=== PATIENT | female | born 1955 | race Caucasian/White ===

== ENCOUNTER 2022-10-16 07:33 | Outpatient (OUT) | payer MEDICARE, MEDICAID, SELFPAY ==
[2022-10-16 08:19] LABS: Estimated Average Glucose 163 mg/dL; Glycohemoglobin A1C 7.3 % (4.5-6.2)
== END 2022-10-16 07:34 | disposition home or self-care (01) ==
LOC: LAB 07:37
PROVIDERS: PCP Nurse Practitioner; Visit Provider Nurse Practitioner
DX: E11.9 Type 2 diabetes mellitus without complications (principal)
CPT/HCPCS: 36415; 83036

== ENCOUNTER 2022-12-02 08:05 | Outpatient (OUT) | payer MEDICARE, MEDICAID, SELFPAY ==
--- NOTE | 2022-12-02 08:17 | MR_ITS ---
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 Images were performed without and with intravenous Dotarem contrast. FINDINGS: IACS: No evidence of acoustic schwannoma or other posterior fossa mass. INNER EARS: No abnormal signal intensity. MIDDLE EARS: No fluid or abnormal soft tissue. MASTOIDS: No fluid or abnormal soft tissue. SKULL BASE: Fluid-filled pituitary fossa; pituitary atrophy versus arachnoid cyst. CEREBRUM: Numerous T2 hyperintensities throughout the periventricular and subcortical deep white matter. No edema, hemorrhage, mass, acute infarction, or inappropriate atrophy. CEREBELLUM: No edema, hemorrhage, mass, acute infarction, or inappropriate atrophy. BRAINSTEM: No edema, hemorrhage, mass, acute infarction, or inappropriate atrophy. CSF SPACES: Ventricles, cisterns, and sulci are appropriate for age. No hydrocephalus, subarachnoid hemorrhage, or mass. SINUSES: Limited views demonstrate no significant mucosal thickening or fluid. ORBITS: Limited views are unremarkable. OTHER: No abnormal meningeal or parenchymal enhancement. MR/MR head/brain wo/w con IMPRESSION: 1. No abnormal or suspicious findings to account for patient's right side hearing loss. 2. Numerous T2 hyperintensities throughout the deep white matter; chronic small vessel ischemic changes versus demyelinating process/multiple sclerosis. 3. Mild atrophy; age consistent. Electronically authenticated by: GEORGINA HATCH Date: 12/03/2022 07:30
[2022-12-02 08:22] LABS: Estimated GFR (African America >60 (>=60); Estimated GFR (Non-African Ame >60 (>=60)
== END 2022-12-02 08:06 | disposition home or self-care (01) ==
LOC: LAB 08:06
PROVIDERS: PCP Nurse Practitioner; Visit Provider Otolaryngology
DX: H90.3 Sensorineural hearing loss, bilateral (principal); H93.11 Tinnitus, right ear
CPT/HCPCS: 36415; 70553; 82565; A9575

== ENCOUNTER 2023-01-07 08:43 | Outpatient (OUT) | payer MEDICARE, MEDICAID, SELFPAY ==
--- NOTE | 2023-01-07 08:48 | XR_ITS ---
The [address] [address] Patient Name: KEE MANUEL MRN: [id number] date: 1955 Sex: F Assigned Patient Location: [facility] Current Patient Location: [facility] Accession/Order Number: [id number] Exam Date: 01/07/2023 09:05 Report Date: 01/07/2023 09:39 At the request of: ADRI BARRAGAN Procedure: XR hip RT min 2V EXAM: Right hip HISTORY: . Right Thigh Pain With Numbness . COMPARISON: None. TECHNIQUE: 3 views FINDINGS: Bony pelvis is intact. No fracture or bony destructive process is noted. No fracture or dislocation of the left hip is noted. Joint spaces well-maintained. Minimal spurring is noted involving the femoral head. XR/XR hip RT min 2V IMPRESSION: 1. No acute abnormality of the pelvis. 2. Early osteoarthritic changes of the right hip. Electronically authenticated by: LIZY COLON Date: 01/07/2023 09:39
--- NOTE | 2023-01-07 08:48 | XR_ITS ---
[place] [id number] Patient Name: KEE MANUEL MRN: [id number] date: 1955 Sex: F Assigned Patient Location: [facility] Current Patient Location: [facility] Accession/Order Number: [id number] Exam Date: 01/07/2023 09:05 Report Date: 01/07/2023 13:06 At the request of: ADRI BARRAGAN Procedure: XR lumbar spine min 4V EXAM: XR lumbar spine min 4V HISTORY: Right Thigh Pain With Numbness COMPARISON: None. TECHNIQUE: 5 views FINDINGS: Satisfactory alignment. Maintained vertebral body heights and disc spaces. Multilevel endplate degenerative changes and facet arthropathy of L3-S1. No acute fracture or significant subluxation. Scattered calcified atherosclerotic disease of aorta. XR/XR lumbar spine min 4V IMPRESSION: Degenerative changes as above. Electronically authenticated by: GRACY VILLASENOR Date: 01/07/2023 13:06
== END 2023-01-07 08:44 | disposition home or self-care (01) ==
LOC: RAD 08:43
PROVIDERS: PCP Nurse Practitioner; Visit Provider Nurse Practitioner
DX: M79.651 Pain in right thigh (principal); R20.0 Anesthesia of skin
CPT/HCPCS: 72110; 73502

== ENCOUNTER 2023-04-23 10:05 | Outpatient (OUT) | payer MEDICARE, MEDICAID, SELFPAY ==
[2023-04-23 11:03] LABS: Estimated Average Glucose 134 mg/dL; Glycohemoglobin A1C 6.3 % (4.5-6.2)
== END 2023-04-23 10:06 | disposition home or self-care (01) ==
LOC: LAB 10:06
PROVIDERS: PCP Nurse Practitioner; Visit Provider Nurse Practitioner
DX: E11.9 Type 2 diabetes mellitus without complications (principal)
CPT/HCPCS: 36415; 83036

== ENCOUNTER 2023-07-10 08:54 | Outpatient (OUT) | payer MEDICARE, MEDICAID, SELFPAY ==
--- NOTE | 2023-07-10 08:56 | MM_ITS ---
Patient Name: KEE MANUEL MR#: [id number] : 1955 Exam Date: 07/10/2023 Ordering Doctor: ARLEEN Nieto CNP RADIOLOGY REPORT PROCEDURE: MM TOMOSYNTHESIS SCREENING BI COMPARISON: MG MAMM SCREEN 3D VEDA CAD, 07/04/2022. MG MAMM SCREEN 3D [facility]A CAD, 07/02/2021. MG MAMM SCREEN [facility]A W CAD, 06/30/2020. MAMMO VEDA SCREEN, 01/13/2012. INDICATIONS: Screening Calculator Name NCI Breast Cancer Risk Assessment Tool 5 Year Breast Cancer Risk 2.10% Lifetime Breast Cancer Risk 6.40% Personal Breast Cancer No Personal Ovarian Cancer No Treatments None Family Cancers Daughter with endometrial cancer at age 36; Grandfather-maternal with pancreatic cancer at age ~65. LOCATION: [facility] BREAST COMPOSITION: Scattered areas fibroglandular density. FINDINGS: DIAGNOSTIC CATEGORY 2--BENIGN FINDING: RIGHT BREAST: No significant suspicious finding. Scattered benign-appearing calcifications are present. No significant change has occurred. LEFT BREAST: No significant suspicious finding. Scattered benign-appearing calcifications are present. No significant change has occurred. RECOMMENDATIONS: ROUTINE MAMMOGRAM AND CLINICAL EVALUATION IN 12 MONTHS. PLEASE NOTE: A NORMAL MAMMOGRAM DOES NOT EXCLUDE THE POSSIBILITY OF BREAST CANCER. A CLINICALLY SUSPICIOUS PALPABLE LUMP SHOULD BE BIOPSIED. Dictated by: Darrick Sanchez M.D. on 07/11/2023 at 08:33 Approved by: Darrick Sanchez M.D. on 07/11/2023 at 08:44
--- OUTSIDE RECORDS SUMMARY | 2023-07-10 09:03 | XMS_ITS | CCD ---
Author Organization [facility] Care Team Providers Care Field Assessor Name Role Phone PHYSICIAN, DEFAULT Unavailable Unavailable PHYSICIAN, DEFAULT Unavailable Unavailable PHYSICIAN, DEFAULT Unavailable Unavailable PHYSICIAN, DEFAULT Unavailable Unavailable AICHHOLZ, STELLA J Primary Care Physician AICHHOLZ, FOOD MOBILE DRIVER STELLA Attending Unavailable AICHHOLZ, FOOD MOBILE DRIVER STELLA Primary Care Unavailable AICHHOLZ, FOOD MOBILE DRIVER STELLA Admitting Unavailable AICHHOLZ, FOOD MOBILE DRIVER STELLA Consulting Unavailable AICHHOLZ, FOOD MOBILE DRIVER STELLA Admitting Unavailable AICHHOLZ, FOOD MOBILE DRIVER STELLA Attending Unavailable AICHHOLZ, FOOD MOBILE DRIVER STELLA Primary Care Unavailable AICHHOLZ, FOOD MOBILE DRIVER STELLA Consulting Unavailable DR GEORGINA HATCH Consulting Unavailable AICHHOLZ, FOOD MOBILE DRIVER STELLA Attending Unavailable AICHHOLZ, FOOD MOBILE DRIVER STELLA Primary Care Unavailable AICHHOLZ, FOOD MOBILE DRIVER STELLA Admitting Unavailable AICHHOLZ, FOOD MOBILE DRIVER STELLA Consulting Unavailable AICHHOLZ, FOOD MOBILE DRIVER STELLA Attending Unavailable AICHHOLZ, FOOD MOBILE DRIVER STELLA Primary Care Unavailable AICHHOLZ, FOOD MOBILE DRIVER STELLA Referring Unavailable AICHHOLZ, FOOD MOBILE DRIVER STELLA Admitting Unavailable AICHHOLZ, FOOD MOBILE DRIVER STELLA Consulting Unavailable DR LIZY MEADE V Consulting Unavailable AICHHOLZ, FOOD MOBILE DRIVER STELLA Primary Care Unavailable AICHHOLZ, FOOD MOBILE DRIVER STELLA Attending Unavailable AICHHOLZ, FOOD MOBILE DRIVER STELLA Admitting Unavailable AICHHOLZ, FOOD MOBILE DRIVER STELLA Consulting Unavailable AICHHOLZ, FOOD MOBILE DRIVER STELLA Consulting Unavailable AICHHOLZ, FOOD MOBILE DRIVER STELLA Primary Care Unavailable AICHHOLZ, FOOD MOBILE DRIVER STELLA Attending Unavailable AICHHOLZ, FOOD MOBILE DRIVER STELLA Admitting Unavailable AICHHOLZ, FOOD MOBILE DRIVER STELLA Consulting Unavailable AICHHOLZ, FOOD MOBILE DRIVER STELLA Primary Care Unavailable AICHHOLZ, FOOD MOBILE DRIVER STELLA Attending Unavailable AICHHOLZ, FOOD MOBILE DRIVER STELLA Admitting Unavailable AICHHOLZ, FOOD MOBILE DRIVER STELLA Consulting Unavailable AICHHOLZ, FOOD MOBILE DRIVER STELLA Admitting Unavailable AICHHOLZ, FOOD MOBILE DRIVER STELLA Primary Care Unavailable AICHHOLZ, FOOD MOBILE DRIVER STELLA Attending Unavailable AICHHOLZ, FOOD MOBILE DRIVER STELLA Consulting Unavailable AICHHOLZ, FOOD MOBILE DRIVER STELLA Primary Care Unavailable AICHHOLKassandra, FOOD MOBILE DRIVER STELLA Attending Unavailable AICHHOLZ, FOOD MOBILE DRIVER STELLA Admitting Unavailable Melchor, Faye Devlin Attending Unavailable Melchor, Faye A Attending Unavailable SALAM, Dias Referring Unavailable SALAM, Dias Attending Unavailable SALAM, Dias Attending Unavailable SALAM, Dias Admitting Unavailable VanessaStella stephenson Primary Care Provider [phone] MD Jean Quick Attending Provider Jean Quick Attending Unavailable Jean Quick Admitting Unavailable Stella Nieto Primary Care Unavailable JEAN QUICK Referring Unavailable ANALeydaSTELLA STEPHENSON Primary Care Unavailable LAUREL, STELLA Attending Unavailable LAUREL, STELLA Attending Unavailable Allergies Allergy Classification Reported Allergen(s) Allergy Type Date of Onset Reaction(s) Facility (4 sources) Penicillins; Translations: [penicillins] Drug allergy 09-18-2013 unknown [facility] Medications Current Medications Medication Drug Class(es) Dates Sig (Normalized) Sig (Original) alendronic acid 35 mg oral tablet (1 source) Bisphosphonate Start: 03-24-2017 alendronate 35 mg oral tablet 35 mg = 1 tab(s), Oral, Refills(s) 0, Other (see comment) Start Date: 03/24/17 Status: Ordered {1 (Ascorbic Acid 7540 MG / POLYETHYLENE GLYCOL 3350 44475 MG / Potassium Chloride 1200 MG / Sodium Ascorbate 48116 MG / Sodium Chloride 3200 MG Powder for Oral Solution) / 1 (POLYETHYLENE GLYCOL 3350 445471 MG / Potassium Chloride 1000 MG / Sodium Chlori (1 source) Osmotic Laxative, Vitamin C Start: 08-19-2022 Plenvu oral powder for reconstitution See Instructions, 1 EA, Refill(s) 0, samples given to patient (Rx), See physicians instructions prior to procedure. Start Date: 08/19/22 Status: Ordered aspirin 81 mg oral tablet (1 source) Platelet Aggregation Inhibitor, Nonsteroidal Anti-inflammatory Drug Start: 03-24-2017 take 81 mg by mouth once daily aspirin 81 mg, Oral, Daily, Refills(s) 0, Prophylaxis Start Date: 03/24/17 Status: Ordered atorvastatin 80 mg oral tablet (1 source) HMG-CoA Reductase Inhibitor Start: 03-24-2017 take 80 mg by mouth once daily atorvastatin 80 mg, Oral, Daily, Refills(s) 0, High cholesterol Start Date: 03/24/17 Status: Ordered DULoxetine 30 mg oral tablet (1 source) Serotonin and Norepinephrine Reuptake Inhibitor Start: 03-24-2017 take 30 mg by mouth once daily duloxetine 30 mg, Oral, Daily, Refills(s) 0, Depression Start Date: 03/24/17 Status: Ordered Thyroxine (1 source) l-Thyroxine Start: 03-24-2017 levothyroxine 137 microgram, Oral, Daily, Refills(s) 0, Thyroid Start Date: 03/24/17 Status: Ordered 3 ml liraglutide 6 mg/ml pen injector (1 source) GLP-1 Receptor Agonist Start: 03-24-2017 inject 18 mg by subcutaneous injection once daily Victoza 6 mg/mL subcutaneous injection 18 mg, SubCutaneous, Daily, Refills(s) 0, Blood glucose Start Date: 03/24/17 Status: Ordered lisinopril 20 mg oral tablet (1 source) Angiotensin Converting Enzyme Inhibitor Start: 03-24-2017 take 20 mg by mouth once daily lisinopril 20 mg, Oral, Daily, Refills(s) 0, High blood pressure Start Date: 03/24/17 Status: Ordered loratadine 10 mg oral tablet (1 source) Start: 03-24-2017 take 10 mg by mouth once daily loratadine 10 mg, Oral, Daily, Refills(s) 0, Allergy symptoms Start Date: 03/24/17 Status: Ordered metFORMIN hydrochloride 500 mg oral tablet (1 source) Biguanide Start: 03-24-2017 take 500 mg by mouth twice daily metformin 500 mg, Oral, BID, Refills(s) 0, Blood glucose Start Date: 03/24/17 Status: Ordered 24 hr metoprolol succinate 100 mg extended release oral tablet (1 source) beta-Adrenergic German Start: 03-24-2017 metoprolol 100 mg ER Tab 100 mg = 1 tab(s), Oral, Refills(s) 0, High blood pressure Start Date: 03/24/17 Status: Ordered omeprazole 20 mg oral tablet (1 source) Proton Pump Inhibitor Start: 03-24-2017 take 20 mg by mouth once daily omeprazole 20 mg, Oral, Daily, Refills(s) 0, Control of stomach acid Start Date: 03/24/17 Status: Ordered Vitamin D (1 source) Start: 03-24-2017 Vitamin D 5,000IU, Oral, Daily, Refills(s) 0, Prophylaxis Start Date: 03/24/17 Status: Ordered Problems Problem Classification Problem Date Documented Da te Episodic/Chronic Diabetes mellitus without complication (4 sources) Type 2 diabetes mellitus without complications; Translations: [TYPE 2 DM WITHOUT COMPLICATIONS] Onset: 07-15-2022 Chronic Disorders of lipid metabolism (5 sources) Hyperlipidemia, unspecified; Translations: [HYPERLIPIDEMIA UNSPECIFIED] Onset: 09-28-2021 Chronic Nutritional deficiencies (1 source) Vitamin D deficiency, unspecified; Translations: [Vitamin D deficiency, unspecified] Onset: 06-05-2023 Chronic Other and unspecified benign neoplasm (1 source) History of polyp of colon 08-02-2022 Episodic Other bone disease and musculoskeletal deformities (1 source) Other specified disorders of bone density and structure, unspecified site; Translations: [OTH D/O BONE DEN STRUCT UNS SITE] Onset: 07-18-2022 Episodic Other endocrine disorders (2 sources) Hyperparathyroidis m, unspecified; Translations: [Hyperparathyroidi sm, unspecified] Onset: 03-26-2023 Chronic Other nutritional; endocrine; and metabolic disorders (1 source) Hypercalcemia; Translations: [Hypercalcemia] Onset: 06-05-2023 Chronic Other nutritional; endocrine; and metabolic disorders (1 source) Hypomagnesemia; Translations: [Hypomagnesemia] Onset: 06-05-2023 Chronic Other screening for suspected conditions (not mental disorders or infectious disease) (4 sources) Encounter for screening mammogram for malignant neoplasm of breast; Translations: [ENC SCR MAMMO MALIG NEOPLASM BREAST] Onset: 07-04-2022 Episodic Residual codes; unclassified (1 source) Family history of malignant neoplasm of other organs or systems; Translations: [FAM HX MALIG NEOPLASM OT ORGN/SYS] Onset: 07-12-2022 Episodic Thyroid disorders (5 sources) Hypothyroidism, unspecified; Translations: [HYPOTHYROIDISM UNSPECIFIED] Onset: 10-02-2021 Chronic Urinary tract infections (4 sources) Urinary tract infection, site not specified; Translations: [UTI SITE NOT SPECIFIED] Onset: 08-12-2022 Episodic Results Test Name Value Interpretation Reference Range Facility CALCIUMon 06-05-2023 Calcium [Mass/Vol] 10.3 mg/dL Normal 8.5-10.5 [facility] Comment on above: Performed By: #### 1 7861-6, 36049-9, 2731-8, 78025-0 #### [facility] ([id number]) [address], [address] [place] [address] MAGNESIUMon 06-05-2023 Magnesium [Mass/Vol] 1.7 mg/dL Low 1.8-2.6 [facility] Comment on above: Performed By: #### 1 7861-6, 87036-2, 2730-8, 29115-1 #### [facility] ([id number]) [address], [address] [place] [address] Parathyrin.intact [Mass/Vol] on 06-05-2023 PTH INTACT 71 pg/mL Normal 12-[address] [facility] Comment on above: Performed By: #### 1 7861-6, 97163-7, 2730-8, 52373-6 #### [facility] ([id number]) [address], [address] [place] [address] RENAL PANELon 06-05-2023 Albumin [Mass/Vol] 4.3 g/dL Normal 3.2-5.3 [facility] Comment on above: Performed By: #### R ENAL #### [facility] ([id number]) [address], [address] [place] [address] Anion gap [Moles/Vol] 8 mmol/L Normal 5-15 [facility] Comment on above: Performed By: #### R ENAL #### [facility] ([id number]) [address], [address] [place] [address] Calcium [Mass/Vol] 10.6 mg/dL High 8.5-10.5 [facility] Comment on above: Performed By: #### R ENAL #### [facility] ([id number]) [address], [address] [place] [address] Chloride [Moles/Vol] 98 mmol/L Normal 98-109 [facility] Comment on above: Performed By: #### R ENAL #### [facility] ([id number]) [address] [place] [address] CO2 [Moles/Vol] 31 mmol/L Normal 22-[address] [facility] Comment on above: Performed By: #### R ENAL #### [facility] ([id number]) [address], [address] [place] [address] Creatinine [Mass/Vol] 0.82 mg/dL Normal 0.40-1.00 [facility] Comment on above: Result Comment: METH OD TRACEABLE TO IDMS STANDARD Performed By: #### R ENAL #### [facility] ([id number]) [address], [address] [place] [address] GFR/1.73 sq M.predicted among non-blacks MDRD (S/P/Bld) [Vol rate/Area] 77 mL/min/{1.73_m2} Normal >[address] [facility] Comment on above: Result Comment: Reported eGFR is based on the CKD-EPI 2020 equation that does not use a race coefficient. Performed By: #### R ENAL #### [facility] ([id number]) [address], [address] [place] [address] Glucose [Mass/Vol] 156 mg/dL High 65-99 [facility] Comment on above: Performed By: #### R ENAL #### [facility] ([id number]) [address], [address] [place] [address] Phosphate [Mass/Vol] 3.2 mg/dL Normal 2.4-4.9 [facility] Comment on above: Performed By: #### R ENAL #### [facility] ([id number]) [address], [address] [place] [address] Potassium [Moles/Vol] 4.2 mmol/L Normal 3.5-5.0 [facility] Comment on above: Performed By: #### R ENAL #### [facility] ([id number]) [address], [address] [place] [address] Sodium [Moles/Vol] 137 mmol/L Normal 134-146 [facility] Comment on above: Performed By: #### R ENAL #### [facility] ([id number]) [address], [address] [place] [address] Urea nitrogen [Mass/Vol] 11 mg/dL Normal 5-[address] [facility] Comment on above: Performed By: #### R ENAL #### [facility] ([id number]) [address], [address] [place] [address] Vitamin D+Metabolites [Mass/ Vol]on 06-05-2023 VITAMIN D 25 HYD TOT 36.7 ng/mL Normal 30-100 [facility] Comment on above: Result Comment: Vitamin D status 25 [place] Vitamin D Deficiency <20 ng/mL Insufficiency 20-29 ng/mL Sufficiency 30-100 ng/mL Toxicity >100 ng/mL NOTE: A pediatric reference range has not been established by the paper novelty maker of this kit. The [place] [employer] recommends a Vitamin D level of = or >20ng/mL in infants and children. Performed By: #### 1 7861-6, 27596-0, 2731-8, 65398-7 #### [facility] ([id number]) [address], [address] [place] [address] Albumin [Mass/volume] in Ser um or Plasma by Bromocresol green (BCG) dye binding methoOrdered By: Jean Quick on 03-26-2023 Albumin BCG dye [Mass/Vol] 4.3 g/dL 3.5-5.7 [facility] Calcium [Mass/volume] in Ser um or PlasmaOrdered By: Jean Quick on 03-26-2023 Calcium [Mass/Vol] 10.5 mg/dL 8.6-10.3 [facility] Carbon dioxide, total [Moles /volume] in Serum or PlasmaOrdered By: Jean Quick on 03-26-2023 CO2 [Moles/Vol] 29.4 mmol/L 21.0-31.0 [facility] Chloride [Moles/volume] in S rosalind or PlasmaOrdered By: Jean Quick on 03-26-2023 Chloride [Moles/Vol] 104 mmol/L 98-107 [facility] Creatinine [Mass/volume] in Serum or PlasmaOrdered By: Jean Quick on 03-26-2023 Creatinine [Mass/Vol] 0.79 mg/dL 0.60-1.20 [facility] Glucose [Mass/volume] in Ser um or PlasmaOrdered By: Jean Quick on 03-26-2023 Glucose [Mass/Vol] 136 mg/dL 70-100 [facility] Comment on above: ADA recommended refe rence rangeRandom Glucose Reference Range is dependent on time and content of last meal. Glucose of more than 200 mg/dL in a nonstressed, ambulatory subject supports the diagnosis of Diabetes Mellitus. Magnesiumon 03-26-2023 Magnesium [Mass/Vol] 1.6 mg/dL Low 1.9-2.7 [facility] Comment on above: Performed By: #### M G, PTH, [id number], RENAL #### [facility] [address] Magnesium [Mass/volume] in S rosalind or PlasmaOrdered By: Jean Quick on 03-26-2023 Magnesium [Mass/Vol] 1.6 mg/dL 1.9-2.7 [facility] No Panel InformationOrdered By: Jean Quick on 03-26-2023 Estimated GFR (CKD-EPI) > 60.0 mL/Min [facility] Creatinine Clearance (Chem N/A [facility] Parathyrin.intact [Mass/volu me] in Serum or PlasmaOrdered By: Jean Quick on 03-26-2023 Parathyrin.intact [Mass/Vol] 105.1 pg/mL [facility] Parathyroid Hormone Intacton 03-26-2023 Parathyroid Hormone Intact 105.1 pg/mL High [facility] Comment on above: Result Comment: PERF ORMED BY: [facility] [address] [place] [address] PATHOLOGIST PRINTING EQUIPMENT MECHANIC EZEQUIEL FIGUEREDO M.D. Performed By: #### M G, PTH, [id number], RENAL #### [facility] [address] [place] [id number] [place] Phosphate [Mass/volume] in S rosalind or PlasmaOrdered By: Jean Quick on 03-26-2023 Phosphate [Mass/Vol] 3.1 mg/dL 2.5-4.5 [facility] Potassium [Moles/volume] in Serum or PlasmaOrdered By: Jean Quick on 03-26-2023 Potassium [Moles/Vol] 4.8 mmol/L 3.5-5.1 [facility] Renal Function Panelon 03-26 Albumin [Mass/Vol] 4.3 g/dL Normal 3.5-5.7 [facility] Comment on above: Performed By: #### M G, PTH, [id number], RENAL #### [facility] [address] [place] [address] [place] Anion gap [Moles/Vol] 11.4 mmol/L Normal 6.0-15.0 [facility] Comment on above: Performed By: #### M G, PTH, [id number], RENAL #### [facility] [address] [place] [address] [place] Calcium [Mass/Vol] 10.5 mg/dL High 8.6-10.3 [facility] Comment on above: Performed By: #### M G, PTH, [id number], RENAL #### [facility] [address] [place] [address] [place] Chloride [Moles/Vol] 104 mmol/L Normal 98-107 [facility] Comment on above: Performed By: #### M G, PTH, [id number], RENAL #### [facility] [address] CO2 [Moles/Vol] 29.4 mmol/L Normal 21.0-31.0 [facility] Comment on above: Performed By: #### M G, PTH, [id number], RENAL #### [address] Creatinine [Mass/Vol] 0.79 mg/dL Normal 0.60-1.20 [facility] Comment on above: Performed By: #### M G, PTH, [id number], RENAL #### [place] [address] [place] GFR/1.73 sq M.predicted MDRD (S/P/Bld) [Vol rate/Area] mL/min/{1.73_m2} Normal [facility] Comment on above: Performed By: #### M G, PTH, [id number], RENAL #### [address] Glucose [Mass/Vol] 136 mg/dL High 70-100 [facility] Comment on above: Result Comment: [place] Glucose Reference Range is dependent on time and content of last meal. Glucose of more than 200 mg/dL in a nonstressed, ambulatory subject supports the diagnosis of Diabetes Mellitus. ADA recommended reference range Performed By: #### M G, PTH, [id number], RENAL #### [address] Phosphate [Mass/Vol] 3.1 mg/dL Normal 2.5-4.5 [facility] Comment on above: Performed By: #### M G, PTH, [id number], RENAL #### [address] [place] [address] [facility] Potassium [Moles/Vol] 4.8 mmol/L Normal 3.5-5.1 [facility] Comment on above: Performed By: #### M G, PTH, [id number], RENAL #### [facility] [address] [place] [id number] [facility] Sodium [Moles/Vol] 140 mmol/L Normal 136-145 [facility] Comment on above: Performed By: #### M G, PTH, [id number], RENAL #### [facility] [address] Urea nitrogen [Mass/Vol] 8 mg/dL Normal - [facility] Comment on above: Performed By: #### M G, PTH, [id number], RENAL #### [facility] [address] Serum or plasma anion gap de terminationOrdered By: Jean Quick on 03-26-2023 Anion gap [Moles/Vol] 11.4 mmol/L 6.0-15.0 [facility] Sodium [Moles/volume] in Ser um or PlasmaOrdered By: Jean Quick on 03-26-2023 Sodium [Moles/Vol] 140 mmol/L 136-145 [facility] Urea nitrogen [Mass/volume] in Serum or PlasmaOrdered By: Jean Quick on 03-26-2023 Urea nitrogen [Mass/Vol] 8 mg/dL - [facility] Vitamin D 25 Hydroxy Totalon 03-26-2023 Vitamin D 25 Hydroxy Total 38.1 ng/mL Normal 30-100 [facility] Comment on above: Result Comment: JUAN PABLO MIN D STATUS 25([place])VITAMIN D RANGE (ng/mL) Deficient <20 Insufficient 20 to <30 Sufficient 30 to 100 Reference: Verito MF,Magali NC, Yumiko SCHWARZ, et al. Evaluation,treatment, and prevention of vitamin D deficiency; an Endocrine Society clinical practice guideline. JCEM. 2010; 96(7):1911-30. PERFORMED BY: [facility] [address] [place] [id number] PATHOLOGIST PRINTING EQUIPMENT MECHANIC EZEQUIEL FIGUEREDO M.D. Performed By: #### M G, PTH, [id number], RENAL #### [facility] [address] Vitamin D+Metabolites [Mass/ volume] in Serum or PlasmaOrdered By: Jean Quick on 03-26-2023 Vitamin D+Metabolites [Mass/Vol] 38.1 ng/mL 30-100 [facility] Comment on above: VITAMIN D STATUS 25( [place])VITAMIN D RANGE (ng/mL) Deficient <20 Insufficient 20 to <30Sufficient 30 to 100Reference: Verito MF,Magali NC, Yumiko SCHWARZ, et al. Evaluation,treatment, and prevention of vitamin D deficiency; an Endocrine Society clinical practice guideline. JCEM. 2010; 96(7):1911-30. Reminderson 09-03-2022 Reminders --- From: [facility] To: [facility] - Reminders/Recalls; Sent: 09/03/2022 18:05:18 EDT Show up: 07/28/2029 18:05:00 EDT Subject: Ambulatory Reminder Due Date/Time: 08/27/2029 18:05:00 EDT Reminder/Recall Repeat colonoscopy in 7 years(2029) due to tubular adenoma Normal [facility] XR DEXA BONE DENSITYon 09-02 XR DEXA BONE DENSITY EXAMINATION: XR DEXA BONE DENSITY, 09/02/2022 12:39 PM EDT HISTORY: Bone density finding COMPARISON: DEXA bone densitometry 03/15/2019 TECHNIQUE: Dual-energy X-ray absorptiometry (DEXA) bone density study performed for the axial skeleton. FINDINGS: SPINE ANALYSIS: Average bone mineral density is 1.125 g/cm2. T-score (standard deviation relative to young adult mean): -0.5 . +3.2% change is prior study. HIP ANALYSIS: Lowest bone mineral density is within the right femoral neck, 0.707 g/cm2. T-score (standard deviation relative to young adult mean): -2.4 . -4.6% change since prior study. IMPRESSION: World Geoff Organization Classification: Osteopenia - Moderate Fracture Risk Electronically authenticated by: GEORGINA HATCH Date: 2022-09-02 13:17 Normal [facility] Outside Colonoscopyon 2022 Outside Colonoscopy [id number]:127 Normal [facility] Physician Orderon 08-27-2022 Physician Order [id number]:127 Normal [facility] CULTURE URINEon 08-12-2022 CULTURE URINE Culture Observations: NO GROWTH. Normal [facility] Comment on above: Performed By: #### T SH, FT3 #### [facility] [address] [place] [address] Dr. Herve Machado UA RANDOM W/MICROSCOPICon BACTERIA NONE SEEN Normal NONE SEEN [facility] Comment on above: Performed By: #### T SH, FT3 #### [facility] [address] [place] [address] Dr. Herve Machado Bilirubin Ql (U) Negative Normal NEGATIVE [facility] Comment on above: Performed By: #### T SH, FT3 #### [facility] [address] [place] [address] Dr. Herve Machado CAST NONE SEEN Normal NONE SEEN [facility] Comment on above: Performed By: #### T SH, FT3 #### [facility] [address] [place] [address] Dr. Herve Machado Clarity (U) CLEAR Normal CLEAR [facility] Comment on above: Performed By: #### T SH, FT3 #### [facility] [address] [place] [address] Dr. Herve Machado Color (U) LT. YELLOW Normal YELLOW [facility] Comment on above: Performed By: #### T SH, FT3 #### [facility] [address] [place] [address] Dr. Herve Machado Crystals LM Nom (Urine sed) NONE SEEN Normal NONE SEEN [facility] Comment on above: Performed By: #### T SH, FT3 #### [facility] [address] [address] [address] Herve Machado Epithelial cells LM Ql (Urine sed) RARE Normal NONE SEEN /RARE [facility] Comment on above: Performed By: #### T , FT3 #### [facility] [address] [place] [address] Dr. Herve Machado Glucose Ql (U) 500 mg/dl Abnormal NEGATIVE [facility] Comment on above: Performed By: #### T , FT3 #### [facility] [address] [place] [address] Dr. Herve Machado Hemoglobin Ql (U) Negative Normal NEGATIVE [facility] Comment on above: Performed By: #### T , FT3 #### [facility] [address] [place] [address] Dr. Herve Machado Ketones Ql (U) Negative Normal NEGATIVE [facility] Comment on above: Performed By: #### T , FT3 #### [facility] [address] [place] [address] Dr. Herve Machado LEUKOCYTES Negative Normal NEGATIVE [facility] Comment on above: Performed By: #### T , FT3 #### [facility] [address] [place] [address] Dr. Herve Machado MUCOUS NONE SEEN Normal NONE SEEN The [facility] Comment on above: Performed By: #### , FT3 #### [facility] [address] [place] [address] Dr. Herve Machado Nitrite Ql (U) Negative Normal NEGATIVE [facility] Comment on above: Performed By: #### T , FT3 #### [facility] [address] [place] [address] Dr. Herve Machado pH (U) 5.0 [pH] Normal 5-9 [facility] Comment on above: Performed By: #### T , FT3 #### [facility] [address] [place] [address] Dr. Herve Machado RBC 0-2 Normal 0-2 [facility] Comment on above: Performed By: #### T SH, FT3 #### [facility] [address] [address] [address] Herve Machado SPEC GRAVITY 1.020 Normal 1.005-<=1.025 [facility] Comment on above: Performed By: #### T SH, FT3 #### [facility] [address] [address] [address] Herve Machado UA PROTEIN Negative Normal NEGATIVE/ TRACE [facility] Comment on above: Performed By: #### T SH, FT3 #### [facility] [address] [address] [address] Herve Machado Urobilinogen Qn (U) 0.2 {Connie'U}/dL Normal 0.2 - 1. 0 [facility] Comment on above: Performed By: #### T SH, FT3 #### [facility] [address] [address] [address] Herve Machado WBC NONE SEEN Normal NONE SEEN The [facility] Comment on above: Performed By: #### T , FT3 #### [facility] [address] [address] [address] Herve Machado Consent for Procedure/Surger yon 08-05-2022 Consent for Procedure/Surgery [id number] Normal [facility] Ambulatory Visit Summaryon 0 08-02-2022 Ambulatory Visit Summary EMILY MANUEL :1955 Visit Date:08/02/2022 Ambulatory Visit Instructions Your Diagnosis History of colon polyps Your Care Team Attending Physician - Faye Roche CNP Primary Care Physician - STELLA NIETO CNP This Is Your Medications List polyethylene glycol 3350 with electrolytes (Plenvu oral powder for reconstitution) Contact prescribing physician if questions or concerns alendronate (alendronate 35 mg oral tablet) aspirin atorvastatin duloxetine ergocalciferol (Vitamin D) levothyroxine liraglutide (Victoza 6 mg/mL subcutaneous injection) lisinopril loratadine metformin metoprolol (metoprolol 100 mg ER Tab) omeprazole Discharge Vitals Temperature (Temporal Artery) 37.0 ?C Heart Rate (Peripheral) 76 Respiratory Rate 16 Blood Pressure 137/83 Height 139.7 cm Height 55 in Weight 70.4 kg Weight 154.88 lb BMI 36.07 What to do next You Need to Schedule the Following Appointments Follow Up with Faye Roche CNP When: Within 1 to 2 weeks Comments: Following colonoscopy. Where: Medications What How Much When Instructions New polyethylene glycol 3350 with electrolytes (Plenvu oral powder for reconstitution) See instructions Prior to colonoscopy. Pickup at [facility] 1429 Unchanged alendronate (alendronate 35 mg oral tablet) 1 Tablets By Mouth Contact prescribing physician if questions or concerns Unchanged aspirin 81 Milligram By Mouth Every day Contact prescribing physician if questions or concerns Unchanged atorvastatin 80 Milligram By Mouth Every day Contact prescribing physician if questions or concerns Unchanged duloxetine 30 Milligram By Mouth Every day Contact prescribing physician if questions or concerns Unchanged ergocalciferol (Vitamin D) 5,000IU By Mouth Every day Contact prescribing physician if questions or concerns Unchanged levothyroxine 137 Microgram By Mouth Every day Contact prescribing physician if questions or concerns Unchanged liraglutide (Victoza 6 mg/ mL subcutaneous injection) 18 Milligram Subcutaneous Every day Contact prescribing physician if questions or concerns Unchanged lisinopril 20 Milligram By Mouth Every day Contact prescribing physician if questions or concerns Unchanged loratadine 10 Milligram By Mouth Every day Contact prescribing physician if questions or concerns Unchanged metformin 500 Milligram By Mouth 2 times a day Contact prescribing physician if questions or concerns Unchanged metoprolol (metoprolol 100 mg ER Tab) 1 Tablets By Mouth Contact prescribing physician if questions or concerns Unchanged omeprazole 20 Milligram By Mouth Every day Contact prescribing physician if questions or concerns Pharmacy Information [id number]: [address] [place], [place] [id number] [phone] Allergies penicillins (unknown) Problems Ongoing - Any problem that you are currently receiving treatment for. History of colon polyps Education Materials Colonoscopy, Adult A colonoscopy is an exam to look at the entire large intestine. During the exam, a lubricated, flexible tube that has a camera on the end of it is inserted into the anus and then passed into the rectum, colon, and other parts of the large intestine. You may have a colonoscopy as a part of normal colorectal screening or if you have certain symptoms, such as: ? Lack of red blood cells (anemia). ? Diarrhea that does not go away. ? Abdominal pain. ? Blood in your stool (feces). A colonoscopy can help screen for and diagnose medical problems, including: ? Tumors. ? Polyps. ? Inflammation. ? Areas of bleeding. Tell a health care provider about: ? Any allergies you have. ? All medicines you are taking, including vitamins, herbs, eye drops, creams, and sbiz-aik-spnohjt medicines. ? Any problems you or family members have had with anesthetic medicines. ? Any blood disorders you have. ? Any surgeries you have had. ? Any medical conditions you have. ? Any problems you have had passing stool. What are the risks? Generally, this is a safe procedure. However, problems may occur, including: ? Bleeding. ? A tear in the intestine. ? A reaction to medicines given during the exam. ? Infection (rare). What happens before the procedure? Eating and drinking restrictions Follow instructions from your health care provider about eating and drinking, which may include: ? A few days before the procedure ? follow a low-fiber diet. Avoid nuts, seeds, dried fruit, raw fruits, and vegetables. ? 1?3 days before the procedure ? follow a clear liquid diet. Drink only clear liquids, such as clear broth or bouillon, black coffee or tea, clear juice, clear soft drinks or sports drinks, gelatin dessert, and popsicles. Avoid any liquids that contain red or purple dye. ? On the day of the procedure ? do not eat or drink anything starting (more content not included)... Normal [facility] Gastroenterology Office/Clin ic Noteon 08-02-2022 Gastroenterology Office/Clinic Note Chief Complaint 5 year recall [facility] Staff This is a 67 year old female who presents today for a 5 year recall. History of Present Illness Patient is a 67-year-old female who presents for colonoscopy-Patien t referred from her PCP?Stella Nieto CNP. Patient had previous colonoscopy 03/[address] Orozco that revealed diverticulosis, hemorrhoids. Review of operative note from colonoscopy in 2016 revealed patient with hx. colon polyps- no record of previous colonoscopy with colon polyps available to review during today's encounter. Patient was recommended to have repeat colonoscopy in 5 years from 2017 colonoscopy- 03/2022. Patient with PMH of HLD, hypothyroidism, HTN, DM, type 2- managed by patient's PCP. Family history of colon cancer: Denies. Family history of colon polyps: Denies. Personal history of colon cancer: Denies. Personal history of colon polyps: Yes, see above. Takes aspirin daily. During today's visit, patient reports in 2013 she had previous colonoscopy in [place], [place] that showed polyps- no record to review during today's encounter. Patient reports intentional weight loss and has been watching her portions of food and has lost 70 pounds in the last 5 years. Denies change in bowel habits, black/bloody stools, nausea/vomiting, fevers/chills, and denies unintentional weight loss. Denies having any GI complaints. Review of Systems PHQ Score Initial Depression Screen Score: 0 ROS - Provider Constitutional: no fever, no chills. Skin: no Jaundice. ENMT: Denies dysphagia and heartburn. Respiratory: no shortness of breath. Cardiovascular: no chest pain. Gastrointestinal: no nausea, no vomiting, no diarrhea, no GI bleeding. Physical Exam Vitals & Measurements T: 37.0 ?C(Temporal Artery) HR: 76(Peripheral) RR: 16 BP: 137/83 HT: 55 in HT: 139.7 cm WT: 70.4 kg WT: 154.88 lb BMI: 36.07 General: Well developed, well nourished, in no acute distress Head: Normocephalic/atra umatic Lungs: Normal respiratory effort and clear to auscultation Cardio: Regular rate and rhythm, normal S1 and S2, no murmur, no rub Abdomen: Soft, non-distended, non-tender. Normoactive bowel sounds present in all 4 abdominal quadrants, bilaterally. Mental Status: Alert and oriented x3. Normal mood and affect Assessment/Plan 1. History of colon polyps (Z86.010: Personal history of colonic polyps) Review of operative note from colonoscopy in 2017 revealed patient with hx. colon polyps- no record of previous colonoscopy with colon polyps available to review during today's encounter. Previous colonoscopy 03/2017 revealed diverticulosis and hemorrhoids. Patient was previously recommended to have repeat colonoscopy 03/2022. Ordered Colonoscopy. Takes aspirin daily. Ordered: Colonoscopy (Hospital Procedure) Orders: polyethylene glycol 3350 with electrolytes, See Instructions, 1 EA, Refill(s) 0, Prior to colonoscopy., [facility], 139.7, cm, 08/02/22 10:20:00 EDT, Height/Length Dosing, 70.4, kg, 08/02/22 10:20:00 EDT, Weight Dosing Follow-up With When Contact Information Faye Roche CNP Within 1 to 2 weeks Additional Instructions: Following colonoscopy. Patient Education Colonoscopy, Adult Problem List/Past Medical History Ongoing History of colon polyps Historical No qualifying data Medications alendronate 35 mg oral tablet, 35 mg= 1 tab(s), Oral aspirin, 81 mg, Oral, Daily atorvastatin, 80 mg, Oral, Daily duloxetine, 30 mg, Oral, Daily levothyroxine, 137 mcg, Oral, Daily lisinopril, 20 mg, Oral, Daily loratadine, 10 mg, Oral, Daily metformin, 500 mg, Oral, BID metoprolol 100 mg ER Tab, 100 mg= 1 tab(s), Oral omeprazole, 20 mg, Oral, Daily Plenvu oral powder for reconstitution, See Instructions Victoza 6 mg/mL subcutaneous injection, 18 mg, SubCutaneous, Daily, Not taking Vitamin D, 5,000IU, Oral, Daily Allergies penicillins (unknown) Social History Tobacco Never (less than 100 in lifetime) Tobacco Use:. Never Smokeless Tobacco Use:., 08/02/2022 Immunizations Vaccine Date Status SARS-CoV-2 (COVID-19) [id number] 04/23/2022 Recorded SARSCoV2 mRNA(tociroer-tri s-sucros) vac 07/30/2021 Recorded pneumococcal 13-valent vaccine 02/02/2021 Recorded influenza virus vaccine, inactivated 02/02/2021 Recorded SARS-CoV-2 (COVID-19) mRNA BNT-162b2 vax 01/15/2021 Recorded SARS-CoV-2 (COVID-19) mRNA BNT-162b2 vax 07/11/2020 Recorded SARS-CoV-2 (COVID-19) mRNA BNT-162b2 vax 06/19/2020 Recorded influenza virus vaccine, inactivated 01/22/2020 Recorded influenza virus vaccine, inactivated 04/26/2019 Recorded influenza virus vaccine, inactivated 02/06/2018 Recorded influenza virus vaccine, inactivated 01/30/2017 Recorded zoster vaccine live 01/30/2016 Recorded influenza virus vaccine, inactivated 01/15/2016 Recorded influenza, whole 04/22/2012 Recorded influenza, whole 02/06/2009 Recorded Normal [facility] Comment on above: Result Comment: Maycol shrestha Signed By: Faye Roche CNP.reyes\Date and Time Signed: 08/02/22 10:38 EDT Patient Educationon 08-03-19 Patient Education Radiology Colonoscopy, Adult A colonoscopy is an exam to look at the entire large intestine. During the exam, a lubricated, flexible tube that has a camera on the end of it is inserted into the anus and then passed into the rectum, colon, and other parts of the large intestine. You may have a colonoscopy as a part of normal colorectal screening or if you have certain symptoms, such as: ? Lack of red blood cells (anemia). ? Diarrhea that does not go away. ? Abdominal pain. ? Blood in your stool (feces). A colonoscopy can help screen for and diagnose medical problems, including: ? Tumors. ? Polyps. ? Inflammation. ? Areas of bleeding. Tell a health care provider about: ? Any allergies you have. ? All medicines you are taking, including vitamins, herbs, eye drops, creams, and dmuc-wkr-hphnmxs medicines. ? Any problems you or family members have had with anesthetic medicines. ? Any blood disorders you have. ? Any surgeries you have had. ? Any medical conditions you have. ? Any problems you have had passing stool. What are the risks? Generally, this is a safe procedure. However, problems may occur, including: ? Bleeding. ? A tear in the intestine. ? A reaction to medicines given during the exam. ? Infection (rare). What happens before the procedure? Eating and drinking restrictions Follow instructions from your health care provider about eating and drinking, which may include: ? A few days before the procedure ? follow a low-fiber diet. Avoid nuts, seeds, dried fruit, raw fruits, and vegetables. ? 1?3 days before the procedure ? follow a clear liquid diet. Drink only clear liquids, such as clear broth or bouillon, black coffee or tea, clear juice, clear soft drinks or sports drinks, gelatin dessert, and popsicles. Avoid any liquids that contain red or purple dye. ? On the day of the procedure ? do not eat or drink anything starting 2 hours before the procedure, or within the time period that your health care provider recommends. Up to 2 hours before the procedure, you may continue to drink clear liquids, such as water or clear fruit juice. Bowel prep If you were prescribed an oral bowel prep to clean out your colon: ? Take it as told by your health care provider. Starting the day before your procedure, you will need to drink a large amount of medicated liquid. The liquid will cause you to have multiple loose stools until your stool is almost clear or light green. ? If your skin or anus gets irritated from diarrhea, you may use these to relieve the irritation: ? Medicated wipes, such as adult wet wipes with aloe and vitamin E. ? A skin-soothing product like petroleum jelly. ? If you vomit while drinking the bowel prep, take a break for up to 60 minutes and then begin the bowel prep again. If vomiting continues and you cannot take the bowel prep without vomiting, call your health care provider. ? To clean out your colon, you may also be given: ? Laxative medicines. ? Instructions about how to use an enema. General instructions ? Ask your health care provider about: ? Changing or stopping your regular medicines or supplements. This is especially important if you are taking iron supplements, diabetes medicines, or blood thinners. ? Taking medicines such as aspirin and ibuprofen. These medicines can thin your blood. Do not take these medicines before the procedure if your health care provider tells you not to. ? Plan to have someone take you home from the hospital or clinic. What happens during the procedure? ? An IV may be inserted into one of your veins. ? You will be given medicine to help you relax (sedative). ? To reduce your risk of infection: ? Your health care team will wash or sanitize their hands. ? Your anal area will be washed with soap. ? You will be asked to lie on your side with your knees bent. ? Your health care provider will lubricate a long, thin, flexible tube. The tube will have a camera and a light on the end. ? The tube will be inserted into your anus. ? The tube will be gently eased through your rectum and colon. ? Air will be delivered into your colon to keep it open. You may feel some pressure or cramping. ? The camera will be used to take images during the procedure. ? A small tissue sample may be removed to be examined under a microscope (biopsy). ? If small polyps are found, your health care provider may remove them and have them checked for cancer cells. ? When the exam is done, the tube will be removed. The procedure may vary among health care providers and hospitals. What happens after the procedure? ? Your blood pressure, heart rate, breathing rate, and blood oxygen level will be monitored until the medicines you were given have worn off. ? Do not drive for 24 hours after the exam. ? You may have a small amount of blood in your stool. ? You may pass gas and have mild abdominal cramping or bloating due to the air t (more content not included)... Normal [facility] Provider Letteron 07-16-2022 Provider Letter July 16, 2022 EMILY MANUEL [address] [place] [id number] EMILY MANUEL 1955 Dear Emily, We have been trying to reach you with no success. It is important that you return our call regarding your referral sent by your primary care physician to see our office upon receiving this letter. Also, at the time of your call, please provide us with your current information. Thank you for your prompt attention to this matter. Sincerely, [facility]. Normal [facility] CBC AUTO DIFFon 07-15-2022 BASO # 0.0 103/ul Normal 0.0-0.1 [facility] Comment on above: Performed By: #### C BC #### [facility] [address] [place] [address] Dr. Herve Machado Basophils/100 WBC (Bld) 0.4 % Normal 0.2-2.0 [facility] Comment on above: Performed By: #### C BC #### [facility] [address] [address] [address] Herve Machado EO # 0.2 103/ul Normal 0.0-0.7 [facility] Comment on above: Performed By: #### C BC #### [facility] [address] [place] [address] Dr. Herve Machado Eosinophils/100 WBC (Bld) 2.7 % Normal 0.9-7.0 [facility] Comment on above: Performed By: #### C BC #### [facility] [address] [place] [address] Dr. Herve Machado Erythrocyte distribution width (RBC) [Ratio] 12.3 % Normal 11.0-15.0 [facility] Comment on above: Performed By: #### C BC #### [facility] [address] [place] [address] Dr. Herve Machado Hematocrit (Bld) [Volume fraction] 43.8 % Normal 36.0-48.0 [facility] Comment on above: Performed By: #### C BC #### [facility] [address] [place] [address] Dr. Herve Machado Hemoglobin (Bld) [Mass/Vol] 14.1 g/dL Normal 12.0-16.0 [facility] Comment on above: Performed By: #### C BC #### [facility] [address] [place] [address] Dr. Herve Machado IG # 0.01 10e3/ul Normal 0.00-0.03 [facility] Comment on above: Performed By: #### C BC #### [facility] [address] [place] [address] Dr. Herve Machado IG % 0.1 % Normal 0.0-0.5 [facility] Comment on above: Performed By: #### C BC #### [facility] [address] [place] [address] Dr. Herve Machado LYMPH # 1.7 103/ul Normal 1.2-3.8 [facility] Comment on above: Performed By: #### C BC #### [facility] [address] [place] [address] Dr. Herve Machado Lymphocytes/100 WBC (Bld) 23.6 % Normal 20.5-60.0 [facility] Comment on above: Performed By: #### C BC #### [facility] [address] [place] [address] Dr. Herve Machado MANUAL DIFF REQ NO Normal [facility] Comment on above: Performed By: #### C BC #### [facility] [address] [place] [address] Dr. Herve Machado MCH (RBC) [Entitic mass] 31.1 pg Normal 26.7-34.0 [facility] Comment on above: Performed By: #### C BC #### [facility] [address] [place] [address] Dr. Herve Machado MCHC (RBC) [Mass/Vol] 32.2 g/dL Normal 29.9-35.2 [facility] Comment on above: Performed By: #### C BC #### [facility] [address] [place] [address] Dr. Herve Machado MCV (RBC) [Entitic vol] 96.5 fL Normal 81.0-99.0 [facility] Comment on above: Performed By: #### C BC #### [facility] [address] [place] [address] Dr. Herve Machado MONO # 0.4 103/ul Normal 0.3-0.8 [facility] Comment on above: Performed By: #### C BC #### [facility] [address] [place] [address] Dr. Herve Machado Monocytes/100 WBC (Bld) 5.8 % Normal 1.7-12.0 [facility] Comment on above: Performed By: #### C BC #### [facility] [address] [place] [address] Dr. Herve Machado NEUT # 4.9 103/ul Normal 1.4-6.5 [facility] Comment on above: Performed By: #### C BC #### [facility] [address] [place] [address] Dr. Herve Machado Neutrophils/100 WBC (Bld) 67.4 % Normal 43.0-75.0 [facility] Comment on above: Performed By: #### C BC #### [facility] [address] [place] [address] Dr. Herve Machado Platelet mean volume (Bld) [Entitic vol] 9.9 fL Normal 9.5-13.5 [facility] Comment on above: Performed By: #### C BC #### [facility] [address] [address] [address] Herve Machado PLT 229 103/ul Normal 150-450 [facility] Comment on above: Performed By: #### C BC #### [facility] [address] [address] [address] Herve Machado RBC 4.54 106/ul Normal 4.20-5.40 [facility] Comment on above: Performed By: #### C BC #### [facility] [address] [address] [address] Herve Machado WBC 7.3 103/ul Normal 4.0-11.0 [facility] Comment on above: Performed By: #### C BC #### [facility] [address] [place] [address] Dr. Herve Machado GLYCOHEMOGLOBIN A1Con 2022 ADA RECOMMENDATION SEE BELOW Normal [facility] Comment on above: Result Comment: ADA RECOMMENDED LIMIT 4.0 - 6.0 ADA THERAPEUTIC TARGET < 7.0 ACTION SUGGESTED > 7.0 Performed By: #### T SH, FT3 #### [facility] [address] [place] [address] Dr. Herve Machado Glucose [Mass/Vol] 160 mg/dL Normal [facility] Comment on above: Performed By: #### T SH, FT3 #### [facility] [address] [place] [address] Dr. Herve Machado HbA1c (Bld) [Mass fraction] 7.2 % Critically high 4.5-6.2 [facility] Comment on above: Performed By: #### T SH, FT3 #### [facility] [address] [place] [address] Dr. Herve Machado LIPID PROFILEon 07-15-2022 CHOL-HDL RATIO NORM SEE BELOW Normal [facility] Comment on above: Result Comment: 3.3 - 4.4 LOW RISK 4.4 - 7.1 AVERAGE RISK 7.1 - 11.0 MODERATE RISK >11.0 HIGH RISK Performed By: #### T SH, FT3 #### [facility] [address] [address] [address] Herve Machado Cholesterol [Mass/Vol] 136 mg/dL Normal <=200 [facility] Comment on above: Performed By: #### T SH, FT3 #### [facility] [address] [address] [address] Herve Machado Cholesterol in HDL [Mass/Vol] 51 mg/dL Normal 40-60 [facility] Comment on above: Performed By: #### T SH, FT3 #### [facility] [address] [address] [address] Herve Machado Cholesterol in LDL [Mass/Vol] 68.6 mg/dL Normal [facility] Comment on above: Performed By: #### T SH, FT3 #### [facility] [address] [address] [address] Herve Machado Cholesterol.total/Cholest rivas in HDL [Mass ratio] 2.7 {ratio} Normal [facility] Comment on above: Performed By: #### T SH, FT3 #### [facility] [address] [address] [address] Herve Machado HDL NORMAL > or = 60 mg/dl - LOW CARDIOVASCULAR RISK <40 mg/dl - HIGH CARDIOVASCULAR RISK Normal [facility] Comment on above: Performed By: #### T SH, FT3 #### [facility] [address] [address] [address] Herve Machado LDL CALC NORMAL SEE BELOW Normal [facility] Comment on above: Result Comment: <100 mg/dl OPTIMAL 100 - 129 mg/dl NEAR OR ABOVE OPTIMAL 130 - 159 mg/dl BORDERLINE HIGH 160 - 189 mg/dl HIGH >190 mg/dl VERY HIGH Performed By: #### T SH, FT3 #### [facility] [address] [address] [address] Herve Machado Triglyceride [Mass/Vol] 82 mg/dL Normal <=150 [facility] Comment on above: Performed By: #### T SH, FT3 #### [facility] [address] [address] [address] Herve Machado VLDL CALC 16.4 mg/dL Normal [facility] Comment on above: Performed By: #### T SH, FT3 #### [facility] [address] [place] [address] Dr. Herve Machado MICROALBUMIN, RAND URon 06-20 mALB <1.3 Normal <=30.0 [facility] Comment on above: Performed By: #### T ASIA, FT3 #### [facility] [address] [place] [address] Dr. Herve Machado PROF 14(COMP METB)on 023 Albumin [Mass/Vol] 3.6 g/dL Normal 3.4-5.0 [facility] Comment on above: Performed By: #### T ASIA, FT3 #### [facility] [address] [place] [address] Dr. Herve Machado Albumin/Globulin [Mass ratio] 1.1 {ratio} Normal [facility] Comment on above: Performed By: #### T ASIA, FT3 #### [facility] [address] [place] [address] Dr. Herve Machado ALP [Catalytic activity/Vol] 64 U/L Normal 46-116 [facility] Comment on above: Performed By: #### T ASIA, FT3 #### [facility] [address] [place] [address] Dr. Herve Machado ALT [Catalytic activity/Vol] 21 U/L Normal 14-59 [facility] Comment on above: Performed By: #### T ASIA, FT3 #### [facility] [address] [place] [address] Dr. Herve Machado Anion gap [Moles/Vol] 11.2 mmol/L Normal [facility] Comment on above: Performed By: #### T SH, FT3 #### [facility] [address] [place] [address] Dr. Herve Machado AST [Catalytic activity/Vol] 18 U/L Normal 15-37 [facility] Comment on above: Performed By: #### T ASIA, FT3 #### [facility] [address] [place] [address] Dr. Herve Machado Bilirubin [Mass/Vol] 0.6 mg/dL Normal 0.2-1.0 [facility] Comment on above: Performed By: #### T SH, FT3 #### [facility] [address] [place] [address] Dr. Herve Machado Calcium [Mass/Vol] 10.2 mg/dL Critically high 8.5-10.1 [facility] Comment on above: Performed By: #### T SH, FT3 #### [facility] [address] [place] [address] Dr. Herve Machado Chloride [Moles/Vol] 107 mmol/L Normal 98-107 [facility] Comment on above: Performed By: #### T SH, FT3 #### [facility] [address] [place] [address] Dr. Herve Machado CO2 [Moles/Vol] 28.3 mmol/L Normal 21.0-32.0 [facility] Comment on above: Performed By: #### T SH, FT3 #### [facility] [address] [place] [address] Dr. Herve Machado Creatinine [Mass/Vol] 0.66 mg/dL Normal 0.55-1.02 [facility] Comment on above: Performed By: #### T SH, FT3 #### [facility] [address] [place] [address] Dr. Herve Machado EGFR-AF PRYDEINIG >60 Normal >=60 [facility] Comment on above: Performed By: #### T SH, FT3 #### [facility] [address] [place] [address] Dr. Herve Machado EGFR-NON AF PRYDEINIG >60 Normal >=60 [facility] Comment on above: Performed By: #### T SH, FT3 #### [facility] [address] [place] [address] Dr. Herve Machado Globulin (S) [Mass/Vol] 3.3 g/dL Normal [facility] Comment on above: Performed By: #### T SH, FT3 #### [facility] [address] [place] [address] Dr. Herve Machado Glucose [Mass/Vol] 154 mg/dL Critically high 74-106 [facility] Comment on above: Performed By: #### T ASIA, FT3 #### [facility] [address] [place] [address] Dr. Herve Machado Potassium [Moles/Vol] 4.5 mmol/L Normal 3.5-5.1 [facility] Comment on above: Performed By: #### T ASIA, FT3 #### [facility] [address] [place] [address] Dr. Herve Machado Protein [Mass/Vol] 6.9 g/dL Normal 6.4-8.2 [facility] Comment on above: Performed By: #### T ASIA, FT3 #### [facility] [address] [place] [address] Dr. Herve Machado Sodium [Moles/Vol] 142 mmol/L Normal 136-145 [facility] Comment on above: Performed By: #### T ASIA, FT3 #### [facility] [address] [place] [address] Dr. Herve Machado Urea nitrogen [Mass/Vol] 11.0 mg/dL Normal 7.0-18.0 [facility] Comment on above: Performed By: #### T ASIA, FT3 #### [facility] [address] [place] [address] Dr. Herve Machado Urea nitrogen/Creatinine [Mass ratio] 16.7 mg/mg Normal [facility] Comment on above: Performed By: #### T ASIA, FT3 #### [facility] [address] [place] [address] Dr. Herve Machado UA RANDOM W/MICROSCOPICon BACTERIA MODERATE Abnormal NONE SEEN [facility] Comment on above: Performed By: #### U AMIC #### [facility] [address] [place] [address] Dr. Herve Machado Bilirubin Ql (U) Negative Normal NEGATIVE [facility] Comment on above: Performed By: #### U AMIC #### [facility] [address] [address] [address] Herve Machado CAST NONE SEEN Normal NONE SEEN [facility] Comment on above: Performed By: #### U AMIC #### [facility] [address] [address] [address] Herve Machado Clarity (U) CLEAR Normal CLEAR [facility] Comment on above: Performed By: #### U AMIC #### [facility] [address] [address] [address] Herve Machado Color (U) LT. YELLOW Normal YELLOW [facility] Comment on above: Performed By: #### U AMIC #### [facility] [address] [address] [address] Herve Machado Crystals LM Nom (Urine sed) NONE SEEN Normal NONE SEEN [facility] Comment on above: Performed By: #### U AMIC #### [facility] [address] [place] [address] Dr. Herve Machado Epithelial cells LM Ql (Urine sed) FEW Abnormal NONE SEEN /RARE [facility] Comment on above: Performed By: #### U AMIC #### [facility] [address] [place] [address] Dr. Herve Machado Glucose Ql (U) Negative Normal NEGATIVE [facility] Comment on above: Performed By: #### U AMIC #### [facility] [address] [place] [address] Dr. Herve Machado Hemoglobin Ql (U) Negative Normal NEGATIVE [facility] Comment on above: Performed By: #### U AMIC #### [facility] [address] [place] [address] Dr. Herve Machado Ketones Ql (U) Negative Normal NEGATIVE [facility] Comment on above: Performed By: #### U AMIC #### [facility] [address] [place] [address] Dr. Herve Machado LEUKOCYTES Negative Normal NEGATIVE [facility] Comment on above: Performed By: #### U AMIC #### [facility] [address] [place] [address] Dr. Herve Machado MUCOUS NONE SEEN Normal NONE SEEN [facility] Comment on above: Performed By: #### U AMIC #### [facility] [address] [address] [address] Herve Machado Nitrite Ql (U) Positive Abnormal NEGATIVE [facility] Comment on above: Performed By: #### U AMIC #### [facility] [address] [place] [address] Dr. Herve Machado pH (U) 6.0 [pH] Normal 5-9 [facility] Comment on above: Performed By: #### U AMIC #### [facility] [address] [address] [address] Herve Machado RBC 0-2 Normal 0-2 [facility] Comment on above: Performed By: #### U AMIC #### [facility] [address] [place] [address] Dr. Herve Machado SPEC GRAVITY 1.010 Normal 1.005-<=1.025 [facility] Comment on above: Performed By: #### U AMIC #### [facility] [address] [place] [address] Dr. Herve Machado UA PROTEIN Negative Normal NEGATIVE/ TRACE [facility] Comment on above: Performed By: #### U AMIC #### [facility] [address] [place] [address] Dr. Herve Machado Urobilinogen Qn (U) 0.2 {Connie'U}/dL Normal 0.2 - 1. 0 [facility] Comment on above: Performed By: #### U AMIC #### [facility] [address] [place] [address] Dr. Herve Machado WBC 2-5 Abnormal NONE SEEN [facility] Comment on above: Performed By: #### U AMIC #### [facility] [address] [place] [address] Dr. Herve Machado Physician Referralon 023 Physician Referral [phone] [id number] Normal [facility] MG MAMM SCREEN 3D VEDA CADon 07-04-2022 MG MAMM SCREEN 3D VEDA CAD Patient: EMILY MANUEL Exam Date: 07/04/2022 : 1955 Gender:F Ordering : ARLEEN STELLA NIETO [employer] Admission #: [id number] Family : Order #: [id number] CLICK HERE TO VIEW EXAM RADIOLOGY REPORT PROCEDURE: MAMMOGRAM SCREENING 3D BILATERAL CAD COMPARISON: MG MAMM SCREEN VEDA W CAD, 06/30/2020. MG MAMM SCREEN 3D VEDA CAD, 07/02/2021. INDICATIONS: Screening mammography Calculator Name NCI Breast Cancer Risk Assessment Tool 5 Year Breast Cancer Risk 2.10% Lifetime Breast Cancer Risk 6.70% Personal Breast Cancer No Personal Ovarian Cancer No Treatments None Family Cancers Daughter with endometrial cancer at age 36; Grandfather-matern al with pancreatic cancer at age 65. LOCATION: [facility] BREAST COMPOSITION: Scattered areas fibroglandular density. FINDINGS: DIAGNOSTIC CATEGORY 2--BENIGN FINDING. NO CHANGE FROM COMPARISON. Scattered benign-appearing calcifications are present. RIGHT BREAST: No significant suspicious finding. LEFT BREAST: No significant suspicious finding. RECOMMENDATIONS: ROUTINE MAMMOGRAM AND CLINICAL EVALUATION IN 12 MONTHS. PLEASE NOTE: A NORMAL MAMMOGRAM DOES NOT EXCLUDE THE POSSIBILITY OF BREAST CANCER. A CLINICALLY SUSPICIOUS PALPABLE LUMP SHOULD BE BIOPSIED. Dictated by: Lizy Meade MD on 07/04/2022 at 09:54 Approved by: Lizy Meade MD on 07/04/2022 at 10:24 Normal [facility] GLYCOHEMOGLOBIN A1Con 2021 ADA RECOMMENDATION SEE BELOW Normal [facility] Comment on above: Result Comment: ADA RECOMMENDED LIMIT 4.0 - 6.0 ADA THERAPEUTIC TARGET < 7.0 ACTION SUGGESTED > 7.0 Performed By: #### A 1C #### [facility] [address] [address] [address] Herve Machado Glucose [Mass/Vol] 189 mg/dL Normal [facility] Comment on above: Performed By: #### A 1C #### [facility] [address] [address] [address] Herve Machado HbA1c (Bld) [Mass fraction] 8.2 % Critically high 4.5-6.2 [facility] Comment on above: Performed By: #### A 1C #### [facility] [address] [address] [address] Herve Machado FREE T3on 02-28-2022 FREE T3 2.44 pg/mlL Normal 2.18-3.98 [facility] Comment on above: Performed By: #### T SH, FT3 #### [facility] [address] [place] [address] Dr. Herve Machado FREE T4on 02-28-2022 Free T4 [Mass/Vol] 1.48 ng/dL Critically high 0.76-1.46 [facility] Comment on above: Performed By: #### T SH, FT3 #### [facility] [address] [place] [address] Dr. Herve Machado TSHon 02-28-2022 TSH 1.115 uIU/mL Normal 0.358-3.740 [facility] Comment on above: Performed By: #### T SH, FT3 #### [facility] [address] [place] [address] Dr. Herve Machado FREE T3on 11-27-2021 FREE T3 2.54 pg/mlL Normal 2.18-3.98 [facility] Comment on above: Performed By: #### T SH, FT3 #### [facility] [address] [place] [address] Dr. Herve Machado FREE T4on 11-27-2021 Free T4 [Mass/Vol] 1.85 ng/dL Critically high 0.76-1.46 [facility] Comment on above: Performed By: #### T SH, FT3 #### [facility] [address] [place] [address] Dr. Herve Machado TSHon 11-27-2021 TSH 0.228 uIU/mL Critically low 0.358-3.740 [facility] Comment on above: Performed By: #### T SH, FT3 #### [facility] [address] [place] [address] Dr. Herve Machado FREE T3on 10-25-2021 FREE T3 2.50 pg/mlL Normal 2.18-3.98 [facility] Comment on above: Performed By: #### T SH, FT3 #### [facility] [address] [address] [address] Herve Machado FREE T4on 10-25-2021 Free T4 [Mass/Vol] 1.61 ng/dL Critically high 0.76-1.46 [facility] Comment on above: Performed By: #### T SH, FT3 #### [facility] [address] [address] [address] Herve Machado TSHon 10-25-2021 TSH 1.949 uIU/mL Normal 0.358-3.740 [facility] Comment on above: Performed By: #### T SH, FT3 #### [facility] [address] [address] [address] Herve Machado FREE T4on 09-28-2021 Free T4 [Mass/Vol] 1.50 ng/dL Critically high 0.76-1.46 [facility] Comment on above: Performed By: #### T SH, FT3 #### [facility] [address] [place] [address] Dr. Herve Machado LIPID PROFILEon 09-28-2021 CHOL-HDL RATIO NORM SEE BELOW Normal [facility] Comment on above: Result Comment: 3.3 - 4.4 LOW RISK 4.4 - 7.1 AVERAGE RISK 7.1 - 11.0 MODERATE RISK >11.0 HIGH RISK Performed By: #### L IPID, TSH #### [facility] [address] [place] [address] Dr. Herve Machado Cholesterol [Mass/Vol] 223 mg/dL Critically high <=200 [facility] Comment on above: Performed By: #### L IPID, TSH #### [facility] [address] [place] [address] Dr. Herve Machado Cholesterol in HDL [Mass/Vol] 53 mg/dL Normal 40-60 [facility] Comment on above: Performed By: #### L IPID, TSH #### [facility] [address] [place] [address] Dr. Herve Machado Cholesterol in LDL [Mass/Vol] 152.2 mg/dL Normal [facility] Comment on above: Performed By: #### L IPID, TSH #### [facility] [address] [address] [address] Herve Machado Cholesterol.total/Cholest rivas in HDL [Mass ratio] 4.2 {ratio} Normal [facility] Comment on above: Performed By: #### L IPID, TSH #### [facility] [address] [address] [address] Herve Machado HDL NORMAL > or = 60 mg/dl - LOW CARDIOVASCULAR RISK <40 mg/dl - HIGH CARDIOVASCULAR RISK Normal [facility] Comment on above: Performed By: #### L IPID, TSH #### [facility] [address] [address] [address] Herve Machado LDL CALC NORMAL SEE BELOW Normal [facility] Comment on above: Result Comment: <100 mg/dl OPTIMAL 100 - 129 mg/dl NEAR OR ABOVE OPTIMAL 130 - 159 mg/dl BORDERLINE HIGH 160 - 189 mg/dl HIGH >190 mg/dl VERY HIGH Performed By: #### L IPID, TSH #### [facility] [address] [address] [address] Herve Machado Triglyceride [Mass/Vol] 89 mg/dL Normal <=[address] [facility] Comment on above: Performed By: #### L IPID, TSH #### [facility] [address] [address] [address] Herve Machado VLDL CALC 17.8 mg/dL Normal [facility] Comment on above: Performed By: #### L IPID, TSH #### [facility] [address] [address] [address] Herve Machado TSHon 09-28-2021 TSH 1.423 uIU/mL Normal 0.358-3.740 [facility] Comment on above: Performed By: #### T SH, FT3 #### [facility] [address] [place] [address] Dr. Herve Machado TSH RANGE SEE BELOW Normal [facility] Comment on above: Result Comment: <0.3 4 UIU/ml HYPERTHYROID 0.34-5.60 UIU/ml EUTHYROID >5.60 UIU/ml HYPOTHYROID Performed By: #### T SH, FT3 #### [facility] [address] [address] [address] Herve Machado Encounters Encounter Date Encounter Type Care Provider Facility Start: 07-07-2023 End: 07-07-2023 ambulatory STELLA AICHHOLZ Not Available Start: 06-05-2023 End: [facility] Start: 04-23-2023 End: 04-23-2023 ambulatory STELLA AICHHOLZ Not Available Start: 04-02-2023 End: 04-02-2023 ambulatory STELLA AICHHOLZ Not Available Start: 04-01-2023 End: 04-01-2023 ambulatory STELLA AICHHOLZ Not Available Start: 03-26-2023 End: 03-26-2023 ambulatory deanna [facility] Facility:[facility] Start: 03-26-2023 End: 03-26-2023 ambulatory Stella J Vanessaholz Work Phone: [facility] Work Phone: Start: 03-26-2023 End: 03-26-2023 Patient encounter procedure Stella Mendezholz Work Phone: [facility] Work Phone: Start: 09-06-2022 ambulatory Faye Roche Facili ty:[facility] Start: 09-02-2022 End: 09-03-2022 ambulatory [employer] STELLA AICHHOLZ Facility:[facility] Start: 08-27-2022 End: 08-27-2022 Lab Drop off Dias CLIFFORD [facility] Start: 08-27-2022 End: 08-28-2022 ambulatory Dias SALAM Facility:[facility] Start: 08-12-2022 End: 08-13-2022 ambulatory [employer] STELLA AICHHOLZ Facility:[facility] Start: 08-02-2022 End: 08-03-2022 ambulatory Faye A Melchor Facility:[facility] Start: 07-15-2022 End: 07-16-2022 ambulatory ARLEEN RUSH AICLeydaHOLZ Facility:[facility] Start: 07-11-2022 ambulatory Fayeleyda BelleMelchor Facility :[facility] Start: 07-04-2022 End: 07-05-[address] LIZY MEADE Facility:[facility] Start: 04-04-2022 End: 04-05-2022 ambulatory [employer]IVER STELLA AICLeydaHOLZ Facility:[facility] Start: 02-28-2022 End: 03-01-2022 ambulatory [employer]IVER STELLA AICLeydaHOLZ Facility:[facility] Start: 11-27-2021 End: 11-28-2021 ambulatory [employer]IVER STELLA AICLeydaHOLZ Facility:[facility] Start: 10-25-2021 End: 10-26-2021 ambulatory [employer]BI[employer]IVER STELLA AICLeydaHOLZ Facility:[facility] Start: 09-28-2021 End: 09-29-2021 ambulatory [employer]BI[employer] DRIVER STELLA AICLeydaHOLZ Facility:[facility] Start: 10-23-2017 End: 10-24-2017 Ambulatory DEFAULT PHYSICIAN Facility:[facility] Start: 10-13-2017 End: 10-14-2017 Ambulatory DEFAULT PHYSICIAN Facility:[facility] Immunizations Immunization Date Immunization Notes Care Provider Fa cility 04-23-2022 SARS-CoV-2 (COVID-19 ) mRNAMUL.[id number] [facility] 07-30-2021 SARS-CoV-2 mRNA (dvpqtqlordh-fcem-ovfyr se) vaccine [facility] 02-02-2021 influenza virus vaccine, unspecified formulation [facility] 02-02-2021 pneumococcal conjuga te vaccine, 13 valent [facility] 01-15-2021 SARS-CoV-2 (COVID-19 ) mRNA BNT-162b2 vax [facility] 07-11-2020 SARS-CoV-2 (COVID-19 ) mRNA BNT-162b2 vax Dias SALAM [facility] 06-19-2020 SARS-CoV-2 (COVID-19 ) mRNA BNT-162b2 vax Dias SALAM [facility] 01-22-2020 influenza virus vaccine, unspecified formulation Dias SALAM [facility] 04-26-2019 influenza virus vaccine, unspecified formulation Dias SALAM [facility] 02-06-2018 influenza virus vaccine, unspecified formulation Dias SALAM [facility] 01-30-2017 influenza virus vaccine, unspecified formulation Dias SALAM [facility] 01-30-2016 zoster vaccine, live Dias S ALAM [facility] 01-15-2016 influenza virus vaccine, unspecified formulation Dias SALAM [facility] 04-22-2012 influenza, whole Dias SALAM [facility] 02-06-2009 influenza, whole Dias SALAM [facility] Payers Date Payer Category Payer Self-pay [id number] 1960 Medicaid [id number] 1960 Medicare [id number] 1955 Unknown [id number] 2.16.84 0.1.317479.3.579.2.593 1955 Unknown [id number] 2.16.84 0.1.290308.3.579.2.593 1955 Unknown [id number] 2.16.84 0.1.987585.3.579.2.593 1955 Unknown [id number] 2.16.84 0.1.326765.3.579.2.593 1955 Unknown [id number] 2.16.84 0.1.688778.3.579.2.593 1955 Unknown [id number] 2.16.84 0.1.579529.3.579.2.593 1955 Unknown [id number] 2.16.84 0.1.940994.3.579.2.593 1955 Unknown [id number] 2.16.84 0.1.366087.3.579.2.593 1955 Unknown [id number] 2.16.84 0.1.241175.3.579.2.593 1955 Unknown [id number] 2.16.8 40.1.934215.3.579.2.727 1955 Unknown [id number] 2.16.8 40.1.758233.3.579.2.727 1955 Unknown [id number] 2.16.8 40.1.412328.3.579.2.727 1955 Unknown [id number] 2.16.8 40.1.127980.3.579.2.727 1955 Unknown [id number] 2.16.8 40.1.366678.3.579.2.727 1955 Unknown [id number] 2.16.8 40.1.568569.3.579.2.1286 1955 Unknown [id number] 2.16.84 0.1.982266.3.579.2.1259 1955 Unknown [id number] 2.16.840 .1.948794.3.579.2.1259 1955 Unknown [id number] 2.16.840 .1.732608.3.579.2.1259 1955 Unknown [id number] 2.16.840 .1.754756.3.579.2.1259 Unknown Unknown [id number] 2.16.8 40.1.394955.3.579.2.531 Social History Date Type Detail Facility Start: 08-02-2022 Tobacco smoking status Never s moked tobacco (finding) [facility] Tobacco smoking status Never Flex [facility] Sex Assigned At Female [facility] Start: 1955 Sex Assigned At Female [facility] Evaluation + Plan note Note Date & Type Note Facility Evaluation + Plan note No data available for this section [facility] Evaluation note Note Date & Type Note Facility Evaluation note No assessment information availa [facility] Work Phone: Hospital Discharge instructions Note Date & Type Note Facility Hospital Discharge instructions No data available for this section [facility] Progress note Note Date & Type Note Facility Progress note No data available for this section [facility] Summary Purpose Family History No Family History Records FoundNo Family History Records FoundNo Family History Records FoundNo Family History Records FoundNo Family History Records FoundNo Family History Records Found Advance Directives No Advanced Directives Records Found Advance Directive Response Recorded Date/ Time Advance Directives No August 04 019 12:23pm Chief Complaint and Reason for Visit Chief Complaint E83.52 E21.3 Additional Source Comments INFORMATION SOURCE (unrecogn ized section and content) DATE CREATED AUTHOR 10/24/2017 [facility] DATE CREATED AUTHOR AUTHOR'S ORGANIZ ATION 09/02/2022 [facility] DATE CREATED AUTHOR AUTHOR'S ORGANIZ ATION 09/04/2022 [facility] DATE CREATED AUTHOR AUTHOR'S ORGANIZ ATION 05/30/2023 [facility] DATE CREATED AUTHOR AUTHOR'S ORGANIZ ATION 06/07/2023 [facility] DATE CREATED AUTHOR AUTHOR'S ORGANIZ ATION 07/07/2023 [facility] EPIC Patient Care team informatio n (unrecognized section and content) Team Status: Active Member Role Status Dates Stella Nieto Primary Care Provider Active Team Status: Inactive Member Role Status Dates Stella Bola Nieto Primary Care Provider Active Jean Quick MD Attending Provider Active Goals (unrecognized section and content) Goals may be documented in a n alternate section FOR RECORDS PERTAINING TO PATIENTS WHO ARE OR HAVE BEEN ENROLLED IN A CHEMICAL DEPENDENCY/SUBSTANCEABUSE PROGRAM, SOME INFORMATION MAY BE OMITTED. This clinical summary was aggregated from multiple sources. Caution should be exercised in using it in the provision of clinical care. This summary normalizes information from multiple sources, and as a consequence, information in this document may materially change the coding, format and clinical context of patient data. In addition, data may be omitted in some cases. CLINICAL DECISIONS SHOULD BE BASED ON THE PRIMARY CLINICAL RECORDS. [facility] [employer] provides no warranty or guarantee of the accuracy or [phone] information in [phone] [id number]
== END 2023-07-10 08:55 | disposition home or self-care (01) ==
LOC: MAMMO 08:54
PROVIDERS: PCP Nurse Practitioner; Visit Provider Nurse Practitioner
DX: Z12.31 Encounter for screening mammogram for malignant neoplasm of breast (principal); Z80.8 Family history of malignant neoplasm of other organs or systems
CPT/HCPCS: 77063; 77067

== ENCOUNTER 2023-07-13 18:35 | Emergency (ER) | payer MEDICARE, MEDICAID, SELFPAY ==
[2023-07-13 18:39] VITALS: BP 179/85; PULSE 120; RESP 18; TEMP 36.7; O2SAT 100; BMI 33.7
--- OUTSIDE RECORDS SUMMARY | 2023-07-13 18:43 | XMS_ITS | CCD ---
Author Organization [facility] Care Team Providers Care Forestry Adviser Name Role Phone PHYSICIAN, DEFAULT Unavailable Unavailable PHYSICIAN, DEFAULT Unavailable Unavailable PHYSICIAN, DEFAULT Unavailable Unavailable PHYSICIAN, DEFAULT Unavailable Unavailable AICHHOLZ, STELLA J Primary Care Physician AICHHOLZ, [employer] SUPERVISOR STELLA Attending Unavailable AICHHOLZ, [employer] SUPERVISOR STELLA Primary Care Unavailable AICHHOLZ, [employer] SUPERVISOR STELLA Admitting Unavailable AICHHOLZ, [employer] SUPERVISOR STELLA Consulting Unavailable AICHHOLZ, [employer] SUPERVISOR STELLA Admitting Unavailable AICHHOLZ, [employer] SUPERVISOR STELLA Attending Unavailable AICHHOLZ, [employer] SUPERVISOR STELLA Primary Care Unavailable AICHHOLZ, [employer] SUPERVISOR STELLA Consulting Unavailable DR GEORGINA HATCH Consulting Unavailable AICHHOLZ, [employer] SUPERVISOR STELLA Attending Unavailable AICHHOLZ, [employer] SUPERVISOR STELLA Primary Care Unavailable AICHHOLZ, [employer] W[employer]HOUSE SUPERVISOR STELLA Admitting Unavailable AICHHOLZ, [employer] W[employer]HOUSE SUPERVISOR STELLA Consulting Unavailable AICHHOLZ, [employer] W[employer]HOUSE SUPERVISOR STELLA Attending Unavailable AICHHOLZ, [employer] SUPERVISOR STELLA Primary Care Unavailable AICHHOLZ, [employer] SUPERVISOR STELLA Referring Unavailable AICHHOLZ, [employer]HOUSE SUPERVISOR STELLA Admitting Unavailable AICHHOLZ, [employer] SUPERVISOR STELLA Consulting Unavailable DR LIZY MEADE V Consulting Unavailable AICHHOLZ, [employer] SUPERVISOR STELLA Primary Care Unavailable AICHHOLZ, [employer] W[employer] SUPERVISOR STELLA Attending Unavailable AICHHOLZ, [employer] W[employer]HOUSE SUPERVISOR STELLA Admitting Unavailable AICHHOLZ, [employer] W[employer]HOUSE SUPERVISOR STELLA Consulting Unavailable AICHHOLZ, [employer] SUPERVISOR STELLA Consulting Unavailable AICHHOLZ, [employer]SE SUPERVISOR STELLA Primary Care Unavailable AICHHOLZ, [employer] SUPERVISOR STELLA Attending Unavailable AICHHOLZ, [employer] W[employer]HOUSE SUPERVISOR STELAL Admitting Unavailable AICHHOLZ, [employer] W[employer]HOUSE SUPERVISOR STELLA Consulting Unavailable AICHHOLZ, [employer]HOU[employer] SUPERVISOR STELLA Primary Care Unavailable AICHHOLZ, [employer] W[employer]HOUSE SUPERVISOR STELLA Attending Unavailable AICHHOLZ, D[employer] W[employer]HOUSE SUPERVISOR STELLA Admitting Unavailable AICHHOLZ, D[employer] W[employer]HOUSE SUPERVISOR STELLA Consulting Unavailable AICHHOLZ, [employer] W[employer]HOUSE SUPERVISOR STELLA Admitting Unavailable AICHHOLZ, [employer] W[employer]HOUSE SUPERVISOR STELLA Primary Care Unavailable AICHHOLZ, [employer] W[employer]HOUSE SUPERVISOR STELLA Attending Unavailable AICHHOLZ, [employer]HOUSE SUPERVISOR STELLA Consulting Unavailable AICHHOLZ, [employer] W[employer]HOUSE SUPERVISOR STELLA Primary Care Unavailable AICHHOLKassandra, [employer] W[employer]HOU[employer] SUPERVISOR STELLA Attending Unavailable AICHHOLZ, [employer] W[employer]HOUSE SUPERVISOR STELLA Admitting Unavailable Melchor, Faye Devlin Attending Unavailable Melchor, Faye A Attending Unavailable SALAM, Dias Referring Unavailable SALAM, Dias Attending Unavailable SALAM, Dias Attending Unavailable SALAM, Dias Admitting Unavailable VanessaStella stephenson Primary Care Provider MD Jena Quick Attending Provider Jean Quick Attending Unavailable Jean Quick Admitting Unavailable Stella Nieto Primary Care Unavailable JEAN QUICK Referring Unavailable ANALeydaSTELLA STEPHENSON Primary Care Unavailable LAUREL, STELLA Attending Unavailable LAUREL, STELLA Attending Unavailable Allergies Allergy Classification Reported Allergen(s) Allergy Type Date of Onset Reaction(s) Facility (4 sources) Penicillins; Translations: [penicillins] Drug allergy 09-18-2013 unknown [facility] Medications Current Medications Medication Drug Class(es) Dates Sig (Normalized) Sig (Original) alendronic acid 35 mg oral tablet (1 source) Bisphosphonate Start: 03-24-2017 alendronate 35 mg oral tablet 35 mg = 1 tab(s), Oral, Refills(s) 0, Other (see comment) Start Date: 03/24/17 Status: Ordered {1 (Ascorbic Acid 7540 MG / POLYETHYLENE GLYCOL 3350 86389 MG / Potassium Chloride 1200 MG / Sodium Ascorbate 79921 MG / Sodium Chloride 3200 MG Powder for Oral Solution) / 1 (POLYETHYLENE GLYCOL 3350 330614 MG / Potassium Chloride 1000 MG / [...] 06-05-2023 Calcium [Mass/Vol] 10.3 mg/dL Normal 8.5-10.5 [facility] Comment on above: Performed By: #### 1 7861-6, 83766-5, 2731-8, 97831-8 #### [facility] ([id number]) [address], [address] [place] [address] MAGNESIUMon 06-05-2023 Magnesium [Mass/Vol] 1.7 mg/dL Low 1.8-2.6 [facility] Comment on above: Performed By: #### 1 7861-6, 08327-0, 2730-8, 31421-1 #### [facility] ([id number]) [address], [address] [place] [address] Parathyrin.intact [Mass/Vol] on 06-05-2023 PTH INTACT 71 pg/mL Normal 12-88 [facility] Comment on above: Performed By: #### 1 7861-6, 64930-2, 2730-8, 08031-5 #### [facility] ([id number]) [address], [address] [place] [address] RENAL PANELon 06-05-2023 Albumin [Mass/Vol] 4.3 g/dL Normal 3.2-5.3 [facility] Comment on above: Performed By: #### R ENAL #### [facility] ([id number]) [address], [address] [place] [address] Anion gap [Moles/Vol] 8 mmol/L Normal 5-15 [facility] Comment on above: Performed By: #### R ENAL #### [facility] ([id number]) [address], [address] [place] [address] Calcium [Mass/Vol] 10.6 mg/dL High 8.5-10.5 [facility] Comment on above: Performed By: #### R ENAL #### [facility] ([id number]) [address], [address] [place] [address] Chloride [Moles/Vol] 98 mmol/L Normal 98-109 [facility] Comment on above: Performed By: #### R ENAL #### [facility] ([id number]) [address] [place] [address] CO2 [Moles/Vol] 31 mmol/L Normal 22-32 [facility] Comment on above: Performed By: #### R ENAL #### [facility] ([id number]) [address], [address] [place] [address] Creatinine [Mass/Vol] 0.82 mg/dL Normal 0.40-1.00 [facility] Comment on above: Result Comment: METH OD TRACEABLE TO IDMS STANDARD Performed By: #### R ENAL #### [facility] ([id number]) [address], [address] [place] [address] GFR/1.73 sq M.predicted among non-blacks MDRD (S/P/Bld) [Vol rate/Area] 77 mL/min/{1.73_m2} Normal >59 [facility] Comment on above: Result Comment: Reported eGFR is based on the CKD-EPI 2020 equation that does not use a race coefficient. Performed By: #### R ENAL #### [facility] ([id number]) [address], [address] [place] [address] Glucose [Mass/Vol] 156 mg/dL High 65-99 [facility] Comment on above: Performed By: #### R ENAL #### [facility] ([id number]) [address], [address] [place] [address] Phosphate [Mass/Vol] 3.2 mg/dL Normal 2.4-4.9 [facility] Comment on above: Performed By: #### R ENAL #### [facility] ([id number]) [address], [address] [place] [address] Potassium [Moles/Vol] 4.2 mmol/L Normal 3.5-5.0 [facility] Comment on above: Performed By: #### R ENAL #### [facility] ([id number]) [address], [address] [place] [address] Sodium [Moles/Vol] 137 mmol/L Normal 134-146 [facility] Comment on above: Performed By: #### R ENAL #### [facility] ([id number]) [address], [address] [place] [address] Urea nitrogen [Mass/Vol] 11 mg/dL Normal 5-27 [facility] Comment on above: Performed By: #### R ENAL #### [facility] ([id number]) [address], [address] [place] [address] Vitamin D+Metabolites [Mass/ Vol]on 06-05-2023 VITAMIN D 25 HYD TOT 36.7 ng/mL Normal 30-100 [facility] Comment on above: Result Comment: Vitamin D status 25 [place] Vitamin D Deficiency <20 ng/mL Insufficiency 20-29 ng/mL Sufficiency 30-100 ng/mL Toxicity >100 ng/mL NOTE: A pediatric reference range has not been established by the manager human capital of this kit. The [place] [employer] recommends a Vitamin D level of = or >20ng/mL in infants and children. Performed By: #### 1 7861-6, 94011-7, 2731-8, 29578-9 #### [facility] ([id number]) [address], [address] [place] [address] Albumin [Mass/volume] in Ser um or Plasma by Bromocresol green (BCG) dye binding methoOrdered By: Jean Quick on 03-26-2023 Albumin BCG dye [Mass/Vol] 4.3 g/dL 3.5-5.7 [facility] Calcium [Mass/volume] in Ser um or PlasmaOrdered By: Jean Quick on 03-26-2023 Calcium [Mass/Vol] 10.5 mg/dL 8.6-10.3 [facility] Carbon dioxide, total [Moles /volume] in Serum or PlasmaOrdered By: Jean Quick on 03-26-2023 CO2 [Moles/Vol] 29.4 mmol/L 21.0-31.0 [facility] Chloride [Moles/volume] in S rosalind or PlasmaOrdered By: Jean Quick on 03-26-2023 Chloride [Moles/Vol] 104 mmol/L 98-107 [facility] Creatinine [Mass/volume] in Serum or PlasmaOrdered By: Jean Quick on 03-26-2023 Creatinine [Mass/Vol] 0.79 mg/dL 0.60-1.20 [facility] Glucose [Mass/volume] in Ser um or PlasmaOrdered By: Jean Quick on 03-26-2023 Glucose [Mass/Vol] 136 mg/dL 70-100 [facility] Comment on above: ADA recommended refe rence rangeRandom Glucose Reference Range is dependent on time and content of last meal. Glucose of more than 200 mg/dL in a nonstressed, ambulatory subject supports the diagnosis of Diabetes Mellitus. Magnesiumon 03-26-2023 Magnesium [Mass/Vol] 1.6 mg/dL Low 1.9-2.7 [facility] Comment on above: Performed By: #### M G, PTH, [id number], RENAL #### [facility] [address] Magnesium [Mass/volume] in S rosalind or PlasmaOrdered By: Jean Quick on 03-26-2023 Magnesium [Mass/Vol] 1.6 mg/dL 1.9-2.7 [facility] No Panel InformationOrdered By: Jean Quick on 03-26-2023 Estimated GFR (CKD-EPI) > 60.0 mL/Min [facility] Creatinine Clearance (Chem N/A [facility] Parathyrin.intact [Mass/volu me] in Serum or PlasmaOrdered By: Jean Quick on 03-26-2023 Parathyrin.intact [Mass/Vol] 105.1 pg/mL [facility] Parathyroid Hormone Intacton 03-26-2023 Parathyroid Hormone Intact 105.1 pg/mL High [facility] Comment on above: Result Comment: PERF ORMED BY: [facility] [address] [place] [address] PATHOLOGIST TRAP PULLER EZEQUIEL FIGUEREDO M.D. Performed By: #### M G, PTH, [id number], RENAL #### [facility] [address] [place] [id number] [place] Phosphate [Mass/volume] in S rosalind or PlasmaOrdered By: Jean Quick on 03-26-2023 Phosphate [Mass/Vol] 3.1 mg/dL 2.5-4.5 [facility] Potassium [Moles/volume] in Serum or PlasmaOrdered By: Jean Quick on 03-26-2023 Potassium [Moles/Vol] 4.8 mmol/L 3.5-5.1 [facility] Renal Function Panelon 03-26 Albumin [Mass/Vol] 4.3 g/dL Normal 3.5-5.7 [facility] Comment on above: Performed By: #### M G, PTH, [id number], RENAL #### [facility] [address] [place] [address] [place] Anion gap [Moles/Vol] 11.4 mmol/L Normal 6.0-15.0 [facility] Comment on above: Performed By: #### M G, PTH, [id number], RENAL #### [facility] [address] [place] [address] [place] Calcium [Mass/Vol] 10.5 mg/dL High 8.6-10.3 [facility] Comment on above: Performed By: #### M G, PTH, [id number], RENAL #### [facility] [address] [place] [address] [place] Chloride [Moles/Vol] 104 mmol/L Normal 98-107 [facility] Comment on above: Performed By: #### M G, PTH, [id number], RENAL #### [facility] [address] CO2 [Moles/Vol] 29.4 mmol/L Normal 21.0-31.0 [facility] Comment on above: Performed By: #### M G, PTH, [id number], RENAL #### [address] Creatinine [Mass/Vol] 0.79 mg/dL Normal 0.60-1.20 [facility] Comment on above: Performed By: #### M G, PTH, [id number], RENAL #### [place] [address] [place] GFR/1.73 sq M.predicted MDRD (S/P/Bld) [Vol rate/Area] mL/min/{1.73_m2} Normal [facility] Comment on above: Performed By: #### M G, PTH, [id number], RENAL #### [address] Glucose [Mass/Vol] 136 mg/dL High 70-100 [facility] Comment on above: Result Comment: [place] Glucose Reference Range is dependent on time and content of last meal. Glucose of more than 200 mg/dL in a nonstressed, ambulatory subject supports the diagnosis of Diabetes Mellitus. ADA recommended reference range Performed By: #### M G, PTH, [id number], RENAL #### [address] Phosphate [Mass/Vol] 3.1 mg/dL Normal 2.5-4.5 [facility] Comment on above: Performed By: #### M G, PTH, [id number], RENAL #### [address] [place] [address] [facility] Potassium [Moles/Vol] 4.8 mmol/L Normal 3.5-5.1 [facility] Comment on above: Performed By: #### M G, PTH, [id number], RENAL #### [facility] [address] [place] [id number] [facility] Sodium [Moles/Vol] 140 mmol/L Normal 136-145 [facility] Comment on above: Performed By: #### M G, PTH, [id number], RENAL #### [facility] [address] Urea nitrogen [Mass/Vol] 8 mg/dL Normal - [facility] Comment on above: Performed By: #### M G, PTH, [id number], RENAL #### [facility] [address] Serum or plasma anion gap de terminationOrdered By: Jean Quick on 03-26-2023 Anion gap [Moles/Vol] 11.4 mmol/L 6.0-15.0 [facility] Sodium [Moles/volume] in Ser um or PlasmaOrdered By: Jean Quick on 03-26-2023 Sodium [Moles/Vol] 140 mmol/L 136-145 [facility] Urea nitrogen [Mass/volume] in Serum or PlasmaOrdered By: Jean Quick on 03-26-2023 Urea nitrogen [Mass/Vol] 8 mg/dL - [facility] Vitamin D 25 Hydroxy Totalon 03-26-2023 Vitamin D 25 Hydroxy Total 38.1 ng/mL Normal 30-100 [facility] Comment on above: Result Comment: JUAN PABLO MIN D STATUS 25([place])VITAMIN D RANGE (ng/mL) Deficient <20 Insufficient 20 to <30 Sufficient 30 to 100 Reference: Verito MF,Magali NC, Yumiko SCHWARZ, et al. Evaluation,treatment, and prevention of vitamin D deficiency; an Endocrine Society clinical practice guideline. JCEM. 2010; 96(7):1911-30. PERFORMED BY: [facility] [address] [place] [id number] PATHOLOGIST TRAP PULLER EZEQUIEL FIGUEREDO M.D. Performed By: #### M G, PTH, [id number], RENAL #### [facility] [address] Vitamin D+Metabolites [Mass/ volume] in Serum or PlasmaOrdered By: Jean Quick on 03-26-2023 Vitamin D+Metabolites [Mass/Vol] 38.1 ng/mL 30-100 [facility] Comment on above: VITAMIN D STATUS 25( [place])VITAMIN D RANGE (ng/mL) Deficient <20 Insufficient 20 to <30Sufficient 30 to 100Reference: Verito MF,Magali NC, Yumiko SCHWARZ, et al. Evaluation,treatment, and prevention of vitamin D deficiency; an Endocrine Society clinical practice guideline. JCEM. 2010; 96(7):1911-30. Reminderson 09-03-2022 Reminders --- From: [facility] To: [facility] - Reminders/Recalls; Sent: 09/03/2022 18:05:18 EDT Show up: 07/28/2029 18:05:00 EDT Subject: Ambulatory Reminder Due Date/Time: 08/27/2029 18:05:00 EDT Reminder/Recall Repeat colonoscopy in 7 years(2029) due to tubular adenoma Normal [facility] XR DEXA BONE DENSITYon 09-02 XR [...] by: GEORGINA HATCH Date: 2022-09-02 13:17 Normal [facility] Outside Colonoscopyon 2022 Outside Colonoscopy [id number]:127 Normal [facility] Physician Orderon 08-27-2022 Physician Order [id number]:127 Normal [facility] CULTURE URINEon 08-12-2022 CULTURE URINE Culture Observations: NO GROWTH. Normal [facility] Comment on above: Performed By: #### T SH, FT3 #### [facility] [address] [place] [address] Dr. Herve Machado UA RANDOM W/MICROSCOPICon BACTERIA NONE SEEN Normal NONE SEEN [facility] Comment on above: Performed By: #### T SH, FT3 #### [facility] [address] [place] [address] Dr. Herve Machado Bilirubin Ql (U) Negative Normal NEGATIVE [facility] Comment on above: Performed By: #### T SH, FT3 #### [facility] [address] [place] [address] Dr. Herve Machado CAST NONE SEEN Normal NONE SEEN [facility] Comment on above: Performed By: #### T SH, FT3 #### [facility] [address] [place] [address] Dr. Herve Machado Clarity (U) CLEAR Normal CLEAR [facility] Comment on above: Performed By: #### T SH, FT3 #### [facility] [address] [place] [address] Dr. Herve Machado Color (U) LT. YELLOW Normal YELLOW [facility] Comment on above: Performed By: #### T SH, FT3 #### [facility] [address] [place] [address] Dr. Herve Machado Crystals LM Nom (Urine sed) NONE SEEN Normal NONE SEEN [facility] Comment on above: Performed By: #### T SH, FT3 #### [facility] [address] [place] [address] [address] Herve Machado Epithelial cells LM Ql (Urine sed) RARE Normal NONE SEEN /RARE [facility] Comment on above: Performed By: #### T , FT3 #### [facility] [address] [place] [address] Dr. Herve Machado Glucose Ql (U) 500 mg/dl Abnormal NEGATIVE [facility] Comment on above: Performed By: #### T , FT3 #### [facility] [address] [place] [address] Dr. Herve Machado Hemoglobin Ql (U) Negative Normal NEGATIVE [facility] Comment on above: Performed By: #### T , FT3 #### [facility] [address] [place] [address] Dr. Herve Machado Ketones Ql (U) Negative Normal NEGATIVE [facility] Comment on above: Performed By: #### T , FT3 #### [facility] [address] [place] [address] Dr. Herve Machado LEUKOCYTES Negative Normal NEGATIVE [facility] Comment on above: Performed By: #### T , FT3 #### [facility] [address] [place] [address] Dr. Herve Machado MUCOUS NONE SEEN Normal NONE SEEN [facility] Comment on above: Performed By: #### , FT3 #### [facility] [address] [place] [address] Dr. Herve Machado Nitrite Ql (U) Negative Normal NEGATIVE [facility] Comment on above: Performed By: #### T , FT3 #### [facility] [address] [place] [address] Dr. Herve Machado pH (U) 5.0 [pH] Normal 5-9 [facility] Comment on above: Performed By: #### T , FT3 #### [facility] [address] [place] [address] Dr. Herve Machado RBC 0-2 Normal 0-2 [facility] Comment on above: Performed By: #### T SH, FT3 #### [facility] [address] [place] [address] [address] Herve Machado SPEC GRAVITY 1.020 Normal 1.005-<=1.025 [facility] Comment on above: Performed By: #### T SH, FT3 #### [facility] [address] [place] [address] [address] Hevre Machado UA PROTEIN Negative Normal NEGATIVE/ TRACE [facility] Comment on above: Performed By: #### T SH, FT3 #### [facility] [address] [place] [address] [address] Herve Machado Urobilinogen Qn (U) 0.2 {Connie'U}/dL Normal 0.2 - 1. 0 [facility] Comment on above: Performed By: #### T SH, FT3 #### [facility] [address] [place] [address] [address] Herve Machado WBC NONE SEEN Normal NONE SEEN [facility] Comment on above: Performed By: #### T , FT3 #### [facility] [address] [address] [address] Herve Machado Consent for Procedure/Surger yon 08-05-2022 Consent for Procedure/Surgery [id number]#[id number]:127 Normal [facility] Ambulatory Visit Summaryon 0 08-02-2022 Ambulatory [...] See instructions Prior to colonoscopy. Pickup at [facility] 1429 Unchanged alendronate (alendronate 35 mg oral [...] physician if questions or concerns Pharmacy Information [facility] 1429: [address] [place], [place] [id number] [phone] Allergies penicillins (unknown) Problems Ongoing - Any [...] including vitamins, herbs, eye drops, creams, and azlm-hct-jxkgifq medicines. ? Any problems you or family [...] anything starting (more content not included)... Normal [facility] Gastroenterology Office/Clin ic Noteon 08-02-2022 Gastroenterology [...] in 2013 she had previous colonoscopy in [place], [place] that showed polyps- no record to [...] 1 EA, Refill(s) 0, Prior to colonoscopy., [facility] 1429, 139.7, cm, 08/02/22 10:20:00 EDT, [...] 08/02/2022 Immunizations Vaccine Date Status SARS-CoV-2 (COVID-19) mRNAMUL.[id number] 04/23/2022 Recorded SARSCoV2 mRNA(tociroer-tri s-sucros) vac 07/30/2021 [...] Recorded influenza, whole 02/06/2009 Recorded Normal [facility] Comment on above: Result Comment: Maycol shrestha [...] including vitamins, herbs, eye drops, creams, and gzzd-tlw-fmtyknm medicines. ? Any problems you or family [...] air t (more content not included)... Normal [facility] Provider Letteron 07-16-2022 Provider Letter July 16, 2022 EMILY MANUEL [address] [place] [phone] EMILY MANUEL 1955 Dear Emily, We have [...] your prompt attention to this matter. Sincerely, [facility]. Normal [facility] CBC AUTO DIFFon 07-15-2022 BASO # 0.0 103/ul Normal 0.0-0.1 [facility] Comment on above: Performed By: #### C BC #### [facility] [address] [place] [address] Dr. Herve Machado Basophils/100 WBC (Bld) 0.4 % Normal 0.2-2.0 [facility] Comment on above: Performed By: #### C BC #### [facility] [address] [place] [address] [address] Herve Machado EO # 0.2 103/ul Normal 0.0-0.7 [facility] Comment on above: Performed By: #### C BC #### [facility] [address] [place] [address] Dr. Herve Machado Eosinophils/100 WBC (Bld) 2.7 % Normal 0.9-7.0 [facility] Comment on above: Performed By: #### C BC #### [facility] [address] [place] [address] Dr. Herve Machado Erythrocyte distribution width (RBC) [Ratio] 12.3 % Normal 11.0-15.0 [facility] Comment on above: Performed By: #### C BC #### [facility] [address] [place] [address] Dr. Herve Machado Hematocrit (Bld) [Volume fraction] 43.8 % Normal 36.0-48.0 [facility] Comment on above: Performed By: #### C BC #### [facility] [address] [place] [address] Dr. Herve Machado Hemoglobin (Bld) [Mass/Vol] 14.1 g/dL Normal 12.0-16.0 [facility] Comment on above: Performed By: #### C BC #### [facility] [address] [place] [address] Dr. Herve Machado IG # 0.01 10e3/ul Normal 0.00-0.03 [facility] Comment on above: Performed By: #### C BC #### [facility] [address] [place] [address] Dr. Herve Machado IG % 0.1 % Normal 0.0-0.5 [facility] Comment on above: Performed By: #### C BC #### [facility] [address] [place] [address] Dr. Herve Machado LYMPH # 1.7 103/ul Normal 1.2-3.8 [facility] Comment on above: Performed By: #### C BC #### [facility] [address] [place] [address] Dr. Herve Machado Lymphocytes/100 WBC (Bld) 23.6 % Normal 20.5-60.0 [facility] Comment on above: Performed By: #### C BC #### [facility] [address] [place] [address] Dr. Herve Machado MANUAL DIFF REQ NO Normal [facility] Comment on above: Performed By: #### C BC #### [facility] [address] [place] [address] Dr. Herve Machado MCH (RBC) [Entitic mass] 31.1 pg Normal 26.7-34.0 [facility] Comment on above: Performed By: #### C BC #### [facility] [address] [place] [address] Dr. Herve Machado MCHC (RBC) [Mass/Vol] 32.2 g/dL Normal 29.9-35.2 [facility] Comment on above: Performed By: #### C BC #### [facility] [address] [place] [address] Dr. Herve Machado MCV (RBC) [Entitic vol] 96.5 fL Normal 81.0-99.0 [facility] Comment on above: Performed By: #### C BC #### [facility] [address] [place] [address] Dr. Herve Machado MONO # 0.4 103/ul Normal 0.3-0.8 [facility] Comment on above: Performed By: #### C BC #### [facility] [address] [place] [address] Dr. Herve Machado Monocytes/100 WBC (Bld) 5.8 % Normal 1.7-12.0 [facility] Comment on above: Performed By: #### C BC #### [facility] [address] [place] [address] Dr. Herve Machado NEUT # 4.9 103/ul Normal 1.4-6.5 [facility] Comment on above: Performed By: #### C BC #### [facility] [address] [place] [address] Dr. Herve Machado Neutrophils/100 WBC (Bld) 67.4 % Normal 43.0-75.0 [facility] Comment on above: Performed By: #### C BC #### [facility] [address] [place] [address] Dr. Herve Machado Platelet mean volume (Bld) [Entitic vol] 9.9 fL Normal 9.5-13.5 [facility] Comment on above: Performed By: #### C BC #### [facility] [address] [address] [address] Herve Machado PLT 229 103/ul Normal 150-450 [facility] Comment on above: Performed By: #### C BC #### [facility] [address] [address] [address] Herve Machado RBC 4.54 106/ul Normal 4.20-5.40 [facility] Comment on above: Performed By: #### C BC #### [facility] [address] [address] [address] Herve Machado WBC 7.3 103/ul Normal 4.0-11.0 [facility] Comment on above: Performed By: #### C BC #### [facility] [address] [place] [address] Dr. Herve Machado GLYCOHEMOGLOBIN A1Con 2022 ADA RECOMMENDATION SEE BELOW Normal [facility] Comment on above: Result Comment: ADA RECOMMENDED LIMIT 4.0 - 6.0 ADA THERAPEUTIC TARGET < 7.0 ACTION SUGGESTED > 7.0 Performed By: #### T SH, FT3 #### [facility] [address] [place] [address] Dr. Herve Machado Glucose [Mass/Vol] 160 mg/dL Normal [facility] Comment on above: Performed By: #### T SH, FT3 #### [facility] [address] [place] [address] Dr. Herve Machado HbA1c (Bld) [Mass fraction] 7.2 % Critically high 4.5-6.2 [facility] Comment on above: Performed By: #### T SH, FT3 #### [facility] [address] [place] [address] Dr. Herve Machado LIPID PROFILEon 07-15-2022 CHOL-HDL RATIO NORM SEE BELOW Normal [facility] Comment on above: Result Comment: 3.3 - 4.4 LOW RISK 4.4 - 7.1 AVERAGE RISK 7.1 - 11.0 MODERATE RISK >11.0 HIGH RISK Performed By: #### T SH, FT3 #### [facility] [address] [address] [address] Herve Machado Cholesterol [Mass/Vol] 136 mg/dL Normal <=[address] [facility] Comment on above: Performed By: #### T SH, FT3 #### [facility] [address] [address] [address] Herve Machado Cholesterol in HDL [Mass/Vol] 51 mg/dL Normal 40-60 [facility] Comment on above: Performed By: #### T SH, FT3 #### [facility] [address] [address] [address] Herve Machado Cholesterol in LDL [Mass/Vol] 68.6 mg/dL Normal [facility] Comment on above: Performed By: #### T SH, FT3 #### [facility] [address] [address] [address] Herve Machado Cholesterol.total/Cholest rivas in HDL [Mass ratio] 2.7 {ratio} Normal [facility] Comment on above: Performed By: #### T SH, FT3 #### [facility] [address] [address] [address] Herve Machado HDL NORMAL > or = 60 mg/dl - LOW CARDIOVASCULAR RISK <40 mg/dl - HIGH CARDIOVASCULAR RISK Normal [facility] Comment on above: Performed By: #### T SH, FT3 #### [facility] [address] [address] [address] Herve Machado LDL CALC NORMAL SEE BELOW Normal [facility] Comment on above: Result Comment: <100 mg/dl OPTIMAL 100 - 129 mg/dl NEAR OR ABOVE OPTIMAL 130 - 159 mg/dl BORDERLINE HIGH 160 - 189 mg/dl HIGH >190 mg/dl VERY HIGH Performed By: #### T SH, FT3 #### [facility] [address] [address] [address] Herve Machado Triglyceride [Mass/Vol] 82 mg/dL Normal <=150 [facility] Comment on above: Performed By: #### T SH, FT3 #### [facility] [address] [address] [address] Herve Machado VLDL CALC 16.4 mg/dL Normal [facility] Comment on above: Performed By: #### T SH, FT3 #### [facility] [address] [place] [address] Dr. Herve Machado MICROALBUMIN, RAND URon 06-20 mALB <1.3 Normal <=30.0 [facility] Comment on above: Performed By: #### T ASIA, FT3 #### [facility] [address] [place] [address] Dr. Herve Machado PROF 14(COMP METB)on 023 Albumin [Mass/Vol] 3.6 g/dL Normal 3.4-5.0 [facility] Comment on above: Performed By: #### T ASIA, FT3 #### [facility] [address] [place] [address] Dr. Herve Machado Albumin/Globulin [Mass ratio] 1.1 {ratio} Normal [facility] Comment on above: Performed By: #### T ASIA, FT3 #### [facility] [address] [place] [address] Dr. Herve Machado ALP [Catalytic activity/Vol] 64 U/L Normal 46-116 [facility] Comment on above: Performed By: #### T ASIA, FT3 #### [facility] [address] [place] [address] Dr. Herve Machado ALT [Catalytic activity/Vol] 21 U/L Normal 14-59 [facility] Comment on above: Performed By: #### T ASIA, FT3 #### [facility] [address] [place] [address] Dr. Herve Machado Anion gap [Moles/Vol] 11.2 mmol/L Normal [facility] Comment on above: Performed By: #### T SH, FT3 #### [facility] [address] [place] [address] Dr. Herve Machado AST [Catalytic activity/Vol] 18 U/L Normal 15-37 [facility] Comment on above: Performed By: #### T ASIA, FT3 #### [facility] [address] [place] [address] Dr. Herve Machado Bilirubin [Mass/Vol] 0.6 mg/dL Normal 0.2-1.0 [facility] Comment on above: Performed By: #### T SH, FT3 #### [facility] [address] [place] [address] Dr. Herve Machado Calcium [Mass/Vol] 10.2 mg/dL Critically high 8.5-10.1 [facility] Comment on above: Performed By: #### T SH, FT3 #### [facility] [address] [place] [address] Dr. Herve Machado Chloride [Moles/Vol] 107 mmol/L Normal 98-107 [facility] Comment on above: Performed By: #### T SH, FT3 #### [facility] [address] [place] [address] Dr. Herve Machado CO2 [Moles/Vol] 28.3 mmol/L Normal 21.0-32.0 [facility] Comment on above: Performed By: #### T SH, FT3 #### [facility] [address] [place] [address] Dr. Herve Machado Creatinine [Mass/Vol] 0.66 mg/dL Normal 0.55-1.02 [facility] Comment on above: Performed By: #### T SH, FT3 #### [facility] [address] [place] [address] Dr. Herve Machado EGFR-AF IVORIAN >60 Normal >=60 [facility] Comment on above: Performed By: #### T SH, FT3 #### [facility] [address] [place] [address] Dr. Herve Machado EGFR-NON AF IVORIAN >60 Normal >=60 [facility] Comment on above: Performed By: #### T SH, FT3 #### [facility] [address] [place] [address] Dr. Herve Machado Globulin (S) [Mass/Vol] 3.3 g/dL Normal [facility] Comment on above: Performed By: #### T SH, FT3 #### [facility] [address] [place] [address] Dr. Herve Machado Glucose [Mass/Vol] 154 mg/dL Critically high 74-106 [facility] Comment on above: Performed By: #### T ASIA, FT3 #### [facility] [address] [place] [address] Dr. Hreve Machado Potassium [Moles/Vol] 4.5 mmol/L Normal 3.5-5.1 [facility] Comment on above: Performed By: #### T ASIA, FT3 #### [facility] [address] [place] [address] Dr. Herve Machado Protein [Mass/Vol] 6.9 g/dL Normal 6.4-8.2 [facility] Comment on above: Performed By: #### T ASIA, FT3 #### [facility] [address] [place] [address] Dr. Herve Machado Sodium [Moles/Vol] 142 mmol/L Normal 136-145 [facility] Comment on above: Performed By: #### T ASIA, FT3 #### [facility] [address] [place] [address] Dr. Herve Machado Urea nitrogen [Mass/Vol] 11.0 mg/dL Normal 7.0-18.0 [facility] Comment on above: Performed By: #### T ASIA, FT3 #### [facility] [address] [place] [address] Dr. Herve Machado Urea nitrogen/Creatinine [Mass ratio] 16.7 mg/mg Normal [facility] Comment on above: Performed By: #### T ASIA, FT3 #### [facility] [address] [place] [address] Dr. Herve Machado UA RANDOM W/MICROSCOPICon BACTERIA MODERATE Abnormal NONE SEEN [facility] Comment on above: Performed By: #### U AMIC #### [facility] [address] [place] [address] Dr. Herve Machado Bilirubin Ql (U) Negative Normal NEGATIVE [facility] Comment on above: Performed By: #### U AMIC #### [facility] [address] [address] [address] Herve Machado CAST NONE SEEN Normal NONE SEEN [facility] Comment on above: Performed By: #### U AMIC #### [facility] [address] [address] [address] Herve Machado Clarity (U) CLEAR Normal CLEAR [facility] Comment on above: Performed By: #### U AMIC #### [facility] [address] [address] [address] Herve Machado Color (U) LT. YELLOW Normal YELLOW [facility] Comment on above: Performed By: #### U AMIC #### [facility] [address] [address] [address] Herve Machado Crystals LM Nom (Urine sed) NONE SEEN Normal NONE SEEN [facility] Comment on above: Performed By: #### U AMIC #### [facility] [address] [place] [address] Dr. Herve Machado Epithelial cells LM Ql (Urine sed) FEW Abnormal NONE SEEN /RARE [facility] Comment on above: Performed By: #### U AMIC #### [facility] [address] [place] [address] Dr. Herve Machado Glucose Ql (U) Negative Normal NEGATIVE [facility] Comment on above: Performed By: #### U AMIC #### [facility] [address] [place] [address] Dr. Herve Machado Hemoglobin Ql (U) Negative Normal NEGATIVE [facility] Comment on above: Performed By: #### U AMIC #### [facility] [address] [place] [address] Dr. Herve Machado Ketones Ql (U) Negative Normal NEGATIVE [facility] Comment on above: Performed By: #### U AMIC #### [facility] [address] [place] [address] Dr. Herve Machado LEUKOCYTES Negative Normal NEGATIVE [facility] Comment on above: Performed By: #### U AMIC #### [facility] [address] [place] [address] Dr. Herve Machado MUCOUS NONE SEEN Normal NONE SEEN [facility] Comment on above: Performed By: #### U AMIC #### [facility] [address] [address] [address] Herve Machado Nitrite Ql (U) Positive Abnormal NEGATIVE [facility] Comment on above: Performed By: #### U AMIC #### [facility] [address] [place] [address] Dr. Herve Machado pH (U) 6.0 [pH] Normal 5-9 [facility] Comment on above: Performed By: #### U AMIC #### [facility] [address] [address] [address] Herve Machado RBC 0-2 Normal 0-2 [facility] Comment on above: Performed By: #### U AMIC #### [facility] [address] [place] [address] Dr. Herve Machado SPEC GRAVITY 1.010 Normal 1.005-<=1.025 [facility] Comment on above: Performed By: #### U AMIC #### [facility] [address] [place] [address] Dr. Herve Machado UA PROTEIN Negative Normal NEGATIVE/ TRACE [facility] Comment on above: Performed By: #### U AMIC #### [facility] [address] [place] [address] Dr. Herve Machado Urobilinogen Qn (U) 0.2 {Connie'U}/dL Normal 0.2 - 1. 0 [facility] Comment on above: Performed By: #### U AMIC #### [facility] [address] [place] [address] Dr. Herve Machado WBC 2-5 Abnormal NONE SEEN [facility] Comment on above: Performed By: #### U AMIC #### [facility] [address] [place] [address] Dr. Herve Machado Physician Referralon 023 Physician Referral [id number] Normal [facility] MG MAMM SCREEN 3D VEDA CADon 07-04-2022 MG MAMM SCREEN 3D VEDA CAD Patient: EMILY MANUEL Exam Date: 07/04/2022 : 1955 Gender:F Ordering : ARLEEN STELLA NIETO [employer] Admission #: [id number] Family : Order #: [id number] CLICK HERE TO VIEW EXAM RADIOLOGY REPORT [...] pancreatic cancer at age 64. LOCATION: [facility] BREAST COMPOSITION: Scattered areas fibroglandular density. FINDINGS: [...] MD on 07/04/2022 at 10:24 Normal [facility] GLYCOHEMOGLOBIN A1Con 2021 ADA RECOMMENDATION SEE BELOW Normal [facility] Comment on above: Result Comment: ADA RECOMMENDED LIMIT 4.0 - 6.0 ADA THERAPEUTIC TARGET < 7.0 ACTION SUGGESTED > 7.0 Performed By: #### A 1C #### [facility] [address] [address] [address] Herve Machado Glucose [Mass/Vol] 189 mg/dL Normal [facility] Comment on above: Performed By: #### A 1C #### [facility] [address] [address] [address] Herve Machado HbA1c (Bld) [Mass fraction] 8.2 % Critically high 4.5-6.2 [facility] Comment on above: Performed By: #### A 1C #### [facility] [address] [address] [address] Herve Machado FREE T3on 02-28-2022 FREE T3 2.44 pg/mlL Normal 2.18-3.98 [facility] Comment on above: Performed By: #### T SH, FT3 #### [facility] [address] [place] [address] Dr. Herve Machado FREE T4on 02-28-2022 Free T4 [Mass/Vol] 1.48 ng/dL Critically high 0.76-1.46 [facility] Comment on above: Performed By: #### T SH, FT3 #### [facility] [address] [place] [address] Dr. Herve Machado TSHon 02-28-2022 TSH 1.115 uIU/mL Normal 0.358-3.740 [facility] Comment on above: Performed By: #### T SH, FT3 #### [facility] [address] [place] [address] Dr. Herve Machado FREE T3on 11-27-2021 FREE T3 2.54 pg/mlL Normal 2.18-3.98 [facility] Comment on above: Performed By: #### T SH, FT3 #### [facility] [address] [place] [address] Dr. Herve Machado FREE T4on 11-27-2021 Free T4 [Mass/Vol] 1.85 ng/dL Critically high 0.76-1.46 [facility] Comment on above: Performed By: #### T SH, FT3 #### [facility] [address] [place] [address] Dr. Herve Machado TSHon 11-27-2021 TSH 0.228 uIU/mL Critically low 0.358-3.740 [facility] Comment on above: Performed By: #### T SH, FT3 #### [facility] [address] [place] [address] Dr. Herve Machado FREE T3on 10-25-2021 FREE T3 2.50 pg/mlL Normal 2.18-3.98 [facility] Comment on above: Performed By: #### T SH, FT3 #### [facility] [address] [address] [address] Herve Machado FREE T4on 10-25-2021 Free T4 [Mass/Vol] 1.61 ng/dL Critically high 0.76-1.46 [facility] Comment on above: Performed By: #### T SH, FT3 #### [facility] [address] [address] [address] Herve Machado TSHon 10-25-2021 TSH 1.949 uIU/mL Normal 0.358-3.740 [facility] Comment on above: Performed By: #### T SH, FT3 #### [facility] [address] [address] [address] Herve Machado FREE T4on 09-28-2021 Free T4 [Mass/Vol] 1.50 ng/dL Critically high 0.76-1.46 [facility] Comment on above: Performed By: #### T SH, FT3 #### [facility] [address] [place] [address] Dr. Herve Machado LIPID PROFILEon 09-28-2021 CHOL-HDL RATIO NORM SEE BELOW Normal [facility] Comment on above: Result Comment: 3.3 - 4.4 LOW RISK 4.4 - 7.1 AVERAGE RISK 7.1 - 11.0 MODERATE RISK >11.0 HIGH RISK Performed By: #### L IPID, TSH #### [facility] [address] [place] [address] Dr. Herve Machado Cholesterol [Mass/Vol] 223 mg/dL Critically high <=200 [facility] Comment on above: Performed By: #### L IPID, TSH #### [facility] [address] [place] [address] Dr. Herve Machado Cholesterol in HDL [Mass/Vol] 53 mg/dL Normal 40-60 [facility] Comment on above: Performed By: #### L IPID, TSH #### [facility] [address] [place] [address] Dr. Herve Machado Cholesterol in LDL [Mass/Vol] 152.2 mg/dL Normal [facility] Comment on above: Performed By: #### L IPID, TSH #### [facility] [address] [address] [address] Herve Machado Cholesterol.total/Cholest rivas in HDL [Mass ratio] 4.2 {ratio} Normal [facility] Comment on above: Performed By: #### L IPID, TSH #### [facility] [address] [address] [address] Herve Machado HDL NORMAL > or = 60 mg/dl - LOW CARDIOVASCULAR RISK <40 mg/dl - HIGH CARDIOVASCULAR RISK Normal [facility] Comment on above: Performed By: #### L IPID, TSH #### [facility] [address] [address] [address] Herve Machado LDL CALC NORMAL SEE BELOW Normal [facility] Comment on above: Result Comment: <100 mg/dl OPTIMAL 100 - 129 mg/dl NEAR OR ABOVE OPTIMAL 130 - 159 mg/dl BORDERLINE HIGH 160 - 189 mg/dl HIGH >190 mg/dl VERY HIGH Performed By: #### L IPID, TSH #### [facility] [address] [address] [address] Herve Machado Triglyceride [Mass/Vol] 89 mg/dL Normal <=150 [facility] Comment on above: Performed By: #### L IPID, TSH #### [facility] [address] [address] [address] Herve Machado VLDL CALC 17.8 mg/dL Normal [facility] Comment on above: Performed By: #### L IPID, TSH #### [facility] [address] [address] [address] Herve Mahcado TSHon 09-28-2021 TSH 1.423 uIU/mL Normal 0.358-3.740 [facility] Comment on above: Performed By: #### T SH, FT3 #### [facility] [address] [place] [address] Dr. Herve Machado TSH RANGE SEE BELOW Normal [facility] Comment on above: Result Comment: <0.3 4 UIU/ml HYPERTHYROID 0.34-5.60 UIU/ml EUTHYROID >5.60 UIU/ml HYPOTHYROID Performed By: #### T SH, FT3 #### [facility] [address] [address] [address] Herve Machado Encounters Encounter Date Encounter Type Care Provider Facility Start: 07-07-2023 End: 07-07-2023 ambulatory STELLA AICHHOLZ Not Available Start: 06-05-2023 End: [facility] Start: 04-23-2023 End: 04-23-2023 ambulatory STELLA AICHHOLZ Not Available Start: 04-02-2023 End: 04-02-2023 ambulatory STELLA AICHHOLZ Not Available Start: 04-01-2023 End: 04-01-2023 ambulatory STELLA AICHHOLZ Not Available Start: 03-26-2023 End: 03-26-2023 ambulatory deanna [facility] Facility:[facility] Start: 03-26-2023 End: 03-26-2023 ambulatory Stella J Vanessaholz Work Phone: [facility] Work Phone: Start: 03-26-2023 End: 03-26-2023 Patient encounter procedure Stella Mendezholz Work Phone: [facility] [place] Work Phone: Start: 09-06-2022 ambulatory Faye Roche Facili ty:[facility] Start: 09-02-2022 End: 09-03-2022 ambulatory [employer] STELLA AICHHOLZ Facility:[facility] Start: 08-27-2022 End: 08-27-2022 Lab Drop off Dias [facility] Start: 08-27-2022 End: 08-28-2022 ambulatory Dias SALAM Facility[facility] Start: 08-12-2022 End: 08-13-2022 ambulatory [employer] STELLA AICHHOLZ Facility:[facility] Start: 08-02-2022 End: 08-03-2022 ambulatory Faye A Melchor Facility:[facility] Start: 07-15-2022 End: 07-16-2022 ambulatory ARLEEN RUSH AICLeydaHOLZ Facility:[facility] Start: 07-11-2022 ambulatory Fayeleyda BelleMelchor Facility :[facility] Start: 07-04-2022 End: 07-05-[address] LIZY MEADE Facility:[facility] Start: 04-04-2022 End: 04-05-2022 ambulatory [employer] STELLA AICLeydaHOLZ Facility:[facility] Start: 02-28-2022 End: 03-01-2022 ambulatory [employer] STELLA AICLeydaHOLZ Facility:[facility] Start: 11-27-2021 End: 11-28-2021 ambulatory [employer] STELLA AICLeydaHOLZ Facility:[facility] Start: 10-25-2021 End: 10-26-2021 ambulatory [employer] STELLA AICLeydaHOLZ Facility:[facility] Start: 09-28-2021 End: 09-29-2021 ambulatory [employer] STELLA AICLeydaHOLZ Facility:[facility] Start: 10-23-2017 End: 10-24-2017 Ambulatory DEFAULT PHYSICIAN Facility:[facility] Start: 10-13-2017 End: 10-14-2017 Ambulatory DEFAULT PHYSICIAN Facility:[facility] Immunizations Immunization Date Immunization Notes Care Provider Fa cility 04-23-2022 SARS-CoV-2 (COVID-19 ) [id number] [employer] [facility] 07-30-2021 SARS-CoV-2 mRNA (avhidlbcfhv-ttoe-xbrik se) vaccine [employer] [facility] 02-02-2021 influenza virus vaccine, unspecified formulation [employer] [facility] 02-02-2021 pneumococcal conjuga te vaccine, 13 valent [employer] [facility] 01-15-2021 SARS-CoV-2 (COVID-19 ) mRNA BNT-162b2 vax [employer] [facility] 07-11-2020 SARS-CoV-2 (COVID-19 ) mRNA BNT-162b2 vax Dias SALAM [facility] 06-19-2020 SARS-CoV-2 (COVID-19 ) mRNA BNT-162b2 vax Dias SALAM [facility] 01-22-2020 influenza virus vaccine, unspecified formulation Dias SALAM [facility] 04-26-2019 influenza virus vaccine, unspecified formulation Dias SALAM [facility] 02-06-2018 influenza virus vaccine, unspecified formulation Dias SALAM [facility] 01-30-2017 influenza virus vaccine, unspecified formulation Dias SALAM [facility] 01-30-2016 zoster vaccine, live Dias S ALAM [facility] 01-15-2016 influenza virus vaccine, unspecified formulation Dias SALAM [facility] 04-22-2012 influenza, whole Dias SALAM [facility] 02-06-2009 influenza, whole Dias SALAM [facility] Payers Date Payer Category Payer Self-pay [id number] 1960 Medicaid [id number] 1960 Medicare [id number] 1955 Unknown [id number] 1955 Unknown [id number] 2.16.84 0.1.656340.3.579.2.593 1955 Unknown [id number] 2.16.84 0.1.009649.3.579.2.593 1955 Unknown [id number] 2.16.84 0.1.834943.3.579.2.593 1955 Unknown [id number] 2.16.84 0.1.367763.3.579.2.593 1955 Unknown [id number] 2.16.84 0.1.361670.3.579.2.593 1955 Unknown [id number] 2.16.84 0.1.695596.3.579.2.593 1955 Unknown [id number] 2.16.84 0.1.930866.3.579.2.593 1955 Unknown [id number] 2.16.84 0.1.883157.3.579.2.593 1955 Unknown [id number] 2.16.8 40.1.834743.3.579.2.727 1955 Unknown [id number] 2.16.8 40.1.228937.3.579.2.727 1955 Unknown [id number] 2.16.8 40.1.117539.3.579.2.727 1955 Unknown [id number] 2.16.8 40.1.675757.3.579.2.727 1955 Unknown [id number] 2.16.8 40.1.271025.3.579.2.727 1955 Unknown [id number] 2.16.8 40.1.839171.3.579.2.1286 1955 Unknown [id number] 2.16.84 0.1.586902.3.579.2.1259 1955 Unknown [id number] 2.16.840 .1.909298.3.579.2.1259 1955 Unknown [id number] 2.16.840 .1.413743.3.579.2.1259 1955 Unknown [id number] 2.16.840 .1.791871.3.579.2.1259 Unknown Unknown [id number] 2.16.8 40.1.366381.3.579.2.531 Social History Date Type Detail Facility Start: 08-02-2022 Tobacco smoking status Never s moked tobacco (finding) [facility] Tobacco smoking status Never Flex [facility] Sex Assigned At Female [facility] Start: 1955 Sex Assigned At Female [facility] Evaluation + Plan note Note Date & Type Note Facility Evaluation + Plan note No data available for this section [facility] Evaluation note Note Date & Type Note Facility Evaluation note No assessment information availa [facility] Work Phone: Hospital Discharge instructions Note Date & Type Note Facility Hospital Discharge instructions No data available for this section [facility] Progress note Note Date & Type Note Facility Progress note No data available for this section [facility] Summary Purpose Family History No Family [...] section and content) DATE CREATED AUTHOR 10/24/2017 [facility] DATE CREATED AUTHOR AUTHOR'S ORGANIZ ATION 09/02/[address] [facility] DATE CREATED AUTHOR AUTHOR'S ORGANIZ ATION 09/04/[address] [facility] DATE CREATED AUTHOR AUTHOR'S ORGANIZ ATION 05/30/2023 [facility] DATE CREATED AUTHOR AUTHOR'S ORGANIZ ATION 06/07/2023 [facility] DATE CREATED AUTHOR AUTHOR'S ORGANIZ ATION 07/07/2023 [facility] EPIC Patient Care team informatio [...] BE BASED ON THE PRIMARY CLINICAL RECORDS. [facility] provides no warranty or guarantee of the accuracy or completeness of information in this document.
--- NOTE | 2023-07-13 19:08 | XR_ITS ---
[place] [id number] Patient Name: KEE MANUEL MRN: [id number] date: 1955 Sex: F Assigned Patient Location: ER Current Patient Location: ER Accession/Order Number: [id number] Exam Date: 07/13/2023 19:15 Report Date: 07/13/2023 20:05 At the request of: JOSE MUSA Procedure: XR elbow RT min 3V PROCEDURE: XR elbow RT min 3V, 07/13/2023 7:15 PM EDT CLINICAL INDICATIONS: Right elbow pain, right hand numbness, no known injury, onset of symptoms today COMPARISON: None TECHNIQUE: Right elbow, 3 views FINDINGS: The bones are normal in density. Moderate humeral ulnar osteoarthrosis is noted. Heterotopic calcification is seen adjacent to the radial head and ulnar aspect of the humeral ulnar joint level. Mild chondrocalcinosis considered. No acute osseous pathology. Small elbow effusion considered. XR/XR elbow RT min 3V IMPRESSION: 1. No acute osseous pathology 2. Heterotopic calcification and/or chondrocalcinosis 3. Humeral ulnar osteoarthrosis 4. Suspect elbow effusion Electronically authenticated by: MICAH RENAE Date: 07/13/2023 20:05
--- NOTE | 2023-07-13 19:09 | ED.UPPEXIN1 ---
HPI - Extremity Injury (Upper) General Chief Complaint: Extremity Injury, Upper Stated Complaint: R ELBOW PAIN/NUMBNESS Time Seen by Provider: 07/13/23 18:42 Source: patient Mode of arrival: walk-in Limitations: no limitations History of Present Illness HPI narrative: Patient is a 68-year-old female presents to the ER with complaints of right elbow pain. Patient states she awoke with symptoms this morning, took 1 [place] prior to arrival, leftover prescription from January. Patient states she did not have fall injury or recent fever. She reports carrying a bunch of CDs yesterday from the library but denies injury. Patient notes significant pain at the elbow with range of motion and some numbness and tingling that started in her hand. She notes the pain does radiate sometimes from the elbow up to her shoulder. Pain is significantly worsened with range of motion of the elbow joint. No evidence of bruising, patient reports hemoglobin A1c of 6.5, does not take insulin products. ( ozempic Inj) Pt is right handed. MD complaint: injury to: Reports right (denies trauma, denies history of auto-immune disease) and elbow Other Extremity Injury: Right: elbow Hand dominance: right Place: Reports home Severity: severe Relieving factors: Reports none Exacerbating factors: Reports movement of extremity Related Data Home Medications ?Medication ?Instructions ?Recorded ?Confirmed alendronate 35 mg tablet 35 mg PO .WEEKLY 07/13/23 07/13/23 aspirin 81 mg tablet,delayed 81 mg PO DAILY 07/13/23 07/13/23 release (Adult Aspirin Regimen) atorvastatin 80 mg tablet 80 mg PO DAILY 07/13/23 07/13/23 cetirizine 10 mg tablet 10 mg PO DAILY 07/13/23 07/13/23 cholecalciferol (vitamin D3) 50 10,000 unit PO .TWICE WEEKLY 07/13/23 07/13/23 mcg (2,000 unit) tablet (Vitamin D3) duloxetine 30 mg capsule,delayed 30 mg PO DAILY 07/13/23 07/13/23 release hydrocodone 5 mg-acetaminophen 325 1 tab PO Q8H PRN pain 07/13/23 07/13/23 mg tablet levothyroxine 112 mcg tablet 112 mcg PO DAILY 07/13/23 07/13/23 lisinopril 10 mg tablet 10 mg PO DAILY 07/13/23 07/13/23 magnesium oxide 400 mg (241.3 mg 400 mg PO DAILY 07/13/23 07/13/23 magnesium) tablet metformin 750 mg tablet,extended 750 mg PO BID 07/13/23 07/13/23 release 24 hr omeprazole 20 mg capsule,delayed 20 mg PO DAILY PRN dyspepsia 07/13/23 07/13/23 release pioglitazone 15 mg tablet 15 mg PO DAILY 07/13/23 07/13/23 semaglutide 0.25 mg or 0.5 mg (2 0.25 mg subcut .WEEKLY 07/13/23 07/13/23 mg/3 mL) subcutaneous pen injector (Ozempic) triamcinolone acetonide 55 mcg 2 spray intranasal DAILY 07/13/23 07/13/23 nasal spray aerosol Previous Rx's ?Medication ?Instructions ?Recorded prednisone 20 mg tablet 40 mg (2 x 20 mg) PO ONCE 5 days 07/13/23 #10 tabs Allergies Allergy/AdvReac Type Severity Reaction Status Date / Time Penicillins Allergy Intermediate Verified 07/13/23 18:43 Review of Systems ROS Constitutional Denies: fever, chills or change in weight Eyes Denies: change in vision Ears, nose, mouth, and throat Denies: throat pain or neck pain Cardiovascular Denies: chest pain or palpitations Respiratory Denies: shortness of breath or cough Gastrointestinal Denies: abdominal pain, nausea or vomiting Musculoskeletal Reports: extremity pain and joint pain (right elbow); Denies: back pain, neck pain or extremity swelling Integumentary/Breast Denies: rash Neurological Reports: numbness in extremities (right hand, glove like. ); Denies: headache Psychiatric Denies: anxiety Exam Narrative Exam Narrative: Nurse's notes and vital signs reviewed. Patient is not hypoxic. ( BP will be rechecked.. pt took norco prior to arrival, reports taking chronically rx medication, saw pcp on Friday with Normal BP General: The patient appears well and in no apparent distress. Guarding right elbow. Patient is resting on cart. Skin: Warm, dry, no pallor noted. no evidence of zoster like rash. Head: Normocephalic, atraumatic Eye: Normal conjunctiva Respiratory: Patient is in no distress Musculoskeletal: The Right elbow shows no obvious deformity. There was no appreciable swelling noted in shoulder, elbow or wrist joint.. compartments soft in Right upper extermity. . The patient had limited ROM due to pain. 10 degree extension and flexion 110 degrees + pain on end rom. ( severe) not forced pending xray + pain on supination past neutral. tolerates pronation full symmteric to left arm. The patient had tenderness noted To the radial head, olecranon, medial and lateral epicondyle.Positive Tinel in the cubital tunnel noted. No joint warmth or erythema. The patient had no tenderness in the anatomical snuff box. denies pain to wrist joint. Hook test demonstrates distal biceps intact. Painless prom of shoulder kept under 90 degress abduction/ flexion. Pulses are intact at brachial and radial 2+. There was no focal deficit. The patient has normal capillary refill to all distal digits. The patient has no evidence of cyanosis or mottling. The patient is able to flex and extend all digits without difficulty. Neurological: A&O x4, normal sensory, subjective n/t to fingers and thumb right hand diffuse. gross sensation intact . normal motor Psychiatric: Cooperative Constitutional Vital Signs, click to edit/add: Last Vital Signs Temp 98.1 F 07/13/23 18:39 Pulse 90 07/13/23 19:48 Resp 18 07/13/23 18:39 BP 140/90 07/13/23 19:48 Pulse Ox 99 07/13/23 19:48 O2 Del Method Room Air 07/13/23 18:39 Course Vital Signs Vital signs: Vital Signs Temperature 98.1 F 07/13/23 18:39 Pulse Rate 120 H 07/13/23 18:39 Respiratory Rate 18 07/13/23 18:39 Blood Pressure 179/85 H 07/13/23 18:39 Pulse Oximetry 100 07/13/23 18:39 Oxygen Delivery Method Room Air 07/13/23 18:39 Temperature 98.1 F 07/13/23 18:39 Pulse Rate 90 07/13/23 19:48 Respiratory Rate 18 07/13/23 18:39 Blood Pressure 140/90 07/13/23 19:48 Pulse Oximetry 99 07/13/23 19:48 Oxygen Delivery Method Room Air 07/13/23 18:39 MDM - Extremity Injury (Upper) MDM Narrative Medical decision making narrative: Onset pain and limited rom after carrying heavy bag of CD yesterday, did not appreciate any pain yesterday.. pt took norco from Jan. prior to arrival. Xray preformed of elbow joint. denies chest pain or sob.. pt appears related to elbow joint without clinical finding for infection. pt given toradol IM and prednisone. ( risk and benefits discussed with DM)- no prior history of auto-immune disease. Patient does have a thyroid condition, has been told to avoid any calcium products, we discussed x-ray at bedside pending radiology study concerning for chondrocalcinosis. Possibly relating to her atraumatic elbow effusion. Patient placed in a sling, neurovascularly intact, recommend ice packs, risks and benefits of oral steroid discussed and patient already noting improvement from initial medication given. She is agreeable to follow-up with orthopedics for reevaluation and will be given appointment for tomorrow at 10 AM. Patient thankful. - pt may remove sling after 1-2 days if feeling better ( pending ortho direction) no lifting with right arm. The patient is to followup withDr. Medina tomorrow. 10 am. primary care physician in next 2-3 days or to return to the emergency department should any of the signs or symptoms worsen or new symptoms develop. Patient had questions answered. The patient agrees with the following Diagnosis and Treatment plan and the patient will be discharged home. Imaging Data elbow right 3 view: Radiologist's impression: ITS Impressions Elbow X-Ray 07/13/23 19:08 IMPRESSION: 1. No acute osseous pathology 2. Heterotopic calcification and/or chondrocalcinosis 3. Humeral ulnar osteoarthrosis 4. Suspect elbow effusion Electronically authenticated by: MICAH RENAE Date: 07/13/2023 20:05 Discharge Plan Discharge Stand Alone Forms: Portal Instructions Chief Complaint: Extremity Injury, Upper Clinical Impression: Effusion of elbow joint, right Patient Disposition: Home, Self-Care Time of Disposition Decision: 20:28 Condition: Good Prescriptions / Home Meds: New prednisone 20 mg tablet 40 mg PO ONCE 5 Days Qty: 10 0RF No Action duloxetine 30 mg capsule,delayed release(DR/EC) 30 mg PO DAILY alendronate 35 mg tablet 35 mg PO .WEEKLY lisinopril 10 mg tablet 10 mg PO DAILY metformin 750 mg tablet extended release 24 hr 750 mg PO BID atorvastatin 80 mg tablet 80 mg PO DAILY cetirizine 10 mg tablet 10 mg PO DAILY hydrocodone-acetaminophen 5-325 mg tablet 1 tab PO Q8H PRN (Reason: pain) magnesium oxide 400 mg (241.3 mg magnesium) tablet 400 mg PO DAILY pioglitazone 15 mg tablet 15 mg PO DAILY Ozempic 0.25 mg or 0.5 mg (2 mg/3 mL) pen injector 0.25 mg SUBCUT .WEEKLY aspirin [Adult Aspirin Regimen] 81 mg tablet,delayed release (DR/EC) 81 mg PO DAILY triamcinolone acetonide 55 mcg aerosol,spray 2 spray INTRANASAL DAILY levothyroxine 112 mcg tablet 112 mcg PO DAILY cholecalciferol (vitamin D3) [Vitamin D3] 50 mcg (2,000 unit) tablet 10,000 unit PO .TWICE WEEKLY omeprazole 20 mg capsule,delayed release(DR/EC) 20 mg PO DAILY PRN (Reason: dyspepsia) Print Language: [place] Instructions: Swollen Joint (ED) Additional Instructions: Suspect pseudogout, avoid additional calcium supplements, follow-up tomorrow with orthopedics for reevaluation. Referrals: Stella Nieto NP [Primary Care Provider] - 1 week Darrick Medina MD [Physician] - 07/14/23 10:00 am
[2023-07-13] MEDS: PREDNISONE 20 MG TABLET 40 MG PO (19:33)
[2023-07-13] MEDS: KETOROLAC TROMETHAMINE 30 MG/ML VIAL IM (19:33)
[2023-07-13 19:48] VITALS: BP 140/90; PULSE 90; O2SAT 99
== END 2023-07-13 20:35 | disposition home or self-care (01) ==
PROVIDERS: Emergency Provider Emergency Medicine; PCP Nurse Practitioner
DX: M25.421 Effusion, right elbow (principal); E07.9 Disorder of thyroid, unspecified; Z79.82 Long term (current) use of aspirin; Z79.899 Other long term (current) drug therapy; Z79.890 Hormone replacement therapy; Z79.84 Long term (current) use of oral hypoglycemic drugs
CPT/HCPCS: 73080; 96372; 99284

== ENCOUNTER 2023-08-14 08:33 | Outpatient (OUT) | payer MEDICARE, MEDICAID, SELFPAY ==
--- OUTSIDE RECORDS SUMMARY | 2023-08-14 08:52 | XMS_ITS | CCD ---
Author Organization [facility] Care Team Providers Care Technology Lead Name Role Phone PHYSICIAN, DEFAULT Unavailable Unavailable PHYSICIAN, DEFAULT Unavailable Unavailable PHYSICIAN, DEFAULT Unavailable Unavailable PHYSICIAN, DEFAULT Unavailable Unavailable AICHHOLZ, STELLA J Primary Care Physician [phone] AICHHOLZ, LUTE PACKER OR APPLIER STELLA Attending Unavailable AICHHOLZ, LUTE PACKER OR APPLIER STELLA Primary Care Unavailable AICHHOLZ, LUTE PACKER OR APPLIER STELLA Admitting Unavailable AICHHOLZ, LUTE PACKER OR APPLIER STELLA Consulting Unavailable AICHHOLZ, LUTE PACKER OR APPLIER STELLA Admitting Unavailable AICHHOLZ, LUTE PACKER OR APPLIER STELLA Attending Unavailable AICHHOLZ, LUTE PACKER OR APPLIER STELLA Primary Care Unavailable AICHHOLZ, LUTE PACKER OR APPLIER STELLA Consulting Unavailable DR GEORGINA HATCH Consulting Unavailable AICHHOLZ, LUTE PACKER OR APPLIER STELLA Attending Unavailable AICHHOLZ, LUTE PACKER OR APPLIER STELLA Primary Care Unavailable AICHHOLZ, LUTE PACKER OR APPLIER STELLA Admitting Unavailable AICHHOLZ, LUTE PACKER OR APPLIER STELLA Consulting Unavailable AICHHOLZ, LUTE PACKER OR APPLIER STELLA Attending Unavailable AICHHOLZ, LUTE PACKER OR APPLIER STELLA Primary Care Unavailable AICHHOLZ, LUTE PACKER OR APPLIER STELLA Referring Unavailable AICHHOLZ, LUTE PACKER OR APPLIER STELLA Admitting Unavailable AICHHOLZ, LUTE PACKER OR APPLIER STELLA Consulting Unavailable DR LIZY MEADE V Consulting Unavailable AICHHOLZ, LUTE PACKER OR APPLIER STELLA Primary Care Unavailable AICHHOLZ, LUTE PACKER OR APPLIER STELLA Attending Unavailable AICHHOLZ, LUTE PACKER OR APPLIER STELLA Admitting Unavailable AICHHOLZ, LUTE PACKER OR APPLIER STELLA Consulting Unavailable AICHHOLZ, LUTE PACKER OR APPLIER STELLA Consulting Unavailable AICHHOLZ, LUTE PACKER OR APPLIER STELLA Primary Care Unavailable AICHHOLZ, LUTE PACKER OR APPLIER STELLA Attending Unavailable AICHHOLZ, LUTE PACKER OR APPLIER STELLA Admitting Unavailable AICHHOLZ, LUTE PACKER OR APPLIER STELLA Consulting Unavailable AICHHOLZ, LUTE PACKER OR APPLIER SETLLA Primary Care Unavailable AICHHOLZ, LUTE PACKER OR APPLIER STELLA Attending Unavailable AICHHOLZ, LUTE PACKER OR APPLIER STELLA Admitting Unavailable AICHHOLZ, LUTE PACKER OR APPLIER STELLA Consulting Unavailable AICHHOLZ, LUTE PACKER OR APPLIER STELLA Admitting Unavailable AICHHOLZ, LUTE PACKER OR APPLIER STELLA Primary Care Unavailable AICHHOLZ, LUTE PACKER OR APPLIER STELLA Attending Unavailable AICHHOLZ, LUTE PACKER OR APPLIER STELLA Consulting Unavailable AICHHOLZ, LUTE PACKER OR APPLIER STELLA Primary Care Unavailable AICHHOLZ, LUTE PACKER OR APPLIER STELLA Attending Unavailable AICHHOLZ, LUTE PACKER OR APPLIER STELLA Admitting Unavailable Melchor, Faye A Attending Unavailable Melchor, Faye A Attending Unavailable SALAM, Dias Referring Unavailable SALAM, Dias Attending Unavailable SALAM, Dias Attending Unavailable SALAM, Dias Admitting Unavailable Vanessasachin Stella J Primary Care Provider MD Jean Quick Attending Provider [phone] Jean Quick Attending Unavailable Jean Quick Admitting Unavailable Stella Nieto Primary Care Unavailable JEAN QUICK Referring Unavailable ANAKrystaSACHIN, STELLA Plaza Primary Care Unavailable LAUREL, STELLA Attending Unavailable AICHHOLKassandra, STELLA Attending Unavailable ANAHHOLKassandra, STELLA Attending Unavailable Allergies Allergy Classification Reported Allergen(s) Allergy Type Date of Onset Reaction(s) Facility (4 sources) Penicillins; Translations: [penicillins] Drug allergy 09-18-2013 unknown [facility] Medications Current Medications Medication Drug Class(es) Dates Sig (Normalized) Sig (Original) alendronic acid 35 mg oral tablet (1 source) Bisphosphonate Start: 03-24-2017 alendronate 35 mg oral tablet 35 mg = 1 tab(s), Oral, Refills(s) 0, Other (see comment) Start Date: 03/24/17 Status: Ordered {1 (Ascorbic Acid 7540 MG / POLYETHYLENE GLYCOL 3350 98023 MG / Potassium Chloride 1200 MG / Sodium Ascorbate 64152 MG / Sodium Chloride 3200 MG Powder for Oral Solution) / 1 (POLYETHYLENE GLYCOL 3350 996167 MG / Potassium Chloride 1000 MG / [...] or systems; Translations: [FAM HX MALIG NEOPLASM OTH ORGN/SYS] Onset: 07-12-2022 Episodic Thyroid disorders (5 sources) Hypothyroidism, unspecified; Translations: [HYPOTHYROIDISM UNSPECIFIED] Onset: 10-02-2021 Chronic Urinary tract infections (4 sources) Urinary tract infection, site not specified; Translations: [UTI SITE NOT SPECIFIED] Onset: 08-12-2022 Episodic Results Test Name Value Interpretation Reference Range Facility CALCIUMon 06-05-2023 Calcium [Mass/Vol] 10.3 mg/dL Normal 8.5-10.5 [facility] Comment on above: Performed By: #### 1 7861-6, 56991-5, 2730-8, 19288-1 #### [facility] ([id number]) [address], [address] [place] [address] MAGNESIUMon 06-05-2023 Magnesium [Mass/Vol] 1.7 mg/dL Low 1.8-2.6 [facility] Comment on above: Performed By: #### 1 7861-6, 41344-0, 2730-8, 41645-4 #### [facility] ([id number]) [address] [place] [address] Parathyrin.intact [Mass/Vol] on 06-05-2023 PTH INTACT 71 pg/mL Normal 12-88 [facility] Comment on above: Performed By: #### 1 7861-6, 02457-6, 2730-8, 53113-9 #### [facility] ([id number]) [address] [place] [address] RENAL PANELon 06-05-2023 Albumin [Mass/Vol] 4.3 g/dL Normal 3.2-5.3 [facility] Comment on above: Performed By: #### R ENAL #### [facility] ([id number]) [address] [place] [address] Anion gap [Moles/Vol] 8 mmol/L Normal - [facility] Comment on above: Performed By: #### R ENAL #### [facility] ([id number]) [address], [address] [place] [address] Calcium [Mass/Vol] 10.6 mg/dL High 8.5-10.5 [facility] Comment on above: Performed By: #### R ENAL #### [facility] ([id number]) [address] [place] [address] Chloride [Moles/Vol] 98 mmol/L Normal 98-109 [facility] Comment on above: Performed By: #### R ENAL #### [facility] ([id number]) [address] [place] [address] CO2 [Moles/Vol] 31 mmol/L Normal 22-32 [facility] Comment on above: Performed By: #### R ENAL #### [facility] ([id number]) [address] [place] [address] Creatinine [Mass/Vol] 0.82 mg/dL Normal 0.40-1.[address] [facility] Comment on above: Result Comment: METH OD TRACEABLE TO IDMS STANDARD Performed By: #### R ENAL #### [facility] ([id number]) [address] [place] [address] GFR/1.73 sq M.predicted among non-blacks MDRD (S/P/Bld) [Vol rate/Area] 77 mL/min/{1.73_m2} Normal >59 [facility] Comment on above: Result Comment: Reported eGFR is based on the CKD-EPI 2020 equation that does not use a race coefficient. Performed By: #### R ENAL #### [facility] ([id number]) [address] [place] [address] Glucose [Mass/Vol] 156 mg/dL High 65-99 [facility] Comment on above: Performed By: #### R ENAL #### [facility] ([id number]) [address] [place] [address] Phosphate [Mass/Vol] 3.2 mg/dL Normal 2.4-4.9 [facility] Comment on above: Performed By: #### R ENAL #### [facility] ([id number]) [address] [place] [address] Potassium [Moles/Vol] 4.2 mmol/L Normal 3.5-5.[address] [facility] Comment on above: Performed By: #### R ENAL #### [facility] ([id number]) [address] [place] [address] Sodium [Moles/Vol] 137 mmol/L Normal 134-146 [facility] Comment on above: Performed By: #### R ENAL #### [facility] ([id number]) [address] [place] [address] Urea nitrogen [Mass/Vol] 11 mg/dL Normal 5-27 [facility] Comment on above: Performed By: #### R ENAL #### [facility] ([id number]) [address] [place] [address] Vitamin D+Metabolites [Mass/ Vol]on 06-05-2023 VITAMIN D 25 HYD TOT 36.7 ng/mL Normal 30-100 [facility] Comment on above: Result Comment: Vitamin D status 25 [place] Vitamin D Deficiency <20 ng/mL Insufficiency 20-29 ng/mL Sufficiency 30-100 ng/mL Toxicity >100 ng/mL NOTE: A pediatric reference range has not been established by the technical sales director of this kit. The [place] [employer] recommends a Vitamin D level of = or >20ng/mL in infants and children. Performed By: #### 1 7861-6, 42625-9, 2731-8, 36096-0 #### [facility] ([id number]) [address] [place] [address] Albumin [Mass/volume] in Ser um or Plasma by Bromocresol green (BCG) dye binding methoOrdered By: Jean Quick on 03-26-2023 Albumin BCG dye [Mass/Vol] 4.3 g/dL 3.5-5.7 [facility] Calcium [Mass/volume] in Ser um or PlasmaOrdered By: Jean Quick on 03-26-2023 Calcium [Mass/Vol] 10.5 mg/dL 8.6-10.3 [facility] Carbon dioxide, total [Moles /volume] in Serum or PlasmaOrdered By: Jean Quick on 03-26-2023 CO2 [Moles/Vol] 29.4 mmol/L 21.0-31.0 [facility] Chloride [Moles/volume] in S rosalind or PlasmaOrdered By: Jean Quick on 03-26-2023 Chloride [Moles/Vol] 104 mmol/L 98-107 [facility] Creatinine [Mass/volume] in Serum or PlasmaOrdered By: Jean Quick on 03-26-2023 Creatinine [Mass/Vol] 0.79 mg/dL 0.60-1.20 [facility] Glucose [Mass/volume] in Ser um or PlasmaOrdered By: Jean Quick on 03-26-2023 Glucose [Mass/Vol] 136 mg/dL 70-100 [facility] Comment on above: ADA recommended refe rence rangeRandom Glucose Reference Range is dependent on time and content of last meal. Glucose of more than 200 mg/dL in a nonstressed, ambulatory subject supports the diagnosis of Diabetes Mellitus. Magnesiumon 03-26-2023 Magnesium [Mass/Vol] 1.6 mg/dL Low 1.9-2.7 [facility] Comment on above: Performed By: #### M G, PTH, [id number], RENAL #### [facility] [address] [place] [address] [facility] Magnesium [Mass/volume] in S rosalind or PlasmaOrdered By: Jean Quick on 03-26-2023 Magnesium [Mass/Vol] 1.6 mg/dL 1.9-2.7 [facility] No Panel InformationOrdered By: Jean Quick on 03-26-2023 Estimated GFR (CKD-EPI) > 60.0 mL/Min [facility] Creatinine Clearance (Chem N/A [facility] Parathyrin.intact [Mass/volu me] in Serum or PlasmaOrdered By: Jean Quick on 03-26-2023 Parathyrin.intact [Mass/Vol] 105.1 pg/mL [facility] Parathyroid Hormone Intacton 03-26-2023 Parathyroid Hormone Intact 105.1 pg/mL High [facility] Comment on above: Result Comment: PERF ORMED BY: [facility] [address] [id number] PATHOLOGIST [employer] PROJECT MANAGER EZEQUIEL FIGUEREDO M.D. Performed By: #### M G, PTH, [id number], RENAL #### [facility] [address] [place] [address] [facility] Phosphate [Mass/volume] in S rosalind or PlasmaOrdered By: Jean Quick on 03-26-2023 Phosphate [Mass/Vol] 3.1 mg/dL 2.5-4.5 [facility] Potassium [Moles/volume] in Serum or PlasmaOrdered By: Jean Quick on 03-26-2023 Potassium [Moles/Vol] 4.8 mmol/L 3.5-5.1 [facility] Renal Function Panelon 03-26 Albumin [Mass/Vol] 4.3 g/dL Normal 3.5-5.7 [facility] Comment on above: Performed By: #### M G, PTH, [id number], RENAL #### [facility] [address] [place] [address] [place] Anion gap [Moles/Vol] 11.4 mmol/L Normal 6.0-15.0 [facility] Comment on above: Performed By: #### M G, PTH, [id number], RENAL #### [facility] [address] [place] [address] [facility] Calcium [Mass/Vol] 10.5 mg/dL High 8.6-10.3 [facility] Comment on above: Performed By: #### M G, PTH, [id number], RENAL #### [facility] [address] [place] [address] [place] Chloride [Moles/Vol] 104 mmol/L Normal 98-107 [facility] Comment on above: Performed By: #### M G, PTH, [id number], RENAL #### [place] [address] [place] CO2 [Moles/Vol] 29.4 mmol/L Normal 21.0-31.0 [facility] Comment on above: Performed By: #### M G, PTH, [id number], RENAL #### [address] Creatinine [Mass/Vol] 0.79 mg/dL Normal 0.60-1.20 [facility] Comment on above: Performed By: #### M G, PTH, [id number], RENAL #### [place] [address] [place] GFR/1.73 sq M.predicted MDRD (S/P/Bld) [Vol rate/Area] mL/min/{1.73_m2} Normal [facility] Comment on above: Performed By: #### M G, PTH, [id number], RENAL #### [address] Glucose [Mass/Vol] 136 mg/dL High 70-100 [facility] Comment on above: Result Comment: [facility] Glucose Reference Range is dependent on time and content of last meal. Glucose of more than 200 mg/dL in a nonstressed, ambulatory subject supports the diagnosis of Diabetes Mellitus. ADA recommended reference range Performed By: #### M G, PTH, [id number], RENAL #### [facility] [address] [place] [address] [place] Phosphate [Mass/Vol] 3.1 mg/dL Normal 2.5-4.5 [facility] Comment on above: Performed By: #### M G, PTH, [id number], RENAL #### [facility] [address] [place] [id number] [facility] Potassium [Moles/Vol] 4.8 mmol/L Normal 3.5-5.1 [facility] Comment on above: Performed By: #### M G, PTH, [id number], RENAL #### [facility] [address] [place] [id number] [facility] Sodium [Moles/Vol] 140 mmol/L Normal 136-145 [facility] Comment on above: Performed By: #### M G, PTH, [id number], RENAL #### [facility] [address] Urea nitrogen [Mass/Vol] 8 mg/dL Normal 7- [facility] Comment on above: Performed By: #### M G, PTH, [id number], RENAL #### [facility] [address] [place] [address] Serum or plasma anion gap de terminationOrdered By: Jean Quick on 03-26-2023 Anion gap [Moles/Vol] 11.4 mmol/L 6.0-15.0 [facility] Sodium [Moles/volume] in Ser um or PlasmaOrdered By: Jean Quick on 03-26-2023 Sodium [Moles/Vol] 140 mmol/L 136-145 [facility] Urea nitrogen [Mass/volume] in Serum or PlasmaOrdered By: Jean Quick on 03-26-2023 Urea nitrogen [Mass/Vol] 8 mg/dL 7- [facility] Vitamin D 25 Hydroxy Totalon 03-26-2023 Vitamin D 25 Hydroxy Total 38.1 ng/mL Normal 30-100 [facility] Comment on above: Result Comment: JUAN PABLO MIN D STATUS 25([place])VITAMIN D RANGE (ng/mL) Deficient <20 Insufficient 20 to <30 Sufficient 30 to 100 Reference: Verito MF,Magali GRIJALVA, Yumiko SCHWARZ, et al. Evaluation,treatment, and prevention of vitamin D deficiency; an Endocrine Society clinical practice guideline. JCEM. 2010; 96(7):1911-30. PERFORMED BY: [facility] [address] [id number] PATHOLOGIST [employer] PRO[employer] MANAGER EZEQUIEL FIGUEREDO M.D. Performed By: #### M G, PTH, [id number], RENAL #### [address] Vitamin D+Metabolites [Mass/ volume] in Serum or PlasmaOrdered By: Jean Quick on 03-26-2023 Vitamin D+Metabolites [Mass/Vol] 38.1 ng/mL 30-100 [facility] Comment on above: VITAMIN D STATUS 25( [place])VITAMIN D RANGE (ng/mL) Deficient <20 Insufficient 20 to <30Sufficient 30 to 100Reference: Verito MF,Magali GRIJALVA, Yumiko SCHWARZ, et al. Evaluation,treatment, and prevention of vitamin D deficiency; an Endocrine Society clinical practice guideline. JCEM. 2010; 96(7):1911-30. Reminderson 09-03-2022 Reminders --- From: [facility] To: [facility] - Reminders/Recalls; Sent: 09/03/2022 18:05:18 EDT Show up: 07/28/2029 18:05:00 EDT Subject: Ambulatory Reminder Due Date/Time: 08/27/2029 18:05:00 EDT Reminder/Recall Repeat colonoscopy in 7 years(2029) due to tubular adenoma Normal [facility] XR DEXA BONE DENSITYon 09-02 XR [...] by: GEORGINA HATCH Date: 2022-09-02 13:17 Normal [facility] Outside Colonoscopyon 2022 Outside Colonoscopy [id number]#[id number]:127 Normal [facility] Physician Orderon 08-27-2022 Physician Order [id number]#[id number]:127 Normal [facility] CULTURE URINEon 08-12-2022 CULTURE URINE Culture Observations: NO GROWTH. Normal [facility] Comment on above: Performed By: #### T SH, FT3 #### [facility] [address] [place] [address] Dr. Herve Machado UA RANDOM W/MICROSCOPICon BACTERIA NONE SEEN Normal NONE SEEN [facility] Comment on above: Performed By: #### T SH, FT3 #### [facility] [address] [place] [address] Dr. Herve Machado Bilirubin Ql (U) Negative Normal NEGATIVE [facility] Comment on above: Performed By: #### T SH, FT3 #### [facility] [address] [place] [address] Dr. Herve Machado CAST NONE SEEN Normal NONE SEEN [facility] Comment on above: Performed By: #### T SH, FT3 #### [facility] [address] [place] [address] Dr. Herve Machado Clarity (U) CLEAR Normal CLEAR [facility] Comment on above: Performed By: #### T SH, FT3 #### [facility] [address] [place] [address] Dr. Herve Machado Color (U) LT. YELLOW Normal YELLOW [facility] Comment on above: Performed By: #### T SH, FT3 #### [facility] [address] [place] [address] Dr. Herve Machado Crystals LM Nom (Urine sed) NONE SEEN Normal NONE SEEN [facility] Comment on above: Performed By: #### T SH, FT3 #### [facility] [address] [place] [address] Dr. Herve Machado Epithelial cells LM Ql (Urine sed) RARE Normal NONE SEEN /RARE [facility] Comment on above: Performed By: #### T SH, FT3 #### [facility] [address] [place] [address] Dr. Herve Machado Glucose Ql (U) 500 mg/dl Abnormal NEGATIVE [facility] Comment on above: Performed By: #### T SH, FT3 #### [facility] [address] [place] [address] Dr. Herve Machado Hemoglobin Ql (U) Negative Normal NEGATIVE [facility] Comment on above: Performed By: #### T SH, FT3 #### [facility] [address] [place] [address] Dr. Herve Machado Ketones Ql (U) Negative Normal NEGATIVE [facility] Comment on above: Performed By: #### T , FT3 #### [facility] [address] [place] [address] Dr. Herev Machado LEUKOCYTES Negative Normal NEGATIVE [facility] Comment on above: Performed By: #### T SH, FT3 #### [facility] [address] [place] [address] Dr. Herve Machado MUCOUS NONE SEEN Normal NONE SEEN [facility] Comment on above: Performed By: #### T SH, FT3 #### [facility] [address] [place] [address] Dr. Herve Machado Nitrite Ql (U) Negative Normal NEGATIVE [facility] Comment on above: Performed By: #### T SH, FT3 #### [facility] [address] [place] [address] Dr. Herve Machado pH (U) 5.0 [pH] Normal 5-9 [facility] Comment on above: Performed By: #### T SH, FT3 #### [facility] [address] [place] [address] Dr. Herve Machado RBC 0-2 Normal 0-2 [facility] Comment on above: Performed By: #### T SH, FT3 #### [facility] [address] [address] [address] Herve Machado SPEC GRAVITY 1.020 Normal 1.005-<=1.025 [facility] Comment on above: Performed By: #### T SH, FT3 #### [facility] [address] [address] [address] Herve Machado UA PROTEIN Negative Normal NEGATIVE/ TRACE [facility] Comment on above: Performed By: #### T SH, FT3 #### [facility] [address] [address] [address] Herve Machado Urobilinogen Qn (U) 0.2 {Connie'U}/dL Normal 0.2 - 1. 0 [facility] Comment on above: Performed By: #### T SH, FT3 #### [facility] [address] [address] [address] Herve Machado WBC NONE SEEN Normal NONE SEEN [facility] Comment on above: Performed By: #### T SH, FT3 #### [facility] [address] [address] [address] Herve Machado Consent for Procedure/Surger yon 08-05-2022 Consent for Procedure/Surgery [id number]#[id number]:127 Normal [facility] Ambulatory Visit Summaryon 0 08-02-2022 Ambulatory [...] See instructions Prior to colonoscopy. Pickup at [facility] 1426 Unchanged alendronate (alendronate 35 mg oral tablet) [...] physician if questions or concerns Pharmacy Information [facility] 1429: [address] [place], [place] [id number] [phone] Allergies penicillins (unknown) Problems Ongoing - Any [...] including vitamins, herbs, eye drops, creams, and mrsh-ins-arldhva medicines. ? Any problems you or family [...] anything starting (more content not included)... Normal [facility] Gastroenterology Office/Clin ic Noteon 08-02-2022 Gastroenterology Office/Clinic Note Chief Complaint 5 year recall HPI Staff This is a 67 year old [...] in 2013 she had previous colonoscopy in [place], [place] that showed polyps- no record to [...] 1 EA, Refill(s) 0, Prior to colonoscopy., [facility]29, 139.7, cm, 08/02/22 10:20:00 [...] 08/02/2022 Immunizations Vaccine Date Status SARS-CoV-2 (COVID-19) mRNAMUL.[id number] 04/23/2022 Recorded SARSCoV2 mRNA(tociroer-tri s-sucros) vac 07/30/2021 [...] Recorded influenza, whole 02/06/2009 Recorded Normal [facility] Comment on above: Result Comment: Maycol diamondally Signed By: Faye Roche CNP.reyes\Date and Time [...] including vitamins, herbs, eye drops, creams, and izcf-igb-sbpjtbd medicines. ? Any problems you or family [...] air t (more content not included)... Normal [facility] Provider Letteron 07-16-2022 Provider Letter July 16, 2022 EMILY MNAUEL [address] [place] [phone] EMILY MANUEL 1955 Dear Emily, We have [...] your prompt attention to this matter. Sincerely, [facility]. Normal [facility] CBC AUTO DIFFon 07-15-2022 BASO # 0.0 103/ul Normal 0.0-0.1 [facility] Comment on above: Performed By: #### C BC #### [facility] [address] [place] [address] Dr. Herve Machado Basophils/100 WBC (Bld) 0.4 % Normal 0.2-2.0 [facility] Comment on above: Performed By: #### C BC #### [facility] [address] [place] [address] Dr. Herve Machado EO # 0.2 103/ul Normal 0.0-0.7 [facility] Comment on above: Performed By: #### C BC #### [facility] [address] [place] [address] Dr. Herve Machado Eosinophils/100 WBC (Bld) 2.7 % Normal 0.9-7.0 [facility] Comment on above: Performed By: #### C BC #### [facility] [address] [place] [address] Dr. Herve Machado Erythrocyte distribution width (RBC) [Ratio] 12.3 % Normal 11.0-15.0 [facility] Comment on above: Performed By: #### C BC #### [facility] [address] [place] [address] Dr. Herve Machado Hematocrit (Bld) [Volume fraction] 43.8 % Normal 36.0-48.0 [facility] Comment on above: Performed By: #### C BC #### [facility] [address] [place] [address] Dr. Herve Machado Hemoglobin (Bld) [Mass/Vol] 14.1 g/dL Normal 12.0-16.0 [facility] Comment on above: Performed By: #### C BC #### [facility] [address] [place] [address] Dr. Herve Machado IG # 0.01 10e3/ul Normal 0.00-0.03 [facility] Comment on above: Performed By: #### C BC #### [facility] [address] [place] [address] Dr. Herve Machado IG % 0.1 % Normal 0.0-0.5 [facility] Comment on above: Performed By: #### C BC #### [facility] [address] [place] [address] Dr. Herve Machado LYMPH # 1.7 103/ul Normal 1.2-3.8 [facility] Comment on above: Performed By: #### C BC #### [facility] [address] [place] [address] Dr. Herve Machado Lymphocytes/100 WBC (Bld) 23.6 % Normal 20.5-60.0 [facility] Comment on above: Performed By: #### C BC #### [facility] [address] [place] [address] Dr. Herve Machado MANUAL DIFF REQ NO Normal [facility] Comment on above: Performed By: #### C BC #### [facility] [address] [address] [address] Herve Machado MCH (RBC) [Entitic mass] 31.1 pg Normal 26.7-34.0 [facility] Comment on above: Performed By: #### C BC #### [facility] [address] [place] [address] Dr. Herve Machado MCHC (RBC) [Mass/Vol] 32.2 g/dL Normal 29.9-35.2 [facility] Comment on above: Performed By: #### C BC #### [facility] [address] [place] [address] Dr. Herve Machado MCV (RBC) [Entitic vol] 96.5 fL Normal 81.0-99.0 [facility] Comment on above: Performed By: #### C BC #### [facility] [address] [place] [address] Dr. Herve Machado MONO # 0.4 103/ul Normal 0.3-0.8 [facility] Comment on above: Performed By: #### C BC #### [facility] [address] [place] [address] Dr. Herve Machado Monocytes/100 WBC (Bld) 5.8 % Normal 1.7-12.0 [facility] Comment on above: Performed By: #### C BC #### [facility] [address] [place] [address] Dr. Herve Machado NEUT # 4.9 103/ul Normal 1.4-6.5 [facility] Comment on above: Performed By: #### C BC #### [facility] [address] [place] [address] Dr. Herve Machado Neutrophils/100 WBC (Bld) 67.4 % Normal 43.0-75.0 [facility] Comment on above: Performed By: #### C BC #### [facility] [address] [place] [address] Dr. Herve Machado Platelet mean volume (Bld) [Entitic vol] 9.9 fL Normal 9.5-13.5 [facility] Comment on above: Performed By: #### C BC #### [facility] [address] [place] [address] Dr. Herve Machado PLT 229 103/ul Normal 150-450 [facility] Comment on above: Performed By: #### C BC #### [facility] [address] [place] [address] Dr. Herve Machado RBC 4.54 106/ul Normal 4.20-5.40 [facility] Comment on above: Performed By: #### C BC #### [facility] [address] [place] [address] Dr. Herve Machado WBC 7.3 103/ul Normal 4.0-11.0 [facility] Comment on above: Performed By: #### C BC #### [facility] [address] [place] [address] Dr. Herve Machado GLYCOHEMOGLOBIN A1Con 2022 ADA RECOMMENDATION SEE BELOW Normal [facility] Comment on above: Result Comment: ADA RECOMMENDED LIMIT 4.0 - 6.0 ADA THERAPEUTIC TARGET < 7.0 ACTION SUGGESTED > 7.0 Performed By: #### T SH, FT3 #### [facility] [address] [place] [address] Dr. Herve Machado Glucose [Mass/Vol] 160 mg/dL Normal [facility] Comment on above: Performed By: #### T SH, FT3 #### [facility] [address] [place] [address] Dr. Herve Machado HbA1c (Bld) [Mass fraction] 7.2 % Critically high 4.5-6.2 [facility] Comment on above: Performed By: #### T SH, FT3 #### [facility] [address] [place] [address] Dr. Herve Machado LIPID PROFILEon 07-15-2022 CHOL-HDL RATIO NORM SEE BELOW Normal [facility] Comment on above: Result Comment: 3.3 - 4.4 LOW RISK 4.4 - 7.1 AVERAGE RISK 7.1 - 11.0 MODERATE RISK >11.0 HIGH RISK Performed By: #### T SH, FT3 #### [facility] [address] [address] [address] Herve Machado Cholesterol [Mass/Vol] 136 mg/dL Normal <=200 [facility] Comment on above: Performed By: #### T SH, FT3 #### [facility] [address] [address] [address] Herve Machado Cholesterol in HDL [Mass/Vol] 51 mg/dL Normal 40-60 [facility] Comment on above: Performed By: #### T SH, FT3 #### [facility] [address] [address] [address] Herve Machado Cholesterol in LDL [Mass/Vol] 68.6 mg/dL Normal [facility] Comment on above: Performed By: #### T SH, FT3 #### [facility] [address] [place] [address] Dr. Herve Machado Cholesterol.total/Cholest rivas in HDL [Mass ratio] 2.7 {ratio} Normal [facility] Comment on above: Performed By: #### T SH, FT3 #### [facility] [address] [address] [address] Herve Machado HDL NORMAL > or = 60 mg/dl - LOW CARDIOVASCULAR RISK <40 mg/dl - HIGH CARDIOVASCULAR RISK Normal [facility] Comment on above: Performed By: #### T SH, FT3 #### [facility] [address] [address] [address] Herve Machado LDL CALC NORMAL SEE BELOW Normal [facility] Comment on above: Result Comment: <100 mg/dl OPTIMAL 100 - 129 mg/dl NEAR OR ABOVE OPTIMAL 130 - 159 mg/dl BORDERLINE HIGH 160 - 189 mg/dl HIGH >190 mg/dl VERY HIGH Performed By: #### T SH, FT3 #### [facility] [address] [address] [address] Herve Machado Triglyceride [Mass/Vol] 82 mg/dL Normal <=150 [facility] Comment on above: Performed By: #### T SH, FT3 #### [facility] [address] [place] [address] Dr. Herve Machado VLDL CALC 16.4 mg/dL Normal [facility] Comment on above: Performed By: #### T ASIA, FT3 #### [facility] [address] [place] [address] Dr. Herve Machado MICROALBUMIN, RAND URon 06-20 mALB <1.3 Normal <=30.0 [facility] Comment on above: Performed By: #### T ASIA, FT3 #### [facility] [address] [place] [address] Dr. Herve Machado PROF 14(COMP METB)on 023 Albumin [Mass/Vol] 3.6 g/dL Normal 3.4-5.0 [facility] Comment on above: Performed By: #### T ASIA, FT3 #### [facility] [address] [place] [address] Dr. Herve Machado Albumin/Globulin [Mass ratio] 1.1 {ratio} Normal [facility] Comment on above: Performed By: #### T ASIA, FT3 #### [facility] [address] [place] [address] Dr. Herve Machado ALP [Catalytic activity/Vol] 64 U/L Normal 46-116 [facility] Comment on above: Performed By: #### T ASIA, FT3 #### [facility] [address] [place] [address] Dr. Herve Machado ALT [Catalytic activity/Vol] 21 U/L Normal 14-59 [facility] Comment on above: Performed By: #### T ASIA, FT3 #### [facility] [address] [place] [address] Dr. Herve Machado Anion gap [Moles/Vol] 11.2 mmol/L Normal [facility] Comment on above: Performed By: #### T SH, FT3 #### [facility] [address] [place] [address] Dr. Herve Machado AST [Catalytic activity/Vol] 18 U/L Normal 15-37 [facility] Comment on above: Performed By: #### T SH, FT3 #### [facility] [address] [place] [address] Dr. Herve Machado Bilirubin [Mass/Vol] 0.6 mg/dL Normal 0.2-1.0 [facility] Comment on above: Performed By: #### T SH, FT3 #### [facility] [address] [place] [address] Dr. Herve Machado Calcium [Mass/Vol] 10.2 mg/dL Critically high 8.5-10.1 [facility] Comment on above: Performed By: #### T , FT3 #### [facility] [address] [place] [address] Dr. Herve Machado Chloride [Moles/Vol] 107 mmol/L Normal 98-107 [facility] Comment on above: Performed By: #### T SH, FT3 #### [facility] [address] [place] [address] Dr. Herve Machado CO2 [Moles/Vol] 28.3 mmol/L Normal 21.0-32.0 [facility] Comment on above: Performed By: #### T , FT3 #### [facility] [address] [place] [address] Dr. Herve Machado Creatinine [Mass/Vol] 0.66 mg/dL Normal 0.55-1.02 [facility] Comment on above: Performed By: #### T , FT3 #### [facility] [address] [place] [address] Dr. Herve Machado EGFR-AF NEW ZEALANDER >60 Normal >=60 [facility] Comment on above: Performed By: #### T , FT3 #### [facility] [address] [place] [address] Dr. Herve Machado EGFR-NON AF NEW ZEALANDER >60 Normal >=60 [facility] Comment on above: Performed By: #### T , FT3 #### [facility] [address] [place] [address] Dr. Herve Machado Globulin (S) [Mass/Vol] 3.3 g/dL Normal [facility] Comment on above: Performed By: #### T , FT3 #### [facility] [address] [address] [address] Herve Machado Glucose [Mass/Vol] 154 mg/dL Critically high 74-106 [facility] Comment on above: Performed By: #### T SH, FT3 #### [facility] [address] [place] [address] Dr. Herve Machado Potassium [Moles/Vol] 4.5 mmol/L Normal 3.5-5.1 [facility] Comment on above: Performed By: #### T SH, FT3 #### [facility] [address] [place] [address] Dr. Herve Machado Protein [Mass/Vol] 6.9 g/dL Normal 6.4-8.2 [facility] Comment on above: Performed By: #### T SH, FT3 #### [facility] [address] [place] [address] Dr. Herve Machado Sodium [Moles/Vol] 142 mmol/L Normal 136-145 [facility] Comment on above: Performed By: #### T , FT3 #### [facility] [address] [place] [address] Dr. Herve Machado Urea nitrogen [Mass/Vol] 11.0 mg/dL Normal 7.0-18.0 [facility] Comment on above: Performed By: #### T , FT3 #### [facility] [address] [place] [address] Dr. Herve Machado Urea nitrogen/Creatinine [Mass ratio] 16.7 mg/mg Normal [facility] Comment on above: Performed By: #### T SH, FT3 #### [facility] [address] [place] [address] Dr. Herve Machado UA RANDOM W/MICROSCOPICon BACTERIA MODERATE Abnormal NONE SEEN [facility] Comment on above: Performed By: #### U AMIC #### [facility] [address] [place] [address] Dr. Herve Machado Bilirubin Ql (U) Negative Normal NEGATIVE [facility] Comment on above: Performed By: #### U AMIC #### [facility] [address] [address] [address] Herve Machado CAST NONE SEEN Normal NONE SEEN [facility] Comment on above: Performed By: #### U AMIC #### [facility] [address] [address] [address] Herve Machado Clarity (U) CLEAR Normal CLEAR [facility] Comment on above: Performed By: #### U AMIC #### [facility] [address] [address] [address] Herve Machado Color (U) LT. YELLOW Normal YELLOW [facility] Comment on above: Performed By: #### U AMIC #### [facility] [address] [address] [address] Herve Machado Crystals LM Nom (Urine sed) NONE SEEN Normal NONE SEEN [facility] Comment on above: Performed By: #### U AMIC #### [facility] [address] [place] [address] Dr. Herve Machado Epithelial cells LM Ql (Urine sed) FEW Abnormal NONE SEEN /RARE [facility] Comment on above: Performed By: #### U AMIC #### [facility] [address] [address] [address] Herve Machado Glucose Ql (U) Negative Normal NEGATIVE [facility] Comment on above: Performed By: #### U AMIC #### [facility] [address] [place] [address] Dr. Herve Machado Hemoglobin Ql (U) Negative Normal NEGATIVE [facility] Comment on above: Performed By: #### U AMIC #### [facility] [address] [place] [address] Dr. Herve Machado Ketones Ql (U) Negative Normal NEGATIVE [facility] Comment on above: Performed By: #### U AMIC #### [facility] [address] [address] [address] Herve Machado LEUKOCYTES Negative Normal NEGATIVE [facility] Comment on above: Performed By: #### U AMIC #### [facility] [address] [address] [address] Herve Machado MUCOUS NONE SEEN Normal NONE SEEN [facility] Comment on above: Performed By: #### U AMIC #### [facility] [address] [address] [address] Herve Machado Nitrite Ql (U) Positive Abnormal NEGATIVE [facility] Comment on above: Performed By: #### U AMIC #### [facility] [address] [place] [address] Dr. Herve Machado pH (U) 6.0 [pH] Normal 5-9 [facility] Comment on above: Performed By: #### U AMIC #### [facility] [address] [place] [address] Dr. Herve Machado RBC 0-2 Normal 0-2 [facility] Comment on above: Performed By: #### U AMIC #### [facility] [address] [place] [address] Dr. Herve Machado SPEC GRAVITY 1.010 Normal 1.005-<=1.025 [facility] Comment on above: Performed By: #### U AMIC #### [facility] [address] [place] [address] Dr. Herve Machado UA PROTEIN Negative Normal NEGATIVE/ TRACE [facility] Comment on above: Performed By: #### U AMIC #### [facility] [address] [place] [address] Dr. Herve Machado Urobilinogen Qn (U) 0.2 {Connie'U}/dL Normal 0.2 - 1. 0 [facility] Comment on above: Performed By: #### U AMIC #### [facility] [address] [place] [address] Dr. Herve Machado WBC 2-5 Abnormal NONE SEEN [facility] Comment on above: Performed By: #### U AMIC #### [facility] [address] [place] [address] Dr. Herve Machado Physician Referralon 023 Physician Referral [phone] [id number] Normal [facility] MG MAMM SCREEN 3D VEDA CADon 07-04-2022 MG MAMM SCREEN 3D VEDA CAD Patient: EMILY MANUEL Exam Date: 07/04/2022 : 1955 Gender:F Ordering : ARLEEN NIETO [employer] Admission #: [id number] Family : Order #: [id number] CLICK HERE TO VIEW EXAM RADIOLOGY REPORT [...] pancreatic cancer at age 64. LOCATION: [facility] BREAST COMPOSITION: Scattered areas fibroglandular density. [...] MD on 07/04/2022 at 10:24 Normal [facility] GLYCOHEMOGLOBIN A1Con 2021 ADA RECOMMENDATION SEE BELOW Normal [facility] Comment on above: Result Comment: ADA RECOMMENDED LIMIT 4.0 - 6.0 ADA THERAPEUTIC TARGET < 7.0 ACTION SUGGESTED > 7.0 Performed By: #### A 1C #### [facility] [address] [address] [address] Herve Machado Glucose [Mass/Vol] 189 mg/dL Normal [facility] Comment on above: Performed By: #### A 1C #### [facility] [address] [address] [address] Herve Machado HbA1c (Bld) [Mass fraction] 8.2 % Critically high 4.5-6.2 [facility] Comment on above: Performed By: #### A 1C #### [facility] [address] [place] [address] Dr. Herve Machado FREE T3on 02-28-2022 FREE T3 2.44 pg/mlL Normal 2.18-3.98 [facility] Comment on above: Performed By: #### T SH, FT3 #### [facility] [address] [place] [address] Dr. Herve Machado FREE T4on 02-28-2022 Free T4 [Mass/Vol] 1.48 ng/dL Critically high 0.76-1.46 [facility] Comment on above: Performed By: #### T SH, FT3 #### [facility] [address] [place] [address] Dr. Herve Machado TSHon 02-28-2022 TSH 1.115 uIU/mL Normal 0.358-3.740 [facility] Comment on above: Performed By: #### T SH, FT3 #### [facility] [address] [place] [address] Dr. Herve Machado FREE T3on 11-27-2021 FREE T3 2.54 pg/mlL Normal 2.18-3.98 [facility] Comment on above: Performed By: #### T SH, FT3 #### [facility] [address] [place] [address] Dr. Herve Machado FREE T4on 11-27-2021 Free T4 [Mass/Vol] 1.85 ng/dL Critically high 0.76-1.46 [facility] Comment on above: Performed By: #### T SH, FT3 #### [facility] [address] [place] [address] Dr. Herve Machado TSHon 11-27-2021 TSH 0.228 uIU/mL Critically low 0.358-3.740 [facility] Comment on above: Performed By: #### T SH, FT3 #### [facility] [address] [place] [address] Dr. Herve Machado FREE T3on 10-25-2021 FREE T3 2.50 pg/mlL Normal 2.18-3.98 [facility] Comment on above: Performed By: #### T SH, FT3 #### [facility] [address] [address] [address] Herve Machado FREE T4on 10-25-2021 Free T4 [Mass/Vol] 1.61 ng/dL Critically high 0.76-1.46 [facility] Comment on above: Performed By: #### T SH, FT3 #### [facility] [address] [place] [address] Dr. Herve Machado TSHon 10-25-2021 TSH 1.949 uIU/mL Normal 0.358-3.740 [facility] Comment on above: Performed By: #### T SH, FT3 #### [facility] [address] [place] [address] Dr. Herve Machado FREE T4on 09-28-2021 Free T4 [Mass/Vol] 1.50 ng/dL Critically high 0.76-1.46 [facility] Comment on above: Performed By: #### T SH, FT3 #### [facility] [address] [place] [address] Dr. Herve Machado LIPID PROFILEon 09-28-2021 CHOL-HDL RATIO NORM SEE BELOW Normal [facility] Comment on above: Result Comment: 3.3 - 4.4 LOW RISK 4.4 - 7.1 AVERAGE RISK 7.1 - 11.0 MODERATE RISK >11.0 HIGH RISK Performed By: #### L IPID, TSH #### [facility] [address] [place] [address] Dr. Herve Machado Cholesterol [Mass/Vol] 223 mg/dL Critically high <=200 [facility] Comment on above: Performed By: #### L IPID, TSH #### [facility] [address] [place] [address] Dr. Herve Machado Cholesterol in HDL [Mass/Vol] 53 mg/dL Normal 40-60 [facility] Comment on above: Performed By: #### L IPID, TSH #### [facility] [address] [place] [address] Dr. Herve Machado Cholesterol in LDL [Mass/Vol] 152.2 mg/dL Normal [facility] Comment on above: Performed By: #### L IPID, TSH #### [facility] [address] [address] [address] Herve Machado Cholesterol.total/Cholest rivas in HDL [Mass ratio] 4.2 {ratio} Normal [facility] Comment on above: Performed By: #### L IPID, TSH #### [facility] [address] [address] [address] Herve Machado HDL NORMAL > or = 60 mg/dl - LOW CARDIOVASCULAR RISK <40 mg/dl - HIGH CARDIOVASCULAR RISK Normal [facility] Comment on above: Performed By: #### L IPID, TSH #### [facility] [address] [place] [address] Dr. Herve Machado LDL CALC NORMAL SEE BELOW Normal [facility] Comment on above: Result Comment: <100 mg/dl OPTIMAL 100 - 129 mg/dl NEAR OR ABOVE OPTIMAL 130 - 159 mg/dl BORDERLINE HIGH 160 - 189 mg/dl HIGH >190 mg/dl VERY HIGH Performed By: #### L IPID, TSH #### [facility] [address] [address] [address] Herve Machado Triglyceride [Mass/Vol] 89 mg/dL Normal <=150 [facility] Comment on above: Performed By: #### L IPID, TSH #### [facility] [address] [address] [address] Herve Machado VLDL CALC 17.8 mg/dL Normal [facility] Comment on above: Performed By: #### L IPID, TSH #### [facility] [address] [address] [address] Herve Machado TSHon 09-28-2021 TSH 1.423 uIU/mL Normal 0.358-3.740 [facility] Comment on above: Performed By: #### T SH, FT3 #### [facility] [address] [address] [address] Herve Machado TSH RANGE SEE BELOW Normal [facility] Comment on above: Result Comment: <0.3 4 UIU/ml HYPERTHYROID 0.34-5.60 UIU/ml EUTHYROID >5.60 UIU/ml HYPOTHYROID Performed By: #### T , FT3 #### [facility] [address] [address] [address] Herve Machado Encounters Encounter Date Encounter Type Care Provider Facility Start: 07-22-2023 End: 07-22-2023 ambulatory STELLA AICHHOLZ Not Available Start: 07-07-2023 End: 07-07-2023 ambulatory STELLA AICHHOLZ Not Available Start: 06-05-2023 End: [facility] Start: 04-23-2023 End: 04-23-2023 ambulatory STELLA AICHHOLZ Not Available Start: 04-02-2023 End: 04-02-2023 ambulatory STELLA AICHHOLZ Not Available Start: 04-01-2023 End: 04-01-2023 ambulatory STELLA AICHHOLZ Not Available Start: 03-26-2023 End: 03-26-2023 ambulatory Jean Caldwellgh Facility:[facility] Start: 03-26-2023 End: 03-26-2023 ambulatory Stella J Aichholz Work Phone: [facility] Work Phone: Start: 03-26-2023 End: 03-26-2023 Patient encounter procedure Stella Aichholz Work Phone: [facility] [place] Work Phone: Start: 09-06-2022 ambulatory Faye Cortesi ty:[facility] Start: 09-02-2022 End: 09-03-2022 ambulatory [employer] STELLA AICHHOLZ Facility: Start: 08-27-2022 End: 08-27-[address] [facility] Start: 08-27-2022 End: 08-28-2022 ambulatory Dias SALAM Facility:[facility] [place] Start: 08-12-2022 End: 08-13-2022 ambulatory [employer] STELLA AICKrystaHOLZ Facility:[facility] Start: 08-02-2022 End: 08-03-2022 ambulatory Faye Roche Facility:[facility] Start: 07-15-2022 End: 07-16-2022 ambulatory ARELEN ANDERSONA AICKrystaHOLZ Facility:[facility] Start: 07-11-2022 ambulatory Faye Roche Facility :[facility] Start: 07-04-2022 End: 07-05-[address] LIZY MEADE Facility:[facility] Start: 04-04-2022 End: 04-05-2022 ambulatory ARLEEN ANDERSONA AICNUYRSZ Facility:[facility] Start: 02-28-2022 End: 03-01-2022 ambulatory [employer] STELLA AICKrystaHOLZ Facility:[facility] Start: 11-27-2021 End: 11-28-2021 ambulatory [employer] STELLA AICKrystaHOLZ Facility:[facility] Start: 10-25-2021 End: 10-26-2021 ambulatory [employer] STELLA AICKrystaHOLZ Facility:[facility] Start: 09-28-2021 End: 09-29-2021 ambulatory [employer] STELLA VANESSAHOLZ Facility:[facility] Start: 10-23-2017 End: 10-24-2017 Ambulatory DEFAULT PHYSICIAN Facility:[facility] Start: 10-13-2017 End: 10-14-2017 Ambulatory DEFAULT PHYSICIAN Facility:[facility] Immunizations Immunization Date Immunization Notes Care Provider Fa lynn 04-23-2022 SARS-CoV-2 (COVID-19 ) [id number] [employer] [facility] 07-30-2021 SARS-CoV-2 mRNA (epplhxhphud-nqeq-ulogw se) vaccine Dias [facility] 02-02-2021 influenza virus vaccine, unspecified formulation [employer] [facility] 02-02-2021 pneumococcal conjuga te vaccine, 13 valent [employer] [facility] 01-15-2021 SARS-CoV-2 (COVID-19 ) mRNA BNT-162b2 vax Dias SALAM [facility] 07-11-2020 SARS-CoV-2 (COVID-19 ) mRNA BNT-162b2 vax Dias SALAM [facility] 06-19-2020 SARS-CoV-2 (COVID-19 ) mRNA BNT-162b2 vax Dias SALAM [facility] 01-22-2020 influenza virus vaccine, unspecified formulation Dias SALAM [facility] 04-26-2019 influenza virus vaccine, unspecified formulation Dias SALAM [facility] 02-06-2018 influenza virus vaccine, unspecified formulation Dias SALAM [facility] 01-30-2017 influenza virus vaccine, unspecified formulation Dias SALAM [facility] 01-30-2016 zoster vaccine, live Dias S ALAM [facility] 01-15-2016 influenza virus vaccine, unspecified formulation Dias SALAM [facility] 04-22-2012 influenza, whole Dias SALAM [facility] 02-06-2009 influenza, whole Dias SALAM [facility] Payers Date Payer Category Payer Self-pay [id number] 1960 Medicaid [id number] 1960 Medicare [id number] 1955 Unknown [id number] 2.16.84 0.1.682506.3.579.2.593 1954 Unknown [id number] 2.16.84 0.1.823138.3.579.2.593 1954 Unknown [id number] 2.16.84 0.1.835300.3.579.2.593 1954 Unknown [id number] 2.16.84 0.1.497560.3.579.2.593 1954 Unknown [id number] 2.16.84 0.1.215374.3.579.2.593 1954 Unknown [id number] 2.16.84 0.1.777724.3.579.2.593 1954 Unknown [id number] 2.16.84 0.1.395028.3.579.2.593 1954 Unknown [id number] 2.16.84 0.1.252082.3.579.2.593 1954 Unknown [id number] 2.16.84 0.1.035567.3.579.2.593 1954 Unknown [id number] 2.16.8 40.1.567010.3.579.2.727 1954 Unknown [id number] 2.16.8 40.1.817131.3.579.2.727 1954 Unknown [id number] 2.16.8 40.1.177289.3.579.2.727 1954 Unknown [id number] 2.16.8 40.1.681588.3.579.2.727 1954 Unknown [id number] 2.16.8 40.1.429803.3.579.2.727 1954 Unknown [id number] 2.16.8 40.1.510145.3.579.2.1286 1954 Unknown [id number] 2.16.84 0.1.154902.3.579.2.1259 1954 Unknown [id number] 2.16.84 0.1.718040.3.579.2.1259 1954 Unknown [id number] 2.16.840 .1.692084.3.579.2.1259 1954 Unknown [id number] 2.16.840 .1.759272.3.579.2.1259 1954 Unknown [id number] 2.16.840 .1.667131.3.579.2.1259 Unknown Unknown [id number] 2.16.8 40.1.875875.3.579.2.531 Social History Date Type Detail Facility Start: 08-02-2022 Tobacco smoking status Never s moked tobacco (finding) [facility] Sex Assigned At Female [facility] Start: 1955 Sex Assigned At Female [facility] Evaluation + Plan note Note Date & Type Note Facility Evaluation + Plan note No data available for this section [facility] Evaluation note Note Date & Type Note Facility Evaluation note No assessment information availa [facility] Work Phone: Hospital Discharge instructions Note Date & Type Note Facility Hospital Discharge instructions No data available for this section [facility] Progress note Note Date & Type Note Facility Progress note No data available for this section [facility] Summary Purpose Family History No Family History [...] section and content) DATE CREATED AUTHOR 10/24/[address] [facility] DATE CREATED AUTHOR AUTHOR'S ORGANIZ ATION 09/02/2022 [facility] DATE CREATED AUTHOR AUTHOR'S ORGANIZ ATION 09/04/2022 [facility] DATE CREATED AUTHOR AUTHOR'S ORGANIZ ATION 05/30/2023 [facility] DATE CREATED AUTHOR AUTHOR'S ORGANIZ ATION 06/07/2023 [facility] DATE CREATED AUTHOR AUTHOR'S ORGANIZ ATION 07/23/2023 [facility] EPIC Patient Care team informatio n (unrecognized section and content) Team Status: Active Member Role Status Dates Stella Nieto Primary Care Provider Active Team Status: Inactive Member Role Status Dates Stella Nieto Primary Care Provider Active Jean Quick [...] BE BASED ON THE PRIMARY CLINICAL RECORDS. [employer] provides no warranty or guarantee of the accuracy or completeness of information in this document.
[2023-08-14 09:23] LABS: Creatinine Urine Random 97.23 mg/dL (20.00-300.00); Microalbum Creatinine Ratio Ur 13.3 mg/g (0.0-29.9); Microalbumin Urine Random <1.3 mg/dL (<=30.0)
[2023-08-14 09:27] LABS: Estimated Average Glucose 137 mg/dL; Glycohemoglobin A1C 6.4 % (4.5-6.2)
[2023-08-14 09:31] LABS: Chol HDL Ratio 3.4; Cholesterol 168 mg/dL (<=200); HDL Cholesterol 50 mg/dL (40-60); LDL Cholesterol Calculated 103.4 mg/dL; Triglycerides 73 mg/dL (<=150); VLDL CHOLESTEROL 14.6 mg/dL
[2023-08-14 09:48] LABS: Basophils Percent Auto 0.5 % (0.2-2.0); Eosinophils Absolute Auto 0.3 10^3/uL (0.0-0.7); Eosinophils Percent Auto 5.1 % (0.9-7.0); Hematocrit 41.7 % (36.0-48.0); Hemoglobin 13.1 g/dL (12.0-16.0); Immature Granulocytes Abs Auto 0.02 10^3/uL (0.00-0.03); Immature Granulocytes Pct Auto 0.3 % (0.0-0.5); Lymphocytes Absolute Auto 1.4 10^3/uL (1.2-3.8); Lymphocytes Percent Auto 22.7 % (20.5-60.0); Mean Corpuscular HGB Conc 31.4 g/dL (29.9-35.2); Mean Corpuscular Hemoglobin 30.3 pg (26.7-34.0); Mean Corpuscular Volume 96.5 fL (81.0-99.0); Mean Platelet Volume 9.8 fL (9.5-13.5); Monocytes Absolute Auto 0.4 10^3/uL (0.3-0.8); Monocytes Percent Auto 6.6 % (1.7-12.0); Neutrophils Percent Auto 64.8 % (43.0-75.0); Platelet Count 283 10^3/uL (150-450); Red Blood Count 4.32 10^6/uL (4.20-5.40); Red Cell Distribution Width 13.7 % (11.0-15.0); White Blood Count 6.2 10^3/uL (4.0-11.0)
[2023-08-14 09:50] LABS: Bilirubin Urine NEGATIVE (NEGATIVE); Blood Urine NEGATIVE (NEGATIVE); Clarity Urine CLEAR (CLEAR); Color Urine YELLOW (YELLOW); Glucose Urine UA NEGATIVE (NEGATIVE); Ketones Urine NEGATIVE (NEGATIVE); Leukocyte Esterase Urine NEGATIVE (NEGATIVE); Nitrite Urine NEGATIVE (NEGATIVE); Protein Urine NEGATIVE (NEG/TRACE); Specific Gravity Urine 1.025 (1.005-1.025); Urobilinogen Urine 0.2 EU/dL (0.2-1.0)
[2023-08-14 10:31] LABS: Free T4 1.49 ng/dL (0.76-1.46)
[2023-08-14 10:56] LABS: Urine Microscopic Indicated NO
== END 2023-08-14 08:34 | disposition home or self-care (01) ==
LOC: LAB 08:36
PROVIDERS: PCP Nurse Practitioner; Visit Provider Nurse Practitioner
DX: E78.2 Mixed hyperlipidemia (principal); I10 Essential (primary) hypertension; E55.9 Vitamin D deficiency, unspecified; E11.9 Type 2 diabetes mellitus without complications; E03.9 Hypothyroidism, unspecified
CPT/HCPCS: 36415; 80061; 81003; 82043; 82570; 83036; 84439; 84443; 85025

== ENCOUNTER 2023-10-08 11:27 | Outpatient (OUT) | payer MEDICARE, SELFPAY ==
--- OUTSIDE RECORDS SUMMARY | 2023-10-08 11:45 | XMS_ITS ---
Patient Summarization (C-CDA 2.1 CCD) Created on: October 08, 2023 Emily Adorno : 1955 Sex: Female Author Organization Sample organization Care Team Providers Care Adaptive Physical Educator Name Role Phone PHYSICIAN, DEFAULT Unavailable Unavailable PHYSICIAN, DEFAULT Unavailable Unavailable PHYSICIAN, DEFAULT Unavailable Unavailable PHYSICIAN, DEFAULT Unavailable Unavailable AICHHOLZ, STELLA J Primary Care Physician [phone] AICHHOLZ, [employer] TEACHER STELLA Attending Unavailable AICHHOLZ, HOME [employer] 7 AND 8 TEACHER STELLA Primary Care Unavailable AICHHOLZ, HOME TEACHING GRADES 7 AND 8 TEACHER STELLA Admitting Unavailable AICHHOLZ, HOME TEACHING [employer]ES 7 AND 8 TEACHER STELLA Consulting Unavailable AICHHOLZ, HOME TEACHING GRADES 7 AND 8 TEACHER STELLA Admitting Unavailable AICHHOLZ, HOME TEACHING GRADES 7 AND 8 TEACHER STELLA Attending Unavailable AICHHOLZ, HOME TEACHING GRADES 7 AND 8 TEACHER STELLA Primary Care Unavailable AICHHOLZ, HOME TEACHING GRADES 7 AND 8 TEACHER STELLA Consulting Unavailable DR GEORGINA HATCH Consulting Unavailable AICHHOLZ, HOME TEACHING [employer]ADES 7 AND 8 TEACHER STELLA Attending Unavailable AICHHOLZ, HOME TEACHING GRADES 7 AND 8 TEACHER STELLA Primary Care Unavailable AICHHOLZ, HOME TEACHING GRADES 7 AND 8 TEACHER STELLA Admitting Unavailable AICHHOLZ, HOME TEACHING GRADES 7 AND 8 TEACHER STELLA Consulting Unavailable AICHHOLZ, HOME TEACHING GRADES 7 AND 8 TEACHER STELLA Attending Unavailable AICHHOLZ, HOME TEACHING GRADES 7 AND 8 TEACHER STELLA Primary Care Unavailable AICHHOLZ, HOME TEACHING GRADES 7 AND 8 TEACHER STELLA Referring Unavailable AICHHOLZ, HOME TEACHING [employer]ES 7 AND 8 TEACHER STELLA Admitting Unavailable AICHHOLZ, HOME TEACHING GRADES 7 AND 8 TEACHER STELLA Consulting Unavailable DR LIZY MEADE V Consulting Unavailable AICHHOLZ, HOME TEACHING GRADES 7 AND 8 TEACHER STELLA Primary Care Unavailable AICHHOLZ, HOME TEACHING GRADES 7 AND 8 TEACHER STELLA Attending Unavailable AICHHOLZ, HOME TEACHING GRADES 7 AND 8 TEACHER STELLA Admitting Unavailable AICHHOLZ, HOME TEACHING GRADES 7 AND 8 TEACHER STELLA Consulting Unavailable AICHHOLZ, HOME TEACHING GRADES 7 AND 8 TEACHER STELLA Consulting Unavailable AICHHOLZ, HOME TEACHING GRADES 7 AND 8 TEACHER STELLA Primary Care Unavailable AICHHOLZ, HOME TEACHING GRADES 7 AND 8 TEACHER STELLA Attending Unavailable AICHHOLZ, HOME TEACHING GRADES 7 AND 8 TEACHER STELLA Admitting Unavailable AICHHOLZ, HOME TEACHING GRADES 7 AND 8 TEACHER STELLA Consulting Unavailable AICHHOLZ, HOME TEACHING GRADES 7 AND 8 TEACHER STELLA Primary Care Unavailable AICHHOLZ, HOME TEACHING GRADES 7 AND 8 TEACHER STELLA Attending Unavailable AICHHOLZ, HOME TEACHING GRADES 7 AND 8 TEACHER STELLA Admitting Unavailable AICHHOLZ, HOME TEACHING GRADES 7 AND 8 TEACHER STELLA Consulting Unavailable AICHHOLZ, HOME TEACHING GRADES 7 AND 8 TEACHER STELLA Admitting Unavailable AICHHOLZ, HOME TEACHING GRADES 7 AND 8 TEACHER STELLA Primary Care Unavailable AICHHOLZ, HOME TEACHING GRADES 7 AND 8 TEACHER STELLA Attending Unavailable AICHHOLZ, HOME TEACHING GRADES 7 AND 8 TEACHER STELLA Consulting Unavailable AICHHOLZ, HOME TEACHING GRADES 7 AND 8 TEACHER STELLA Primary Care Unavailable AICHHOLZ, HOME TEACHING GRADES 7 AND 8 TEACHER STELLA Attending Unavailable AICHHOLZ, HOME TEACHING GRADES 7 AND 8 TEACHER STELLA Admitting Unavailable Melchor, Faye A Attending Unavailable Melchor, Faye A Attending Unavailable SALAM, Dias Referring Unavailable SALAM, Dias Attending Unavailable SALAM, Dias Attending Unavailable SALAM, Dias Admitting Unavailable Stella Nieto J Primary Care Provider MD Jean Quick Attending Provider JEAN QUICK F Referring Unavailable MONICA NIETOA Bola Primary Care Unavailable GERSON, STELLA Attending Unavailable AICHHOLKassandra, STELLA Attending Unavailable AICHHOLKassandra, STELLA Attending Unavailable Gerson Stella J Primary Care Provider [phone] MD Jean Quick Attending Provider Jean Quick Attending Unavailable Gerson Stella J Primary Care Unavailable Debora, Ahmad Admitting Unavailable Debora, Ahmad Attending Unavailable Gerson Stella J Primary Care Unavailable Debora, Ahmad Admitting Unavailable Allergies Allergy Classification Reported Allergen(s) Allergy Type Date of Onset Reaction(s) Facility (4 sources) Penicillins; Translations: [penicillins] Drug allergy 09-18-2013 unknown [facility] Encounters Encounter Date Encounter Type Care Provider Facility Start: 09-25-2023 End: 09-25-2023 Patient encounter procedure Stella Gerson Work Phone: [facility] [place] Work Phone: Start: 09-25-2023 End: 09-25-20[address] Dedeleydasachin Work Phone: [facility] Work Phone: Start: 07-22-2023 End: 07-22-2023 ambulatory STELLA DEDEHHOLZ Not Available Start: 07-07-2023 End: 03-18-2024 ambulatory STELLA AICHHOLZ Not Available Start: 06-05-2023 End: 06-06-2023 ambulatory MARQUISE Adamson [facility] Start: 04-23-2023 End: 04-23-2023 ambulatory STELLA MENDEZHOLZ Not Available Start: 04-02-2023 End: 04-02-2023 ambulatory STELLA DEDEHHOLZ Not Available Start: 04-01-2023 End: 04-01-2023 ambulatory STELLAClaus MENDEZHOLZ Not Available Start: 03-26-2023 End: 03-26-2023 Patient encounter procedure Stella Mendezholz Work Phone: [facility] [place] Work Phone: Start: 03-26-2023 End: 03-26-2023 ambulatory Stella Nieto Work Phone: [facility] Work Phone: Start: 09-06-2022 ambulatory Faye Roche Facili ty:[facility] Start: 09-02-2022 End: 09-03-2022 ambulatory [employer] TEACHER STLELA OGHOLZ Facility:[facility] Start: 08-27-2022 End: 08-27-2022 Lab Drop off Diasye HORTON [facility] Start: 08-27-2022 End: 08-28-2022 ambulatory Dias SALAM Facility[facility] Start: 08-12-2022 End: 08-13-2022 ambulatory [employer] 8 TEACHER STELLA OGHOLZ Facility:[facility] Start: 08-02-2022 End: 08-03-2022 ambulatory Faye Roche Facility:[facility] Start: 07-15-2022 End: 07-16-2022 ambulatory [employer] 8 TEACHER STELLA AICHHOLZ Facility:[facility] Start: 07-11-2022 ambulatory Faye Roche Facility :[facility] Start: 07-04-2022 End: 07-05-[address] LIZY MEADE Facility:[facility] Start: 04-04-2022 End: 04-05-2022 ambulatory [employer] 8 TEACHER STELLA AICHHOLZ Facility:[facility] Start: 02-28-2022 End: 03-01-2022 ambulatory ARLEEN NIETO Facility:[facility] Start: 11-27-2021 End: 11-28-2021 ambulatory ARLEEN NIETO Facility:[facility] Start: 10-25-2021 End: 10-26-2021 ambulatory ARLEEN NIETO Facility:[facility] Start: 09-28-2021 End: 09-29-2021 ambulatory ARLEEN NIETO Facility:[facility] Start: 10-23-2017 End: 10-24-2017 Ambulatory DEFAULT PHYSICIAN Facility:[email or web address] Start: 10-13-2017 End: 10-14-2017 Ambulatory DEFAULT PHYSICIAN Facility:[facility] [[email or web address] Immunizations Immunization Date Immunization Notes Care Provider Fa cilirex 04-23-2022 SARS-CoV-2 (COVID-19 ) [id number] Dias SALAM [facility] 07-30-2021 SARS-CoV-2 mRNA (tkwvwcdyzes-sflo-qrary se) vaccine Dias SALAM [facility] 02-02-2021 influenza virus vaccine, unspecified formulation Dias SALAM [facility] 02-02-2021 pneumococcal conjuga te vaccine, 13 valent Dias SALAM [facility] 01-15-2021 SARS-CoV-2 (COVID-19 ) mRNA BNT-162b2 vax Dias SALAM [facility] 07-11-2020 SARS-CoV-2 (COVID-19 ) mRNA BNT-162b2 vax Dias SALAM [facility] 06-19-2020 SARS-CoV-2 (COVID-19 ) mRNA BNT-162b2 vax Dias SALAM [facility] 01-22-2020 influenza virus vaccine, unspecified formulation Dias SALAM [facility] 04-26-2019 influenza virus vaccine, unspecified formulation Dias SALAM [facility] 02-06-2018 influenza virus vaccine, unspecified formulation Dias SALAM [facility] 01-30-2017 influenza virus vaccine, unspecified formulation Dias SALAM [facility] 01-30-2016 zoster vaccine, live Larissa FRASER [facility] 01-15-2016 influenza virus vaccine, unspecified formulation Dias SALAM [facility] 04-22-2012 influenza, whole Dias SALAM [facility] 02-06-2009 influenza, whole Dias SALAM [facility] Medications Current Medications Medication Drug Class(es) Dates Sig (Normalized) Sig (Original) alendronic acid 35 mg oral tablet (1 source) Bisphosphonate Start: 03-24-2017 alendronate 35 mg oral tablet 35 mg = 1 tab(s), Oral, Refills(s) 0, Other (see comment) Start Date: 03/24/17 Status: Ordered {1 (Ascorbic Acid 7540 MG / POLYETHYLENE GLYCOL 3350 91356 MG / Potassium Chloride 1200 MG / Sodium Ascorbate 72799 MG / Sodium Chloride 3200 MG Powder for Oral Solution) / 1 (POLYETHYLENE GLYCOL 3350 593129 MG / Potassium Chloride 1000 MG / [...] 0, Prophylaxis Start Date: 03/24/17 Status: Ordered Payers Date Payer Category Payer Self-pay [id number] 1960 Medicaid [id number] 1960 Medicare [id number] 1955 Unknown [id number] 2.16.84 0.1.139619.3.579.2.593 1955 Unknown [id number] 2.16.84 0.1.847540.3.579.2.593 1955 Unknown [id number] 2.16.84 0.1.876185.3.579.2.593 1955 Unknown [id number] 2.16.84 0.1.735774.3.579.2.593 1955 Unknown [id number] 2.16.84 0.1.533168.3.579.2.593 1954 Unknown [id number] 2.16.84 0.1.899947.3.579.2.593 1955 Unknown [id number] 2.16.84 0.1.128223.3.579.2.593 1954 Unknown [id number] 2.16.84 0.1.836323.3.579.2.593 1954 Unknown [id number] 2.16.84 0.1.378445.3.579.2.593 1954 Unknown [id number] 2.16.8 40.1.540968.3.579.2.727 1955 Unknown [id number] 2.16.8 40.1.834923.3.579.2.727 1954 Unknown [id number] 2.16.8 40.1.023872.3.579.2.727 1954 Unknown [id number] 2.16.8 40.1.691469.3.579.2.727 1954 Unknown [id number] 2.16.8 40.1.304077.3.579.2.727 1954 Unknown [id number] 2.16.8 40.1.875379.3.579.2.1286 1954 Unknown [id number] 2.16.84 0.1.701307.3.579.2.1259 1955 Unknown [id number] 2.16.84 0.1.509033.3.579.2.1259 1954 Unknown [id number] 2.16.840 .1.823564.3.579.2.1259 1954 Unknown [id number] 2.16.840 .1.074894.3.579.2.1259 1955 Unknown [id number] 2.16.840 .1.899892.3.579.2.1259 Unknown Unknown [id number] 2.16.8 40.1.013988.3.579.2.531 Unknown [id number] 2.16.8 40.1.105595.3.579.2.531 Problems Problem Classification Problem Date Documented Da [...] Test Name Value Interpretation Reference Range Facility Albumin [Mass/volume] in Ser um or Plasma by Bromocresol green (BCG) dye binding methoOrdered By: Jean Quick on 09-25-2023 Albumin BCG dye [Mass/Vol] 4.2 g/dL 3.5-5.7 [facility] Calcium [Mass/volume] in Ser um or PlasmaOrdered By: Jean Quick on 09-25-2023 Calcium [Mass/Vol] 10.3 mg/dL Normal 8.6-10.[address] [facility] Comment on above: Performed By: #### V [id number], MG, PTH, RENAL #### [address] Carbon dioxide, total [Moles /volume] in Serum or PlasmaOrdered By: Jean Quick on 09-25-2023 CO2 [Moles/Vol] 29.4 mmol/L Normal 21.0-31.0 [facility] Comment on above: Performed By: #### V [id number], MG, PTH, RENAL #### [facility] [address] [place] [address] [place] Chloride [Moles/volume] in S rosalind or PlasmaOrdered By: Jean Quick on 09-25-2023 Chloride [Moles/Vol] 103 mmol/L Normal 98-107 [facility] Comment on above: Performed By: #### V [id number], MG, PTH, RENAL #### [facility] [address] Creatinine [Mass/volume] in Serum or PlasmaOrdered By: Jean Quick on 09-25-2023 Creatinine [Mass/Vol] 0.75 mg/dL Normal 0.60-1.20 [facility] Comment on above: Performed By: #### V [id number], MG, PTH, RENAL #### [facility] [address] [place] [address] [place] Glucose [Mass/volume] in Ser um or PlasmaOrdered By: Jean Quick on 09-25-2023 Glucose [Mass/Vol] 108 mg/dL High 70-[address] [facility] Comment on above: ADA recommended refe rence rangeRandom Glucose Reference Range is dependent on time and content of last meal. Glucose of more than 200 mg/dL in a nonstressed, ambulatory subject supports the diagnosis of Diabetes Mellitus. Result Comment: [place] om Glucose Reference Range is dependent on time and content of last meal. Glucose of more than 200 mg/dL in a nonstressed, ambulatory subject supports the diagnosis of Diabetes Mellitus. ADA recommended reference range Performed By: #### V [id number], MG, PTH, RENAL #### [facility] [address] [place] [address] [place] Magnesium [Mass/volume] in S rosalind or PlasmaOrdered By: Jean Quick on 09-25-2023 Magnesium [Mass/Vol] 1.8 mg/dL Low 1.9-2.7 [facility] Comment on above: Performed By: #### V [id number], MG, PTH, RENAL #### [address] No Panel InformationOrdered By: Jean Quick on 09-25-2023 Estimated GFR (CKD-EPI) > 60.0 mL/Min [facility] Creatinine Clearance (Chem N/A [facility] Parathyrin.intact [Mass/volu me] in Serum or PlasmaOrdered By: Jean Quick on 09-25-2023 Parathyrin.intact [Mass/Vol] 74.4 pg/mL [facility] Parathyroid Hormone Intacton 09-25-2023 Parathyroid Hormone Intact 74.4 pg/mL Normal [facility] Comment on above: Result Comment: PERF ORMED BY: [place] [address] PATHOLOGIST MANAGER BAKERY EZEQUIEL FIGUEREDO M.D. Performed By: #### V [id number], MG, PTH, RENAL #### [address] Phosphate [Mass/volume] in S rosalind or PlasmaOrdered By: Jean Quick on 09-25-2023 Phosphate [Mass/Vol] 3.3 mg/dL Normal 2.5-4.5 [facility] Comment on above: Performed By: #### V [id number], MG, PTH, RENAL #### [address] Potassium [Moles/volume] in Serum or PlasmaOrdered By: Jean Quick on 09-25-2023 Potassium [Moles/Vol] 4.3 mmol/L Normal 3.5-5.1 [facility] Comment on above: Performed By: #### V [id number], MG, PTH, RENAL #### [address] Renal Function Panelon 09-24 Albumin [Mass/Vol] 4.2 g/dL Normal 3.5-5.7 [facility] Comment on above: Performed By: #### V [id number], MG, PTH, RENAL #### [facility] [address] GFR/1.73 sq M.predicted MDRD (S/P/Bld) [Vol rate/Area] mL/min/{1.73_m2} Normal [facility] Comment on above: Performed By: #### V [id number], MG, PTH, RENAL #### [address] Serum or plasma anion gap de terminationOrdered By: Jean Quick on 09-25-2023 Anion gap [Moles/Vol] 11.9 mmol/L Normal 6.0-15.0 [facility] Comment on above: Performed By: #### V [id number], MG, PTH, RENAL #### [address] Sodium [Moles/volume] in Ser um or PlasmaOrdered By: Jean Quick on 09-25-2023 Sodium [Moles/Vol] 140 mmol/L Normal 136-[address] [facility] Comment on above: Performed By: #### V [id number], MG, PTH, RENAL #### [address] Urea nitrogen [Mass/volume] in Serum or PlasmaOrdered By: Jean Quick on 09-25-2023 Urea nitrogen [Mass/Vol] 11 mg/dL Normal 7-25 [facility] Comment on above: Performed By: #### V [id number], MG, PTH, RENAL #### [address] Vitamin D 25 Hydroxy Totalon 09-25-2023 Vitamin D 25 Hydroxy Total 36.4 ng/mL Normal 30-100 [facility] Comment on above: Result Comment: JUAN PABLO MIN D STATUS 25(OH)VITAMIN D RANGE (ng/mL) Deficient <20 Insufficient 20 to <30 Sufficient 30 to 100 Reference: Verito MF,Magali NC, Yumiko SCHWARZ, et al. Evaluation,treatment, and prevention of vitamin D deficiency; an Endocrine Society clinical practice guideline. JCEM. 2010; 96(7):1911-30. PERFORMED BY: [facility] [address] [place] [address] PATHOLOGIST MANAGER BAKERY EZEQUIEL FIGUEREDO M.D. Performed By: #### V [id number], MG, PTH, RENAL #### [facility] [address] [place] [id number] [facility] Vitamin D+Metabolites [Mass/ volume] in Serum or PlasmaOrdered By: Jean Quick on 09-25-2023 Vitamin D+Metabolites [Mass/Vol] 36.4 ng/mL 30-100 [facility] Comment on above: VITAMIN D STATUS 25( [place])VITAMIN D RANGE (ng/mL) Deficient <20 Insufficient 20 to <30Sufficient 30 to 100Reference: Verito MF,Magali GRIJALVA, Yumiko SCHWARZ, et al. Evaluation,treatment, and prevention of vitamin D deficiency; an Endocrine Society clinical practice guideline. JCEM. 2010; 96(7):191-. CALCIUMon 06-05-2023 Calcium [Mass/Vol] 10.3 mg/dL Normal 8.5-10.5 [facility] Comment on above: Performed By: #### 1 7861-6, 95209-8, 2731-8, 12153-9 #### [facility] ([id number]) [address], [address] [place] [address] MAGNESIUMon 06-05-2023 Magnesium [Mass/Vol] 1.7 mg/dL Low 1.8-2.6 [facility] Comment on above: Performed By: #### 1 7861-6, 25979-6, 2731-8, 12184-4 #### [facility] ([id number]) [address], [address] [place] [address] Parathyrin.intact [Mass/Vol] on 06-05-2023 PTH INTACT 71 pg/mL Normal 12-88 [facility] Comment on above: Performed By: #### 1 7861-6, 33308-4, 2731-8, 65381-4 #### [facility] ([id number]) [address], [address] [place] [address] RENAL PANELon 06-05-2023 Albumin [Mass/Vol] 4.3 g/dL Normal 3.2-5.3 [facility] Comment on above: Performed By: #### R ENAL #### [facility] ([id number]) [address], [address] [place] [address] Anion gap [Moles/Vol] 8 mmol/L Normal 5-15 [facility] Comment on above: Performed By: #### R ENAL #### [facility] ([id number]) [address], [address] [place] [address] Calcium [Mass/Vol] 10.6 mg/dL High 8.5-10.5 [facility] Comment on above: Performed By: #### R ENAL #### [facility] ([id number]) [address], [address] [place] [address] Chloride [Moles/Vol] 98 mmol/L Normal 98-109 [facility] Comment on above: Performed By: #### R ENAL #### [facility] ([id number]) [address], [address] [place] [address] CO2 [Moles/Vol] 31 mmol/L Normal 22-32 [facility] Comment on above: Performed By: #### R ENAL #### [facility] ([id number]) [address], [address] [place] [address] Creatinine [Mass/Vol] 0.82 mg/dL Normal 0.40-1.00 [facility] Comment on above: Result Comment: METH OD TRACEABLE TO IDMS STANDARD Performed By: #### R ENAL #### [facility] ([id number]) [address], [address] [place] [address] GFR/1.73 sq M.predicted among non-blacks MDRD (S/P/Bld) [Vol rate/Area] 77 mL/min/{1.73_m2} Normal >59 [facility] Comment on above: Result Comment: Reported eGFR is based on the CKD-EPI 2020 equation that does not use a race coefficient. Performed By: #### R ENAL #### [facility] ([id number]) [address], [address] [place] [address] Glucose [Mass/Vol] 156 mg/dL High 65-99 [facility] Comment on above: Performed By: #### R ENAL #### [facility] ([id number]) [address], [address] [place] [address] Phosphate [Mass/Vol] 3.2 mg/dL Normal 2.4-4.9 [facility] Comment on above: Performed By: #### R ENAL #### [facility] ([id number]) [address], [address] [place] [address] Potassium [Moles/Vol] 4.2 mmol/L Normal 3.5-5.0 [facility] Comment on above: Performed By: #### R ENAL #### [facility] ([id number]) [address], [address] [place] [address] Sodium [Moles/Vol] 137 mmol/L Normal 134-146 [facility] Comment on above: Performed By: #### R ENAL #### [facility] ([id number]) [address], [address] [place] [address] Urea nitrogen [Mass/Vol] 11 mg/dL Normal 5-27 [facility] Comment on above: Performed By: #### R ENAL #### [facility] ([id number]) [address], [address] [place] [address] Vitamin D+Metabolites [Mass/ Vol]on 06-05-2023 VITAMIN D 25 HYD TOT 36.7 ng/mL Normal 30-100 [facility] Comment on above: Result Comment: Vitamin D status 25 [place] Vitamin D Deficiency <20 ng/mL Insufficiency 20-29 ng/mL Sufficiency 30-100 ng/mL Toxicity >100 ng/mL NOTE: A pediatric reference range has not been established by the nutrient management specialist of this kit. The [place] [employer] recommends a Vitamin D level of = or >20ng/mL in infants and children. Performed By: #### 1 7861-6, 17468-7, 2731-8, 40345-1 #### [facility] ([id number]) [address] [place] [address], [address] [place] [address] Albumin [Mass/volume] in Ser um or Plasma by Bromocresol green (BCG) dye binding methoOrdered By: Jean Quick on 03-26-2023 Albumin BCG dye [Mass/Vol] 4.3 g/dL 3.5-5.7 [facility] Calcium [Mass/volume] in Ser um or PlasmaOrdered By: Jean Quick on 03-26-2023 Calcium [Mass/Vol] 10.5 mg/dL High 8.6-10.[address] [facility] Comment on above: Performed By: #### R ENAL, MG, PTH, [id number] #### [facility] [address] [place] [address] [place] Carbon dioxide, total [Moles /volume] in Serum or PlasmaOrdered By: Jean Quick on 03-26-2023 CO2 [Moles/Vol] 29.4 mmol/L Normal 21.0-31.0 [facility] Comment on above: Performed By: #### R ENAL, MG, PTH, [id number] #### [facility] [address] [place] [id number] [place] Chloride [Moles/volume] in S rosalind or PlasmaOrdered By: Jean Quick on 03-26-2023 Chloride [Moles/Vol] 104 mmol/L Normal 98-107 [facility] Comment on above: Performed By: #### R ENAL, MG, PTH, [id number] #### [facility] [address] Creatinine [Mass/volume] in Serum or PlasmaOrdered By: Jean Quick on 03-26-2023 Creatinine [Mass/Vol] 0.79 mg/dL Normal 0.60-1.20 [facility] Comment on above: Performed By: #### R ENAL, MG, PTH, [id number] #### [facility] [address] [place] [id number] [facility] Glucose [Mass/volume] in Ser um or PlasmaOrdered By: Jean Quick on 03-26-2023 Glucose [Mass/Vol] 136 mg/dL High 70-[address] [facility] Comment on above: ADA recommended refe rence rangeRandom Glucose Reference Range is dependent on time and content of last meal. Glucose of more than 200 mg/dL in a nonstressed, ambulatory subject supports the diagnosis of Diabetes Mellitus. Result Comment: [place] om Glucose Reference Range is dependent on time and content of last meal. Glucose of more than 200 mg/dL in a nonstressed, ambulatory subject supports the diagnosis of Diabetes Mellitus. ADA recommended reference range Performed By: #### R ENAL, MG, PTH, [id number] #### [facility] [address] [place] [id number] [facility] Magnesium [Mass/volume] in S rosalind or PlasmaOrdered By: Jean Quick on 03-26-2023 Magnesium [Mass/Vol] 1.6 mg/dL Low 1.9-2.7 [facility] Comment on above: Performed By: #### R ENAL, MG, PTH, [id number] #### [facility] [address] No Panel InformationOrdered By: Jean Quick on 03-26-2023 Estimated GFR (CKD-EPI) > 60.0 mL/Min [facility] Creatinine Clearance (Chem N/A [facility] Parathyrin.intact [Mass/volu me] in Serum or PlasmaOrdered By: Jean Quick on 03-26-2023 Parathyrin.intact [Mass/Vol] 105.1 pg/mL [facility] Parathyroid Hormone Intacton 03-26-2023 Parathyroid Hormone Intact 105.1 pg/mL High [facility] Comment on above: Result Comment: PERF ORMED BY: [place] [address] PATHOLOGIST MANAGER BAKERY EZEQUIEL FIGUEREDO M.D. Performed By: #### R ENAL, MG, PTH, [id number] #### [address] Phosphate [Mass/volume] in S rosalind or PlasmaOrdered By: Jean Quick on 03-26-2023 Phosphate [Mass/Vol] 3.1 mg/dL Normal 2.5-4.5 [facility] Comment on above: Performed By: #### R ENAL, MG, PTH, [id number] #### [address] Potassium [Moles/volume] in Serum or PlasmaOrdered By: Jean Quick on 03-26-2023 Potassium [Moles/Vol] 4.8 mmol/L Normal 3.5-5.1 [facility] Comment on above: Performed By: #### R ENAL, MG, PTH, [id number] #### [address] Renal Function Panelon 03-26 Albumin [Mass/Vol] 4.3 g/dL Normal 3.5-5.7 [facility] Comment on above: Performed By: #### R ENAL, MG, PTH, [id number] #### [place] [address] [place] GFR/1.73 sq M.predicted MDRD (S/P/Bld) [Vol rate/Area] mL/min/{1.73_m2} Normal [facility] Comment on above: Performed By: #### R ENAL, MG, PTH, [id number] #### [address] Serum or plasma anion gap de terminationOrdered By: Jean Quick on 03-26-2023 Anion gap [Moles/Vol] 11.4 mmol/L Normal 6.0-15.0 [facility] Comment on above: Performed By: #### R ENAL, MG, PTH, [id number] #### [address] Sodium [Moles/volume] in Ser um or PlasmaOrdered By: Jean Quick on 03-26-2023 Sodium [Moles/Vol] 140 mmol/L Normal 136-[address] [facility] Comment on above: Performed By: #### R ENAL, MG, PTH, [id number] #### [address] Urea nitrogen [Mass/volume] in Serum or PlasmaOrdered By: Jean Quick on 03-26-2023 Urea nitrogen [Mass/Vol] 8 mg/dL Normal 7-25 [facility] Comment on above: Performed By: #### R ENAL, MG, PTH, [id number] #### [address] Vitamin D 25 Hydroxy Totalon 03-26-2023 Vitamin D 25 Hydroxy Total 38.1 ng/mL Normal 30-100 [facility] Comment on above: Result Comment: JUAN PABLO MIN D STATUS 25(OH)VITAMIN D RANGE (ng/mL) Deficient <20 Insufficient 20 to <30 Sufficient 30 to 100 Reference: Verito MF,Magali NC, Yumiko SCHWARZ, et al. Evaluation,treatment, and prevention of vitamin D deficiency; an Endocrine Society clinical practice guideline. JCEM. 2010; 96(7):1911-30. PERFORMED BY: [place] [address] PATHOLOGIST MANAGER BAKERY EZEQUIEL FIGUEREDO M.D. Performed By: #### R ENAL, MG, PTH, [id number] #### [address] Vitamin D+Metabolites [Mass/ volume] in Serum or PlasmaOrdered By: Jean Quick on 03-26-2023 Vitamin D+Metabolites [Mass/Vol] 38.1 ng/mL 30-100 [facility] Comment on above: VITAMIN D STATUS 25( [place])VITAMIN D RANGE (ng/mL) Deficient <20 Insufficient 20 to <30Sufficient 30 to 100Reference: Verito MF,Magali GRIJALVA, Yumiko SCHWARZ, et al. Evaluation,treatment, and prevention of vitamin D deficiency; an Endocrine Society clinical practice guideline. JCEM. 2010; 96(7):1911-30. Reminderson 09-03-2022 Reminders --- From: [employer] [facility] To: JOVANA - Reminders/Recalls; Sent: 09/03/2022 18:05:18 EDT Show up: 07/28/2029 18:05:00 EDT Subject: Ambulatory Reminder Due Date/Time: 08/27/2029 18:05:00 EDT Reminder/Recall Repeat colonoscopy in 7 years(2029) due to tubular adenoma Normal [facility] XR DEXA BONE DENSITYon 09-02 XR DEXA [...] by: GEORGINA HATCH Date: 2022-09-02 13:17 Normal [facility] Outside Colonoscopyon 2022 Outside Colonoscopy [id number]:127 Normal [facility] Physician Orderon 08-27-2022 Physician Order [id number]:127 Normal [facility] CULTURE URINEon 08-12-2022 CULTURE URINE Culture Observations: NO GROWTH. Normal [facility] Comment on above: Performed By: #### T SH, FT3 #### [facility] [address] [place] [address] Dr. Herve Machado UA RANDOM W/MICROSCOPICon BACTERIA NONE SEEN Normal NONE SEEN [facility] Comment on above: Performed By: #### T SH, FT3 #### [facility] [address] [place] [address] Dr. Herve Machado Bilirubin Ql (U) Negative Normal NEGATIVE [facility] Comment on above: Performed By: #### T SH, FT3 #### [facility] [address] [place] [address] Dr. Herve Machado CAST NONE SEEN Normal NONE SEEN [facility] Comment on above: Performed By: #### T SH, FT3 #### [facility] [address] [place] [address] Dr. Herve Machado Clarity (U) CLEAR Normal CLEAR [facility] Comment on above: Performed By: #### T SH, FT3 #### [facility] [address] [place] [address] Dr. Herve Machado Color (U) LT. YELLOW Normal YELLOW [facility] Comment on above: Performed By: #### T SH, FT3 #### [facility] [address] [place] [address] Dr. Herve Machado Crystals LM Nom (Urine sed) NONE SEEN Normal NONE SEEN [facility] Comment on above: Performed By: #### T SH, FT3 #### [facility] [address] [place] [address] Dr. Herve Machado Epithelial cells LM Ql (Urine sed) RARE Normal NONE SEEN /RARE [facility] Comment on above: Performed By: #### T SH, FT3 #### [facility] [address] [address] [address] Herve Machado Glucose Ql (U) 500 mg/dl Abnormal NEGATIVE [facility] Comment on above: Performed By: #### T SH, FT3 #### [facility] [address] [place] [address] Dr. Herve Machado Hemoglobin Ql (U) Negative Normal NEGATIVE [facility] Comment on above: Performed By: #### T , FT3 #### [facility] [address] [place] [address] Dr. Herve Machado Ketones Ql (U) Negative Normal NEGATIVE [facility] Comment on above: Performed By: #### T , FT3 #### [facility] [address] [place] [address] Dr. Herve Machado LEUKOCYTES Negative Normal NEGATIVE [facility] Comment on above: Performed By: #### T , FT3 #### [facility] [address] [place] [address] Dr. Herve Machado MUCOUS NONE SEEN Normal NONE SEEN [facility] Comment on above: Performed By: #### T , FT3 #### [facility] [address] [place] [address] Dr. Herve Machado Nitrite Ql (U) Negative Normal NEGATIVE [facility] Comment on above: Performed By: #### T , FT3 #### [facility] [address] [place] [address] Dr. Herve Machado pH (U) 5.0 [pH] Normal 5-9 [facility] Comment on above: Performed By: #### T , FT3 #### [facility] [address] [place] [address] Dr. Herve Machado RBC 0-2 Normal 0-2 [facility] Comment on above: Performed By: #### T , FT3 #### [facility] [address] [place] [address] Dr. Herve Machado SPEC GRAVITY 1.020 Normal 1.005-<=1.025 [facility] Comment on above: Performed By: #### T , FT3 #### [facility] [address] [address] [address] Herve Machado UA PROTEIN Negative Normal NEGATIVE/ TRACE [facility] Comment on above: Performed By: #### T SH, FT3 #### [facility] [address] [address] [address] Herve Machado Urobilinogen Qn (U) 0.2 {Connie'U}/dL Normal 0.2 - 1. 0 [facility] Comment on above: Performed By: #### T SH, FT3 #### [facility] [address] [address] [address] Herve Machado WBC NONE SEEN Normal NONE SEEN [facility] Comment on above: Performed By: #### T SH, FT3 #### [facility] [address] [address] [address] Herve Machado Consent for Procedure/Surger yon 08-05-2022 Consent for Procedure/Surgery [id number]:127 Normal [facility] Ambulatory Visit Summaryon 0 08-02-2022 Ambulatory Visit Summary EMIYL ADORNO :1955 Visit Date:08/02/2022 Ambulatory Visit Instructions Your [...] See instructions Prior to colonoscopy. Pickup at [facility] 1426 Unchanged alendronate (alendronate 35 mg oral [...] physician if questions or concerns Pharmacy Information [facility]: [address] [place], [place] [id number] [phone] Allergies penicillins (unknown) Problems Ongoing - Any [...] including vitamins, herbs, eye drops, creams, and hynn-hmu-qssbdvb medicines. ? Any problems you or family [...] anything starting (more content not included)... Normal [facility] Gastroenterology Office/Clin ic Noteon 08-02-2022 Gastroenterology Office/Clinic [...] in 2013 she had previous colonoscopy in [place], [place] that showed polyps- no record to [...] 1 EA, Refill(s) 0, Prior to colonoscopy., [facility], 139.7, cm, 08/02/22 10:20:00 EDT, [...] 08/02/2022 Immunizations Vaccine Date Status SARS-CoV-2 (COVID-19) mRNAMUL.[id number] 04/23/2022 Recorded SARSCoV2 mRNA(tozinamer-tri s-sucros) vac 07/30/2021 Recorded pneumococcal 13-valent vaccine [...] Recorded influenza, whole 02/06/2009 Recorded Normal [facility] Comment on above: Result Comment: Elec tronically Signed By: Faye Roche CNP\.br\Date and Time Signed: 08/02/22 10:38 EDT Patient [...] including vitamins, herbs, eye drops, creams, and ahxl-bly-vpagvvz medicines. ? Any problems you or family [...] air t (more content not included)... Normal [facility] Provider Letteron 07-16-2022 Provider Letter July 16, 2022 EMILY ADORNO [address] [place] [address] EMILY ADORNO 1955 Dear Emily, We have been trying to reach you with no success. It is important that you return our call regarding your referral sent by your primary care physician to see our office upon receiving this letter. Also, at the time of your call, please provide us with your current information. Thank you for your prompt attention to this matter. Sincerely, [facility]. Normal [facility] CBC AUTO DIFFon 07-15-2022 BASO # 0.0 103/ul Normal 0.0-0.1 [facility] Comment on above: Performed By: #### C BC #### [facility] [address] [place] [address] Dr. Herve Machado Basophils/100 WBC (Bld) 0.4 % Normal 0.2-2.0 [facility] Comment on above: Performed By: #### C BC #### [facility] [address] [place] [address] Dr. Herve Machado EO # 0.2 103/ul Normal 0.0-0.7 [facility] Comment on above: Performed By: #### C BC #### [facility] [address] [place] [address] Dr. Herve Machado Eosinophils/100 WBC (Bld) 2.7 % Normal 0.9-7.0 [facility] Comment on above: Performed By: #### C BC #### [facility] [address] [place] [address] Dr. Herve Machado Erythrocyte distribution width (RBC) [Ratio] 12.3 % Normal 11.0-15.0 [facility] Comment on above: Performed By: #### C BC #### [facility] [address] [place] [address] Dr. Herve Machado Hematocrit (Bld) [Volume fraction] 43.8 % Normal 36.0-48.0 [facility] Comment on above: Performed By: #### C BC #### [facility] [address] [place] [address] Dr. Herve Machado Hemoglobin (Bld) [Mass/Vol] 14.1 g/dL Normal 12.0-16.0 [facility] Comment on above: Performed By: #### C BC #### [facility] [address] [place] [address] Dr. Herve Machado IG # 0.01 10e3/ul Normal 0.00-0.03 [facility] Comment on above: Performed By: #### C BC #### [facility] [address] [place] [address] Dr. Herve Machado IG % 0.1 % Normal 0.0-0.5 [facility] Comment on above: Performed By: #### C BC #### [facility] [address] [place] [address] Dr. Herve Machado LYMPH # 1.7 103/ul Normal 1.2-3.8 [facility] Comment on above: Performed By: #### C BC #### [facility] [address] [place] [address] Dr. Herve Machado Lymphocytes/100 WBC (Bld) 23.6 % Normal 20.5-60.0 [facility] Comment on above: Performed By: #### C BC #### [facility] [address] [place] [address] Dr. Herve Machado MANUAL DIFF REQ NO Normal [facility] Comment on above: Performed By: #### C BC #### [facility] [address] [place] [address] Dr. Herve Machado MCH (RBC) [Entitic mass] 31.1 pg Normal 26.7-34.0 [facility] Comment on above: Performed By: #### C BC #### [facility] [address] [address] [address] Herve Machado MCHC (RBC) [Mass/Vol] 32.2 g/dL Normal 29.9-35.2 [facility] Comment on above: Performed By: #### C BC #### [facility] [address] [address] [address] Herve Machado MCV (RBC) [Entitic vol] 96.5 fL Normal 81.0-99.0 [facility] Comment on above: Performed By: #### C BC #### [facility] [address] [place] [address] Dr. Herve Machado MONO # 0.4 103/ul Normal 0.3-0.8 [facility] Comment on above: Performed By: #### C BC #### [facility] [address] [place] [address] Dr. Herve Machado Monocytes/100 WBC (Bld) 5.8 % Normal 1.7-12.0 [facility] Comment on above: Performed By: #### C BC #### [facility] [address] [place] [address] Dr. Herve Machado NEUT # 4.9 103/ul Normal 1.4-6.5 [facility] Comment on above: Performed By: #### C BC #### [facility] [address] [place] [address] Dr. Herve Machado Neutrophils/100 WBC (Bld) 67.4 % Normal 43.0-75.0 [facility] Comment on above: Performed By: #### C BC #### [facility] [address] [place] [address] Dr. Herve Machado Platelet mean volume (Bld) [Entitic vol] 9.9 fL Normal 9.5-13.5 [facility] Comment on above: Performed By: #### C BC #### [facility] [address] [place] [address] Dr. Herve Machado PLT 229 103/ul Normal 150-450 [facility] Comment on above: Performed By: #### C BC #### [facility] [address] [place] [address] Dr. Herve Machado RBC 4.54 106/ul Normal 4.20-5.40 [facility] Comment on above: Performed By: #### C BC #### [facility] [address] [place] [address] Dr. Herve Machado WBC 7.3 103/ul Normal 4.0-11.0 [facility] Comment on above: Performed By: #### C BC #### [facility] [address] [place] [address] Dr. Herve Machado GLYCOHEMOGLOBIN A1Con 2022 ADA RECOMMENDATION SEE BELOW Normal [facility] Comment on above: Result Comment: ADA RECOMMENDED LIMIT 4.0 - 6.0 ADA THERAPEUTIC TARGET < 7.0 ACTION SUGGESTED > 7.0 Performed By: #### T SH, FT3 #### [facility] [address] [place] [address] Dr. Herve Machado Glucose [Mass/Vol] 160 mg/dL Normal [facility] Comment on above: Performed By: #### T SH, FT3 #### [facility] [address] [place] [address] Dr. Herve Machado HbA1c (Bld) [Mass fraction] 7.2 % Critically high 4.5-6.2 [facility] Comment on above: Performed By: #### T SH, FT3 #### [facility] [address] [place] [address] Dr. Herve Machado LIPID PROFILEon 07-15-2022 CHOL-HDL RATIO NORM SEE BELOW Normal [facility] Comment on above: Result Comment: 3.3 - 4.4 LOW RISK 4.4 - 7.1 AVERAGE RISK 7.1 - 11.0 MODERATE RISK >11.0 HIGH RISK Performed By: #### T SH, FT3 #### [facility] [address] [place] [address] Dr. Herve Machado Cholesterol [Mass/Vol] 136 mg/dL Normal <=200 [facility] Comment on above: Performed By: #### T SH, FT3 #### [facility] [address] [address] [address] Herve Machado Cholesterol in HDL [Mass/Vol] 51 mg/dL Normal 40-60 [facility] Comment on above: Performed By: #### T SH, FT3 #### [facility] [address] [address] [address] Herve Machado Cholesterol in LDL [Mass/Vol] 68.6 mg/dL Normal [facility] Comment on above: Performed By: #### T SH, FT3 #### [facility] [address] [address] [address] Herve Machado Cholesterol.total/Cholest rivas in HDL [Mass ratio] 2.7 {ratio} Normal [facility] Comment on above: Performed By: #### T SH, FT3 #### [facility] [address] [place] [address] Dr. Herve Machado HDL NORMAL > or = 60 mg/dl - LOW CARDIOVASCULAR RISK <40 mg/dl - HIGH CARDIOVASCULAR RISK Normal [facility] Comment on above: Performed By: #### T SH, FT3 #### [facility] [address] [place] [address] Dr. Herve Machado LDL CALC NORMAL SEE BELOW Normal [facility] Comment on above: Result Comment: <100 mg/dl OPTIMAL 100 - 129 mg/dl NEAR OR ABOVE OPTIMAL 130 - 159 mg/dl BORDERLINE HIGH 160 - 189 mg/dl HIGH >190 mg/dl VERY HIGH Performed By: #### T SH, FT3 #### [facility] [address] [address] [address] Herve Machado Triglyceride [Mass/Vol] 82 mg/dL Normal <=150 [facility] Comment on above: Performed By: #### T SH, FT3 #### [facility] [address] [place] [address] Dr. Herve Machado VLDL CALC 16.4 mg/dL Normal [facility] Comment on above: Performed By: #### T SH, FT3 #### [facility] [address] [address] [address] Herve Machado MICROALBUMIN, RAND URon 03-2 7-2023 mALB <1.3 Normal <=30.0 [facility] Comment on above: Performed By: #### T ASIA, FT3 #### [facility] [address] [place] [address] Dr. Herve Machado PROF 14(COMP METB)on 023 Albumin [Mass/Vol] 3.6 g/dL Normal 3.4-5.0 [facility] Comment on above: Performed By: #### T ASIA, FT3 #### [facility] [address] [place] [address] Dr. Herve Machado Albumin/Globulin [Mass ratio] 1.1 {ratio} Normal [facility] Comment on above: Performed By: #### T ASIA, FT3 #### [facility] [address] [place] [address] Dr. Herve Machado ALP [Catalytic activity/Vol] 64 U/L Normal 46-116 [facility] Comment on above: Performed By: #### T ASIA, FT3 #### [facility] [address] [place] [address] Dr. Herve Machado ALT [Catalytic activity/Vol] 21 U/L Normal 14-59 [facility] Comment on above: Performed By: #### T ASIA, FT3 #### [facility] [address] [place] [address] Dr. Herve Machado Anion gap [Moles/Vol] 11.2 mmol/L Normal [facility] Comment on above: Performed By: #### T ASIA, FT3 #### [facility] [address] [place] [address] Dr. Herve Machado AST [Catalytic activity/Vol] 18 U/L Normal 15-37 [facility] Comment on above: Performed By: #### T SH, FT3 #### [facility] [address] [place] [address] Dr. Herve Machado Bilirubin [Mass/Vol] 0.6 mg/dL Normal 0.2-1.0 [facility] Comment on above: Performed By: #### T SH, FT3 #### [facility] [address] [address] [address] Herve Machado Calcium [Mass/Vol] 10.2 mg/dL Critically high 8.5-10.1 [facility] Comment on above: Performed By: #### T SH, FT3 #### [facility] [address] [place] [address] Dr. Herve Machado Chloride [Moles/Vol] 107 mmol/L Normal 98-107 [facility] Comment on above: Performed By: #### T , FT3 #### [facility] [address] [place] [address] Dr. Herve Machado CO2 [Moles/Vol] 28.3 mmol/L Normal 21.0-32.0 [facility] Comment on above: Performed By: #### T SH, FT3 #### [facility] [address] [place] [address] Dr. Herve Machado Creatinine [Mass/Vol] 0.66 mg/dL Normal 0.55-1.02 [facility] Comment on above: Performed By: #### T , FT3 #### [facility] [address] [place] [address] Dr. Herve Machado EGFR-AF SURINAMESE >60 Normal >=60 [facility] Comment on above: Performed By: #### T , FT3 #### [facility] [address] [place] [address] Dr. Herve Machado EGFR-NON AF SURINAMESE >60 Normal >=60 [facility] Comment on above: Performed By: #### T , FT3 #### [facility] [address] [place] [address] Dr. Herve Machado Globulin (S) [Mass/Vol] 3.3 g/dL Normal [facility] Comment on above: Performed By: #### T , FT3 #### [facility] [address] [place] [address] Dr. Herve Machado Glucose [Mass/Vol] 154 mg/dL Critically high 74-106 [facility] Comment on above: Performed By: #### T , FT3 #### [facility] [address] [place] [address] Dr. Herve Machado Potassium [Moles/Vol] 4.5 mmol/L Normal 3.5-5.1 [facility] Comment on above: Performed By: #### T SH, FT3 #### [facility] [address] [place] [address] Dr. Herve Machado Protein [Mass/Vol] 6.9 g/dL Normal 6.4-8.2 [facility] Comment on above: Performed By: #### T SH, FT3 #### [facility] [address] [place] [address] Dr. Herve Machado Sodium [Moles/Vol] 142 mmol/L Normal 136-145 [facility] Comment on above: Performed By: #### T SH, FT3 #### [facility] [address] [place] [address] Dr. Herve Machado Urea nitrogen [Mass/Vol] 11.0 mg/dL Normal 7.0-18.0 [facility] Comment on above: Performed By: #### T , FT3 #### [facility] [address] [place] [address] Dr. Herve Machado Urea nitrogen/Creatinine [Mass ratio] 16.7 mg/mg Normal [facility] Comment on above: Performed By: #### T SH, FT3 #### [facility] [address] [place] [address] Dr. Herve Machado UA RANDOM W/MICROSCOPICon BACTERIA MODERATE Abnormal NONE SEEN [facility] Comment on above: Performed By: #### U AMIC #### [facility] [address] [place] [address] Dr. Herve Machado Bilirubin Ql (U) Negative Normal NEGATIVE [facility] Comment on above: Performed By: #### U AMIC #### [facility] [address] [place] [address] Dr. Herve Machado CAST NONE SEEN Normal NONE SEEN [facility] Comment on above: Performed By: #### U AMIC #### [facility] [address] [place] [address] Dr. Herve Machado Clarity (U) CLEAR Normal CLEAR [facility] Comment on above: Performed By: #### U AMIC #### [facility] [address] [place] [address] Dr. Herve Machado Color (U) LT. YELLOW Normal YELLOW [facility] Comment on above: Performed By: #### U AMIC #### [facility] [address] [address] [address] Herve Machado Crystals LM Nom (Urine sed) NONE SEEN Normal NONE SEEN [facility] Comment on above: Performed By: #### U AMIC #### [facility] [address] [address] [address] Herve Machado Epithelial cells LM Ql (Urine sed) FEW Abnormal NONE SEEN /RARE [facility] Comment on above: Performed By: #### U AMIC #### [facility] [address] [place] [address] Dr. Herve Machado Glucose Ql (U) Negative Normal NEGATIVE [facility] Comment on above: Performed By: #### U AMIC #### [facility] [address] [place] [address] Dr. Herve Machado Hemoglobin Ql (U) Negative Normal NEGATIVE [facility] Comment on above: Performed By: #### U AMIC #### [facility] [address] [place] [address] Dr. Herve Machado Ketones Ql (U) Negative Normal NEGATIVE [facility] Comment on above: Performed By: #### U AMIC #### [facility] [address] [place] [address] Dr. Herve Machado LEUKOCYTES Negative Normal NEGATIVE [facility] Comment on above: Performed By: #### U AMIC #### [facility] [address] [place] [address] Dr. Herve Machado MUCOUS NONE SEEN Normal NONE SEEN [facility] Comment on above: Performed By: #### U AMIC #### [facility] [address] [place] [address] Dr. Herve Machado Nitrite Ql (U) Positive Abnormal NEGATIVE [facility] Comment on above: Performed By: #### U AMIC #### [facility] [address] [address] [address] Herve Machado pH (U) 6.0 [pH] Normal 5-9 [facility] Comment on above: Performed By: #### U AMIC #### [facility] [address] [address] [address] Herve Machado RBC 0-2 Normal 0-2 [facility] Comment on above: Performed By: #### U AMIC #### [facility] [address] [address] [address] Herve Machado SPEC GRAVITY 1.010 Normal 1.005-<=1.025 [facility] Comment on above: Performed By: #### U AMIC #### [facility] [address] [address] [address] Herve Machado UA PROTEIN Negative Normal NEGATIVE/ TRACE [facility] Comment on above: Performed By: #### U AMIC #### [facility] [address] [address] [address] Herve Machado Urobilinogen Qn (U) 0.2 {Connie'U}/dL Normal 0.2 - 1. 0 [facility] Comment on above: Performed By: #### U AMIC #### [facility] [address] [address] [address] Herve Machado WBC 2-5 Abnormal NONE SEEN [facility] Comment on above: Performed By: #### U AMIC #### [facility] [address] [address] [address] Herve Machado Physician Referralon 023 Physician Referral [phone] [id number] Normal [facility] MG MAMM SCREEN 3D VEDA CADon 07-04-2022 MG MAMM SCREEN 3D VEDA CAD Patient: EMILY ADORNO Exam Date: 07/04/2022 : 1955 Gender:F Ordering : [employer] Admission #: [id number] Family : Order #: [id number] CLICK HERE TO VIEW EXAM RADIOLOGY REPORT [...] pancreatic cancer at age 64. LOCATION: [facility] BREAST COMPOSITION: Scattered areas fibroglandular density. FINDINGS: [...] MD on 07/04/2022 at 10:24 Normal [facility] GLYCOHEMOGLOBIN A1Con 2021 ADA RECOMMENDATION SEE BELOW Normal The [facility] Comment on above: Result Comment: ADA RECOMMENDED LIMIT 4.0 - 6.0 ADA THERAPEUTIC TARGET < 7.0 ACTION SUGGESTED > 7.0 Performed By: #### A 1C #### [facility] [address] [place] [address] Dr. Herve Machado Glucose [Mass/Vol] 189 mg/dL Normal [facility] Comment on above: Performed By: #### A 1C #### [facility] [address] [place] [address] Dr. Herve Machado HbA1c (Bld) [Mass fraction] 8.2 % Critically high 4.5-6.2 [facility] Comment on above: Performed By: #### A 1C #### [facility] [address] [place] [address] Dr. Herve Machado FREE T3on 02-28-2022 FREE T3 2.44 pg/mlL Normal 2.18-3.98 [facility] Comment on above: Performed By: #### T SH, FT3 #### [facility] [address] [place] [address] Dr. Herve Machado FREE T4on 02-28-2022 Free T4 [Mass/Vol] 1.48 ng/dL Critically high 0.76-1.46 [facility] Comment on above: Performed By: #### T SH, FT3 #### [facility] [address] [place] [address] Dr. Herve Machado TSHon 02-28-2022 TSH 1.115 uIU/mL Normal 0.358-3.740 [facility] Comment on above: Performed By: #### T SH, FT3 #### [facility] [address] [place] [address] Dr. Herve Machado FREE T3on 11-27-2021 FREE T3 2.54 pg/mlL Normal 2.18-3.98 [facility] Comment on above: Performed By: #### T SH, FT3 #### [facility] [address] [place] [address] Dr. Herve Machado FREE T4on 11-27-2021 Free T4 [Mass/Vol] 1.85 ng/dL Critically high 0.76-1.46 [facility] Comment on above: Performed By: #### T SH, FT3 #### [facility] [address] [place] [address] Dr. Herve Machado TSHon 11-27-2021 TSH 0.228 uIU/mL Critically low 0.358-3.740 [facility] Comment on above: Performed By: #### T SH, FT3 #### [facility] [address] [place] [address] Dr. Herve Machado FREE T3on 10-25-2021 FREE T3 2.50 pg/mlL Normal 2.18-3.98 [facility] Comment on above: Performed By: #### T SH, FT3 #### [facility] [address] [place] [address] Dr. Herve Machado FREE T4on 10-25-2021 Free T4 [Mass/Vol] 1.61 ng/dL Critically high 0.76-1.46 [facility] Comment on above: Performed By: #### T SH, FT3 #### [facility] [address] [address] [address] Herve Machado TSHon 10-25-2021 TSH 1.949 uIU/mL Normal 0.358-3.740 [facility] Comment on above: Performed By: #### T SH, FT3 #### [facility] [address] [place] [address] Dr. Herve Machado FREE T4on 09-28-2021 Free T4 [Mass/Vol] 1.50 ng/dL Critically high 0.76-1.46 [facility] Comment on above: Performed By: #### T SH, FT3 #### [facility] [address] [place] [address] Dr. Herve Machado LIPID PROFILEon 09-28-2021 CHOL-HDL RATIO NORM SEE BELOW Normal [facility] Comment on above: Result Comment: 3.3 - 4.4 LOW RISK 4.4 - 7.1 AVERAGE RISK 7.1 - 11.0 MODERATE RISK >11.0 HIGH RISK Performed By: #### L IPID, TSH #### [facility] [address] [place] [address] Dr. Herve Machado Cholesterol [Mass/Vol] 223 mg/dL Critically high <=200 [facility] Comment on above: Performed By: #### L IPID, TSH #### [facility] [address] [place] [address] Dr. Herve Machado Cholesterol in HDL [Mass/Vol] 53 mg/dL Normal 40-60 [facility] Comment on above: Performed By: #### L IPID, TSH #### [facility] [address] [place] [address] Dr. Herve Machado Cholesterol in LDL [Mass/Vol] 152.2 mg/dL Normal [facility] Comment on above: Performed By: #### L IPID, TSH #### [facility] [address] [place] [address] Dr. Herve Machado Cholesterol.total/Cholest rivas in HDL [Mass ratio] 4.2 {ratio} Normal [facility] Comment on above: Performed By: #### L IPID, TSH #### [facility] [address] [address] [address] Herve Machado HDL NORMAL > or = 60 mg/dl - LOW CARDIOVASCULAR RISK <40 mg/dl - HIGH CARDIOVASCULAR RISK Normal [facility] Comment on above: Performed By: #### L IPID, TSH #### [facility] [address] [address] [address] Herve Machado LDL CALC NORMAL SEE BELOW Normal [facility] Comment on above: Result Comment: <100 mg/dl OPTIMAL 100 - 129 mg/dl NEAR OR ABOVE OPTIMAL 130 - 159 mg/dl BORDERLINE HIGH 160 - 189 mg/dl HIGH >190 mg/dl VERY HIGH Performed By: #### L IPID, TSH #### [facility] [address] [place] [address] Dr. Herve Machado Triglyceride [Mass/Vol] 89 mg/dL Normal <=150 [facility] Comment on above: Performed By: #### L IPID, TSH #### [facility] [address] [address] [address] Herve Machado VLDL CALC 17.8 mg/dL Normal [facility] Comment on above: Performed By: #### L IPID, TSH #### [facility] [address] [place] [address] Dr. Herve Machado TSHon 09-28-2021 TSH 1.423 uIU/mL Normal 0.358-3.740 [facility] Comment on above: Performed By: #### T SH, FT3 #### [facility] [address] [place] [address] Dr. Herve Machado TSH RANGE SEE BELOW Normal [facility] Comment on above: Result Comment: <0.3 4 UIU/ml HYPERTHYROID 0.34-5.60 UIU/ml EUTHYROID >5.60 UIU/ml HYPOTHYROID Performed By: #### T SH, FT3 #### [facility] [address] [place] [address] Dr. Herve Machado Social History Date Type Detail Facility Start: 07-10-2016 End: 08-02-2022 Tobacco smoking status Never smoked tobacco (finding) [facility] Start: 1955 Sex Assigned At Female [facility] Tobacco smoking status Never [facility] Sex Assigned At Female [facility] Evaluation + Plan note Note Date & Type Note Facility Evaluation + Plan note No data available for this section [facility] Evaluation note Note Date & Type Note Facility Evaluation note No assessment information availa [facility] Work Phone: Hospital Discharge instructions Note Date & Type Note Facility Hospital Discharge instructions No data available for this section [facility] Progress note Note Date & Type Note Facility Progress note No data available for this section [facility] Summary Purpose Family History No Family History Records Found Relationship Condition Age at Onset Recorded Date/T deborah father Diabetes mellitus Unknown Hypertension Unknown Unknown family member Unknown Not Specified Unknown History of stroke Unknown Diabetes mellitus Unknown Advance Directives No Advanced Directives Records Found Advance Directive Response Recorded Date/ Time Advance Directives No August 04, 019 12:23pm Advance Directive Response Recorded Date/ Time Advance Directives No August 04, 019 1:23pm Chief Complaint and Reason for Visit Chief Complaint E83.52 E21.3 Additional Source Comments INFORMATION SOURCE (unrecogn ized section and content) DATE CREATED AUTHOR 10/24/[address] [facility] DATE CREATED AUTHOR AUTHOR'S ORGANIZ ATION 09/02/2022 [facility] DATE CREATED AUTHOR AUTHOR'S ORGANIZ ATION 09/04/2022 [facility] DATE CREATED AUTHOR AUTHOR'S ORGANIZ ATION 06/07/2023 [facility] DATE CREATED AUTHOR AUTHOR'S ORGANIZ ATION 07/23/2023 [facility] DATE CREATED AUTHOR AUTHOR'S ORGANIZ ATION 10/02/2023 [facility] Patient Care team informatio n (unrecognized section and content) Team Status: Active Member Role Status Dates Stella Nieto Primary Care Provider Active Team Status: Inactive Member Role Status Dates Stella Nieto Primary Care Provider Active Jean Quick MD Attending Provider Active Team Status: Inactive Member Role Status Dates Stella Niteo Primary Care Provider Active Sta rt: September 25, 2023 End: September 25, 2023 Jean Quick MD Attending Provider Active Leandro rt: September 25, 2023 End: September 25, 2023 Goals (unrecognized section and content) Goals may [...] BE BASED ON THE PRIMARY CLINICAL RECORDS. [facility] [employer] provides no warranty or guarantee of the accuracy or completeness of information in this document.
[2023-10-08 13:16] LABS: Thyroid Stimulating Hormone 0.634 uIU/mL (0.358-3.740)
[2023-10-08 15:10] LABS: Free T4 1.75 ng/dL (0.76-1.46)
== END 2023-10-08 11:28 | disposition home or self-care (01) ==
PROVIDERS: PCP Nurse Practitioner; Visit Provider Nurse Practitioner
DX: E03.9 Hypothyroidism, unspecified (principal)
CPT/HCPCS: 36415; 84439; 84443

== ENCOUNTER 2023-12-01 09:08 | Outpatient (OUT) | payer MEDICARE, SELFPAY ==
--- OUTSIDE RECORDS SUMMARY | 2023-12-01 09:29 | XMS_ITS | CCD ---
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 Role Phone PHYSICIAN, DEFAULT Unavailable Unavailable PHYSICIAN, DEFAULT Unavailable Unavailable PHYSICIAN, DEFAULT Unavailable Unavailable PHYSICIAN, DEFAULT Unavailable Unavailable AICSTELLA SHERIDAN Primary Care Physician LAUREL TELEPHONER STELLA Attending Unavailable AICHHOLZ, TELEPHONER STELLA Primary Care Unavailable AICHHOLZ, TELEPHONER STELLA Admitting Unavailable AICHHOLZ, TELEPHONER STELLA Consulting Unavailable AICHHOLZ, TELEPHONER STELLA Admitting Unavailable AICHHOLZ, TELEPHONER STELLA Attending Unavailable AICHHOLZ, TELEPHONER STELLA Primary Care Unavailable AICHHOLZ, TELEPHONER STELLA Consulting Unavailable DR GEORGINA HATCH Consulting Unavailable AICHHOLZ, TELEPHONER STELLA Attending Unavailable AICHHOLZ, TELEPHONER STELLA Primary Care Unavailable AICHHOLZ, TELEPHONER STELLA Admitting Unavailable AICHHOLZ, TELEPHONER STELLA Consulting Unavailable AICHHOLZ, TELEPHONER STELLA Attending Unavailable AICHHOLZ, TELEPHONER STELLA Primary Care Unavailable AICHHOLZ, TELEPHONER STELLA Referring Unavailable AICHHOLZ, TELEPHONER STELLA Admitting Unavailable AICHHOLZ, TELEPHONER STELLA Consulting Unavailable DR LIZY MEADE V Consulting Unavailable AICHHOLZ, TELEPHONER STELLA Primary Care Unavailable AICHHOLZ, TELEPHONER STELLA Attending Unavailable AICHHOLZ, TELEPHONER STELLA Admitting Unavailable AICHHOLZ, TELEPHONER STELLA Consulting Unavailable AICHHOLZ, TELEPHONER STELLA Consulting Unavailable AICHHOLZ, TELEPHONER STELLA Primary Care Unavailable AICHHOLZ, TELEPHONER STELLA Attending Unavailable AICHHOLZ, TELEPHONER STELLA Admitting Unavailable AICHHOLZ, TELEPHONER STELLA Consulting Unavailable AICHHOLZ, TELEPHONER STELLA Primary Care Unavailable AICHHOLZ, TELEPHONER STELLA Attending Unavailable AICHHOLZ, TELEPHONER STELLA Admitting Unavailable AICHHOLZ, TELEPHONER STELLA Consulting Unavailable AICHHOLZ, TELEPHONER STELLA Admitting Unavailable AICHHOLZ, TELEPHONER STELLA Primary Care Unavailable AICHHOLZ, TELEPHONER STELLA Attending Unavailable AICHHOLZ, TELEPHONER STELLA Consulting Unavailable AICHHOLZ, TELEPHONER STELLA Primary Care Unavailable AICHHOLZ, TELEPHONER STELLA Attending Unavailable AICHHOLZ, TELEPHONER STELLA Admitting Unavailable Melchor, Faye A Attending Unavailable Melchor, Faye A Attending Unavailable SALAM, Dias Referring Unavailable SALAM, Dias Attending Unavailable SALAM, Dias Attending Unavailable SALAM, Dias Admitting Unavailable [place] Stella J Primary Care Provider MD Jean Quick Attending Provider JEAN QUICK Referring Unavailable VANESSAMONICA WHITMANA J Primary Care Unavailable Monica Nietoa J Primary Care Provider MD Jean Quick Attending Provider AICFATIMAH STELLA Attending Unavailable ANAHHOLKassandra, STELLA Attending Unavailable AICHHOLZ, STELLA Attending Unavailable AICHHOLKassandra, STELLA Attending Unavailable Jean Quick Attending Unavailable Jean Quick Admitting Unavailable Van[place]as[place]Stella J Primary Care Unavailable Monica Nietoa J Primary Care Unavailable Jean Quick Attending Unavailable Jean Quick Admitting Unavailable Allergies Allergy Classification Reported Allergen(s) Allergy Type Date of Onset Reaction(s) Facility (4 sources) Penicillins; Translations: [penicillins] Drug allergy 09-18-2013 unknown [facility] Medications Current Medications Medication Drug Class(es) Dates Sig (Normalized) Sig (Original) alendronic acid 35 mg oral tablet (1 source) Bisphosphonate Start: 03-24-2017 alendronate 35 mg oral tablet 35 mg = 1 tab(s), Oral, Refills(s) 0, Other (see comment) Start Date: 03/24/17 Status: Ordered {1 (Ascorbic Acid 7540 MG / POLYETHYLENE GLYCOL 3350 22488 MG / Potassium Chloride 1200 MG / Sodium Ascorbate 25977 MG / Sodium Chloride 3200 MG Powder for Oral Solution) / 1 (POLYETHYLENE GLYCOL 3350 685137 MG / Potassium Chloride 1000 MG / [...] Chronic Other nutritional; endocrine; and metabolic disorders (2 sources) Hypercalcemia; Translations: [Hypercalcemia] Onset: 06-05-2023 Chronic Other [...] Albumin BCG dye [Mass/Vol] 4.2 g/dL 3.5-5.7 [facility] Calcium [Mass/volume] in Ser um or PlasmaOrdered By: Jean Quick on 09-25-2023 Calcium [Mass/Vol] 10.3 mg/dL Normal 8.6-10.3 [facility] Comment on above: Performed By: #### V [id number], MG, PTH, RENAL #### [facility] [address] [place] [address] [place] Carbon dioxide, total [Moles /volume] in Serum or PlasmaOrdered By: Jean Quick on 09-25-2023 CO2 [Moles/Vol] 29.4 mmol/L Normal 21.0-31.0 [facility] Comment on above: Performed By: #### V [id number], MG, PTH, RENAL #### [facility] [address] [place] [address] [place] Chloride [Moles/volume] in S rosalind or PlasmaOrdered By: Jean Quick on 09-25-2023 Chloride [Moles/Vol] 103 mmol/L Normal 98-107 [facility] Comment on above: Performed By: #### V [id number], MG, PTH, RENAL #### [facility] [address] [place] [address] [place] Creatinine [Mass/volume] in Serum or PlasmaOrdered By: Jean Quick on 09-25-2023 Creatinine [Mass/Vol] 0.75 mg/dL Normal 0.60-1.20 [facility] Comment on above: Performed By: #### V [id number], MG, PTH, RENAL #### [facility] [address] Glucose [Mass/volume] in Ser um or PlasmaOrdered By: Jean Quick on 09-25-2023 Glucose [Mass/Vol] 108 mg/dL High 70-100 [facility] Comment on above: ADA recommended refe rence rangeRandom Glucose Reference Range is dependent on time and content of last meal. Glucose of more than 200 mg/dL in a nonstressed, ambulatory subject supports the diagnosis of Diabetes Mellitus. Result Comment: [place] om Glucose Reference Range is dependent on time and content of last meal. Glucose of more than 200 mg/dL in a nonstressed, ambulatory subject supports the diagnosis of Diabetes Mellitus. ADA recommended reference range Performed By: #### V [id number], MG, PTH, RENAL #### [facility] [address] Magnesium [Mass/volume] in S rosalind or PlasmaOrdered By: Jean Quick on 09-25-2023 Magnesium [Mass/Vol] 1.8 mg/dL Low 1.9-2.7 [facility] Comment on above: Performed By: #### V [id number], MG, PTH, RENAL #### [facility] [address] [place] [address] No Panel InformationOrdered By: Jean Quick on 09-25-2023 Estimated GFR (CKD-EPI) > 60.0 mL/Min [facility] Creatinine Clearance (Chem N/A [facility] Parathyrin.intact [Mass/volu me] in Serum or PlasmaOrdered By: Jean Quick on 09-25-2023 Parathyrin.intact [Mass/Vol] 74.4 pg/mL [facility] Parathyroid Hormone Intacton 09-25-2023 Parathyroid Hormone Intact 74.4 pg/mL Normal [facility] Comment on above: Result Comment: PERF ORMED BY: [place] [address] PATHOLOGIST NARCOTICS INVESTIGATOR EZEQUIEL FIGUEREDO M.D. Performed By: #### V [id number], MG, PTH, RENAL #### [address] Phosphate [Mass/volume] in S rosalind or PlasmaOrdered By: Jean Quick on 09-25-2023 Phosphate [Mass/Vol] 3.3 mg/dL Normal 2.5-4.5 [facility] Comment on above: Performed By: #### V [id number], MG, PTH, RENAL #### [address] Potassium [Moles/volume] in Serum or PlasmaOrdered By: Jean Quick on 09-25-2023 Potassium [Moles/Vol] 4.3 mmol/L Normal 3.5-5.1 [facility] Comment on above: Performed By: #### V [id number], MG, PTH, RENAL #### [address] Renal Function Panelon 09-24 Albumin [Mass/Vol] 4.2 g/dL Normal 3.5-5.7 [facility] Comment on above: Performed By: #### V [id number], MG, PTH, RENAL #### [address] GFR/1.73 sq M.predicted MDRD (S/P/Bld) [Vol rate/Area] mL/min/{1.73_m2} Normal [facility] Comment on above: Performed By: #### V [id number], MG, PTH, RENAL #### [address] Serum or plasma anion gap de terminationOrdered By: Jean Quick on 09-25-2023 Anion gap [Moles/Vol] 11.9 mmol/L Normal 6.0-15.0 [facility] Comment on above: Performed By: #### V [id number], MG, PTH, RENAL #### [facility] [address] [place] [id number] [place] Sodium [Moles/volume] in Ser um or PlasmaOrdered By: Jean Quick on 09-25-2023 Sodium [Moles/Vol] 140 mmol/L Normal 136-145 [facility] Comment on above: Performed By: #### V [id number], MG, PTH, RENAL #### [facility] [address] Urea nitrogen [Mass/volume] in Serum or PlasmaOrdered By: Jean Quick on 09-25-2023 Urea nitrogen [Mass/Vol] 11 mg/dL Normal 7-25 [facility] Comment on above: Performed By: #### V [id number], MG, PTH, RENAL #### [facility] [address] [place] [id number] [facility] Vitamin D 25 Hydroxy Totalon 09-25-2023 Vitamin D 25 Hydroxy Total 36.4 ng/mL Normal 30-100 [facility] Comment on above: Result Comment: JUAN PABLO MIN D STATUS 25(OH)VITAMIN D RANGE (ng/mL) Deficient <20 Insufficient 20 to <30 Sufficient 30 to 100 Reference: Verito MF,Magali NC, Yumiko SCHWARZ, et al. Evaluation,treatment, and prevention of vitamin D deficiency; an Endocrine Society clinical practice guideline. JCEM. 2010; 96(7):1911-30. PERFORMED BY: [place] [address] PATHOLOGIST NARCOTICS INVESTIGATOR EZEQUIEL FIGUEREDO M.D. Performed By: #### V [id number], MG, PTH, RENAL #### [facility] [address] [place] [id number] [facility] Vitamin D+Metabolites [Mass/ volume] in Serum or PlasmaOrdered By: Jean Quick on 09-25-2023 Vitamin D+Metabolites [Mass/Vol] 36.4 ng/mL 30-100 [facility] Comment on above: VITAMIN D STATUS 25( [place])VITAMIN D RANGE (ng/mL) Deficient <20 Insufficient 20 to <30Sufficient 30 to 100Reference: Verito MF,Magali NC, Yumiko SCHWARZ, et al. Evaluation,treatment, and prevention of vitamin D deficiency; an Endocrine Society clinical practice guideline. JCEM. 2010; 96(7):1911-30. CALCIUMon 06-05-2023 Calcium [Mass/Vol] 10.3 mg/dL Normal 8.5-10.5 [facility] Comment on above: Performed By: #### 1 7861-6, 14079-6, 2730-8, 97485-3 #### [facility] ([id number]) [address], [address] [place] [address] MAGNESIUMon 06-05-2023 Magnesium [Mass/Vol] 1.7 mg/dL Low 1.8-2.6 [facility] Comment on above: Performed By: #### 1 7861-6, 30674-9, 2730-8, 16760-7 #### [facility] ([id number]) [address], [address] [place] [address] Parathyrin.intact [Mass/Vol] on 06-05-2023 PTH INTACT 71 pg/mL Normal 12-88 [place] Comment on above: Performed By: #### 1 7861-6, 83440-0, 2730-8, 76451-3 #### [facility] ([id number]) [address], [address] [place] [address] RENAL PANELon 06-05-2023 Albumin [Mass/Vol] 4.3 g/dL Normal 3.2-5.3 [facility] Comment on above: Performed By: #### R ENAL #### [facility] ([id number]) [address], [address] [place] [address] Anion gap [Moles/Vol] 8 mmol/L Normal 5-15 [facility] Comment on above: Performed By: #### R ENAL #### [facility] ([id number]) [address], [address] [place] [address] Calcium [Mass/Vol] 10.6 mg/dL High 8.5-10.5 [facility] Comment on above: Performed By: #### R ENAL #### [facility] ([id number]) [address], [address] [place] [address] Chloride [Moles/Vol] 98 mmol/L Normal 98-109 [facility] Comment on above: Performed By: #### R ENAL #### [facility] ([id number]) [address], [address] [place] [address] CO2 [Moles/Vol] 31 mmol/L Normal 22-32 [place] Comment on above: Performed By: #### R ENAL #### [facility] ([id number]) [address], [address] [place] [address] Creatinine [Mass/Vol] 0.82 mg/dL Normal 0.40-1.00 [facility] Comment on above: Result Comment: METH OD TRACEABLE TO IDMS STANDARD Performed By: #### R ENAL #### [facility] ([id number]) [address], [address] [place] [address] GFR/1.73 sq M.predicted among non-blacks MDRD (S/P/Bld) [Vol rate/Area] 77 mL/min/{1.73_m2} Normal >59 [place] Comment on above: Result Comment: Reported eGFR is based on the CKD-EPI 1 equation that does not use a race coefficient. Performed By: #### R ENAL #### [facility] ([id number]) [address], [address] [place] [address] Glucose [Mass/Vol] 156 mg/dL High 65-99 [facility] Comment on above: Performed By: #### R ENAL #### [facility] ([id number]) [address], [address] [place] [address] Phosphate [Mass/Vol] 3.2 mg/dL Normal 2.4-4.9 [facility] Comment on above: Performed By: #### R ENAL #### [facility] ([id number]) [address], [address] [place] [address] Potassium [Moles/Vol] 4.2 mmol/L Normal 3.5-5.0 [facility] Comment on above: Performed By: #### R ENAL #### [facility] ([id number]) [address], [address] [place] [address] Sodium [Moles/Vol] 137 mmol/L Normal 134-146 [facility] Comment on above: Performed By: #### R ENAL #### [facility] ([id number]) [address], [address] [place] [address] Urea nitrogen [Mass/Vol] 11 mg/dL Normal 5-27 [place] Comment on above: Performed By: #### R ENAL #### [facility] ([id number]) [address], [address] [place] [address] Vitamin D+Metabolites [Mass/ Vol]on 06-05-2023 VITAMIN D 25 HYD TOT 36.7 ng/mL Normal 30-100 [facility] Comment on above: Result Comment: Vitamin D status 25 [place] Vitamin D Deficiency <20 ng/mL Insufficiency 20-29 ng/mL Sufficiency 30-100 ng/mL Toxicity >100 ng/mL NOTE: A pediatric reference range has not been established by the office machine punch operator of this kit. The [place] [employer] recommends a Vitamin D level of = or >20ng/mL in infants and children. Performed By: #### 1 7861-6, 16373-8, 2731-8, 20066-0 #### [facility] ([id number]) [address] [facility], [address] [place] [address] Albumin [Mass/volume] in Ser um or Plasma by Bromocresol green (BCG) dye binding methoOrdered By: Jean Quick on 03-26-2023 Albumin BCG dye [Mass/Vol] 4.3 g/dL 3.5-5.7 [facility] Calcium [Mass/volume] in Ser um or PlasmaOrdered By: Jean Quick on 03-26-2023 Calcium [Mass/Vol] 10.5 mg/dL High 8.6-10.3 [facility] Comment on above: Performed By: #### R ENAL, MG, PTH, [id number] #### [facility] [address] [place] [address] [place] Carbon dioxide, total [Moles /volume] in Serum or PlasmaOrdered By: Jean Quick on 03-26-2023 CO2 [Moles/Vol] 29.4 mmol/L Normal 21.0-31.0 [facility] Comment on above: Performed By: #### R ENAL, MG, PTH, [id number] #### [facility] [address] [place] [address] [place] Chloride [Moles/volume] in S rosalind or PlasmaOrdered By: Jean Quick on 03-26-2023 Chloride [Moles/Vol] 104 mmol/L Normal 98-107 [facility] Comment on above: Performed By: #### R ENAL, MG, PTH, [id number] #### [facility] [address] [place] [id number] [place] Creatinine [Mass/volume] in Serum or PlasmaOrdered By: Jean Qiuck on 03-26-2023 Creatinine [Mass/Vol] 0.79 mg/dL Normal 0.60-1.20 [facility] Comment on above: Performed By: #### R ENAL, MG, PTH, [id number] #### [facility] [address] [place] [id number] [place] Glucose [Mass/volume] in Ser um or PlasmaOrdered By: Jean Quick on 03-26-2023 Glucose [Mass/Vol] 136 mg/dL High 70-100 [facility] Comment on above: ADA recommended refe rence rangeRandom Glucose Reference Range is dependent on time and content of last meal. Glucose of more than 200 mg/dL in a nonstressed, ambulatory subject supports the diagnosis of Diabetes Mellitus. Result Comment: [place] om Glucose Reference Range is dependent on time and content of last meal. Glucose of more than 200 mg/dL in a nonstressed, ambulatory subject supports the diagnosis of Diabetes Mellitus. ADA recommended reference range Performed By: #### R ENAL, MG, PTH, [id number] #### [facility] [address] [place] [address] Magnesium [Mass/volume] in S rosalind or PlasmaOrdered By: Jean Quick on 03-26-2023 Magnesium [Mass/Vol] 1.6 mg/dL Low 1.9-2.7 [facility] Comment on above: Performed By: #### R ENAL, MG, PTH, [id number] #### [facility] [address] [place] [address] No Panel InformationOrdered By: Jean Quick on 03-26-2023 Estimated GFR (CKD-EPI) > 60.0 mL/Min [facility] Creatinine Clearance (Chem N/A [facility] Parathyrin.intact [Mass/volu me] in Serum or PlasmaOrdered By: Jean Quick on 03-26-2023 Parathyrin.intact [Mass/Vol] 105.1 pg/mL [facility] Parathyroid Hormone Intacton 03-26-2023 Parathyroid Hormone Intact 105.1 pg/mL High [facility] Comment on above: Result Comment: PERF ORMED BY: [place] [address] PATHOLOGIST NARCOTICS INVESTIGATOR EZEQUIEL FIGUEREDO M.D. Performed By: #### R ENAL, MG, PTH, [id number] #### [facility] [address] [place] [address] Phosphate [Mass/volume] in S rosalind or PlasmaOrdered By: Jean Quick on 03-26-2023 Phosphate [Mass/Vol] 3.1 mg/dL Normal 2.5-4.5 [facility] Comment on above: Performed By: #### R ENAL, MG, PTH, [id number] #### [facility] [address] Potassium [Moles/volume] in Serum or PlasmaOrdered By: Jean Quick on 03-26-2023 Potassium [Moles/Vol] 4.8 mmol/L Normal 3.5-5.1 [facility] Comment on above: Performed By: #### R ENAL, MG, PTH, [id number] #### [address] Renal Function Panelon 03-26 Albumin [Mass/Vol] 4.3 g/dL Normal 3.5-5.7 [facility] Comment on above: Performed By: #### R ENAL, MG, PTH, [id number] #### [place] [address] [place] GFR/1.73 sq M.predicted MDRD (S/P/Bld) [Vol rate/Area] mL/min/{1.73_m2} Normal [facility] Comment on above: Performed By: #### R ENAL, MG, PTH, [id number] #### [address] Serum or plasma anion gap de terminationOrdered By: Jean Quick on 03-26-2023 Anion gap [Moles/Vol] 11.4 mmol/L Normal 6.0-15.0 [facility] Comment on above: Performed By: #### R ENAL, MG, PTH, [id number] #### [address] Sodium [Moles/volume] in Ser um or PlasmaOrdered By: Jean Quick on 03-26-2023 Sodium [Moles/Vol] 140 mmol/L Normal 136-145 [facility] Comment on above: Performed By: #### R ENAL, MG, PTH, [id number] #### [address] Urea nitrogen [Mass/volume] in Serum or PlasmaOrdered By: Jean Quick on 03-26-2023 Urea nitrogen [Mass/Vol] 8 mg/dL Normal 7-25 [facility] Comment on above: Performed By: #### R ENAL, MG, PTH, [id number] #### [address] Vitamin D 25 Hydroxy Totalon 03-26-2023 Vitamin D 25 Hydroxy Total 38.1 ng/mL Normal 30-100 [facility] Comment on above: Result Comment: JUAN PABLO MIN D STATUS 25(OH)VITAMIN D RANGE (ng/mL) Deficient <20 Insufficient 20 to <30 Sufficient 30 to 100 Reference: Magali Oliveros, Yumiko SCHWARZ, et al. Evaluation,treatment, and prevention of vitamin D deficiency; an Endocrine Society clinical practice guideline. JCEM. 2010; 96(7):1911-30. PERFORMED BY: [place] [address] PATHOLOGIST NARCOTICS INVESTIGATOR EZEQUIEL FIGUEREDO M.D. Performed By: #### R ENAL, MG, PTH, [id number] #### [address] Vitamin D+Metabolites [Mass/ volume] in Serum or PlasmaOrdered By: Jean Quick on 03-26-2023 Vitamin D+Metabolites [Mass/Vol] 38.1 ng/mL 30-100 [facility] Comment on above: VITAMIN D STATUS 25( [place])VITAMIN D RANGE (ng/mL) Deficient <20 Insufficient 20 to <30Sufficient 30 to 100Reference: Magali Oliveros, Yumiko SCHWARZ, et al. Evaluation,treatment, and prevention of vitamin D deficiency; an Endocrine Society clinical practice guideline. JCEM. 2010; 96(7):1911-30. Reminderson 09-03-2022 Reminders --- From: [facility] To: [facility] - Reminders/Recalls; Sent: 09/03/2022 18:05:18 EDT Show up: 07/28/2029 18:05:00 EDT Subject: Ambulatory Reminder Due Date/Time: 08/27/2029 18:05:00 EDT Reminder/Recall Repeat colonoscopy in 7 years(2029) due to tubular adenoma Normal [facility] XR DEXA BONE DENSITYon 09-02 XR [...] by: GEORGINA HATCH Date: 2022-09-02 13:17 Normal [facility] Outside Colonoscopyon 2022 Outside Colonoscopy [id number]:127 Normal [facility] Physician Orderon 08-27-2022 Physician Order [id number]:127 Normal [facility] CULTURE URINEon 08-12-2022 CULTURE URINE Culture Observations: NO GROWTH. Normal [facility] Comment on above: Performed By: #### T ASIA, FT3 #### [facility] [address] [place] [address] Dr. Herve Machado UA RANDOM W/MICROSCOPICon BACTERIA NONE SEEN Normal NONE SEEN [facility] Comment on above: Performed By: #### T ASIA, FT3 #### [facility] [address] [place] [address] Dr. Herve Machado Bilirubin Ql (U) Negative Normal NEGATIVE [facility] Comment on above: Performed By: #### T SH, FT3 #### [facility] [address] [place] [address] Dr. Herve Machado CAST NONE SEEN Normal NONE SEEN [facility] Comment on above: Performed By: #### T SH, FT3 #### [facility] [address] [place] [address] Dr. Herve Machado Clarity (U) CLEAR Normal CLEAR [facility] Comment on above: Performed By: #### T , FT3 #### [facility] [address] [place] [address] Dr. Herve Machado Color (U) LT. YELLOW Normal YELLOW [facility] Comment on above: Performed By: #### T , FT3 #### [facility] [address] [place] [address] Dr. Herve Machado Crystals LM Nom (Urine sed) NONE SEEN Normal NONE SEEN [facility] Comment on above: Performed By: #### T , FT3 #### [facility] [address] [place] [address] Dr. Herve Machado Epithelial cells LM Ql (Urine sed) RARE Normal NONE SEEN /RARE [facility] Comment on above: Performed By: #### T , FT3 #### [facility] [address] [place] [address] Dr. Herve Machado Glucose Ql (U) 500 mg/dl Abnormal NEGATIVE [facility] Comment on above: Performed By: #### T , FT3 #### [facility] [address] [place] [address] Dr. Herve Machado Hemoglobin Ql (U) Negative Normal NEGATIVE [facility] Comment on above: Performed By: #### T SH, FT3 #### [facility] [address] [place] [address] Dr. Herve Machado Ketones Ql (U) Negative Normal NEGATIVE [facility] Comment on above: Performed By: #### T SH, FT3 #### [facility] [address] [place] [address] Dr. Herve Machado LEUKOCYTES Negative Normal NEGATIVE [facility] Comment on above: Performed By: #### T SH, FT3 #### [facility] [address] [place] [address] Dr. Herve Machado MUCOUS NONE SEEN Normal NONE SEEN [facility] Comment on above: Performed By: #### T SH, FT3 #### [facility] [address] [place] [address] Dr. Herve Machado Nitrite Ql (U) Negative Normal NEGATIVE [facility] Comment on above: Performed By: #### T , FT3 #### [facility] [address] [place] [address] Dr. Herve Machado pH (U) 5.0 [pH] Normal 5-9 [facility] Comment on above: Performed By: #### T , FT3 #### [facility] [address] [place] [address] Dr. Herve Machado RBC 0-2 Normal 0-2 [facility] Comment on above: Performed By: #### T , FT3 #### [facility] [address] [place] [address] Dr. Herve Machado SPEC GRAVITY 1.020 Normal 1.005-<=1.025 [facility] Comment on above: Performed By: #### T , FT3 #### [facility] [address] [place] [address] Dr. Herve Machado UA PROTEIN Negative Normal NEGATIVE/ TRACE [facility] Comment on above: Performed By: #### T , FT3 #### [facility] [address] [place] [address] Dr. Herve Machado Urobilinogen Qn (U) 0.2 {Connie'U}/dL Normal 0.2 - 1. 0 [facility] Comment on above: Performed By: #### T SH, FT3 #### [facility] [address] [place] [address] Dr. Herve Machado WBC NONE SEEN Normal NONE SEEN [facility] Comment on above: Performed By: #### T , FT3 #### [facility] [address] [address] [address] Herve Machado Consent for Procedure/Surger yon 08-05-2022 Consent for Procedure/Surgery [id number]:[id number] Normal [facility] Ambulatory Visit Summaryon 0 08-02-2022 Ambulatory [...] See instructions Prior to colonoscopy. Pickup at [facility]3 Unchanged alendronate (alendronate 35 mg oral tablet) [...] physician if questions or concerns Pharmacy Information [facility] 1429: [address] [place], [place] [id number] [phone] Allergies penicillins (unknown) Problems Ongoing - Any [...] including vitamins, herbs, eye drops, creams, and rocf-kax-sotpbrd medicines. ? Any problems you or family [...] anything starting (more content not included)... Normal [facility] Gastroenterology Office/Clin ic Noteon 08-02-2022 Gastroenterology Office/Clinic Note Chief Complaint 5 year recall HPI Staff This is a 67 year old female who presents today for a 5 year recall. History of Present Illness Patient is a 67-year-old female who presents for colonoscopy-Patien t referred from her PCP?Stella Nieto, ARLEEN. Patient had previous colonoscopy 03/[address] [...] in 2013 she had previous colonoscopy in [place], [place] that showed polyps- no record to [...] 1 EA, Refill(s) 0, Prior to colonoscopy., [facility], 139.7, cm, 08/02/22 [...] 08/02/2022 Immunizations Vaccine Date Status SARS-CoV-2 (COVID-19) [id number] 04/23/2022 Recorded SARSCoV2 mRNA(tozinamer-tri s-sucros) vac 07/30/2021 [...] Recorded influenza, whole 02/06/2009 Recorded Normal [facility] Comment on above: Result Comment: Elec tronically Signed By: Melchor BACON, Faye Devlin\.br\Date and Time Signed: 08/02/22 10:38 EDT Patient Educationon 08-03-19 23 Patient Education Radiology Colonoscopy, Adult A colonoscopy [...] including vitamins, herbs, eye drops, creams, and qncc-ere-bgujcwb medicines. ? Any problems you or family [...] air t (more content not included)... Normal [facility] Provider Letteron 07-16-2022 Provider Letter July 16, 2022 EMILY MANUEL [address] [place] [id number] EMILY MANUEL 1955 Dear Emily, We have [...] your prompt attention to this matter. Sincerely, [facility]. Normal [facility] CBC AUTO DIFFon 07-15-2022 BASO # 0.0 103/ul Normal 0.0-0.1 [facility] Comment on above: Performed By: #### C BC #### [facility] [address] [address] [address] Herve Machado Basophils/100 WBC (Bld) 0.4 % Normal 0.2-2.0 [facility] Comment on above: Performed By: #### C BC #### [facility] [address] [place] [address] Dr. Herve Machado EO # 0.2 103/ul Normal 0.0-0.7 [facility] Comment on above: Performed By: #### C BC #### [facility] [address] [place] [address] Dr. Herve Machado Eosinophils/100 WBC (Bld) 2.7 % Normal 0.9-7.0 [facility] Comment on above: Performed By: #### C BC #### [facility] [address] [place] [address] Dr. Herve Machado Erythrocyte distribution width (RBC) [Ratio] 12.3 % Normal 11.0-15.0 [facility] Comment on above: Performed By: #### C BC #### [facility] [address] [place] [address] Dr. Herve Machado Hematocrit (Bld) [Volume fraction] 43.8 % Normal 36.0-48.0 [facility] Comment on above: Performed By: #### C BC #### [facility] [address] [place] [address] Dr. Herve Machado Hemoglobin (Bld) [Mass/Vol] 14.1 g/dL Normal 12.0-16.0 [facility] Comment on above: Performed By: #### C BC #### [facility] [address] [place] [address] Dr. Herve Machado IG # 0.01 10e3/ul Normal 0.00-0.03 [facility] Comment on above: Performed By: #### C BC #### [facility] [address] [place] [address] Dr. Herve Machado IG % 0.1 % Normal 0.0-0.5 [facility] Comment on above: Performed By: #### C BC #### [facility] [address] [place] [address] Dr. Herve Machado LYMPH # 1.7 103/ul Normal 1.2-3.8 [facility] Comment on above: Performed By: #### C BC #### [facility] [address] [place] [address] Dr. Herve Machado Lymphocytes/100 WBC (Bld) 23.6 % Normal 20.5-60.0 [facility] Comment on above: Performed By: #### C BC #### [facility] [address] [place] [address] Dr. Herve Machado MANUAL DIFF REQ NO Normal [facility] Comment on above: Performed By: #### C BC #### [facility] [address] [place] [address] Dr. Herve Machado MCH (RBC) [Entitic mass] 31.1 pg Normal 26.7-34.0 [facility] Comment on above: Performed By: #### C BC #### [facility] [address] [place] [address] Dr. Herve Machado MCHC (RBC) [Mass/Vol] 32.2 g/dL Normal 29.9-35.2 [facility] Comment on above: Performed By: #### C BC #### [facility] [address] [place] [address] Dr. Herve Machado MCV (RBC) [Entitic vol] 96.5 fL Normal 81.0-99.0 [facility] Comment on above: Performed By: #### C BC #### [facility] [address] [place] [address] Dr. Herve Machado MONO # 0.4 103/ul Normal 0.3-0.8 [facility] Comment on above: Performed By: #### C BC #### [facility] [address] [place] [address] Dr. Herve Machado Monocytes/100 WBC (Bld) 5.8 % Normal 1.7-12.0 [facility] Comment on above: Performed By: #### C BC #### [facility] [address] [place] [address] Dr. Herve Machado NEUT # 4.9 103/ul Normal 1.4-6.5 [facility] Comment on above: Performed By: #### C BC #### [facility] [address] [place] [address] Dr. Herve Machado Neutrophils/100 WBC (Bld) 67.4 % Normal 43.0-75.0 [facility] Comment on above: Performed By: #### C BC #### [facility] [address] [place] [address] Dr. Herve Machado Platelet mean volume (Bld) [Entitic vol] 9.9 fL Normal 9.5-13.5 [facility] Comment on above: Performed By: #### C BC #### [facility] [address] [place] [address] Dr. Herve Machado PLT 229 103/ul Normal 150-450 [facility] Comment on above: Performed By: #### C BC #### [facility] [address] [place] [address] Dr. Herve Machado RBC 4.54 106/ul Normal 4.20-5.40 [facility] Comment on above: Performed By: #### C BC #### [facility] [address] [place] [address] Dr. Herve Machado WBC 7.3 103/ul Normal 4.0-11.0 [facility] Comment on above: Performed By: #### C BC #### [facility] [address] [place] [address] Dr. Herve Machado GLYCOHEMOGLOBIN A1Con 2022 ADA RECOMMENDATION SEE BELOW Normal [facility] Comment on above: Result Comment: ADA RECOMMENDED LIMIT 4.0 - 6.0 ADA THERAPEUTIC TARGET < 7.0 ACTION SUGGESTED > 7.0 Performed By: #### T SH, FT3 #### [facility] [address] [place] [address] Dr. Herve Machado Glucose [Mass/Vol] 160 mg/dL Normal [facility] Comment on above: Performed By: #### T SH, FT3 #### [facility] [address] [place] [address] Dr. Herve Machado HbA1c (Bld) [Mass fraction] 7.2 % Critically high 4.5-6.2 [facility] Comment on above: Performed By: #### T SH, FT3 #### [facility] [address] [place] [address] Dr. Herve Machado LIPID PROFILEon 07-15-2022 CHOL-HDL RATIO NORM SEE BELOW Normal [facility] Comment on above: Result Comment: 3.3 - 4.4 LOW RISK 4.4 - 7.1 AVERAGE RISK 7.1 - 11.0 MODERATE RISK >11.0 HIGH RISK Performed By: #### T SH, FT3 #### [facility] [address] [place] [address] Dr. Herve Machado Cholesterol [Mass/Vol] 136 mg/dL Normal <=200 [facility] Comment on above: Performed By: #### T SH, FT3 #### [facility] [address] [place] [address] Dr. Herve Machado Cholesterol in HDL [Mass/Vol] 51 mg/dL Normal 40-60 [facility] Comment on above: Performed By: #### T SH, FT3 #### [facility] [address] [place] [address] Dr. Herve Machado Cholesterol in LDL [Mass/Vol] 68.6 mg/dL Normal [facility] Comment on above: Performed By: #### T SH, FT3 #### [facility] [address] [place] [address] Dr. Herve Machado Cholesterol.total/Cholest rivas in HDL [Mass ratio] 2.7 {ratio} Normal [facility] Comment on above: Performed By: #### T SH, FT3 #### [facility] [address] [address] [address] Herve Machado HDL NORMAL > or = 60 mg/dl - LOW CARDIOVASCULAR RISK <40 mg/dl - HIGH CARDIOVASCULAR RISK Normal [facility] Comment on above: Performed By: #### T SH, FT3 #### [facility] [address] [place] [address] Dr. Herve Machado LDL CALC NORMAL SEE BELOW Normal [facility] Comment on above: Result Comment: <100 mg/dl OPTIMAL 100 - 129 mg/dl NEAR OR ABOVE OPTIMAL 130 - 159 mg/dl BORDERLINE HIGH 160 - 189 mg/dl HIGH >190 mg/dl VERY HIGH Performed By: #### T SH, FT3 #### [facility] [address] [place] [address] Dr. Herve Machado Triglyceride [Mass/Vol] 82 mg/dL Normal <=150 [facility] Comment on above: Performed By: #### T SH, FT3 #### [facility] [address] [place] [address] Dr. Herve Machado VLDL CALC 16.4 mg/dL Normal [facility] Comment on above: Performed By: #### T SH, FT3 #### [facility] [address] [place] [address] Dr. Herve Machado MICROALBUMIN, RAND URon 06-20 mALB <1.3 Normal <=30.0 [facility] Comment on above: Performed By: #### T SH, FT3 #### [facility] [address] [place] [address] Dr. Herve Machado PROF 14(COMP METB)on 023 Albumin [Mass/Vol] 3.6 g/dL Normal 3.4-5.0 [facility] Comment on above: Performed By: #### T SH, FT3 #### [facility] [address] [place] [address] Dr. Herve Machado Albumin/Globulin [Mass ratio] 1.1 {ratio} Normal [facility] Comment on above: Performed By: #### T SH, FT3 #### [facility] [address] [address] [address] Herve Machado ALP [Catalytic activity/Vol] 64 U/L Normal 46-116 [facility] Comment on above: Performed By: #### T SH, FT3 #### [facility] [address] [address] [address] Herve Machado ALT [Catalytic activity/Vol] 21 U/L Normal 14-59 [facility] Comment on above: Performed By: #### T SH, FT3 #### [facility] [address] [address] [address] Herve Machado Anion gap [Moles/Vol] 11.2 mmol/L Normal [facility] Comment on above: Performed By: #### T SH, FT3 #### [facility] [address] [place] [address] Dr. Herve Machado AST [Catalytic activity/Vol] 18 U/L Normal 15-37 [facility] Comment on above: Performed By: #### T SH, FT3 #### [facility] [address] [place] [address] Dr. Herve Machado Bilirubin [Mass/Vol] 0.6 mg/dL Normal 0.2-1.0 [facility] Comment on above: Performed By: #### T SH, FT3 #### [facility] [address] [place] [address] Dr. Herve Machado Calcium [Mass/Vol] 10.2 mg/dL Critically high 8.5-10.1 [facility] Comment on above: Performed By: #### T SH, FT3 #### [facility] [address] [address] [address] Herve Machado Chloride [Moles/Vol] 107 mmol/L Normal 98-107 [facility] Comment on above: Performed By: #### T SH, FT3 #### [facility] [address] [address] [address] Herve Machado CO2 [Moles/Vol] 28.3 mmol/L Normal 21.0-32.0 [facility] Comment on above: Performed By: #### T SH, FT3 #### [facility] [address] [address] [address] Herve Machado Creatinine [Mass/Vol] 0.66 mg/dL Normal 0.55-1.02 [facility] Comment on above: Performed By: #### T SH, FT3 #### [facility] [address] [address] [address] Herve Machado EGFR-AF NORWEGIAN >60 Normal >=60 [facility] Comment on above: Performed By: #### T SH, FT3 #### [facility] [address] [address] [address] Herve Machado EGFR-NON AF NORWEGIAN >60 Normal >=60 [facility] Comment on above: Performed By: #### T SH, FT3 #### [facility] [address] [address] [address] Herve Machado Globulin (S) [Mass/Vol] 3.3 g/dL Normal [facility] Comment on above: Performed By: #### T SH, FT3 #### [facility] [address] [address] [address] Herve Machado Glucose [Mass/Vol] 154 mg/dL Critically high 74-106 [facility] Comment on above: Performed By: #### T SH, FT3 #### [facility] [address] [address] [address] Herve Machado Potassium [Moles/Vol] 4.5 mmol/L Normal 3.5-5.1 [facility] Comment on above: Performed By: #### T SH, FT3 #### [facility] [address] [address] [address] Herve Machado Protein [Mass/Vol] 6.9 g/dL Normal 6.4-8.2 [facility] Comment on above: Performed By: #### T SH, FT3 #### [facility] [address] [address] [address] Herve Machado Sodium [Moles/Vol] 142 mmol/L Normal 136-145 [facility] Comment on above: Performed By: #### T SH, FT3 #### [facility] [address] [place] [address] Dr. Herve Machado Urea nitrogen [Mass/Vol] 11.0 mg/dL Normal 7.0-18.0 [facility] Comment on above: Performed By: #### T SH, FT3 #### [facility] [address] [place] [address] Dr. Herve Machado Urea nitrogen/Creatinine [Mass ratio] 16.7 mg/mg Normal [facility] Comment on above: Performed By: #### T SH, FT3 #### [facility] [address] [place] [address] Dr. Herve Machado UA RANDOM W/MICROSCOPICon BACTERIA MODERATE Abnormal NONE SEEN [facility] Comment on above: Performed By: #### U AMIC #### [facility] [address] [place] [address] Dr. Herve Machado Bilirubin Ql (U) Negative Normal NEGATIVE [facility] Comment on above: Performed By: #### U AMIC #### [facility] [address] [place] [address] Dr. Herve Machado CAST NONE SEEN Normal NONE SEEN [facility] Comment on above: Performed By: #### U AMIC #### [facility] [address] [place] [address] Dr. Herve Machado Clarity (U) CLEAR Normal CLEAR [facility] Comment on above: Performed By: #### U AMIC #### [facility] [address] [place] [address] Dr. Herve Machado Color (U) LT. YELLOW Normal YELLOW [facility] Comment on above: Performed By: #### U AMIC #### [facility] [address] [place] [address] Dr. Herve Machado Crystals LM Nom (Urine sed) NONE SEEN Normal NONE SEEN [facility] Comment on above: Performed By: #### U AMIC #### [facility] [address] [place] [address] Dr. Herve Machado Epithelial cells LM Ql (Urine sed) FEW Abnormal NONE SEEN /RARE [facility] Comment on above: Performed By: #### U AMIC #### [facility] [address] [address] [address] Herve Machado Glucose Ql (U) Negative Normal NEGATIVE [facility] Comment on above: Performed By: #### U AMIC #### [facility] [address] [address] [address] Herve Machado Hemoglobin Ql (U) Negative Normal NEGATIVE [facility] Comment on above: Performed By: #### U AMIC #### [facility] [address] [address] [address] Herve Machado Ketones Ql (U) Negative Normal NEGATIVE [facility] Comment on above: Performed By: #### U AMIC #### [facility] [address] [place] [address] Dr. Herve Machado LEUKOCYTES Negative Normal NEGATIVE [facility] Comment on above: Performed By: #### U AMIC #### [facility] [address] [address] [address] Herve Machado MUCOUS NONE SEEN Normal NONE SEEN [facility] Comment on above: Performed By: #### U AMIC #### [facility] [address] [address] [address] Herve Machado Nitrite Ql (U) Positive Abnormal NEGATIVE [facility] Comment on above: Performed By: #### U AMIC #### [facility] [address] [address] [address] Herve Machado pH (U) 6.0 [pH] Normal 5-9 [facility] Comment on above: Performed By: #### U AMIC #### [facility] [address] [address] [address] Herve Machado RBC 0-2 Normal 0-2 [facility] Comment on above: Performed By: #### U AMIC #### [facility] [address] [place] [address] Dr. Herve Machado SPEC GRAVITY 1.010 Normal 1.005-<=1.025 [facility] Comment on above: Performed By: #### U AMIC #### [facility] [address] [address] [address] Herve Machado UA PROTEIN Negative Normal NEGATIVE/ TRACE [facility] Comment on above: Performed By: #### U AMIC #### [facility] [address] [place], [place] [address] Dr. Herve Machado Urobilinogen Qn (U) 0.2 {Connie'U}/dL Normal 0.2 - 1. 0 [facility] Comment on above: Performed By: #### U AMIC #### [facility] [address] [address] [address] Herve Machado WBC 2-5 Abnormal NONE SEEN [facility] Comment on above: Performed By: #### U AMIC #### [facility] [address] [address] [address] Herve Machado Physician Referralon 023 Physician Referral [id number]:[id number] Normal [facility] MG MAMM SCREEN 3D VEDA CADon 07-04-2022 MG MAMM SCREEN 3D VEDA CAD Patient: EMILY MANUEL Exam Date: 07/04/2022 : 1955 Gender:F Ordering : ARLEEN NIETO TELEPHONER Admission #: [id number] Family : Order #: [id number] CLICK HERE TO VIEW EXAM RADIOLOGY REPORT [...] pancreatic cancer at age 64. LOCATION: [facility] BREAST COMPOSITION: Scattered areas fibroglandular density. FINDINGS: [...] Meade MD on 07/04/2022 at 10:24 Normal [facility] GLYCOHEMOGLOBIN A1Con 2021 ADA RECOMMENDATION SEE BELOW Normal [facility] Comment on above: Result Comment: ADA RECOMMENDED LIMIT 4.0 - 6.0 ADA THERAPEUTIC TARGET < 7.0 ACTION SUGGESTED > 7.0 Performed By: #### A 1C #### [facility] [address] [place] [address] Dr. Herve Machado Glucose [Mass/Vol] 189 mg/dL Normal [facility] Comment on above: Performed By: #### A 1C #### [facility] [address] [place] [address] Dr. Herve Machado HbA1c (Bld) [Mass fraction] 8.2 % Critically high 4.5-6.2 [facility] Comment on above: Performed By: #### A 1C #### [facility] [address] [place] [address] Dr. Herve Machado FREE T3on 02-28-2022 FREE T3 2.44 pg/mlL Normal 2.18-3.98 [facility] Comment on above: Performed By: #### T SH, FT3 #### [facility] [address] [place] [address] Dr. Herve Machado FREE T4on 02-28-2022 Free T4 [Mass/Vol] 1.48 ng/dL Critically high 0.76-1.46 [facility] Comment on above: Performed By: #### T SH, FT3 #### [facility] [address] [place] [address] Dr. Herve Machado TSHon 02-28-2022 TSH 1.115 uIU/mL Normal 0.358-3.740 [facility] Comment on above: Performed By: #### T SH, FT3 #### [facility] [address] [place] [address] Dr. Herve Machado FREE T3on 11-27-2021 FREE T3 2.54 pg/mlL Normal 2.18-3.98 [facility] Comment on above: Performed By: #### T SH, FT3 #### [facility] [address] [place] [address] Dr. Herve Machado FREE T4on 11-27-2021 Free T4 [Mass/Vol] 1.85 ng/dL Critically high 0.76-1.46 [facility] Comment on above: Performed By: #### T SH, FT3 #### [facility] [address] [place] [address] Dr. Herve Machado TSHon 11-27-2021 TSH 0.228 uIU/mL Critically low 0.358-3.740 [facility] Comment on above: Performed By: #### T SH, FT3 #### [facility] [address] [place] [address] Dr. Herve Machado FREE T3on 10-25-2021 FREE T3 2.50 pg/mlL Normal 2.18-3.98 [facility] Comment on above: Performed By: #### T SH, FT3 #### [facility] [address] [place] [address] Dr. Herve Machado FREE T4on 10-25-2021 Free T4 [Mass/Vol] 1.61 ng/dL Critically high 0.76-1.46 [facility] Comment on above: Performed By: #### T SH, FT3 #### [facility] [address] [place] [address] Dr. Herve Machado TSHon 10-25-2021 TSH 1.949 uIU/mL Normal 0.358-3.740 [facility] Comment on above: Performed By: #### T SH, FT3 #### [facility] [address] [place] [address] Dr. Herve Machado FREE T4on 09-28-2021 Free T4 [Mass/Vol] 1.50 ng/dL Critically high 0.76-1.46 [facility] Comment on above: Performed By: #### T SH, FT3 #### [facility] [address] [address] [address] Herve Machado LIPID PROFILEon 09-28-2021 CHOL-HDL RATIO NORM SEE BELOW Normal [facility] Comment on above: Result Comment: 3.3 - 4.4 LOW RISK 4.4 - 7.1 AVERAGE RISK 7.1 - 11.0 MODERATE RISK >11.0 HIGH RISK Performed By: #### L IPID, TSH #### [facility] [address] [address] [address] Herve Machado Cholesterol [Mass/Vol] 223 mg/dL Critically high <=200 [facility] Comment on above: Performed By: #### L IPID, TSH #### [facility] [address] [address] [address] Herve Machado Cholesterol in HDL [Mass/Vol] 53 mg/dL Normal 40-60 [facility] Comment on above: Performed By: #### L IPID, TSH #### [facility] [address] [address] [address] Herve Machado Cholesterol in LDL [Mass/Vol] 152.2 mg/dL Normal [facility] Comment on above: Performed By: #### L IPID, TSH #### [facility] [address] [address] [address] Herve Machado Cholesterol.total/Cholest rivas in HDL [Mass ratio] 4.2 {ratio} Normal [facility] Comment on above: Performed By: #### L IPID, TSH #### [facility] [address] [address] [address] Herve Machado HDL NORMAL > or = 60 mg/dl - LOW CARDIOVASCULAR RISK <40 mg/dl - HIGH CARDIOVASCULAR RISK Normal [facility] Comment on above: Performed By: #### L IPID, TSH #### [facility] [address] [address] [address] Herve Machado LDL CALC NORMAL SEE BELOW Normal [facility] Comment on above: Result Comment: <100 mg/dl OPTIMAL 100 - 129 mg/dl NEAR OR ABOVE OPTIMAL 130 - 159 mg/dl BORDERLINE HIGH 160 - 189 mg/dl HIGH >190 mg/dl VERY HIGH Performed By: #### L IPID, TSH #### [facility] [address] [address] [address] Herve Machado Triglyceride [Mass/Vol] 89 mg/dL Normal <=150 [facility] Comment on above: Performed By: #### L IPID, TSH #### [facility] [address] [address] [address] Herve Machado VLDL CALC 17.8 mg/dL Normal [facility] Comment on above: Performed By: #### L IPID, TSH #### [facility] [address] [address] [address] Herve Machado TSHon 09-28-2021 TSH 1.423 uIU/mL Normal 0.358-3.740 [facility] Comment on above: Performed By: #### T SH, FT3 #### [facility] [address] [address] [address] Herve Machado TSH RANGE SEE BELOW Normal [facility] Comment on above: Result Comment: <0.3 4 UIU/ml HYPERTHYROID 0.34-5.60 UIU/ml EUTHYROID >5.60 UIU/ml HYPOTHYROID Performed By: #### T SH, FT3 #### [facility] [address] [address] [address] Herve Machado Encounters Encounter Date Encounter Type Care Provider Facility Start: 10-07-2023 End: 10-07-2023 ambulatory STELLA NIETO Not Available Start: 09-25-2023 End: 09-25-2023 Patient encounter procedure Stella Nieto Work Phone: [facility] [place] Work Phone: Start: 09-25-2023 End: 09-25-2023 ambulatory Stella Nieto Work Phone: [facility] Work Phone: Start: 07-22-2023 End: 07-22-2023 ambulatory STELLA NIETO Not Available Start: 07-07-2023 End: 07-07-2023 ambulatory STELLA AICHHOLZ Not Available Start: 06-05-2023 End: 06-06-2023 ambulatory JEAN QUICK [place] Start: 04-23-2023 End: 04-23-2023 ambulatory STELLA AICHHOLZ Not Available Start: 04-02-2023 End: 04-02-2023 ambulatory STELAL AICHHOLZ Not Available Start: 04-01-2023 End: 04-01-2023 ambulatory STELLA AICHHOLZ Not Available Start: 03-26-2023 End: 03-26-2023 Patient encounter procedure Stella Aichholz Work Phone: [facility] [place] Work Phone: Start: 03-26-2023 End: 03-26-2023 ambulatory Stella J Vanessaholz Work Phone: [facility] Work Phone: Start: 09-06-2022 ambulatory Faye Roche Facili ty:[facility] Start: 09-02-2022 End: 09-03-2022 ambulatory TELEPHONER STELLA AICHHOLZ Facility:[facility] Start: 08-27-2022 End: 08-27-2022 Lab Drop off Larissa OROZCO [facility] Start: 08-27-2022 End: 08-28-2022 ambulatory Dias CLIFFORD [facility] Start: 08-12-2022 End: 08-13-2022 ambulatory TELEPHONER STELLA AICHHOLZ Facility:[facility] Start: 08-02-2022 End: 08-03-2022 ambulatory Faye Roche Facility:[facility] Start: 07-15-2022 End: 07-16-2022 ambulatory TELEPHONER STELLA AICHHOLZ Facility:[facility] Start: 07-11-2022 ambulatory Faye Roche Facility :[facility] Start: 07-04-2022 End: 07-05-[address] LIZY MEADE Facility:[facility] Start: 04-04-2022 End: 04-05-2022 ambulatory ARLEEN NIETO Facility:[facility] Start: 02-28-2022 End: 03-01-2022 ambulatory ARLEEN NIETO Facility:[facility] Start: 11-27-2021 End: 11-28-2021 ambulatory ARLEEN NIETO Facility:[facility] Start: 10-25-2021 End: 10-26-2021 ambulatory ARLEEN NIETO Facility:[facility] Start: 09-28-2021 End: 09-29-2021 ambulatory ARLEEN NIETO Facility:[facility] Start: 10-23-2017 End: 10-24-2017 Ambulatory DEFAULT PHYSICIAN Facility:[facility] Start: 10-13-2017 End: 10-14-2017 Ambulatory DEFAULT PHYSICIAN Facility:[facility] Immunizations Immunization Date Immunization Notes Care Provider Fa cili 04-23-2022 SARS-CoV-2 (COVID-19 ) [id number] Dias OB10AM [facility] 07-30-2021 SARS-CoV-2 mRNA (rniwftnzeyy-clof-iltnb se) vaccine Dias SALAM [facility] 02-02-2021 influenza virus vaccine, unspecified formulation Dias SALAM [facility] 02-02-2021 pneumococcal conjuga te vaccine, 13 valent Dias SALAM [facility] 01-15-2021 SARS-CoV-2 (COVID-19 ) mRNA BNT-162b2 vax Dias SALAM [facility] 07-11-2020 SARS-CoV-2 (COVID-19 ) mRNA BNT-162b2 vax Dias SALAM [facility] 06-19-2020 SARS-CoV-2 (COVID-19 ) mRNA BNT-162b2 vax Dias SALAM [facility] 01-22-2020 influenza virus vaccine, unspecified formulation Dias SALAM [facility] 04-26-2019 influenza virus vaccine, unspecified formulation Dias SALAM [facility] 02-06-2018 influenza virus vaccine, unspecified formulation Dias SALAM [facility] 01-30-2017 influenza virus vaccine, unspecified formulation Dias SALAM [facility] 01-30-2016 zoster vaccine, live Dias S ALAM [facility] 01-15-2016 influenza virus vaccine, unspecified formulation Dias SALAM [facility] 04-22-2012 influenza, whole Dias SALAM [facility] 02-06-2009 influenza, whole Dias SALAM [facility] Payers Date Payer Category Payer Self-pay [id number] 1960 Medicaid [id number] 1960 Medicare [id number] 1955 Unknown [id number] 2.16.84 0.1.460449.3.579.2.593 1954 Unknown [id number] 2.16.84 0.1.000127.3.579.2.593 1954 Unknown [id number] 2.16.84 0.1.964336.3.579.2.593 1954 Unknown [id number] 2.16.84 0.1.272651.3.579.2.593 1954 Unknown [id number] 2.16.84 0.1.966915.3.579.2.593 1954 Unknown [id number] 2.16.84 0.1.290950.3.579.2.593 1954 Unknown [id number] 2.16.84 0.1.530272.3.579.2.593 1954 Unknown [id number] 2.16.84 0.1.910892.3.579.2.593 1954 Unknown [id number] 2.16.84 0.1.548004.3.579.2.593 1954 Unknown [id number] 2.16.8 40.1.017059.3.579.2.727 1954 Unknown [id number] 2.16.8 40.1.604572.3.579.2.727 1954 Unknown [id number] 2.16.8 40.1.552098.3.579.2.727 1954 Unknown [id number] 2.16.8 40.1.359416.3.579.2.727 1954 Unknown [id number] 2.16.8 40.1.556393.3.579.2.727 1954 Unknown [id number] 2.16.8 40.1.720216.3.579.2.1286 1954 Unknown [id number] 2.16.84 0.1.120065.3.579.2.1259 1954 Unknown [id number] 2.16.84 0.1.536948.3.579.2.1259 1954 Unknown [id number] 2.16.84 0.1.826258.3.579.2.1259 1954 Unknown [id number] 2.16.840 .1.584392.3.579.2.1259 1954 Unknown [id number] 2.16.840 .1.771105.3.579.2.1259 1954 Unknown [id number] 2.16.840 .1.893809.3.579.2.1259 Unknown Unknown [id number] 2.16.8 40.1.941724.3.579.2.531 Unknown [id number] 2.16.8 40.1.428397.3.579.2.531 Social History Date Type Detail Facility Start: 07-10-2016 End: 08-02-2022 Tobacco smoking status Never smoked tobacco (finding) [facility] Tobacco smoking status Never [facility] Sex Assigned At Female [facility] Start: 1955 Sex Assigned At Female Juan Diego [facility] Evaluation + Plan note Note Date & Type Note Facility Evaluation + Plan note No data available for this section [facility] Evaluation note Note Date & Type Note Facility Evaluation note No assessment information availa [facility] Work Phone: Hospital Discharge instructions Note Date & Type Note Facility Hospital Discharge instructions No data available for this section [facility] Progress note Note Date & Type Note Facility Progress note No data available for this section [facility] Summary Purpose Family History No Family History Records Found Relationship Condition Age at Onset Recorded Date/T deborah father Diabetes mellitus Unknown Hypertension Unknown Unknown family member Unknown Not Specified Unknown History of stroke Unknown Diabetes mellitus Unknown Advance Directives No Advanced Directives Records Found Advance Directive Response Recorded Date/ Time Advance Directives No August 04 12:23pm Advance Directive Response Recorded Date/ Time Advance Directives No August 04 1:23pm Chief Complaint and Reason for Visit Chief Complaint E83.52 E21.3 Additional Source Comments INFORMATION SOURCE (unrecogn ized section and content) DATE CREATED AUTHOR 10/24/2017 [facility] DATE CREATED AUTHOR AUTHOR'S ORGANIZ ATION 09/02/2022 [facility] DATE CREATED AUTHOR AUTHOR'S ORGANIZ ATION 09/04/2022 [facility] DATE CREATED AUTHOR AUTHOR'S ORGANIZ ATION [facility]/07/[facility] DATE CREATED AUTHOR AUTHOR'S ORGANIZ ATION 10/08/2023 [facility] DATE CREATED AUTHOR AUTHOR'S ORGANIZ ATION 10/08/2023 [facility] Patient Care team informatio n (unrecognized section and content) Team Status: Active Member Role Status Dates Stella Nieto Primary Care Provider Active Team Status: Inactive Member Role Status Dates Stella Nieto Primary Care Provider Active Jean Quick MD Attending Provider Active Team Status: Inactive Member Role Status Dates Stella Nieto Primary Care Provider Active Sta rt: September 25, 2023 End: September 25, 2023 Jean Quick MD Attending Provider Active Sta rt: September 25, 2023 [...] BE BASED ON THE PRIMARY CLINICAL RECORDS. [facility] [employer] [facility]. provides no warranty or guarantee of the accuracy or completeness of information in this document.
[2023-12-01 11:28] LABS: Free T4 1.57 ng/dL (0.76-1.46)
[2023-12-01 11:29] LABS: Free T3 1.68 pg/mL (2.18-3.98); Thyroid Stimulating Hormone 2.584 uIU/mL (0.358-3.740)
== END 2023-12-01 09:09 | disposition home or self-care (01) ==
LOC: LAB 09:09
PROVIDERS: PCP Nurse Practitioner; Visit Provider Nurse Practitioner
DX: E03.9 Hypothyroidism, unspecified (principal)
CPT/HCPCS: 36415; 84439; 84443; 84481

== ENCOUNTER 2024-02-03 11:44 | Outpatient (OUT) | payer MEDICARE, SELFPAY ==
--- OUTSIDE RECORDS SUMMARY | 2024-02-03 11:50 | XMS_ITS | CCD ---
Author Organization [facility] Care Team Providers Care Marketing Ambassador Name Role Phone PHYSICIAN, DEFAULT Unavailable Unavailable PHYSICIAN, DEFAULT Unavailable Unavailable PHYSICIAN, DEFAULT Unavailable Unavailable PHYSICIAN, DEFAULT Unavailable Unavailable AICHHOLZ, STELLA J Primary Care Physician [phone] AICHHOLZ, MICROBIAL SPECIALIST STELLA Attending Unavailable AICHHOLZ, MICROBIAL SPECIALIST STELLA Primary Care Unavailable AICHHOLZ, MICROBIAL SPECIALIST STELLA Admitting Unavailable AICHHOLZ, MICROBIAL SPECIALIST STELLA Consulting Unavailable AICHHOLZ, MICROBIAL SPECIALIST STELLA Admitting Unavailable AICHHOLZ, MICROBIAL SPECIALIST STELLA Attending Unavailable AICHHOLZ, MICROBIAL SPECIALIST STELLA Primary Care Unavailable AICHHOLZ, MICROBIAL SPECIALIST STELLA Consulting Unavailable DR GEORGINA HATCH Consulting Unavailable AICHHOLZ, MICROBIAL SPECIALIST STELLA Attending Unavailable AICHHOLZ, MICROBIAL SPECIALIST STELLA Primary Care Unavailable AICHHOLZ, MICROBIAL SPECIALIST STELLA Admitting Unavailable AICHHOLZ, MICROBIAL SPECIALIST STELLA Consulting Unavailable AICHHOLZ, MICROBIAL SPECIALIST STELLA Attending Unavailable AICHHOLZ, MICROBIAL SPECIALIST STELLA Primary Care Unavailable AICHHOLZ, MICROBIAL SPECIALIST STELLA Referring Unavailable AICHHOLZ, MICROBIAL SPECIALIST STELLA Admitting Unavailable AICHHOLZ, MICROBIAL SPECIALIST STELLA Consulting Unavailable DR LIZY MEADE V Consulting Unavailable AICHHOLZ, MICROBIAL SPECIALIST STELLA Primary Care Unavailable AICHHOLZ, MICROBIAL SPECIALIST STELLA Attending Unavailable AICHHOLZ, MICROBIAL SPECIALIST STELLA Admitting Unavailable AICHHOLZ, MICROBIAL SPECIALIST STELLA Consulting Unavailable AICHHOLZ, MICROBIAL SPECIALIST STELLA Consulting Unavailable AICHHOLZ, MICROBIAL SPECIALIST STELLA Primary Care Unavailable AICHHOLZ, MICROBIAL SPECIALIST STELLA Attending Unavailable AICHHOLZ, MICROBIAL SPECIALIST STELLA Admitting Unavailable AICHHOLZ, MICROBIAL SPECIALIST STELLA Consulting Unavailable AICHHOLZ, MICROBIAL SPECIALIST STELLA Primary Care Unavailable AICHHOLZ, MICROBIAL SPECIALIST STELLA Attending Unavailable AICHHOLZ, MICROBIAL SPECIALIST STELLA Admitting Unavailable AICHHOLZ, MICROBIAL SPECIALIST STELLA Consulting Unavailable AICHHOLZ, MICROBIAL SPECIALIST STELLA Admitting Unavailable AICHHOLZ, MICROBIAL SPECIALIST STELLA Primary Care Unavailable AICHHOLZ, MICROBIAL SPECIALIST STELLA Attending Unavailable AICHHOLZ, MICROBIAL SPECIALIST STELLA Consulting Unavailable AICHHOLZ, MICROBIAL SPECIALIST STELLA Primary Care Unavailable AICHHOLZ, MICROBIAL SPECIALIST STELLA Attending Unavailable AICHHOLZ, MICROBIAL SPECIALIST STELLA Admitting Unavailable Melchor, Faye A Attending Unavailable Melchor, Faye A Attending Unavailable SALAM, Dias Referring Unavailable SALAM, Dias Attending Unavailable SALAM, Dias Attending Unavailable SALAM, Dias Admitting Unavailable AicMonica patela J Primary Care Provider MD Jean Quick Attending Provider JEAN QUICK Referring Unavailable MONICA NIETOA J Primary Care Unavailable Stella Nieto J Primary Care Provider MD Jean Quick Attending Provider Jean Quick Attending Unavailable Debora, Ahmad Admitting Unavailable Aicamanda Stella J Primary Care Unavailable Gerson, Stella J Primary Care Unavailable DeboraGeoff richardsond Attending Unavailable Debora, Ahmad Admitting Unavailable AICHHOLZ, STELLA Attending Unavailable AICHHOLZ, STELLA Attending Unavailable AICHHOLZ, STELLA Attending Unavailable AICHHOLZ, STELLA Attending Unavailable AICHHOLZ, STELLA Attending Unavailable Ángel Iverson MD Primary Care Provider [place] LEHR ATTENDANT, Stella Unavailable Allergies Allergy Classification Reported Allergen(s) Allergy Type Date of Onset Reaction(s) Facility (5 sources) Penicillins; Translations: [penicillins] Drug allergy 09-18-2013 [facility] Medications Current Medications Medication Drug Class(es) Dates Sig (Normalized) Sig (Original) alendronic acid 35 mg oral tablet (2 sources) Bisphosphonate Start: 10-07-2023 alendronate (Fosamax) 35 MG tablet Indications: Other specified disorders of bone density and structure, unspecified site Take 1 tablet (35 mg) by mouth every 7 (seven) days 12 tablet 1 10/07/2023 Active Start: 03-24-2017 alendronate 35 mg oral tablet 35 mg = 1 tab(s), Oral, Refills(s) 0, Other (see comment) Start Date: 03/24/17 Status: Ordered {1 (Ascorbic Acid 7540 MG / POLYETHYLENE GLYCOL 3350 09586 MG / Potassium Chloride 1200 MG / Sodium Ascorbate 01970 MG / Sodium Chloride 3200 MG Powder for Oral Solution) / 1 (POLYETHYLENE GLYCOL 3350 586723 MG / Potassium Chloride 1000 MG / [...] Status: Ordered atorvastatin 80 mg oral tablet (2 sources) HMG-CoA Reductase Inhibitor Start: 11-10-2023 End: 02-08-2024 take 1 tablet by mouth in the evening atorvastatin (Lipitor) 80 MG tablet Indications: Mixed hyperlipidemia (CMS/HCC) Take 1 tablet (80 mg) by mouth in the evening 90 tablet 1 11/10/2023 02/08/2024 Active Start: 03-24-2017 take 80 mg by mouth once daily atorvastatin 80 mg, Oral, Daily, Refills(s) 0, High cholesterol Start Date: 03/24/17 Status: Ordered cetirizine hydrochloride 10 mg oral tablet (1 source) Histamine-1 Receptor Antagonist Start: 10-07-2023 take 1 tablet by mouth once daily cetirizine (ZyrTEC) 10 MG tablet Indications: Environmental allergies Take 1 tablet (10 mg) by mouth Daily 30 tablet 5 10/07/2023 Active DULoxetine 30 mg delayed release oral capsule (2 sources) Serotonin and Norepinephrine Reuptake Inhibitor Start: 11-10-2023 End: 02-08-2024 take 1 capsule by mouth once daily DULoxetine (Cymbalta) [address] capsule Indications: Other specified anxiety disorders , Mild episode of recurrent major depressive disorder (HCC) (CMS/HCC) Take 1 capsule (30 mg) by mouth Daily 90 capsule 1 11/10/2023 02/08/2024 Active Start: 03-24-2017 take 30 mg by mouth once daily duloxetine 30 mg, Oral, Daily, Refills(s) 0, Depression Start Date: 03/24/17 Status: Ordered levothyroxine sodium 0.088 mg oral tablet (2 sources) l-Thyroxine Start: 12-29-2023 End: 03-28-2024 take 1 tablet by mouth before mealtime levothyroxine (Synthroid, Levoxyl) 88 MCG tablet Indications: Hypothyroidism, unspecified type (CMS/HCC) Take 1 tablet (88 mcg) by mouth in the morning. Take before meals. 90 tablet 12/29/2023 03/28/2024 Active Start: 03-24-2017 levothyroxine 137 microgram, Oral, Daily, Refills(s) 0, Thyroid Start Date: 03/24/17 Status: Ordered 3 ml liraglutide 6 mg/ml pen injector (1 source) GLP-1 Receptor Agonist Start: 03-24-2017 inject 18 mg by subcutaneous injection once daily Victoza 6 mg/mL subcutaneous injection 18 mg, SubCutaneous, Daily, Refills(s) 0, Blood glucose Start Date: 03/24/17 Status: Ordered lisinopril 10 mg oral tablet (2 sources) Angiotensin Converting Enzyme Inhibitor Start: 11-10-2023 End: 02-08-2024 take 1 tablet by mouth in the morning lisinopril 10 MG tablet Indications: Essential (primary) hypertension (CMS/HCC) Take 1 tablet (10 mg) by mouth in the morning. 90 tablet 1 11/10/2023 02/08/2024 Active Start: 03-24-2017 take 20 mg by mouth once daily lisinopril 20 mg, Oral, Daily, Refills(s) 0, High blood pressure Start Date: 03/24/17 Status: Ordered loratadine 10 mg oral tablet (1 source) Start: 03-24-2017 take 10 mg by mouth once daily loratadine 10 mg, Oral, Daily, Refills(s) 0, Allergy symptoms Start Date: 03/24/17 Status: Ordered LORazepam 0.5 mg oral tablet (2 sources) Benzodiazepine Start: 10-07-2023 End: 01-28-2024 LORazepam (Ativan) 0.5 MG tablet Indications: Anxiety in acute stress reaction (CMS/HCC) , Dental disease 1 dose the night before the scheduled dental procedure, then may repeat a dose in the morning about 2 hours prior to procedure. Must have a shuttle truck driver for this 2 tablet 01/28/2024 Active 24 hr metFORMIN hydrochloride 750 mg extended release oral tablet (2 sources) Biguanide Start: 11-10-2023 End: 02-08-2024 take 1 tablet by mouth every twenty-four hours in the morning metFORMIN XR (Glucophage-XR) 750 MG 24 hr tablet Indications: Type 2 diabetes mellitus without complications (CMS/HCC) Take 1 tablet (750 mg) by mouth in the morning and 1 tablet (750 mg) in the evening. Take before meals. 180 tablet 1 11/10/2023 02/08/2024 Active Start: 03-24-2017 take 500 mg by mouth twice daily metformin 500 mg, Oral, BID, Refills(s) 0, Blood glucose Start Date: 03/24/17 Status: Ordered 24 hr metoprolol succinate 100 mg extended release oral tablet (1 source) beta-Adrenergic German Start: 03-24-2017 metoprolol 100 mg ER Tab 100 mg = 1 tab(s), Oral, Refills(s) 0, High blood pressure Start Date: 03/24/17 Status: Ordered omeprazole 20 mg delayed release oral capsule (2 sources) Proton Pump Inhibitor Start: 10-07-2023 take 1 capsule by mouth before mealtime omeprazole (PriLOSEC) [address] capsule Indications: Gastroesophageal reflux disease without esophagitis Take 1 capsule (20 mg) by mouth in the morning. Take before meals. 90 capsule 1 10/07/2023 Active Start: 03-24-2017 take 20 mg by mouth once daily omeprazole 20 mg, Oral, Daily, Refills(s) 0, Control of stomach acid Start Date: 03/24/17 Status: Ordered pioglitazone 15 mg oral tablet (1 source) Peroxisome Proliferator Receptor alpha Agonist, Peroxisome Proliferator Receptor gamma Agonist, Thiazolidinedione Start: 10-07-2023 take 1 tablet by mouth once daily pioglitazone (Actos) 15 MG tablet Indications: Type 2 diabetes mellitus without complications (CMS/HCC) Take 1 tablet (15 mg) by mouth Daily 90 tablet 1 10/07/2023 Active Semaglutide,0.25 or 0.5MG/DOS, (Ozempic, 0.25 or 0.5 MG/DOSE,) 2 MG/3ML solution pen-injector (1 source) Start: 10-07-2023 Semaglutide,0.25 or 0.5MG/DOS, (Ozempic, 0.25 or 0.5 MG/DOSE,) 2 MG/3ML solution pen-injector Indications: Type 2 diabetes mellitus without complications (CMS/HCC) Inject 0.5 mg as directed 1 (one) time per week 9 mL 1 10/07/2023 Active Vitamin D (1 source) Start: 03-24-2017 Vitamin D 5,000IU, Oral, Daily, Refills(s) 0, Prophylaxis Start Date: 03/24/17 Status: Ordered Problems Active Problems Problem Classification Problem Date Documented Date Episodic/Chronic Anxiety disorders (3 sources) Anxiety; Translations: [Generalized anxiety disorder] Onset: 11-19-2022 01-28-2024 Chronic Diabetes mellitus without complication (5 sources) Type 2 diabetes mellitus without complications; Translations: [Type 2 diabetes mellitus] Onset: 01-01-2018 Chronic Disorders of lipid metabolism (7 sources) Hyperlipidemia, unspecified; Translations: [Dyslipidemia] Onset: 01-01-2018 Chronic Disorders of teeth and jaw (2 sources) Tooth disorder; Translations: [Disorder of teeth and supporting structures, unspecified] Onset: 04-02-2023 01-28-2024 Episodic Diverticulosis and diverticulitis (1 source) Diverticular disease; Translations: [Diverticulosis of intestine, part unspecified, without perforation or abscess without bleeding] Onset: 11-19-2022 11-19-2022 Chronic Esophageal disorders (1 source) Gastroesophageal reflux disease; Translations: [Gastro-esophageal reflux disease without esophagitis] Onset: 04-02-2023 04-02-2023 Chronic Essential hypertension (1 source) Hypertensive disorder; Translations: [Essential (primary) hypertension] Onset: 01-01-2018 04-02-2023 Chronic Mood disorders (1 source) Recurrent major depressive episodes, mild ; Translations: [Major depressive disorder, recurrent, mild] Onset: 05-04-2023 05-04-2023 Chronic Nutritional deficiencies (2 sources) Vitamin D deficiency, unspecified; Translations: [Vitamin D deficiency] Onset: 04-02-2023 04-02-2023 Chronic Osteoarthritis (1 source) Osteoarthritis of joint of right elbow; Translations: [Primary osteoarthritis, right elbow] Onset: 10-07-2023 10-07-2023 Chronic Osteoporosis (1 source) Osteoporosis; Translations: [Age-related osteoporosis without current pathological fracture] Onset: 04-02-2023 07-07-2023 Chronic Other bone disease and musculoskeletal deformities (1 source) Other specified disorders of bone density and structure, unspecified site; Translations: [OTH D/O BONE DEN STRUCT UNS SITE] Onset: 07-18-2022 Episodic Other ear and sense organ disorders (1 source) Hearing loss; Translations: [Unspecified hearing loss, unspecified ear] Onset: 11-19-2022 04-02-2023 Chronic Other ear and sense organ disorders (1 source) Sensorineural hearing loss, bilateral; Translations: [Sensorineural hearing loss, bilateral] Onset: 11-25-2022 11-25-2022 Chronic Other endocrine disorders (2 sources) Hyperparathyroidism, unspecified; Translations: [Hyperparathyroidism, unspecified] Onset: 03-26-2023 Chronic Other endocrine disorders (2 sources) Hyperparathyroidism; Translations: [Hyperparathyroidism, unspecified] Onset: 11-19-2022 11-19-2022 Chronic Other nutritional; endocrine; and metabolic disorders (2 sources) Hypercalcemia; Translations: [Hypercalcemia] Onset: 06-05-2023 Chronic Other nutritional; endocrine; and metabolic disorders (1 source) Hypomagnesemia; Translations: [Hypomagnesemia] Onset: 06-05-2023 Chronic Other nutritional; endocrine; and metabolic disorders (1 source) Body mass index 30+ - obesity; Translations: [Obesity, unspecified] Onset: 04-02-2023 04-02-2023 Chronic Other nutritional; endocrine; and metabolic disorders (1 source) Hypomagnesemia; Translations: [Hypomagnesemia] Onset: 10-07-2023 10-07-2023 Chronic Residual codes; unclassified (1 source) Family history of malignant neoplasm of other organs or systems; Translations: [FAM HX MALIG NEOPLASM OT ORGN/SYS] Onset: 07-12-2022 Episodic Spondylosis; intervertebral disc disorders; other back problems (1 source) Arthropathy of lumbar facet joint; Translations: [Spondylosis without myelopathy or radiculopathy, lumbar region] Onset: 04-02-2023 04-02-2023 Chronic Thyroid disorders (7 sources) Hypothyroidism, unspecified; Translations: [Hypothyroidism] Onset: 10-02-2021 Chronic Urinary tract infections (4 sources) Urinary tract infection, site not specified; Translations: [UTI SITE NOT SPECIFIED] Onset: 08-12-2022 Episodic Past or Other Problems Problem Classification Problem Date Documented Da te Episodic/Chronic Allergic reactions (1 source) Environmental allergy; Translations: [Other allergy status, other than to drugs and biological substances] Onset: 04-02-2023 04-02-2023 Episodic Deficiency and other anemia (1 source) Anemia; Translations: [Anemia, unspecified] Onset: 04-02-2023 04-02-2023 Episodic Hemorrhoids (1 source) Hemorrhoids; Translations: [Unspecified hemorrhoids] Onset: 11-19-2022 Resolved: 11-19-2022 11-19-2022 Episodic Mood disorders (1 source) Mood disorders Onset: 01-07-2024 01-07-2024 Mycoses (1 source) Candidiasis; Translations: [Candidiasis, unspecified] Onset: 04-02-2023 04-02-2023 Episodic Nausea and vomiting (1 source) Nausea and vomiting; Translations: [Nausea with vomiting, unspecified] Onset: 04-02-2023 Resolved: 07-07-2023 07-07-2023 Episodic Other and unspecified benign neoplasm (2 sources) History of polyp of colon; Translations: [History of colon polyps] Onset: 11-19-2022 Resolved: 11-19-2022 08-02-2022 Episodic Other and unspecified benign neoplasm (1 source) Polyp of colon; Translations: [Polyp of colon] Onset: 11-19-2022 11-19-2022 Episodic Other bone disease and musculoskeletal deformities (1 source) Osteopenia; Translations: [Other specified disorders of bone density and structure, unspecified site] Onset: 04-02-2023 Resolved: 07-07-2023 07-07-2023 Episodic Other connective tissue disease (1 source) Lateral epicondylitis of right humerus; Translations: [Lateral epicondylitis, right elbow] Onset: 07-22-2023 07-22-2023 Episodic Other connective tissue disease (1 source) Pain of right thigh; Translations: [Pain in right thigh] Onset: 04-02-2023 Resolved: 07-07-2023 07-07-2023 Episodic Other ear and sense organ disorders (1 source) Tinnitus of right ear; Translations: [Tinnitus, right ear] Onset: 11-25-2022 11-25-2022 Episodic Other ear and sense organ disorders (1 source) Ear problem; Translations: [Unspecified disorder of ear, unspecified ear] Onset: 04-02-2023 04-02-2023 Episodic Other gastrointestinal disorders (1 source) Heartburn; Translations: [Heartburn] Onset: 04-10-2018 Resolved: 11-19-2022 11-19-2022 Episodic Other hematologic conditions (1 source) History of anemia; Translations: [Personal history of diseases of the blood and blood-forming organs and certain disorders involving the immune mechanism] Onset: 04-02-2023 04-02-2023 Episodic Other hereditary and degenerative nervous system conditions (1 source) Restless legs; Translations: [Restless legs syndrome] Onset: 11-19-2022 Resolved: 07-07-2023 07-07-2023 Chronic Other inflammatory condition of skin (1 source) Seborrheic dermatitis; Translations: [Seborrheic dermatitis, unspecified] Onset: 04-02-2023 04-02-2023 Episodic Other nervous system disorders (1 source) Magnetic resonance imaging of brain abnormal; Translations: [White matter disease, unspecified] Onset: 12-25-2022 04-02-2023 Episodic Other nutritional; endocrine; and metabolic disorders (1 source) Hypercalcemia; Translations: [Hypercalcemia] Onset: 11-19-2022 Resolved: 11-19-2022 11-19-2022 Chronic Other screening for suspected conditions (not mental disorders or infectious disease) (5 sources) Encounter for screening mammogram for malignant neoplasm of breast; Translations: [Patient encounter status] Onset: 07-04-2022 Episodic Residual codes; unclassified (1 source) Family history of polyp of colon; Translations: [Family history of colonic polyps] Onset: 11-19-2022 Resolved: 11-19-2022 11-19-2022 Episodic Sprains and strains (1 source) Strain of left trapezius muscle; Translations: [Strain of other muscles, fascia and tendons at shoulder and upper arm level, left arm, subsequent encounter] Onset: 12-13-2023 Resolved: 07-07-2023 07-07-2023 Episodic Unclassified (1 source) Onset: 01-07-2024 01-07-2024 Viral infection (1 source) Herpes zoster; Translations: [Zoster without complications] Onset: 04-02-2023 04-02-2023 Episodic Results Test Name Value Interpretation Reference Range Facility Albumin [Mass/volume] in Ser um or Plasma by Bromocresol green (BCG) dye binding methoOrdered By: Jean Quick on 09-25-2023 Albumin BCG dye [Mass/Vol] 4.2 g/dL 3.5-5.7 [facility] Calcium [Mass/volume] in Ser um or PlasmaOrdered By: Jean Quick on 09-25-2023 Calcium [Mass/Vol] 10.3 mg/dL Normal 8.6-10.3 [facility] Comment on above: Performed By: #### V [id number], MG, PTH, RENAL #### [facility] [address] [place] [address] [place] Carbon dioxide, total [Moles /volume] in Serum or PlasmaOrdered By: Jean Quick on 09-25-2023 CO2 [Moles/Vol] 29.4 mmol/L Normal 21.0-31.0 [facility] Comment on above: Performed By: #### V [id number], MG, PTH, RENAL #### [facility] [address] [place] [address] [place] Chloride [Moles/volume] in S rosalind or PlasmaOrdered By: Jean Quick on 09-25-2023 Chloride [Moles/Vol] 103 mmol/L Normal 98-107 [facility] Comment on above: Performed By: #### V [id number], MG, PTH, RENAL #### [facility] [address] [place] [id number] [place] Creatinine [Mass/volume] in Serum or PlasmaOrdered By: Jean Quick on 09-25-2023 Creatinine [Mass/Vol] 0.75 mg/dL Normal 0.60-1.20 [facility] Comment on above: Performed By: #### V [id number], MG, PTH, RENAL #### [facility] [address] Glucose [Mass/volume] in Ser um or PlasmaOrdered By: Jean Quick on 09-25-2023 Glucose [Mass/Vol] 108 mg/dL High 70-100 [facility] Comment on above: ADA recommended refe rence rangeRandom Glucose Reference Range is dependent on time and content of last meal. Glucose of more than 200 mg/dL in a nonstressed, ambulatory subject supports the diagnosis of Diabetes Mellitus. Result Comment: [place] om Glucose Reference Range is dependent on time and content of last meal. Glucose of more than 200 mg/dL in a nonstressed, ambulatory subject supports the diagnosis of Diabetes Mellitus. ADA recommended reference range Performed By: #### V [id number], MG, PTH, RENAL #### [facility] [address] [place] [address] Magnesium [Mass/volume] in S rosalind or PlasmaOrdered By: Jean Quick on 09-25-2023 Magnesium [Mass/Vol] 1.8 mg/dL Low 1.9-2.7 [facility] Comment on above: Performed By: #### V [id number], MG, PTH, RENAL #### [facility] [address] [place] [address] No Panel InformationOrdered By: Jean Quick on 09-25-2023 Estimated GFR (CKD-EPI) > 60.0 mL/Min [facility] Creatinine Clearance (Chem N/A [facility] Parathyrin.intact [Mass/volu me] in Serum or PlasmaOrdered By: Jean Quick on 09-25-2023 Parathyrin.intact [Mass/Vol] 74.4 pg/mL [facility] Parathyroid Hormone Intacton 09-25-2023 Parathyroid Hormone Intact 74.4 pg/mL Normal The Replaced By [facility] Comment on above: Result Comment: PERF ORMED BY: [place] [address] PATHOLOGIST CLERK CHECKER EZEQUIEL FIGUEREDO M.D. Performed By: #### V [id number], MG, PTH, RENAL #### [address] Phosphate [Mass/volume] in S rosalind or PlasmaOrdered By: Jean Quick on 09-25-2023 Phosphate [Mass/Vol] 3.3 mg/dL Normal 2.5-4.5 [facility] Comment on above: Performed By: #### V [id number], MG, PTH, RENAL #### [address] Potassium [Moles/volume] in Serum or PlasmaOrdered By: Jean Quick on 09-25-2023 Potassium [Moles/Vol] 4.3 mmol/L Normal 3.5-5.1 [facility] Comment on above: Performed By: #### V [id number], MG, PTH, RENAL #### [address] Renal Function Panelon 09-24 Albumin [Mass/Vol] 4.2 g/dL Normal 3.5-5.7 [facility] Comment on above: Performed By: #### V [id number], MG, PTH, RENAL #### [address] GFR/1.73 sq M.predicted MDRD (S/P/Bld) [Vol rate/Area] mL/min/{1.73_m2} Normal [facility] Comment on above: Performed By: #### V [id number], MG, PTH, RENAL #### [address] Serum or plasma anion gap de terminationOrdered By: Jean Quick on 09-25-2023 Anion gap [Moles/Vol] 11.9 mmol/L Normal 6.0-15.0 [facility] Comment on above: Performed By: #### V [id number], MG, PTH, RENAL #### [address] Sodium [Moles/volume] in Ser um or PlasmaOrdered By: Jean Quick on 09-25-2023 Sodium [Moles/Vol] 140 mmol/L Normal 136-145 [facility] Comment on above: Performed By: #### V [id number], MG, PTH, RENAL #### [facility] [address] Urea nitrogen [Mass/volume] in Serum or PlasmaOrdered By: Jean Quick on 09-25-2023 Urea nitrogen [Mass/Vol] 11 mg/dL Normal 7-25 [facility] Comment on above: Performed By: #### V [id number], MG, PTH, RENAL #### [facility] [address] Vitamin D 25 Hydroxy Totalon 09-25-2023 Vitamin D 25 Hydroxy Total 36.4 ng/mL Normal 30-100 [facility] Comment on above: Result Comment: JUAN PABLO MIN D STATUS 25(OH)VITAMIN D RANGE (ng/mL) Deficient <20 Insufficient 20 to <30 Sufficient 30 to 100 Reference: Magali Oliveros, Yumiko SCHWARZ, et al. Evaluation,treatment, and prevention of vitamin D deficiency; an Endocrine Society clinical practice guideline. JCEM. 2010; 96(7):1911-. PERFORMED BY: [place] [address] PATHOLOGIST CLERK CHECKER EZEQUIEL FIGUEREDO M.D. Performed By: #### V [id number], MG, PTH, RENAL #### [facility] [address] [place] [address] Vitamin D+Metabolites [Mass/ volume] in Serum or PlasmaOrdered By: Jean Quick on 09-25-2023 Vitamin D+Metabolites [Mass/Vol] 36.4 ng/mL 30-100 [facility] Comment on above: VITAMIN D STATUS 25( [place])VITAMIN D RANGE (ng/mL) Deficient <20 Insufficient 20 to <30Sufficient 30 to 100Reference: Magali Oliveros, Yumiko SCHWARZ, et al. Evaluation,treatment, and prevention of vitamin D deficiency; an Endocrine Society clinical practice guideline. JCEM. 2010; 96(7):1911-30. CALCIUMon 06-05-2023 Calcium [Mass/Vol] 10.3 mg/dL Normal 8.5-10.5 [facility] Comment on above: Performed By: #### 1 7861-6, 13525-6, 2731-8, 51261-3 #### [facility] ([id number]) [address], [address] [place] [address] MAGNESIUMon 06-05-2023 Magnesium [Mass/Vol] 1.7 mg/dL Low 1.8-2.6 [facility] Comment on above: Performed By: #### 1 7861-6, 96681-6, 273-8, 90067-8 #### [facility] ([id number]) [address], [address] [place] [address] Parathyrin.intact [Mass/Vol] on 06-05-2023 PTH INTACT 71 pg/mL Normal 12-88 [facility] Comment on above: Performed By: #### 1 7861-6, 94677-9, 273-8, 39534-7 #### [facility] ([id number]) [address], [address] [place] [address] RENAL PANELon 06-05-2023 Albumin [Mass/Vol] 4.3 g/dL Normal 3.2-5.3 [facility] Comment on above: Performed By: #### R ENAL #### [facility] ([id number]) [address], [address] [place] [address] Anion gap [Moles/Vol] 8 mmol/L Normal 5-15 [facility] Comment on above: Performed By: #### R ENAL #### [facility] ([id number]) [address], [address] [place] [address] Calcium [Mass/Vol] 10.6 mg/dL High 8.5-10.5 [facility] Comment on above: Performed By: #### R ENAL #### [facility] ([id number]) [address], [address] [place] [address] Chloride [Moles/Vol] 98 mmol/L Normal 98-109 [facility] Comment on above: Performed By: #### R ENAL #### [facility] ([id number]) [address], [address] [place] [address] CO2 [Moles/Vol] 31 mmol/L Normal 22-32 [facility] Comment on above: Performed By: #### R ENAL #### [facility] ([id number]) [address] [place] [address] Creatinine [Mass/Vol] 0.82 mg/dL Normal 0.40-1.00 [facility] Comment on above: Result Comment: METH OD TRACEABLE TO IDMS STANDARD Performed By: #### R ENAL #### [facility] ([id number]) [address], [address] [place] [address] GFR/1.73 sq M.predicted among non-blacks MDRD (S/P/Bld) [Vol rate/Area] 77 mL/min/{1.73_m2} Normal >59 [facility] Comment on above: Result Comment: Reported eGFR is based on the CKD-EPI 2020 equation that does not use a race coefficient. Performed By: #### R ENAL #### [facility] ([id number]) [address], [address] [place] [address] Glucose [Mass/Vol] 156 mg/dL High 65-99 [facility] Comment on above: Performed By: #### R ENAL #### [facility] ([id number]) [address] [place] [address] Phosphate [Mass/Vol] 3.2 mg/dL Normal 2.4-4.9 [facility] Comment on above: Performed By: #### R ENAL #### [facility] ([id number]) [address], [address] [place] [address] Potassium [Moles/Vol] 4.2 mmol/L Normal 3.5-5.0 [facility] Comment on above: Performed By: #### R ENAL #### [facility] ([id number]) [address] [place] [address] Sodium [Moles/Vol] 137 mmol/L Normal 134-146 [facility] Comment on above: Performed By: #### R ENAL #### [facility] ([id number]) [address], [address] [place] [address] Urea nitrogen [Mass/Vol] 11 mg/dL Normal 5-27 [facility] Comment on above: Performed By: #### R ENAL #### [facility] ([id number]) [address] [place] [address] Vitamin D+Metabolites [Mass/ Vol]on 06-05-2023 VITAMIN D 25 HYD TOT 36.7 ng/mL Normal 30-100 [facility] Comment on above: Result Comment: Vitamin D status 25 [place] Vitamin D Deficiency <20 ng/mL Insufficiency 20-29 ng/mL Sufficiency 30-100 ng/mL Toxicity >100 ng/mL NOTE: A pediatric reference range has not been established by the valve fitter of this kit. The [place] [employer] recommends a Vitamin D level of = or >20ng/mL in infants and children. Performed By: #### 1 7861-6, 19188-7, 2731-8, 51011-2 #### [facility] ([id number]) [address] [place] [address] Albumin [Mass/volume] in Ser um or Plasma by Bromocresol green (BCG) dye binding methoOrdered By: Jean Quick on 03-26-2023 Albumin BCG dye [Mass/Vol] 4.3 g/dL 3.5-5.7 [facility] Calcium [Mass/volume] in Ser um or PlasmaOrdered By: Jean Quick on 03-26-2023 Calcium [Mass/Vol] 10.5 mg/dL High 8.6-10.3 [facility] Comment on above: Performed By: #### R ENAL, MG, PTH, [id number] #### [facility] [address] Carbon dioxide, total [Moles /volume] in Serum or PlasmaOrdered By: Jean Quick on 03-26-2023 CO2 [Moles/Vol] 29.4 mmol/L Normal 21.0-31.0 [facility] Comment on above: Performed By: #### R ENAL, MG, PTH, [id number] #### [facility] [address] [place] [address] [place] Chloride [Moles/volume] in S rosalind or PlasmaOrdered By: Jena Quick on 03-26-2023 Chloride [Moles/Vol] 104 mmol/L Normal 98-107 [facility] Comment on above: Performed By: #### R ENAL, MG, PTH, [id number] #### [facility] [address] [place] [address] [place] Creatinine [Mass/volume] in Serum or PlasmaOrdered By: Jean Quick on 03-26-2023 Creatinine [Mass/Vol] 0.79 mg/dL Normal 0.60-1.20 [facility] Comment on above: Performed By: #### R ENAL, MG, PTH, [id number] #### [facility] [address] [place] [address] [place] Glucose [Mass/volume] in Ser um or PlasmaOrdered By: Jean Quick on 03-26-2023 Glucose [Mass/Vol] 136 mg/dL High 70-100 [facility] Comment on above: ADA recommended refe rence rangeRandom Glucose Reference Range is dependent on time and content of last meal. Glucose of more than 200 mg/dL in a nonstressed, ambulatory subject supports the diagnosis of Diabetes Mellitus. Result Comment: [facility] Glucose Reference Range is dependent on time and content of last meal. Glucose of more than 200 mg/dL in a nonstressed, ambulatory subject supports the diagnosis of Diabetes Mellitus. ADA recommended reference range Performed By: #### R ENAL, MG, PTH, [id number] #### [address] Magnesium [Mass/volume] in S rosalind or PlasmaOrdered By: Jean Quick on 03-26-2023 Magnesium [Mass/Vol] 1.6 mg/dL Low 1.9-2.7 [facility] Comment on above: Performed By: #### R ENAL, MG, PTH, [id number] #### [address] No Panel InformationOrdered By: Jean Quick on 03-26-2023 Estimated GFR (CKD-EPI) > 60.0 mL/Min [facility] Creatinine Clearance (Chem N/A [facility] Parathyrin.intact [Mass/volu me] in Serum or PlasmaOrdered By: Jean Quick on 03-26-2023 Parathyrin.intact [Mass/Vol] 105.1 pg/mL [facility] Parathyroid Hormone Intacton 03-26-2023 Parathyroid Hormone Intact 105.1 pg/mL High The Replaced By [facility] Comment on above: Result Comment: PERF ORMED BY: [place] [address] PATHOLOGIST CLERK CHECKER EZEQUIEL FIGUEREDO M.D. Performed By: #### R ENAL, MG, PTH, [id number] #### [address] Phosphate [Mass/volume] in S rosalind or PlasmaOrdered By: Jean Quick on 03-26-2023 Phosphate [Mass/Vol] 3.1 mg/dL Normal 2.5-4.5 [facility] Comment on above: Performed By: #### R ENAL, MG, PTH, [id number] #### [address] Potassium [Moles/volume] in Serum or PlasmaOrdered By: Jean Quick on 03-26-2023 Potassium [Moles/Vol] 4.8 mmol/L Normal 3.5-5.1 [facility] Comment on above: Performed By: #### R ENAL, MG, PTH, [id number] #### [address] Renal Function Panelon 03-26 Albumin [Mass/Vol] 4.3 g/dL Normal 3.5-5.7 [facility] Comment on above: Performed By: #### R ENAL, MG, PTH, [id number] #### [address] GFR/1.73 sq M.predicted MDRD (S/P/Bld) [Vol rate/Area] mL/min/{1.73_m2} Normal [facility] Comment on above: Performed By: #### R ENAL, MG, PTH, [id number] #### [address] Serum or plasma anion gap de terminationOrdered By: Jean Quick on 03-26-2023 Anion gap [Moles/Vol] 11.4 mmol/L Normal 6.0-15.0 [facility] Comment on above: Performed By: #### R ENAL, MG, PTH, [id number] #### [address] Sodium [Moles/volume] in Ser um or PlasmaOrdered By: Jean Quick on 03-26-2023 Sodium [Moles/Vol] 140 mmol/L Normal 136-145 [facility] Comment on above: Performed By: #### R ENAL, MG, PTH, [id number] #### [address] Urea nitrogen [Mass/volume] in Serum or PlasmaOrdered By: Jean Quick on 03-26-2023 Urea nitrogen [Mass/Vol] 8 mg/dL Normal 7-25 [facility] Comment on above: Performed By: #### R ENAL, MG, PTH, [id number] #### [facility] [address] [id number] [facility] Vitamin D 25 Hydroxy Totalon 03-26-2023 Vitamin D 25 Hydroxy Total 38.1 ng/mL Normal 30-100 [facility] Comment on above: Result Comment: JUAN PABLO MIN D STATUS 25([place])VITAMIN D RANGE (ng/mL) Deficient <20 Insufficient 20 to <30 Sufficient 30 to 100 Reference: Magali Oliveros, Yumiko SCHWARZ, et al. Evaluation,treatment, and prevention of vitamin D deficiency; an Endocrine Society clinical practice guideline. JCEM. 2010; 96(7):1911-30. PERFORMED BY: [place] [address] PATHOLOGIST CLERK CHECKER EZEQUIEL FIGUEREDO M.D. Performed By: #### R ENAL, MG, PTH, [id number] #### [facility] [address] [place], [place] [id number] [facility] Vitamin D+Metabolites [Mass/ volume] in Serum or PlasmaOrdered By: Jean Quick on 03-26-2023 Vitamin D+Metabolites [Mass/Vol] 38.1 ng/mL 30-100 [facility] Comment on above: VITAMIN D STATUS 25( [place])VITAMIN D RANGE (ng/mL) Deficient <20 Insufficient 20 to <30Sufficient 30 to 100Reference: Magali Oliveros, Yumiko SCHWARZ, et al. Evaluation,treatment, and prevention of vitamin D deficiency; an Endocrine Society clinical practice guideline. JCEM. 2010; 96(7):1911-30. Reminderson 09-03-2022 Reminders --- From: [facility] [facility] To: [facility]O - Reminders/Recalls; Sent: 09/03/2022 18:05:18 EDT Show up: 07/28/2029 18:05:00 EDT Subject: Ambulatory Reminder Due Date/Time: 08/27/2029 18:05:00 EDT Reminder/Recall Repeat colonoscopy in 7 years(2029) due to tubular adenoma Normal [facility] XR DEXA BONE DENSITYon 09-02 XR [...] [facility] Outside Colonoscopyon 2022 Outside Colonoscopy [id number]#[id number]:127 Normal [facility] Physician Orderon 08-27-2022 Physician Order [id number]#[id number]:127 Normal [facility] CULTURE URINEon 08-12-2022 CULTURE URINE Culture Observations: NO GROWTH. Normal [facility] Comment on above: Performed By: #### T SH, FT3 #### [facility] [address] [address] [address] Herve Machado UA RANDOM W/MICROSCOPICon BACTERIA NONE SEEN Normal NONE SEEN [facility] Comment on above: Performed By: #### T SH, FT3 #### [facility] [address] [address] [address] Herve Machado Bilirubin Ql (U) Negative Normal NEGATIVE [facility] Comment on above: Performed By: #### T SH, FT3 #### [facility] [address] [place] [address] Dr. Herve Machado CAST NONE SEEN Normal NONE SEEN [facility] Comment on above: Performed By: #### T , FT3 #### [facility] [address] [place] [address] Dr. Herve Machado Clarity (U) CLEAR Normal CLEAR [facility] Comment on above: Performed By: #### T SH, FT3 #### [facility] [address] [place] [address] Dr. Herve Machado Color (U) LT. YELLOW Normal YELLOW [facility] Comment on above: Performed By: #### T , FT3 #### [facility] [address] [place] [address] Dr. Herve Machado Crystals LM Nom (Urine sed) NONE SEEN Normal NONE SEEN [facility] Comment on above: Performed By: #### T , FT3 #### [facility] [address] [place] [address] Dr. Herve Machado Epithelial cells LM Ql (Urine sed) RARE Normal NONE SEEN /RARE [facility] Comment on above: Performed By: #### T , FT3 #### [facility] [address] [place] [address] Dr. Herve Machado Glucose Ql (U) 500 mg/dl Abnormal NEGATIVE [facility] Comment on above: Performed By: #### T , FT3 #### [facility] [address] [place] [address] Dr. Herve Machado Hemoglobin Ql (U) Negative Normal NEGATIVE [facility] Comment on above: Performed By: #### T , FT3 #### [facility] [address] [place] [address] Dr. Herve Machado Ketones Ql (U) Negative Normal NEGATIVE [facility] Comment on above: Performed By: #### T SH, FT3 #### [facility] [address] [place] [address] Dr. Herve Machado LEUKOCYTES Negative Normal NEGATIVE [facility] Comment on above: Performed By: #### T SH, FT3 #### [facility] [address] [place] [address] Dr. Herve Machado MUCOUS NONE SEEN Normal NONE SEEN [facility] Comment on above: Performed By: #### T SH, FT3 #### [facility] [address] [place] [address] Dr. Herve Machado Nitrite Ql (U) Negative Normal NEGATIVE [facility] Comment on above: Performed By: #### T SH, FT3 #### [facility] [address] [place] [address] Dr. Herve Machado pH (U) 5.0 [pH] Normal 5-9 [facility] Comment on above: Performed By: #### T SH, FT3 #### [facility] [address] [place] [address] Dr. Herve Machado RBC 0-2 Normal 0-2 [facility] Comment on above: Performed By: #### T SH, FT3 #### [facility] [address] [place] [address] Dr. Herve Machado SPEC GRAVITY 1.020 Normal 1.005-<=1.025 [facility] Comment on above: Performed By: #### T SH, FT3 #### [facility] [address] [place] [address] Dr. Herve Machado UA PROTEIN Negative Normal NEGATIVE/ TRACE [facility] Comment on above: Performed By: #### T SH, FT3 #### [facility] [address] [place] [address] Dr. Herve Machado Urobilinogen Qn (U) 0.2 {Connie'U}/dL Normal 0.2 - 1. 0 [facility] Comment on above: Performed By: #### T SH, FT3 #### [facility] [address] [place] [address] Dr. Herve Machado WBC NONE SEEN Normal NONE SEEN [facility] Comment on above: Performed By: #### T SH, FT3 #### [facility] [address] [place] [address] Dr. Herve Machado Consent for Procedure/Surger yon 08-05-2022 Consent for Procedure/Surgery [id number]:127 Normal [facility] Ambulatory Visit Summaryon 0 08-02-2022 Ambulatory Visit Summary EMILY ADORNO :1955 Visit Date:08/02/2022 Ambulatory Visit Instructions [...] See instructions Prior to colonoscopy. Pickup at [facility] Unchanged alendronate (alendronate 35 mg oral tablet) [...] physician if questions or concerns Pharmacy Information [facility]: [address] [place], [place] [id number] [phone] Allergies penicillins (unknown) Problems Ongoing - Any [...] including vitamins, herbs, eye drops, creams, and ocrc-kji-zwndwcs medicines. ? Any problems you or family [...] anything starting (more content not included)... Normal [facility] Gastroenterology Office/Clin ic Noteon 08-02-2022 [...] in 2013 she had previous colonoscopy in [place], [place] that showed polyps- no record to [...] 1 EA, Refill(s) 0, Prior to colonoscopy., [facility], 139.7, cm, 08/02/22 [...] 08/02/2022 Immunizations Vaccine Date Status SARS-CoV-2 (COVID-19) mRNAMUL.[id number] 04/23/2022 Recorded SARSCoV2 mRNA(tozinamer-tri s-sucros) vac 07/30/2021 [...] Recorded influenza, whole 02/06/2009 Recorded Normal [facility] Comment on above: Result Comment: [...] including vitamins, herbs, eye drops, creams, and zhbr-vsv-dmuqmez medicines. ? Any problems you or family [...] air t (more content not included)... Normal [facility] Provider Letteron 07-16-2022 Provider Letter July 16, 2022 EM[address] ADORNO [address] [place] [id number] EMILY ADORNO 1955 Dear Emily, We have [...] your prompt attention to this matter. Sincerely, [facility]. Normal [facility] CBC AUTO DIFFon 07-15-2022 BASO # 0.0 103/ul Normal 0.0-0.1 [facility] Comment on above: Performed By: #### C BC #### [facility] [address] [place] [address] Dr. Herve Machado Basophils/100 WBC (Bld) 0.4 % Normal 0.2-2.0 [facility] Comment on above: Performed By: #### C BC #### [facility] [address] [place] [address] Dr. Herve Machado EO # 0.2 103/ul Normal 0.0-0.7 [facility] Comment on above: Performed By: #### C BC #### [facility] [address] [place] [address] Dr. Hreve Machado Eosinophils/100 WBC (Bld) 2.7 % Normal 0.9-7.0 [facility] Comment on above: Performed By: #### C BC #### [facility] [address] [place] [address] Dr. Herve Machado Erythrocyte distribution width (RBC) [Ratio] 12.3 % Normal 11.0-15.0 [facility] Comment on above: Performed By: #### C BC #### [facility] [address] [place] [address] Dr. Herve Machado Hematocrit (Bld) [Volume fraction] 43.8 % Normal 36.0-48.0 [facility] Comment on above: Performed By: #### C BC #### [facility] [address] [place] [address] Dr. Herve Machado Hemoglobin (Bld) [Mass/Vol] 14.1 g/dL Normal 12.0-16.0 [facility] Comment on above: Performed By: #### C BC #### [facility] [address] [place] [address] Dr. Herve Machado IG # 0.01 10e3/ul Normal 0.00-0.03 [facility] Comment on above: Performed By: #### C BC #### [facility] [address] [place] [address] Dr. Herve Machado IG % 0.1 % Normal 0.0-0.5 [facility] Comment on above: Performed By: #### C BC #### [facility] [address] [place] [address] Dr. Herve Machado LYMPH # 1.7 103/ul Normal 1.2-3.8 [facility] Comment on above: Performed By: #### C BC #### [facility] [address] [place] [address] Dr. Herve Machado Lymphocytes/100 WBC (Bld) 23.6 % Normal 20.5-60.0 [facility] Comment on above: Performed By: #### C BC #### [facility] [address] [place] [address] Dr. Herve Machado MANUAL DIFF REQ NO Normal [facility] Comment on above: Performed By: #### C BC #### [facility] [address] [place] [address] Dr. Herve Machado MCH (RBC) [Entitic mass] 31.1 pg Normal 26.7-34.0 [facility] Comment on above: Performed By: #### C BC #### [facility] [address] [place] [address] Dr. Herve Machado MCHC (RBC) [Mass/Vol] 32.2 g/dL Normal 29.9-35.2 [facility] Comment on above: Performed By: #### C BC #### [facility] [address] [place] [address] Dr. Herve Machado MCV (RBC) [Entitic vol] 96.5 fL Normal 81.0-99.0 [facility] Comment on above: Performed By: #### C BC #### [facility] [address] [place] [address] Dr. Herve Machado MONO # 0.4 103/ul Normal 0.3-0.8 [facility] Comment on above: Performed By: #### C BC #### [facility] [address] [place] [address] Dr. Herve Machado Monocytes/100 WBC (Bld) 5.8 % Normal 1.7-12.0 [facility] Comment on above: Performed By: #### C BC #### [facility] [address] [place] [address] Dr. Herve Machado NEUT # 4.9 103/ul Normal 1.4-6.5 [facility] Comment on above: Performed By: #### C BC #### [facility] [address] [place] [address] Dr. Herve Machado Neutrophils/100 WBC (Bld) 67.4 % Normal 43.0-75.0 [facility] Comment on above: Performed By: #### C BC #### [facility] [address] [place] [address] Dr. Herve Machado Platelet mean volume (Bld) [Entitic vol] 9.9 fL Normal 9.5-13.5 [facility] Comment on above: Performed By: #### C BC #### [facility] [address] [place] [address] Dr. Herve Machado PLT 229 103/ul Normal 150-450 [facility] Comment on above: Performed By: #### C BC #### [facility] [address] [place] [address] Dr. Herve Machado RBC 4.54 106/ul Normal 4.20-5.40 [facility] Comment on above: Performed By: #### C BC #### [facility] [address] [place] [address] Dr. Herve Machado WBC 7.3 103/ul Normal 4.0-11.0 [facility] Comment on above: Performed By: #### C BC #### [facility] [address] [place] [address] Dr. Herve Machado GLYCOHEMOGLOBIN A1Con 2022 ADA RECOMMENDATION SEE BELOW Normal [facility] Comment on above: Result Comment: ADA RECOMMENDED LIMIT 4.0 - 6.0 ADA THERAPEUTIC TARGET < 7.0 ACTION SUGGESTED > 7.0 Performed By: #### T , FT3 #### [facility] [address] [address] [address] Herve Machado Glucose [Mass/Vol] 160 mg/dL Normal [facility] Comment on above: Performed By: #### T SH, FT3 #### [facility] [address] [address] [address] Herve Machado HbA1c (Bld) [Mass fraction] 7.2 % Critically high 4.5-6.2 [facility] Comment on above: Performed By: #### T SH, FT3 #### [facility] [address] [place] [address] Dr. Herve Machado LIPID PROFILEon 07-15-2022 CHOL-HDL RATIO NORM SEE BELOW Normal [facility] Comment on above: Result Comment: 3.3 - 4.4 LOW RISK 4.4 - 7.1 AVERAGE RISK 7.1 - 11.0 MODERATE RISK >11.0 HIGH RISK Performed By: #### T SH, FT3 #### [facility] [address] [place] [address] Dr. Herve Machado Cholesterol [Mass/Vol] 136 mg/dL Normal <=200 [facility] Comment on above: Performed By: #### T SH, FT3 #### [facility] [address] [place] [address] Dr. Herve Machado Cholesterol in HDL [Mass/Vol] 51 mg/dL Normal 40-60 [facility] Comment on above: Performed By: #### T SH, FT3 #### [facility] [address] [place] [address] Dr. Herve Machado Cholesterol in LDL [Mass/Vol] 68.6 mg/dL Normal [facility] Comment on above: Performed By: #### T SH, FT3 #### [facility] [facility] [address] [place] [address] Dr. Herve Machado Cholesterol.total/Cholest rivas in HDL [Mass ratio] 2.7 {ratio} Normal [facility] Comment on above: Performed By: #### T SH, FT3 #### [facility] [address] [place] [address] Dr. Herve Machado HDL NORMAL > or = 60 mg/dl - LOW CARDIOVASCULAR RISK <40 mg/dl - HIGH CARDIOVASCULAR RISK Normal [facility] Comment on above: Performed By: #### T SH, FT3 #### [facility] [id number] Herve Machado LDL CALC NORMAL SEE BELOW Normal [facility] Comment on above: Result Comment: <100 mg/dl OPTIMAL 100 - 129 mg/dl NEAR OR ABOVE OPTIMAL 130 - 159 mg/dl BORDERLINE HIGH 160 - 189 mg/dl HIGH >190 mg/dl VERY HIGH Performed By: #### T SH, FT3 #### [facility] [address] [address] [address] eHrve Machado Triglyceride [Mass/Vol] 82 mg/dL Normal <=150 [facility] Comment on above: Performed By: #### T SH, FT3 #### [facility] [address] [place] [address] Dr. Herve Machado VLDL CALC 16.4 mg/dL Normal [facility] Comment on above: Performed By: #### T SH, FT3 #### [facility] [address] [place] [address] Dr. Herve Machado MICROALBUMIN, RAND URon 06-20 mALB <1.3 Normal <=30.0 [facility] Comment on above: Performed By: #### T SH, FT3 #### [facility] [address] [place] [address] Dr. Herve Machado PROF 14(COMP METB)on 023 Albumin [Mass/Vol] 3.6 g/dL Normal 3.4-5.0 [facility] Comment on above: Performed By: #### T SH, FT3 #### [facility] [id number] Herve Machado Albumin/Globulin [Mass ratio] 1.1 {ratio} Normal [facility] Comment on above: Performed By: #### T SH, FT3 #### [facility] [address] [address] [address] Herve Machado ALP [Catalytic activity/Vol] 64 U/L Normal 46-116 [facility] Comment on above: Performed By: #### T SH, FT3 #### [facility] [address] [address] [address] Herve Machado ALT [Catalytic activity/Vol] 21 U/L Normal 14-59 [facility] Comment on above: Performed By: #### T SH, FT3 #### [facility] [address] [address] [address] Herve Machado Anion gap [Moles/Vol] 11.2 mmol/L Normal [facility] Comment on above: Performed By: #### T SH, FT3 #### [facility] [address] [address] [address] Herve Machado AST [Catalytic activity/Vol] 18 U/L Normal 15-37 [facility] Comment on above: Performed By: #### T SH, FT3 #### [facility] [address] [place] [address] Dr. Herve Machado Bilirubin [Mass/Vol] 0.6 mg/dL Normal 0.2-1.0 [facility] Comment on above: Performed By: #### T SH, FT3 #### [facility] [address] [address] [address] Herve Machado Calcium [Mass/Vol] 10.2 mg/dL Critically high 8.5-10.1 [facility] Comment on above: Performed By: #### T SH, FT3 #### [facility] [address] [address] [address] Herve Machado Chloride [Moles/Vol] 107 mmol/L Normal 98-107 [facility] Comment on above: Performed By: #### T SH, FT3 #### [facility] [address] [address] [address] Herve Machado CO2 [Moles/Vol] 28.3 mmol/L Normal 21.0-32.0 [facility] Comment on above: Performed By: #### T SH, FT3 #### [facility] [address] [address] [address] Herve Machado Creatinine [Mass/Vol] 0.66 mg/dL Normal 0.55-1.02 [facility] Comment on above: Performed By: #### T SH, FT3 #### [facility] [address] [address] [address] Herve Machado EGFR-AF BOTSWANAN >60 Normal >=60 [facility] Comment on above: Performed By: #### T SH, FT3 #### [facility] [address] [address] [address] Herve Machado EGFR-NON AF BOTSWANAN >60 Normal >=60 [facility] Comment on above: Performed By: #### T SH, FT3 #### [facility] [address] [address] [address] Herve Machado Globulin (S) [Mass/Vol] 3.3 g/dL Normal [facility] Comment on above: Performed By: #### T SH, FT3 #### [facility] [address] [place] [address] Dr. Herve Machado Glucose [Mass/Vol] 154 mg/dL Critically high 74-106 [facility] Comment on above: Performed By: #### T SH, FT3 #### [facility] [address] [place] [address] Dr. Herve Machado Potassium [Moles/Vol] 4.5 mmol/L Normal 3.5-5.1 [facility] Comment on above: Performed By: #### T SH, FT3 #### [facility] [address] [place] [address] Dr. Herve Machado Protein [Mass/Vol] 6.9 g/dL Normal 6.4-8.2 [facility] Comment on above: Performed By: #### T SH, FT3 #### [facility] [address] [address] [address] Herve Machado Sodium [Moles/Vol] 142 mmol/L Normal 136-145 [facility] Comment on above: Performed By: #### T SH, FT3 #### [facility] [address] [address] [address] Herve Machado Urea nitrogen [Mass/Vol] 11.0 mg/dL Normal 7.0-18.0 [facility] Comment on above: Performed By: #### T , FT3 #### [facility] [address] [place] [address] Dr. Herve Machado Urea nitrogen/Creatinine [Mass ratio] 16.7 mg/mg Normal [facility] Comment on above: Performed By: #### T SH, FT3 #### [facility] [address] [place] [address] Dr. Herve Machado UA RANDOM W/MICROSCOPICon BACTERIA MODERATE Abnormal NONE SEEN [facility] Comment on above: Performed By: #### U AMIC #### [facility] [address] [place] [address] Dr. Herve Machado Bilirubin Ql (U) Negative Normal NEGATIVE [facility] Comment on above: Performed By: #### U AMIC #### [facility] [address] [place] [address] Dr. Herve Machado CAST NONE SEEN Normal NONE SEEN [facility] Comment on above: Performed By: #### U AMIC #### [facility] [address] [place] [address] Dr. Herve Machado Clarity (U) CLEAR Normal CLEAR [facility] Comment on above: Performed By: #### U AMIC #### [facility] [address] [place] [address] Dr. Herve Machado Color (U) LT. YELLOW Normal YELLOW [facility] Comment on above: Performed By: #### U AMIC #### [facility] [address] [place] [address] Dr. Herve Machado Crystals LM Nom (Urine sed) NONE SEEN Normal NONE SEEN [facility] Comment on above: Performed By: #### U AMIC #### [facility] [address] [place] [address] Dr. Herve Machado Epithelial cells LM Ql (Urine sed) FEW Abnormal NONE SEEN /RARE [facility] Comment on above: Performed By: #### U AMIC #### [facility] [address] [place] [address] Dr. Herve Machado Glucose Ql (U) Negative Normal NEGATIVE [facility] Comment on above: Performed By: #### U AMIC #### [facility] [address] [address] [address] Herve Machado Hemoglobin Ql (U) Negative Normal NEGATIVE [facility] Comment on above: Performed By: #### U AMIC #### [facility] [address] [address] [address] Herve Machado Ketones Ql (U) Negative Normal NEGATIVE [facility] Comment on above: Performed By: #### U AMIC #### [facility] [address] [address] [address] Herve Machado LEUKOCYTES Negative Normal NEGATIVE [facility] Comment on above: Performed By: #### U AMIC #### [facility] [address] [address] [address] Herve Machado MUCOUS NONE SEEN Normal NONE SEEN [facility] Comment on above: Performed By: #### U AMIC #### [facility] [address] [address] [address] Herve Machado Nitrite Ql (U) Positive Abnormal NEGATIVE [facility] Comment on above: Performed By: #### U AMIC #### [facility] [address] [address] [address] Herve Machado pH (U) 6.0 [pH] Normal 5-9 [facility] Comment on above: Performed By: #### U AMIC #### [facility] [address] [address] [address] Herve Machado RBC 0-2 Normal 0-2 [facility] Comment on above: Performed By: #### U AMIC #### [facility] [address] [address] [address] Herve Machado SPEC GRAVITY 1.010 Normal 1.005-<=1.025 [facility] Comment on above: Performed By: #### U AMIC #### [facility] [address] [place] [address] Dr. Herve Machado UA PROTEIN Negative Normal NEGATIVE/ TRACE [facility] Comment on above: Performed By: #### U AMIC #### [facility] [address], [place] [address] Dr. Herve Machado Urobilinogen Qn (U) 0.2 {Connie'U}/dL Normal 0.2 - 1. 0 [facility] Comment on above: Performed By: #### U AMIC #### [facility] [address], [place] [address] Dr. Herve Machado WBC 2-5 Abnormal NONE SEEN [facility] Comment on above: Performed By: #### U AMIC #### [facility] [address], [place] [address] Dr. Herve Machado Physician Referralon 023 Physician Referral [phone] [id number] Normal [facility] MG MAMM SCREEN 3D VEDA CADon 07-04-2022 MG MAMM SCREEN 3D VEDA CAD Patient: EMILY ADORNO Exam Date: 07/04/2022 : 1955 Gender:F Ordering : [facility] Admission #: [id number] Family : Order #: [id number] CLICK HERE TO VIEW EXAM RADIOLOGY REPORT [...] pancreatic cancer at age 64. LOCATION: [facility] BREAST COMPOSITION: Scattered areas fibroglandular density. [...] Meade MD on 07/04/2022 at 10:24 Normal [facility] GLYCOHEMOGLOBIN A1Con 2021 ADA RECOMMENDATION SEE BELOW Normal [facility] Comment on above: Result Comment: ADA RECOMMENDED LIMIT 4.0 - 6.0 ADA THERAPEUTIC TARGET < 7.0 ACTION SUGGESTED > 7.0 Performed By: #### A 1C #### [facility] [address] [place] [address] Dr. Herve Machado Glucose [Mass/Vol] 189 mg/dL Normal [facility] Comment on above: Performed By: #### A 1C #### [facility] [address] [place] [address] Dr. Herve Machado HbA1c (Bld) [Mass fraction] 8.2 % Critically high 4.5-6.2 [facility] Comment on above: Performed By: #### A 1C #### [facility] [address] [place] [address] Dr. Herve Machado FREE T3on 02-28-2022 FREE T3 2.44 pg/mlL Normal 2.18-3.98 [facility] Comment on above: Performed By: #### T SH, FT3 #### [facility] [address] [place] [address] Dr. Herve Machado FREE T4on 02-28-2022 Free T4 [Mass/Vol] 1.48 ng/dL Critically high 0.76-1.46 [facility] Comment on above: Performed By: #### T SH, FT3 #### [facility] [address] [place] [address] Dr. Herve Machado TSHon 02-28-2022 TSH 1.115 uIU/mL Normal 0.358-3.740 [facility] Comment on above: Performed By: #### T SH, FT3 #### [facility] [address] [place] [address] Dr. Herve Machado FREE T3on 11-27-2021 FREE T3 2.54 pg/mlL Normal 2.18-3.98 [facility] Comment on above: Performed By: #### T SH, FT3 #### [facility] [address] [place] [address] Dr. Herve Machado FREE T4on 11-27-2021 Free T4 [Mass/Vol] 1.85 ng/dL Critically high 0.76-1.46 [facility] Comment on above: Performed By: #### T SH, FT3 #### [facility] [address] [place] [address] Dr. Herve Machado TSHon 11-27-2021 TSH 0.228 uIU/mL Critically low 0.358-3.740 [facility] Comment on above: Performed By: #### T SH, FT3 #### [facility] [address] [place] [address] Dr. Herve Machado FREE T3on 10-25-2021 FREE T3 2.50 pg/mlL Normal 2.18-3.98 [facility] Comment on above: Performed By: #### T SH, FT3 #### [facility] [address] [place] [address] Dr. Herve Machado FREE T4on 10-25-2021 Free T4 [Mass/Vol] 1.61 ng/dL Critically high 0.76-1.46 [facility] Comment on above: Performed By: #### T SH, FT3 #### [facility] [address] [place] [address] Dr. Herve Machado TSHon 10-25-2021 TSH 1.949 uIU/mL Normal 0.358-3.740 [facility] Comment on above: Performed By: #### T SH, FT3 #### [facility] [address] [place] [address] Dr. Herve Machado FREE T4on 09-28-2021 Free T4 [Mass/Vol] 1.50 ng/dL Critically high 0.76-1.46 [facility] Comment on above: Performed By: #### T SH, FT3 #### [facility] [address] [place] [address] Dr. Herve Machado LIPID PROFILEon 09-28-2021 CHOL-HDL RATIO NORM SEE BELOW Normal [facility] Comment on above: Result Comment: 3.3 - 4.4 LOW RISK 4.4 - 7.1 AVERAGE RISK 7.1 - 11.0 MODERATE RISK >11.0 HIGH RISK Performed By: #### L IPID, TSH #### [facility] [address] [address] [address] Herve Machado Cholesterol [Mass/Vol] 223 mg/dL Critically high <=200 [facility] Comment on above: Performed By: #### L IPID, TSH #### [facility] [address] [address] [address] Herve Machado Cholesterol in HDL [Mass/Vol] 53 mg/dL Normal 40-60 [facility] Comment on above: Performed By: #### L IPID, TSH #### [facility] [address] [place] [address] Dr. Herve Machado Cholesterol in LDL [Mass/Vol] 152.2 mg/dL Normal [facility] Comment on above: Performed By: #### L IPID, TSH #### [facility] [address] [address] [address] Herve Machado Cholesterol.total/Cholest rivas in HDL [Mass ratio] 4.2 {ratio} Normal [facility] Comment on above: Performed By: #### L IPID, TSH #### [facility] [address] [place] [address] Dr. Herve Machado HDL NORMAL > or = 60 mg/dl - LOW CARDIOVASCULAR RISK <40 mg/dl - HIGH CARDIOVASCULAR RISK Normal [facility] Comment on above: Performed By: #### L IPID, TSH #### [facility] [address] [place] [address] Dr. Herve Machado LDL CALC NORMAL SEE BELOW Normal [facility] Comment on above: Result Comment: <100 mg/dl OPTIMAL 100 - 129 mg/dl NEAR OR ABOVE OPTIMAL 130 - 159 mg/dl BORDERLINE HIGH 160 - 189 mg/dl HIGH >190 mg/dl VERY HIGH Performed By: #### L IPID, TSH #### [facility] [address] [address] [address] Herve Machado Triglyceride [Mass/Vol] 89 mg/dL Normal <=150 [facility] Comment on above: Performed By: #### L IPID, TSH #### [facility] [address] [address] [address] Herve Machado VLDL CALC 17.8 mg/dL Normal [facility] Comment on above: Performed By: #### L IPID, TSH #### [facility] [address], [place] [address] Dr. Herve Machado TSHon 09-28-2021 TSH 1.423 uIU/mL Normal 0.358-3.740 [facility] Comment on above: Performed By: #### T SH, FT3 #### [facility] [address] [address] [address] Herve Machado TSH RANGE SEE BELOW Normal [facility] Comment on above: Result Comment: <0.3 4 UIU/ml HYPERTHYROID 0.34-5.60 UIU/ml EUTHYROID >5.60 UIU/ml HYPOTHYROID Performed By: #### T SH, FT3 #### [facility] [address] [address] [address] Herve Machado Encounters Encounter Date Encounter Type Care Provider Facility Start: 01-28-2024 End: 01-28-2024 Refill Stella Nieto LEHR ATTENDANT [facility] Comment on above: Anxiety in acute str ess reaction (CMS/HCC) (Primary Dx); Dental disease Start: 01-07-2024 Patient encounter procedure Stella Nieto LEHR ATTENDANT Work Phone: [facility] Start: 01-07-2024 End: 01-07-2024 ambulatory STELLA GERSON Not Available Start: 10-07-2023 End: 10-07-2023 ambulatory STELLA ANAHHOLZ Not Available Start: 09-25-2023 End: 09-25-2023 Patient encounter procedure Stella Nieto Work Phone: [facility] [place] Work Phone: Start: 09-25-2023 End: 09-25-2023 ambulatory Stella J Aichholz Work Phone: [facility] Work Phone: Start: 07-22-2023 End: 07-22-2023 ambulatory STELLA AICHHOLZ Not Available Start: 07-07-2023 End: 07-07-2023 ambulatory STELLA AICHHOLZ Not Available Start: 06-05-2023 End: 06-06-2023 ambulatory JEAN QUICK [facility] Start: 04-23-2023 End: 04-23-2023 ambulatory STELLA AICHHOLZ Not Available Start: 04-02-2023 End: 04-02-2023 ambulatory STELLA AICHHOLZ Not Available Start: 04-01-2023 End: 04-01-2023 ambulatory STELLA AICHHOLZ Not Available Start: 03-26-2023 End: 03-26-2023 Patient encounter procedure Stella Aichholz Work Phone: [facility] [place] Work Phone: Start: 03-26-2023 End: 03-26-2023 ambulatory Stella J Aichholz Work Phone: [facility] Work Phone: Start: 09-06-2022 ambulatory Faye Roche Facili ty:[facility] Start: 09-02-2022 End: 09-03-2022 ambulatory MICROBIAL SPECIALIST STELLA AICHHOLZ Facility: Start: 08-27-2022 End: 08-27-2022 Lab Drop off Dias SALAM [facility] Start: 08-27-2022 End: 08-28-2022 ambulatory Dias SALAM Facility:[facility] Start: 08-12-2022 End: 08-13-2022 ambulatory MICROBIAL SPECIALIST STELLA AICHHOLZ Facility: Start: 08-02-2022 End: 08-03-2022 ambulatory Faye A Melchor Facility:[facility] Start: 07-15-2022 End: 07-16-2022 ambulatory MICROBIAL SPECIALIST STELLA AICHHOLZ Facility: Start: 07-11-2022 ambulatory Faye Roche Facility :[facility] Start: 07-04-2022 End: 07-05-[address] LIZY MEADE Facility:[facility] Start: 04-04-2022 End: 04-05-2022 ambulatory ARLEEN RUSH GERSON Facility:[facility] Start: 02-28-2022 End: 03-01-2022 ambulatory MICROBIAL SPECIALIST STELLAClaus NIETO Facility:[facility] Start: 11-27-2021 End: 11-28-2021 ambulatory MICROBIAL SPECIALIST STELLA GERSON Facility:[facility] Start: 10-25-2021 End: 10-26-2021 ambulatory MICROBIAL SPECIALIST STELLA ELANAKassandra Facility:[facility] Start: 09-28-2021 End: 09-29-2021 ambulatory MICROBIAL SPECIALIST STELLA GERSON Facility:[facility] Start: 10-23-2017 End: 10-24-2017 Ambulatory DEFAULT PHYSICIAN Facility:[facility] Start: 10-13-2017 End: 10-14-2017 Ambulatory DEFAULT PHYSICIAN Facility:[facility] Procedures Date Procedure Procedure Detail Performing Clinician Start: 07-11-2023 Mammography Stella Mark calderón LEHR ATTENDANT Work Phone: Start: 08-27-2022 Colonoscopy Stella calderón LEHR ATTENDANT Work Phone: Plan of Treatment Date Care Activity Detail Author Start: 08-27-2032 Screening for malignant neoplasm of colon [facility] Start: 06-24-2025 Glaucoma screening Diabetes: R etinopathy Screening [facility] Start: 01-06-2025 Medicare Annual Wellness (AWV) Medicare Annual Wellness (AWV) [facility] Start: 08-13-2024 Urine screening for protein Diabetes: Urine Protein Screening [facility] Start: 07-10-2024 Screening for malignant neoplasm of breast Mammogram [facility] Start: 07-07-2024 End: 07-07-2024 Patient encounter procedure 07/07/2024 9:00 AM EDT Office Visit [facility] [address] [place] [address] Stella Nieto NP [address] [place] [address] [facility] Start: 03-29-2024 End: 03-29-2024 Patient encounter procedure 03/29/2024 9:10 AM EST Office Visit [facility] [address] [place] [address] Jean Quick MD [address] [place] [address] [facility] Start: 02-19-2024 Influenza vaccination Influenza Vacc ine (#1) [facility] Comment on above: Postponed from 12/20 (Patient Does Not Have Time) Start: 11-13-2023 Hemoglobin A1c measurement Diabetes: Hemoglobin A1C [facility] Start: 1955 Screening for malignant neoplasm of colon [facility] Immunizations Immunization Date Immunization Notes Care Provider Fa cili 01-14-2023 Influenza, Seasonal, Quadrivalent, Adjuvanted Stella Nieto LEHR ATTENDANT Work Phone: [facility] 01-14-2023 SARS-COV-2 (COVID-19 ) vaccine, mRNA, spike protein, LNP, PF, digna-sucrose, 30 mcg/0.3 mL Stella Nieto LEHR ATTENDANT Work Phone: [facility] 01-14-2023 influenza virus vaccine, unspecified formulation Stella Nieto LEHR ATTENDANT Work Phone: [facility] 04-23-[address] 12 Years [address] Older Stella Nieto LEHR ATTENDANT Work Phone: [facility] 04-23-2022 SARS-CoV-2 (COVID-19 ) [id number] Diasye OROZCO [facility] 07-30-2021 Pfizer Myles Cap SARS-CoV-2 Vaccination Stella Nieto LEHR ATTENDANT Work Phone: [facility] 07-30-2021 SARS-CoV-2 mRNA (pjwbiutadvz-cknd-mdlwu se) vaccine Dias SALAM [facility] 07-30-2021 SARS-CoV-2, Unspecified Stella Aichholz LEHR ATTENDANT Work Phone: [facility] 02-02-2021 influenza virus vaccine, unspecified formulation Dias SALAM [facility] 02-02-2021 Influenza, High-dose Seasonal, Quadrivalent, Preservative Free Stella Aichholz LEHR ATTENDANT Work Phone: [facility] 02-02-2021 pneumococcal conjuga te vaccine, 13 valent Dias SALAM [facility] 01-15-2021 SARS-CoV-2 (COVID-19 ) mRNA BNT-162b2 vax Dias SALAM [facility] 07-11-2020 SARS-CoV-2 (COVID-19 ) mRNA BNT-162b2 vax Dias SALAM [facility] 06-19-2020 SARS-CoV-2 (COVID-19 ) mRNA BNT-162b2 vax Dias SALAM [facility] 01-22-2020 influenza virus vaccine, unspecified formulation Dias SALAM [facility] 01-22-2020 Influenza, High-dose Seasonal, Quadrivalent, Preservative Free Stella Aichholz LEHR ATTENDANT Work Phone: [facility] 04-26-2019 influenza virus vaccine, unspecified formulation Dias SALAM [facility] 04-26-2019 Seasonal, quadrivale nt, recombinant, injectable influenza vaccine, preservative free Stella Aichholz LEHR ATTENDANT Work Phone: [facility] 02-06-2018 influenza virus vaccine, unspecified formulation Dias SALAM [facility] 02-06-2018 influenza, injectabl e, quadrivalent, preservative free Stella Aichholz LEHR ATTENDANT Work Phone: [facility] 01-30-2017 influenza virus vaccine, unspecified formulation Dias SALAM [facility] 01-30-2017 influenza, seasonal, injectable, preservative free Stella Aichholz LEHR ATTENDANT Work Phone: [facility] 01-30-2016 zoster vaccine, live Dias S ALAM [facility] 01-15-2016 influenza virus vaccine, unspecified formulation Dias SALAM [facility] 01-15-2016 influenza, seasonal, injectable, preservative free Stella Aichholz LEHR ATTENDANT Work Phone: [facility] 04-22-2012 influenza virus vaccine, whole virus Stella Aichholz LEHR ATTENDANT Work Phone: [facility] 04-22-2012 influenza, injectabl e, quadrivalent, contains preservative Stella Aichholz LEHR ATTENDANT Work Phone: [facility] 04-22-2012 influenza, whole Dias SALAM [facility] 02-06-2009 influenza virus vaccine, whole virus Stella Aichholz LEHR ATTENDANT Work Phone: [facility] 02-06-2009 influenza, injectabl e, quadrivalent, contains preservative Stella Aichholz LEHR ATTENDANT Work Phone: [facility] 02-06-2009 influenza, whole Dias SALAM [facility] Payers Date Payer Category Payer Self-pay [id number] 2019 Medicare MEDICARE MEDICAR E PART B [id number] 2019-[place] [address] [place] [address] Medicare [id number] 1959 Medicaid [id number] 1959 Medicare [id number] 1954 Unknown [id number] 2.16.840.1.091527.3.579.2.593 1954 Unknown [id number] 2.16.840.1.649707.3.579.2.593 1954 Unknown [id number] 2.16.840.1.248530.3.579.2.593 1954 Unknown [id number] 2.16.840.1.515678.3.579.2.593 1954 Unknown [id number] 2.16.840.1.296599.3.579.2.593 1954 Unknown [id number] 2.16.840.1.558406.3.579.2.593 1954 Unknown [id number] 2.16.840.1.438582.3.579.2.593 1954 Unknown [id number] 2.16.840.1.724318.3.579.2.593 1954 Unknown [id number] 2.16.840.1.179262.3.579.2.593 1954 Unknown [id number] 2.16.840.1.796457.3.579.2.727 1954 Unknown [id number] 2.16.840.1.651249.3.579.2.727 1954 Unknown [id number] 2.16.840.1.986654.3.579.2.727 1954 Unknown [id number] 2.16.840.1.199619.3.579.2.727 1954 Unknown [id number] 2.16.840.1.769842.3.579.2.727 1954 Unknown [id number] 2.16.840.1.152339.3.579.2.1286 1954 Unknown [id number] 2.16.840.1.481758.3.579.2.1259 1954 Unknown [id number] 2.16.840.1.995225.3.579.2.1259 1954 Unknown [id number] 2.16.840.1.187844.3.579.2.1259 1954 Unknown [id number] 2.16.840.1.372987.3.579.2.1259 1954 Unknown [id number] 2.16.840.1.489308.3.579.2.1259 1954 Unknown [id number] 2.16.840.1.853049.3.579.2.1259 1954 Unknown [id number] 2.16.840.1.457152.3.579.2.1259 Unknown Unknown [id number] 2.16.840.1.871474.3.579.2.531 Unknown [id number] 2.16.840.1.420274.3.579.2.531 Social History Date Type Detail Facility Start: 08-02-2022 End: 11-25-2022 Tobacco smoking status Never smoked tobacco (finding) [facility] Tobacco smoking status Never [facility] Start: 03-26-2023 End: 01-07-2024 Sex Assigned At Female [facility] Start: 1955 Sex Assigned At Female [facility] Start: 11-25-2022 Tobacco use and exposure Smokeless tobacco non-user [facility] Start: 01-07-2024 Alcoholic beverage intake Ex-drinker (finding) [facility] Start: 03-26-2023 End: 01-07-2024 History of Social function [facility] Within the last year , have you been afraid of your partner or ex-partner? No [facility] Are you now , , , , never or living with a partner? [facility] How often to you hav e a drink containing alcohol? Monthly or less [facility] How many standard drinks containing alcohol do you have on a typical day? 1 or 2 [facility] How often do you hav e 6 or more drinks on 1 occasion? Never [facility] Do you feel stress - tense, restless, nervous, or anxious, or unable to sleep at night because your mind is troubled all the time - these days [OSQ] Rather much [facility] (I/We) worried wheth er (my/our) food would run out before (I/we) got money to buy more. Never true [facility] Start: 11-25-2022 Tobacco Comment Boyfriend smokes [facility] Start: 11-23-2022 Alcohol Comment caffeine intake: 1-2 cups per day [facility] Start: 11-12-2022 Gender identity Identifies as female gender (finding) [facility] Start: 11-12-2022 Sexual orientation Heterosexual (finding) [facility] Medical Equipment Procedure Code Equipment Code Equipment Origin al Text Equipment Identifier Dates Once daily [id number] Start: 06-26-2023 Evaluation + Plan note Note Date & Type Note Facility Evaluation + Plan note No data available for this section [facility] Evaluation note Note Date & Type Note Facility Evaluation note No assessment information [facility] Work Phone: Evaluation note Note Date & Type Note Facility Evaluation note Diagnosis Anxiety in acute stress reaction (CMS/HCC)- Primary Dental disease Unspecified disorder of the teeth and supporting structures documented in this encounter [facility] Hospital Discharge instructions Note Date & Type Note Facility Hospital Discharge instructions No data available for this section [facility] Progress note Note Date & Type Note Facility Progress note No data available for this section [facility] Summary Purpose Family History Relationship Condition Age at Onset Recorded Date/T deborah father Diabetes mellitus Unknown Hypertension Unknown Unknown family member Unknown Not Specified Unknown History of stroke Unknown Diabetes mellitus Unknown Advance Directives Advance Directive Response Recorded Date/ Time Advance Directives No August 04, 2 019 12:23pm Advance Directive Response Recorded Date/ Time Advance Directives No August 04 019 1:23pm Chief Complaint and Reason for Visit Chief Complaint E83.52 E21.3 Additional Source Comments INFORMATION SOURCE (unrecogn ized section and content) DATE CREATED AUTHOR 10/24/2017 [facility] DATE CREATED AUTHOR AUTHOR'S ORGANIZ ATION 09/02/2022 [facility] DATE CREATED AUTHOR AUTHOR'S ORGANIZ ATION 09/04/2022 [facility] DATE CREATED AUTHOR AUTHOR'S ORGANIZ ATION 06/07/2023 [facility] DATE CREATED AUTHOR AUTHOR'S ORGANIZ ATION 10/08/2023 [facility] DATE CREATED AUTHOR AUTHOR'S ORGANIZ ATION 01/09/2024 [facility] EPIC Patient Care team informatio n [...] September 25, 2023 End: September 25, 2023 Marketing Ambassador Relationship Specialty Start Date End Date Ángel Iverson MD [address] [place] [id number] PCP - General Family Medicine 07/07/23 Stella Nieto NP [address] [place] [address] Nurse Practitioner Family Medicine 07/07/23 Goals (unrecognized section and content) Goals may [...] THE PRIMARY CLINICAL RECORDS. [facility] [employer] [facility]. provides no warranty or guarantee of the accuracy or completeness of information in this document.
[2024-02-03 14:39] LABS: Estimated Average Glucose 123 mg/dL; Glycohemoglobin A1C 5.9 % (4.5-6.2)
== END 2024-02-03 11:45 | disposition home or self-care (01) ==
LOC: LAB 11:46
PROVIDERS: PCP Nurse Practitioner; Visit Provider Nurse Practitioner
DX: E11.9 Type 2 diabetes mellitus without complications (principal)
CPT/HCPCS: 36415; 83036

== ENCOUNTER 2024-07-07 12:51 | Outpatient (OUT) | payer MEDICARE, SELFPAY ==
--- NOTE | 2024-07-07 12:58 | XR_ITS ---
[facility] [place] [id number] Patient Name: KEE MANUEL MRN: [id number] date: 1955 Sex: F Assigned Patient Location: LAB Current Patient Location: LAB Accession/Order Number: [id number] Exam Date: 07/07/2024 13:23 Report Date: 07/07/2024 13:24 At the request of: ADRI BARRAGAN NP Procedure: XR sacrum coccyx min 2V SACRUM AND COCCYX - - 3 views CLINICAL HISTORY: Pain In The Coccyx COMPARISON: None FINDINGS: SI joints demonstrate degenerative changes. Sacral foramina appear intact. Degenerative changes are noted involving the visualized lower lumbar spine. Bones are grossly demineralized. No displaced coccygeal fracture. XR/XR sacrum coccyx min 2V IMPRESSION: DEGENERATIVE CHANGES WITHOUT ACUTE BONY PROCESS. Impression dictated by: Humza Booker Jr., D.O.07/07/2024 1:24 PM Dictation Location: [place] [address] Electronically authenticated by: [id number] Y Date: 07/07/2024 13:24
--- OUTSIDE RECORDS SUMMARY | 2024-07-07 13:01 | XMS_ITS | CCD ---
Author Organization [facility] Care Team Providers Care Sales Project Engineer Name Role Phone PHYSICIAN, DEFAULT Unavailable Unavailable PHYSICIAN, DEFAULT Unavailable Unavailable PHYSICIAN, DEFAULT Unavailable Unavailable PHYSICIAN, DEFAULT Unavailable Unavailable AICHHOLZ, STELLA J Primary Care Physician AICHHOLZ, SANITARIAN STELLA Attending Unavailable AICHHOLZ, SANITARIAN STELLA Primary Care Unavailable AICHHOLZ, SANITARIAN STELLA Admitting Unavailable AICHHOLZ, SANITARIAN STELLA Consulting Unavailable AICHHOLZ, SANITARIAN STELLA Admitting Unavailable AICHHOLZ, SANITARIAN STELLA Attending Unavailable AICHHOLZ, SANITARIAN STELLA Primary Care Unavailable AICHHOLZ, SANITARIAN STELLA Consulting Unavailable DR GEORGINA HATCH Consulting Unavailable AICHHOLZ, SANITARIAN STELLA Attending Unavailable AICHHOLZ, SANITARIAN STELLA Primary Care Unavailable AICHHOLZ, SANITARIAN STELLA Admitting Unavailable AICHHOLZ, SANITARIAN STELLA Consulting Unavailable AICHHOLZ, SANITARIAN STELLA Attending Unavailable AICHHOLZ, SANITARIAN STELLA Primary Care Unavailable AICHHOLZ, SANITARIAN STELLA Referring Unavailable AICHHOLZ, SANITARIAN STELLA Admitting Unavailable AICHHOLZ, SANITARIAN STELLA Consulting Unavailable DR LIZY MEADE V Consulting Unavailable AICHHOLZ, SANITARIAN STELLA Primary Care Unavailable AICHHOLZ, SANITARIAN STELLA Attending Unavailable AICHHOLZ, SANITARIAN STELLA Admitting Unavailable AICHHOLZ, SANITARIAN STELLA Consulting Unavailable AICHHOLZ, SANITARIAN STELLA Consulting Unavailable AICHHOLZ, SANITARIAN STELLA Primary Care Unavailable AICHHOLZ, SANITARIAN STELLA Attending Unavailable AICHHOLZ, SANITARIAN STELLA Admitting Unavailable AICHHOLZ, SANITARIAN STELLA Consulting Unavailable AICHHOLZ, SANITARIAN STELLA Primary Care Unavailable AICHHOLZ, SANITARIAN STELLA Attending Unavailable AICHHOLZ, SANITARIAN STELLA Admitting Unavailable AICHHOLZ, SANITARIAN STELLA Consulting Unavailable AICHHOLZ, SANITARIAN STELLA Admitting Unavailable AICHHOLZ, SANITARIAN STELLA Primary Care Unavailable AICHHOLZ, SANITARIAN STELLA Attending Unavailable AICHHOLZ, SANITARIAN STELLA Consulting Unavailable AICHHOLZ, SANITARIAN STELLA Primary Care Unavailable AICHHOLZ, SANITARIAN STELLA Attending Unavailable AICHHOLZ, SANITARIAN STELLA Admitting Unavailable Faye Roche A Attending Unavailable Melchor, Faye A Attending Unavailable SALAM, Dias Referring Unavailable SALAM, Dias Attending Unavailable SALAM, Dias Attending Unavailable SALAM, Dias Admitting Unavailable Aichholz, Stella J Primary Care Provider [phone] MD Jean Quick Attending Provider JEAN QUICK Referring Unavailable AICHSACHIN STELLA J Primary Care Unavailable Lauren Nietoa J Primary Care Provider MD Jean Quick Attending Provider Ángel Iverson MD Primary Care Provider [phone] Aicamanda RECEIVABLE MANAGER, Stella Unavailable Jean Quick Attending Unavailable Abdelrahman, Ahmad Admitting Unavailable Aichkrishanz, Stella J Primary Care Unavailable Aichholz, Stella J Primary Care Unavailable Abdelrahman, Geoffd Attending Unavailable Abdelrahman, Ahmad Admitting Unavailable AICHHOLZ, STELLA Attending Unavailable AICHHOLZ, STELLA Attending Unavailable AICHHOLZ, STELLA Attending Unavailable AICHHOLZ, STELLA Attending Unavailable AICHHOLZ, STELLA Attending Unavailable ABDELRAHMAN, KITAMAD F Attending Unavailable ABDELRAHMAN, AHMAD F Referring Unavailable Allergies Allergy Classification Reported Allergen(s) Allergy Type Date of Onset Reaction(s) Facility (19 sources) Penicillins; Translations: [penicillins] Drug allergy 09-18-2013 [facility] Medications Current Medications Medication Drug Class(es) Dates Sig (Normalized) Sig (Original) alendronic acid 35 mg oral tablet (14 sources) Bisphosphonate Start: 10-07-2023 End: 12-30-2023 alendronate (Fosamax) 35 MG tablet Indications: Other [...] Acid 7540 MG / POLYETHYLENE GLYCOL 3350 57008 MG / Potassium Chloride 1200 MG / Sodium Ascorbate 51041 MG / Sodium Chloride 3200 MG Powder for Oral Solution) / 1 (POLYETHYLENE GLYCOL 3350 159888 MG / Potassium Chloride 1000 MG / Sodium Chlori (1 source) Osmotic Laxative, Vitamin C Start: 08-19-2022 Plenvu oral powder for reconstitution See Instructions, 1 EA, Refill(s) 0, samples given to patient (Rx), See physicians instructions prior to procedure. Start Date: 08/19/22 Status: Ordered aspirin 81 mg delayed release oral tablet (4 sources) Platelet Aggregation Inhibitor, Nonsteroidal Anti-inflammatory Drug Start: 10-07-2023 End: 01-07-2024 take 1 tablet by mouth once daily aspirin 81 MG EC tablet Indications: Type 2 diabetes mellitus without complications (CMS/HCC) Take 1 tablet (81 mg) by mouth Daily 90 tablet 1 10/07/2023 01/07/2024 Active Start: 03-24-2017 take 81 mg by mouth once daily aspirin 81 mg, Oral, Daily, Refills(s) 0, Prophylaxis Start Date: 03/24/17 Status: Ordered atorvastatin 80 mg oral tablet (17 sources) HMG-CoA Reductase Inhibitor Start: 11-10-2023 End: 05-31-2024 take 1 tablet by mouth in the evening atorvastatin (Lipitor) 80 MG tablet Indications: Mixed hyperlipidemia (CMS/HCC) Take 1 tablet (80 mg) by mouth in the evening 90 tablet 1 03/02/2024 Active Start: 03-24-2017 take 80 mg by mouth once daily atorvastatin 80 mg, Oral, Daily, Refills(s) 0, High cholesterol Start Date: 03/24/17 Status: Ordered cetirizine hydrochloride 10 mg oral tablet (13 sources) Histamine-1 Receptor Antagonist Start: 04-18-2024 End: 07-17-2024 take 1 tablet by mouth once daily cetirizine (ZyrTEC) 10 MG tablet Indications: Environmental allergies Take 1 tablet (10 mg) by mouth Daily 90 tablet 1 04/18/2024 07/17/2024 Active Start: 10-07-2023 take 1 tablet by ozzie once daily cetirizine (ZyrTEC) 10 MG tablet Indications: Environmental allergies Take 1 tablet (10 mg) by mouth Daily 30 tablet 5 10/07/2023 Active DULoxetine 30 mg delayed release oral capsule (15 sources) Serotonin and Norepinephrine Reuptake Inhibitor Start: 11-10-2023 End: 08-17-2024 take 1 capsule by mouth once daily DULoxetine (Cymbalta) [address] capsule Indications: Other specified anxiety disorders , Mild episode of recurrent major depressive disorder (HCC) (CMS/HCC) Take 1 capsule (30 mg) by mouth Daily 90 capsule 1 05/19/2024 08/17/2024 Active Start: 03-24-2017 take 30 mg by mouth once daily duloxetine 30 mg, Oral, Daily, Refills(s) 0, Depression Start Date: 03/24/17 Status: Ordered fluticasone propionate 0.05 mg/actuat metered dose nasal spray (1 source) Corticosteroid Start: 06-24-2024 End: 07-24-2024 take 2 spray(s) nasal route once daily fluticasone (Flonase) 50 MCG/ACT nasal spray Indications: Environmental allergies Administer 2 sprays into each nostril Daily Shake gently. Before first use, prime pump. After use, clean tip and replace cap. 16 g 2 06/24/2024 07/24/2024 Active ibuprofen 800 mg oral tablet (7 sources) Nonsteroidal Anti-inflammatory Drug Start: 02-03-2024 take 1 tablet by mouth in the morning, then take 1 tablet by mouth in the evening, then take 1 tablet by mouth at bedtime ibuprofen 800 MG tablet Take 800 mg by mouth in the morning and 800 mg in the evening and 800 mg before bedtime. 02/03/2024 Active levothyroxine sodium 0.088 mg oral tablet (18 sources) l-Thyroxine Start: 10-08-2023 End: 06-17-2024 take 1 tablet by mouth before mealtime levothyroxine (Synthroid, Levoxyl) 88 MCG tablet Indications: Hypothyroidism, unspecified type (CMS/HCC) Take 1 tablet (88 mcg) by mouth in the morning. Take before meals. 90 tablet 1 03/19/2024 Active Start: 03-24-2017 levothyroxine 137 microgram, Oral, Daily, Refills(s) 0, Thyroid Start Date: 03/24/17 Status: Ordered 3 ml liraglutide 6 mg/ml pen injector (1 source) GLP-1 Receptor Agonist Start: 03-24-2017 inject 18 mg by subcutaneous injection once daily Victoza 6 mg/mL subcutaneous injection 18 mg, SubCutaneous, Daily, Refills(s) 0, Blood glucose Start Date: 03/24/17 Status: Ordered lisinopril 10 mg oral tablet (10 sources) Angiotensin Converting Enzyme Inhibitor Start: 06-21-2024 take 1 tablet by mouth once daily lisinopril 10 MG tablet Take 10 mg by mouth Daily 06/21/2024 Active Start: 11-10-2023 End: 02-08-2024 take 1 tablet by mouth in the morning lisinopril 10 MG tablet Indications: Essential (primary) hypertension (CMS/HCC) Take 1 tablet (10 mg) by mouth in the morning. 90 tablet 1 11/10/2023 Active Start: 03-24-2017 take 20 mg by mouth once daily lisinopril 20 mg, Oral, Daily, Refills(s) 0, High blood pressure Start Date: 03/24/17 Status: Ordered loratadine 10 mg oral tablet (1 source) Start: 03-24-2017 take 10 mg by mouth once daily loratadine 10 mg, Oral, Daily, Refills(s) 0, Allergy symptoms Start Date: 03/24/17 Status: Ordered LORazepam 0.5 mg oral tablet (16 sources) Benzodiazepine Start: 10-07-2023 End: 01-28-2024 LORazepam (Ativan) 0.5 MG tablet Indications: Anxiety in acute stress reaction (CMS/HCC) , Dental disease 1 dose the night before the scheduled dental procedure, then may repeat a dose in the morning about 2 hours prior to procedure. Must have a trackless trolley driver for this 2 tablet 01/28/2024 Active magnesium oxide 400 mg oral tablet (3 sources) Start: 10-07-2023 End: 01-07-2024 take 1 tablet by mouth once daily magnesium oxide (Mag-Ox) 400 mg tablet Indications: Hypomagnesemia Take 1 tablet (400 mg) by mouth Daily 90 tablet 1 10/07/2023 01/07/2024 Active 24 hr metFORMIN hydrochloride 750 mg extended release oral tablet (15 sources) Biguanide Start: 11-10-2023 End: 08-17-2024 take 1 tablet by mouth every twenty-four hours in the morning metFORMIN XR (Glucophage-XR) 750 MG 24 hr tablet Indications: Type 2 diabetes mellitus without complications (CMS/HCC) Take 1 tablet (750 mg) by mouth in the morning and 1 tablet (750 mg) in the evening. Take before meals. 180 tablet 1 05/19/2024 08/17/2024 Active Start: 03-24-2017 take 500 mg by [...] omeprazole 20 mg delayed release oral capsule (14 sources) Proton Pump Inhibitor Start: 10-07-2023 End: 01-05-2024 take 1 capsule by mouth before mealtime [...] Status: Ordered pioglitazone 15 mg oral tablet (14 sources) Peroxisome Proliferator Receptor alpha Agonist, Peroxisome Proliferator Receptor gamma Agonist, Thiazolidinedione Start: 04-18-2024 End: 07-17-2024 take 1 tablet by mouth once daily pioglitazone (Actos) 15 MG tablet Indications: Type 2 diabetes mellitus without complications (CMS/HCC) Take 1 tablet (15 mg) by mouth Daily 90 tablet 1 04/18/2024 07/17/2024 Active Start: 10-07-2023 End: 01-05-2024 take 1 tablet by mouth once daily pioglitazone (Actos) 15 MG tablet Indications: Type 2 diabetes mellitus without complications (CMS/HCC) Take 1 tablet (15 mg) by mouth Daily 90 tablet 1 10/07/2023 Active Semaglutide,0.25 or 0.5MG/DO S, (Ozempic, 0.25 or 0.5 MG/DOSE,) 2 MG/3ML solution pen-injector (15 sources) Start: 04-11-2024 End: 07-04-2024 Semaglutide,0.25 or 0.5MG/DO S, (Ozempic, 0.25 or 0.5 MG/DOSE,) 2 MG/3ML solution pen-injector Indications: Type 2 diabetes mellitus without complications (CMS/HCC) Inject 0.5 mg as directed 1 (one) time per week 9 mL 1 04/11/2024 07/04/2024 Active Start: 10-07-2023 Semaglutide,0. 25 or 0.5MG/DOS, (Ozempic, 0.25 or 0.5 MG/DOSE,) 2 MG/3ML solution pen-injector Indications: Type 2 diabetes mellitus without complications (CMS/HCC) Inject 0.5 mg as directed 1 (one) time per week 9 mL 1 10/07/2023 Active Start: 10-07-2023 End: 01-05-2024 Semaglutide,0.25 or 0.5MG/DO S, (Ozempic, 0.25 or 0.5 MG/DOSE,) 2 MG/3ML solution pen-injector Indications: Type 2 diabetes mellitus without complications (CMS/HCC) Inject 0.5 mg as directed 1 (one) time per week 9 mL 1 10/07/2023 01/05/2024 Active Vitamin D (1 source) Start: 03-24-2017 Vitamin D 5,00 0IU, Oral, Daily, Refills(s) 0, Prophylaxis Start Date: 03/24/17 Status: Ordered Problems Active Problems Problem Classification Problem Date Documented Date Episodic/Chronic Allergic reactions (17 sources) Environmental allergy; Translations: [Other allergy status, other than to drugs and biological substances] Onset: 04-02-2023 04-02-2023 Episodic Anxiety disorders (20 sources) Anxiety; Translations: [Generalized anxiety disorder] Onset: 11-19-2022 01-28-2024 Chronic Diabetes mellitus without complication (20 sources) Type 2 diabetes mellitus without complications; Translations: [Type 2 diabetes mellitus] Onset: 01-01-2018 Chronic Disorders of lipid metabolism (20 sources) Hyperlipidemia, unspecified; Translations: [Dyslipidemia] Onset: 01-01-2018 Chronic Diverticulosis and diverticulitis (15 sources) Diverticular disease; Translations: [Diverticulosis of intestine, part unspecified, without perforation or abscess without bleeding] Onset: 11-19-2022 11-19-2022 Chronic Esophageal disorders (15 sources) Gastroesophageal reflux disease; Translations: [Gastro-esophageal reflux disease without esophagitis] Onset: 04-02-2023 04-02-2023 Chronic Essential hypertension (17 sources) Hypertensive disorder; Translations: [Essential (primary) hypertension] Onset: 01-01-2018 04-02-2023 Chronic Mood disorders (18 sources) Recurrent major depressive episodes, mild ; Translations: [Major depressive disorder, recurrent, mild] Onset: 05-04-2023 05-04-2023 Chronic Nutritional deficiencies (18 sources) Vitamin D deficiency, unspecified; Translations: [Vitamin D deficiency] Onset: 04-02-2023 04-02-2023 Chronic Osteoarthritis (15 sources) Osteoarthritis of joint of right elbow; Translations: [Primary osteoarthritis, right elbow] Onset: 10-07-2023 10-07-2023 Chronic Osteoporosis (15 sources) Osteoporosis; Translations: [Age-related osteoporosis without current pathological fracture] Onset: 04-02-2023 07-07-2023 Chronic Other bone disease and musculoskeletal deformities (1 source) Other specified disorders of bone density and structure, unspecified site; Translations: [OTH D/O BONE DEN STRUCT UNS SITE] Onset: 07-18-2022 Episodic Other ear and sense organ disorders (15 sources) Hearing loss; Translations: [Unspecified hearing loss, unspecified ear] Onset: 11-19-2022 04-02-2023 Chronic Other ear and sense organ disorders (15 sources) Sensorineural hearing loss, bilateral; Translations: [Sensorineural hearing loss, bilateral] Onset: 11-25-2022 11-25-2022 Chronic Other endocrine disorders (1 source) Hyperparathyroidism, unspecified; Translations: [Hyperparathyroidism, unspecified] Onset: 06-05-2023 Chronic Other endocrine disorders (20 sources) Hyperparathyroidism; Translations: [Hyperparathyroidism, unspecified] Onset: 11-19-2022 11-19-2022 Chronic Other nutritional; endocrine; and metabolic disorders (2 sources) Hypercalcemia; Translations: [Hypercalcemia] Onset: 06-05-2023 Chronic Other nutritional; endocrine; and metabolic disorders (1 source) Hypomagnesemia; Translations: [Hypomagnesemia] Onset: 06-05-2023 Chronic Other nutritional; endocrine; and metabolic disorders (17 sources) Body mass index 30+ - obesity; Translations: [Obesity, unspecified] Onset: 04-02-2023 04-02-2023 Chronic Other nutritional; endocrine; and metabolic disorders (17 sources) Hypomagnesemia; Translations: [Hypomagnesemia] Onset: 10-07-2023 10-07-2023 Chronic Residual codes; unclassified (1 source) Family history of malignant neoplasm of other organs or systems; Translations: [FAM HX MALIG NEOPLASM OTH ORGN/SYS] Onset: 07-12-2022 Episodic Spondylosis; intervertebral disc disorders; other back problems (15 sources) Arthropathy of lumbar facet joint; Translations: [Spondylosis without myelopathy or radiculopathy, lumbar region] Onset: 04-02-2023 04-02-2023 Chronic Thyroid disorders (20 sources) Hypothyroidism, unspecified; Translations: [Hypothyroidism] Onset: 10-02-2021 Chronic Urinary tract infections (4 sources) Urinary tract infection, site not specified; Translations: [UTI SITE NOT SPECIFIED] Onset: 08-12-2022 Episodic Past or Other Problems Problem Classification Problem Date Documented Da te Episodic/Chronic Deficiency and other anemia (15 sources) Anemia; Translations: [Anemia, unspecified] Onset: 04-02-2023 04-02-2023 Episodic Disorders of teeth and jaw (16 sources) Tooth disorder; Translations: [Disorder of teeth and supporting structures, unspecified] Onset: 04-02-2023 01-28-2024 Episodic Hemorrhoids (15 sources) Hemorrhoids; Translations: [Unspecified hemorrhoids] Onset: 11-19-2022 Resolved: 11-19-2022 11-19-2022 Episodic Mood disorders (13 sources) Mood disorders Onset: 01-07-2024 01-07-2024 Mycoses (15 sources) Candidiasis; Translations: [Candidiasis, unspecified] Onset: 04-02-2023 04-02-2023 Episodic Nausea and vomiting (15 sources) Nausea and vomiting; Translations: [Nausea with vomiting, unspecified] Onset: 04-02-2023 Resolved: 07-07-2023 07-07-2023 Episodic Other and unspecified benign neoplasm (16 sources) History of polyp of colon; Translations: [History of colon polyps] Onset: 11-19-2022 Resolved: 11-19-2022 08-02-2022 Episodic Other and unspecified benign neoplasm (15 sources) Polyp of colon; Translations: [Polyp of colon] Onset: 11-19-2022 11-19-2022 Episodic Other bone disease and musculoskeletal deformities (17 sources) Osteopenia; Translations: [Other specified disorders of bone density and structure, unspecified site] Onset: 04-02-2023 Resolved: 07-07-2023 07-07-2023 Episodic Other connective tissue disease (15 sources) Lateral epicondylitis of right humerus; Translations: [Lateral epicondylitis, right elbow] Onset: 07-22-2023 07-22-2023 Episodic Other connective tissue disease (15 sources) Pain of right thigh; Translations: [Pain in right thigh] Onset: 04-02-2023 Resolved: 07-07-2023 07-07-2023 Episodic Other ear and sense organ disorders (15 sources) Tinnitus of right ear; Translations: [Tinnitus, right ear] Onset: 11-25-2022 11-25-2022 Episodic Other ear and sense organ disorders (15 sources) Ear problem; Translations: [Unspecified disorder of ear, unspecified ear] Onset: 04-02-2023 04-02-2023 Episodic Other gastrointestinal disorders (15 sources) Heartburn; Translations: [Heartburn] Onset: 04-10-2018 Resolved: 11-19-2022 11-19-2022 Episodic Other hematologic conditions (15 sources) History of anemia; Translations: [Personal history of diseases of the blood and blood-forming organs and certain disorders involving the immune mechanism] Onset: 04-02-2023 04-02-2023 Episodic Other hereditary and degenerative nervous system conditions (15 sources) Restless legs; Translations: [Restless legs syndrome] Onset: 11-19-2022 Resolved: 07-07-2023 07-07-2023 Chronic Other inflammatory condition of skin (15 sources) Seborrheic dermatitis; Translations: [Seborrheic dermatitis, unspecified] Onset: 04-02-2023 04-02-2023 Episodic Other nervous system disorders (15 sources) Magnetic resonance imaging of brain abnormal; Translations: [White matter disease, unspecified] Onset: 12-25-2022 04-02-2023 Episodic Other nutritional; endocrine; and metabolic disorders (17 sources) Hypercalcemia; Translations: [Hypercalcemia] Onset: 11-19-2022 Resolved: 11-19-2022 11-19-2022 Chronic Other screening for suspected conditions (not mental disorders or infectious disease) (19 sources) Encounter for screening mammogram for malignant neoplasm of breast; Translations: [Patient encounter status] Onset: 07-04-2022 Episodic Residual codes; unclassified (15 sources) Family history of polyp of colon; Translations: [Family history of colonic polyps] Onset: 11-19-2022 Resolved: 11-19-2022 11-19-2022 Episodic Sprains and strains (15 sources) Strain of left trapezius muscle; Translations: [Strain of other muscles, fascia and tendons at shoulder and upper arm level, left arm, subsequent encounter] Onset: 04-02-2023 Resolved: 07-07-2023 07-07-2023 Episodic Unclassified (13 sources) Onset: 01-07-2024 01-07-2024 Viral infection (15 sources) Herpes zoster; Translations: [Zoster without complications] Onset: 04-02-2023 04-02-2023 Episodic Results Test Name Value Interpretation Reference Range Facility Magnesiumon 03-22-2024 Magnesium [Mass/Vol] 1.8 mg/dL Low 1.9-2.7 [facility] Comment on above: Performed By: #### P TH, RENAL, [id number], MG #### [address] [address] [facility] Parathyroid Hormone Intacton 03-22-2024 Parathyroid Hormone Intact 67.5 pg/mL Normal [facility] Comment on above: Result Comment: PERF ORMED BY: [place] [address] PATHOLOGIST NETWORK APPLICATIONS SPECIALIST KIRSTIN GUZMAN M.D. Performed By: #### P TH, RENAL, [id number], MG #### [address] Renal Function Panelon 03-22 Albumin [Mass/Vol] 4.0 g/dL Normal 3.5-5.7 [facility] Comment on above: Performed By: #### P TH, RENAL, [id number], MG #### [address] Anion gap [Moles/Vol] 12.1 mmol/L Normal 6.0-15.0 [facility] Comment on above: Performed By: #### P TH, RENAL, [id number], MG #### [address] Calcium [Mass/Vol] 10.3 mg/dL Normal 8.6-10.3 [facility] Comment on above: Performed By: #### P TH, RENAL, [id number], MG #### [address] Chloride [Moles/Vol] 101 mmol/L Normal 98-107 [facility] Comment on above: Performed By: #### P TH, RENAL, [id number], MG #### [address] CO2 [Moles/Vol] 30.6 mmol/L Normal 21.0-31.0 [facility] Comment on above: Performed By: #### P TH, RENAL, [id number], MG #### [place] [address] [place] Creatinine [Mass/Vol] 0.76 mg/dL Normal 0.60-1.20 [facility] Comment on above: Performed By: #### P TH, RENAL, [id number], MG #### [place] [address] [place] GFR/1.73 sq M.predicted MDRD (S/P/Bld) [Vol rate/Area] mL/min/{1.73_m2} Normal [facility] Comment on above: Performed By: #### P TH, RENAL, [id number], MG #### [facility] [address] Glucose [Mass/Vol] 108 mg/dL High 70-100 [facility] Comment on above: Result Comment: [place] Glucose Reference Range is dependent on time and content of last meal. Glucose of more than 200 mg/dL in a nonstressed, ambulatory subject supports the diagnosis of Diabetes Mellitus. ADA recommended reference range Performed By: #### P TH, RENAL, [id number], MG #### [facility] [address] Phosphate [Mass/Vol] 3.7 mg/dL Normal 2.5-4.5 [facility] Comment on above: Performed By: #### P TH, RENAL, [id number], MG #### [facility] [address] Potassium [Moles/Vol] 4.7 mmol/L Normal 3.5-5.1 [facility] Comment on above: Performed By: #### P TH, RENAL, [id number], MG #### [facility] [address] Sodium [Moles/Vol] 139 mmol/L Normal 136-145 [facility] Comment on above: Performed By: #### P TH, RENAL, [id number], MG #### [address] Urea nitrogen [Mass/Vol] 13 mg/dL Normal 7-25 [facility] Comment on above: Performed By: #### P TH, RENAL, [id number], MG #### [facility] [address] [place] [id number] [place] Vitamin D 25 Hydroxy Totalon 03-22-2024 Vitamin D 25 Hydroxy Total 34.5 ng/mL Normal 30-100 [facility] Comment on above: Result Comment: JUAN PABLO MIN D STATUS 25(OH)VITAMIN D RANGE (ng/mL) Deficient <20 Insufficient 20 to <30 Sufficient 30 to 100 Reference: Verito MF,Magali NC, Yumiko SCHWARZ, et al. Evaluation,treatment, and prevention of vitamin D deficiency; an Endocrine Society clinical practice guideline. JCEM. 2011 Oct; 96(7):1911-30. PERFORMED BY: [place] [address] PATHOLOGIST NETWORK APPLICATIONS SPECIALIST KIRSTIN GUZMAN M.D. Performed By: #### P TH, RENAL, [id number], MG #### [facility] [address] MLR HEMOGLOBIN A1Con 15-2 024 Glucose [Mass/Vol] 123 mg/dL [facility] HbA1c (Bld) [Mass fraction] 5.9 % 4.5 - 6.2 % [facility] Comment on above: ADA RECOMMENDED LIMI T 4.0 - 6.0 ADA THERAPEUTIC TARGET < 7.0 ACTION SUGGESTED > 7.[address] [facility] Albumin [Mass/volume] in Ser um or Plasma by Bromocresol green (BCG) dye binding methoOrdered By: Jean Quick on 09-25-2023 Albumin BCG dye [Mass/Vol] 4.2 g/dL 3.5-5.7 [facility] Calcium [Mass/volume] in Ser um or PlasmaOrdered By: Jean Quick on 09-25-2023 Calcium [Mass/Vol] 10.3 mg/dL Normal 8.6-10.3 [facility] Comment on above: Performed By: #### V [id number], MG, PTH, RENAL #### [address] Carbon dioxide, total [Moles /volume] in Serum or PlasmaOrdered By: Jean Quick on 09-25-2023 CO2 [Moles/Vol] 29.4 mmol/L Normal 21.0-31.0 [facility] Comment on above: Performed By: #### V [id number], MG, PTH, RENAL #### [address] Chloride [Moles/volume] in S rosalind or PlasmaOrdered By: Jean Quick on 09-25-2023 Chloride [Moles/Vol] 103 mmol/L Normal 98-107 [facility] Comment on above: Performed By: #### V [id number], MG, PTH, RENAL #### [facility] [address] Creatinine [Mass/volume] in Serum or PlasmaOrdered By: Jean Quick on 09-25-2023 Creatinine [Mass/Vol] 0.75 mg/dL Normal 0.60-1.[address] [facility] Comment on above: Performed By: #### V [id number], MG, PTH, RENAL #### [facility] [address] Glucose [Mass/volume] in Ser um or PlasmaOrdered By: Jean Quick on 09-25-2023 Glucose [Mass/Vol] 108 mg/dL High 70-100 [facility] Comment on above: ADA recommended refe rence rangeRandom Glucose Reference Range is dependent on time and content of last meal. Glucose of more than 200 mg/dL in a nonstressed, ambulatory subject supports the diagnosis of Diabetes Mellitus. Result Comment: [place] om Glucose Reference Range is dependent on time and content of last meal. Glucose of more than 200 mg/dL in a nonstressed, ambulatory subject supports the diagnosis of Diabetes Mellitus. ADA recommended reference range Performed By: #### V [id number], MG, PTH, RENAL #### [facility] [address] Magnesium [Mass/volume] in S rosalind or PlasmaOrdered By: Jean Quick on 09-25-2023 Magnesium [Mass/Vol] 1.8 mg/dL Low 1.9-2.7 [facility] Comment on above: Performed By: #### V [id number], MG, PTH, RENAL #### [facility] [address] No Panel InformationOrdered By: Jean Quick on 09-25-2023 Estimated GFR (CKD-EPI) > 60.0 mL/Min [facility] Creatinine Clearance (Chem N/A [facility] Parathyrin.intact [Mass/volu me] in Serum or PlasmaOrdered By: Jean Quick on 09-25-2023 Parathyrin.intact [Mass/Vol] 74.4 pg/mL [facility] Parathyroid Hormone Intacton 09-25-2023 Parathyroid Hormone Intact 74.4 pg/mL Normal [facility] Comment on above: Result Comment: PERF ORMED BY: [place] [address] PATHOLOGIST NETWORK APPLICATIONS SPECIALIST EZEQUIEL FIGUEREDO M.D. Performed By: #### V [id number], MG, PTH, RENAL #### [address] Phosphate [Mass/volume] in S rosalind or PlasmaOrdered By: Jean Quick on 09-25-2023 Phosphate [Mass/Vol] 3.3 mg/dL Normal 2.5-4.5 [facility] Comment on above: Performed By: #### V [id number], MG, PTH, RENAL #### [address] Potassium [Moles/volume] in Serum or PlasmaOrdered By: Jean Quick on 09-25-2023 Potassium [Moles/Vol] 4.3 mmol/L Normal 3.5-5.[address] [facility] Comment on above: Performed By: #### V [id number], MG, PTH, RENAL #### [address] Renal Function Panelon 09-24 Albumin [Mass/Vol] 4.2 g/dL Normal 3.5-5.7 [facility] Comment on above: Performed By: #### V [id number], MG, PTH, RENAL #### [place] [address] [place] GFR/1.73 sq M.predicted MDRD (S/P/Bld) [Vol rate/Area] mL/min/{1.73_m2} Normal [facility] Comment on above: Performed By: #### V [id number], MG, PTH, RENAL #### [address] Serum or plasma anion gap de terminationOrdered By: Jean Quick on 09-25-2023 Anion gap [Moles/Vol] 11.9 mmol/L Normal 6.0-15.0 [facility] Comment on above: Performed By: #### V [id number], MG, PTH, RENAL #### [facility] [address] [place] [id number] [facility] Sodium [Moles/volume] in Ser um or PlasmaOrdered By: Jean Quick on 09-25-2023 Sodium [Moles/Vol] 140 mmol/L Normal 136-145 [facility] Comment on above: Performed By: #### V [id number], MG, PTH, RENAL #### [facility] [address] [place] [address] [place] Urea nitrogen [Mass/volume] in Serum or PlasmaOrdered By: Jean Quick on 09-25-2023 Urea nitrogen [Mass/Vol] 11 mg/dL Normal 7-25 [facility] Comment on above: Performed By: #### V [id number], MG, PTH, RENAL #### [place] [id number] [facility] Vitamin D 25 Hydroxy Totalon 09-25-2023 Vitamin D 25 Hydroxy Total 36.4 ng/mL Normal 30-100 [facility] Comment on above: Result Comment: JUAN PABLO MIN D STATUS 25([place])VITAMIN D RANGE (ng/mL) Deficient <20 Insufficient 20 to <30 Sufficient 30 to 100 Reference: Verito MF,Magali NC, Yumiko SCHWARZ, et al. Evaluation,treatment, and prevention of vitamin D deficiency; an Endocrine Society clinical practice guideline. JCEM. 2010; 96(7):1911-30. PERFORMED BY: [place] [address] PATHOLOGIST NETWORK APPLICATIONS SPECIALIST EZEQUIEL FIGUEREDO M.D. Performed By: #### V [id number], MG, PTH, RENAL #### [place] [id number] [place] Vitamin D+Metabolites [Mass/ volume] in Serum or PlasmaOrdered By: Jean Quick on 06-06-2024 Vitamin D+Metabolites [Mass/Vol] 36.4 ng/mL 30-100 [facility] Comment on above: VITAMIN D STATUS 25( [place])VITAMIN D RANGE (ng/mL) Deficient <20 Insufficient 20 to <30Sufficient 30 to 100Reference: Verito MCGHEE,Magali GRIJALVA, Yumiko SCHWARZ, et al. Evaluation,treatment, and prevention of vitamin D deficiency; an Endocrine Society clinical practice guideline. JCEM. 2010; 96(7):1911-30. CALCIUMon 06-05-2023 Calcium [Mass/Vol] 10.3 mg/dL Normal 8.5-10.[address] [facility] Comment on above: Performed By: #### 1 7861-6, 49447-9, 1-8, 45823-7 #### [facility] ([id number]) [address], [address] [place] [address] MAGNESIUMon 06-05-2023 Magnesium [Mass/Vol] 1.7 mg/dL Low 1.8-2.[address] [facility] Comment on above: Performed By: #### 1 7861-6, 55828-8, 2731-8, 05608-5 #### [facility] ([id number]) [address], [address] [place] [address] Parathyrin.intact [Mass/Vol] on 06-05-2023 PTH INTACT 71 pg/mL Normal 12-88 [facility] Comment on above: Performed By: #### 1 7861-6, 79400-7, 2730-8, 24970-8 #### [facility] ([id number]) [address], [address] [place] [address] RENAL PANELon 06-05-2023 Albumin [Mass/Vol] 4.3 g/dL Normal 3.2-5.[address] [facility] Comment on above: Performed By: #### R ENAL #### [facility] ([id number]) [address], [address] [place] [address] Anion gap [Moles/Vol] 8 mmol/L Normal 5-15 [facility] Comment on above: Performed By: #### R ENAL #### [facility] ([id number]) [address], [address] [place] [address] Calcium [Mass/Vol] 10.6 mg/dL High 8.5-10.[address] [facility] Comment on above: Performed By: #### R ENAL #### [facility] ([id number]) [address], [address] [place] [address] Chloride [Moles/Vol] 98 mmol/L Normal 98-[address] [facility] Comment on above: Performed By: #### R ENAL #### [facility] ([id number]) [address] [place] [address] CO2 [Moles/Vol] 31 mmol/L Normal 22-32 [facility] Comment on above: Performed By: #### R ENAL #### [facility] ([id number]) [address] [place] [address] Creatinine [Mass/Vol] 0.82 mg/dL Normal 0.40-1.00 [facility] Comment on above: Result Comment: METH OD TRACEABLE TO IDMS STANDARD Performed By: #### R ENAL #### [facility] ([id number]) [address], [address] [place] [address] GFR/1.73 sq M.predicted among non-blacks MDRD (S/P/Bld) [Vol rate/Area] 77 mL/min/{1.73_m2} Normal >59 [facility] Comment on above: Result Comment: Reported eGFR is based on the CKD-EPI 2020 equation that does not use a race coefficient. Performed By: #### R ENAL #### [facility] ([id number]) [address] [place] [address] Glucose [Mass/Vol] 156 mg/dL High 65-[address] [facility] Comment on above: Performed By: #### R ENAL #### [facility] ([id number]) [address] [place] [address] Phosphate [Mass/Vol] 3.2 mg/dL Normal 2.4-4.[address] [facility] Comment on above: Performed By: #### R ENAL #### [facility] ([id number]) [address] [place] [address] Potassium [Moles/Vol] 4.2 mmol/L Normal 3.5-5.0 [facility] Comment on above: Performed By: #### R ENAL #### [facility] ([id number]) [address] [place] [address] Sodium [Moles/Vol] 137 mmol/L Normal 134-[address] [facility] Comment on above: Performed By: #### R ENAL #### [facility] ([id number]) [address] [place] [address] Urea nitrogen [Mass/Vol] 11 mg/dL Normal 5-27 [facility] Comment on above: Performed By: #### R ENAL #### [facility] ([id number]) [address] [place] [address] Vitamin D+Metabolites [Mass/ Vol]on 06-05-2023 VITAMIN D 25 HYD TOT 36.7 ng/mL Normal 30-[address] [facility] Comment on above: Result Comment: Vitamin D status 25 [place] Vitamin D Deficiency <20 ng/mL Insufficiency 20-29 ng/mL Sufficiency 30-100 ng/mL Toxicity >100 ng/mL NOTE: A pediatric reference range has not been established by the seasonal recruiter of this kit. The [place] [employer] recommends a Vitamin D level of = or >20ng/mL in infants and children. Performed By: #### 1 7861-6, 69996-2, 2731-8, 24088-5 #### [facility] ([id number]) [address] [place] [address] Albumin [Mass/volume] in Ser um or Plasma by Bromocresol green (BCG) dye binding methoOrdered By: Jean Quick on 03-26-2023 Albumin BCG dye [Mass/Vol] 4.3 g/dL 3.5-5.7 [facility] Calcium [Mass/volume] in Ser um or PlasmaOrdered By: Jean Quick on 03-26-2023 Calcium [Mass/Vol] 10.5 mg/dL 8.6-10.3 [facility] Carbon dioxide, total [Moles /volume] in Serum or PlasmaOrdered By: Jean Quick on 03-26-2023 CO2 [Moles/Vol] 29.4 mmol/L 21.0-31.0 [facility] Chloride [Moles/volume] in S rosalind or PlasmaOrdered By: Jean Quick on 03-26-2023 Chloride [Moles/Vol] 104 mmol/L 98-107 [facility] Creatinine [Mass/volume] in Serum or PlasmaOrdered By: Jean Quick on 03-26-2023 Creatinine [Mass/Vol] 0.79 mg/dL 0.60-1.[address] [facility] Glucose [Mass/volume] in Ser um or PlasmaOrdered By: Jean Quick on 03-26-2023 Glucose [Mass/Vol] 136 mg/dL 70-100 [facility] Comment on above: ADA recommended refe rence rangeRandom Glucose Reference Range is dependent on time and content of last meal. Glucose of more than 200 mg/dL in a nonstressed, ambulatory subject supports the diagnosis of Diabetes Mellitus. Magnesium [Mass/volume] in S rosalind or PlasmaOrdered By: Jean Quick on 03-26-2023 Magnesium [Mass/Vol] 1.6 mg/dL 1.9-2.7 [facility] No Panel InformationOrdered By: Jean Quick on 03-26-2023 Estimated GFR (CKD-EPI) > 60.0 mL/Min [facility] Creatinine Clearance (Chem N/A [facility] Parathyrin.intact [Mass/volu me] in Serum or PlasmaOrdered By: Jean Quick on 03-26-2023 Parathyrin.intact [Mass/Vol] 105.1 pg/mL 12 [facility] Phosphate [Mass/volume] in S rosalind or PlasmaOrdered By: Jean Quick on 03-26-2023 Phosphate [Mass/Vol] 3.1 mg/dL 2.5-4.5 [facility] Potassium [Moles/volume] in Serum or PlasmaOrdered By: Jean Quick on 03-26-2023 Potassium [Moles/Vol] 4.8 mmol/L 3.5-5.[address] [facility] Serum or plasma anion gap de terminationOrdered By: Jean Quick on 03-26-2023 Anion gap [Moles/Vol] 11.4 mmol/L 6.0-15.0 [facility] Sodium [Moles/volume] in Ser um or PlasmaOrdered By: Jean Quick on 03-26-2023 Sodium [Moles/Vol] 140 mmol/L 136-145 [facility] Urea nitrogen [Mass/volume] in Serum or PlasmaOrdered By: Jean Quick on 03-26-2023 Urea nitrogen [Mass/Vol] 8 mg/dL 7-25 [facility] Vitamin D+Metabolites [Mass/ volume] in Serum or PlasmaOrdered By: Jean Quick on 03-26-2023 Vitamin D+Metabolites [Mass/Vol] 38.1 ng/mL 30-100 [facility] Comment on above: VITAMIN D STATUS 25( [place])VITAMIN D RANGE (ng/mL) Deficient <20 Insufficient 20 to <30Sufficient 30 to 100Reference: Verito MCGHEE,Magali NC, Yumiko SCHWARZ, et al. Evaluation,treatment, and prevention of vitamin D deficiency; an Endocrine Society clinical practice guideline. JCEM. 2010; 96(7):1911-30. Reminderson 09-03-2022 Reminders --- From: [employer] [facility] To: JOVANA - Reminders/Recalls; Sent: 09/03/2022 18:05:18 EDT Show up: 07/28/2029 18:05:00 EDT Subject: Ambulatory Reminder Due Date/Time: 08/27/2029 18:05:00 EDT Reminder/Recall Repeat colonoscopy in 7 years(2029) due to tubular adenoma Normal [facility] XR DEXA BONE DENSITYon 09-02 XR [...] by: GEORGINA [place] Date: 2022-09-02 13:17 Normal [facility] Outside Colonoscopyon 2022 Outside Colonoscopy [id number]:127 Normal [facility] Physician Orderon 08-27-2022 Physician Order [id number]:127 Normal [facility] CULTURE URINEon 08-12-2022 CULTURE URINE Culture Observations: NO GROWTH. Normal [facility] Comment on above: Performed By: #### T , FT3 #### [facility] [address] [place] [address] Dr. Herve Machado UA RANDOM W/MICROSCOPICon BACTERIA NONE SEEN Normal NONE SEEN [facility] Comment on above: Performed By: #### T SH, FT3 #### [facility] [address] [place] [address] Dr. Herve Machado Bilirubin Ql (U) Negative Normal NEGATIVE [facility] Comment on above: Performed By: #### T SH, FT3 #### [facility] [address] [place] [address] Dr. Herve Machado CAST NONE SEEN Normal NONE SEEN [facility] Comment on above: Performed By: #### T SH, FT3 #### [facility] [address] [place] [address] Dr. Herve Machado Clarity (U) CLEAR Normal CLEAR [facility] Comment on above: Performed By: #### T SH, FT3 #### [facility] [address] [place] [address] Dr. Herve Machado Color (U) LT. YELLOW Normal YELLOW [facility] Comment on above: Performed By: #### T SH, FT3 #### [facility] [address] [place] [address] Dr. Herve Machado Crystals LM Nom (Urine sed) NONE SEEN Normal NONE SEEN [facility] Comment on above: Performed By: #### T SH, FT3 #### [facility] [address] [place] [address] Dr. Herve Machado Epithelial cells LM Ql (Urine sed) RARE Normal NONE SEEN /RARE [facility] Comment on above: Performed By: #### T , FT3 #### [facility] [address] [place] [address] Dr. Herve Machado Glucose Ql (U) 500 mg/dl Abnormal NEGATIVE [facility] Comment on above: Performed By: #### T SH, FT3 #### [facility] [address] [place] [address] Dr. Herve Machado Hemoglobin Ql (U) Negative Normal NEGATIVE [facility] Comment on above: Performed By: #### T SH, FT3 #### [facility] [address] [place] [address] Dr. Herve Machado Ketones Ql (U) Negative Normal NEGATIVE [facility] Comment on above: Performed By: #### T SH, FT3 #### [facility] [address] [place] [address] Dr. Herve Machado LEUKOCYTES Negative Normal NEGATIVE [facility] Comment on above: Performed By: #### T SH, FT3 #### [facility] [address] [place] [address] Dr. Herve Machado MUCOUS NONE SEEN Normal NONE SEEN [facility] Comment on above: Performed By: #### T SH, FT3 #### [facility] [address] [place] [address] Dr. Herve Machado Nitrite Ql (U) Negative Normal NEGATIVE [facility] Comment on above: Performed By: #### T , FT3 #### [facility] [address] [place] [address] Dr. Herve Machado pH (U) 5.0 [pH] Normal 5-9 [facility] Comment on above: Performed By: #### T , FT3 #### [facility] [address] [place] [address] Dr. Herve Machado RBC 0-2 Normal 0-2 [facility] Comment on above: Performed By: #### T , FT3 #### [facility] [address] [place] [address] Dr. Herve Machado SPEC GRAVITY 1.020 Normal 1.005-<=1.025 [facility] Comment on above: Performed By: #### T , FT3 #### [facility] [address] [place] [address] Dr. Herve Machado UA PROTEIN Negative Normal NEGATIVE/ TRACE [facility] Comment on above: Performed By: #### T , FT3 #### [facility] [address] [place] [address] Dr. Herve Machado Urobilinogen Qn (U) 0.2 {Connie'U}/dL Normal 0.2 - 1. 0 [facility] Comment on above: Performed By: #### T SH, FT3 #### [facility] [address] [address] [address] Herve Machado WBC NONE SEEN Normal NONE SEEN [facility] Comment on above: Performed By: #### T , FT3 #### [facility] [address] [address] [address] Herve Machado Consent for Procedure/Surger yon 08-05-2022 Consent for Procedure/Surgery [id number]:127 Normal [facility] Ambulatory Visit Summaryon 0 08-02-2022 Ambulatory [...] See instructions Prior to colonoscopy. Pickup at [facility] Unchanged alendronate (alendronate 35 mg oral tablet) [...] physician if questions or concerns Pharmacy Information [facility]: [address] [place], [place] [id number] [phone] Allergies penicillins (unknown) Problems Ongoing - Any [...] including vitamins, herbs, eye drops, creams, and mieg-vzu-hyhvuyt medicines. ? Any problems you or family [...] anything starting (more content not included)... Normal [facility] Gastroenterology Office/Clin ic Noteon 08-02-2022 Gastroenterology [...] in 2013 she had previous colonoscopy in [place], [place] that showed polyps- no record to [...] 1 EA, Refill(s) 0, Prior to colonoscopy., [facility], 139.7, cm, 08/02/22 [...] 08/02/2022 Immunizations Vaccine Date Status SARS-CoV-2 (COVID-19) mRNAMUL.[id number] 04/23/2022 Recorded SARSCoV2 mRNA(tozinamer-tri s-sucros) vac 07/30/2021 [...] including vitamins, herbs, eye drops, creams, and pqbg-jml-ctktadh medicines. ? Any problems you or family [...] air t (more content not included)... Normal [facility] Provider Letteron 07-16-2022 Provider Letter July 16, 2022 EMILY ADORNO [address] [place] [address]EMILY GALICIA 1955 Dear Emily, We have been trying to reach you with no success. It is important that you return our call regarding your referral sent by your primary care physician to see our office upon receiving this letter. Also, at the time of your call, please provide us with your current information. Thank you for your prompt attention to this matter. Sincerely, [facility]. Normal [facility] CBC AUTO DIFFon 07-15-2022 BASO # 0.0 103/ul Normal 0.0-0.1 [facility] Comment on above: Performed By: #### C BC #### [facility] [address] [address] [address] Herve Machado Basophils/100 WBC (Bld) 0.4 % Normal 0.2-2.0 [facility] Comment on above: Performed By: #### C BC #### [facility] [address] [address] [address] Herve Machado EO # 0.2 103/ul Normal 0.0-0.7 [facility] Comment on above: Performed By: #### C BC #### [facility] [address] [address] [address] Herve Machado Eosinophils/100 WBC (Bld) 2.7 % Normal 0.9-7.0 [facility] Comment on above: Performed By: #### C BC #### [facility] [address] [address] [address] Herve Machado Erythrocyte distribution width (RBC) [Ratio] 12.3 % Normal 11.0-15.0 [facility] Comment on above: Performed By: #### C BC #### [facility] [address] [address] [address] Herve Machado Hematocrit (Bld) [Volume fraction] 43.8 % Normal 36.0-48.0 [facility] Comment on above: Performed By: #### C BC #### [facility] [address] [place] [address] Dr. Herve Machado Hemoglobin (Bld) [Mass/Vol] 14.1 g/dL Normal 12.0-16.0 [facility] Comment on above: Performed By: #### C BC #### [facility] [address] [place] [address] Dr. Herve Machado IG # 0.01 10e3/ul Normal 0.00-0.03 [facility] Comment on above: Performed By: #### C BC #### [facility] [address] [place] [address] Dr. Herve Machado IG % 0.1 % Normal 0.0-0.5 [facility] Comment on above: Performed By: #### C BC #### [facility] [address] [place] [address] Dr. Herve Machado LYMPH # 1.7 103/ul Normal 1.2-3.8 [facility] Comment on above: Performed By: #### C BC #### [facility] [address] [place] [address] Dr. Herve Machado Lymphocytes/100 WBC (Bld) 23.6 % Normal 20.5-60.0 [facility] Comment on above: Performed By: #### C BC #### [facility] [address] [place] [address] Dr. Herve Machado MANUAL DIFF REQ NO Normal [facility] Comment on above: Performed By: #### C BC #### [facility] [address] [place] [address] Dr. Herve Machado MCH (RBC) [Entitic mass] 31.1 pg Normal 26.7-34.0 [facility] Comment on above: Performed By: #### C BC #### [facility] [address] [place] [place] [address] Dr. Herve Machado MCHC (RBC) [Mass/Vol] 32.2 g/dL Normal 29.9-35.2 [facility] Comment on above: Performed By: #### C BC #### [facility] [address] [place] [address] Dr. Herve Machado MCV (RBC) [Entitic vol] 96.5 fL Normal 81.0-99.0 [facility] Comment on above: Performed By: #### C BC #### [facility] [address] [place] [address] Dr. Herve Machado MONO # 0.4 103/ul Normal 0.3-0.8 [facility] Comment on above: Performed By: #### C BC #### [facility] [address] [place] [address] Dr. Herve Machado Monocytes/100 WBC (Bld) 5.8 % Normal 1.7-12.0 [facility] Comment on above: Performed By: #### C BC #### [facility] [address] [place] [address] Dr. Herve Machado NEUT # 4.9 103/ul Normal 1.4-6.5 [facility] Comment on above: Performed By: #### C BC #### [facility] [address] [place] [address] Dr. Herve Machado Neutrophils/100 WBC (Bld) 67.4 % Normal 43.0-75.0 [facility] [place] Comment on above: Performed By: #### C BC #### [facility] [address] [place] [address] Dr. Herve Machado Platelet mean volume (Bld) [Entitic vol] 9.9 fL Normal 9.5-13.5 [facility] Comment on above: Performed By: #### C BC #### [facility] [address] [place] [address] Dr. Herve Machado PLT 229 103/ul Normal 150-450 [facility] Comment on above: Performed By: #### C BC #### [facility] [address] [place] [address] Dr. Herve Machado RBC 4.54 106/ul Normal 4.20-5.40 [facility] [place] Comment on above: Performed By: #### C BC #### [facility] [address] [place] [address] Dr. Herve Machado WBC 7.3 103/ul Normal 4.0-11.0 [facility] Comment on above: Performed By: #### C BC #### [facility] [address] [place] [address] Dr. Herve Machado GLYCOHEMOGLOBIN A1Con 2022 ADA RECOMMENDATION SEE BELOW Normal [facility] Comment on above: Result Comment: ADA RECOMMENDED LIMIT 4.0 - 6.0 ADA THERAPEUTIC TARGET < 7.0 ACTION SUGGESTED > 7.0 Performed By: #### T SH, FT3 #### [facility] [address] [place] [address] Dr. Herve Machado Glucose [Mass/Vol] 160 mg/dL Normal [facility] Comment on above: Performed By: #### T SH, FT3 #### [facility] [address] [place] [address] Dr. Herve Machado HbA1c (Bld) [Mass fraction] 7.2 % Critically high 4.5-6.2 [facility] [place] Comment on above: Performed By: #### T SH, FT3 #### [facility] [address] [place] [address] Dr. Herve Machado LIPID PROFILEon 07-15-2022 CHOL-HDL RATIO NORM SEE BELOW Normal [facility] Comment on above: Result Comment: 3.3 - 4.4 LOW RISK 4.4 - 7.1 AVERAGE RISK 7.1 - 11.0 MODERATE RISK >11.0 HIGH RISK Performed By: #### T SH, FT3 #### [facility] [address] [place] [address] Dr. Herve Machado Cholesterol [Mass/Vol] 136 mg/dL Normal <=200 [facility] Comment on above: Performed By: #### T SH, FT3 #### [facility] [address] [place] [address] Dr. Herve Machado Cholesterol in HDL [Mass/Vol] 51 mg/dL Normal 40-60 [facility] Comment on above: Performed By: #### T SH, FT3 #### [facility] [address] [place] [address] Dr. Herve Machado Cholesterol in LDL [Mass/Vol] 68.6 mg/dL Normal [facility] Comment on above: Performed By: #### T SH, FT3 #### [facility] [address] [place] [address] Dr. Herve Machado Cholesterol.total/Choles terol in HDL [Mass ratio] 2.7 {ratio} Normal [facility] Comment on above: Performed By: #### T SH, FT3 #### [facility] [address] [place] [address] Dr. Herve Machado HDL NORMAL > or = 60 mg/dl - LOW CARDIOVASCULAR RISK <40 mg/dl - HIGH CARDIOVASCULAR RISK Normal [facility] Comment on above: Performed By: #### T SH, FT3 #### [facility] [address] [place] [address] Dr. Herve Machado LDL CALC NORMAL SEE BELOW Normal [facility] Comment on above: Result Comment: <100 mg/dl OPTIMAL 100 - 129 mg/dl NEAR OR ABOVE OPTIMAL 130 - 159 mg/dl BORDERLINE HIGH 160 - 189 mg/dl HIGH >190 mg/dl VERY HIGH Performed By: #### T SH, FT3 #### [facility] [address] [place] [address] Dr. Herve Machado Triglyceride [Mass/Vol] 82 mg/dL Normal <=150 [facility] Comment on above: Performed By: #### T SH, FT3 #### [facility] [address] [place] [address] Dr. Herve Machado VLDL CALC 16.4 mg/dL Normal [facility] Comment on above: Performed By: #### T SH, FT3 #### [facility] [address] [place] [address] Dr. Herve Machado MICROALBUMIN, RAND URon 06-20 mALB <1.3 Normal <=30.0 [facility] Comment on above: Performed By: #### T SH, FT3 #### [facility] [address] [place] [address] Dr. Herve Machado PROF 14(COMP METB)on 023 Albumin [Mass/Vol] 3.6 g/dL Normal 3.4-5.0 [facility] Comment on above: Performed By: #### T SH, FT3 #### [facility] [address] [place] [address] Dr. Herve Machado Albumin/Globulin [Mass ratio] 1.1 {ratio} Normal [facility] Comment on above: Performed By: #### T ASIA, FT3 #### [facility] [address] [place] [address] Dr. Herve Machado ALP [Catalytic activity/Vol] 64 U/L Normal 46-116 [facility] Comment on above: Performed By: #### T ASIA, FT3 #### [facility] [address] [place] [address] Dr. Herve Machado ALT [Catalytic activity/Vol] 21 U/L Normal 14-59 [facility] Comment on above: Performed By: #### T ASIA, FT3 #### [facility] [address] [place] [address] Dr. Herve Machado Anion gap [Moles/Vol] 11.2 mmol/L Normal [facility] Comment on above: Performed By: #### T ASIA, FT3 #### [facility] [address] [place] [address] Dr. Herve Machado AST [Catalytic activity/Vol] 18 U/L Normal 15-37 [facility] Comment on above: Performed By: #### T ASIA, FT3 #### [facility] [address] [place] [address] Dr. Herve Machado Bilirubin [Mass/Vol] 0.6 mg/dL Normal 0.2-1.0 [facility] Comment on above: Performed By: #### T ASIA, FT3 #### [facility] [address] [place] [address] Dr. Herve Machado Calcium [Mass/Vol] 10.2 mg/dL Critically high 8.5-10.1 [facility] Comment on above: Performed By: #### T ASIA, FT3 #### [facility] [address] [place] [address] Dr. Herve Machado Chloride [Moles/Vol] 107 mmol/L Normal 98-107 [facility] Comment on above: Performed By: #### T ASIA, FT3 #### [facility] [address] [place] [address] Dr. Herve Machado CO2 [Moles/Vol] 28.3 mmol/L Normal 21.0-32.0 [facility] Comment on above: Performed By: #### T SH, FT3 #### [facility] [address] [place] [address] Dr. Herve Machado Creatinine [Mass/Vol] 0.66 mg/dL Normal 0.55-1.02 [facility] Comment on above: Performed By: #### T ASIA, FT3 #### [facility] [address] [place] [address] Dr. Herve Machado EGFR-AF RWANDAN >60 Normal >=60 [facility] Comment on above: Performed By: #### T ASIA, FT3 #### [facility] [address] [place] [address] Dr. Herve Machado EGFR-NON AF RWANDAN >60 Normal >=60 [facility] Comment on above: Performed By: #### T ASIA, FT3 #### [facility] [address] [place] [address] Dr. Herve Machado Globulin (S) [Mass/Vol] 3.3 g/dL Normal [facility] Comment on above: Performed By: #### T ASIA, FT3 #### [facility] [address] [place] [address] Dr. Herve Machado Glucose [Mass/Vol] 154 mg/dL Critically high 74-106 [facility] Comment on above: Performed By: #### T ASIA, FT3 #### [facility] [address] [address] [address] Herve Machado Potassium [Moles/Vol] 4.5 mmol/L Normal 3.5-5.1 [facility] Comment on above: Performed By: #### T ASIA, FT3 #### [facility] [address] [address] [address] Herve Machado Protein [Mass/Vol] 6.9 g/dL Normal 6.4-8.2 [facility] Comment on above: Performed By: #### T ASIA, FT3 #### [facility] [address] [place] [address] Dr. Herve Machado Sodium [Moles/Vol] 142 mmol/L Normal 136-145 [facility] Comment on above: Performed By: #### T ASIA, FT3 #### [facility] [address] [place] [address] Dr. Herve Machado Urea nitrogen [Mass/Vol] 11.0 mg/dL Normal 7.0-18.0 [facility] [place] Comment on above: Performed By: #### T ASIA, FT3 #### [facility] [address] [place] [address] Dr. Herve Machado Urea nitrogen/Creatinine [Mass ratio] 16.7 mg/mg Normal [facility] Comment on above: Performed By: #### T ASIA, FT3 #### [facility] [address] [place] [address] Dr. Herve Machado UA RANDOM W/MICROSCOPICon BACTERIA MODERATE Abnormal NONE SEEN [facility] Comment on above: Performed By: #### U AMIC #### [facility] [address] [place] [address] Dr. Herve Machado Bilirubin Ql (U) Negative Normal NEGATIVE [facility] Comment on above: Performed By: #### U AMIC #### [facility] [address] [place] [address] Dr. Herve Machado CAST NONE SEEN Normal NONE SEEN [facility] Comment on above: Performed By: #### U AMIC #### [facility] [address] [place] [address] Dr. Herve Machado Clarity (U) CLEAR Normal CLEAR [facility] Comment on above: Performed By: #### U AMIC #### [facility] [address] [place] [address] Dr. Herve Machado Color (U) LT. YELLOW Normal YELLOW [facility] Comment on above: Performed By: #### U AMIC #### [facility] [address] [place] [address] Dr. Herve Machado Crystals LM Nom (Urine sed) NONE SEEN Normal NONE SEEN [facility] Comment on above: Performed By: #### U AMIC #### [facility] [address] [address] [address] Herve Machado Epithelial cells LM Ql (Urine sed) FEW Abnormal NONE SEEN /RARE [facility] Comment on above: Performed By: #### U AMIC #### [facility] [address] [address] [address] Herve Machado Glucose Ql (U) Negative Normal NEGATIVE [facility] Comment on above: Performed By: #### U AMIC #### [facility] [address] [address] [address] Herve Machado Hemoglobin Ql (U) Negative Normal NEGATIVE [facility] Comment on above: Performed By: #### U AMIC #### [facility] [address] [address] [address] Herve Machado Ketones Ql (U) Negative Normal NEGATIVE [facility] Comment on above: Performed By: #### U AMIC #### [facility] [address] [place] [address] Dr. Herve Machado LEUKOCYTES Negative Normal NEGATIVE [facility] Comment on above: Performed By: #### U AMIC #### [facility] [address] [address] [address] Herve Machado MUCOUS NONE SEEN Normal NONE SEEN [facility] Comment on above: Performed By: #### U AMIC #### [facility] [address] [place] [address] Dr. Herve Machado Nitrite Ql (U) Positive Abnormal NEGATIVE [facility] Comment on above: Performed By: #### U AMIC #### [facility] [address] [place] [address] Dr. Herve Machado pH (U) 6.0 [pH] Normal 5-9 [facility] Comment on above: Performed By: #### U AMIC #### [facility] [address] [place] [address] Dr. Herve Machado RBC 0-2 Normal 0-2 [facility] Comment on above: Performed By: #### U AMIC #### [facility] [address] [place] [address] Dr. Herve Machado SPEC GRAVITY 1.010 Normal 1.005-<=1.025 [facility] Comment on above: Performed By: #### U AMIC #### [facility] [address] [address] [address] Herve Machado UA PROTEIN Negative Normal NEGATIVE/ TRACE [facility] Comment on above: Performed By: #### U AMIC #### [facility] [id number] Herve Machado Urobilinogen Qn (U) 0.2 {Connie'U}/dL Normal 0.2 - 1. 0 [facility] Comment on above: Performed By: #### U AMIC #### [facility] [address] [address] [address] Herve Machado WBC 2-5 Abnormal NONE SEEN [facility] Comment on above: Performed By: #### U AMIC #### [facility] [address] [address] [address] Herve Machado Physician Referralon 023 Physician Referral [phone] [id number] Normal [facility] MG MAMM SCREEN 3D VEDA CADon 07-04-2022 MG MAMM SCREEN 3D VEDA CAD Patient: EMILY ADORNO Exam Date: 07/04/2022 : 1955 Gender:F Ordering : ARLEEN NIETO SANITARIAN Admission #: [id number] Family : Order #: [id number] CLICK HERE TO VIEW EXAM RADIOLOGY REPORT [...] pancreatic cancer at age 64. LOCATION: [facility] BREAST COMPOSITION: Scattered areas fibroglandular density. [...] Meade MD on 07/04/2022 at 10:24 Normal [facility] GLYCOHEMOGLOBIN A1Con 2021 ADA RECOMMENDATION SEE BELOW Normal [facility] Comment on above: Result Comment: ADA RECOMMENDED LIMIT 4.0 - 6.0 ADA THERAPEUTIC TARGET < 7.0 ACTION SUGGESTED > 7.0 Performed By: #### A 1C #### [facility] [address] [place] [address] Dr. Herve Machado Glucose [Mass/Vol] 189 mg/dL Normal [facility] Comment on above: Performed By: #### A 1C #### [facility] [address] [place] [address] Dr. Herve Machado HbA1c (Bld) [Mass fraction] 8.2 % Critically high 4.5-6.2 [facility] Comment on above: Performed By: #### A 1C #### [facility] [address] [place] [address] Dr. Herve Machado FREE T3on 02-28-2022 FREE T3 2.44 pg/mlL Normal 2.18-3.98 [facility] Comment on above: Performed By: #### T SH, FT3 #### [facility] [address] [place] [address] Dr. Herve Machado FREE T4on 02-28-2022 Free T4 [Mass/Vol] 1.48 ng/dL Critically high 0.76-1.46 [facility] Comment on above: Performed By: #### T SH, FT3 #### [facility] [address] [place] [address] Dr. Herve Machado TSHon 02-28-2022 TSH 1.115 uIU/mL Normal 0.358-3.740 [facility] Comment on above: Performed By: #### T SH, FT3 #### [facility] [address] [place] [address] Dr. Herve Machado FREE T3on 11-27-2021 FREE T3 2.54 pg/mlL Normal 2.18-3.98 [facility] Comment on above: Performed By: #### T SH, FT3 #### [facility] [address] [place] [address] Dr. Herve Machado FREE T4on 11-27-2021 Free T4 [Mass/Vol] 1.85 ng/dL Critically high 0.76-1.46 [facility] Comment on above: Performed By: #### T SH, FT3 #### [facility] [address] [place] [address] Dr. Herve Mahcado TSHon 11-27-2021 TSH 0.228 uIU/mL Critically low 0.358-3.740 [facility] Comment on above: Performed By: #### T SH, FT3 #### [facility] [address] [place] [address] Dr. Herve Machado FREE T3on 10-25-2021 FREE T3 2.50 pg/mlL Normal 2.18-3.98 [facility] Comment on above: Performed By: #### T SH, FT3 #### [facility] [address] [place] [address] Dr. Herve Machado FREE T4on 10-25-2021 Free T4 [Mass/Vol] 1.61 ng/dL Critically high 0.76-1.46 [facility] Comment on above: Performed By: #### T SH, FT3 #### [facility] [address] [place] [address] Dr. Herve Machado TSHon 10-25-2021 TSH 1.949 uIU/mL Normal 0.358-3.740 [facility] Comment on above: Performed By: #### T SH, FT3 #### [facility] [address] [place] [address] Dr. Herve Machado FREE T4on 09-28-2021 Free T4 [Mass/Vol] 1.50 ng/dL Critically high 0.76-1.46 [facility] Comment on above: Performed By: #### T SH, FT3 #### [facility] [address] [address] [address] Herve Machado LIPID PROFILEon 09-28-2021 CHOL-HDL RATIO NORM SEE BELOW Normal [facility] Comment on above: Result Comment: 3.3 - 4.4 LOW RISK 4.4 - 7.1 AVERAGE RISK 7.1 - 11.0 MODERATE RISK >11.0 HIGH RISK Performed By: #### L IPID, TSH #### [facility] [address] [address] [address] Herve Machado Cholesterol [Mass/Vol] 223 mg/dL Critically high <=200 [facility] Comment on above: Performed By: #### L IPID, TSH #### [facility] [address] [address] [address] Herve Machado Cholesterol in HDL [Mass/Vol] 53 mg/dL Normal 40-60 [facility] Comment on above: Performed By: #### L IPID, TSH #### [facility] [address] [address] [address] Herve Machado Cholesterol in LDL [Mass/Vol] 152.2 mg/dL Normal [facility] Comment on above: Performed By: #### L IPID, TSH #### [facility] [address] [address] [address] Herve Machado Cholesterol.total/Choles terol in HDL [Mass ratio] 4.2 {ratio} Normal [facility] Comment on above: Performed By: #### L IPID, TSH #### [facility] [address] [address] [address] Herve Machado HDL NORMAL > or = 60 mg/dl - LOW CARDIOVASCULAR RISK <40 mg/dl - HIGH CARDIOVASCULAR RISK Normal [facility] Comment on above: Performed By: #### L IPID, TSH #### [facility] [address] [address] [address] Herve Machado LDL CALC NORMAL SEE BELOW Normal [facility] Comment on above: Result Comment: <100 mg/dl OPTIMAL 100 - 129 mg/dl NEAR OR ABOVE OPTIMAL 130 - 159 mg/dl BORDERLINE HIGH 160 - 189 mg/dl HIGH >190 mg/dl VERY HIGH Performed By: #### L IPID, TSH #### [facility] [address] [place] [address] Dr. Herve Machado Triglyceride [Mass/Vol] 89 mg/dL Normal <=150 [facility] Comment on above: Performed By: #### L IPID, TSH #### [facility] [address] [place] [address] Dr. Herve Machado VLDL CALC 17.8 mg/dL Normal [facility] Comment on above: Performed By: #### L IPID, TSH #### [facility] [address] [place] [address] Dr. Herve Machado TSHon 09-28-2021 TSH 1.423 uIU/mL Normal 0.358-3.740 [facility] Comment on above: Performed By: #### T SH, FT3 #### [facility] [address] [place] [address] Dr. Herve Machado TSH RANGE SEE BELOW Normal [facility] Comment on above: Result Comment: <0.3 4 UIU/ml HYPERTHYROID 0.34-5.60 UIU/ml EUTHYROID >5.60 UIU/ml HYPOTHYROID Performed By: #### T SH, FT3 #### [facility] [address] [place] [address] Dr. Herve Machado Vital Signs Date Time Vital Sign Value Performing Clinician Faci lity 03-29-2024 09:10-0500 Body height 139.7 cm Jean Quick MD Work Phone: [facility] 03-29-2024 09:10-0500 Body mass index (BMI) [Ratio] 31.38 kg/m2 Jean Quick MD Work Phone: [facility] 03-29-2024 09:10-0500 Body weight 61.24 kg Jean Quick MD Work Phone: [facility] 03-29-2024 09:10-0500 Diastolic blood pressure 64 mm[Hg] Jean Quick MD Work Phone: [facility] 03-29-2024 09:10-0500 Heart rate 100 /min Jean Quick MD Work Phone: [facility] 03-29-2024 09:10-0500 Respiratory rate 20 /min Jean Quick MD Work Phone: [facility] 03-29-2024 09:10-0500 Systolic blood pressure 124 mm[Hg] Jean Quick MD Work Phone: [facility] 01-07-2024 09:06-0400 Body mass index (BMI) [Ratio] 31.75 kg/m2 Stella Aicantonioz RECEIVABLE MANAGER Work Phone: [facility] 01-07-2024 09:06-0400 Body temperature 98.29 [degF] Stella Aichkrishanz RECEIVABLE MANAGER Work Phone: [facility] 01-07-2024 09:06-0400 Body weight 61.96 kg Stella Aichholz RECEIVABLE MANAGER Work Phone: [facility] 01-07-2024 09:06-0400 Diastolic blood pressure 76 mm[Hg] Stella Aichholz RECEIVABLE MANAGER Work Phone: [facility] 01-07-2024 09:06-0400 Heart rate 107 /min Stella Aichholz RECEIVABLE MANAGER Work Phone: [facility] 01-07-2024 09:06-0400 Respiratory rate 19 /min Stella Aichholz RECEIVABLE MANAGER Work Phone: [facility] 01-07-2024 09:06-0400 SaO2% (BldA) [Mass fraction] 97 % Stella Aichholz RECEIVABLE MANAGER Work Phone: [facility] 01-07-2024 09:06-0400 Systolic blood pressure 116 mm[Hg] Stella Aichholz RECEIVABLE MANAGER Work Phone: [facility] Healthcare Encounters Encounter Date Encounter Type Care Provider Facility Start: 06-24-2024 End: 06-24-2024 Orders Only Stella Gerson RECEIVABLE MANAGER Work Phone: [facility] Comment on above: Environmental allerg ies (Primary Dx) Start: 05-19-2024 End: 05-19-2024 Refill Stella Aichholz RECEIVABLE MANAGER Work Phone: [facility] Comment on above: Type 2 diabetes leah itus without complications (CMS/HCC); Other specified anxiety disorders; Mild episode of recurrent major depressive disorder (HCC) (CMS/HCC) Start: 04-16-2024 End: 04-18-2024 Refill Stella Gerson RECEIVABLE MANAGER Work Phone: [facility] Comment on above: Type 2 diabetes leah itus without complications (CMS/HCC); Environmental allergies Start: 04-10-2024 End: 04-11-2024 Refill Stella Gerson RECEIVABLE MANAGER Work Phone: [facility] Comment on above: Type 2 diabetes leah itus without complications ([facility]/HCC) Start: 03-29-2024 End: 03-29-2024 Bamboo flowsheet Jean Quick MD Work Phone: [facility] Start: 03-29-2024 End: 03-29-2024 Bamboo flowsheet Jean Quick MD Work Phone: [facility] Start: 03-29-2024 End: 03-29-2024 Office outpatient visit 25 minutes Jean Quick MD Work Phone: [facility] Comment on above: Hypercalcemia (Prima ry Dx); Vitamin D deficiency; Hypomagnesemia; Osteopenia of multiple sites Start: 03-29-2024 End: 03-29-2024 ambulatory JEAN QUICK Not Available Start: 03-22-2024 End: 03-22-2024 ambulatory Stella Nieto Facility:[facility] Start: 03-19-2024 End: 03-19-2024 Refill Stella Jessez RECEIVABLE MANAGER Work Phone: [facility] Comment on above: Hypothyroidism, unsp ecified type (CMS/HCC) Start: 03-02-2024 End: 03-02-2024 Refill Melissa Olguin MA [facility] Comment on above: Type 2 diabetes leah itus without complications (CMS/HCC); Mixed hyperlipidemia (CMS/HCC) Start: 02-03-2024 End: 02-03-2024 Clinisync Result Encounter Stella Aichholz RECEIVABLE MANAGER Work Phone: [facility] External Department Unsolicited Start: 02-03-2024 End: 02-03-2024 Clinisync Result Encounter Stella Aichholz RECEIVABLE MANAGER Work Phone: [facility] External Department Unsolicited Start: 01-28-2024 End: 01-28-2024 Refill Stella Aichholz RECEIVABLE MANAGER Work Phone: [facility] Comment on above: Anxiety in acute str ess reaction ([facility]) (Primary Dx); Dental disease Start: 01-07-2024 End: 01-07-2024 Bamboo flowsheet Stella Aichholz RECEIVABLE MANAGER Work Phone: [facility] Start: 01-07-2024 End: 01-07-2024 Bamboo flowsheet Stella Aichholz RECEIVABLE MANAGER Work Phone: [facility] Start: 01-07-2024 End: 01-07-2024 Patient encounter procedure Stella Aichholz RECEIVABLE MANAGER Work Phone: [facility] Comment on above: Encounter for subseq uent annual wellness visit (AWV) in Medicare patient (Primary Dx); Type 2 diabetes mellitus without complication, without long-term current use of insulin ([facility]/HCC); Hypothyroidism, unspecified type (CMS/HCC); Mild episode of recurrent major depressive disorder (HCC) (CMS/HCC); Primary hypertension (CMS/HCC); Obesity (BMI 30-39.9) Start: 01-07-2024 End: 01-07-2024 ambulatory STELLA AICHHOLZ Not Available Start: 12-27-2023 End: 12-29-2023 Refill Stella Aichholz RECEIVABLE MANAGER Work Phone: [facility] Comment on above: Hypothyroidism, unsp ecified type (CMS/HCC) Start: 10-07-2023 End: 10-07-2023 ambulatory STELLA AICHHOLZ Not Available Start: 09-25-2023 End: 09-25-2023 Patient encounter procedure Stella Aichholz Work Phone: [facility] [place] Work Phone: Start: 09-25-2023 End: 09-25-2023 ambulatory Stella J Aichholz Work Phone: [facility] Work Phone: Start: 07-22-2023 End: 07-22-2023 ambulatory STELLA AICHHOLZ Not Available Start: 07-07-2023 End: 07-07-2023 ambulatory STELLA AICHHOLZ Not Available Start: 06-05-2023 End: 06-06-2023 ambulatory [facility] Start: 04-23-2023 End: 04-23-2023 ambulatory STELLA AICHHOLZ Not Available Start: 04-02-2023 End: 04-02-2023 ambulatory STELLA AICHHOLZ Not Available Start: 04-01-2023 End: 04-01-2023 ambulatory STELLA AICHHOLZ Not Available Start: 03-26-2023 End: 03-26-2023 ambulatory Stella J Aichholz Work Phone: [facility] Work Phone: Start: 03-26-2023 End: 03-26-2023 Patient encounter procedure Stella Aichholz Work Phone: [facility] [place] Work Phone: Start: 09-06-2022 ambulatory Faye Umana ty:Mateo ATKINS Start: 09-02-2022 End: 09-03-2022 ambulatory SANITARIAN STELLA AICHHOLZ Facility: Start: 08-27-2022 End: 08-27-2022 Lab Drop off Larissa OROZCO [facility] Start: 08-27-2022 End: 08-28-2022 ambulatory Larissa HORTONAM Facility:[facility] Start: 08-12-2022 End: 08-13-2022 ambulatory SANITARIAN STELLA AICHHOLZ Facility:[facility] Start: 08-02-2022 End: 08-03-2022 ambulatory F[facility] Start: 07-15-2022 End: 07-16-2022 ambulatory SANITARIAN STELLA AICHHOLZ Facility:[facility] Start: 07-11-2022 ambulatory [facility] Start: 07-04-2022 End: 07-05-[address] LIZY MEADE Facility:[facility] Start: 04-04-2022 End: 04-05-2022 ambulatory SANITARIAN STELLA AICHHOLZ Facility:[facility] Start: 02-28-2022 End: 03-01-2022 ambulatory SANITARIAN STELLA AICHHOLZ Facility:[facility] Start: 11-27-2021 End: 11-28-2021 ambulatory SANITARIAN STELLA AICHHOLZ Facility:[facility] Start: 10-25-2021 End: 10-26-2021 ambulatory SANITARIAN STELLA AICHHOLZ Facility:[facility] Start: 09-28-2021 End: 09-29-2021 ambulatory SANITARIAN STELLA AICHHOLZ Facility:[facility] Start: 10-23-2017 End: 10-24-2017 Ambulatory DEFAULT PHYSICIAN Facility:[facility] Start: 10-13-2017 End: 10-14-2017 Ambulatory DEFAULT PHYSICIAN Facility:[facility] Procedures Date Procedure Procedure Detail Performing Clinician Start: 02-03-2024 MLR HEMOGLOBIN A1C Stella Aicleydaholz RECEIVABLE MANAGER Work Phone: Start: 07-11-2023 Mammography Stella Aichh olz RECEIVABLE MANAGER Work Phone: Start: 08-27-2022 Colonoscopy Stella Aichh olz RECEIVABLE MANAGER Work Phone: Plan of Treatment Date Care Activity Detail Author Start: 08-27-2032 Screening for malignant neoplasm of colon [facility] Start: 06-24-2025 Glaucoma screening Diabetes: R etinopathy Screening [facility] Start: 03-28-2025 End: 03-28-2025 Patient encounter procedure 03/28/2025 9:00 AM EST Office Visit [facility] [address] [place] [phone] Jean Quick MD [address] [place] [address] [facility] Start: 01-06-2025 Medicare Annual Wellness (AWV) Medicare Annual Wellness (AWV) [facility] Start: 08-13-2024 Urine screening for protein Diabetes: Urine Protein Screening [facility] Start: 07-10-2024 Screening for malignant neoplasm of breast Mammogram [facility] Start: 07-07-2024 End: 07-07-2024 Patient encounter procedure 07/07/2024 9:00 AM EDT Office Visit [facility] [address] [address] Stella Nieto NP [address] [place] [address] [facility] Start: 05-05-2024 Hemoglobin A1c measurement Diabetes: Hemoglobin A1C [facility] Start: 03-29-2024 End: 03-29-2025 25-hydroxyvitamin D3 [Mass/volume] in Serum or Plasma Vitamin D 25 hydroxy Total Lab Routine Vitamin D deficiency Expected: 03/29/2024 (Approximate), Expires: 03/29/2025 [facility] Work Phone: Comment on above: Expected: 03/29/2024 (Approximate), Expires: 03/29/2025 Start: 03-29-2024 End: 03-29-2025 Parathyrin.intact [Mass/volume] in Serum or Plasma PTH, intact Lab Routine Hypercalcemia Expected: 03/29/2024 (Approximate), Expires: 03/29/2025 [facility] Comment on above: Expected: 03/29/2024 (Approximate), Expires: 03/29/2025 Start: 03-29-2024 End: 03-29-2025 Renal function panel Renal function panel Lab Routine Hypercalcemia Expected: 03/29/2024 (Approximate), Expires: 03/29/2025 [facility] Comment on above: Expected: 03/29/2024 (Approximate), Expires: 03/29/2025 Start: 03-29-2024 End: 03-29-2024 Patient encounter procedure [facility] Comment on above: Arrived Start: 02-19-2024 Influenza vaccination Influenza Vacc ine (#1) [facility] Comment on above: Postponed from 12/20 (Patient Does Not Have Time) Start: 01-07-2024 End: 01-06-2025 Hemoglobin A1c/Hemoglobin.total in Blood Hemoglobin A1c Lab Routine Type 2 diabetes mellitus without complication, without long-term current use of insulin ([facility]) Expected: 01/07/2024 (Approximate), Expires: 01/06/2025 [facility] Work Phone: Comment on above: Expected: 01/07/2024 (Approximate), Expires: 01/06/2025 Start: 01-07-2024 Medicare Annual Wellness (AWV) Medicare Annual Wellness (AWV) [facility] Start: 01-07-2024 End: 01-07-2024 Patient encounter procedure [facility] Comment on above: Arrived Start: 12-21-2023 Influenza vaccination Influenza Vacc ine (#1) [facility] Start: 11-13-2023 Hemoglobin A1c measurement Diabetes: Hemoglobin A1C [facility] Start: 07-23-2023 Hemoglobin A1c measurement Diabetes: Hemoglobin A1C [facility] Start: 1964 Glaucoma screening Diabetes: R etinopathy Screening [facility] Start: 1955 Screening for malignant neoplasm of colon [facility] Immunizations Immunization Date Immunization Notes Care Provider Fa cility 01-14-2023 Influenza, Seasonal, Quadrivalent, Adjuvanted Stella Gerson RECEIVABLE MANAGER Work Phone: [facility] 01-14-2023 SARS-COV-2 (COVID-19 ) vaccine, mRNA, spike protein, LNP, PF, digna-sucrose, 30 mcg/0.3 mL Stella Gerson RECEIVABLE MANAGER Work Phone: [facility] 01-14-2023 influenza virus vaccine, unspecified formulation Stella Gerson RECEIVABLE MANAGER Work Phone: [facility] 04-23-[address] 12 Years [address] Older Stella Gerson RECEIVABLE MANAGER Work Phone: [facility] 04-23-2022 SARS-CoV-2 (COVID-19 ) [id number] Dias SALAM [facility] 07-30-2021 Pfizer Myles Cap SARS-CoV-2 Vaccination Stella Gerson RECEIVABLE MANAGER Work Phone: [facility] 07-30-2021 SARS-CoV-2 mRNA (fwaafcumnlj-taqy-yohxq se) vaccine Dias SALAM [facility] 07-30-2021 SARS-CoV-2, Unspecified Stella Gerson RECEIVABLE MANAGER Work Phone: [facility] 02-02-2021 influenza virus vaccine, unspecified formulation Dias SALAM [facility] 02-02-2021 Influenza, High-dose Seasonal, Quadrivalent, Preservative Free Stella Gerson RECEIVABLE MANAGER Work Phone: [facility] 02-02-2021 pneumococcal conjuga te vaccine, 13 valent Dias SALAM [facility] 01-15-2021 SARS-CoV-2 (COVID-19 ) mRNA BNT-162b2 vax Dias SALAM [facility] 07-11-2020 SARS-CoV-2 (COVID-19 ) mRNA BNT-162b2 vax Dias SALAM [facility] 06-19-2020 SARS-CoV-2 (COVID-19 ) mRNA BNT-162b2 vax Dias SALAM [facility] 01-22-2020 influenza virus vaccine, unspecified formulation Dias SALAM [facility] 01-22-2020 Influenza, High-dose Seasonal, Quadrivalent, Preservative Free Stella Aichholz RECEIVABLE MANAGER Work Phone: [facility] 04-26-2019 influenza virus vaccine, unspecified formulation Dias SALAM [facility] 04-26-2019 Seasonal, quadrivale nt, recombinant, injectable influenza vaccine, preservative free Stella Aichholz RECEIVABLE MANAGER Work Phone: [facility] 02-06-2018 influenza virus vaccine, unspecified formulation Dias SALAM [facility] 02-06-2018 influenza, injectabl e, quadrivalent, preservative free Stella Aichholz RECEIVABLE MANAGER Work Phone: [facility] 01-30-2017 influenza virus vaccine, unspecified formulation Dias SALAM [facility] 01-30-2017 influenza, seasonal, injectable, preservative free Stella Aichholz RECEIVABLE MANAGER Work Phone: [facility] 01-30-2016 zoster vaccine, live Dias S AMADAM [facility] 01-15-2016 influenza virus vaccine, unspecified formulation Dias SALAM [facility] 01-15-2016 influenza, seasonal, injectable, preservative free Stella Aichholz RECEIVABLE MANAGER Work Phone: [facility] 04-22-2012 influenza virus vaccine, whole virus Stella Aichholz RECEIVABLE MANAGER Work Phone: [facility] 04-22-2012 influenza, injectabl e, quadrivalent, contains preservative Stella Aichholz RECEIVABLE MANAGER Work Phone: [facility] 04-22-2012 influenza, whole Dias SALAM [facility] 02-06-2009 influenza virus vaccine, whole virus Stella Mendezsachin RECEIVABLE MANAGER Work Phone: [facility] 02-06-2009 influenza, injectabl e, quadrivalent, contains preservative Stella Mendezkrishanbreezy RECEIVABLE MANAGER Work Phone: [facility] 02-06-2009 influenza, whole Dias SALAM [facility] Payers Date Payer Category Payer Self-pay [id number] 2019 Medicare [id number] 1959 Medicaid [id number] 1960 Medicare [id number] 1955 Unknown [id number] 2.16.84 0.1.520401.3.579.2.593 1954 Unknown [id number] 2.16.84 0.1.094771.3.579.2.593 1954 Unknown [id number] 2.16.84 0.1.184701.3.579.2.593 1954 Unknown [id number] 2.16.84 0.1.906824.3.579.2.593 1954 Unknown [id number] 2.16.84 0.1.073715.3.579.2.593 1954 Unknown [id number] 2.16.84 0.1.797330.3.579.2.593 1954 Unknown [id number] 2.16.84 0.1.823595.3.579.2.593 1954 Unknown [id number] 2.16.84 0.1.420845.3.579.2.593 1954 Unknown [id number] 2.16.84 0.1.349508.3.579.2.593 1954 Unknown [id number] 2.16.8 40.1.261908.3.579.2.727 1954 Unknown [id number] 2.16.8 40.1.799584.3.579.2.727 1954 Unknown [id number] 2.16.8 40.1.955721.3.579.2.727 1954 Unknown [id number] 2.16.8 40.1.850540.3.579.2.727 1954 Unknown [id number] 2.16.8 40.1.847877.3.579.2.727 1954 Unknown [id number] 2.16.8 40.1.902082.3.579.2.1286 1954 Unknown [id number] 2.16.84 0.1.211527.3.579.2.1259 1954 Unknown [id number] 2.16.84 0.1.953785.3.579.2.1259 1954 Unknown [id number] 2.16.84 0.1.835210.3.579.2.1259 1954 Unknown [id number] 2.16.84 0.1.351283.3.579.2.1259 1954 Unknown [id number] 2.16.84 0.1.685105.3.579.2.1259 1954 Unknown [id number] 2.16.840 .1.570561.3.579.2.1259 1954 Unknown [id number] 2.16.840 .1.990919.3.579.2.1259 1954 Unknown [id number] 2.16.840 .1.525613.3.579.2.1259 Unknown Unknown [id number] 2.16.8 40.1.795407.3.579.2.531 Unknown [id number] 2.16.8 40.1.748204.3.579.2.531 Social History Date Type Detail Facility Start: 08-02-2022 End: 11-25-2022 Tobacco smoking status Never smoked tobacco (finding) [facility] Tobacco smoking status Never Flex [facility] Start: 03-26-2023 End: 01-07-2024 Sex Assigned At Female [facility] Start: 1955 Sex Assigned At Female [facility] Start: 11-25-2022 Tobacco use and exposure Smokeless tobacco non-user [facility] Start: 01-07-2024 End: 03-10-2024 Alcoholic beverage intake Ex-drinker (finding) [facility] [...] [facility] Start: 11-25-2022 Tobacco Comment Boyfriend smokes [facility] Start: 11-23-2022 Alcohol Comment caffeine intake: 1-2 cups per day [facility] Start: 11-12-2022 Gender identity Identifies as female gender (finding) [facility] Start: 11-12-2022 Sexual orientation Heterosexual (finding) [facility] Medical Equipment Procedure Code Equipment Code Equipment Origin al Text Equipment Identifier Dates Once daily [id number] Start: 06-26-2023 Clinical Notes 01-07-2024 to 03-29-2024 Jean Quick MD - 03/29/2024 9:10 AM Gordon Nieto, RICHARD - 01/07/2024 9:51 AM Rio Nieto, RICHARD - 01/07/2024 9:38 AM Rio Nieto, RICHARD - 01/07/2024 9:37 AM EDT Note Date & Type Note Facility 03-29-2024 History of Present illness Narrative Emily Adorno is a 68 y.o. female Jean Quick MD presents with chief complaint of Thyroid Problem and Follow-up (LAB) HPI: Interim history: 03/2024 Follow-up visit 03/29/2024 for history of hypercalcemia. on 2000 units. She is on alendronate 35 due to osteoporosis. lab on 03/2024 calcium 10.3 (8.6-10.3), magnesium 1.8 (1.9-2.7), vit d 34, PTH 67(12-88). Interim history: 09/2023 Follow-up visit 09/29/2023 for history of hypercalcemia. she is still doing 2000 units. She is on alendronate 35 due to osteoporosis. new lab on 09/2023 calcium 10.3 (8.6-10.3), magnesium 1.8 (1.9-2.7), vit d 37, PTH 74(12-88). Interim history: 03/2023 Follow-up visit 03/31/2023 for history of hypercalcemia. she is still doing 2000 units. She is on alendronate 35 due to osteoporosis. new lab on 03/2023 calcium 10.5, magnesium 1.6 (1.9-2.7), vit d 38, PTH 105(12-88). Interim history: 03/2022 Follow-up visit 03/25/2022 for history of hypercalcemia. she is still doing 2000 units. She is on alendronate 35 due to osteoporosis. saw Dr. Raymond on 09/2020 no need for surgery . Interim history: 03/2021 Follow-up visit 04/02/2021 for history of hypercalcemia. she is still doing 2000 units. She is on alendronate 35 due to osteoporosis. lab in 03/2021 calcium 10.4(8.2-10.2), vit d 31, PTH 81(12-88), saw Dr. Raymond on 09/2020 no need for surgery Interim history: 03/2020 Followup visit 04/03/20 for history of hypercalcemia. He is still doing 2000 units. She is on alendronate 35 due to osteoporosis. lab in 03/2020 calcium 10.1(8.2-10.1), vit d 33, PTH mildly high 92(12-88) Interim history: 09/2019 Followup visit 10/05/19 for history of hypercalcemia. She saw Dr. Arreaga in August 2019. He signed off because calcium PTH is consistently in the normal range. He is still doing 2000 units. She is on alendronate 35 due to osteoporosis. Interim History: 04/2019. Follow-up visit of 05/04/2019 for followup hypercalcemia. Labs done in April 2019. Calcium 10.9, mildly high (8.2-10.2), phosphorus 4.1, albumin 4.1, vitamin D 55, and PTH 115 (12-88). She is on 2000 units 3 times a week. She saw Dr. Thomson in February 2019, is still watching. No need for surgery. Interim history: 10/2018 Follow-up visit 11/03/2018 for hypercalcemia. Last visit we sent her to Dr. Arreaga for evaluation. He did ultrasound and sestamibi scan. Not able to localize parathyroid adenoma so he decided to hold on surgery. Recent labs in 09/2018 back to normal. Calcium 9.7 (8.2-10.2), vitamin D 37, PTH 26 (15-65) so does not have features of primary hyperparathyroidism with these kinds of labs. Currently she is on vitamin D 2000 three times a week and she is doing good. Interim history 07/2018 Follow-up visit 07/28/2018 for hypercalcemia. GFR above 60, calcium 10.5 (8.4-10.2), vitamin D 39, phosphorus 3.3 (2.5-4.5), PTH 60 (16-60). She is on alendronate 35 once weekly and vitamin D 1000. She lost 76 pounds over the last two years. Interim History 10/18: Followup visit on 01/27/2018 or hypercalcemia. Calcium 10.4 (8.4-10.2), kidney function within normal limits. GFR above 60. Vitamin D 40, PTH 37 (15-65). She is on alendronate 35 mg once weekly and vitamin D 2000; last time we decreased it from 5000. Interim history 08/06: Follow up visit on 07/28/17 for lab for hypercalcemia. PTH 55 [15-65], BUN 11, creatinine 0.69, calcium 10.8 [8.4-10.2]. 24-hour urine calcium 183 mg [100-300], 24-hour urine total volume 1100. HPI: 07/06 Follow up patient sent [facility] [place] C[place] for hypercalcemia. The last time seen by me in old office in and we suspect primary hyperparathyroidism and then her last lab done in calcium 10.8 (8.4-10.2) and vitamin d 45 showed that also decreased from 5,000 to 2,000 units daily. Back in her vitamin d 28 and back in calcium 10.4 and parathyroid hormone 84 (16-65). When I evaluated her in May, 24-hour urine done which was on the low side 74 mg (100-300) and she has history of osteopenia. She is on Alendronate preventative dose 35 mg once weekly. SUBJECTIVE: MEDICATIONS: Current Outpatient Medications Medication Instructions alendronate (FOSAMAX) 35 mg, Oral, Every 7 days atorvastatin (LIPITOR) 80 mg, Oral, Every evening cetirizine (ZYRTEC) 10 mg, Oral, Daily DULoxetine (CYMBALTA) 30 mg, Oral, Daily glucose blood (True Metrix Blood Glucose Test) test strip Once daily ibuprofen 800 mg, 3 times daily levothyroxine (SYNTHROID, LEVOXYL) 88 mcg, Oral, Daily before breakfast LORazepam (Ativan) 0.5 MG tablet 1 dose the night before the scheduled dental procedure, then may repeat a dose in the morning about 2 hours prior to procedure. Must have a trackless trolley driver for this metFORMIN XR (GLUCOPHAGE-XR) 750 mg, Oral, 2 times daily before meals omeprazole (PRILOSEC) 20 mg, Oral, Daily before breakfast Ozempic (0.25 or 0.5 MG/DOSE) 0.5 mg, Injection, Weekly pioglitazone (ACTOS) 15 mg, Oral, Daily ALLERGIES: Allergies Allergen Reactions Penicillins Swelling Past Medical History: Diagnosis Date Abnormal EKG Anemia Candidiasis Decreased hearing of right ear Depression with anxiety Environmental allergies Facet arthropathy, lumbar Family history of colonic polyps 11/19/2022 GERD (gastroesophageal reflux disease) Hemorrhoids 11/19/2022 History of anemia History of colon polyps 11/19/2022 Hypercalcemia Hypercholesterolemia (CMS/HCC) Hyperlipidemia (CMS/HCC) Hyperparathyroidism (CMS/HCC) Hypertension (CMS/HCC) Hypomagnesemia Hypothyroidism (CMS/HCC) Nausea and/or vomiting Osteopenia Osteoporosis (CMS/HCC) Restless legs Right thigh pain Seborrhea Shingles Thyroid nodule (CMS/HCC) Trapezius strain, left, subsequent encounter Type 2 diabetes mellitus (CMS/HCC) Vitamin D deficiency White matter abnormality on MRI of brain Past Surgical History: Procedure Laterality Date ADENOIDECTOMY SECTION, LOW TRANSVERSE x3- 82/84/86 OTHER SURGICAL HISTORY 1980 uterine surgery TONSILLECTOMY REVIEW OF SYMPTOMS: 14 POINT OF SYSTEM REVIEWED AND NEGATIVE OBJECTIVE: Visit Vitals BP 124/64 Pulse 100 Resp 20 Ht 4' 7 Wt 135 lb BMI 31.38 kg/m Smoking Status Never BSA 1.54 m Physical Exam Constitutional: Appearance: Normal appearance. She is normal weight. HENT: Head: Normocephalic and atraumatic. Right Ear: External ear normal. Nose: Nose normal. Mouth/Throat: Pharynx: Oropharynx is clear. Eyes: Extraocular Movements: Extraocular movements intact. Pupils: Pupils are equal, round, and reactive to light. Cardiovascular: Rate and Rhythm: Normal rate and regular rhythm. Pulmonary: Effort: Pulmonary effort is normal. Abdominal: General: Abdomen is flat. Palpations: Abdomen is soft. Musculoskeletal: General: Normal range of motion. Skin: General: Skin is warm. Neurological: General: No focal deficit present. Mental Status: She is alert. Psychiatric: Mood and Affect: Mood normal. Behavior: Behavior normal. ASSESSMENT AND PLAN: Assessment/Plan Diagnoses and all orders for this visit: Hypercalcemia - Renal function panel; Future - PTH, intact; Future Calcium High normal, PTH med normal, no need for surgical evaluation, we will watch, stay away from calcium supplements or multivitamin Vitamin D deficiency - Vitamin D 25 hydroxy Total; Future level 34 continue with 2000 units day Hypomagnesemia Level 1.8, low normal continue with 400 mg once daily Osteopenia of multiple sites On bisphosphonate to follow with her PCP Follow up in about 1 year (around 03/29/2025). documented in this encounter [facility] 01-07-2024 History of Present illness Narrative Associated Problem(s): Hypertension (CMS/HCC) Continue current meds No changes Fu in 3 months Associated Problem(s): Mild episode of recurrent major depressive disorder (HCC) (CMS/HCC) Stable on current meds no changes needed Associated Problem(s): Hypothyroidism (CMS/HCC) Continue with thyroid med and lab monitoring Associated Problem(s): Type 2 diabetes mellitus (CMS/HCC) Check blood sugars daily, notify if <70 or >200. Take medications (pills or insulin) as directed. Monitor for s/s of hypoglycemia (sweaty, dizziness, nausea, vomiting, or shakiness). Watch for increase in thirst, urination, or appetite. Inspect feet frequently monitoring for open wounds , and also recommend yearly eye exam. Pt should attempt to remain as physically active as chronic conditions allow, as well as trying to follow a diet low in carbohydrates, and simple sugars. Has an eye appt next month Fu in 3 months Associated Problem(s): Encounter for subsequent annual wellness visit (AWV) in Medicare patient Reviewed Ht/Wt/BMI Recommend eye exam yearly Recommend dental exams twice a year Balance work/leisure activities Exercises is recommended most days of the week (appropriate as chronic conditions allow) Follow up yearly and prn [facility]-retinopathy BS today was 136 Images from the original note were not included. Emily Adorno is a 68 y.o. female presents with chief complaint of No chief complaint on file. HPI: Here AVW: Diet: balanced Activity: age appropriate Mental Health: good Concerns: none Living Will and HCPOA: has in place Hypertension This is a chronic problem. The current episode started more than 1 year ago. The problem is unchanged. The problem is controlled. Pertinent negatives include no anxiety, chest pain, headaches, palpitations, peripheral edema or shortness of breath. There are no associated agents to hypertension. Risk factors for coronary artery disease include dyslipidemia, diabetes mellitus and obesity. Past treatments include LEXII inhibitors. The current treatment provides significant improvement. There are no compliance problems. Diabetes She presents for her follow-up diabetic visit. She has type 2 diabetes mellitus. Pertinent negatives for hypoglycemia include no dizziness, headaches, nervousness/anxiousness, seizures or tremors. There are no diabetic associated symptoms. Pertinent negatives for diabetes include no chest pain, no polydipsia, no polyphagia and no polyuria. Symptoms are stable. Current diabetic treatment includes oral agent (monotherapy) (GLP-1). She is compliant with treatment all of the time. An LEXII inhibitor/angiotensin II receptor german is being taken. She does not see a wheat cleaner.Eye exam is current. SUBJECTIVE: MEDICATIONS: Current Outpatient Medications Medication Instructions alendronate (FOSAMAX) 35 mg, Oral, Every 7 days aspirin 81 mg, Oral, Daily atorvastatin (LIPITOR) 80 mg, Oral, Every evening cetirizine (ZYRTEC) 10 mg, Oral, Daily DULoxetine (CYMBALTA) 30 mg, Oral, Daily glucose blood (True Metrix Blood Glucose Test) test strip Once daily levothyroxine (SYNTHROID, LEVOXYL) 88 mcg, Oral, Daily before breakfast lisinopril 10 mg, Oral, Every morning LORazepam (Ativan) 0.5 MG tablet 1 dose the night before the scheduled dental procedure, then may repeat a dose in the morning about 2 hours prior to procedure. Must have a trackless trolley driver for this magnesium oxide (MAG-OX) 400 mg, Oral, Daily metFORMIN XR (GLUCOPHAGE-XR) 750 mg, Oral, 2 times daily before meals omeprazole (PRILOSEC) 20 mg, Oral, Daily before breakfast Ozempic (0.25 or 0.5 MG/DOSE) 0.5 mg, Injection, Weekly pioglitazone (ACTOS) 15 mg, Oral, Daily ALLERGIES: Allergies Allergen Reactions Penicillins Swelling REVIEW OF SYMPTOMS: Review of Systems Constitutional: Negative for appetite change, chills and fever. HENT: Negative for congestion, ear pain and sore throat. Eyes: Negative for pain, discharge, redness and visual disturbance. Respiratory: Negative for cough, shortness of breath and wheezing. Cardiovascular: Negative for chest pain, palpitations and leg swelling. Gastrointestinal: Negative for abdominal pain, blood in stool, constipation, diarrhea, nausea and vomiting. Genitourinary: Negative for difficulty urinating, dysuria and frequency. Musculoskeletal: Negative for arthralgias, back pain, joint swelling and myalgias. Skin: Negative for rash and wound. Neurological: Negative for dizziness, tremors, seizures, syncope and headaches. Psychiatric/Behavioral: Negative for behavioral problems, self-injury and suicidal ideas. The patient is not nervous/anxious. Hematological: Does not bruise/bleed easily. Endocrine: Negative for polydipsia, polyphagia and polyuria. Allergic/Immunologic: Negative for environmental allergies and food allergies. PAST MEDICAL HISTORY Past Medical History: Diagnosis Date Abnormal EKG Anemia Candidiasis Decreased hearing of right ear Depression with anxiety Environmental allergies Facet arthropathy, lumbar Family history of colonic polyps 11/19/2022 GERD (gastroesophageal reflux disease) Hemorrhoids 11/19/2022 History of anemia History of colon polyps 11/19/2022 Hypercalcemia Hypercholesterolemia (CMS/HCC) Hyperlipidemia (CMS/HCC) Hypertension (CMS/HCC) Hypothyroidism (CMS/HCC) Nausea and/or vomiting Osteopenia Osteoporosis (CMS/HCC) Restless legs Right thigh pain Seborrhea Shingles Thyroid nodule (CMS/HCC) Trapezius strain, left, subsequent encounter Type 2 diabetes mellitus (CMS/HCC) Vitamin D deficiency White matter abnormality on MRI of brain Past Surgical History: Procedure Laterality Date ADENOIDECTOMY SECTION, LOW TRANSVERSE x3- 82/84/86 OTHER SURGICAL HISTORY 1981 uterine surgery TONSILLECTOMY family history includes Cancer in her maternal grandfather, mother, paternal grandfather, and sibling; Diabetes in her brother, child, father, maternal grandmother, mother, sibling, and sister; Diverticulitis in her father; Heart disease in her paternal grandmother; Heart failure in her mother; Hyperlipidemia in her father; Hypertension in her child, father, and mother; Mental illness in her father; Stroke in her maternal grandmother and mother; Thyroid disease in her mother. OBJECTIVE: Visit Vitals BP 116/76 (BP Location: Left arm, Patient Position: Sitting, BP Cuff Size: Adult long) Pulse 107 Temp 98.3 F (Temporal) Resp 19 Wt 136 lb 9.6 oz SpO2 97% BMI 31.75 kg/m Smoking Status Never BSA 1.55 m Physical Exam Vitals and nursing note reviewed. Constitutional: General: She is not in acute distress. Appearance: Normal appearance. HENT: Head: Normocephalic and atraumatic. Right Ear: External ear normal. Left Ear: External ear normal. Nose: Nose normal. Mouth/Throat: Mouth: Mucous membranes are moist. Eyes: Extraocular Movements: Extraocular movements intact. Conjunctiva/sclera: Conjunctivae normal. Neck: Vascular: No carotid bruit. Cardiovascular: Rate and Rhythm: Normal rate and regular rhythm. Pulses: Normal pulses. Heart sounds: Normal heart sounds. Pulmonary: Effort: Pulmonary effort is normal. Breath sounds: Normal breath sounds. Abdominal: General: Bowel sounds are normal. There is no distension. Palpations: Abdomen is soft. There is no mass. Tenderness: There is no abdominal tenderness. Musculoskeletal: General: Normal range of motion. Cervical back: Normal range of motion and neck supple. Lymphadenopathy: Cervical: No cervical adenopathy. Skin: General: Skin is warm and dry. Capillary Refill: Capillary refill takes 2 to 3 seconds. Findings: No rash. Neurological: General: No focal deficit present. Mental Status: She is alert and oriented to person, place, and time. Psychiatric: Mood and Affect: Mood normal. Behavior: Behavior normal. Thought Content: Thought content normal. Judgment: Judgment normal. ASSESSMENT AND PLAN: No follow-ups on file. Problem List Items Addressed This Visit Type 2 diabetes mellitus (CMS/HCC) Check blood sugars daily, notify if <70 or >200. Take medications (pills or insulin) as directed. Monitor for s/s of hypoglycemia (sweaty, dizziness, nausea, vomiting, or shakiness). Watch for increase in thirst, urination, or appetite. Inspect feet frequently monitoring for open wounds , and also recommend yearly eye exam. Pt should attempt to remain as physically active as chronic conditions allow, as well as trying to follow a diet low in carbohydrates, and simple sugars. Has an eye appt next month Fu in 3 months Relevant Orders Hemoglobin A1c Hypertension (CMS/HCC) Continue current meds No changes Fu in 3 months Hypothyroidism ([facility]) Continue with thyroid med and lab monitoring Obesity (BMI 30-39.9) Mild episode of recurrent major depressive disorder (HCC) ([facility]) Stable on current meds no changes needed Encounter for subsequent annual wellness visit (AWV) in Medicare patient - Primary Reviewed Ht/Wt/BMI Recommend eye exam yearly Recommend dental exams twice a year Balance work/leisure activities Exercises is recommended most days of the week (appropriate as chronic conditions allow) Follow up yearly and prn documented in this encounter [facility] Healthcare Evaluation + Plan note No data available for this section [facility] Evaluation note No assessment inform ation available [facility] Work Phone: Evaluation note Diagnosis Anxiety in acute stress reaction ([facility])- Primary Dental disease Unspecified disorder of the teeth and supporting structures documented in this encounter [facility] HealthcareEvaluation note* Diagnosis Type 2 diabetes mellitus without complication, without long-term current use of insulin ([facility])- Primary Obesity (BMI 30-39.9) Hyperparathyroidism ([facility]/HCC) Hyperparathyroidism, unspecified Primary hypertension ([facility]) Unspecified essential hypertension Gastroesophageal reflux disease without esophagitis Esophageal reflux Depression with anxiety Dysthymic disorder Primary hypertension ([facility]/HCC)- Primary Unspecified essential hypertension Vitamin D deficiency Type 2 diabetes mellitus without complication, without long-term current use of insulin ([facility]) Hypothyroidism, unspecified type ([facility]/HCC) Mixed hyperlipidemia ([facility]) Mixed hyperlipidemia Encounter for screening mammogram for malignant neoplasm of breast Hyperparathyroidism ([facility]) Hyperparathyroidism, unspecified Hyperparathyroidism, unspecified (E21.3) Hyperparathyroidism, unspecified Lateral epicondylitis of right elbow- Primary Obesity (BMI 30-39.9) Dental disease Unspecified disorder of the teeth and supporting structures Anxiety in acute stress reaction ([facility]/HCC) Type 2 diabetes mellitus without complications (CMS/HCC)- Primary Mixed hyperlipidemia (CMS/HCC) Mixed hyperlipidemia Other specified disorders of bone density and structure, unspecified site Environmental allergies Other allergy, other than to medicinal agents Other specified anxiety disorders Mild episode of recurrent major depressive disorder (HCC) (CMS/[facility]) Hypothyroidism, unspecified type (CMS/HCC) Essential (primary) hypertension (CMS/HCC) Unspecified essential hypertension Gastroesophageal reflux disease without esophagitis Esophageal reflux Hypomagnesemia Disorders of magnesium metabolism Primary hypertension ([facility]/HCC) Unspecified essential hypertension Type 2 diabetes mellitus without complication, without long-term current use of insulin ([facility]) Dental disease Unspecified disorder of the teeth and supporting structures Anxiety in acute stress reaction ([facility]) Encounter for subsequent annual wellness visit (AWV) in Medicare patient- Primary Type 2 diabetes mellitus without complication, without long-term current use of insulin ([facility]) Hypothyroidism, unspecified type ([facility]) Mild episode of recurrent major depressive disorder (HCC) ([facility]) Primary hypertension ([facility]) Unspecified essential hypertension Obesity (BMI 30-39.9) Type 2 diabetes mellitus without complications ([facility]) Mixed hyperlipidemia ([facility]) Mixed hyperlipidemia documented in this encounter [facility]* Diagnosis Type 2 diabetes mellitus without complication, without long-term current use of insulin ([facility])- Primary Obesity (BMI 30-39.9) Hyperparathyroidism ([facility]/HCC) Hyperparathyroidism, unspecified Primary hypertension ([facility]) Unspecified essential hypertension Gastroesophageal reflux disease without esophagitis Esophageal reflux Depression with anxiety Dysthymic disorder Primary hypertension ([facility])- Primary Unspecified essential hypertension Vitamin D deficiency Type 2 diabetes mellitus without complication, without long-term current use of insulin ([facility]) Hypothyroidism, unspecified type ([facility]/HCC) Mixed hyperlipidemia ([facility]) Mixed hyperlipidemia Encounter for screening mammogram for malignant neoplasm of breast Hyperparathyroidism ([facility]) Hyperparathyroidism, unspecified Hyperparathyroidism, unspecified (E21.3) Hyperparathyroidism, unspecified Lateral epicondylitis of right elbow- Primary Obesity (BMI 30-39.9) Dental disease Unspecified disorder of the teeth and supporting structures Anxiety in acute stress reaction (CMS/HCC) Type 2 diabetes mellitus without complications (CMS/HCC)- Primary Mixed hyperlipidemia (CMS/HCC) Mixed hyperlipidemia Other specified disorders of bone density and structure, unspecified site Environmental allergies Other allergy, other than to medicinal agents Other specified anxiety disorders Mild episode of recurrent major depressive disorder (HCC) (CMS/HCC) Hypothyroidism, unspecified type (CMS/HCC) Essential (primary) hypertension (CMS/HCC) Unspecified essential hypertension Gastroesophageal reflux disease without esophagitis Esophageal reflux Hypomagnesemia Disorders of magnesium metabolism Primary hypertension (CMS/HCC) Unspecified essential hypertension Type 2 diabetes mellitus without complication, without long-term current use of insulin (CMS/[facility]) Dental disease Unspecified disorder of the teeth and supporting structures Anxiety in acute stress reaction ([facility]) Encounter for subsequent annual wellness visit (AWV) in Medicare patient- Primary Type 2 diabetes mellitus without complication, without long-term current use of insulin ([facility]) Hypothyroidism, unspecified type (CMS/[facility]) Mild episode of recurrent major depressive disorder (HCC) ([facility]) Primary hypertension ([facility]) Unspecified essential hypertension Obesity (BMI 30-39.9) Hypothyroidism, unspecified type ([facility]/HCC) documented in this encounter [facility]Evaluation note* Diagnosis Type 2 diabetes mellitus without complication, without long-term current use of insulin ([facility])- Primary Obesity (BMI 30-39.9) Hyperparathyroidism ([facility]) Hyperparathyroidism, unspecified Primary hypertension ([facility]) Unspecified essential hypertension Gastroesophageal reflux disease without esophagitis Esophageal reflux Depression with anxiety Dysthymic disorder Primary hypertension ([facility])- Primary Unspecified essential hypertension Vitamin D deficiency Type 2 diabetes mellitus without complication, without long-term current use of insulin ([facility]) Hypothyroidism, unspecified type (CMS/HCC) Mixed hyperlipidemia ([facility]) Mixed hyperlipidemia Encounter for screening mammogram for malignant neoplasm of breast Hyperparathyroidism ([facility]) Hyperparathyroidism, unspecified Hyperparathyroidism, unspecified (E21.3) Hyperparathyroidism, unspecified Lateral epicondylitis of right elbow- Primary Obesity (BMI 30-39.9) Dental disease Unspecified disorder of the teeth and supporting structures Anxiety in acute stress reaction (CMS/HCC) Type 2 diabetes mellitus without complications (CMS/HCC)- Primary Mixed hyperlipidemia (CMS/HCC) Mixed hyperlipidemia Other specified disorders of bone density and structure, unspecified site Environmental allergies Other allergy, other than to medicinal agents Other specified anxiety disorders Mild episode of recurrent major depressive disorder (HCC) (CMS/HCC) Hypothyroidism, unspecified type (CMS/HCC) Essential (primary) hypertension (CMS/HCC) Unspecified essential hypertension Gastroesophageal reflux disease without esophagitis Esophageal reflux Hypomagnesemia Disorders of magnesium metabolism Primary hypertension (CMS/HCC) Unspecified essential hypertension Type 2 diabetes mellitus without complication, without long-term current use of insulin (CMS/HCC) Dental disease Unspecified disorder of the teeth and supporting structures Anxiety in acute stress reaction ([facility]) Encounter for subsequent annual wellness visit (AWV) in Medicare patient- Primary Type 2 diabetes mellitus without complication, without long-term current use of insulin ([facility]) Hypothyroidism, unspecified type (CMS/HCC) Mild episode of recurrent major depressive disorder (HCC) (CMS/HCC) Primary hypertension ([facility]) Unspecified essential hypertension Obesity (BMI 30-39.9) Hypercalcemia- Primary Vitamin D deficiency Hypomagnesemia Disorders of magnesium metabolism Osteopenia of multiple sites documented in this encounter [facility]* Diagnosis Encounter for subsequent annual wellness visit (AWV) in Medicare patient- Primary Type 2 diabetes mellitus without complication, without long-term current use of insulin ([facility]) Hypothyroidism, unspecified type (CMS/[facility]) Mild episode of recurrent major depressive disorder (HCC) ([facility]/HCC) Primary hypertension ([facility]) Unspecified essential hypertension Obesity (BMI 30-39.9) documented in this encounter [facility]* Diagnosis Hypothyroidism, unspecified type (CMS/HCC) documented in this encounter [facility]* Diagnosis Type 2 diabetes mellitus without complication, without long-term current use of insulin ([facility])- Primary Obesity (BMI 30-39.9) Hyperparathyroidism (CMS/HCC) Hyperparathyroidism, unspecified Primary hypertension (CMS/HCC) Unspecified essential hypertension Gastroesophageal reflux disease without esophagitis Esophageal reflux Depression with anxiety Dysthymic disorder Primary hypertension (CMS/HCC)- Primary Unspecified essential hypertension Vitamin D deficiency Type 2 diabetes mellitus without complication, without long-term current use of insulin ([facility]/HCC) Hypothyroidism, unspecified type (CMS/HCC) Mixed hyperlipidemia ([facility]) Mixed hyperlipidemia Encounter for screening mammogram for malignant neoplasm of breast Hyperparathyroidism ([facility]/HCC) Hyperparathyroidism, unspecified Hyperparathyroidism, unspecified (E21.3) Hyperparathyroidism, unspecified Lateral epicondylitis of right elbow- Primary Obesity (BMI 30-39.9) Dental disease Unspecified disorder of the teeth and supporting structures Anxiety in acute stress reaction (CMS/HCC) Type 2 diabetes mellitus without complications (CMS/HCC)- Primary Mixed hyperlipidemia (CMS/HCC) Mixed hyperlipidemia Other specified disorders of bone density and structure, unspecified site Environmental allergies Other allergy, other than to medicinal agents Other specified anxiety disorders Mild episode of recurrent major depressive disorder (HCC) ([facility]) Hypothyroidism, unspecified type (CMS/HCC) Essential (primary) hypertension (CMS/HCC) Unspecified essential hypertension Gastroesophageal reflux disease without esophagitis Esophageal reflux Hypomagnesemia Disorders of magnesium metabolism Primary hypertension (CMS/HCC) Unspecified essential hypertension Type 2 diabetes mellitus without complication, without long-term current use of insulin ([facility]) Dental disease Unspecified disorder of the teeth and supporting structures Anxiety in acute stress reaction ([facility]) Encounter for subsequent annual wellness visit (AWV) in Medicare patient- Primary Type 2 diabetes mellitus without complication, without long-term current use of insulin ([facility]) Hypothyroidism, unspecified type ([facility]) Mild episode of recurrent major depressive disorder (HCC) ([facility]) Primary hypertension ([facility]) Unspecified essential hypertension Obesity (BMI 30-39.9) Type 2 diabetes mellitus without complications ([facility]) documented in this encounter [facility]Evaluation note* Diagnosis Type 2 diabetes mellitus without complication, without long-term current use of insulin ([facility])- Primary Obesity (BMI 30-39.9) Hyperparathyroidism (CMS/HCC) Hyperparathyroidism, unspecified Primary hypertension ([facility]) Unspecified essential hypertension Gastroesophageal reflux disease without esophagitis Esophageal reflux Depression with anxiety Dysthymic disorder Primary hypertension ([facility])- Primary Unspecified essential hypertension Vitamin D deficiency Type 2 diabetes mellitus without complication, without long-term current use of insulin ([facility]) Hypothyroidism, unspecified type (CMS/HCC) Mixed hyperlipidemia ([facility]) Mixed hyperlipidemia Encounter for screening mammogram for malignant neoplasm of breast Hyperparathyroidism ([facility]) Hyperparathyroidism, unspecified Hyperparathyroidism, unspecified (E21.3) Hyperparathyroidism, unspecified Lateral epicondylitis of right elbow- Primary Obesity (BMI 30-39.9) Dental disease Unspecified disorder of the teeth and supporting structures Anxiety in acute stress reaction (CMS/HCC) Type 2 diabetes mellitus without complications (CMS/HCC)- Primary Mixed hyperlipidemia ([facility]/HCC) Mixed hyperlipidemia Other specified disorders of bone density and structure, unspecified site Environmental allergies Other allergy, other than to medicinal agents Other specified anxiety disorders Mild episode of recurrent major depressive disorder (HCC) ([facility]) Hypothyroidism, unspecified type (CMS/HCC) Essential (primary) hypertension ([facility]) Unspecified essential hypertension Gastroesophageal reflux disease without esophagitis Esophageal reflux Hypomagnesemia Disorders of magnesium metabolism Primary hypertension ([facility]) Unspecified essential hypertension Type 2 diabetes mellitus without complication, without long-term current use of insulin ([facility]) Dental disease Unspecified disorder of the teeth and supporting structures Anxiety in acute stress reaction ([facility]) Encounter for subsequent annual wellness visit (AWV) in Medicare patient- Primary Type 2 diabetes mellitus without complication, without long-term current use of insulin ([facility]) Hypothyroidism, unspecified type ([facility]) Mild episode of recurrent major depressive disorder (HCC) ([facility]) Primary hypertension ([facility]) Unspecified essential hypertension Obesity (BMI 30-39.9) Type 2 diabetes mellitus without complications ([facility]) Environmental allergies Other allergy, other than to medicinal agents documented in this encounter [facility] HealthcareEvaluation note* Diagnosis Type 2 diabetes mellitus without complication, without long-term current use of insulin ([facility])- Primary Obesity (BMI 30-39.9) Hyperparathyroidism ([facility]) Hyperparathyroidism, unspecified Primary hypertension ([facility]) Unspecified essential hypertension Gastroesophageal reflux disease without esophagitis Esophageal reflux Depression with anxiety Dysthymic disorder Primary hypertension ([facility])- Primary Unspecified essential hypertension Vitamin D deficiency Type 2 diabetes mellitus without complication, without long-term current use of insulin ([facility]) Hypothyroidism, unspecified type ([facility]/HCC) Mixed hyperlipidemia ([facility]) Mixed hyperlipidemia Encounter for screening mammogram for malignant neoplasm of breast Hyperparathyroidism ([facility]) Hyperparathyroidism, unspecified Hyperparathyroidism, unspecified (E21.3) Hyperparathyroidism, unspecified Lateral epicondylitis of right elbow- Primary Obesity (BMI 30-39.9) Dental disease Unspecified disorder of the teeth and supporting structures Anxiety in acute stress reaction ([facility]) Type 2 diabetes mellitus without complications ([facility]/HCC)- Primary Mixed hyperlipidemia ([facility]/HCC) Mixed hyperlipidemia Other specified disorders of bone density and structure, unspecified site Environmental allergies Other allergy, other than to medicinal agents Other specified anxiety disorders Mild episode of recurrent major depressive disorder (HCC) (CMS/HCC) Hypothyroidism, unspecified type (CMS/HCC) Essential (primary) hypertension (CMS/HCC) Unspecified essential hypertension Gastroesophageal reflux disease without esophagitis Esophageal reflux Hypomagnesemia Disorders of magnesium metabolism Primary hypertension (CMS/HCC) Unspecified essential hypertension Type 2 diabetes mellitus without complication, without long-term current use of insulin (CMS/HCC) Dental disease Unspecified disorder of the teeth and supporting structures Anxiety in acute stress reaction ([facility]) Encounter for subsequent annual wellness visit (AWV) in Medicare patient- Primary Type 2 diabetes mellitus without complication, without long-term current use of insulin ([facility]) Hypothyroidism, unspecified type (CMS/HCC) Mild episode of recurrent major depressive disorder (HCC) (CMS/HCC) Primary hypertension (CMS/HCC) Unspecified essential hypertension Obesity (BMI 30-39.9) Type 2 diabetes mellitus without complications (CMS/HCC) Other specified anxiety disorders Mild episode of recurrent major depressive disorder (HCC) (CMS/HCC) documented in this encounter [facility] HealthcareEvaluation note* Diagnosis Type 2 diabetes mellitus without complication, without long-term current use of insulin ([facility])- Primary Obesity (BMI 30-39.9) Hyperparathyroidism (CMS/HCC) Hyperparathyroidism, unspecified Primary hypertension (CMS/HCC) Unspecified essential hypertension Gastroesophageal reflux disease without esophagitis Esophageal reflux Depression with anxiety Dysthymic disorder Primary hypertension (CMS/HCC)- Primary Unspecified essential hypertension Vitamin D deficiency Type 2 diabetes mellitus without complication, without long-term current use of insulin ([facility]) Hypothyroidism, unspecified type (CMS/HCC) Mixed hyperlipidemia ([facility]) Mixed hyperlipidemia Encounter for screening mammogram for malignant neoplasm of breast Hyperparathyroidism ([facility]) Hyperparathyroidism, unspecified Hyperparathyroidism, unspecified (E21.3) Hyperparathyroidism, unspecified Lateral epicondylitis of right elbow- Primary Obesity (BMI 30-39.9) Dental disease Unspecified disorder of the teeth and supporting structures Anxiety in acute stress reaction (CMS/HCC) Type 2 diabetes mellitus without complications (CMS/HCC)- Primary Mixed hyperlipidemia (CMS/HCC) Mixed hyperlipidemia Other specified disorders of bone density and structure, unspecified site Environmental allergies Other allergy, other than to medicinal agents Other specified anxiety disorders Mild episode of recurrent major depressive disorder (HCC) (CMS/HCC) Hypothyroidism, unspecified type (CMS/HCC) Essential (primary) hypertension (CMS/HCC) Unspecified essential hypertension Gastroesophageal reflux disease without esophagitis Esophageal reflux Hypomagnesemia Disorders of magnesium metabolism Primary hypertension (CMS/HCC) Unspecified essential hypertension Type 2 diabetes mellitus without complication, without long-term current use of insulin (CMS/HCC) Dental disease Unspecified disorder of the teeth and supporting structures Anxiety in acute stress reaction (CMS/HCC) Encounter for subsequent annual wellness visit (AWV) in Medicare patient- Primary Type 2 diabetes mellitus without complication, without long-term current use of insulin (CMS/HCC) Hypothyroidism, unspecified type (CMS/HCC) Mild episode of recurrent major depressive disorder (HCC) ([facility]) Primary hypertension (CMS/HCC) Unspecified essential hypertension Obesity (BMI 30-39.9) Environmental allergies- Primary Other allergy, other than to medicinal agents documented [facility] encounter [facility] No data available for this section [facility] data available for this section [facility] Summary Purpose Family History Relationship Condition Age [...] content) DATE CREATED AUTHOR 10/24/[address] [facility] DATE CREATED AUTHOR AUTHOR'S ORGANIZ ATION 09/02/2022 [facility] DATE CREATED AUTHOR AUTHOR'S ORGANIZ ATION 09/04/2022 [facility] DATE CREATED AUTHOR AUTHOR'S ORGANIZ ATION 06/07/2023 [facility] DATE CREATED AUTHOR AUTHOR'S ORGANIZ ATION 03/30/2024 [facility] DATE CREATED AUTHOR AUTHOR'S ORGANIZ ATION 03/31/2024 [facility] EPIC Patient Care team informatio [...] September 25, 2023 End: September 25, 2023 Sales Project Engineer Relationship Specialty Start Date End Date Ángel Iverson MD [address] [place] [phone] PCP - General Family Medicine 07/07/23 Stella Nieto NP [address] [place] [phone] Nurse Practitioner Family Medicine 07/07/23 Sales Project Engineer Relationship Specialty Start Date End Date Ángel Iverson MD [address] [place] [phone] PCP - General Family Medicine 07/07/23 Stella Nieto NP [address] [place] [phone] Nurse Practitioner Family Medicine 07/07/23 Sales Project Engineer Relationship Specialty Start Date End Date Ángel Iverson MD [address] [place] [phone] PCP - General Family Medicine 07/07/23 Stella Nieto NP [address] [place] [phone] Nurse Practitioner Family Medicine 07/07/23 Sales Project Engineer Relationship Specialty Start Date End Date Ángel Iverson MD [address] [place] [phone] PCP - General Family Medicine 07/07/23 Stella Nieto NP [address] [place] [phone] Nurse Practitioner Family Medicine 07/07/23 Sales Project Engineer Relationship Specialty Start Date End Date Ángel Iverson MD [address] [place] [phone] PCP - General Family Medicine 07/07/23 Stella Nieto NP [address] [place] [phone] Nurse Practitioner Family Medicine 07/07/23 Sales Project Engineer Relationship Specialty Start Date End Date Ángel Iverson MD [address] [place] [phone] PCP - General Family Medicine 07/07/23 Stella Nieto NP [address] [place] [phone] Nurse Practitioner Family Medicine 07/07/23 Sales Project Engineer Relationship Specialty Start Date End Date Ángel Iverson MD [address] [place] [phone] PCP - General Family Medicine 07/07/23 Stella Nieto NP [address] [place] [phone] Nurse Practitioner Family Medicine 07/07/23 Sales Project Engineer Relationship Specialty Start Date End Date Ángel Iverson MD [address] [place] [phone] PCP - General Family Medicine 07/07/23 Stella Nieto NP [address] [place] [phone] Nurse Practitioner Family Medicine 07/07/23 Sales Project Engineer Relationship Specialty Start Date End Date Ángel Iverson MD [address] [place] [phone] PCP - General Family Medicine 07/07/23 Stella Nieto NP [address] [place] [phone] Nurse Practitioner Family Medicine 07/07/23 Sales Project Engineer Relationship Specialty Start Date End Date Ángel Iverson MD [address] [place] [phone] PCP - General Family Medicine 07/07/23 Stella Nieto NP [address] [place] [phone] Nurse Practitioner Family Medicine 07/07/23 Sales Project Engineer Relationship Specialty Start Date End Date Ángel Iverson MD [address] [place] [phone] PCP - General Family Medicine 07/07/23 Stella Nieto NP [address] [place] [phone] Nurse Practitioner Family Medicine 07/07/23 Sales Project Engineer Relationship Specialty Start Date End Date Ángel Iverson MD [address] [place] [phone] PCP - General Family Medicine 07/07/23 Stella Nieto NP [address] [place] [phone] Nurse Practitioner Family Medicine 07/07/23 Sales Project Engineer Relationship Specialty Start Date End Date Ángel Iverson MD [address] [place] [phone] PCP - General Family Medicine 07/07/23 Stella Nieto NP [address] [place] [phone] Nurse Practitioner Family Medicine 07/07/23 Goals (unrecognized section and content) Goals may be documented in a n alternate section Reason for Visit (unrecogniz ed section and content) Reason Onset Date Comments Med Refill 03/02/2024 Reason Comments Med Refill Reason Comments Thyroid Problem Follow-up LAB FOR RECORDS PERTAINING TO PATIENTS WHO ARE [...] BE BASED ON THE PRIMARY CLINICAL RECORDS. [employer] [facility] provides no warranty or guarantee of the accuracy or completeness of information in this document.
== END 2024-07-07 12:52 | disposition home or self-care (01) ==
LOC: LAB 12:52
PROVIDERS: PCP Nurse Practitioner; Visit Provider Nurse Practitioner
DX: M53.3 Sacrococcygeal disorders, not elsewhere classified (principal)
CPT/HCPCS: 72220

== ENCOUNTER 2024-07-13 08:36 | Outpatient (OUT) | payer MEDICARE, SELFPAY ==
--- NOTE | 2024-07-13 08:43 | MM_ITS ---
Patient Name: KEE MANUEL MR#: [id number] : 1955 Exam Date: 07/13/2024 Ordering Doctor: ARLEEN Nieto CNP RADIOLOGY REPORT PROCEDURE: MM TOMOSYNTHESIS SCREENING BI COMPARISON: MM TOMOSYNTHESIS SCREENING BI, 07/10/2023. MG MAMM SCREEN 3D VEDA CAD, 07/04/2022. MG MAMM SCREEN 3D VEDA CAD, 07/02/2021. MAMMO VEDA SCREEN, 01/13/2012. INDICATIONS: Screening Calculator Name NCI Breast Cancer Risk Assessment Tool 5 Year Breast Cancer Risk 2.10% Lifetime Breast Cancer Risk 6.10% Personal Breast Cancer No Personal Ovarian Cancer No Treatments None Family Cancers Daughter with endometrial cancer at age 36; Grandfather-maternal with pancreatic cancer at age ~65. LOCATION: [facility] BREAST COMPOSITION: The breasts are almost entirely fatty. FINDINGS: DIAGNOSTIC CATEGORY 1--NEGATIVE. Scattered benign-appearing calcifications are present. No significant change has occurred. RECOMMENDATIONS: ROUTINE MAMMOGRAM AND CLINICAL EVALUATION IN 12 MONTHS. Dictated by: Lacho Teixeira DO on 07/13/2024 at 13:11 Approved by: Lacho Teixeira DO on 07/13/2024 at 13:17
== END 2024-07-13 08:37 | disposition home or self-care (01) ==
LOC: MAMMO 08:36
PROVIDERS: PCP Nurse Practitioner; Visit Provider Nurse Practitioner
DX: Z12.31 Encounter for screening mammogram for malignant neoplasm of breast (principal); Z80.8 Family history of malignant neoplasm of other organs or systems
CPT/HCPCS: 77063; 77067

== ENCOUNTER 2024-07-13 09:12 | Outpatient (OUT) | payer MEDICARE, SELFPAY ==
--- OUTSIDE RECORDS SUMMARY | 2024-07-13 09:26 | XMS_ITS | CCD ---
Author Organization [facility] Care Team Providers Care Computer Network Engineer Name Role Phone PHYSICIAN, DEFAULT Unavailable Unavailable PHYSICIAN, DEFAULT Unavailable Unavailable PHYSICIAN, DEFAULT Unavailable Unavailable PHYSICIAN, DEFAULT Unavailable Unavailable STELLA NIETO Primary Care Physician AICNURYSZ, 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 STELLA Attending Unavailable AICHHOLZ, 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 STELLA Primary Care Unavailable AICHHOLZ, 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 STELLA Admitting Unavailable AICHHOLZ, 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 STELLA Consulting Unavailable AICHHOLZ, 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 STELLA Admitting Unavailable AICHHOLZ, 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 STELLA Attending Unavailable AICHHOLZ, 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 STELLA Primary Care Unavailable AICHHOLZ, 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 STELLA Consulting Unavailable DR GEORGINA HATCH Consulting Unavailable AICHHOLZ, 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 STELLA Attending Unavailable AICHHOLZ, 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 STELLA Primary Care Unavailable AICHHOLZ, 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 STELLA Admitting Unavailable AICHHOLZ, 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 STELLA Consulting Unavailable AICHHOLZ, 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 STELLA Attending Unavailable AICHHOLZ, 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 STELLA Primary Care Unavailable AICHHOLZ, 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 STELLA Referring Unavailable AICHHOLZ, 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 STELLA Admitting Unavailable AICHHOLZ, 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 STELLA Consulting Unavailable DR LIZY MEADE V Consulting Unavailable AICHHOLZ, 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 STELLA Primary Care Unavailable AICHHOLZ, 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 STELLA Attending Unavailable AICHHOLZ, 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 STELLA Admitting Unavailable AICHHOLZ, 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 STELLA Consulting Unavailable AICHHOLZ, 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 STELLA Consulting Unavailable AICHHOLZ, 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 STELLA Primary Care Unavailable AICHHOLZ, 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 STELLA Attending Unavailable AICHHOLZ, 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 STELLA Admitting Unavailable AICHHOLZ, 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 STELAL Consulting Unavailable AICHHOLZ, 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 STELLA Primary Care Unavailable AICHHOLZ, 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 STELLA Attending Unavailable AICHHOLZ, 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 STELLA Admitting Unavailable AICHHOLZ, 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 STELLA Consulting Unavailable AICHHOLZ, 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 STELLA Admitting Unavailable AICHHOLZ, 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 STELLA Primary Care Unavailable AICHHOLZ, 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 STELLA Attending Unavailable AICHHOLZ, 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 STELLA Consulting Unavailable AICHHOLZ, 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 STELLA Primary Care Unavailable AICHHOLZ, 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 STELLA Attending Unavailable AICHHOLZ, 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 STELLA Admitting Unavailable Melchor, Faye A Attending Unavailable Melchor, Faye A Attending Unavailable SALAM, Dias Referring Unavailable SALAM, Dias Attending Unavailable SALAM, Dias Attending Unavailable SALAM, Dias Admitting Unavailable Aichholz, Stella J Primary Care Provider MD Jean Quick Attending Provider JEAN QUICK Referring Unavailable MONICA NIETOA J Primary Care Unavailable Monica Nietoa J Primary Care Provider MD Jean Quick Attending Provider [phone] Ángel Iverson MD Primary Care Provider Aicamanda CUSTOMER STRATEGY MANAGER, Stella Unavailable Jean Quick Attending Unavailable Jean Quick Admitting Unavailable Aicamanda Stella J Primary Care Unavailable Gerson, Stella J Primary Care Unavailable Debora, Ahmad Attending Unavailable Debora, Ahmad Admitting Unavailable AICHHOLZ, STELLA Attending Unavailable AICHHOLZ, STELLA Attending Unavailable AICHHOLZ, STELLA Attending Unavailable AICHHOLZ, STELLA Attending Unavailable JEAN QUICK F Attending Unavailable KITA QUICKMAD F Referring Unavailable Allergies Allergy Classification Reported Allergen(s) Allergy Type Date of Onset Reaction(s) Facility (19 sources) Penicillins; Translations: [penicillins] Drug allergy 09-18-2013 [facility] Medications Current Medications Medication Drug Class(es) [...] Acid 7540 MG / POLYETHYLENE GLYCOL 3350 92948 MG / Potassium Chloride 1200 MG / Sodium Ascorbate 44212 MG / Sodium Chloride 3200 MG Powder for Oral Solution) / 1 (POLYETHYLENE GLYCOL 3350 668502 MG / Potassium Chloride 1000 MG / [...] hours prior to procedure. Must have a wagon driver for this 2 tablet 01/28/2024 Active [...] Magnesium [Mass/Vol] 1.8 mg/dL Low 1.9-2.7 [facility] Comment on above: Performed By: #### P TH, RENAL, [id number], MG #### [address] Parathyroid Hormone Intacton 03-22-2024 Parathyroid Hormone Intact 67.5 pg/mL Normal [facility] Comment on above: Result Comment: PERF ORMED BY: [facility] [address] [place] [address] PATHOLOGIST UNDERWRITING ASSISTANT KIRSTIN GUZMAN M.D. Performed By: #### P TH, RENAL, [id number], MG #### [address] Renal Function Panelon 03-22 Albumin [Mass/Vol] 4.0 g/dL Normal 3.5-5.7 [facility] Comment on above: Performed By: #### P TH, RENAL, [id number], MG #### [address] Anion gap [Moles/Vol] 12.1 mmol/L Normal 6.0-15.[address] [facility] Comment on above: Performed By: #### P TH, RENAL, [id number], MG #### [address] Calcium [Mass/Vol] 10.3 mg/dL Normal 8.6-10.3 [facility] Comment on above: Performed By: #### P TH, RENAL, [id number], MG #### [address] Chloride [Moles/Vol] 101 mmol/L Normal 98-107 [facility] Comment on above: Performed By: #### P TH, RENAL, [id number], MG #### [address] CO2 [Moles/Vol] 30.6 mmol/L Normal 21.0-31.0 [facility] Comment on above: Performed By: #### P TH, RENAL, [id number], MG #### [address] Creatinine [Mass/Vol] 0.76 mg/dL Normal 0.60-1.20 [facility] Comment on above: Performed By: #### P TH, RENAL, [id number], MG #### [place] [address] [place] GFR/1.73 sq M.predicted MDRD (S/P/Bld) [Vol rate/Area] mL/min/{1.73_m2} Normal [facility] Comment on above: Performed By: #### P TH, RENAL, [id number], MG #### [facility] [address] [place] [address] [place] Glucose [Mass/Vol] 108 mg/dL High 70-100 [facility] Comment on above: Result Comment: [place] Glucose Reference Range is dependent on time and content of last meal. Glucose of more than 200 mg/dL in a nonstressed, ambulatory subject supports the diagnosis of Diabetes Mellitus. ADA recommended reference range Performed By: #### P TH, RENAL, [id number], MG #### [facility] [address] [place] [address] [facility] Phosphate [Mass/Vol] 3.7 mg/dL Normal 2.5-4.5 [facility] Comment on above: Performed By: #### P TH, RENAL, [id number], MG #### [facility] [address] [place] [address] [place] Potassium [Moles/Vol] 4.7 mmol/L Normal 3.5-5.1 [facility] Comment on above: Performed By: #### P TH, RENAL, [id number], MG #### [facility] [address] [place] [address] [place] Sodium [Moles/Vol] 139 mmol/L Normal 136-145 [facility] Comment on above: Performed By: #### P TH, RENAL, [id number], MG #### [facility] [address] [place] [address] [place] Urea nitrogen [Mass/Vol] 13 mg/dL Normal 7-25 [facility] Comment on above: Performed By: #### P TH, RENAL, [id number], MG #### [facility] [address] [place] [address] [place] Vitamin D 25 Hydroxy Totalon 03-22-2024 Vitamin D 25 Hydroxy Total 34.5 ng/mL Normal 30-100 [facility] Comment on above: Result Comment: JUAN PABLO MIN D STATUS 25(OH)VITAMIN D RANGE (ng/mL) Deficient <20 Insufficient 20 to <30 Sufficient 30 to 100 Reference: Verito MF,Magali GRIJALVA, Yumiko SCHWARZ, et al. Evaluation,treatment, and prevention of vitamin D deficiency; an Endocrine Society clinical practice guideline. JCEM. 2010; 96(7):1911-30. PERFORMED BY: [place] [address] PATHOLOGIST UNDERWRITING ASSISTANT KIRSTIN GUZMAN M.D. Performed By: #### P TH, RENAL, [id number], MG #### [facility] [address] [place] [address] MLR HEMOGLOBIN A1Con 024 Glucose [Mass/Vol] 123 mg/dL [facility] HbA1c (Bld) [Mass fraction] 5.9 % 4.5 - 6.2 % [facility] Comment on above: ADA RECOMMENDED LIMI T 4.0 - 6.0 ADA THERAPEUTIC TARGET < 7.0 ACTION SUGGESTED > 7.0 [facility] Albumin [Mass/volume] in Ser um or Plasma by Bromocresol green (BCG) dye binding methoOrdered By: Jean Quick on 09-25-2023 Albumin BCG dye [Mass/Vol] 4.2 g/dL 3.5-5.7 [facility] Calcium [Mass/volume] in Ser um or PlasmaOrdered By: Jean uQick on 09-25-2023 Calcium [Mass/Vol] 10.3 mg/dL Normal 8.6-10.3 [facility] Comment on above: Performed By: #### V [id number], MG, PTH, RENAL #### [facility] [address] [place] [address] Carbon dioxide, total [Moles /volume] in Serum or PlasmaOrdered By: Jean Quick on 09-25-2023 CO2 [Moles/Vol] 29.4 mmol/L Normal 21.0-31.0 [facility] Comment on above: Performed By: #### V [id number], MG, PTH, RENAL #### [facility] [address] Chloride [Moles/volume] in S rosalind or PlasmaOrdered By: Jean Quick on 09-25-2023 Chloride [Moles/Vol] 103 mmol/L Normal 98-107 [facility] Comment on above: Performed By: #### V [id number], MG, PTH, RENAL #### [facility] [address] Creatinine [Mass/volume] in Serum or PlasmaOrdered By: Jean Quick on 09-25-2023 Creatinine [Mass/Vol] 0.75 mg/dL Normal 0.60-1.20 [facility] Comment on above: Performed By: #### V [id number], MG, PTH, RENAL #### [facility] [address] Glucose [Mass/volume] in Ser um or PlasmaOrdered By: Jean Quick on 09-25-2023 Glucose [Mass/Vol] 108 mg/dL High 70-100 [facility] Comment on above: ADA recommended refe rence rangeRandom Glucose Reference Range is dependent on time and content of last meal. Glucose of more than 200 mg/dL in a nonstressed, ambulatory subject supports the diagnosis of Diabetes Mellitus. Result Comment: [place] om Glucose Reference Range is dependent on time and content of last meal. Glucose of more than 200 mg/dL in a nonstressed, ambulatory subject supports the diagnosis of Diabetes Mellitus. ADA recommended reference range Performed By: #### V [id number], MG, PTH, RENAL #### [facility] [address] [place] [id number] [facility] Magnesium [Mass/volume] in S rosalind or PlasmaOrdered By: Jean Quick on 09-25-2023 Magnesium [Mass/Vol] 1.8 mg/dL Low 1.9-2.7 [facility] Comment on above: Performed By: #### V [id number], MG, PTH, RENAL #### [facility] [address] No Panel InformationOrdered By: Jean Quick on 09-25-2023 Estimated GFR (CKD-EPI) > 60.0 mL/Min [facility] Creatinine Clearance (Chem N/A [facility] Parathyrin.intact [Mass/volu me] in Serum or PlasmaOrdered By: Jean Quick on 09-25-2023 Parathyrin.intact [Mass/Vol] 74.4 pg/mL [facility] Parathyroid Hormone Intacton 09-25-2023 Parathyroid Hormone Intact 74.4 pg/mL Normal [facility] Comment on above: Result Comment: PERF ORMED BY: [place] [address] PATHOLOGIST UNDERWRITING ASSISTANT EZEQUIEL FIGUEREDO M.D. Performed By: #### V [id number], MG, PTH, RENAL #### [address] Phosphate [Mass/volume] in S rosalind or PlasmaOrdered By: Jean Quick on 09-25-2023 Phosphate [Mass/Vol] 3.3 mg/dL Normal 2.5-4.5 [facility] Comment on above: Performed By: #### V [id number], MG, PTH, RENAL #### [address] Potassium [Moles/volume] in Serum or PlasmaOrdered By: Jean Quick on 09-25-2023 Potassium [Moles/Vol] 4.3 mmol/L Normal 3.5-5.1 [facility] Comment on above: Performed By: #### V [id number], MG, PTH, RENAL #### [facility] [address] [place] [address] Renal Function Panelon 09-24 Albumin [Mass/Vol] 4.2 g/dL Normal 3.5-5.7 [facility] Comment on above: Performed By: #### V [id number], MG, PTH, RENAL #### [place] [address] [place] GFR/1.73 sq M.predicted MDRD (S/P/Bld) [Vol rate/Area] mL/min/{1.73_m2} Normal [facility] Comment on above: Performed By: #### V [id number], MG, PTH, RENAL #### [address] [address] [place] Serum or plasma anion gap de terminationOrdered By: Jean Quick on 09-25-2023 Anion gap [Moles/Vol] 11.9 mmol/L Normal 6.0-15.0 [facility] Comment on above: Performed By: #### V [id number], MG, PTH, RENAL #### [facility] [address] [place] [address] [place] Sodium [Moles/volume] in Ser um or PlasmaOrdered By: Jean Quick on 09-25-2023 Sodium [Moles/Vol] 140 mmol/L Normal 136-145 [facility] Comment on above: Performed By: #### V [id number], MG, PTH, RENAL #### [facility] [address] [place] [address] Urea nitrogen [Mass/volume] in Serum or PlasmaOrdered By: Jean Quick on 09-25-2023 Urea nitrogen [Mass/Vol] 11 mg/dL Normal 7-25 [facility] Comment on above: Performed By: #### V [id number], MG, PTH, RENAL #### [facility] [address] [place] [address] Vitamin D 25 Hydroxy Totalon 09-25-2023 Vitamin D 25 Hydroxy Total 36.4 ng/mL Normal 30-100 [facility] Comment on above: Result Comment: JUAN PABLO MIN D STATUS 25(OH)VITAMIN D RANGE (ng/mL) Deficient <20 Insufficient 20 to <30 Sufficient 30 to 100 Reference: Verito MF,Magali NC, Yumiko SCHWARZ, et al. Evaluation,treatment, and prevention of vitamin D deficiency; an Endocrine Society clinical practice guideline. JCEM. 2010; 96(7):1911-30. PERFORMED BY: [place] [address] PATHOLOGIST UNDERWRITING ASSISTANT EZEQUIEL FIGUEREDO M.D. Performed By: #### V [id number], MG, PTH, RENAL #### [facility] [address] [place] [address] Vitamin D+Metabolites [Mass/ volume] in Serum or PlasmaOrdered By: Jean Quick on 09-25-2023 Vitamin D+Metabolites [Mass/Vol] 36.4 ng/mL 30-100 [facility] Comment on above: VITAMIN D STATUS 25( [place])VITAMIN D RANGE (ng/mL) Deficient <20 Insufficient 20 to <30Sufficient 30 to 100Reference: Verito MF,Magali NC, Yumiko SCHWARZ, et al. Evaluation,treatment, and prevention of vitamin D deficiency; an Endocrine Society clinical practice guideline. JCEM. 2010; 96(7):1911-30. CALCIUMon 06-05-2023 Calcium [Mass/Vol] 10.3 mg/dL Normal 8.5-10.5 [facility] Comment on above: Performed By: #### 1 7861-6, 72876-5, 2731-8, 71359-9 #### [facility] ([id number]) [address], [address] [place] [address] MAGNESIUMon 06-05-2023 Magnesium [Mass/Vol] 1.7 mg/dL Low 1.8-2.6 [facility] Comment on above: Performed By: #### 1 7861-6, 30417-9, 2730-8, 23963-0 #### [facility] ([id number]) [address], [address] [place] [address] Parathyrin.intact [Mass/Vol] on 06-05-2023 PTH INTACT 71 pg/mL Normal 12-88 [facility] Comment on above: Performed By: #### 1 7861-6, 79714-5, 2731-8, 60521-5 #### [facility] ([id number]) [address], [address] [place] [address] RENAL PANELon 06-05-2023 Albumin [Mass/Vol] 4.3 g/dL Normal 3.2-5.3 [facility] Comment on above: Performed By: #### R ENAL #### [facility] ([id number]) [address], [address] [place] [address] Anion gap [Moles/Vol] 8 mmol/L Normal 5-[address] [facility] Comment on above: Performed By: #### R ENAL #### [facility] ([id number]) [address], [address] [place] [address] Calcium [Mass/Vol] 10.6 mg/dL High 8.5-10.5 [facility] Comment on above: Performed By: #### R ENAL #### [facility] ([id number]) [address], [address] [place] [address] Chloride [Moles/Vol] 98 mmol/L Normal 98-109 [facility] Comment on above: Performed By: #### R ENAL #### [facility] ([id number]) [address] [place] [address] CO2 [Moles/Vol] 31 mmol/L Normal 22-32 [facility] Comment on above: Performed By: #### R ENAL #### [facility] ([id number]) [address] [address] [place] [address] Creatinine [Mass/Vol] 0.82 mg/dL Normal 0.40-1.[address] [facility] Comment on above: Result Comment: METH OD TRACEABLE TO IDMS STANDARD Performed By: #### R ENAL #### [facility] ([id number]) [address], [address] [place] [address] GFR/1.73 sq M.predicted among non-blacks MDRD (S/P/Bld) [Vol rate/Area] 77 mL/min/{1.73_m2} Normal >59 [facility] Comment on above: Result Comment: Reported eGFR is based on the CKD-EPI 2020 equation that does not use a race coefficient. Performed By: #### R ENAL #### [facility] ([id number]) [address] [place] [address] Glucose [Mass/Vol] 156 mg/dL High 65-99 [facility] Comment on above: Performed By: #### R ENAL #### [facility] ([id number]) [address] [place] [address] Phosphate [Mass/Vol] 3.2 mg/dL Normal 2.4-4.9 [facility] Comment on above: Performed By: #### R ENAL #### [facility] ([id number]) [address] [place] [address] Potassium [Moles/Vol] 4.2 mmol/L Normal 3.5-5.[address] [facility] Comment on above: Performed By: #### R ENAL #### [facility] ([id number]) [address] [place] [address] Sodium [Moles/Vol] 137 mmol/L Normal 134-146 [facility] Comment on above: Performed By: #### R ENAL #### [facility] ([id number]) [address] [place] [address] Urea nitrogen [Mass/Vol] 11 mg/dL Normal 5-27 [facility] Comment on above: Performed By: #### R ENAL #### [facility] ([id number]) [address] [place] [address] Vitamin D+Metabolites [Mass/ Vol]on 06-05-2023 VITAMIN D 25 HYD TOT 36.7 ng/mL Normal 30-100 [facility] Comment on above: Result Comment: Vitamin D status 25 [place] Vitamin D Deficiency <20 ng/mL Insufficiency 20-29 ng/mL Sufficiency 30-100 ng/mL Toxicity >100 ng/mL NOTE: A pediatric reference range has not been established by the clinical care coordinator of this kit. The [place] [employer] recommends a Vitamin D level of = or >20ng/mL in infants and children. Performed By: #### 1 7861-6, 79171-2, 2731-8, 57582-1 #### [facility] ([id number]) [address] [place] [address] Albumin [Mass/volume] in Ser um or Plasma by Bromocresol green (BCG) dye binding methoOrdered By: Jean Quick on 03-26-2023 Albumin BCG dye [Mass/Vol] 4.3 g/dL 3.5-5.7 [facility] Calcium [Mass/volume] in Ser um or PlasmaOrdered By: Jean Quick on 03-26-2023 Calcium [Mass/Vol] 10.5 mg/dL 8.6-10.3 [facility] Carbon dioxide, total [Moles /volume] in Serum or PlasmaOrdered By: Jean Quick on 03-26-2023 CO2 [Moles/Vol] 29.4 mmol/L 21.0-31.0 [facility] Chloride [Moles/volume] in S rosalind or PlasmaOrdered By: Jean Quick on 03-26-2023 Chloride [Moles/Vol] 104 mmol/L 98-107 [facility] Creatinine [Mass/volume] in Serum or PlasmaOrdered By: Jean Quick on 03-26-2023 Creatinine [Mass/Vol] 0.79 mg/dL 0.60-1.20 [facility] Glucose [Mass/volume] in Ser um or PlasmaOrdered By: Jean Quick on 03-26-2023 Glucose [Mass/Vol] 136 mg/dL 70-100 [facility] Comment on above: ADA recommended refe rence rangeRandom Glucose Reference Range is dependent on time and content of last meal. Glucose of more than 200 mg/dL in a nonstressed, ambulatory subject supports the diagnosis of Diabetes Mellitus. Magnesium [Mass/volume] in S rosalind or PlasmaOrdered By: Jean Quick on 03-26-2023 Magnesium [Mass/Vol] 1.6 mg/dL 1.9-2.7 [facility] No Panel InformationOrdered By: Jean Quick on 03-26-2023 Estimated GFR (CKD-EPI) > 60.0 mL/Min [facility] Creatinine Clearance (Chem N/A [facility] Parathyrin.intact [Mass/volu me] in Serum or PlasmaOrdered By: Jean Quick on 03-26-2023 Parathyrin.intact [Mass/Vol] 105.1 pg/mL [facility] Phosphate [Mass/volume] in S rosalind or PlasmaOrdered By: Jean Quick on 03-26-2023 Phosphate [Mass/Vol] 3.1 mg/dL 2.5-4.5 [facility] Potassium [Moles/volume] in Serum or PlasmaOrdered By: Jean Quick on 03-26-2023 Potassium [Moles/Vol] 4.8 mmol/L 3.5-5.1 [facility] Serum or plasma anion gap de terminationOrdered By: Jean Quick on 03-26-2023 Anion gap [Moles/Vol] 11.4 mmol/L 6.0-15.0 [facility] Sodium [Moles/volume] in Ser um or PlasmaOrdered By: Jean Quick on 03-26-2023 Sodium [Moles/Vol] 140 mmol/L 136-145 [facility] Urea nitrogen [Mass/volume] in Serum or PlasmaOrdered By: Jean Quick on 03-26-2023 Urea nitrogen [Mass/Vol] 8 mg/dL 7-25 [facility] Vitamin D+Metabolites [Mass/ volume] in Serum or PlasmaOrdered By: Jean Quick on 03-26-2023 Vitamin D+Metabolites [Mass/Vol] 38.1 ng/mL 30-100 [facility] Comment on above: VITAMIN D STATUS [...] 6 years(2029) due to tubular adenoma Normal [facility] XR DEXA BONE DENSITYon 09-02 XR [...] by: GEORGINA HATCH Date: 2022-09-02 13:17 Normal [facility] Outside Colonoscopyon 2022 Outside Colonoscopy [id number]:127 Normal [facility] Physician Orderon 08-27-2022 Physician Order [id number]:127 Normal [facility] CULTURE URINEon 08-12-2022 CULTURE URINE Culture Observations: NO GROWTH. Normal [facility] Comment on above: Performed By: #### T , FT3 #### [facility] [address] [place] [address] Dr. Herve Machado UA RANDOM W/MICROSCOPICon BACTERIA NONE SEEN Normal NONE SEEN [facility] Comment on above: Performed By: #### T SH, FT3 #### [facility] [address] [place] [address] Dr. Herve Machado Bilirubin Ql (U) Negative Normal NEGATIVE [facility] Comment on above: Performed By: #### T SH, FT3 #### [facility] [address] [place] [address] Dr. Herve Machado CAST NONE SEEN Normal NONE SEEN [facility] Comment on above: Performed By: #### T SH, FT3 #### [facility] [address] [place] [address] Dr. Herve Machado Clarity (U) CLEAR Normal CLEAR [facility] Comment on above: Performed By: #### T SH, FT3 #### [facility] [address] [place] [address] Dr. Herve Machado Color (U) LT. YELLOW Normal YELLOW [facility] Comment on above: Performed By: #### T , FT3 #### [facility] [address] [place] [address] Dr. Herve Machado Crystals LM Nom (Urine sed) NONE SEEN Normal NONE SEEN [facility] Comment on above: Performed By: #### T SH, FT3 #### [facility] [address] [place] [address] Dr. Herve Machado Epithelial cells LM Ql (Urine sed) RARE Normal NONE SEEN /RARE [facility] Comment on above: Performed By: #### T , FT3 #### [facility] [address] [place] [address] Dr. Herve Machado Glucose Ql (U) 500 mg/dl Abnormal NEGATIVE [facility] Comment on above: Performed By: #### T SH, FT3 #### [facility] [address] [place] [address] Dr. Herve Machado Hemoglobin Ql (U) Negative Normal NEGATIVE [facility] Comment on above: Performed By: #### T SH, FT3 #### [facility] [address] [place] [address] Dr. Herve Machado Ketones Ql (U) Negative Normal NEGATIVE [facility] [place] Comment on above: Performed By: #### T , FT3 #### [facility] [address] [place] [address] Dr. Herve Machado LEUKOCYTES Negative Normal NEGATIVE [facility] Comment on above: Performed By: #### T , FT3 #### [facility] [address] [place] [address] Dr. Herve Machado MUCOUS NONE SEEN Normal NONE SEEN [facility] Comment on above: Performed By: #### T , FT3 #### [facility] [address] [place] [address] Dr. Herve Machado Nitrite Ql (U) Negative Normal NEGATIVE [facility] [place] Comment on above: Performed By: #### T , FT3 #### [facility] [address] [place] [address] Dr. Herve Machado pH (U) 5.0 [pH] Normal 5-9 [facility] Comment on above: Performed By: #### T , FT3 #### [facility] [address] [place] [address] Dr. Herve Machado RBC 0-2 Normal 0-2 [facility] Comment on above: Performed By: #### T , FT3 #### [facility] [address] [place] [address] Dr. Herve Machado SPEC GRAVITY 1.020 Normal 1.005-<=1.025 [facility] Comment on above: Performed By: #### T , FT3 #### [facility] [address] [place] [address] Dr. Herve Machado UA PROTEIN Negative Normal NEGATIVE/ TRACE [facility] Comment on above: Performed By: #### T , FT3 #### [facility] [address] [place] [address] Dr. Herve Machado Urobilinogen Qn (U) 0.2 {Connie'U}/dL Normal 0.2 - 1. 0 [facility] Comment on above: Performed By: #### T SH, FT3 #### [facility] [address] [place], [place] [address] Dr. Herve Machado WBC NONE SEEN Normal NONE SEEN [facility] Comment on above: Performed By: #### T SH, FT3 #### [facility] [address] [place], [place] [address] Dr. Herve Machado Consent for Procedure/Surger yon 08-05-2022 Consent for Procedure/Surgery [id number] Normal [facility] Ambulatory Visit Summaryon 0 08-02-2022 Ambulatory [...] See instructions Prior to colonoscopy. Pickup at [facility]113 Unchanged alendronate (alendronate 35 mg oral tablet) [...] physician if questions or concerns Pharmacy Information [facility] 1429: [address] [place], [place] [id number] [phone] Allergies penicillins (unknown) Problems Ongoing - Any [...] including vitamins, herbs, eye drops, creams, and ewpi-krk-vklfcqh medicines. ? Any problems you or family [...] anything starting (more content not included)... Normal [facility] Gastroenterology Office/Clin ic Noteon 08-02-2022 Gastroenterology [...] in 2013 she had previous colonoscopy in [place], [place] that showed polyps- no record to [...] 1 EA, Refill(s) 0, Prior to colonoscopy., [facility], 139.7, cm, 08/02/22 10:20:00 [...] 08/02/2022 Immunizations Vaccine Date Status SARS-CoV-2 (COVID-19) mRNAMUL.[id number] 04/23/2022 Recorded SARSCoV2 mRNA(tozinamer-tri s-sucros) vac 07/30/2021 [...] [facility] [place] Comment on above: Result Comment: Elec tronically [...] including vitamins, herbs, eye drops, creams, and wcvx-lxs-figppfc medicines. ? Any problems you or family [...] air t (more content not included)... Normal [facility] Provider Letteron 07-16-2022 Provider Letter July 16, [address] [place] [address] EMILY ADORNO 1955 Dear Emily, We have [...] your prompt attention to this matter. Sincerely, [facility] [place]. Normal [facility] CBC AUTO DIFFon 07-15-2022 BASO # 0.0 103/ul Normal 0.0-0.1 [facility] Comment on above: Performed By: #### C BC #### [facility] [address] [place] [address] Dr. Herve Machado Basophils/100 WBC (Bld) 0.4 % Normal 0.2-2.0 [facility] Comment on above: Performed By: #### C BC #### [facility] [address] [place] [address] Dr. Herve Machado EO # 0.2 103/ul Normal 0.0-0.7 [facility] Comment on above: Performed By: #### C BC #### [facility] [address] [place] [address] Dr. Herve Machado Eosinophils/100 WBC (Bld) 2.7 % Normal 0.9-7.0 [facility] Comment on above: Performed By: #### C BC #### [facility] [address] [place] [address] Dr. Herve Machado Erythrocyte distribution width (RBC) [Ratio] 12.3 % Normal 11.0-15.0 [facility] Comment on above: Performed By: #### C BC #### [facility] [address] [place] [address] Dr. Herve Machado Hematocrit (Bld) [Volume fraction] 43.8 % Normal 36.0-48.0 [facility] Comment on above: Performed By: #### C BC #### [facility] [address] [place] [address] Dr. Herve Machado Hemoglobin (Bld) [Mass/Vol] 14.1 g/dL Normal 12.0-16.0 [facility] Comment on above: Performed By: #### C BC #### [facility] [address] [place] [address] Dr. Herve Machado IG # 0.01 10e3/ul Normal 0.00-0.03 [facility] Comment on above: Performed By: #### C BC #### [facility] [address] [place] [address] Dr. Herve Machado IG % 0.1 % Normal 0.0-0.5 [facility] Comment on above: Performed By: #### C BC #### [facility] [address] [place] [address] Dr. Herve Machado LYMPH # 1.7 103/ul Normal 1.2-3.8 [facility] Comment on above: Performed By: #### C BC #### [facility] [address] [place] [address] Dr. Herve Machado Lymphocytes/100 WBC (Bld) 23.6 % Normal 20.5-60.0 [facility] Comment on above: Performed By: #### C BC #### [facility] [address] [place] [address] Dr. Herve Machado MANUAL DIFF REQ NO Normal [facility] Comment on above: Performed By: #### C BC #### [facility] [address] [place] [address] Dr. Herve Machado MCH (RBC) [Entitic mass] 31.1 pg Normal 26.7-34.0 [facility] Comment on above: Performed By: #### C BC #### [facility] [address] [place] [address] Dr. Herve Machado MCHC (RBC) [Mass/Vol] 32.2 g/dL Normal 29.9-35.2 [facility] Comment on above: Performed By: #### C BC #### [facility] [address] [place] [address] Dr. Herve Machado MCV (RBC) [Entitic vol] 96.5 fL Normal 81.0-99.0 [facility] Comment on above: Performed By: #### C BC #### [facility] [address] [place] [address] Dr. Herve Machado MONO # 0.4 103/ul Normal 0.3-0.8 [facility] Comment on above: Performed By: #### C BC #### [facility] [address] [place] [address] Dr. Herve Machado Monocytes/100 WBC (Bld) 5.8 % Normal 1.7-12.0 [facility] Comment on above: Performed By: #### C BC #### [facility] [address] [place] [address] Dr. Herve Machado NEUT # 4.9 103/ul Normal 1.4-6.5 [facility] Comment on above: Performed By: #### C BC #### [facility] [address] [place] [address] Dr. Herve Machado Neutrophils/100 WBC (Bld) 67.4 % Normal 43.0-75.0 [facility] Comment on above: Performed By: #### C BC #### [facility] [address] [place] [address] Dr. Herve Machado Platelet mean volume (Bld) [Entitic vol] 9.9 fL Normal 9.5-13.5 [facility] Comment on above: Performed By: #### C BC #### [facility] [address] [place] [address] Dr. Herve Machado PLT 229 103/ul Normal 150-450 [facility] Comment on above: Performed By: #### C BC #### [facility] [address] [place] [address] Dr. Herve Machado RBC 4.54 106/ul Normal 4.20-5.40 [facility] Comment on above: Performed By: #### C BC #### [facility] [address] [place] [address] Dr. Herve Machado WBC 7.3 103/ul Normal 4.0-11.0 [facility] Comment on above: Performed By: #### C BC #### [facility] [address] [place] [address] Dr. Herve Machado GLYCOHEMOGLOBIN A1Con 2022 ADA RECOMMENDATION SEE BELOW Normal [facility] Comment on above: Result Comment: ADA RECOMMENDED LIMIT 4.0 - 6.0 ADA THERAPEUTIC TARGET < 7.0 ACTION SUGGESTED > 7.0 Performed By: #### T SH, FT3 #### [facility] [address] [place] [address] Dr. Herve Machado Glucose [Mass/Vol] 160 mg/dL Normal [facility] Comment on above: Performed By: #### T SH, FT3 #### [facility] [address] [place] [address] Dr. Herve Machado HbA1c (Bld) [Mass fraction] 7.2 % Critically high 4.5-6.2 [facility] Comment on above: Performed By: #### T SH, FT3 #### [facility] [address] [place] [address] Dr. Herve Machado LIPID PROFILEon 07-15-2022 CHOL-HDL RATIO NORM SEE BELOW Normal [facility] Comment on above: Result Comment: 3.3 - 4.4 LOW RISK 4.4 - 7.1 AVERAGE RISK 7.1 - 11.0 MODERATE RISK >11.0 HIGH RISK Performed By: #### T SH, FT3 #### [facility] [address] [place] [address] Dr. Herve Machado Cholesterol [Mass/Vol] 136 mg/dL Normal <=200 [facility] Comment on above: Performed By: #### T SH, FT3 #### [facility] [address] [place] [address] Dr. Herve Machado Cholesterol in HDL [Mass/Vol] 51 mg/dL Normal 40-60 [facility] Comment on above: Performed By: #### T SH, FT3 #### [facility] [address] [place] [address] Dr. Herve Machado Cholesterol in LDL [Mass/Vol] 68.6 mg/dL Normal [facility] Comment on above: Performed By: #### T SH, FT3 #### [facility] [address] [place] [address] Dr. Herve Machado Cholesterol.total/Choles terol in HDL [Mass ratio] 2.7 {ratio} Normal [facility] Comment on above: Performed By: #### T SH, FT3 #### [facility] [address] [place] [address] Dr. Herve Machado HDL NORMAL > or = 60 mg/dl - LOW CARDIOVASCULAR RISK <40 mg/dl - HIGH CARDIOVASCULAR RISK Normal [facility] Comment on above: Performed By: #### T SH, FT3 #### [facility] [address] [place] [address] Dr. Herve Machado LDL CALC NORMAL SEE BELOW Normal [facility] Comment on above: Result Comment: <100 mg/dl OPTIMAL 100 - 129 mg/dl NEAR OR ABOVE OPTIMAL 130 - 159 mg/dl BORDERLINE HIGH 160 - 189 mg/dl HIGH >190 mg/dl VERY HIGH Performed By: #### T SH, FT3 #### [facility] [address] [place] [address] Dr. Herve Machado Triglyceride [Mass/Vol] 82 mg/dL Normal <=150 [facility] Comment on above: Performed By: #### T SH, FT3 #### [facility] [address] [place] [address] Dr. Herve Machado VLDL CALC 16.4 mg/dL Normal [facility] Comment on above: Performed By: #### T SH, FT3 #### [facility] [address] [place] [address] Dr. Herve Machado MICROALBUMIN, RAND URon 06-20 mALB <1.3 Normal <=30.0 [facility] Comment on above: Performed By: #### T SH, FT3 #### [facility] [address] [place] [address] Dr. Herve Machado PROF 14(COMP METB)on 023 Albumin [Mass/Vol] 3.6 g/dL Normal 3.4-5.0 [facility] Comment on above: Performed By: #### T SH, FT3 #### [facility] [address] [place] [address] [address] Herve Machado Albumin/Globulin [Mass ratio] 1.1 {ratio} Normal [facility] Comment on above: Performed By: #### T ASIA, FT3 #### [facility] [address] [place] [address] [address] Herve Machado ALP [Catalytic activity/Vol] 64 U/L Normal 46-116 [facility] Comment on above: Performed By: #### T ASIA, FT3 #### [facility] [address] [place] [address] [address] Herve Machado ALT [Catalytic activity/Vol] 21 U/L Normal 14-59 [facility] Comment on above: Performed By: #### T ASIA, FT3 #### [facility] [address] [place] [address] Dr. Herve Machado Anion gap [Moles/Vol] 11.2 mmol/L Normal [facility] Comment on above: Performed By: #### T ASIA, FT3 #### [facility] [address] [place] [address] Dr. Herve Machado AST [Catalytic activity/Vol] 18 U/L Normal 15-37 [facility] Comment on above: Performed By: #### T ASIA, FT3 #### [facility] [address] [place] [address] Dr. Herve Machado Bilirubin [Mass/Vol] 0.6 mg/dL Normal 0.2-1.0 [facility] Comment on above: Performed By: #### T ASIA, FT3 #### [facility] [address] [place] [address] [address] Herve Machado Calcium [Mass/Vol] 10.2 mg/dL Critically high 8.5-10.1 [facility] Comment on above: Performed By: #### T ASIA, FT3 #### [facility] [address] [place] [address] [address] Herve Machado Chloride [Moles/Vol] 107 mmol/L Normal 98-107 [facility] Comment on above: Performed By: #### T ASIA, FT3 #### [facility] [address] [place] [address] [address] Herve Machado CO2 [Moles/Vol] 28.3 mmol/L Normal 21.0-32.0 [facility] Comment on above: Performed By: #### T SH, FT3 #### [facility] [address] [place] [address] [address] Herve Machado Creatinine [Mass/Vol] 0.66 mg/dL Normal 0.55-1.02 [facility] Comment on above: Performed By: #### T SH, FT3 #### [facility] [address] [place] [address] [address] Herve Machado EGFR-AF LIBERIAN >60 Normal >=60 [facility] Comment on above: Performed By: #### T SH, FT3 #### [facility] [address] [place] [address] Dr. Herve Machado EGFR-NON AF LIBERIAN >60 Normal >=60 [facility] Comment on above: Performed By: #### T SH, FT3 #### [facility] [address] [place] [address] Dr. Herve Machado Globulin (S) [Mass/Vol] 3.3 g/dL Normal [facility] Comment on above: Performed By: #### T SH, FT3 #### [facility] [address] [place] [address] Dr. Herve Machado Glucose [Mass/Vol] 154 mg/dL Critically high 74-106 [facility] Comment on above: Performed By: #### T SH, FT3 #### [facility] [address] [place] [address] Dr. Herve Machado Potassium [Moles/Vol] 4.5 mmol/L Normal 3.5-5.1 [facility] Comment on above: Performed By: #### T SH, FT3 #### [facility] [address] [place] [address] [address] Herve Machado Protein [Mass/Vol] 6.9 g/dL Normal 6.4-8.2 [facility] Comment on above: Performed By: #### T SH, FT3 #### [facility] [address] [place] [address] [address] Herve Machado Sodium [Moles/Vol] 142 mmol/L Normal 136-145 [facility] Comment on above: Performed By: #### T SH, FT3 #### [facility] [address] [place] [address] Dr. Herve Machado Urea nitrogen [Mass/Vol] 11.0 mg/dL Normal 7.0-18.0 [facility] Comment on above: Performed By: #### T SH, FT3 #### [facility] [address] [place] [address] Dr. Herve Machado Urea nitrogen/Creatinine [Mass ratio] 16.7 mg/mg Normal [facility] Comment on above: Performed By: #### T SH, FT3 #### [facility] [address] [place] [address] Dr. Herve Machado UA RANDOM W/MICROSCOPICon BACTERIA MODERATE Abnormal NONE SEEN [facility] Comment on above: Performed By: #### U AMIC #### [facility] [address] [place] [address] Dr. Herve Machado Bilirubin Ql (U) Negative Normal NEGATIVE [facility] Comment on above: Performed By: #### U AMIC #### [facility] [address] [place] [address] Dr. Herve Machado CAST NONE SEEN Normal NONE [facility] Comment on above: Performed By: #### U AMIC #### [facility] [address] [place] [address] Dr. Herve Machado Clarity (U) CLEAR Normal CLEAR [facility] Comment on above: Performed By: #### U AMIC #### [facility] [address] [place] [address] Dr. Herve Machado Color (U) LT. YELLOW Normal YELLOW [facility] Comment on above: Performed By: #### U AMIC #### [facility] [address] [place] [address] Dr. Herve Machado Crystals LM Nom (Urine sed) NONE SEEN Normal NONE SEEN [facility] Comment on above: Performed By: #### U AMIC #### [facility] [address] [place] [address] [address] Herve Machado Epithelial cells LM Ql (Urine sed) FEW Abnormal NONE SEEN /RARE [facility] Comment on above: Performed By: #### U AMIC #### [facility] [address] [place] [address] [address] Herve Machado Glucose Ql (U) Negative Normal NEGATIVE [facility] Comment on above: Performed By: #### U AMIC #### [facility] [address] [place] [address] [address] Herve Machado Hemoglobin Ql (U) Negative Normal NEGATIVE [facility] Comment on above: Performed By: #### U AMIC #### [facility] [address] [place] [address] Dr. Herve Machado Ketones Ql (U) Negative Normal NEGATIVE [facility] Comment on above: Performed By: #### U AMIC #### [facility] [address] [place] [address] Dr. Herve Machado LEUKOCYTES Negative Normal NEGATIVE [facility] Comment on above: Performed By: #### U AMIC #### [facility] [address] [place] [address] [address] Herve Machado MUCOUS NONE SEEN Normal NONE SEEN [facility] Comment on above: Performed By: #### U AMIC #### [facility] [address] [place] [address] Dr. Herve Machado Nitrite Ql (U) Positive Abnormal NEGATIVE [facility] Comment on above: Performed By: #### U AMIC #### [facility] [address] [place] [address] [address] Herve Machado pH (U) 6.0 [pH] Normal 5-9 [facility] Comment on above: Performed By: #### U AMIC #### [facility] [address] [place] [address] Dr. Herve Machado RBC 0-2 Normal 0-2 [facility] Comment on above: Performed By: #### U AMIC #### [facility] [address] [place] [address] [address] Herve Machado SPEC GRAVITY 1.010 Normal 1.005-<=1.025 [facility] Comment on above: Performed By: #### U AMIC #### [facility] [address] [place] [address] [address] Herve Machado UA PROTEIN Negative Normal NEGATIVE/ TRACE [facility] Comment on above: Performed By: #### U AMIC #### [facility] [address] [place] [address] [address] Herve Machado Urobilinogen Qn (U) 0.2 {Connie'U}/dL Normal 0.2 - 1. 0 [facility] Comment on above: Performed By: #### U AMIC #### [facility] [address] [place] [address] [address] Herve Machado WBC 2-5 Abnormal NONE SEEN [facility] Comment on above: Performed By: #### U AMIC #### [facility] [address] [place] [address] [address] Herve Machado Physician Referralon 023 Physician Referral [id number]:[id number] Normal [facility] MG MAMM SCREEN 3D VEDA CADon 07-04-2022 MG MAMM SCREEN 3D VEDA CAD Patient: EMILY ADORNO Exam Date: 07/04/2022 : 1955 Gender:F Ordering : ARLEEN NIETO 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 Admission #: [id number] Family : Order #: [id number] CLICK HERE TO VIEW EXAM RADIOLOGY REPORT [...] pancreatic cancer at age 64. LOCATION: [facility] BREAST COMPOSITION: Scattered areas fibroglandular density. FINDINGS: [...] Meade MD on 07/04/2022 at 10:24 Normal [facility] GLYCOHEMOGLOBIN A1Con 2021 ADA RECOMMENDATION SEE BELOW Normal [facility] Comment on above: Result Comment: ADA RECOMMENDED LIMIT 4.0 - 6.0 ADA THERAPEUTIC TARGET < 7.0 ACTION SUGGESTED > 7.0 Performed By: #### A 1C #### [facility] [address] [place] [address] Dr. Herve Machado Glucose [Mass/Vol] 189 mg/dL Normal [facility] Comment on above: Performed By: #### A 1C #### [facility] [address] [place] [address] [address] Herve Machado HbA1c (Bld) [Mass fraction] 8.2 % Critically high 4.5-6.2 [facility] Comment on above: Performed By: #### A 1C #### [facility] [address] [place] [address] Dr. Herve Machado FREE T3on 02-28-2022 FREE T3 2.44 pg/mlL Normal 2.18-3.98 [facility] Comment on above: Performed By: #### T SH, FT3 #### [facility] [address] [place] [address] Dr. Herve Machado FREE T4on 02-28-2022 Free T4 [Mass/Vol] 1.48 ng/dL Critically high 0.76-1.46 T [facility] Comment on above: Performed By: #### T SH, FT3 #### [facility] [address] [place] [address] Dr. Herve Machado TSHon 02-28-2022 TSH 1.115 uIU/mL Normal 0.358-3.740 [facility] Comment on above: Performed By: #### T SH, FT3 #### [facility] [address] [place] [address] Dr. Herve Machado FREE T3on 11-27-2021 FREE T3 2.54 pg/mlL Normal 2.18-3.98 [facility] Comment on above: Performed By: #### T SH, FT3 #### [facility] [address] [place] [address] Dr. Herve Machado FREE T4on 11-27-2021 Free T4 [Mass/Vol] 1.85 ng/dL Critically high 0.76-1.46 [facility] Comment on above: Performed By: #### T SH, FT3 #### [facility] [address] [place] [address] Dr. Herve Machado TSHon 11-27-2021 TSH 0.228 uIU/mL Critically low 0.358-3.740 [facility] Comment on above: Performed By: #### T SH, FT3 #### [facility] [address] [place] [address] Dr. Herve Machado FREE T3on 10-25-2021 FREE T3 2.50 pg/mlL Normal 2.18-3.98 [facility] Comment on above: Performed By: #### T SH, FT3 #### [facility] [address] [place] [address] Dr. Herve Machado FREE T4on 10-25-2021 Free T4 [Mass/Vol] 1.61 ng/dL Critically high 0.76-1.46 [facility] Comment on above: Performed By: #### T SH, FT3 #### [facility] [address] [place] [address] Dr. Herve Machado TSHon 10-25-2021 TSH 1.949 uIU/mL Normal 0.358-3.740 [facility] Comment on above: Performed By: #### T SH, FT3 #### [facility] [address] [place] [address] Dr. Herve AWAN T4on 09-28-2021 Free T4 [Mass/Vol] 1.50 ng/dL Critically high 0.76-1.46 [facility] Comment on above: Performed By: #### T SH, FT3 #### [facility] [address] [place] [address] [address] Herve Machado LIPID PROFILEon 09-28-2021 CHOL-HDL RATIO NORM SEE BELOW Normal [facility] Comment on above: Result Comment: 3.3 - 4.4 LOW RISK 4.4 - 7.1 AVERAGE RISK 7.1 - 11.0 MODERATE RISK >11.0 HIGH RISK Performed By: #### L IPID, TSH #### [facility] [address] [place] [address] [address] Herve Machado Cholesterol [Mass/Vol] 223 mg/dL Critically high <=200 [facility] Comment on above: Performed By: #### L IPID, TSH #### [facility] [address] [place] [address] [address] Herve Machado Cholesterol in HDL [Mass/Vol] 53 mg/dL Normal 40-60 [facility] Comment on above: Performed By: #### L IPID, TSH #### [facility] [address] [place] [address] [address] Herve Machado Cholesterol in LDL [Mass/Vol] 152.2 mg/dL Normal [facility] Comment on above: Performed By: #### L IPID, TSH #### [facility] [address] [place] [address] [address] Herve Machado Cholesterol.total/Choles terol in HDL [Mass ratio] 4.2 {ratio} Normal [facility] Comment on above: Performed By: #### L IPID, TSH #### [facility] [address] [place] [address] [address] Herve Machado HDL NORMAL > or = 60 mg/dl - LOW CARDIOVASCULAR RISK <40 mg/dl - HIGH CARDIOVASCULAR RISK Normal [facility] Comment on above: Performed By: #### L IPID, TSH #### [facility] [address] [place] [address] [address] Herve Machado LDL CALC NORMAL SEE BELOW Normal [facility] Comment on above: Result Comment: <100 mg/dl OPTIMAL 100 - 129 mg/dl NEAR OR ABOVE OPTIMAL 130 - 159 mg/dl BORDERLINE HIGH 160 - 189 mg/dl HIGH >190 mg/dl VERY HIGH Performed By: #### L IPID, TSH #### [facility] [address] [place] [address] [address] Herve Machado Triglyceride [Mass/Vol] 89 mg/dL Normal <=150 [facility] Comment on above: Performed By: #### L IPID, TSH #### [facility] [address] [place] [address] [address] Herve Machado VLDL CALC 17.8 mg/dL Normal [facility] Comment on above: Performed By: #### L IPID, TSH #### [facility] [address] [place] [address] Dr. Herve Machado TSHon 09-28-2021 TSH 1.423 uIU/mL Normal 0.358-3.740 [facility] Comment on above: Performed By: #### T SH, FT3 #### [facility] [address] [address] [address] Herve Machado TSH RANGE SEE BELOW Normal [facility] Comment on above: Result Comment: <0.3 4 UIU/ml HYPERTHYROID 0.34-5.60 UIU/ml EUTHYROID >5.60 UIU/ml HYPOTHYROID Performed By: #### T SH, FT3 #### [facility] [address] [place] [address] Dr. Herve Machado Vital Signs Date Time Vital Sign Value Performing Clinician Faci lity 03-29-2024 09:10-0500 Body height 139.7 cm Jean Quick MD Work Phone: [facility] 03-29-2024 09:10-0500 Body mass index (BMI) [Ratio] 31.38 kg/m2 Jean Quick MD Work Phone: [facility] 03-29-2024 09:10-0500 Body weight 61.24 kg Jean Quick MD Work Phone: [facility] 03-29-2024 09:10-0500 Diastolic blood pressure 64 mm[Hg] Jean Quick MD Work Phone: [facility] 03-29-2024 09:10-0500 Heart rate 100 /min Jean Quick MD Work Phone: [facility] 03-29-2024 09:10-0500 Respiratory rate 20 /min Jean Quick MD Work Phone: [facility] 03-29-2024 09:10-0500 Systolic blood pressure 124 mm[Hg] Jean Quick MD Work Phone: [facility] 01-07-2024 09:06-0400 Body mass index (BMI) [Ratio] 31.75 kg/m2 Stella Aichholz CUSTOMER STRATEGY MANAGER Work Phone: [facility] 01-07-2024 09:06-0400 Body temperature 98.29 [degF] Stella Aichholz CUSTOMER STRATEGY MANAGER Work Phone: [facility] 01-07-2024 09:06-0400 Body weight 61.96 kg Stella Aichholz CUSTOMER STRATEGY MANAGER Work Phone: [facility] 01-07-2024 09:06-0400 Diastolic blood pressure 76 mm[Hg] Stella Aichholz CUSTOMER STRATEGY MANAGER Work Phone: [facility] 01-07-2024 09:06-0400 Heart rate 107 /min Stella Aichholz CUSTOMER STRATEGY MANAGER Work Phone: [facility] 01-07-2024 09:06-0400 Respiratory rate 19 /min Stella Aichholz CUSTOMER STRATEGY MANAGER Work Phone: [facility] 01-07-2024 09:06-0400 SaO2% (BldA) [Mass fraction] 97 % Stella Aichholz CUSTOMER STRATEGY MANAGER Work Phone: [facility] 01-07-2024 09:06-0400 Systolic blood pressure 116 mm[Hg] Stella Aichholz CUSTOMER STRATEGY MANAGER Work Phone: [facility] Encounters Encounter Date Encounter Type Care Provider Facility Start: 07-07-2024 End: 07-07-2024 ambulatory STELLA NIETO Not Available Start: 06-24-2024 End: 06-24-2024 Orders Only Stella Gerson CUSTOMER STRATEGY MANAGER Work Phone: [facility] Comment on above: Environmental allerg ies (Primary Dx) Start: 05-19-2024 End: 05-19-2024 Refill Stella Aichholz CUSTOMER STRATEGY MANAGER Work Phone: [facility] Comment on above: Type 2 diabetes leah itus without complications (CMS/HCC); Other specified anxiety disorders; Mild episode of recurrent major depressive disorder (HCC) (CMS/HCC) Start: 04-16-2024 End: 04-18-2024 Refill Stella Aichholz CUSTOMER STRATEGY MANAGER Work Phone: [facility] Comment on above: Type 2 diabetes leah itus without complications (CMS/HCC); Environmental allergies Start: 04-10-2024 End: 04-11-2024 Refill Stella Elanaz CUSTOMER STRATEGY MANAGER Work Phone: [facility] Comment on above: Type 2 diabetes leah itus without complications (CMS/HCC) Start: 03-29-2024 End: 03-29-2024 Bamboo flowsheet Jean Quick MD Work Phone: [facility] Start: 03-29-2024 End: 03-29-2024 Bamboo flowsheet Jean Quick MD Work Phone: [facility] Start: 03-29-2024 End: 03-29-2024 Office outpatient visit 25 minutes Jean Quick MD Work Phone: [facility] Comment on above: Hypercalcemia (Prima ry Dx); Vitamin D deficiency; Hypomagnesemia; Osteopenia of multiple sites Start: 03-29-2024 End: 03-29-2024 ambulatory JEAN QUICK Not Available Start: 03-22-2024 End: 03-22-2024 ambulatory Stella Bola Nieto Facility:[facility] Start: 03-19-2024 End: 03-19-2024 Refill Stella Nieto CUSTOMER STRATEGY MANAGER Work Phone: [facility] Comment on above: Hypothyroidism, unsp ecified type (CMS/HCC) Start: 03-02-2024 End: 03-02-2024 Refill Melissa Olguin MA [facility] Comment on above: Type 2 diabetes leah itus without complications (CMS/HCC); Mixed hyperlipidemia (CMS/HCC) Start: 02-03-2024 End: 02-03-2024 Clinisync Result Encounter Stella Nieto CUSTOMER STRATEGY MANAGER Work Phone: [facility] Unsolicited Start: 02-03-2024 End: 02-03-2024 Clinisync Result Encounter Stella Gerson CUSTOMER STRATEGY MANAGER Work Phone: [facility] Unsolicited Start: 01-28-2024 End: 01-28-2024 Refill Stella Nieto CUSTOMER STRATEGY MANAGER Work Phone: [facility] Comment on above: Anxiety in acute str ess reaction (CMS/HCC) (Primary Dx); Dental disease Start: 01-07-2024 End: 01-07-2024 Bamboo flowsheet Stella Nieto CUSTOMER STRATEGY MANAGER Work Phone: [facility] Start: 01-07-2024 End: 01-07-2024 Bamboo flowsheet Stella Nieto CUSTOMER STRATEGY MANAGER Work Phone: [facility] Start: 01-07-2024 End: 01-07-2024 Patient encounter procedure Stella Nieto CUSTOMER STRATEGY MANAGER Work Phone: [facility] Comment on above: Encounter for subseq uent annual wellness visit (AWV) in Medicare patient (Primary Dx); Type 2 diabetes mellitus without complication, without long-term current use of insulin (CMS/HCC); Hypothyroidism, unspecified type (CMS/HCC); Mild episode of recurrent major depressive disorder (HCC) (CMS/HCC); Primary hypertension (CMS/HCC); Obesity (BMI 30-39.9) Start: 01-07-2024 End: 01-07-2024 ambulatory STELLA HUITRONZ Not Available Start: 12-27-2023 End: 12-29-2023 Refill Stella Nieto CUSTOMER STRATEGY MANAGER Work Phone: [facility] Comment on above: Hypothyroidism, unsp ecified type (CMS/HCC) Start: 10-07-2023 End: 10-07-2023 ambulatory STELLA MENDEZHOLZ Not Available Start: 09-25-2023 End: 09-25-2023 Patient encounter procedure Stella Huitronz Work Phone: [facility] [place] Work Phone: Start: 09-25-2023 End: 09-25-2023 ambulatory Stella Nieto Work Phone: [facility] Work Phone: Start: 07-22-2023 End: 07-22-2023 ambulatory STELLA NIETO Not Available Start: 06-05-2023 End: 06-06-2023 ambulatory [facility] Start: 03-26-2023 End: 03-26-2023 ambulatory Stellaeverette Nieto Work Phone: [facility] Work Phone: Start: 03-26-2023 End: 03-26-2023 Patient encounter procedure Stella Nieto Work Phone: [facility] [place] Work Phone: Start: 09-06-2022 ambulatory Faye Roche Facili ty:[facility] Start: 09-02-2022 End: 09-03-2022 ambulatory 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 STELLA MENDEZHOLZ Facility:[facility] Start: 08-27-2022 End: 08-27-2022 [facility] Start: 08-27-2022 End: 08-28-2022 ambulatory Larissa OROZCO [place] Start: 08-12-2022 End: 08-13-2022 ambulatory 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 STELLA GERSON Facility:[facility] Start: 08-02-2022 End: 08-03-2022 ambulatory Faye Roche Facility:[facility] Start: 07-15-2022 End: 07-16-2022 ambulatory ARLEEN RUSH GERSON Facility:[facility] Start: 07-11-2022 ambulatory Faye Roche Facility :[facility] Start: 07-04-2022 End: 07-05-[address] LIZY MEADE Facility:[facility] Start: 04-04-2022 End: 04-05-2022 ambulatory 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 STELLA NIETO Facility:[facility] Start: 02-28-2022 End: 03-01-2022 ambulatory 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 STELLA GERSON Facility:[facility] Start: 11-27-2021 End: 11-28-2021 ambulatory 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 STELLA GERSON Facility:[facility] Start: 10-25-2021 End: 10-26-2021 ambulatory 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 STELLA GERSON Facility:[facility] Start: 09-28-2021 End: 09-29-2021 ambulatory 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 STELLA ELANAZ Facility:[facility] Start: 10-23-2017 End: 10-24-2017 Ambulatory DEFAULT PHYSICIAN Facility:[facility] Start: 10-13-2017 End: 10-14-2017 Ambulatory DEFAULT PHYSICIAN Facility:[facility] Procedures Date Procedure Procedure Detail Performing Clinician Start: 02-03-2024 MLR HEMOGLOBIN A1C Stella Nieto CUSTOMER STRATEGY MANAGER Work Phone: Start: 07-11-2023 Mammography Stella Mark calderón CUSTOMER STRATEGY MANAGER Work Phone: Start: 08-27-2022 Colonoscopy Stella Vanessah olz CUSTOMER STRATEGY MANAGER Work Phone: Plan of Treatment Date Care Activity Detail Author Start: 08-27-2032 Screening for malignant neoplasm of colon [facility] Start: 06-24-2025 Glaucoma screening Diabetes: R etinopathy Screening [facility] Start: 03-28-2025 End: 03-28-2025 Patient encounter procedure 03/28/2025 9:00 AM EST Office Visit [facility] [id number] [place] [phone] Jean Quick MD [address] [place] [address] [facility] Start: 01-06-2025 Medicare Annual Wellness (AWV) Medicare Annual Wellness (AWV) [facility] Start: 08-13-2024 Urine screening for protein Diabetes: Urine Protein Screening [facility] Start: 07-10-2024 Screening for malignant neoplasm of breast Mammogram [facility] Start: 07-07-2024 End: 07-07-2024 Patient encounter procedure 07/07/2024 9:00 AM EDT Office Visit [facility] [address] [place] [id number] Stella Nieto NP [address] [place] [id number] [facility] Start: 05-05-2024 Hemoglobin A1c measurement Diabetes: Hemoglobin A1C [facility] Start: 03-29-2024 End: 03-29-2025 25-hydroxyvitamin D3 [Mass/volume] in Serum or Plasma Vitamin D 25 hydroxy Total Lab Routine Vitamin D deficiency Expected: 03/29/2024 (Approximate), Expires: 03/29/2025 [facility] Work Phone: Comment on above: Expected: 03/29/2024 (Approximate), Expires: 03/29/2025 Start: 03-29-2024 End: 03-29-2025 Parathyrin.intact [Mass/volume] in Serum or Plasma PTH, intact Lab Routine Hypercalcemia Expected: 03/29/2024 (Approximate), Expires: 03/29/2025 [facility] Comment on above: Expected: 03/29/2024 (Approximate), Expires: 03/29/2025 Start: 03-29-2024 End: 03-29-2025 Renal function panel Renal function panel Lab Routine Hypercalcemia Expected: 03/29/2024 (Approximate), Expires: 03/29/2025 [facility] Comment on above: Expected: 03/29/2024 (Approximate), Expires: 03/29/2025 Start: 03-29-2024 End: 03-29-2024 Patient encounter procedure [facility] Comment on above: Arrived Start: 02-19-2024 Influenza vaccination Influenza Vacc ine (#1) [facility] Comment on above: Postponed from 12/20 (Patient Does Not Have Time) Start: 01-07-2024 End: 01-06-2025 Hemoglobin A1c/Hemoglobin.total in Blood Hemoglobin A1c Lab Routine Type 2 diabetes mellitus without complication, without long-term current use of insulin ([facility]) Expected: 01/07/2024 (Approximate), Expires: 01/06/2025 [facility] Work Phone: Comment on above: Expected: 01/07/2024 (Approximate), Expires: 01/06/2025 Start: 01-07-2024 Medicare Annual Wellness (AWV) Medicare Annual Wellness (AWV) [facility] Start: 01-07-2024 End: 01-07-2024 Patient encounter procedure [facility] Comment on above: Arrived Start: 12-21-2023 Influenza vaccination Influenza Vacc ine (#1) [facility] Start: 11-13-2023 Hemoglobin A1c measurement Diabetes: Hemoglobin A1C [facility] Start: 07-23-2023 Hemoglobin A1c measurement Diabetes: Hemoglobin A1C [facility] Start: 1965 Glaucoma screening Diabetes: R etinopathy Screening [facility] Start: 1955 Screening for malignant neoplasm of colon [facility] Immunizations Immunization Date Immunization Notes Care Provider Fa cility 01-14-2023 Influenza, Seasonal, Quadrivalent, Adjuvanted Stella Aicnurysz CUSTOMER STRATEGY MANAGER Work Phone: [facility] 01-14-2023 SARS-COV-2 (COVID-19 ) vaccine, mRNA, spike protein, LNP, PF, digna-sucrose, 30 mcg/0.3 mL Stella Aichholz CUSTOMER STRATEGY MANAGER Work Phone: [facility] 01-14-2023 influenza virus vaccine, unspecified formulation Stella Aichholz CUSTOMER STRATEGY MANAGER Work Phone: [facility] 04-23-[address] 12 Years And Older Stella Gerson CUSTOMER STRATEGY MANAGER Work Phone: [facility] 04-23-2022 SARS-CoV-2 (COVID-19 ) [id number] Dias SALAM [facility] 07-30-2021 Pfizer Myles Cap SARS-CoV-2 Vaccination Stella Gerson CUSTOMER STRATEGY MANAGER Work Phone: [facility] 07-30-2021 SARS-CoV-2 mRNA (osaodokhfcf-oned-eemlf se) vaccine Dias SALAM [facility] 07-30-2021 SARS-CoV-2, Unspecified Stella Mendezsachin CUSTOMER STRATEGY MANAGER Work Phone: [facility] 02-02-2021 influenza virus vaccine, unspecified formulation Dias SALAM [facility] 02-02-2021 Influenza, High-dose Seasonal, Quadrivalent, Preservative Free Stella Gerson CUSTOMER STRATEGY MANAGER Work Phone: [facility] 02-02-2021 pneumococcal conjuga te vaccine, 13 valent Dias SALAM [facility] 01-15-2021 SARS-CoV-2 (COVID-19 ) mRNA BNT-162b2 vax Dias SALAM [facility] 07-11-2020 SARS-CoV-2 (COVID-19 ) mRNA BNT-162b2 vax Dias SALAM [facility] 06-19-2020 SARS-CoV-2 (COVID-19 ) mRNA BNT-162b2 vax Dias SALAM [facility] 01-22-2020 influenza virus vaccine, unspecified formulation Dias SALAM [facility] 01-22-2020 Influenza, High-dose Seasonal, Quadrivalent, Preservative Free Stella Aichholz CUSTOMER STRATEGY MANAGER Work Phone: [facility] 04-26-2019 influenza virus vaccine, unspecified formulation Dias SALAM [facility] 04-26-2019 Seasonal, quadrivale nt, recombinant, injectable influenza vaccine, preservative free Stella Aichholz CUSTOMER STRATEGY MANAGER Work Phone: [facility] 02-06-2018 influenza virus vaccine, unspecified formulation Dias SALAM [facility] 02-06-2018 influenza, injectabl e, quadrivalent, preservative free Stella Aichholz CUSTOMER STRATEGY MANAGER Work Phone: [facility] 01-30-2017 influenza virus vaccine, unspecified formulation Dias SALAM [facility] 01-30-2017 influenza, seasonal, injectable, preservative free Stella Aichholz CUSTOMER STRATEGY MANAGER Work Phone: [facility] 01-30-2016 zoster vaccine, live Dias S ALAM [facility] 01-15-2016 influenza virus vaccine, unspecified formulation Dias SALAM [facility] 01-15-2016 influenza, seasonal, injectable, preservative free Stella Aichholz CUSTOMER STRATEGY MANAGER Work Phone: [facility] 04-22-2012 influenza virus vaccine, whole virus Stella Aichholz CUSTOMER STRATEGY MANAGER Work Phone: [facility] 04-22-2012 influenza, injectabl e, quadrivalent, contains preservative Stella Aichholz CUSTOMER STRATEGY MANAGER Work Phone: [facility] 04-22-2012 influenza, whole Dias SALAM [facility] 02-06-2009 influenza virus vaccine, whole virus Stella Aichholz CUSTOMER STRATEGY MANAGER Work Phone: [facility] 02-06-2009 influenza, injectabl e, quadrivalent, contains preservative Stella Gerson CUSTOMER STRATEGY MANAGER Work Phone: [facility] 02-06-2009 influenza, whole Dias SALAM [facility] Payers Date Payer Category Payer Medicare [id number] 2023 Self-pay [id number] 2019 Medicare [id number] 1959 Medicaid [id number] 1960 Medicare [id number] 1954 Unknown [id number] 2.16.84 0.1.685741.3.579.2.593 1954 Unknown [id number] 2.16.84 0.1.609631.3.579.2.593 1954 Unknown [id number] 2.16.84 0.1.336690.3.579.2.593 1954 Unknown [id number] 2.16.84 0.1.468011.3.579.2.593 1954 Unknown [id number] 2.16.84 0.1.142723.3.579.2.593 1954 Unknown [id number] 2.16.84 0.1.383856.3.579.2.593 1954 Unknown [id number] 2.16.84 0.1.905409.3.579.2.593 1954 Unknown [id number] 2.16.84 0.1.676973.3.579.2.593 1954 Unknown [id number] 2.16.84 0.1.679351.3.579.2.593 1954 Unknown [id number] 2.16.8 40.1.870555.3.579.2.727 1954 Unknown [id number] 2.16.8 40.1.099802.3.579.2.727 1954 Unknown [id number] 2.16.8 40.1.515706.3.579.2.727 1954 Unknown [id number] 2.16.8 40.1.004970.3.579.2.727 1954 Unknown [id number] 2.16.8 40.1.973564.3.579.2.727 1954 Unknown [id number] 2.16.8 40.1.838324.3.579.2.1286 1954 Unknown [id number] 2.16.84 0.1.848555.3.579.2.1259 1954 Unknown [id number] 2.16.84 0.1.349541.3.579.2.1259 1954 Unknown [id number] 2.16.84 0.1.498406.3.579.2.1259 1954 Unknown [id number] 2.16.84 0.1.598345.3.579.2.1259 1954 Unknown [id number] 2.16.84 0.1.979050.3.579.2.1259 Unknown Unknown [id number] 2.16.8 40.1.533028.3.579.2.531 Unknown [id number] 2.16.8 40.1.624135.3.579.2.531 Social History Date Type Detail Facility Start: 08-02-2022 End: 11-25-2022 Tobacco smoking status Never smoked tobacco (finding) [facility] Tobacco smoking status Never Flex [facility] Start: 03-26-2023 End: 01-07-2024 Sex Assigned At Female [facility] Start: 1955 Sex Assigned At Female [facility] Start: 11-25-2022 Tobacco use and exposure Smokeless [...] [OSQ] Rather much [facility] (I/We) worried wheazeem er (my/our) food would run out before [...] al Text Equipment Identifier Dates Once daily [id number] Start: 06-26-2023 Clinical Notes 01-07-2024 to 03-29-2024 Jean Quick MD - 03/29/2024 9:10 AM Gordon Nieto NP - 01/07/2024 9:51 AM Rio Nieto NP - 01/07/2024 9:38 AM Rio Nieto NP - 01/07/2024 9:37 AM EDT Note Date [...] over the last two years. Interim History 02/05: Followup visit on 01/27/2018 or hypercalcemia. Calcium [...] [100-300], 24-hour urine total volume 1100. HPI: 03/18 Follow up patient sent from [facility] in [place]al Ortiz CNP for hypercalcemia. The last time [...] hours prior to procedure. Must have a wagon driver for this metFORMIN XR (GLUCOPHAGE-XR) 750 [...] OTHER SURGICAL HISTORY 1981 uterine surgery TONSILLECTOMY REVIEW OF SYMPTOMS: 13 [...] year (around 03/29/2025). documented in this encounter [facility] 01-07-2024 History of Present illness Narrative Associated [...] being taken. 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 SUBJECTIVE: MEDICATIONS: Current Outpatient [...] hours prior to procedure. Must have a wagon driver for this magnesium oxide (MAG-OX) 400 [...] OTHER SURGICAL HISTORY 1980 uterine surgery TONSILLECTOMY family history includes Cancer [...] No changes Fu in 3 months Hypothyroidism (CMS/HCC) Continue with thyroid med and [...] yearly and prn documented in this encounter [facility] Evaluation + Plan note No data available for this section [facility] Evaluation note No assessment inform ation available [facility] Work Phone: Evaluation note Diagnosis Anxiety in acute stress reaction (CMS/HCC)- Primary Dental disease Unspecified disorder of the teeth and supporting structures documented in this encounter [facility] note* Diagnosis Type 2 diabetes mellitus without complication, without long-term current use of insulin (CMS/HCC)- Primary Obesity (BMI 30-39.9) Hyperparathyroidism (CMS/HCC) Hyperparathyroidism, unspecified Primary hypertension (CMS/HCC) Unspecified essential hypertension Gastroesophageal reflux disease without esophagitis Esophageal reflux Depression with anxiety Dysthymic disorder Primary hypertension (CMS/HCC)- Primary Unspecified essential hypertension Vitamin D deficiency Type 2 diabetes mellitus without complication, without long-term current use of insulin (CMS/HCC) Hypothyroidism, unspecified type (CMS/HCC) Mixed hyperlipidemia (CMS/HCC) Mixed hyperlipidemia Encounter for screening mammogram for malignant neoplasm of breast Hyperparathyroidism (CMS/HCC) Hyperparathyroidism, unspecified Hyperparathyroidism, unspecified (E21.3) Hyperparathyroidism, unspecified [...] complication, without long-term current use of insulin ([facility]) Dental disease Unspecified disorder of the teeth and supporting structures Anxiety in acute stress reaction ([facility]) Encounter for subsequent annual wellness visit (AWV) in Medicare patient- Primary Type 2 diabetes mellitus without complication, without long-term current use of insulin ([facility]) Hypothyroidism, unspecified type ([facility]) Mild episode of recurrent major depressive disorder (HCC) ([facility]) Primary hypertension ([facility]) Unspecified essential hypertension Obesity (BMI 30-39.9) Type 2 diabetes mellitus without complications ([facility]) Mixed hyperlipidemia ([facility]) Mixed hyperlipidemia documented in this encounter [facility]* Diagnosis Type 2 diabetes mellitus without complication, without long-term current use of insulin ([facility])- Primary Obesity (BMI 30-39.9) Hyperparathyroidism ([facility]) Hyperparathyroidism, unspecified Primary hypertension ([facility]) Unspecified essential hypertension Gastroesophageal reflux disease without esophagitis Esophageal reflux Depression with anxiety Dysthymic disorder Primary hypertension ([facility])- Primary Unspecified essential hypertension Vitamin D deficiency Type 2 diabetes mellitus without complication, without long-term current use of insulin ([facility]) Hypothyroidism, unspecified type ([facility] Mixed hyperlipidemia ([facility]) Mixed hyperlipidemia Encounter for screening mammogram for malignant neoplasm of breast Hyperparathyroidism ([facility]) Hyperparathyroidism, unspecified Hyperparathyroidism, unspecified (E21.3) Hyperparathyroidism, unspecified Lateral epicondylitis of right elbow- Primary Obesity (BMI 30-39.9) Dental disease Unspecified disorder of the teeth and supporting structures Anxiety in acute stress reaction ([facility]) Type 2 diabetes mellitus without complications ([facility])- Primary Mixed hyperlipidemia ([facility]) Mixed hyperlipidemia Other specified disorders of bone density and structure, unspecified site Environmental allergies Other allergy, other than to medicinal agents Other specified anxiety disorders Mild episode of recurrent major depressive disorder (HCC) ([facility]) Hypothyroidism, unspecified type (/HCC) Essential (primary) hypertension ([facility] [facility]) Unspecified essential hypertension Gastroesophageal reflux disease without esophagitis Esophageal reflux Hypomagnesemia Disorders of magnesium metabolism Primary hypertension ([facility]/HCC) Unspecified essential hypertension Type 2 diabetes mellitus without complication, without long-term current use of insulin ([facility]) Dental disease Unspecified disorder of the teeth and supporting structures Anxiety in acute stress reaction ([facility]) Encounter for subsequent annual wellness visit (AWV) in Medicare patient- Primary Type 2 diabetes mellitus without complication, without long-term current use of insulin ([facility]) Hypothyroidism, unspecified type (CMS/HCC) Mild episode of recurrent major depressive disorder (HCC) ([facility]) Primary hypertension ([facility]) Unspecified essential hypertension Obesity (BMI 30-39.9) Hypothyroidism, unspecified type ([facility]/HCC) documented in this encounter [facility] HealthcareEvaluation note* Diagnosis Type 2 diabetes mellitus without complication, without long-term current use of insulin ([facility])- Primary Obesity (BMI 30-39.9) Hyperparathyroidism ([facility]) Hyperparathyroidism, unspecified Primary hypertension ([facility]) Unspecified essential hypertension Gastroesophageal reflux disease without esophagitis Esophageal reflux Depression with anxiety Dysthymic disorder Primary hypertension ([facility])- Primary Unspecified essential hypertension Vitamin D deficiency Type 2 diabetes mellitus without complication, without long-term current use of insulin ([facility]) Hypothyroidism, unspecified type ([facility]) Mixed hyperlipidemia ([facility]) Mixed hyperlipidemia Encounter for screening mammogram for malignant neoplasm of breast Hyperparathyroidism ([facility]) Hyperparathyroidism, unspecified Hyperparathyroidism, unspecified (E21.3) Hyperparathyroidism, unspecified Lateral epicondylitis of right elbow- Primary Obesity (BMI 30-39.9) Dental disease Unspecified disorder of the teeth and supporting structures Anxiety in acute stress reaction ([facility]) Type 2 diabetes mellitus without complications ([facility])- Primary Mixed hyperlipidemia ([facility]) Mixed hyperlipidemia Other specified disorders of bone density and structure, unspecified site Environmental allergies Other allergy, other than to medicinal agents Other specified anxiety disorders Mild episode of recurrent major depressive disorder (HCC) ([facility]) Hypothyroidism, unspecified type ([facility]) Essential (primary) hypertension ([facility]) Unspecified essential hypertension Gastroesophageal reflux disease without esophagitis Esophageal reflux Hypomagnesemia Disorders of magnesium metabolism Primary hypertension ([facility]) Unspecified essential hypertension Type 2 diabetes mellitus without complication, without long-term current use of insulin ([facility]) Dental disease Unspecified disorder of the teeth and supporting structures Anxiety in acute stress reaction ([facility]) Encounter for subsequent annual wellness visit (AWV) in Medicare patient- Primary Type 2 diabetes mellitus without complication, without long-term current use of insulin (CMS/HCC) Hypothyroidism, unspecified type (CMS/HCC) Mild episode of recurrent major depressive disorder (HCC) (CMS/HCC) Primary hypertension (CMS/HCC) Unspecified essential hypertension Obesity (BMI 30-39.9) Hypercalcemia- [...] (CMS/HCC) Unspecified essential hypertension Obesity (BMI 30-39.9) documented in this encounter [facility]* Diagnosis Hypothyroidism, unspecified type (CMS/HCC) documented in this encounter [facility]* Diagnosis Type 2 diabetes mellitus without complication, without long-term current use of insulin (CMS/HCC)- Primary Obesity (BMI 30-39.9) Hyperparathyroidism (CMS/HCC) Hyperparathyroidism, unspecified Primary hypertension (CMS/HCC) Unspecified essential hypertension Gastroesophageal reflux disease without esophagitis Esophageal reflux Depression with anxiety Dysthymic disorder Primary hypertension (CMS/HCC)- Primary Unspecified essential hypertension Vitamin D deficiency Type 2 diabetes mellitus without complication, without long-term current use of insulin (CMS/HCC) Hypothyroidism, unspecified type (CMS/HCC) Mixed hyperlipidemia (CMS/HCC) Mixed hyperlipidemia Encounter for screening mammogram for malignant neoplasm of breast Hyperparathyroidism ([facility]) Hyperparathyroidism, unspecified Hyperparathyroidism, unspecified (E21.3) Hyperparathyroidism, [...] complication, without long-term current use of insulin (CMS/[facility]) Dental disease Unspecified disorder of the teeth and supporting structures Anxiety in acute stress reaction ([facility]) Encounter for subsequent annual wellness visit (AWV) in Medicare patient- Primary Type 2 diabetes mellitus without complication, without long-term current use of insulin ([facility]) Hypothyroidism, unspecified type (CMS/[facility]) Mild episode of recurrent major depressive disorder (HCC) ([facility]) Primary hypertension ([facility]) Unspecified essential hypertension Obesity (BMI 30-39.9) Type 2 diabetes mellitus without complications ([facility]) documented in this encounter [facility] HealthcareEvaluation note* Diagnosis Type 2 diabetes mellitus without complication, without long-term current use of insulin ([facility])- Primary Obesity (BMI 30-39.9) Hyperparathyroidism (CMS/[facility]) Hyperparathyroidism, unspecified Primary hypertension ([facility]) Unspecified essential hypertension Gastroesophageal reflux disease without esophagitis Esophageal reflux Depression with anxiety Dysthymic disorder Primary hypertension ([facility])- Primary Unspecified essential hypertension Vitamin D deficiency Type 2 diabetes mellitus without complication, without long-term current use of insulin ([facility]) Hypothyroidism, unspecified type (/) Mixed hyperlipidemia ([facility]) Mixed hyperlipidemia Encounter for screening mammogram for malignant neoplasm of breast Hyperparathyroidism ([facility]) Hyperparathyroidism, unspecified Hyperparathyroidism, unspecified (E21.3) Hyperparathyroidism, unspecified Lateral epicondylitis of right elbow- Primary Obesity (BMI 30-39.9) Dental disease Unspecified disorder of the teeth and supporting structures Anxiety in acute stress reaction ([facility]) Type 2 diabetes mellitus without complications ([facility])- Primary Mixed hyperlipidemia ([facility]) Mixed hyperlipidemia Other specified disorders of bone density and structure, unspecified site Environmental allergies Other allergy, other than to medicinal agents Other specified anxiety disorders Mild episode of recurrent major depressive disorder (HCC) (CMS/HCC) Hypothyroidism, unspecified type (CMS/HCC) Essential (primary) hypertension ([facility]/HCC) Unspecified essential hypertension Gastroesophageal reflux disease without esophagitis Esophageal reflux Hypomagnesemia Disorders of magnesium metabolism Primary hypertension ([facility]/HCC) Unspecified essential hypertension Type 2 diabetes mellitus without complication, without long-term current use of insulin ([facility]) Dental disease Unspecified disorder of the teeth and supporting structures Anxiety in acute stress reaction ([facility]) Encounter for subsequent annual wellness visit (AWV) in Medicare patient- Primary Type 2 diabetes mellitus without complication, without long-term current use of insulin ([facility]) Hypothyroidism, unspecified type ([facility]) Mild episode of recurrent major depressive disorder (HCC) ([facility]) Primary hypertension ([facility]) Unspecified essential hypertension Obesity (BMI 30-39.9) Type 2 diabetes mellitus without complications ([facility]) Environmental allergies Other allergy, other than to medicinal agents documented in this encounter [facility] HealthcareEvaluation note* Diagnosis Type 2 diabetes mellitus without complication, without long-term current use of insulin ([facility])- Primary Obesity (BMI 30-39.9) Hyperparathyroidism ([facility]) Hyperparathyroidism, unspecified Primary hypertension ([facility] Unspecified essential hypertension Gastroesophageal reflux disease without esophagitis Esophageal reflux Depression with anxiety Dysthymic disorder Primary hypertension ([facility])- Primary Unspecified essential hypertension Vitamin D deficiency Type 2 diabetes mellitus without complication, without long-term current use of insulin ([facility]) Hypothyroidism, unspecified type ([facility]) Mixed hyperlipidemia ([facility]) Mixed hyperlipidemia Encounter for screening mammogram for malignant neoplasm of breast Hyperparathyroidism ([facility]) Hyperparathyroidism, unspecified Hyperparathyroidism, unspecified (E21.3) Hyperparathyroidism, unspecified Lateral epicondylitis of right elbow- Primary Obesity (BMI 30-39.9) Dental disease Unspecified disorder of the teeth and supporting structures Anxiety in acute stress reaction ([facility]) Type 2 diabetes mellitus without complications ([facility])- Primary Mixed hyperlipidemia ([facility]) Mixed hyperlipidemia Other specified disorders of bone density and structure, unspecified site Environmental allergies Other allergy, other than to medicinal agents Other specified anxiety disorders Mild episode of recurrent major depressive disorder (HCC) ([facility]) Hypothyroidism, unspecified type ([facility]) Essential (primary) hypertension ([facility]) Unspecified essential hypertension Gastroesophageal reflux disease without esophagitis Esophageal reflux Hypomagnesemia Disorders of magnesium metabolism Primary hypertension ([facility]) Unspecified essential hypertension Type 2 diabetes mellitus without complication, without long-term current use of insulin ([facility]) Dental disease Unspecified disorder of the teeth and supporting structures Anxiety in acute stress reaction ([facility]) Encounter for subsequent annual wellness visit [...] disorder (HCC) (CMS/HCC) documented in this encounter [facility] HealthcareEvaluation note* Diagnosis Type 2 diabetes mellitus without complication, without long-term current use of insulin (CMS/HCC)- Primary Obesity (BMI 30-39.9) Hyperparathyroidism (CMS/HCC) Hyperparathyroidism, unspecified Primary hypertension (CMS/HCC) Unspecified essential hypertension Gastroesophageal reflux disease without esophagitis Esophageal reflux Depression with anxiety Dysthymic disorder Primary hypertension (CMS/HCC)- Primary Unspecified essential hypertension Vitamin D deficiency Type 2 diabetes mellitus without complication, without long-term current use of insulin (CMS/[facility]) Hypothyroidism, unspecified type (CMS/HCC) Mixed hyperlipidemia ([facility]) Mixed hyperlipidemia Encounter for screening mammogram for malignant neoplasm of breast Hyperparathyroidism ([facility]) Hyperparathyroidism, unspecified Hyperparathyroidism, unspecified (E21.3) Hyperparathyroidism, unspecified Lateral epicondylitis of right elbow- Primary Obesity (BMI 30-39.9) Dental disease Unspecified disorder of the teeth and supporting structures Anxiety in acute stress reaction (CMS/HCC) Type 2 diabetes mellitus without complications (CMS/HCC)- Primary Mixed hyperlipidemia (CMS/[facility]) Mixed hyperlipidemia Other specified disorders of bone density and structure, unspecified site Environmental allergies Other allergy, other than to medicinal agents Other specified anxiety disorders Mild episode of recurrent major depressive disorder (HCC) (CMS/HCC) Hypothyroidism, unspecified type (CMS/HCC) Essential (primary) hypertension ([facility]/HCC) Unspecified essential hypertension Gastroesophageal reflux disease without esophagitis Esophageal reflux Hypomagnesemia Disorders of magnesium metabolism Primary hypertension (CMS/HCC) Unspecified essential hypertension Type 2 diabetes mellitus without complication, without long-term current use of insulin (CMS/HCC) Dental disease Unspecified disorder of the teeth and supporting structures Anxiety in acute stress reaction ([facility]) Encounter for subsequent annual wellness visit (AWV) in Medicare patient- Primary Type 2 diabetes mellitus without complication, without long-term current use of insulin (CMS/[facility]) Hypothyroidism, unspecified type (CMS/HCC) Mild episode of recurrent major depressive disorder (HCC) (CMS/HCC) Primary hypertension (CMS/HCC) Unspecified essential hypertension Obesity (BMI 30-39.9) Environmental allergies- Primary Other allergy, other than to medicinal agents documented [facility] encounter [facility] No data available for this [facility] data available for this section [facility] Summary Purpose Family History No Family History [...] and content) DATE CREATED AUTHOR 10/24/2017 [facility] DATE CREATED AUTHOR AUTHOR'S ORGANIZ ATION 09/02/2022 [facility] DATE CREATED AUTHOR AUTHOR'S ORGANIZ ATION 09/04/2022 [facility] DATE CREATED AUTHOR AUTHOR'S ORGANIZ ATION 06/07/2023 [facility] DATE CREATED AUTHOR AUTHOR'S ORGANIZ ATION 03/30/2024 [facility] DATE CREATED AUTHOR AUTHOR'S ORGANIZ ATION 07/09/2024 [facility] EPIC Patient Care [...] September 25, 2023 End: September 25, 2023 Computer Network Engineer Relationship Specialty Start Date End Date Ángel Iverson MD [address] [place] [address] PCP - General Family Medicine 07/07/23 Stella Nieto NP [address] [place] [phone] Nurse Practitioner Family Medicine 07/07/23 Computer Network Engineer Relationship Specialty Start Date End Date Ángel Iverson MD [address] [place] [phone] PCP - General Family Medicine 07/07/23 Stella Nieto NP [address] [place] [phone] Nurse Practitioner Family Medicine 07/07/23 Computer Network Engineer Relationship Specialty Start Date End Date Ángel Iverson MD [address] [place] [phone] PCP - General Family Medicine 07/07/23 Stella Nieto NP [address] [place] [phone] Nurse Practitioner Family Medicine 07/07/23 Computer Network Engineer Relationship Specialty Start Date End Date Ángel Iverson MD [address] [place] [phone] PCP - General Family Medicine 07/07/23 Stella Nieto NP [address] [place] [address] Nurse Practitioner Family Medicine 07/07/23 Computer Network Engineer Relationship Specialty Start Date End Date Ángel Iverson MD [address] [place] [phone] PCP - General Family Medicine 07/07/23 Stella Nieto NP [address] [place] [phone] Nurse Practitioner Family Medicine 07/07/23 Computer Network Engineer Relationship Specialty Start Date End Date Ángel Iverson MD [address] [place] [phone] PCP - General Family Medicine 07/07/23 Stella Nieto NP [address] [place] [phone] Nurse Practitioner Family Medicine 07/07/23 Computer Network Engineer Relationship Specialty Start Date End Date Ángel Iverson MD [address] [place] [phone] PCP - General Family Medicine 07/07/23 Stella Nieto NP [address] [place] [phone] Nurse Practitioner Family Medicine 07/07/23 Computer Network Engineer Relationship Specialty Start Date End Date Ángel Iverson MD [address] [place] [phone] PCP - General Family Medicine 07/07/23 Stella Nieto NP [address] [place] [phone] Nurse Practitioner Family Medicine 07/07/23 Computer Network Engineer Relationship Specialty Start Date End Date Ángel Iverson MD [address] [place] [phone] PCP - General Family Medicine 07/07/23 Stella Nieto NP [address] [place] [phone] Nurse Practitioner Family Medicine 07/07/23 Computer Network Engineer Relationship Specialty Start Date End Date Ángel Iverson MD [address] [place] [phone] PCP - General Family Medicine 07/07/23 Stella Nieto NP [address] [place] [phone] Nurse Practitioner Family Medicine 07/07/23 Computer Network Engineer Relationship Specialty Start Date End Date Ángel Iverson MD [address] [place] [phone] PCP - General Family Medicine 07/07/23 Stella Nieto NP [address] [place] [phone] Nurse Practitioner Family Medicine 07/07/23 Computer Network Engineer Relationship Specialty Start Date End Date Ángel Iverson MD [address] [place] [phone] PCP - General Family Medicine 07/07/23 Stella Nieto NP [address] [place] [address] Nurse Practitioner Family Medicine 07/07/23 Computer Network Engineer Relationship Specialty Start Date End Date Ángel Iverson MD [address] [place] [address] PCP - General Family Medicine 07/07/23 Stella Nieto NP [address] [place] [address] Nurse Practitioner Family Medicine 07/07/23 Goals (unrecognized [...] BE BASED ON THE PRIMARY CLINICAL RECORDS. [employer] provides no warranty or guarantee of the accuracy or completeness of information in this document.
[2024-07-13 09:46] LABS: Basophils Percent Auto 0.5 % (0.2-2.0); Eosinophils Absolute Auto 0.3 10^3/uL (0.0-0.7); Eosinophils Percent Auto 3.6 % (0.9-7.0); Hemoglobin 13.9 g/dL (12.0-16.0); Immature Granulocytes Abs Auto 0.03 10^3/uL (0.00-0.03); Immature Granulocytes Pct Auto 0.4 % (0.0-0.5); Lymphocytes Absolute Auto 1.7 10^3/uL (1.2-3.8); Lymphocytes Percent Auto 23.3 % (20.5-60.0); Mean Corpuscular HGB Conc 32.3 g/dL (29.9-35.2); Mean Platelet Volume 9.2 fL (9.5-13.5); Monocytes Absolute Auto 0.5 10^3/uL (0.3-0.8); Monocytes Percent Auto 6.2 % (1.7-12.0); Neutrophils Absolute Auto 4.9 10^3/uL (1.4-6.5); Platelet Count 346 10^3/uL (150-450); Red Blood Count 4.48 10^6/uL (4.20-5.40); Red Cell Distribution Width 12.9 % (11.0-15.0); White Blood Count 7.4 10^3/uL (4.0-11.0)
[2024-07-13 09:46] LABS: Bilirubin Urine NEGATIVE (NEGATIVE); Blood Urine NEGATIVE (NEGATIVE); Clarity Urine CLEAR (CLEAR); Color Urine LT. YELLOW (YELLOW); Glucose Urine UA NEGATIVE (NEGATIVE); Ketones Urine NEGATIVE (NEGATIVE); Leukocyte Esterase Urine NEGATIVE (NEGATIVE); Nitrite Urine NEGATIVE (NEGATIVE); Protein Urine NEGATIVE (NEG/TRACE); Urobilinogen Urine 0.2 EU/dL (0.2-1.0); pH Urine 6.5 (5.0-9.0)
[2024-07-13 09:50] LABS: Urine Microscopic Indicated NO
[2024-07-13 10:42] LABS: Creatinine Urine Random 67.03 mg/dL (20.00-300.00); Microalbum Creatinine Ratio Ur 19.3 mg/g (0.0-29.9); Microalbumin Urine Random <1.3 mg/dL (<=30.0)
[2024-07-13 10:52] LABS: Free T4 1.44 ng/dL (0.76-1.46)
[2024-07-13 11:06] LABS: Alanine Aminotransferase 16 U/L (14-59); Albumin Globulin Ratio 1.1; Albumin Level 3.9 g/dL (3.4-5.0); Alkaline Phosphatase 94 U/L (46-116); Anion Gap 9.2; Aspartate Amino Transferase 15 U/L (15-37); BUN Creatinine Ratio 11.4; Bilirubin Total 0.5 mg/dL (0.2-1.0); Calcium 10.3 mg/dL (8.5-10.1); Carbon Dioxide 30.7 mmol/L (21.0-32.0); Chloride 102 mmol/L (98-107); Chol HDL Ratio 3.2; Cholesterol 185 mg/dL (<=200); Estimated GFR (African America >60 (>=60 mL/min/1.73m^2); Estimated GFR (Non-African Ame >60 (>=60 mL/min/1.73m^2); Free T3 2.43 pg/mL (2.18-3.98); Globulin 3.4 g/dL; Glucose 113 mg/dL (74-106); HDL Cholesterol 57 mg/dL (40-60); Potassium 3.9 mmol/L (3.5-5.1); Sodium 138 mmol/L (136-145); Total Protein 7.3 g/dL (6.4-8.2); Triglycerides 90 mg/dL (<=150)
== END 2024-07-13 09:13 | disposition home or self-care (01) ==
LOC: LAB 09:15
PROVIDERS: PCP Nurse Practitioner; Visit Provider Nurse Practitioner
DX: Z12.31 Encounter for screening mammogram for malignant neoplasm of breast (principal); Z80.8 Family history of malignant neoplasm of other organs or systems; E03.9 Hypothyroidism, unspecified; I10 Essential (primary) hypertension; K21.9 Gastro-esophageal reflux disease without esophagitis; E21.3 Hyperparathyroidism, unspecified; E11.9 Type 2 diabetes mellitus without complications; E55.9 Vitamin D deficiency, unspecified; E78.2 Mixed hyperlipidemia
CPT/HCPCS: 36415; 77063; 77067; 80053; 80061; 81003; 82043; 82570; 84439; 84443; 84481; 85025

== ENCOUNTER 2024-09-08 08:38 | Outpatient (OUT) | payer MEDICARE, SELFPAY ==
--- OUTSIDE RECORDS SUMMARY | 2024-09-08 08:41 | XMS_ITS | CCD ---
Author Organization [facility] Care Team Providers Care Tattoo Technician Name Role Phone PHYSICIAN, DEFAULT Unavailable Unavailable PHYSICIAN, DEFAULT Unavailable Unavailable PHYSICIAN, DEFAULT Unavailable Unavailable PHYSICIAN, DEFAULT Unavailable Unavailable AICHHOLZ, STELLA J Primary Care Physician AICHHOLZ, ADMINISTRATIVE RECEPTIONIST STELLA Attending Unavailable AICHHOLZ, ADMINISTRATIVE RECEPTIONIST STELLA Primary Care Unavailable AICHHOLZ, ADMINISTRATIVE RECEPTIONIST STELLA Admitting Unavailable AICHHOLZ, ADMINISTRATIVE RECEPTIONIST STELLA Consulting Unavailable AICHHOLZ, ADMINISTRATIVE RECEPTIONIST STELLA Admitting Unavailable AICHHOLZ, ADMINISTRATIVE RECEPTIONIST STELLA Attending Unavailable AICHHOLZ, ADMINISTRATIVE RECEPTIONIST STELLA Primary Care Unavailable AICHHOLZ, ADMINISTRATIVE RECEPTIONIST STELLA Consulting Unavailable DR GEORGINA HATCH Consulting Unavailable AICHHOLZ, ADMINISTRATIVE RECEPTIONIST STELLA Attending Unavailable AICHHOLZ, ADMINISTRATIVE RECEPTIONIST STELLA Primary Care Unavailable AICHHOLZ, ADMINISTRATIVE RECEPTIONIST STELLA Admitting Unavailable AICHHOLZ, ADMINISTRATIVE RECEPTIONIST STELLA Consulting Unavailable AICHHOLZ, ADMINISTRATIVE RECEPTIONIST STELLA Attending Unavailable AICHHOLZ, ADMINISTRATIVE RECEPTIONIST STELLA Primary Care Unavailable AICHHOLZ, ADMINISTRATIVE RECEPTIONIST STELLA Referring Unavailable AICHHOLZ, ADMINISTRATIVE RECEPTIONIST STELLA Admitting Unavailable AICHHOLZ, ADMINISTRATIVE RECEPTIONIST STELLA Consulting Unavailable DR LIZY MEADE V Consulting Unavailable AICHHOLZ, ADMINISTRATIVE RECEPTIONIST STELLA Primary Care Unavailable AICHHOLZ, ADMINISTRATIVE RECEPTIONIST STELLA Attending Unavailable AICHHOLZ, ADMINISTRATIVE RECEPTIONIST STELLA Admitting Unavailable AICHHOLZ, ADMINISTRATIVE RECEPTIONIST STELLA Consulting Unavailable AICHHOLZ, ADMINISTRATIVE RECEPTIONIST STELLA Consulting Unavailable AICHHOLZ, ADMINISTRATIVE RECEPTIONIST STELLA Primary Care Unavailable AICHHOLZ, ADMINISTRATIVE RECEPTIONIST STELLA Attending Unavailable AICHHOLZ, ADMINISTRATIVE RECEPTIONIST STELLA Admitting Unavailable AICHHOLZ, ADMINISTRATIVE RECEPTIONIST STELLA Consulting Unavailable AICHHOLZ, ADMINISTRATIVE RECEPTIONIST STELLA Primary Care Unavailable AICHHOLZ, ADMINISTRATIVE RECEPTIONIST STELLA Attending Unavailable AICHHOLZ, ADMINISTRATIVE RECEPTIONIST STELLA Admitting Unavailable AICHHOLZ, ADMINISTRATIVE RECEPTIONIST STELLA Consulting Unavailable AICHHOLZ, ADMINISTRATIVE RECEPTIONIST STELLA Admitting Unavailable AICHHOLZ, ADMINISTRATIVE RECEPTIONIST STELLA Primary Care Unavailable AICHHOLZ, ADMINISTRATIVE RECEPTIONIST STELLA Attending Unavailable AICHHOLZ, ADMINISTRATIVE RECEPTIONIST STELLA Consulting Unavailable AICHHOLZ, ADMINISTRATIVE RECEPTIONIST STELLA Primary Care Unavailable AICHHOLZ, ADMINISTRATIVE RECEPTIONIST STELLA Attending Unavailable AICHHOLZ, ADMINISTRATIVE RECEPTIONIST STELLA Admitting Unavailable Faye Roche Attending Unavailable Faye Roche A Attending Unavailable SALAM, Dias Referring Unavailable SALAM, Dias Attending Unavailable SALAM, Dias Attending Unavailable SALAM, Dias Admitting Unavailable Aicamanda Stella J Primary Care Provider [phone] MD Jean Quick Attending Provider [phone] JEAN QUICK Referring Unavailable MONICA NIETOA J Primary Care Unavailable Monica Nietoa J Primary Care Provider [phone] MD Jean Quick Attending Provider [phone] Ángel Iverson MD Primary Care Provider [phone] Aicamanda STEAM AND POWER SUPERINTENDENT, Stella Unavailable Jean Quick Attending Unavailable Abdelrahman, Ahmad Admitting Unavailable Aicamanda Stella J Primary Care Unavailable Aicamanda, Stella J Primary Care Unavailable Abdelrahman, Timad Attending Unavailable Abdelrahman, Ahmad Admitting Unavailable AICHHOLZ, STELLA Attending Unavailable AICHHOLZ, STELLA Attending Unavailable AICHHOLZ, STELLA Attending Unavailable AICHHOLZ, STELLA Attending Unavailable ABDELRAHMAN, AHMAD F Attending Unavailable ABDELRAHMAN, AHMAD F Referring Unavailable AICHHOLZ, STELLA Attending Unavailable Allergies Allergy Classification Reported Allergen(s) Allergy Type Date of Onset Reaction(s) Facility (20 sources) Penicillins; Translations: [penicillins] Drug allergy 09-18-2013 [facility] Medications Current Medications Medication Drug Class(es) Dates Sig (Normalized) Sig (Original) alendronic acid 35 mg oral tablet (20 sources) Bisphosphonate Start: 07-07-2024 End: 10-12-2024 alendronate (Fosamax) 35 MG tablet Indications: Other specified disorders of bone density and structure, unspecified site Take 1 tablet (35 mg) by mouth every 7 (seven) days 12 tablet 1 07/20/2024 10/12/2024 Active Start: 10-07-2023 End: 12-30-2023 alendronate (Fosamax) 35 [...] Acid 7540 MG / POLYETHYLENE GLYCOL 3350 12626 MG / Potassium Chloride 1200 MG / Sodium Ascorbate 76449 MG / Sodium Chloride 3200 MG Powder for Oral Solution) / 1 (POLYETHYLENE GLYCOL 3350 532387 MG / Potassium Chloride 1000 MG / Sodium Chlori (1 source) Osmotic Laxative, Vitamin C Start: 08-19-2022 Plenvu oral powder for reconstitution See Instructions, 1 EA, Refill(s) 0, samples given to patient (Rx), See physicians instructions prior to procedure. Start Date: 08/19/22 Status: Ordered aspirin 81 mg delayed release oral tablet (12 sources) Platelet Aggregation Inhibitor, Nonsteroidal Anti-inflammatory Drug [...] Status: Ordered atorvastatin 80 mg oral tablet (20 sources) HMG-CoA Reductase Inhibitor Start: 07-07-2024 End: 10-05-2024 take 1 tablet by mouth in the evening atorvastatin (Lipitor) 80 MG tablet Indications: Mixed hyperlipidemia (CMS/HCC) Take 1 tablet (80 mg) by mouth in the evening 90 tablet 1 07/07/2024 10/05/2024 Active Start: 11-10-2023 End: 05-31-2024 take 1 tablet [...] Ordered cetirizine hydrochloride 10 mg oral tablet (20 sources) Histamine-1 Receptor Antagonist Start: 04-18-2024 End: 10-05-2024 take 1 tablet by mouth once daily cetirizine (ZyrTEC) 10 MG tablet Indications: Environmental allergies Take 1 tablet (10 mg) by mouth Daily 90 tablet 1 07/07/2024 10/05/2024 Active Start: 10-07-2023 take 1 tablet by ozzie th once daily cetirizine (ZyrTEC) 10 MG tablet Indications: Environmental allergies Take 1 tablet (10 mg) by mouth Daily 30 tablet 5 10/07/2023 Active DULoxetine 30 mg delayed release oral capsule (20 sources) Serotonin and Norepinephrine Reuptake Inhibitor Start: 11-10-2023 End: 10-05-2024 take 1 capsule by mouth once daily DULoxetine (Cymbalta) [address] capsule Indications: Other specified anxiety disorders , Mild episode of recurrent major depressive disorder (HCC) (CMS/HCC) Take 1 capsule (30 mg) by mouth Daily 90 capsule 1 07/07/2024 10/05/2024 Active Start: 03-24-2017 take 30 mg by mouth once daily duloxetine 30 mg, Oral, Daily, Refills(s) 0, Depression Start Date: 03/24/17 Status: Ordered fluticasone propionate 0.05 mg/actuat metered dose nasal spray (11 sources) Corticosteroid Start: 06-24-2024 End: 09-16-2024 take 2 spray(s) nasal route once daily fluticasone (Flonase) 50 MCG/ACT nasal spray Indications: Environmental allergies Administer 2 sprays into each nostril Daily Shake gently. Before first use, prime pump. After use, clean tip and replace cap. 16 g 5 08/17/2024 09/16/2024 Active ibuprofen 800 mg oral tablet (15 sources) Nonsteroidal Anti-inflammatory Drug Start: 02-03-2024 take 1 tablet by mouth in the morning, then take 1 tablet by mouth in the evening, then take 1 tablet by mouth at bedtime ibuprofen 800 MG tablet Take 800 mg by mouth in the morning and 800 mg in the evening and 800 mg before bedtime. 02/03/2024 Active levothyroxine sodium 0.088 mg oral tablet (20 sources) l-Thyroxine Start: 07-07-2024 End: 10-05-2024 take 1 tablet by mouth before mealtime levothyroxine (Synthroid, Levoxyl) 88 MCG tablet Indications: Hypothyroidism, unspecified type (CMS/HCC) Take 1 tablet (88 mcg) by mouth in the morning. Take before meals. 90 tablet 1 07/07/2024 10/05/2024 Active Start: 10-08-2023 End: 06-17-2024 take 1 tablet [...] Blood glucose Start Date: 03/24/17 Status: Ordered loratadine 10 mg oral tablet (1 source) Start: 03-24-2017 take 10 mg by mouth once daily loratadine 10 mg, Oral, Daily, Refills(s) 0, Allergy symptoms Start Date: 03/24/17 Status: Ordered LORazepam 0.5 mg oral tablet (19 sources) Benzodiazepine Start: 08-17-2024 LORazepam (Ativan) 0.5 MG tablet Indications: Anxiety in acute stress reaction (CMS/HCC) , Dental disease May take 1 pill night before dental procedure, and then repeat 2 hours prior to dental procedure, will need a services delivery driver 2 tablet 1 08/17/2024 Active Start: 08-17-2024 LORazepam (Ati van) 0.5 MG tablet Indications: Anxiety in acute stress reaction (CMS/HCC) , Dental disease May take 1 pill night before dental procedure, and then repeat 2 hours prior to dental procedure, will need a services delivery driver 2 tablet 1 08/17/2024 Active Start: 10-07-2023 End: 01-28-2024 LORazepam (Ativan) 0.5 MG ta blet Indications: Anxiety in acute stress reaction (CMS/HCC) , Dental disease 1 dose the night before the scheduled dental procedure, then may repeat a dose in the morning about 2 hours prior to procedure. Must have a services delivery driver for this 2 tablet 01/28/2024 Active magnesium oxide 400 mg oral tablet (3 sources) Start: 10-07-2023 End: 01-07-2024 take 1 tablet by mouth once daily magnesium oxide (Mag-Ox) 400 mg tablet Indications: Hypomagnesemia Take 1 tablet (400 mg) by mouth Daily 90 tablet 1 10/07/2023 01/07/2024 Active 24 hr metFORMIN hydrochloride 750 mg extended release oral tablet (20 sources) Biguanide Start: 11-10-2023 End: 10-05-2024 take 1 tablet by mouth every twenty-four hours in the morning metFORMIN XR (Glucophage-XR) 750 MG 24 hr tablet Indications: Type 2 diabetes mellitus without complications Take 1 tablet (750 mg) by mouth in the morning and 1 tablet (750 mg) in the evening. Take before meals. 180 tablet 1 07/07/2024 10/05/2024 Active Start: 03-24-2017 take 500 mg by mouth twice daily metformin 500 mg, Oral, BID, Refills(s) 0, Blood glucose Start Date: 03/24/17 Status: Ordered 24 hr metoprolol succinate 25 mg extended release oral tablet (9 sources) beta-Adrenergic German Start: 07-22-2024 End: 11-15-2024 take 0.5 tablet by mouth once daily metoprolol succinate XL (Toprol-XL) 25 MG 24 hr tablet Indications: Primary hypertension (CMS/HCC) Take 0.5 tablets (12.5 mg) by mouth Daily Do not crush or chew. 45 tablet 1 08/17/2024 11/15/2024 Active Start: 03-24-2017 metoprolol 100 mg ER Tab 100 mg = 1 tab(s), Oral, Refills(s) 0, High blood pressure Start Date: 03/24/17 Status: Ordered omeprazole 20 mg delayed release oral capsule (20 sources) Proton Pump Inhibitor Start: 07-07-2024 End: 10-05-2024 take 1 capsule by mouth before mealtime omeprazole (PriLOSEC) [address] capsule Indications: Gastroesophageal reflux disease without esophagitis Take 1 capsule (20 mg) by mouth in the morning. Take before meals. 90 capsule 1 07/07/2024 10/05/2024 Active Start: 10-07-2023 End: 01-05-2024 take 1 capsule [...] stomach acid Start Date: 03/24/17 Status: Ordered Semaglutide,0.25 or 0.5MG/DO S, (Ozempic, 0.25 or 0.5 MG/DOSE,) 2 MG/3ML solution pen-injector (20 sources) Start: 07-07-2024 End: 09-29-2024 Semaglutide,0.25 or 0.5MG/DO S, (Ozempic, 0.25 or 0.5 MG/DOSE,) 2 MG/3ML solution pen-injector Indications: Type 2 diabetes mellitus without complications Inject 0.5 mg as directed 1 (one) time per week 9 mL 1 07/07/2024 09/29/2024 Active Start: 04-11-2024 End: 07-04-2024 Semaglutide,0.25 or 0.5MG/DO [...] 0, Prophylaxis Start Date: 03/24/17 Status: Ordered Completed/Discontinued Medications Medication Drug Class(es) Dates Sig (Normalized) Sig (Original) lisinopril 10 mg oral tablet (16 sources) Angiotensin Converting Enzyme Inhibitor Start: 07-07-2024 End: 10-05-2024 take 1 tablet by mouth once daily lisinopril 10 MG tablet Indications: Primary hypertension (CMS/HCC) Take 1 tablet (10 mg) by mouth Daily Take 10 mg by mouth Daily 90 tablet 07/07/2024 07/22/2024 Discontinued (Therapy completed) Start: 06-21-2024 take 1 tablet by ozzie th once daily lisinopril 10 MG tablet Take [...] blood pressure Start Date: 03/24/17 Status: Ordered End: 07-22-2024 take 1 tablet by mouth once daily lisinopril 5 MG tablet Indications: Hypertension Take 5 mg by mouth Daily 07/22/2024 Discontinued (Therapy completed) pioglitazone 15 mg oral tablet (20 sources) Peroxisome Proliferator Receptor alpha Agonist, Peroxisome Proliferator Receptor gamma Agonist, Thiazolidinedione Start: 04-18-2024 End: 11-15-2024 take 1 tablet by mouth once daily pioglitazone (Actos) 15 MG tablet Indications: Type 2 diabetes mellitus without complications Take 1 tablet (15 mg) by mouth Daily 90 tablet 1 07/07/2024 08/17/2024 Discontinued Start: 10-07-2023 End: 01-05-2024 take 1 tablet by mouth once daily pioglitazone (Actos) 15 MG tablet Indications: Type 2 diabetes mellitus without complications (CMS/HCC) Take 1 tablet (15 mg) by mouth Daily 90 tablet 1 10/07/2023 Active Problems Active Problems Problem Classification Problem Date Documented Date Episodic/Chronic Anxiety disorders (20 sources) Anxiety; Translations: [Generalized anxiety disorder] Onset: 11-19-2022 01-28-2024 Chronic Diabetes mellitus with complications (9 sources) Type 2 diabetes mellitus; Translations: [Type 2 diabetes mellitus with other specified complication] Onset: 07-22-2024 07-22-2024 Chronic Diabetes mellitus without complication (20 sources) Type 2 diabetes mellitus without complications; Translations: [Type 2 diabetes mellitus] Onset: 01-01-2018 Chronic Disorders of lipid metabolism (20 sources) Hyperlipidemia, unspecified; Translations: [Dyslipidemia] Onset: 01-01-2018 Chronic Diverticulosis and diverticulitis (20 sources) Diverticular disease; Translations: [Diverticulosis of intestine, part unspecified, without perforation or abscess without bleeding] Onset: 11-19-2022 11-19-2022 Chronic Esophageal disorders (20 sources) Gastroesophageal reflux disease; Translations: [Gastro-esophageal reflux disease without esophagitis] Onset: 04-02-2023 04-02-2023 Chronic Essential hypertension (20 sources) Hypertensive disorder; Translations: [Essential (primary) hypertension] Onset: 01-01-2018 04-02-2023 Chronic Nutritional deficiencies (20 sources) Vitamin D deficiency, unspecified; Translations: [Vitamin D deficiency] Onset: 04-02-2023 04-02-2023 Chronic Osteoarthritis (20 sources) Osteoarthritis of joint of right elbow; Translations: [Primary osteoarthritis, right elbow] Onset: 10-07-2023 10-07-2023 Chronic Osteoporosis (20 sources) Osteoporosis; Translations: [Age-related osteoporosis without current pathological fracture] Onset: 04-02-2023 07-07-2023 Chronic Other bone disease and musculoskeletal deformities (1 source) Other specified disorders of bone density and structure, unspecified site; Translations: [OTH D/O BONE DEN STRUCT UNS SITE] Onset: 07-18-2022 Episodic Other bone disease and musculoskeletal deformities (1 source) Disorder of bone; Translations: [Other specified disorders of bone density and structure, unspecified site] 07-20-2024 Episodic Other ear and sense organ disorders (20 sources) Hearing loss; Translations: [Unspecified hearing loss, unspecified ear] Onset: 11-19-2022 04-02-2023 Chronic Other ear and sense organ disorders (20 sources) Sensorineural hearing loss, bilateral; Translations: [Sensorineural hearing loss, bilateral] Onset: 11-25-2022 11-25-2022 Chronic Other endocrine disorders (1 source) Hyperparathyroidism, unspecified; Translations: [Hyperparathyroidism, unspecified] Onset: 06-05-2023 Chronic Other endocrine disorders (20 sources) Hyperparathyroidism; Translations: [Hyperparathyroidism, unspecified] Onset: 11-19-2022 Resolved: 07-07-2024 11-19-2022 Chronic Other nutritional; endocrine; and metabolic disorders (2 sources) Hypercalcemia; Translations: [Hypercalcemia] Onset: 06-05-2023 Chronic Other nutritional; endocrine; and metabolic disorders (1 source) Hypomagnesemia; Translations: [Hypomagnesemia] Onset: 06-05-2023 Chronic Other nutritional; endocrine; and metabolic disorders (20 sources) Body mass index 30+ - obesity; Translations: [Obesity, unspecified] Onset: 04-02-2023 04-02-2023 Chronic Other nutritional; endocrine; and metabolic disorders (20 sources) Hypomagnesemia; Translations: [Hypomagnesemia] Onset: 10-07-2023 10-07-2023 Chronic Other nutritional; endocrine; and metabolic disorders (10 sources) Unintentional weight loss; Translations: [Abnormal weight loss] Onset: 07-07-2024 07-07-2024 Episodic Residual codes; unclassified (1 source) Family history of malignant neoplasm of other organs or systems; Translations: [FAM HX MALIG NEOPLASM OTH ORGN/SYS] Onset: 07-12-2022 Episodic Spondylosis; intervertebral disc disorders; other back problems (20 sources) Arthropathy of lumbar facet joint; Translations: [Spondylosis without myelopathy or radiculopathy, lumbar region] Onset: 04-02-2023 04-02-2023 Chronic Spondylosis; intervertebral disc disorders; other back problems (10 sources) Pain in the coccyx; Translations: [Sacrococcygeal disorders, not elsewhere classified] Onset: 07-07-2024 07-07-2024 Episodic Thyroid disorders (20 sources) Hypothyroidism, unspecified; Translations: [Hypothyroidism] Onset: 10-02-2021 Chronic Urinary tract infections (4 sources) Urinary tract infection, site not specified; Translations: [UTI SITE NOT SPECIFIED] Onset: 08-12-2022 Episodic Past or Other Problems Problem Classification Problem Date Documented Da te Episodic/Chronic Allergic reactions (20 sources) Environmental allergy; Translations: [Other allergy status, other than to drugs and biological substances] Onset: 04-02-2023 04-02-2023 Episodic Deficiency and other anemia (20 sources) Anemia; Translations: [Anemia, unspecified] Onset: 04-02-2023 04-02-2023 Episodic Disorders of teeth and jaw (20 sources) Tooth disorder; Translations: [Disorder of teeth and supporting structures, unspecified] Onset: 04-02-2023 01-28-2024 Episodic Hemorrhoids (20 sources) Hemorrhoids; Translations: [Unspecified hemorrhoids] Onset: 11-19-2022 Resolved: 11-19-2022 11-19-2022 Episodic Mood disorders (20 sources) Recurrent major depressive episodes, mild ; Translations: [Major depressive disorder, recurrent, mild] Onset: 05-04-2023 Resolved: 07-07-2024 05-04-2023 Chronic Mood disorders (20 sources) Mood disorders Onset: 01-07-2024 01-07-2024 Mycoses (20 sources) Candidiasis; Translations: [Candidiasis, unspecified] Onset: 04-02-2023 04-02-2023 Episodic Nausea and vomiting (20 sources) Nausea and vomiting; Translations: [Nausea with vomiting, unspecified] Onset: 04-02-2023 Resolved: 07-07-2023 07-07-2023 Episodic Other and unspecified benign neoplasm (20 sources) History of polyp of colon; Translations: [History of colon polyps] Onset: 11-19-2022 Resolved: 11-19-2022 08-02-2022 Episodic Other and unspecified benign neoplasm (20 sources) Polyp of colon; Translations: [Polyp of colon] Onset: 11-19-2022 11-19-2022 Episodic Other bone disease and musculoskeletal deformities (20 sources) Osteopenia; Translations: [Other specified disorders of bone density and structure, unspecified site] Onset: 04-02-2023 Resolved: 07-07-2023 07-07-2023 Episodic Other connective tissue disease (20 sources) Lateral epicondylitis of right humerus; Translations: [Lateral epicondylitis, right elbow] Onset: 07-22-2023 07-22-2023 Episodic Other connective tissue disease (20 sources) Pain of right thigh; Translations: [Pain in right thigh] Onset: 04-02-2023 Resolved: 07-07-2023 07-07-2023 Episodic Other ear and sense organ disorders (20 sources) Tinnitus of right ear; Translations: [Tinnitus, right ear] Onset: 11-25-2022 11-25-2022 Episodic Other ear and sense organ disorders (20 sources) Ear problem; Translations: [Unspecified disorder of ear, unspecified ear] Onset: 04-02-2023 Resolved: 07-22-2024 04-02-2023 Episodic Other gastrointestinal disorders (20 sources) Heartburn; Translations: [Heartburn] Onset: 04-10-2018 Resolved: 11-19-2022 11-19-2022 Episodic Other hematologic conditions (20 sources) History of anemia; Translations: [Personal history of diseases of the blood and blood-forming organs and certain disorders involving the immune mechanism] Onset: 04-02-2023 04-02-2023 Episodic Other hereditary and degenerative nervous system conditions (20 sources) Restless legs; Translations: [Restless legs syndrome] Onset: 11-19-2022 Resolved: 07-07-2023 07-07-2023 Chronic Other inflammatory condition of skin (20 sources) Seborrheic dermatitis; Translations: [Seborrheic dermatitis, unspecified] Onset: 04-02-2023 04-02-2023 Episodic Other nervous system disorders (20 sources) Magnetic resonance imaging of brain abnormal; Translations: [White matter disease, unspecified] Onset: 12-25-2022 04-02-2023 Episodic Other nutritional; endocrine; and metabolic disorders (20 sources) Hypercalcemia; Translations: [Hypercalcemia] Onset: 11-19-2022 Resolved: 11-19-2022 11-19-2022 Chronic Other screening for suspected conditions (not mental disorders or infectious disease) (20 sources) Encounter for screening mammogram for malignant neoplasm of breast; Translations: [Patient encounter status] Onset: 07-04-2022 Episodic Residual codes; unclassified (20 sources) Family history of polyp of colon; Translations: [Family history of colonic polyps] Onset: 11-19-2022 Resolved: 11-19-2022 11-19-2022 Episodic Sprains and strains (20 sources) Strain of left trapezius muscle; Translations: [Strain of other muscles, fascia and tendons at shoulder and upper arm level, left arm, subsequent encounter] Onset: 04-02-2023 Resolved: 07-07-2023 07-07-2023 Episodic Unclassified (20 sources) Onset: 01-07-2024 01-07-2024 Viral infection (20 sources) Herpes zoster; Translations: [Zoster without complications] Onset: 04-02-2023 04-02-2023 Episodic Results Test Name Value Interpretation Reference Range Facility Magnesiumon 03-22-2024 Magnesium [Mass/Vol] 1.8 mg/dL Low 1.9-2.7 [facility] Comment on above: Performed By: #### P TH, RENAL, [id number], MG #### [address] Parathyroid Hormone Intacton 03-22-2024 Parathyroid Hormone Intact 67.5 pg/mL Normal 12- [facility] Comment on above: Result Comment: PERF ORMED BY: [place] [address] PATHOLOGIST HAT FORMING MACHINE OPERATOR KIRSTIN GUZMAN M.D. Performed By: #### P TH, RENAL, [id number], MG #### [place] [id number] [facility] Renal Function Panelon 03-22 Albumin [Mass/Vol] 4.0 g/dL Normal 3.5-5.7 [facility] Comment on above: Performed By: #### P TH, RENAL, [id number], MG #### [address] Anion gap [Moles/Vol] 12.1 mmol/L Normal 6.0-15.0 [facility] Comment on above: Performed By: #### P TH, RENAL, [id number], MG #### [address] Calcium [Mass/Vol] 10.3 mg/dL Normal 8.6-10.3 [facility] Comment on above: Performed By: #### P TH, RENAL, [id number], MG #### [address] Chloride [Moles/Vol] 101 mmol/L Normal 98-107 [facility] Comment on above: Performed By: #### P TH, RENAL, [id number], MG #### [address] CO2 [Moles/Vol] 30.6 mmol/L Normal 21.0-31.0 [facility] Comment on above: Performed By: #### P TH, RENAL, [id number], MG #### [address] Creatinine [Mass/Vol] 0.76 mg/dL Normal 0.60-1.20 [facility] Comment on above: Performed By: #### P TH, RENAL, [id number], MG #### [address] GFR/1.73 sq M.predicted MDRD (S/P/Bld) [Vol rate/Area] mL/min/{1.73_m2} Normal [facility] Comment on above: Performed By: #### P TH, RENAL, [id number], MG #### [address] Glucose [Mass/Vol] 108 mg/dL High 70-100 [facility] Comment on above: Result Comment: [place] Glucose Reference Range is dependent on time and content of last meal. Glucose of more than 200 mg/dL in a nonstressed, ambulatory subject supports the diagnosis of Diabetes Mellitus. ADA recommended reference range Performed By: #### P TH, RENAL, [id number], MG #### [address] Phosphate [Mass/Vol] 3.7 mg/dL Normal 2.5-4.5 [facility] Comment on above: Performed By: #### P TH, RENAL, [id number], MG #### [address] Potassium [Moles/Vol] 4.7 mmol/L Normal 3.5-5.1 [facility] Comment on above: Performed By: #### P TH, RENAL, [id number], MG #### [address] Sodium [Moles/Vol] 139 mmol/L Normal 136-145 [facility] Comment on above: Performed By: #### P TH, RENAL, [id number], MG #### [address] Urea nitrogen [Mass/Vol] 13 mg/dL Normal 7-25 [facility] Comment on above: Performed By: #### P TH, RENAL, [id number], MG #### [address] Vitamin D 25 Hydroxy Totalon 03-22-2024 Vitamin D 25 Hydroxy Total 34.5 ng/mL Normal 30-100 [facility] Comment on above: Result Comment: JUAN PABLO MIN D STATUS 25(OH)VITAMIN D RANGE (ng/mL) Deficient <20 Insufficient 20 to <30 Sufficient 30 to 100 Reference: Verito MF,Magali NC, Elvie-Vasile SCHWARZ, et al. Evaluation,treatment, and prevention of vitamin D deficiency; an Endocrine Society clinical practice guideline. JCEM. 2010; 96(7):1911-30. PERFORMED BY: [place] [address] PATHOLOGIST HAT FORMING MACHINE OPERATOR KIRSTIN GUZMAN M.D. Performed By: #### P TH, RENAL, [id number], MG #### [facility] [address] MLR HEMOGLOBIN A1Con 15 024 Glucose [Mass/Vol] 123 mg/dL [facility] HbA1c (Bld) [Mass fraction] 5.9 % 4.5 - 6.2 % [facility] Comment on above: ADA RECOMMENDED LIMI T 4.0 - 6.0 ADA THERAPEUTIC TARGET < 7.0 ACTION SUGGESTED > 7.0 [facility] Albumin [Mass/volume] in Ser um or Plasma by Bromocresol green (BCG) dye binding methoOrdered By: Jean Quick on 09-25-2023 Albumin BCG dye [Mass/Vol] 4.2 g/dL 3.5-5.7 [facility] Calcium [Mass/volume] in Ser um or PlasmaOrdered By: Jean Quick on 09-25-2023 Calcium [Mass/Vol] 10.3 mg/dL Normal 8.6-10.3 [facility] Comment on above: Performed By: #### V [id number], MG, PTH, RENAL #### [facility] [address] [place] [address] [place] Carbon dioxide, total [Moles /volume] in Serum or PlasmaOrdered By: Jean Quick on 09-25-2023 CO2 [Moles/Vol] 29.4 mmol/L Normal 21.0-31.0 [facility] Comment on above: Performed By: #### V [id number], MG, PTH, RENAL #### [facility] [address] [place] [address] [place] Chloride [Moles/volume] in S rosalind or PlasmaOrdered By: Jean Quick on 09-25-2023 Chloride [Moles/Vol] 103 mmol/L Normal 98-107 [facility] Comment on above: Performed By: #### V [id number], MG, PTH, RENAL #### [facility] [address] [place] [address] [place] Creatinine [Mass/volume] in Serum or PlasmaOrdered By: Jean Quick on 09-25-2023 Creatinine [Mass/Vol] 0.75 mg/dL Normal 0.60-1.20 [facility] Comment on above: Performed By: #### V [id number], MG, PTH, RENAL #### [facility] [address] Glucose [Mass/volume] in Ser um or PlasmaOrdered By: Jean Quick on 09-25-2023 Glucose [Mass/Vol] 108 mg/dL High 70-100 [facility] Comment on above: ADA recommended refe rence rangeRandom Glucose Reference Range is dependent on time and content of last meal. Glucose of more than 200 mg/dL in a nonstressed, ambulatory subject supports the diagnosis of Diabetes Mellitus. Result Comment: [place] [facility] Glucose Reference Range is dependent on time and content of last meal. Glucose of more than 200 mg/dL in a nonstressed, ambulatory subject supports the diagnosis of Diabetes Mellitus. ADA recommended reference range Performed By: #### V [id number], MG, PTH, RENAL #### [facility] [address] Magnesium [Mass/volume] in S rosalind or PlasmaOrdered By: Jean Quick on 09-25-2023 Magnesium [Mass/Vol] 1.8 mg/dL Low 1.9-2.7 [facility] Comment on above: Performed By: #### V [id number], MG, PTH, RENAL #### [facility] [address] [place] [address] No Panel InformationOrdered By: Jean Quick on 09-25-2023 Estimated GFR (CKD-EPI) > 60.0 mL/Min [facility] Creatinine Clearance (Chem N/A [facility] Parathyrin.intact [Mass/volu me] in Serum or PlasmaOrdered By: Jean Quick on 09-25-2023 Parathyrin.intact [Mass/Vol] 74.4 pg/mL [facility] Parathyroid Hormone Intacton 09-25-2023 Parathyroid Hormone Intact 74.4 pg/mL Normal [facility] Comment on above: Result Comment: PERF ORMED BY: [place] [address] PATHOLOGIST HAT FORMING MACHINE OPERATOR EZEQUIEL FIGUEREDO M.D. Performed By: #### V [id number], MG, PTH, RENAL #### [address] Phosphate [Mass/volume] in S rosalind or PlasmaOrdered By: Jean Quick on 09-25-2023 Phosphate [Mass/Vol] 3.3 mg/dL Normal 2.5-4.5 [facility] Comment on above: Performed By: #### V [id number], MG, PTH, RENAL #### [address] Potassium [Moles/volume] in Serum or PlasmaOrdered By: Jean Quick on 09-25-2023 Potassium [Moles/Vol] 4.3 mmol/L Normal 3.5-5.1 [facility] Comment on above: Performed By: #### V [id number], MG, PTH, RENAL #### [address] Renal Function Panelon 09-24 Albumin [Mass/Vol] 4.2 g/dL Normal 3.5-5.7 [facility] Comment on above: Performed By: #### V [id number], MG, PTH, RENAL #### [address] GFR/1.73 sq M.predicted MDRD (S/P/Bld) [Vol rate/Area] mL/min/{1.73_m2} Normal [facility] Comment on above: Performed By: #### V [id number], MG, PTH, RENAL #### [address] Serum or plasma anion gap de terminationOrdered By: Jean Quick on 09-25-2023 Anion gap [Moles/Vol] 11.9 mmol/L Normal 6.0-15.0 [facility] Comment on above: Performed By: #### V [id number], MG, PTH, RENAL #### [facility] [address] [place] [id number] [place] Sodium [Moles/volume] in Ser um or PlasmaOrdered By: Jean Quick on 09-25-2023 Sodium [Moles/Vol] 140 mmol/L Normal 136-145 [facility] Comment on above: Performed By: #### V [id number], MG, PTH, RENAL #### [facility] [address] Urea nitrogen [Mass/volume] in Serum or PlasmaOrdered By: Jean Quick on 09-25-2023 Urea nitrogen [Mass/Vol] 11 mg/dL Normal 7-25 [facility] Comment on above: Performed By: #### V [id number], MG, PTH, RENAL #### [facility] [address] [place] [address] Vitamin D 25 Hydroxy Totalon 09-25-2023 Vitamin D 25 Hydroxy Total 36.4 ng/mL Normal 30-100 [facility] Comment on above: Result Comment: JUAN PABLO MIN D STATUS 25(OH)VITAMIN D RANGE (ng/mL) Deficient <20 Insufficient 20 to <30 Sufficient 30 to 100 Reference: Magali Oliveros, Yumiko SCHWARZ, et al. Evaluation,treatment, and prevention of vitamin D deficiency; an Endocrine Society clinical practice guideline. JCEM. 2010; 96(7):1911-30. PERFORMED BY: [place] [address] PATHOLOGIST HAT FORMING MACHINE OPERATOR EZEQUIEL FIGUEREDO M.D. Performed By: #### V [id number], MG, PTH, RENAL #### [facility] [address] [place], [place] [id number] [facility] Vitamin D+Metabolites [Mass/ volume] in Serum or PlasmaOrdered By: Jean Quick on 09-25-2023 Vitamin D+Metabolites [Mass/Vol] 36.4 ng/mL 30-100 [facility] Comment on above: VITAMIN D STATUS 25( [place])VITAMIN D RANGE (ng/mL) Deficient <20 Insufficient 20 to <30Sufficient 30 to 100Reference: Magali Oliveros NC, Yumiko SCHWARZ, et al. Evaluation,treatment, and prevention of vitamin D deficiency; an Endocrine Society clinical practice guideline. JCEM. 2010; 96(7):1911-30. CALCIUMon 06-05-2023 Calcium [Mass/Vol] 10.3 mg/dL Normal 8.5-10.5 [facility] Comment on above: Performed By: #### 1 7861-6, 33596-9, 2730-8, 48808-3 #### [facility] ([id number]) [address], [address] [place] [address] MAGNESIUMon 06-05-2023 Magnesium [Mass/Vol] 1.7 mg/dL Low 1.8-2.6 [facility] Comment on above: Performed By: #### 1 7861-6, 64799-1, 2730-8, 93549-6 #### [facility] ([id number]) [address], [address] [place] [address] Parathyrin.intact [Mass/Vol] on 06-05-2023 PTH INTACT 71 pg/mL Normal 12-88 [facility] Comment on above: Performed By: #### 1 7861-6, 74700-5, 2730-8, 08162-5 #### [facility] ([id number]) [address], [address] [place] [address] RENAL PANELon 06-05-2023 Albumin [Mass/Vol] 4.3 g/dL Normal 3.2-5.3 [facility] Comment on above: Performed By: #### R ENAL #### [facility] ([id number]) [address], [address] [place] [address] Anion gap [Moles/Vol] 8 mmol/L Normal 5-15 [facility] Comment on above: Performed By: #### R ENAL #### [facility] ([id number]) [address], [address] [place] [address] Calcium [Mass/Vol] 10.6 mg/dL High 8.5-10.5 [facility] Comment on above: Performed By: #### R ENAL #### [facility] ([id number]) [address], [address] [place] [address] Chloride [Moles/Vol] 98 mmol/L Normal 98-109 [facility] Comment on above: Performed By: #### R ENAL #### [facility] ([id number]) [address] [address] [place] [address] CO2 [Moles/Vol] 31 mmol/L Normal 22-32 [facility] Comment on above: Performed By: #### R ENAL #### [facility] ([id number]) [address] [address] [place] [address] Creatinine [Mass/Vol] 0.82 mg/dL Normal 0.40-1.00 [facility] Comment on above: Result Comment: METH OD TRACEABLE TO IDMS STANDARD Performed By: #### R ENAL #### [facility] ([id number]) [address] [address] [place] [address] GFR/1.73 sq M.predicted among non-blacks MDRD (S/P/Bld) [Vol rate/Area] 77 mL/min/{1.73_m2} Normal >59 [facility] Comment on above: Result Comment: Reported eGFR is based on the CKD-EPI 2020 equation that does not use a race coefficient. Performed By: #### R ENAL #### [facility] ([id number]) [address] [address] [place] [address] Glucose [Mass/Vol] 156 mg/dL High 65-99 [facility] Comment on above: Performed By: #### R ENAL #### [facility] ([id number]) [address] [address] [place] [address] Phosphate [Mass/Vol] 3.2 mg/dL Normal 2.4-4.9 [facility] Comment on above: Performed By: #### R ENAL #### [facility] ([id number]) [address] [place] [address] Potassium [Moles/Vol] 4.2 mmol/L Normal 3.5-5.0 [facility] Comment on above: Performed By: #### R ENAL #### [facility] ([id number]) [address], [address] [place] [address] Sodium [Moles/Vol] 137 mmol/L Normal 134-146 [facility] Comment on above: Performed By: #### R ENAL #### [facility] ([id number]) [address] [place] [address] Urea nitrogen [Mass/Vol] 11 mg/dL Normal 5-27 [facility] Comment on above: Performed By: #### R ENAL #### [facility] ([id number]) [address] [place] [address] Vitamin D+Metabolites [Mass/ Vol]on 06-05-2023 VITAMIN D 25 HYD TOT 36.7 ng/mL Normal 30-100 [facility] Comment on above: Result Comment: Vitamin D status 25 [place] Vitamin D Deficiency <20 ng/mL Insufficiency 20-29 ng/mL Sufficiency 30-100 ng/mL Toxicity >100 ng/mL NOTE: A pediatric reference range has not been established by the roping machine tender of this kit. The [place] [employer] recommends a Vitamin D level of = or >20ng/mL in infants and children. Performed By: #### 1 7861-6, 24010-6, 2731-8, 12299-8 #### [facility] ([id number]) [address] [place] [address] Albumin [Mass/volume] in Ser um or Plasma by Bromocresol green (BCG) dye binding methoOrdered By: Jean Quick on 03-26-2023 Albumin BCG dye [Mass/Vol] 4.3 g/dL 3.5-5.7 [facility] Calcium [Mass/volume] in Ser um or PlasmaOrdered By: Jean Quick on 03-26-2023 Calcium [Mass/Vol] 10.5 mg/dL 8.6-10.3 [facility] Carbon dioxide, total [Moles /volume] in Serum or PlasmaOrdered By: Jean Quick on 03-26-2023 CO2 [Moles/Vol] 29.4 mmol/L 21.0-31.0 [facility] Chloride [Moles/volume] in S rosalind or PlasmaOrdered By: Jean Quick on 03-26-2023 Chloride [Moles/Vol] 104 mmol/L 98-107 [facility] Creatinine [Mass/volume] in Serum or PlasmaOrdered By: Jean Quick on 03-26-2023 Creatinine [Mass/Vol] 0.79 mg/dL 0.60-1.20 [facility] Glucose [Mass/volume] in Ser um or PlasmaOrdered By: Jean Quick on 03-26-2023 Glucose [Mass/Vol] 136 mg/dL 70-100 [facility] Comment on above: ADA recommended refe rence rangeRandom Glucose Reference Range is dependent on time and content of last meal. Glucose of more than 200 mg/dL in a nonstressed, ambulatory subject supports the diagnosis of Diabetes Mellitus. Magnesium [Mass/volume] in S rosalind or PlasmaOrdered By: Jean Quick on 03-26-2023 Magnesium [Mass/Vol] 1.6 mg/dL 1.9-2.7 [facility] No Panel InformationOrdered By: Jean Quick on 03-26-2023 Estimated GFR (CKD-EPI) > 60.0 mL/Min [facility] Creatinine Clearance (Chem N/A [facility] Parathyrin.intact [Mass/volu me] in Serum or PlasmaOrdered By: Jean Quick on 03-26-2023 Parathyrin.intact [Mass/Vol] 105.1 pg/mL 12-88 [facility] Phosphate [Mass/volume] in S rosalidn or PlasmaOrdered By: Jean Quick on 03-26-2023 Phosphate [Mass/Vol] 3.1 mg/dL 2.5-4.5 [facility] Potassium [Moles/volume] in Serum or PlasmaOrdered By: Jean Quick on 03-26-2023 Potassium [Moles/Vol] 4.8 mmol/L 3.5-5.1 [facility] Serum or plasma anion gap de terminationOrdered By: Jean Quick on 03-26-2023 Anion gap [Moles/Vol] 11.4 mmol/L 6.0-15.0 [facility] Sodium [Moles/volume] in Ser um or PlasmaOrdered By: Jean Quick on 03-26-2023 Sodium [Moles/Vol] 140 mmol/L 136-145 [facility] Urea nitrogen [Mass/volume] in Serum or PlasmaOrdered By: Jean Quick on 03-26-2023 Urea nitrogen [Mass/Vol] 8 mg/dL 7-25 [facility] Vitamin D+Metabolites [Mass/ volume] in Serum or PlasmaOrdered By: Jean Quick on 03-26-2023 Vitamin D+Metabolites [Mass/Vol] 38.1 ng/mL 30-100 [facility] Comment on above: VITAMIN D [...] 7 years(2029) due to tubular adenoma Normal [facility] XR DEXA BONE DENSITYon 09-02 [...] GEORGINA HATCH Date: 2022-09-02 13:17 Normal [facility] Outside Colonoscopyon 2022 Outside Colonoscopy [id number]:127 Normal [facility] Physician Orderon 08-27-2022 Physician Order [id number]:127 Normal [facility] CULTURE URINEon 08-12-2022 CULTURE URINE Culture Observations: NO GROWTH. Normal [facility] Comment on above: Performed By: #### T ASIA, FT3 #### [facility] [address] [place] [address] Dr. Herve Mahcado UA RANDOM W/MICROSCOPICon BACTERIA NONE SEEN Normal NONE SEEN [facility] Comment on above: Performed By: #### T ASIA, FT3 #### [facility] [address] [address] [address] Herve Machado Bilirubin Ql (U) Negative Normal NEGATIVE [facility] Comment on above: Performed By: #### T SH, FT3 #### [facility] [address] [place] [address] Dr. Herve Machado CAST NONE SEEN Normal NONE SEEN [facility] Comment on above: Performed By: #### T SH, FT3 #### [facility] [address] [place] [address] Dr. Herve Machado Clarity (U) CLEAR Normal CLEAR [facility] Comment on above: Performed By: #### T SH, FT3 #### [facility] [address] [place] [address] Dr. Herve Machado Color (U) LT. YELLOW Normal YELLOW [facility] Comment on above: Performed By: #### T SH, FT3 #### [facility] [address] [place] [address] Dr. Herve Machado Crystals LM Nom (Urine sed) NONE SEEN Normal NONE SEEN [facility] Comment on above: Performed By: #### T SH, FT3 #### [facility] [address] [place] [address] Dr. Herve Machado Epithelial cells LM Ql (Urine sed) RARE Normal NONE SEEN /RARE [facility] Comment on above: Performed By: #### T SH, FT3 #### [facility] [address] [place] [address] Dr. Herve Machado Glucose Ql (U) 500 mg/dl Abnormal NEGATIVE [facility] Comment on above: Performed By: #### T SH, FT3 #### [facility] [address] [place] [address] Dr. Herve Machado Hemoglobin Ql (U) Negative Normal NEGATIVE [facility] Comment on above: Performed By: #### T SH, FT3 #### [facility] [address] [place] [address] Dr. Herve Machado Ketones Ql (U) Negative Normal NEGATIVE [facility] Comment on above: Performed By: #### T SH, FT3 #### [facility] [address] [place] [address] Dr. Herve Machado LEUKOCYTES Negative Normal NEGATIVE [facility] Comment on above: Performed By: #### T SH, FT3 #### [facility] [address] [place] [address] Dr. Herve Machado MUCOUS NONE SEEN Normal NONE SEEN [facility] Comment on above: Performed By: #### T SH, FT3 #### [facility] [address] [place] [address] Dr. Herve Machado Nitrite Ql (U) Negative Normal NEGATIVE [facility] Comment on above: Performed By: #### T SH, FT3 #### [facility] [address] [place] [address] Dr. Herve Machado pH (U) 5.0 [pH] Normal 5-9 [facility] Comment on above: Performed By: #### T , FT3 #### [facility] [address] [place] [address] Dr. Herve Machado RBC 0-2 Normal 0-2 [facility] Comment on above: Performed By: #### T , FT3 #### [facility] [address] [place] [address] Dr. Herve Machado SPEC GRAVITY 1.020 Normal 1.005-<=1.025 [facility] Comment on above: Performed By: #### T , FT3 #### [facility] [address] [place] [address] Dr. Herve Machado UA PROTEIN Negative Normal NEGATIVE/ TRACE [facility] Comment on above: Performed By: #### T , FT3 #### [facility] [address] [place] [address] Dr. Herve Machado Urobilinogen Qn (U) 0.2 {Connie'U}/dL Normal 0.2 - 1. 0 [facility] Comment on above: Performed By: #### T , FT3 #### [facility] [address] [place] [address] Dr. Herve Machado WBC NONE SEEN Normal NONE SEEN [facility] Comment on above: Performed By: #### T SH, FT3 #### [facility] [address] [place] [address] Dr. Herve Machado Consent for Procedure/Surger yon 08-05-2022 Consent for Procedure/Surgery [id number]#[id number]:127 Normal [facility] Ambulatory Visit Summaryon 0 08-02-2022 [...] See instructions Prior to colonoscopy. Pickup at [facility] 4497 Unchanged alendronate (alendronate 35 mg oral tablet) [...] physician if questions or concerns Pharmacy Information [facility] 1429: [address] [place], [place] [id number] [phone] Allergies penicillins (unknown) Problems Ongoing - Any [...] including vitamins, herbs, eye drops, creams, and fvhz-rmt-wohcxce medicines. ? Any problems you or family [...] anything starting (more content not included)... Normal [facility] Gastroenterology Office/Clin ic Noteon 08-02-2022 [...] in 2013 she had previous colonoscopy in [place] that showed polyps- no record to [...] 1 EA, Refill(s) 0, Prior to colonoscopy., [facility], 139.7, cm, 08/02/22 [...] 08/02/2022 Immunizations Vaccine Date Status SARS-CoV-2 (COVID-19) [id number] 04/23/2022 Recorded SARSCoV2 mRNA(tozinamer-tri s-sucros) vac 07/30/2021 [...] 02/06/2009 Recorded Normal [facility] Comment on above: Result Comment: Elec tronically [...] including vitamins, herbs, eye drops, creams, and mtef-rlw-qaincnh medicines. ? Any problems you or family [...] air t (more content not included)... Normal [facility] Provider Letteron 07-16-2022 Provider Letter July 16, 2022 EMILY ADORNO [address] [place] [phone] EIMLY ADORNO 1955 Dear Emily, We have been trying to reach you with no success. It is important that you return our call regarding your referral sent by your primary care physician to see our office upon receiving this letter. Also, at the time of your call, please provide us with your current information. Thank you for your prompt attention to this matter. Sincerely, [facility]. Normal [facility] CBC AUTO DIFFon 07-15-2022 BASO # 0.0 103/ul Normal 0.0-0.1 [facility] Comment on above: Performed By: #### C BC #### [facility] [address] [address] [address] Herve Machado Basophils/100 WBC (Bld) 0.4 % Normal 0.2-2.0 [facility] Comment on above: Performed By: #### C BC #### [facility] [address] [address] [address] Herve Machado EO # 0.2 103/ul Normal 0.0-0.7 [facility] Comment on above: Performed By: #### C BC #### [facility] [address] [address] [address] Herve Machado Eosinophils/100 WBC (Bld) 2.7 % Normal 0.9-7.0 [facility] Comment on above: Performed By: #### C BC #### [facility] [address] [address] [address] Herve Machado Erythrocyte distribution width (RBC) [Ratio] 12.3 % Normal 11.0-15.0 [facility] Comment on above: Performed By: #### C BC #### [facility] [address] [address] [address] Herve Machado Hematocrit (Bld) [Volume fraction] 43.8 % Normal 36.0-48.0 [facility] Comment on above: Performed By: #### C BC #### [facility] [address] [address] [address] Herve Machado Hemoglobin (Bld) [Mass/Vol] 14.1 g/dL Normal 12.0-16.0 [facility] Comment on above: Performed By: #### C BC #### [facility] [address] [address] [address] Herve Machado IG # 0.01 10e3/ul Normal 0.00-0.03 [facility] Comment on above: Performed By: #### C BC #### [facility] [address] [place] [address] Dr. Herve Machado IG % 0.1 % Normal 0.0-0.5 [facility] Comment on above: Performed By: #### C BC #### [facility] [address] [place] [address] Dr. Herve Machado LYMPH # 1.7 103/ul Normal 1.2-3.8 [facility] Comment on above: Performed By: #### C BC #### [facility] [address] [place] [address] Dr. Herve Machado Lymphocytes/100 WBC (Bld) 23.6 % Normal 20.5-60.0 [facility] Comment on above: Performed By: #### C BC #### [facility] [address] [place] [address] Dr. Herve Machado MANUAL DIFF REQ NO Normal [facility] Comment on above: Performed By: #### C BC #### [facility] [address] [place] [address] Dr. Herve Machado MCH (RBC) [Entitic mass] 31.1 pg Normal 26.7-34.0 [facility] Comment on above: Performed By: #### C BC #### [facility] [address] [place] [address] Dr. Herve Machado MCHC (RBC) [Mass/Vol] 32.2 g/dL Normal 29.9-35.2 [facility] Comment on above: Performed By: #### C BC #### [facility] [address] [place] [address] Dr. Herve Machado MCV (RBC) [Entitic vol] 96.5 fL Normal 81.0-99.0 [facility] Comment on above: Performed By: #### C BC #### The [facility] [address] [place] [address] Dr. Herve Machado MONO # 0.4 103/ul Normal 0.3-0.8 [facility] Comment on above: Performed By: #### C BC #### [facility] [address] [place] [address] Dr. Herve Machado Monocytes/100 WBC (Bld) 5.8 % Normal 1.7-12.0 [facility] Comment on above: Performed By: #### C BC #### [facility] [address] [address] [address] Herve Machado NEUT # 4.9 103/ul Normal 1.4-6.5 [facility] Comment on above: Performed By: #### C BC #### [facility] [address] [place] [address] Dr. Herve Machado Neutrophils/100 WBC (Bld) 67.4 % Normal 43.0-75.0 [facility] Comment on above: Performed By: #### C BC #### [facility] [address] [place] [address] Dr. Herve Machado Platelet mean volume (Bld) [Entitic vol] 9.9 fL Normal 9.5-13.5 [facility] Comment on above: Performed By: #### C BC #### [facility] [address] [place] [address] Dr. Herve Machado PLT 229 103/ul Normal 150-450 [facility] Comment on above: Performed By: #### C BC #### [facility] [address] [place] [address] Dr. Herve Machado RBC 4.54 106/ul Normal 4.20-5.40 [facility] Comment on above: Performed By: #### C BC #### [facility] [address] [place] [address] Dr. Herve Machado WBC 7.3 103/ul Normal 4.0-11.0 [facility] Comment on above: Performed By: #### C BC #### [facility] [address] [place] [address] Dr. Herve Machado GLYCOHEMOGLOBIN A1Con 2022 ADA RECOMMENDATION SEE BELOW Normal [facility] Comment on above: Result Comment: ADA RECOMMENDED LIMIT 4.0 - 6.0 ADA THERAPEUTIC TARGET < 7.0 ACTION SUGGESTED > 7.0 Performed By: #### T SH, FT3 #### [facility] [address] [address] [address] Herve Machado Glucose [Mass/Vol] 160 mg/dL Normal [facility] Comment on above: Performed By: #### T SH, FT3 #### [facility] [address] [address] [address] Herve Machado HbA1c (Bld) [Mass fraction] 7.2 % Critically high 4.5-6.2 [facility] Comment on above: Performed By: #### T SH, FT3 #### [facility] [address] [address] [address] Herve Machado LIPID PROFILEon 07-15-2022 CHOL-HDL RATIO NORM SEE BELOW Normal [facility] Comment on above: Result Comment: 3.3 - 4.4 LOW RISK 4.4 - 7.1 AVERAGE RISK 7.1 - 11.0 MODERATE RISK >11.0 HIGH RISK Performed By: #### T SH, FT3 #### [facility] [address] [place] [address] Dr. Herve Machado Cholesterol [Mass/Vol] 136 mg/dL Normal <=200 [facility] Comment on above: Performed By: #### T SH, FT3 #### [facility] [address] [place] [address] Dr. Herve Machado Cholesterol in HDL [Mass/Vol] 51 mg/dL Normal 40-60 [facility] Comment on above: Performed By: #### T SH, FT3 #### [facility] [address] [place] [address] Dr. Herve Machado Cholesterol in LDL [Mass/Vol] 68.6 mg/dL Normal [facility] Comment on above: Performed By: #### T SH, FT3 #### [facility] [address] [place] [address] Dr. Herve Machado Cholesterol.total/Choles terol in HDL [Mass ratio] 2.7 {ratio} Normal [facility] Comment on above: Performed By: #### T SH, FT3 #### [facility] [address] [place] [address] Dr. Herve Machado HDL NORMAL > or = 60 mg/dl - LOW CARDIOVASCULAR RISK <40 mg/dl - HIGH CARDIOVASCULAR RISK Normal [facility] Comment on above: Performed By: #### T SH, FT3 #### [facility] [address] [address] [address] Herve Machado LDL CALC NORMAL SEE BELOW Normal [facility] Comment on above: Result Comment: <100 mg/dl OPTIMAL 100 - 129 mg/dl NEAR OR ABOVE OPTIMAL 130 - 159 mg/dl BORDERLINE HIGH 160 - 189 mg/dl HIGH >190 mg/dl VERY HIGH Performed By: #### T SH, FT3 #### [facility] [address] [place] [address] Dr. Herve Machado Triglyceride [Mass/Vol] 82 mg/dL Normal <=150 [facility] Comment on above: Performed By: #### T SH, FT3 #### [facility] [address] [place] [address] Dr. Herve Machado VLDL CALC 16.4 mg/dL Normal [facility] Comment on above: Performed By: #### T SH, FT3 #### [facility] [address] [place] [address] Dr. Herve Machado MICROALBUMIN, RAND URon 06-20 mALB <1.3 Normal <=30.0 [facility] Comment on above: Performed By: #### T SH, FT3 #### [facility] [address] [place], [place] [id number] Dr. Herve Machado PROF 14(COMP METB)on 023 Albumin [Mass/Vol] 3.6 g/dL Normal 3.4-5.0 [facility] Comment on above: Performed By: #### T SH, FT3 #### [facility] [address] [place] [address] Dr. Herve Machado Albumin/Globulin [Mass ratio] 1.1 {ratio} Normal [facility] Comment on above: Performed By: #### T SH, FT3 #### [facility] [address] [place] [address] Dr. Herve Machado ALP [Catalytic activity/Vol] 64 U/L Normal 46-116 [facility] Comment on above: Performed By: #### T ASIA, FT3 #### [facility] [address] [place] [address] Dr. Herve Machado ALT [Catalytic activity/Vol] 21 U/L Normal 14-59 [facility] Comment on above: Performed By: #### T ASIA, FT3 #### [facility] [address] [place] [address] Dr. Herve Machado Anion gap [Moles/Vol] 11.2 mmol/L Normal [facility] Comment on above: Performed By: #### T ASIA, FT3 #### [facility] [address] [place] [address] Dr. Herve Machado AST [Catalytic activity/Vol] 18 U/L Normal 15-37 [facility] Comment on above: Performed By: #### T ASIA, FT3 #### [facility] [address] [place] [address] Dr. Herve Machado Bilirubin [Mass/Vol] 0.6 mg/dL Normal 0.2-1.0 [facility] Comment on above: Performed By: #### T ASIA, FT3 #### [facility] [address] [place] [address] Dr. Herve Machado Calcium [Mass/Vol] 10.2 mg/dL Critically high 8.5-10.1 [facility] Comment on above: Performed By: #### T ASIA, FT3 #### [facility] [address] [place] [address] Dr. Herve Machado Chloride [Moles/Vol] 107 mmol/L Normal 98-107 [facility] Comment on above: Performed By: #### T ASIA, FT3 #### [facility] [address] [place] [address] Dr. Herve Machado CO2 [Moles/Vol] 28.3 mmol/L Normal 21.0-32.0 [facility] Comment on above: Performed By: #### T ASIA, FT3 #### [facility] [address] [address] [address] Herve Machado Creatinine [Mass/Vol] 0.66 mg/dL Normal 0.55-1.02 [facility] Comment on above: Performed By: #### T SH, FT3 #### [facility] [address] [address] [address] Herve Machado EGFR-AF ALBANIAN >60 Normal >=60 [facility] Comment on above: Performed By: #### T SH, FT3 #### [facility] [address] [address] [address] Herve Machado EGFR-NON AF ALBANIAN >60 Normal >=60 [facility] Comment on above: Performed By: #### T SH, FT3 #### [facility] [address] [place] [address] Dr. Herve Machado Globulin (S) [Mass/Vol] 3.3 g/dL Normal [facility] Comment on above: Performed By: #### T SH, FT3 #### [facility] [address] [place] [address] Dr. Herve Machado Glucose [Mass/Vol] 154 mg/dL Critically high 74-106 [facility] Comment on above: Performed By: #### T ASIA, FT3 #### [facility] [address] [place] [address] Dr. Herve Machado Potassium [Moles/Vol] 4.5 mmol/L Normal 3.5-5.1 [facility] Comment on above: Performed By: #### T ASIA, FT3 #### [facility] [address] [place] [address] Dr. Herve Machado Protein [Mass/Vol] 6.9 g/dL Normal 6.4-8.2 [facility] Comment on above: Performed By: #### T SH, FT3 #### [facility] [address] [place] [address] Dr. Herve Machado Sodium [Moles/Vol] 142 mmol/L Normal 136-145 [facility] Comment on above: Performed By: #### T SH, FT3 #### [facility] [address] [place] [address] Dr. Herve Machado Urea nitrogen [Mass/Vol] 11.0 mg/dL Normal 7.0-18.0 [facility] Comment on above: Performed By: #### T , FT3 #### [facility] [address] [place] [address] Dr. Herve Machado Urea nitrogen/Creatinine [Mass ratio] 16.7 mg/mg Normal [facility] Comment on above: Performed By: #### T ASIA, FT3 #### [facility] [address] [place] [address] Dr. Herve Machado UA RANDOM W/MICROSCOPICon BACTERIA MODERATE Abnormal NONE SEEN [facility] Comment on above: Performed By: #### U AMIC #### [facility] [address] [place] [address] Dr. Herve Machado Bilirubin Ql (U) Negative Normal NEGATIVE [facility] Comment on above: Performed By: #### U AMIC #### [facility] [address] [place] [address] Dr. Herve Machado CAST NONE SEEN Normal NONE SEEN [facility] Comment on above: Performed By: #### U AMIC #### [facility] [address] [place] [address] Dr. Herve Machado Clarity (U) CLEAR Normal CLEAR [facility] Comment on above: Performed By: #### U AMIC #### [facility] [address] [place] [address] Dr. Herve Machado Color (U) LT. YELLOW Normal YELLOW [facility] Comment on above: Performed By: #### U AMIC #### [facility] [address] [place] [address] Dr. Herve Machado Crystals LM Nom (Urine sed) NONE SEEN Normal NONE SEEN [facility] Comment on above: Performed By: #### U AMIC #### [facility] [address] [place] [address] Dr. Herve Machado Epithelial cells LM Ql (Urine sed) FEW Abnormal NONE SEEN /RARE [facility] Comment on above: Performed By: #### U AMIC #### [facility] [address] [address] [address] Herve Machado Glucose Ql (U) Negative Normal NEGATIVE [facility] Comment on above: Performed By: #### U AMIC #### [facility] [address] [address] [address] Herve Machado Hemoglobin Ql (U) Negative Normal NEGATIVE [facility] Comment on above: Performed By: #### U AMIC #### [facility] [address] [address] [address] Herve Machado Ketones Ql (U) Negative Normal NEGATIVE [facility] Comment on above: Performed By: #### U AMIC #### [facility] [address] [address] [address] Herve Machado LEUKOCYTES Negative Normal NEGATIVE [facility] Comment on above: Performed By: #### U AMIC #### [facility] [address] [address] [address] Herve Machado MUCOUS NONE SEEN Normal NONE SEEN [facility] Comment on above: Performed By: #### U AMIC #### [facility] [address] [address] [address] Herve Machado Nitrite Ql (U) Positive Abnormal NEGATIVE [facility] Comment on above: Performed By: #### U AMIC #### [facility] [address] [place] [address] Dr. Herve Machado pH (U) 6.0 [pH] Normal 5-9 [facility] Comment on above: Performed By: #### U AMIC #### [facility] [address] [place] [address] Dr. Herve Machado RBC 0-2 Normal 0-2 [facility] Comment on above: Performed By: #### U AMIC #### [facility] [address] [place] [address] Dr. Herve Machado SPEC GRAVITY 1.010 Normal 1.005-<=1.025 [facility] Comment on above: Performed By: #### U AMIC #### [facility] [address] [place] [address] Dr. Herve Machado UA PROTEIN Negative Normal NEGATIVE/ TRACE [facility] Comment on above: Performed By: #### U AMIC #### [facility] [address] [address] [address] Herve Machado Urobilinogen Qn (U) 0.2 {Connie'U}/dL Normal 0.2 - 1. 0 [facility] Comment on above: Performed By: #### U AMIC #### [facility] [address] [address] [address] Herve Machado WBC 2-5 Abnormal NONE SEEN [facility] Comment on above: Performed By: #### U AMIC #### [facility] [address] [address] [address] Herve Machado Physician Referralon 023 Physician Referral [phone] [id number] Normal [facility] MG MAMM SCREEN 3D VEDA CADon 07-04-2022 MG MAMM SCREEN 3D VEDA CAD Patient: EMILY ADORNO Exam Date: 07/04/2022 : 1955 Gender:F Ordering : ARLEEN NIETO ADMINISTRATIVE RECEPTIONIST Admission #: [id number] Family : Order #: [id number] CLICK HERE TO VIEW EXAM RADIOLOGY REPORT [...] pancreatic cancer at age 64. LOCATION: [facility] BREAST COMPOSITION: Scattered areas fibroglandular density. [...] Meade MD on 07/04/2022 at 10:24 Normal [facility] GLYCOHEMOGLOBIN A1Con 2021 ADA RECOMMENDATION SEE BELOW Normal [facility] Comment on above: Result Comment: ADA RECOMMENDED LIMIT 4.0 - 6.0 ADA THERAPEUTIC TARGET < 7.0 ACTION SUGGESTED > 7.0 Performed By: #### A 1C #### [facility] [address] [place] [address] Dr. Herve Machado Glucose [Mass/Vol] 189 mg/dL Normal [facility] Comment on above: Performed By: #### A 1C #### [facility] [address] [place] [address] Dr. Herve Machado HbA1c (Bld) [Mass fraction] 8.2 % Critically high 4.5-6.2 [facility] Comment on above: Performed By: #### A 1C #### [facility] [address] [place] [address] Dr. Herve Machado FREE T3on 02-28-2022 FREE T3 2.44 pg/mlL Normal 2.18-3.98 [facility] Comment on above: Performed By: #### T SH, FT3 #### [facility] [address] [place] [address] Dr. Herve Machado FREE T4on 02-28-2022 Free T4 [Mass/Vol] 1.48 ng/dL Critically high 0.76-1.46 [facility] Comment on above: Performed By: #### T SH, FT3 #### [facility] [address] [place] [address] Dr. Herve Machado TSHon 02-28-2022 TSH 1.115 uIU/mL Normal 0.358-3.740 [facility] Comment on above: Performed By: #### T SH, FT3 #### [facility] [address] [place] [address] Dr. Herve Machado FREE T3on 11-27-2021 FREE T3 2.54 pg/mlL Normal 2.18-3.98 [facility] Comment on above: Performed By: #### T SH, FT3 #### [facility] [address] [place] [address] Dr. Herve Machado FREE T4on 11-27-2021 Free T4 [Mass/Vol] 1.85 ng/dL Critically high 0.76-1.46 [facility] Comment on above: Performed By: #### T SH, FT3 #### [facility] [address] [place] [address] Dr. Herve Machado TSHon 11-27-2021 TSH 0.228 uIU/mL Critically low 0.358-3.740 [facility] Comment on above: Performed By: #### T SH, FT3 #### [facility] [address] [place] [address] Dr. Herve Machado FREE T3on 10-25-2021 FREE T3 2.50 pg/mlL Normal 2.18-3.98 [facility] Comment on above: Performed By: #### T SH, FT3 #### [facility] [address] [place] [address] Dr. Herve Machado FREE T4on 10-25-2021 Free T4 [Mass/Vol] 1.61 ng/dL Critically high 0.76-1.46 [facility] Comment on above: Performed By: #### T SH, FT3 #### [facility] [address] [place] [address] Dr. Herve Machado TSHon 10-25-2021 TSH 1.949 uIU/mL Normal 0.358-3.740 [facility] Comment on above: Performed By: #### T SH, FT3 #### [facility] [address] [place] [address] Dr. Herve Machado FREE T4on 09-28-2021 Free T4 [Mass/Vol] 1.50 ng/dL Critically high 0.76-1.46 [facility] Comment on above: Performed By: #### T SH, FT3 #### [facility] [address] [place] [address] Dr. Herve Machado LIPID PROFILEon 09-28-2021 CHOL-HDL RATIO NORM SEE BELOW Normal [facility] Comment on above: Result Comment: 3.3 - 4.4 LOW RISK 4.4 - 7.1 AVERAGE RISK 7.1 - 11.0 MODERATE RISK >11.0 HIGH RISK Performed By: #### L IPID, TSH #### [facility] [address] [address] [address] Herve Machado Cholesterol [Mass/Vol] 223 mg/dL Critically high <=200 [facility] Comment on above: Performed By: #### L IPID, TSH #### [facility] [address] [address] [address] Herve Machado Cholesterol in HDL [Mass/Vol] 53 mg/dL Normal 40-60 [facility] Comment on above: Performed By: #### L IPID, TSH #### [facility] [address] [address] [address] Herve Machado Cholesterol in LDL [Mass/Vol] 152.2 mg/dL Normal [facility] Comment on above: Performed By: #### L IPID, TSH #### [facility] [address] [address] [address] Herve Machado Cholesterol.total/Choles terol in HDL [Mass ratio] 4.2 {ratio} Normal [facility] Comment on above: Performed By: #### L IPID, TSH #### [facility] [address] [address] [address] Herve Machado HDL NORMAL > or = 60 mg/dl - LOW CARDIOVASCULAR RISK <40 mg/dl - HIGH CARDIOVASCULAR RISK Normal [facility] Comment on above: Performed By: #### L IPID, TSH #### [facility] [address] [address] [address] Herve Machado LDL CALC NORMAL SEE BELOW Normal [facility] Comment on above: Result Comment: <100 mg/dl OPTIMAL 100 - 129 mg/dl NEAR OR ABOVE OPTIMAL 130 - 159 mg/dl BORDERLINE HIGH 160 - 189 mg/dl HIGH >190 mg/dl VERY HIGH Performed By: #### L IPID, TSH #### [facility] [address] [address] [address] Herve Machado Triglyceride [Mass/Vol] 89 mg/dL Normal <=150 [facility] Comment on above: Performed By: #### L IPID, TSH #### [facility] [address] [place] [address] Dr. Herve Machado VLDL CALC 17.8 mg/dL Normal [facility] Comment on above: Performed By: #### L IPID, TSH #### [facility] [address] [address] [address] Herve Machado TSHon 09-28-2021 TSH 1.423 uIU/mL Normal 0.358-3.740 [facility] Comment on above: Performed By: #### T SH, FT3 #### [facility] [address] [place] [address] Dr. Herve Machado TSH RANGE SEE BELOW Normal [facility] Comment on above: Result Comment: <0.3 4 UIU/ml HYPERTHYROID 0.34-5.60 UIU/ml EUTHYROID >5.60 UIU/ml HYPOTHYROID Performed By: #### T SH, FT3 #### [facility] [address] [place] [address] Dr. Herve Machado Vital Signs Date Time Vital Sign Value Performing Clinician Alexis dobson 08-17-2024 08:57-0400 Body mass index (BMI) [Ratio] 29.01 kg/m2 Stella Nieto [employer]PERINT[employer]ENT Work Phone: [facility] 08-17-2024 08:57-0400 Body temperature 98.1 [degF] Stella Nieto [employer] SUPERINTENDENT Work Phone: [facility] 08-17-2024 08:57-0400 Body weight 56.61 kg Stella Nieto [employer] SUPERINTENDENT Work Phone: [facility] 08-17-2024 08:57-0400 Diastolic blood pressure 72 mm[Hg] Stella Nieto [employer] SUPERINTENDENT Work Phone: [facility] 08-17-2024 08:57-0400 Heart rate 81 /min Stella Aichholz [employer] SUPERINTENDENT Work Phone: [facility] 08-17-2024 08:57-0400 Respiratory rate 18 /min Stella Vanessaholz [employer] SUPERINTENDENT Work Phone: [facility] 08-17-2024 08:57-0400 SaO2% (BldA) [Mass fraction] 99 % Stella Dedehholz [employer] SUPERINTENDENT Work Phone: [facility] 08-17-2024 08:57-0400 Systolic blood pressure 112 mm[Hg] Stella Aichholz [employer] SUPERINTENDENT Work Phone: [facility] 07-22-2024 13:51-0400 Body height 139.7 cm Stella Aichholz [employer]PERINTENDENT Work Phone: [facility] 07-22-2024 13:51-0400 Body mass index (BMI) [Ratio] 28.68 kg/m2 Stella Aichholz [employer] SUPERINTENDENT Work Phone: [facility] 07-22-2024 13:51-0400 Body temperature 98.71 [degF] Stella Dedehholz [employer] SUPERINTENDENT Work Phone: [facility] 07-22-2024 13:51-0400 Body weight 55.97 kg Stella Aichholz [employer] SUPERINTENDENT Work Phone: [facility] 07-22-2024 13:51-0400 Diastolic blood pressure 76 mm[Hg] Stella Aichholz [employer] SUPERINTENDENT Work Phone: [facility] 07-22-2024 13:51-0400 Heart rate 112 /min Stella Aichholz [employer] SUPERINTENDENT Work Phone: [facility] 07-22-2024 13:51-0400 Respiratory rate 18 /min Stella Aichholz [employer] SUPERINTENDENT Work Phone: [facility] 07-22-2024 13:51-0400 SaO2% (BldA) [Mass fraction] 98 % Stella Aichholz [employer] SUPERINTENDENT Work Phone: [facility] 07-22-2024 13:51-0400 Systolic blood pressure 118 mm[Hg] Stella Aichholz [employer] SUPERINTENDENT Work Phone: [facility] 03-29-2024 09:10-0500 Body height 139.7 cm Jean Quick MD Work Phone: [facility] 03-29-2024 09:10-0500 Body mass index (BMI) [Ratio] 31.38 kg/m2 Jean Quick MD Work Phone: [facility] 03-29-2024 09:10-0500 Body weight 61.24 kg Jean Quick MD Work Phone: [facility] 03-29-2024 09:10-0500 Diastolic blood pressure 64 mm[Hg] Jean Quick MD Work Phone: [facility] 03-29-2024 09:10-0500 Heart rate 100 /min Jean Quick MD Work Phone: [facility] 03-29-2024 09:10-0500 Respiratory rate 20 /min Jean Quick MD Work Phone: [facility] 03-29-2024 09:10-0500 Systolic blood pressure 124 mm[Hg] Jean Quick MD Work Phone: [facility] 01-07-2024 09:06-0400 Body mass index (BMI) [Ratio] 31.75 kg/m2 Stella Gerson [employer] SUPERINTENDENT Work Phone: [facility] 01-07-2024 09:06-0400 Body temperature 98.29 [degF] Stella Gerson [employer] SUPERINTENDENT Work Phone: [facility] 01-07-2024 09:06-0400 Body weight 61.96 kg Stella Gerson [employer] SUPERINTENDENT Work Phone: [facility] 01-07-2024 09:06-0400 Diastolic blood pressure 76 mm[Hg] Stella Jessez [employer] SUPERINTENDENT Work Phone: [facility] 01-07-2024 09:06-0400 Heart rate 107 /min Stella Gerson [employer] SUPERINTENDENT Work Phone: [facility] 01-07-2024 09:06-0400 Respiratory rate 19 /min Stella Gerson [employer] SUPERINTENDENT Work Phone: [facility] 01-07-2024 09:06-0400 SaO2% (BldA) [Mass fraction] 97 % Stella Gerson [employer] SUPERINTENDENT Work Phone: [facility] 01-07-2024 09:06-0400 Systolic blood pressure 116 mm[Hg] Stella Gerson [employer] SUPERINTENDENT Work Phone: [facility] Healthcare Encounters Encounter Date Encounter Type Care Provider Facility Start: 08-17-2024 End: 08-17-2024 Bamboo flowsheet Stella Gerson [employer] SUPERINTENDENT Work Phone: [facility] Start: 08-17-2024 End: 08-17-2024 Bamboo flowsheet Stella Gerson [employer] SUPERINTENDENT Work Phone: [facility] Start: 08-17-2024 End: 08-17-2024 Office outpatient visit 15 minutes Stella Gerson [employer] SUPERINTENDENT Work Phone: [facility] Comment on above: Primary hypertension (CMS/HCC) (Primary Dx); Environmental allergies; Anxiety in acute stress reaction (CMS/HCC); Dental disease Start: 08-17-2024 End: 08-17-2024 Refill Stellaeverette Nieto [employer] SUPERINTENDENT Work Phone: [facility] Comment on above: Type 2 diabetes leah itus without complications Start: 07-22-2024 End: 07-22-2024 Bamboo flowsheet Stella Gerson [employer] SUPERINTENDENT Work Phone: [facility] Start: 07-22-2024 End: 07-22-2024 Bamboo flowsheet Stella Vanessaholz [employer] SUPERINTENDENT Work Phone: [facility] Start: 07-22-2024 End: 07-22-2024 Office outpatient visit 25 minutes Stella Gerson [employer] SUPERINTENDENT Work Phone: [facility] Comment on above: Primary hypertension (CMS/HCC) (Primary Dx); Type 2 diabetes mellitus with other specified complication; Mixed hyperlipidemia (CMS/HCC); Weight loss, unintentional; Pain in the coccyx Start: 07-22-2024 End: 07-22-2024 ambulatory STELLA AICHHOLZ Not Available Start: 07-20-2024 End: 07-20-2024 Refill Stella Aichholz [employer] SUPERINTENDENT Work Phone: [facility] Comment on above: Other specified diso rders of bone density and structure, unspecified site Start: 07-07-2024 End: 07-07-2024 ambulatory STELLA AICHHOLZ Not Available Start: 06-24-2024 End: 06-24-2024 Orders Only Stella Aichholz [employer] SUPERINTENDENT Work Phone: [facility] Comment on above: Environmental allerg ies (Primary Dx) Start: 05-19-2024 End: 05-19-2024 Refill Stella Aichholz [employer] SUPERINTENDENT Work Phone: [facility] Comment on above: Type 2 diabetes leah itus without complications (CMS/HCC); Other specified anxiety disorders; Mild episode of recurrent major depressive disorder (HCC) (CMS/HCC) Start: 04-16-2024 End: 04-18-2024 Refill Stella Aichholz [employer] SUPERINTENDENT Work Phone: [facility] Comment on above: Type 2 diabetes leah itus without complications (CMS/HCC); Environmental allergies Start: 04-10-2024 End: 04-11-2024 Refill Stella Aichholz [employer] SUPERINTENDENT Work Phone: [facility] Comment on above: Type 2 diabetes leah itus without complications (CMS/HCC) Start: 03-29-2024 End: 03-29-2024 Bamboo flowsheet Jean Quick MD Work Phone: [facility] Start: 03-29-2024 End: 03-29-2024 Bamboo flowsheet Jean Quick MD Work Phone: [facility] Start: 03-29-2024 End: 03-29-2024 Office outpatient visit 25 minutes Jean Quick MD Work Phone: [facility] Comment on above: Hypercalcemia (Prima ry Dx); Vitamin D deficiency; Hypomagnesemia; Osteopenia of multiple sites Start: 03-29-2024 End: 03-29-2024 ambulatory JEAN QUICK Not Available Start: 03-22-2024 End: 03-22-2024 ambulatory Stella Nieto Facility:[facility] Start: 03-19-2024 End: 03-19-2024 Refill Stella Nieto [employer] SUPERINTENDENT Work Phone: [facility] Comment on above: Hypothyroidism, unsp ecified type (CMS/HCC) Start: 03-02-2024 End: 03-02-2024 Refill Melissa Olguin MA [facility] Comment on above: Type 2 diabetes leah itus without complications (CMS/HCC); Mixed hyperlipidemia (CMS/HCC) Start: 02-03-2024 End: 02-03-2024 Clinisync Result Encounter Stella Nieto [employer] SUPERINTENDENT Work Phone: [facility] External Department Unsolicited Start: 02-03-2024 End: 02-03-2024 Clinisync Result Encounter Stella Gerson [employer] SUPERINTENDENT Work Phone: [facility] External Department Unsolicited Start: 01-28-2024 End: 01-28-2024 Refill Stella Gerson [employer] SUPERINTENDENT Work Phone: [facility] Comment on above: Anxiety in acute str ess reaction (CMS/HCC) (Primary Dx); Dental disease Start: 01-07-2024 End: 01-07-2024 Bamboo flowsheet Stella Nieto [employer] SUPERINTENDENT Work Phone: [facility] Start: 01-07-2024 End: 01-07-2024 Bamboo flowsheet Stella Nieto [employer] SUPERINTENDENT Work Phone: [facility] Start: 01-07-2024 End: 01-07-2024 Patient encounter procedure Stella Aichholz [employer] SUPERINTENDENT Work Phone: [facility] Comment on above: Encounter for subseq uent [...] Start: 12-27-2023 End: 12-29-2023 Refill Stella Aichholz [employer] SUPERINTENDENT Work Phone: [facility] Comment on above: Hypothyroidism, unsp ecified type (CMS/HCC) Start: 10-07-2023 End: 10-07-2023 ambulatory STELLA AICHHOLZ Not Available Start: 09-25-2023 End: 09-25-2023 Patient encounter procedure Stella Aichholz Work Phone: [facility] [place] Work Phone: Start: 09-25-2023 End: 09-25-2023 ambulatory Stella J Aichholz Work Phone: [facility] Work Phone: Start: 06-05-2023 End: 06-06-2023 ambulatory MARQUISE Adamson [facility] Start: 03-26-2023 End: 03-26-2023 ambulatory Stella J Aichholz Work Phone: [facility] Work Phone: Start: 03-26-2023 End: 03-26-2023 Patient encounter procedure Stella Aichholz Work Phone: [facility] [place] Work Phone: Start: 09-06-2022 ambulatory Faye Umana ty:[facility] Start: 09-02-2022 End: 09-03-2022 ambulatory ADMINISTRATIVE RECEPTIONIST STELLA AICHHOLZ Facility:[facility] Start: 08-27-2022 End: 08-27-2022 Lab Drop off Larissa OROZCO [facility] Start: 08-27-2022 End: 08-28-2022 ambulatory Dias SALAM Facility:[facility] Start: 08-12-2022 End: 08-13-2022 ambulatory ADMINISTRATIVE RECEPTIONIST STELLA AICHHOLZ Facility:[facility] Start: 08-02-2022 End: 08-03-2022 ambulatory Faye Roche Facility:[facility] Start: 07-15-2022 End: 07-16-2022 ambulatory ADMINISTRATIVE RECEPTIONIST STELLA AICHHOLZ Facility:[facility] Start: 07-11-2022 ambulatory Faye Roche Facility :[facility] Start: 07-04-2022 End: 07-05-[address] LIZY MEADE Facility:[facility] Start: 04-04-2022 End: 04-05-2022 ambulatory ADMINISTRATIVE RECEPTIONIST STELLA AICHHOLZ Facility:[facility] Start: 02-28-2022 End: 03-01-2022 ambulatory ADMINISTRATIVE RECEPTIONIST STELLA AICHHOLZ Facility:[facility] Start: 11-27-2021 End: 11-28-2021 ambulatory ADMINISTRATIVE RECEPTIONIST STELLA AICHHOLZ Facility:[facility] Start: 10-25-2021 End: 10-26-2021 ambulatory ADMINISTRATIVE RECEPTIONIST STELLA AICHHOLZ Facility:[facility] Start: 09-28-2021 End: 09-29-2021 ambulatory ADMINISTRATIVE RECEPTIONIST STELLA AICHHOLZ Facility:[facility] Start: 10-23-2017 End: 10-24-2017 Ambulatory DEFAULT PHYSICIAN Facility:[facility] Start: 10-13-2017 End: 10-14-2017 Ambulatory DEFAULT PHYSICIAN Facility:[facility] Procedures Date Procedure Procedure Detail Performing Clinician Start: 07-13-2024 Mammography Stella Aichh olz [employer] SUPERINTENDENT Work Phone: Start: 02-03-2024 MLR HEMOGLOBIN A1C Stella Gerson [employer] SUPERINTENDENT Work Phone: Start: 03-22-2024 Mammography Stella Aichh olz [employer] SUPERINTENDENT Work Phone: Start: 08-27-2022 Colonoscopy Stella Mark calderón [employer] SUPERINTENDENT Work Phone: Plan of Treatment Date Care Activity Detail Author Start: 08-27-2032 Screening for malign ant neoplasm of colon [facility] Start: 07-13-2025 Screening for malign ant neoplasm of breast Mammogram [facility] Start: 07-13-2025 Urine screening for protein Diabetes: Urine Protein Screening [facility] Start: 06-24-2025 Glaucoma screening Diabetes: R etinopathy Screening [facility] Start: 03-28-2025 End: 03-28-2025 Patient encounter procedure 03/28/2025 9:00 AM EST Office Visit [facility] [address] [place] [address] Jean Quick MD [address] [place] [address] [facility] Start: 01-06-2025 Medicare Annual Well ness (AWV) Medicare Annual Wellness (AWV) [facility] Start: 10-18-2024 End: 10-18-2024 Patient encounter procedure 10/18/2024 9:00 AM EDT Office Visit [facility] [address] [place] [address] Stella Nieto NP [address] [place] [id number] [facility] Start: 10-07-2024 Hemoglobin A1c measurement Diabetes: Hemoglobin A1C [facility] Start: 08-17-2024 End: 08-17-2024 [facility] Comment on above: Primary hypertension (CMS/HCC) (Primary Dx); Weight loss, unintentional Start: 08-13-2024 Urine screening for protein Diabetes: Urine Protein Screening [facility] Start: 07-22-2024 End: 07-22-2024 Patient encounter procedure [facility] Comment on above: Primary hypertension (CMS/HCC) (Primary Dx); Type 2 diabetes mellitus with other specified complication; Mixed hyperlipidemia (CMS/HCC); Weight loss, unintentional; Pain in the coccyx Start: 07-10-2024 Screening for malign ant neoplasm of breast Mammogram [facility] Start: 07-07-2024 End: 07-07-2024 Patient encounter procedure 07/07/2024 9:00 AM EDT Office Visit [facility] [address] [place] [address] Stella Nieto NP [address] [place] [address] [facility] Start: 05-05-2024 Hemoglobin A1c measurement Diabetes: Hemoglobin A1C [facility] Start: 03-29-2024 End: 03-29-2025 25-hydroxyvitamin D3 [Mass/volume] in Serum or Plasma Vitamin D 25 hydroxy Total Lab Routine Vitamin D deficiency Expected: 03/29/2024 (Approximate), Expires: 03/29/2025 [facility] Work Phone: Comment on above: Expected: 03/29/2024 (Approximate), Expires: 03/29/2025 Start: 03-29-2024 End: 03-29-2025 Parathyrin.intact [Mass/volume] in Serum or Plasma PTH, intact Lab Routine Hypercalcemia Expected: 03/29/2024 (Approximate), Expires: 03/29/2025 [facility] Comment on above: Expected: 03/29/2024 (Approximate), Expires: 03/29/2025 Start: 03-29-2024 End: 03-29-2025 Renal function panel Renal function panel Lab Routine Hypercalcemia Expected: 03/29/2024 (Approximate), Expires: 03/29/2025 [facility] Comment on above: Expected: 03/29/2024 (Approximate), Expires: 03/29/2025 Start: 03-29-2024 End: 03-29-2024 Patient encounter procedure [facility] Comment on above: Arrived Start: 02-19-2024 Influenza vaccination Influenza Vacc ine (#1) [facility] Comment on above: Postponed from 12/20 (Patient Does Not Have Time) Start: 01-07-2024 End: 01-06-2025 Hemoglobin A1c/Hemoglobin.total in Blood Hemoglobin A1c Lab Routine Type 2 diabetes mellitus without complication, without long-term current use of insulin ([facility]) Expected: 01/07/2024 (Approximate), Expires: 01/06/2025 [facility] Work Phone: Comment on above: Expected: 01/07/2024 (Approximate), Expires: 01/06/2025 Start: 01-07-2024 Medicare Annual Well ness (AWV) Medicare Annual Wellness (AWV) [facility] Start: 01-07-2024 End: 01-07-2024 Patient encounter procedure [facility] Comment on above: Arrived Start: 12-21-2023 Influenza vaccination Influenza Vacc ine (#1) [facility] Start: 11-13-2023 Hemoglobin A1c measurement Diabetes: Hemoglobin A1C [facility] Start: 07-23-2023 Hemoglobin A1c measurement Diabetes: Hemoglobin A1C [facility] Start: 1965 Glaucoma screening Diabetes: R etinopathy Screening [facility] Start: 1955 Screening for malign ant neoplasm of colon [facility] Immunizations Immunization Date Immunization Notes Care Provider [facility] 01-14-2023 Influenza, Seasonal, Quadrivalent, Adjuvanted Stella Nieto [employer]OWER SUPERINTENDENT Work Phone: [facility] 01-14-2023 SARS-COV-2 (COVID-19 ) vaccine, mRNA, spike protein, LNP, PF, digna-sucrose, 30 mcg/0.3 mL Stella Nieto [employer]OWER SUPERINTENDENT Work Phone: [facility] 01-14-2023 influenza virus vaccine, unspecified formulation Stella Nieto [employer]OWER SUPERINTENDENT Work Phone: [facility] 04-23-[address] 12 Years And Older Stella Nieto STEAM AND POWER SUPERINTENDENT Work Phone: [facility] 04-23-2022 SARS-CoV-2 (COVID-19 ) [id number] [facility] 07-30-2021 Pfizer Myles Cap SARS-CoV-2 Vaccination Stella Gerson [employer]OWER SUPERINTENDENT Work Phone: [facility] 07-30-2021 SARS-CoV-2 mRNA (nbjyerbqomy-uzzj-ummkd se) vaccine Dias SALAM [facility] 07-30-2021 SARS-CoV-2, Unspecified Stella Gerson [employer]OWER SUPERINTENDENT Work Phone: [facility] 02-02-2021 influenza virus vaccine, unspecified formulation Dias SALAM [facility] 02-02-2021 Influenza, High-dose Seasonal, Quadrivalent, Preservative Free Stella Jessez [employer]OWER SUPERINTENDENT Work Phone: [facility] 02-02-2021 pneumococcal conjuga te vaccine, 13 valent Dias SALAM [facility] 01-15-2021 SARS-CoV-2 (COVID-19 ) mRNA BNT-162b2 vax Dias SALAM [facility] 07-11-2020 SARS-CoV-2 (COVID-19 ) mRNA BNT-162b2 vax Dias SALAM [facility] 06-19-2020 SARS-CoV-2 (COVID-19 ) mRNA BNT-162b2 vax Dias SALAM [facility] 01-22-2020 influenza virus vaccine, unspecified formulation Dias SALAM [facility] 01-22-2020 Influenza, High-dose Seasonal, Quadrivalent, Preservative Free Stella Vanessaholz [employer]OWER SUPERINTENDENT Work Phone: [facility] 04-26-2019 influenza virus vaccine, unspecified formulation Dias SALAM [facility] 04-26-2019 Seasonal, quadrivale nt, recombinant, injectable influenza vaccine, preservative free Stella Aichholz [employer]OWER SUPERINTENDENT Work Phone: [facility] 02-06-2018 influenza virus vaccine, unspecified formulation Dias SALAM [facility] 02-06-2018 influenza, injectabl e, quadrivalent, preservative free Stella Aichholz [employer]OWER SUPERINTENDENT Work Phone: [facility] 01-30-2017 influenza virus vaccine, unspecified formulation Dias SALAM [facility] 01-30-2017 influenza, seasonal, injectable, preservative free Stella Aichholz [employer]OWER SUPERINTENDENT Work Phone: [facility] 01-30-2016 zoster vaccine, live Dias S ALAM [facility] 01-15-2016 influenza virus vaccine, unspecified formulation Dias SALAM [facility] 01-15-2016 influenza, seasonal, injectable, preservative free Stlela Aichholz [employer] POWER SUPERINTENDENT Work Phone: [facility] 04-22-2012 influenza virus vaccine, whole virus Stella Aichholz [employer] POWER SUPERINTENDENT Work Phone: [facility] 04-22-2012 influenza, injectabl e, quadrivalent, contains preservative Stella Aichholz [employer] POWER SUPERINTENDENT Work Phone: [facility] 04-22-2012 influenza, whole Dias SALAM [facility] 02-06-2009 influenza virus vaccine, whole virus Stella Aichholz [employer] POWER SUPERINTENDENT Work Phone: [facility] 02-06-2009 influenza, injectabl e, quadrivalent, contains preservative Stella Aichholz STE[employer] POWER SUPERINTENDENT Work Phone: [facility] 02-06-2009 influenza, whole Dias SALAM [facility] Payers Date Payer Category Payer Medicare (Managed Care) [employer] [id number] 2024 Medicare [id number] 2023 Self-pay [id number] 2019 Medicare [id number] 1959 Medicaid [id number] 1959 Medicare [id number] 1954 Unknown [id number] 2.16.840.1.550035.3.579.2. 593 1954 Unknown [id number] 2.16.840.1.734051.3.579.2. 593 1954 Unknown [id number] 2.16.840.1.214577.3.579.2. 593 1954 Unknown [id number] 2.16.840.1.665287.3.579.2. 593 1954 Unknown [id number] 2.16.840.1.139776.3.579.2. 593 1954 Unknown [id number] 2.16.840.1.516656.3.579.2. 593 1954 Unknown [id number] 2.16.840.1.469932.3.579.2. 593 1954 Unknown [id number] 2.16.840.1.194938.3.579.2. 593 1954 Unknown [id number] 2.16.840.1.887108.3.579.2. 593 1954 Unknown [id number] 2.16.840.1.797410.3.579.2. 727 1954 Unknown [id number] 2.16.840.1.266644.3.579.2. 727 1954 Unknown [id number] 2.16.840.1.348047.3.579.2. 727 1954 Unknown [id number] 2.16.840.1.405373.3.579.2. 727 1954 Unknown [id number] 2.16.840.1.060263.3.579.2. 727 1954 Unknown [id number] 2.16.840.1.477934.3.579.2. 1286 1954 Unknown [id number] 2.16.840.1.587763.3.579.2. 1259 1954 Unknown [id number] 2.16.840.1.355554.3.579.2. 1259 1954 Unknown [id number] 2.16.840.1.709337.3.579.2. 1259 1954 Unknown [id number] 2.16.840.1.528649.3.579.2. 1259 1954 Unknown [id number] 2.16.840.1.723737.3.579.2. 1259 1954 Unknown [id number] 2.16.840.1.532943.3.579.2. 1259 Unknown Unknown [id number] 2.16.840.1.819920.3.579.2. 531 Unknown [id number] 2.16.840.1.131722.3.579.2. 531 Social History Date Type Detail Facility Start: 08-02-2022 End: 11-25-2022 Tobacco smoking status Never smoked tobacco (finding) [facility] Tobacco smoking status [facility] Start: 03-26-2023 End: 08-10-2024 Sex Assigned At Female [facility] Start: 1955 Sex Assigned At Female [facility] Start: 11-25-2022 Tobacco use and exposure Smokeless tobacco non-user [facility] Start: 01-07-2024 End: 08-17-2024 Alcoholic beverage intake Ex-drinker (finding) [facility] Start: 03-26-2023 End: 08-10-2024 History of Social function [facility] Within the last year , have you been afraid of your partner or ex-partner? No [facility] Are you now , , , , never or living with a partner? [facility] How often to you hav e a drink containing alcohol? Monthly or less [facility] How many standard dr inks containing alcohol do you have on a [...] 11-12-2022 Sexual orientation Heterosexual (finding) [facility] Do you feel stress - tense, restless, nervous, or anxious, or unable to sleep at night because your mind is troubled all the time - these days [OSQ] To some extent [facility] How often do you nee d to have someone help you when you read instructions, pamphlets, or other written material from your doctor or pharmacy [SILS] Rarely [facility] Do you belong to any clubs or organizations such as evangelical groups, unions, fraternal or athletic groups, or school groups? Yes [facility] Do you feel stress - tense, restless, nervous, or anxious, or unable to sleep at night because your mind is troubled all the time - these days [OSQ] Only a little [facility] Medical Equipment Procedure Code Equipment Code Equipment Origin al Text Equipment Identifier Dates Once daily [id number] Start: 06-26-2023 Clinical Notes 01-07-2024 to 08-17-2024 Stella Nieto NP - 08/17/2024 9:29 AM RICHARD ORDONEZ - 08/17/2024 9:00 AM Rio Nieto NP - 08/17/2024 9:00 AM Rio Nieto NP - 08/17/2024 6:19 AM EDTPatient Instructions Note Date & Type Note Facility 08-17-2024 History of Present illness Narrative Associated Problem(s): Anxiety in acute stress reaction (CMS/HCC) Needs meds for dental procedure OARRS reviewed BS has been around 100 BP 112-140/71-89 She did have a couple that were elevated at 158/80 another being 138/98 Pt would like to discuss how much she should be taking of the vit d weekly Images from the original note were not included. Emily Adorno is a 69 y.o. female presents with chief complaint of No chief complaint on file. HPI: Here for recheck of blood pressure: last appt we stopped her lisinopril, but started on b german d/t sl elevated HR She is here today for recheck: Home reads are reviewed and mostily 120/80's w a few outliers, HR 80's Does have some intermittent harder stools with ozempic, but no abd pain, no NV Also is going to have a dental procedure next month and is asking for sedative for this No further tailbone pain SUBJECTIVE: MEDICATIONS: Current Outpatient Medications Medication Instructions alendronate (FOSAMAX) 35 mg, Oral, Every 7 days aspirin 81 mg, Daily atorvastatin (LIPITOR) 80 mg, Oral, Every evening cetirizine (ZYRTEC) 10 mg, Oral, Daily DULoxetine (CYMBALTA) 30 mg, Oral, Daily fluticasone (Flonase) 50 MCG/ACT nasal spray 2 sprays, Each Nostril, Daily, Shake gently. Before first use, prime pump. After use, clean tip and replace cap. glucose blood (True Metrix Blood Glucose Test) test strip Once daily ibuprofen 800 mg, 3 times daily levothyroxine (SYNTHROID, LEVOXYL) 88 mcg, Oral, Daily before breakfast metFORMIN XR (GLUCOPHAGE-XR) 750 mg, Oral, 2 times daily before meals metoprolol succinate XL (TOPROL-XL) 12.5 mg, Oral, Daily, Do not crush or chew. omeprazole (PRILOSEC) 20 mg, Oral, Daily before [...] left, subsequent encounter Type 2 diabetes mellitus Vitamin D deficiency White matter abnormality on MRI of brain Past Surgical History: Procedure Laterality Date ADENOIDECTOMY SECTION, LOW TRANSVERSE x3- // OTHER SURGICAL HISTORY 1981 uterine surgery TONSILLECTOMY [...] in her mother. OBJECTIVE: Visit Vitals BP 112/72 (BP Location: Left arm, Patient Position: Sitting, BP Cuff Size: Adult long) Pulse 81 Temp 98.1 F (Temporal) Resp 18 Wt 124 lb 12.8 oz SpO2 99% BMI 29.01 kg/m Smoking Status Never BSA 1.48 m Physical Exam Vitals and nursing note reviewed. Constitutional: General: She is not in acute distress. Appearance: Normal appearance. HENT: Head: Normocephalic and atraumatic. Right Ear: External ear normal. Left Ear: External ear normal. Nose: Nose normal. Mouth/Throat: Mouth: Mucous membranes are moist. Eyes: Extraocular Movements: Extraocular movements intact. Conjunctiva/sclera: Conjunctivae normal. Cardiovascular: Rate and Rhythm: Normal rate and regular rhythm. Pulses: Normal pulses. Heart sounds: Normal heart sounds. No murmur heard. Pulmonary: Effort: Pulmonary effort is normal. Breath sounds: Normal breath sounds. No wheezing or rhonchi. Abdominal: General: Bowel sounds are normal. There is no distension. Palpations: Abdomen is soft. There is no mass. Tenderness: There is no abdominal tenderness. Musculoskeletal: General: Normal range of motion. Cervical back: Normal range of motion and neck supple. Right lower leg: No edema. Left lower leg: No edema. Skin: General: Skin is warm and dry. [...] file. Problem List Items Addressed This Visit Hypertension (CMS/HCC) - Primary Please check blood pressure daily and record DASH diet Limit caffeine Take medication as directed Contact office if chest pain, pressure, dizziness, shortness of breath, swelling legs Recommend slow position changes Current meds: metoprolol 12.5mg daily Check BP 2-3 times per week Dental disease Relevant Medications LORazepam (Ativan) 0.5 MG tablet Environmental allergies Relevant Medications fluticasone (Flonase) 50 MCG/ACT nasal spray Anxiety in acute stress reaction (CMS/HCC) Needs meds for dental procedure OARRS reviewed Relevant Medications LORazepam (Ativan) 0.5 MG tablet Associated Problem(s): Weight loss, unintentional Will monitor this, pt has been on GLP 1 for some time, she does have A1c control finally, however I am not sure if the weight loss in the last few months 16 pounds is secondary to that, or not Thyroid labs ok Associated Problem(s): Hypertension (CMS/HCC) Please check blood pressure daily and record DASH diet Limit caffeine Take medication as directed Contact office if chest pain, pressure, dizziness, shortness of breath, swelling legs Recommend slow position changes Current meds: metoprolol 12.5mg daily Check BP 2-3 times per week documented in this encounter [facility] 08-17-2024 Instructions Stella Nieto NP - 08/17/2024 9:00 AM EDT Metamucil daily documented in this encounter [facility] 07-22-2024 History of Present illness Narrative 119/77 112 Images from the original note were not included. Emily Adorno is a 69 y.o. female presents with chief complaint of No chief complaint on file. HPI: Here for a recheck: last appt we lowered her blood pressure medication dose and she is here for recheck. Not dizzy any more, home reads: 100's/60's, some 120/70's No acute side effects from blood pressure meds to suggest hypotension Her weight continues to trend down: from start of GLP 1 til today 100 pounds lost, however she has been on therapy over a 4 year plus time 17 pounds in last 4 months, Tail bone pain is about 75% better still some pain, does have some muscle spasms between shoulder blades. SUBJECTIVE: MEDICATIONS: Current Outpatient Medications Medication Instructions alendronate (FOSAMAX) 35 mg, Oral, Every 7 days aspirin 81 mg, Daily atorvastatin (LIPITOR) 80 mg, Oral, Every evening cetirizine (ZYRTEC) 10 mg, Oral, Daily DULoxetine (CYMBALTA) 30 mg, Oral, Daily fluticasone (Flonase) 50 MCG/ACT nasal spray 2 sprays, Each Nostril, Daily, Shake gently. Before first use, prime pump. After use, clean tip and replace cap. glucose blood (True Metrix Blood Glucose Test) test strip Once daily ibuprofen 800 mg, 3 times daily levothyroxine (SYNTHROID, LEVOXYL) 88 mcg, Oral, Daily before breakfast lisinopril 10 mg, Oral, Daily, Take 10 mg by mouth Daily metFORMIN XR (GLUCOPHAGE-XR) 750 mg, Oral, [...] for difficulty urinating, dysuria and frequency. Musculoskeletal: Positive for arthralgias. Negative for back pain, joint swelling and myalgias. Skin: [...] left, subsequent encounter Type 2 diabetes mellitus Vitamin D deficiency White matter abnormality on [...] in her mother. OBJECTIVE: Visit Vitals BP 118/76 (BP Location: Left arm, Patient Position: Sitting, BP Cuff Size: Adult long) Pulse (!) 112 Temp 98.7 F (Temporal) Resp 18 Ht 4' 7 Wt 123 lb 6.4 oz SpO2 98% BMI 28.68 kg/m Smoking Status Never BSA 1.47 m Physical Exam Vitals and nursing note reviewed. Constitutional: General: She is not in acute distress. Appearance: Normal appearance. HENT: Head: Normocephalic and atraumatic. Right Ear: External ear normal. Left Ear: External ear normal. Nose: Nose normal. Mouth/Throat: Mouth: Mucous membranes are moist. Eyes: Extraocular Movements: Extraocular movements intact. Conjunctiva/sclera: Conjunctivae normal. Cardiovascular: Rate and Rhythm: Normal rate and regular rhythm. Pulses: Normal pulses. Heart sounds: Normal heart sounds. Pulmonary: Effort: Pulmonary effort is normal. Breath sounds: Normal breath sounds. No wheezing or rhonchi. Abdominal: General: Bowel sounds are normal. There is no distension. Palpations: Abdomen is soft. There is no mass. Tenderness: There is no abdominal tenderness. Musculoskeletal: Cervical back: Normal range of motion and neck supple. Right lower leg: No edema. Left lower leg: No edema. Comments: Tenderness thoracic Lymphadenopathy: Cervical: No cervical adenopathy. Skin: General: [...] file. Problem List Items Addressed This Visit Hypertension (CMS/HCC) - Primary Please check blood pressure daily and record DASH diet Limit caffeine Take medication as directed Contact office if chest pain, pressure, dizziness, shortness of breath, swelling legs Recommend slow position changes Current meds: lisinopril (at last appt we lowered dose to 1/2 pill daily), reviewed readings, however persisent HR elevation Stop lisinopril Trial toprol XL 25mg 1/2 tablet daily Fu in 4 weeks for recheck Relevant Medications metoprolol succinate XL (Toprol-XL) 25 MG 24 hr tablet Hyperlipidemia (CMS/HCC) Pain in the coccyx Xray no fracture Weight loss, unintentional Will monitor this, pt has been on GLP 1 for some time, she does have A1c control finally, however I am not sure if the weight loss in the last few months 16 pounds is secondary to that, or not Thyroid labs ok Type 2 diabetes mellitus with other specified complication HLD Associated Problem(s): Type 2 diabetes mellitus with other specified complication HLD Associated Problem(s): Pain in the coccyx Xray no fracture Associated Problem(s): Weight loss, unintentional Will monitor this, pt has been on GLP 1 for some time, she does have A1c control finally, however I am not sure if the weight loss in the last few months 16 pounds is secondary to that, or not Thyroid labs ok Associated Problem(s): Hypertension (CMS/HCC) Please check blood pressure daily and record DASH diet Limit caffeine Take medication as directed Contact office if chest pain, pressure, dizziness, shortness of breath, swelling legs Recommend slow position changes Current meds: lisinopril (at last appt we lowered dose to 1/2 pill daily), reviewed readings, however persisent HR elevation Stop lisinopril Trial toprol XL 25mg 1/2 tablet daily Fu in 4 weeks for recheck documented in this encounter [facility] 07-22-2024 Instructions Stella Nieto NP - 07/22/2024 1:40 PM EDT Bone density: Call centralized scheduling for schedule bone density test: [phone] BP/HR: stop lisinopril , we will start Metoprolol succinate XL: 12.5mg (1/2 of a 25mg tablet) ONCE a day. Check blood pressure documented in this encounter [facility] 03-29-2024 History of Present illness Narrative Emily [...] HPI: 07/06 Follow up patient sent from [facility] in [facility] for hypercalcemia. The last time seen by [...] hours prior to procedure. Must have a services delivery driver for this metFORMIN XR (GLUCOPHAGE-XR) 750 [...] year (around 03/29/2025). documented in this encounter [facility] 01-07-2024 History of Present illness Narrative Associated [...] being taken. She does not see a equity research associate.Eye exam is current. SUBJECTIVE: MEDICATIONS: Current Outpatient [...] hours prior to procedure. Must have a services delivery driver for this magnesium oxide (MAG-OX) 400 [...] Laterality Date ADENOIDECTOMY SECTION, LOW TRANSVERSE x3- 82// OTHER SURGICAL HISTORY 1981 uterine surgery TONSILLECTOMY [...] yearly and prn documented in this encounter [facility] Healthcare Evaluation + Plan note No data available for this section [facility] Evaluation note No assessment inform ation available [facility] Work Phone: Evaluation note Diagnosis Anxiety in acute stress reaction (CMS/HCC)- Primary Dental disease Unspecified disorder of the teeth and supporting structures documented in this encounter [facility] Diagnosis Type 2 diabetes mellitus without complication, without long-term current use of insulin ([facility])- Primary Obesity (BMI 30-39.9) Hyperparathyroidism ([facility]/HCC) Hyperparathyroidism, unspecified Primary hypertension ([facility]/HCC) Unspecified essential hypertension Gastroesophageal reflux disease without esophagitis Esophageal reflux Depression with anxiety Dysthymic disorder Primary hypertension ([facility]/HCC)- Primary Unspecified essential hypertension Vitamin D deficiency Type 2 diabetes mellitus without complication, without long-term current use of insulin ([facility]) Hypothyroidism, unspecified type ([facility]/HCC) Mixed hyperlipidemia ([facility]/HCC) Mixed hyperlipidemia Encounter for screening mammogram for malignant neoplasm of breast Hyperparathyroidism ([facility]) Hyperparathyroidism, unspecified Hyperparathyroidism, unspecified (E21.3) Hyperparathyroidism, unspecified Lateral epicondylitis of right elbow- Primary Obesity (BMI 30-39.9) Dental disease Unspecified disorder of the teeth and supporting structures Anxiety in acute stress reaction ([facility]) Type 2 diabetes mellitus without complications ([facility])- Primary Mixed hyperlipidemia ([facility]) Mixed hyperlipidemia Other specified disorders of bone density and structure, unspecified site Environmental allergies Other allergy, other than to medicinal agents Other specified anxiety disorders Mild episode of recurrent major depressive disorder (HCC) ([facility]) Hypothyroidism, unspecified type ([facility]) Essential (primary) hypertension ([facility]) Unspecified essential hypertension Gastroesophageal reflux disease without esophagitis Esophageal reflux Hypomagnesemia Disorders of magnesium metabolism Primary hypertension ([facility]) Unspecified essential hypertension Type 2 diabetes mellitus without complication, without long-term current use of insulin ([facility]) Dental disease Unspecified disorder of the teeth and supporting structures Anxiety in acute stress reaction ([facility]) Encounter for subsequent annual wellness visit (AWV) in Medicare patient- Primary Type 2 diabetes mellitus without complication, without long-term current use of insulin ([facility]) Hypothyroidism, unspecified type ([facility]) Mild episode of recurrent major depressive disorder (HCC) ([facility]) Primary hypertension ([facility]) Unspecified essential hypertension Obesity (BMI 30-39.9) Type 2 diabetes mellitus without complications ([facility]) Mixed hyperlipidemia ([facility]) Mixed hyperlipidemia documented in this encounter [facility]* Diagnosis Type 2 diabetes mellitus without complication, without long-term current use of insulin ([facility])- Primary Obesity (BMI 30-39.9) Hyperparathyroidism ([facility]/HCC) Hyperparathyroidism, unspecified Primary hypertension ([facility]/HCC) Unspecified essential hypertension Gastroesophageal reflux disease without esophagitis Esophageal reflux Depression with anxiety Dysthymic disorder Primary hypertension ([facility]/HCC)- Primary Unspecified essential hypertension Vitamin D deficiency Type 2 diabetes mellitus without complication, without long-term current use of insulin ([facility]) Hypothyroidism, unspecified type ([facility]/HCC) Mixed hyperlipidemia ([facility]) Mixed hyperlipidemia Encounter for screening mammogram for malignant neoplasm of breast Hyperparathyroidism ([facility]) Hyperparathyroidism, unspecified Hyperparathyroidism, unspecified (E21.3) Hyperparathyroidism, unspecified Lateral epicondylitis of right elbow- Primary Obesity (BMI 30-39.9) Dental disease Unspecified disorder of the teeth and supporting structures Anxiety in acute stress reaction ([facility]) Type 2 diabetes mellitus without complications ([facility])- Primary Mixed hyperlipidemia ([facility]) Mixed hyperlipidemia Other specified disorders of bone density and structure, unspecified site Environmental allergies Other allergy, other than to medicinal agents Other specified anxiety disorders Mild episode of recurrent major depressive disorder (HCC) ([facility]) Hypothyroidism, unspecified type ([facility]) Essential (primary) hypertension ([facility]) Unspecified essential hypertension Gastroesophageal reflux disease without esophagitis Esophageal reflux Hypomagnesemia Disorders of magnesium metabolism Primary hypertension ([facility]) Unspecified essential hypertension Type 2 diabetes mellitus without complication, without long-term current use of insulin ([facility]) Dental disease Unspecified disorder of the teeth and supporting structures Anxiety in acute stress reaction ([facility]) Encounter for subsequent annual wellness visit (AWV) in Medicare patient- Primary Type 2 diabetes mellitus without complication, without long-term current use of insulin ([facility]) Hypothyroidism, unspecified type ([facility]) Mild episode of recurrent major depressive disorder (HCC) ([facility]) Primary hypertension ([facility]) Unspecified essential hypertension Obesity (BMI 30-39.9) Hypothyroidism, unspecified type ([facility]/HCC) documented in this encounter [facility]* Diagnosis Type 2 diabetes mellitus without complication, without long-term current use of insulin ([facility])- Primary Obesity (BMI 30-39.9) Hyperparathyroidism (CMS/HCC) Hyperparathyroidism, unspecified Primary hypertension ([facility]/HCC) Unspecified essential hypertension Gastroesophageal reflux disease without esophagitis Esophageal reflux Depression with anxiety Dysthymic disorder Primary hypertension (CMS/HCC)- Primary Unspecified essential hypertension Vitamin D deficiency Type 2 diabetes mellitus without complication, without long-term current use of insulin (CMS/HCC) Hypothyroidism, unspecified type (CMS/HCC) Mixed hyperlipidemia (CMS/HCC) Mixed hyperlipidemia Encounter for screening mammogram for malignant neoplasm of breast Hyperparathyroidism ([facility]) Hyperparathyroidism, unspecified Hyperparathyroidism, unspecified (E21.3) Hyperparathyroidism, unspecified [...] Hypothyroidism, unspecified type (CMS/HCC) Essential (primary) hypertension ([facility]) Unspecified essential hypertension Gastroesophageal reflux disease without esophagitis Esophageal reflux Hypomagnesemia Disorders of magnesium metabolism Primary hypertension (CMS/HCC) Unspecified essential hypertension Type 2 diabetes mellitus without complication, without long-term current use of insulin (CMS/[facility]) Dental disease Unspecified disorder of the teeth and supporting structures Anxiety in acute stress reaction ([facility]) Encounter for subsequent annual wellness visit (AWV) in Medicare patient- Primary Type 2 diabetes mellitus without complication, without long-term current use of insulin ([facility]) Hypothyroidism, unspecified type (CMS/HCC) Mild episode of recurrent major depressive disorder (HCC) (CMS/HCC) Primary hypertension ([facility]) Unspecified essential hypertension Obesity (BMI 30-39.9) Hypercalcemia- Primary Vitamin D deficiency Hypomagnesemia Disorders of magnesium metabolism Osteopenia of multiple sites documented in this encounter [facility]* Diagnosis Encounter for subsequent annual wellness visit (AWV) in Medicare patient- Primary Type 2 diabetes mellitus without complication, without long-term current use of insulin ([facility]) Hypothyroidism, unspecified type (CMS/HCC) Mild episode of recurrent major depressive disorder (HCC) (CMS/HCC) Primary hypertension ([facility]/HCC) Unspecified essential hypertension Obesity (BMI 30-39.9) documented [...] complication, without long-term current use of insulin (CMS/[facility]) Hypothyroidism, unspecified type (CMS/HCC) Mixed hyperlipidemia (CMS/[facility]) Mixed hyperlipidemia Encounter for screening mammogram for malignant neoplasm of breast Hyperparathyroidism (CMS/[facility]) Hyperparathyroidism, unspecified Hyperparathyroidism, unspecified (E21.3) Hyperparathyroidism, unspecified Lateral epicondylitis of right elbow- Primary Obesity (BMI 30-39.9) Dental disease Unspecified disorder of the teeth and supporting structures Anxiety in acute stress reaction (CMS/[facility]) Type 2 diabetes mellitus without complications (CMS/[facility])- Primary Mixed hyperlipidemia (CMS/[facility]) Mixed hyperlipidemia Other specified disorders of bone [...] complication, without long-term current use of insulin (CMS/[facility]) Dental disease Unspecified disorder of the teeth and supporting structures Anxiety in acute stress reaction ([facility]) Encounter for subsequent annual wellness visit (AWV) in Medicare patient- Primary Type 2 diabetes mellitus without complication, without long-term current use of insulin (CMS/[facility]) Hypothyroidism, unspecified type (CMS/[facility]) Mild episode of recurrent major depressive disorder (HCC) (CMS/HCC) Primary hypertension (CMS/HCC) Unspecified essential hypertension Obesity (BMI 30-39.9) Type 2 diabetes mellitus without complications (CMS/HCC) documented in this encounter [facility] HealthcareEvaluation note* Diagnosis Type 2 diabetes mellitus without complication, without long-term current use of insulin (CMS/[facility])- Primary Obesity (BMI 30-39.9) Hyperparathyroidism (CMS/HCC) Hyperparathyroidism, unspecified Primary hypertension (CMS/HCC) Unspecified essential hypertension Gastroesophageal reflux disease without esophagitis Esophageal reflux Depression with anxiety Dysthymic disorder Primary hypertension ([facility]/HCC)- Primary Unspecified essential hypertension Vitamin D deficiency Type 2 diabetes mellitus without complication, without long-term current use of insulin ([facility]) Hypothyroidism, unspecified type ([facility]/HCC) Mixed hyperlipidemia ([facility]) Mixed hyperlipidemia Encounter for screening mammogram for malignant neoplasm of breast Hyperparathyroidism ([facility]) Hyperparathyroidism, unspecified Hyperparathyroidism, unspecified (E21.3) Hyperparathyroidism, unspecified Lateral epicondylitis of right elbow- Primary Obesity (BMI 30-39.9) Dental disease Unspecified disorder of the teeth and supporting structures Anxiety in acute stress reaction ([facility]) Type 2 diabetes mellitus without complications ([facility])- Primary Mixed hyperlipidemia ([facility]) Mixed hyperlipidemia Other specified disorders of bone density and structure, unspecified site Environmental allergies Other allergy, other than to medicinal agents Other specified anxiety disorders Mild episode of recurrent major depressive disorder (HCC) ([facility]) Hypothyroidism, unspecified type ([facility]) Essential (primary) hypertension ([facility]) Unspecified essential hypertension Gastroesophageal reflux disease without esophagitis Esophageal reflux Hypomagnesemia Disorders of magnesium metabolism Primary hypertension ([facility]) Unspecified essential hypertension Type 2 diabetes mellitus without complication, without long-term current use of insulin ([facility]) Dental disease Unspecified disorder of the teeth and supporting structures Anxiety in acute stress reaction ([facility]) Encounter for subsequent annual wellness visit (AWV) in Medicare patient- Primary Type 2 diabetes mellitus without complication, without long-term current use of insulin ([facility]) Hypothyroidism, unspecified type ([facility]) Mild episode of recurrent major depressive disorder (HCC) ([facility]) Primary hypertension ([facility]) Unspecified essential hypertension Obesity (BMI 30-39.9) Type 2 diabetes mellitus without complications ([facility]) Environmental allergies Other allergy, other than to medicinal agents documented in this encounter [facility]* Diagnosis Type 2 diabetes mellitus without complication, without long-term current use of insulin ([facility])- Primary Obesity (BMI 30-39.9) Hyperparathyroidism ([facility]) Hyperparathyroidism, unspecified Primary hypertension ([facility]) Unspecified essential hypertension Gastroesophageal reflux disease without esophagitis Esophageal reflux Depression with anxiety Dysthymic disorder Primary hypertension ([facility]/HCC)- Primary Unspecified essential hypertension Vitamin D deficiency Type 2 diabetes mellitus without complication, without long-term current use of insulin (CMS/HCC) Hypothyroidism, unspecified type (CMS/HCC) Mixed hyperlipidemia (CMS/HCC) Mixed hyperlipidemia Encounter for screening mammogram for malignant neoplasm of breast Hyperparathyroidism ([facility]) Hyperparathyroidism, unspecified Hyperparathyroidism, unspecified (E21.3) Hyperparathyroidism, unspecified [...] complication, without long-term current use of insulin (CMS/[facility]) Dental disease Unspecified disorder of the teeth and supporting structures Anxiety in acute stress reaction ([facility]) Encounter for subsequent annual wellness visit (AWV) in Medicare patient- Primary Type 2 diabetes mellitus without complication, without long-term current use of insulin (CMS/[facility]) Hypothyroidism, unspecified type (CMS/HCC) Mild episode of recurrent major depressive disorder (HCC) (CMS/HCC) Primary hypertension (CMS/[facility]) Unspecified essential hypertension Obesity (BMI 30-39.9) Type 2 diabetes mellitus without complications (CMS/HCC) Other specified anxiety disorders Mild episode of recurrent major depressive disorder (HCC) (CMS/HCC) documented in this encounter [facility] HealthcareEvaluation note* Diagnosis Type 2 diabetes [...] (CMS/HCC) Hypothyroidism, unspecified type (CMS/HCC) Mixed hyperlipidemia ([facility]) Mixed hyperlipidemia Encounter for screening mammogram for malignant neoplasm of breast Hyperparathyroidism ([facility]) Hyperparathyroidism, unspecified Hyperparathyroidism, unspecified (E21.3) Hyperparathyroidism, unspecified Lateral epicondylitis of right elbow- Primary Obesity (BMI 30-39.9) Dental disease Unspecified disorder of the teeth and supporting structures Anxiety in acute stress reaction ([facility]) Type 2 diabetes mellitus without complications ([facility])- Primary Mixed hyperlipidemia ([facility] Mixed hyperlipidemia Other specified disorders of bone density and structure, unspecified site Environmental allergies Other allergy, other than to medicinal agents Other specified anxiety disorders Mild episode of recurrent major depressive disorder (HCC) ([facility]) Hypothyroidism, unspecified type ([facility]) Essential (primary) hypertension ([facility]) Unspecified essential hypertension Gastroesophageal reflux disease without esophagitis Esophageal reflux Hypomagnesemia Disorders of magnesium metabolism Primary hypertension ([facility]) Unspecified essential hypertension Type 2 diabetes mellitus without complication, without long-term current use of insulin ([facility]) Dental disease Unspecified disorder of the teeth and supporting structures Anxiety in acute stress reaction ([facility]) Encounter for subsequent annual wellness visit (AWV) in Medicare patient- Primary Type 2 diabetes mellitus without complication, without long-term current use of insulin ([facility]) Hypothyroidism, unspecified type ([facility]) Mild episode of recurrent major depressive disorder (HCC) ([facility]) Primary hypertension ([facility]) Unspecified essential hypertension Obesity (BMI 30-39.9) Environmental allergies- Primary Other allergy, other than to medicinal agents documented in this encounter [facility]* Diagnosis Type 2 diabetes mellitus without complication, without long-term current use of insulin- Primary Obesity (BMI 30-39.9) Hyperparathyroidism (CMS/HCC) Hyperparathyroidism, unspecified Primary hypertension ([facility]) Unspecified essential hypertension Gastroesophageal reflux disease without esophagitis Esophageal reflux Depression with anxiety Dysthymic disorder Primary hypertension ([facility])- Primary Unspecified essential hypertension Vitamin D deficiency Type 2 diabetes mellitus without complication, without long-term current use of insulin Hypothyroidism, unspecified type ([facility]/HCC) Mixed hyperlipidemia ([facility]) Mixed hyperlipidemia Encounter for screening mammogram for malignant neoplasm of breast Hyperparathyroidism ([facility]) Hyperparathyroidism, unspecified Hyperparathyroidism, unspecified (E21.3) Hyperparathyroidism, unspecified Lateral epicondylitis of right elbow- Primary Obesity (BMI 30-39.9) Dental disease Unspecified disorder of the teeth and supporting structures Anxiety in acute stress reaction (CMS/HCC) Type 2 diabetes mellitus without complications- Primary Mixed hyperlipidemia (CMS/HCC) Mixed hyperlipidemia Other [...] complication, without long-term current use of insulin Dental disease Unspecified disorder of the teeth and supporting structures Anxiety in acute stress reaction ([facility]) Encounter for subsequent annual wellness visit (AWV) in Medicare patient- Primary Type 2 diabetes mellitus without complication, without long-term current use of insulin Hypothyroidism, unspecified type ([facility]) Mild episode of recurrent major depressive disorder (HCC) ([facility]/HCC) Primary hypertension ([facility]) Unspecified essential hypertension Obesity (BMI 30-39.9) Type 2 diabetes mellitus without complication, without long-term current use of insulin- Primary Primary hypertension (CMS/HCC) Unspecified essential hypertension Gastroesophageal reflux disease without esophagitis Esophageal reflux Age-related osteoporosis without current pathological fracture ([facility]) Hyperparathyroidism (CMS/HCC) Hyperparathyroidism, unspecified Hypothyroidism, unspecified type (CMS/HCC) Obesity (BMI 30-39.9) Vitamin D deficiency Depression with anxiety Dysthymic disorder Mixed hyperlipidemia ([facility]) Mixed hyperlipidemia Encounter for screening mammogram for malignant neoplasm of breast Other specified disorders of bone density and structure, unspecified site Environmental allergies Other allergy, other than to medicinal agents Other specified anxiety disorders Mild episode of recurrent major depressive disorder (HCC) (CMS/HCC) Type 2 diabetes mellitus without complications Pain in the coccyx Other disorder of coccyx Weight loss, unintentional Loss of weight Other specified disorders of bone density and structure, unspecified site documented in this encounter [facility]* Diagnosis Type 2 diabetes mellitus without complication, without long-term current use of insulin- Primary Obesity (BMI 30-39.9) Hyperparathyroidism (CMS/HCC) Hyperparathyroidism, unspecified Primary hypertension ([facility]) Unspecified essential hypertension Gastroesophageal reflux disease without esophagitis Esophageal reflux Depression with anxiety Dysthymic disorder Primary hypertension (CMS/HCC)- Primary Unspecified essential hypertension Vitamin D deficiency Type 2 diabetes mellitus without complication, without long-term current use of insulin Hypothyroidism, unspecified type (CMS/HCC) Mixed hyperlipidemia (CMS/HCC) Mixed hyperlipidemia Encounter for screening mammogram for malignant neoplasm of breast Hyperparathyroidism (CMS/[facility]) Hyperparathyroidism, unspecified Hyperparathyroidism, unspecified (E21.3) Hyperparathyroidism, unspecified Lateral epicondylitis of right elbow- Primary Obesity (BMI 30-39.9) Dental disease Unspecified disorder of the teeth and supporting structures Anxiety in acute stress reaction (CMS/HCC) Type 2 diabetes mellitus without complications- Primary Mixed hyperlipidemia (CMS/[facility]) Mixed hyperlipidemia Other specified disorders of bone density and structure, unspecified site Environmental allergies Other allergy, other than to medicinal agents Other specified anxiety disorders Mild episode of recurrent major depressive disorder (HCC) (CMS/HCC) Hypothyroidism, unspecified type (CMS/HCC) Essential (primary) hypertension ([facility]) Unspecified essential hypertension Gastroesophageal reflux disease without esophagitis Esophageal reflux Hypomagnesemia Disorders of magnesium metabolism Primary hypertension (CMS/HCC) Unspecified essential hypertension Type 2 diabetes mellitus without complication, without long-term current use of insulin Dental disease Unspecified disorder of the teeth and supporting structures Anxiety in acute stress reaction ([facility]) Encounter for subsequent annual wellness visit (AWV) in Medicare patient- Primary Type 2 diabetes mellitus without complication, without long-term current use of insulin Hypothyroidism, unspecified type (CMS/HCC) Mild episode of recurrent major depressive disorder (HCC) (CMS/HCC) Primary hypertension ([facility]) Unspecified essential hypertension Obesity (BMI 30-39.9) Type 2 diabetes mellitus without complication, without long-term current use of insulin- Primary Primary hypertension (CMS/HCC) Unspecified essential hypertension Gastroesophageal reflux disease without esophagitis Esophageal reflux Age-related osteoporosis without current pathological fracture (CMS/HCC) Hyperparathyroidism (CMS/HCC) Hyperparathyroidism, unspecified Hypothyroidism, unspecified type (CMS/HCC) Obesity (BMI 30-39.9) Vitamin D deficiency Depression with anxiety Dysthymic disorder Mixed hyperlipidemia ([facility]) Mixed hyperlipidemia Encounter for screening mammogram for malignant neoplasm of breast Other specified disorders of bone density and structure, unspecified site Environmental allergies Other allergy, other than to medicinal agents Other specified anxiety disorders Mild episode of recurrent major depressive disorder (HCC) (CMS/HCC) Type 2 diabetes mellitus without complications Pain in the coccyx Other disorder of coccyx Weight loss, unintentional Loss of weight Primary hypertension (CMS/HCC)- Primary Unspecified essential hypertension Type 2 diabetes mellitus with other specified complication Mixed hyperlipidemia (CMS/HCC) Mixed hyperlipidemia Weight loss, unintentional Loss of weight Pain in the coccyx Other disorder of coccyx documented in this encounter [facility]* Diagnosis Type 2 diabetes mellitus without complication, without long-term current use of insulin- Primary Obesity (BMI 30-39.9) Hyperparathyroidism (CMS/HCC) Hyperparathyroidism, unspecified Primary hypertension (CMS/HCC) Unspecified essential hypertension Gastroesophageal reflux disease without esophagitis Esophageal reflux Depression with anxiety Dysthymic disorder Primary hypertension (CMS/HCC)- Primary Unspecified essential hypertension Vitamin D deficiency Type 2 diabetes mellitus without complication, without long-term current use of insulin Hypothyroidism, unspecified type (CMS/HCC) Mixed hyperlipidemia (CMS/HCC) Mixed hyperlipidemia Encounter for screening mammogram for malignant neoplasm of breast Hyperparathyroidism ([facility]) Hyperparathyroidism, unspecified Hyperparathyroidism, unspecified (E21.3) Hyperparathyroidism, unspecified Lateral epicondylitis of right elbow- Primary Obesity (BMI 30-39.9) Dental disease Unspecified disorder of the teeth and supporting structures Anxiety in acute stress reaction (CMS/[facility]) Type 2 diabetes mellitus without complications- Primary Mixed hyperlipidemia (CMS/[facility]) Mixed hyperlipidemia Other specified disorders of bone density and structure, unspecified site Environmental allergies Other allergy, other than to medicinal agents Other specified anxiety disorders Mild episode of recurrent major depressive disorder (HCC) (CMS/HCC) Hypothyroidism, unspecified type (CMS/HCC) Essential (primary) hypertension ([facility]) Unspecified essential hypertension Gastroesophageal reflux disease without esophagitis Esophageal reflux Hypomagnesemia Disorders of magnesium metabolism Primary hypertension (CMS/HCC) Unspecified essential hypertension Type 2 diabetes mellitus without complication, without long-term current use of insulin Dental disease Unspecified disorder of the teeth and supporting structures Anxiety in acute stress reaction ([facility]) Encounter for subsequent annual wellness visit (AWV) in Medicare patient- Primary Type 2 diabetes mellitus without complication, without long-term current use of insulin Hypothyroidism, unspecified type (CMS/HCC) Mild episode of recurrent major depressive disorder (HCC) ([facility]) Primary hypertension (CMS/[facility]) Unspecified essential hypertension Obesity (BMI 30-39.9) Type 2 diabetes mellitus without complication, without long-term current use of insulin- Primary Primary hypertension ([facility]) Unspecified essential hypertension Gastroesophageal reflux disease without esophagitis Esophageal reflux Age-related osteoporosis without current pathological fracture ([facility]) Hyperparathyroidism ([facility]/HCC) Hyperparathyroidism, unspecified Hypothyroidism, unspecified type ([facility]) Obesity (BMI 30-39.9) Vitamin D deficiency Depression with anxiety Dysthymic disorder Mixed hyperlipidemia ([facility]) Mixed hyperlipidemia Encounter for screening mammogram for malignant neoplasm of breast Other specified disorders of bone density and structure, unspecified site Environmental allergies Other allergy, other than to medicinal agents Other specified anxiety disorders Mild episode of recurrent major depressive disorder (HCC) ([facility]) Type 2 diabetes mellitus without complications Pain in the coccyx Other disorder of coccyx Weight loss, unintentional Loss of weight Primary hypertension ([facility])- Primary Unspecified essential hypertension Type 2 diabetes mellitus with other specified complication Mixed hyperlipidemia ([facility]) Mixed hyperlipidemia Weight loss, unintentional Loss of weight Pain in the coccyx Other disorder of coccyx Primary hypertension ([facility])- Primary Unspecified essential hypertension Environmental allergies Other allergy, other than to medicinal agents Anxiety in acute stress reaction ([facility]) Dental disease Unspecified disorder of the teeth and supporting structures documented in this encounter [facility]* Diagnosis Type 2 diabetes mellitus without complication, without long-term current use of insulin- Primary Obesity (BMI 30-39.9) Hyperparathyroidism ([facility]) Hyperparathyroidism, unspecified Primary hypertension ([facility]) Unspecified essential hypertension Gastroesophageal reflux disease without esophagitis Esophageal reflux Depression with anxiety Dysthymic disorder Primary hypertension ([facility])- Primary Unspecified essential hypertension Vitamin D deficiency Type 2 diabetes mellitus without complication, without long-term current use of insulin Hypothyroidism, unspecified type ([facility]) Mixed hyperlipidemia ([facility]) Mixed hyperlipidemia Encounter for screening mammogram for malignant neoplasm of breast Hyperparathyroidism ([facility]) Hyperparathyroidism, unspecified Hyperparathyroidism, unspecified (E21.3) Hyperparathyroidism, unspecified Lateral epicondylitis of right elbow- Primary Obesity (BMI 30-39.9) Dental disease Unspecified disorder of the teeth and supporting structures Anxiety in acute stress reaction ([facility]) Type 2 diabetes mellitus without complications- Primary Mixed hyperlipidemia ([facility]) Mixed hyperlipidemia Other specified disorders of bone [...] complication, without long-term current use of insulin Dental disease Unspecified disorder of the teeth and supporting structures Anxiety in acute stress reaction ([facility]) Encounter for subsequent annual wellness visit (AWV) in Medicare patient- Primary Type 2 diabetes mellitus without complication, without long-term current use of insulin Hypothyroidism, unspecified type (CMS/HCC) Mild episode of recurrent major depressive disorder (HCC) (CMS/HCC) Primary hypertension (CMS/HCC) Unspecified essential hypertension Obesity (BMI 30-39.9) Type 2 diabetes mellitus without complication, without long-term current use of insulin- Primary Primary hypertension (CMS/HCC) Unspecified essential hypertension Gastroesophageal reflux disease without esophagitis Esophageal reflux Age-related osteoporosis without current pathological fracture ([facility]/HCC) Hyperparathyroidism ([facility]/HCC) Hyperparathyroidism, unspecified Hypothyroidism, unspecified type (CMS/HCC) Obesity (BMI 30-39.9) Vitamin D deficiency Depression with anxiety Dysthymic disorder Mixed hyperlipidemia ([facility]/HCC) Mixed hyperlipidemia Encounter for screening mammogram for malignant neoplasm of breast Other specified disorders of bone density and structure, unspecified site Environmental allergies Other allergy, other than to medicinal agents Other specified anxiety disorders Mild episode of recurrent major depressive disorder (HCC) (CMS/HCC) Type 2 diabetes mellitus without complications Pain in the coccyx Other disorder of coccyx Weight loss, unintentional Loss of weight Primary hypertension (CMS/HCC)- Primary Unspecified essential hypertension Type 2 diabetes mellitus with other specified complication Mixed hyperlipidemia ([facility]/HCC) Mixed hyperlipidemia Weight loss, unintentional Loss of weight Pain in the coccyx Other disorder of coccyx Primary hypertension (CMS/HCC)- Primary Unspecified essential hypertension Environmental allergies Other allergy, other than to medicinal agents Anxiety in acute stress reaction ([facility]) Dental disease Unspecified disorder of the teeth and supporting structures Type 2 diabetes mellitus without complications documented in this encounter [facility] Healthcare[facility]ospital Discharge instructions No data available for this section [facility] No data available for this section [facility] Summary Purpose Family History No [...] and content) DATE CREATED AUTHOR 10/24/2017 [facility] DATE CREATED AUTHOR AUTHOR'S ORGANIZ ATION 09/02/2022 [facility] DATE CREATED AUTHOR AUTHOR'S ORGANIZ ATION 09/04/2022 [facility] DATE CREATED AUTHOR AUTHOR'S ORGANIZ ATION 06/07/2023 [facility] DATE CREATED AUTHOR AUTHOR'S ORGANIZ ATION 03/30/2024 [facility] DATE CREATED AUTHOR AUTHOR'S ORGANIZ ATION 08/18/2024 [facility] Patient Care team informatio n (unrecognized section [...] September 25, 2023 End: September 25, 2023 Tattoo Technician Relationship Specialty Start Date End Date Ángel Iverson MD [address] [place] [address] PCP - General Family Medicine 07/07/23 Stella Nieto NP [address] [place] [phone] Nurse Practitioner Family Medicine 07/07/23 Tattoo Technician Relationship Specialty Start Date End Date Ángel Iverson MD [address] [place] [phone] PCP - General Family Medicine 07/07/23 Stella Nieto NP [address] [place] [phone] Nurse Practitioner Family Medicine 07/07/23 Tattoo Technician Relationship Specialty Start Date End Date Ángel Iverson MD [address] [place] [phone] PCP - General Family Medicine 07/07/23 Stella Nieto NP [address] [place] [phone] Nurse Practitioner Family Medicine 07/07/23 Tattoo Technician Relationship Specialty Start Date End Date Ángel Iverson MD [address] [place] [phone] PCP - General Family Medicine 07/07/23 Stella Nieto NP [address] [place] [phone] Nurse Practitioner Family Medicine 07/07/23 Tattoo Technician Relationship Specialty Start Date End Date Ángel Iverson MD [address] [place] [phone] PCP - General Family Medicine 07/07/23 Stella Nieto NP [address] [place] [phone] Nurse Practitioner Family Medicine 07/07/23 Tattoo Technician Relationship Specialty Start Date End Date Ángel Iverson MD [address] [place] [phone] PCP - General Family Medicine 07/07/23 Stella Nieto NP [address] [place] [phone] Nurse Practitioner Family Medicine 07/07/23 Tattoo Technician Relationship Specialty Start Date End Date Ángel Iverson MD [address] [place] [phone] PCP - General Family Medicine 07/07/23 Stella Nieto NP [address] [place] [phone] Nurse Practitioner Family Medicine 07/07/23 Tattoo Technician Relationship Specialty Start Date End Date Ángel Iverson MD [address] [place] [phone] PCP - General Family Medicine 07/07/23 Stella Nieto NP [address] [place] [address] Nurse Practitioner Family Medicine 07/07/23 Tattoo Technician Relationship Specialty Start Date End Date Ángel Iverson MD [address] [place] [phone] PCP - General Family Medicine 07/07/23 Stella Nieto NP [address] [place] [address] Nurse Practitioner Family Medicine 07/07/23 Tattoo Technician Relationship Specialty Start Date End Date Ángel Iverson MD [address] [place] [phone] PCP - General Family Medicine 07/07/23 Stella Nieto NP [address] [place] [address] Nurse Practitioner Family Medicine 07/07/23 Tattoo Technician Relationship Specialty Start Date End Date Ángel Iverson MD [address] [place] [phone] PCP - General Family Medicine 07/07/23 Stella Nieto NP [address] [place] [phone] Nurse Practitioner Family Medicine 07/07/23 Tattoo Technician Relationship Specialty Start Date End Date Ángel Iverson MD [address] [place] [phone] PCP - General Family Medicine 07/07/23 Stella Nieto NP [address] [place] [phone] Nurse Practitioner Family Medicine 07/07/23 Tattoo Technician Relationship Specialty Start Date End Date Ángel Iverson MD [address] [place] [phone] PCP - General Family Medicine 07/07/23 Stella Nieto NP [address] [place] [address] Nurse Practitioner Family Medicine 07/07/23 Tattoo Technician Relationship Specialty Start Date End Date Ángel Iverson MD [address] [place] [phone] PCP - General Family Medicine 07/07/23 Stella Nieto NP [address] [place] [phone] Nurse Practitioner Family Medicine 07/07/23 Tattoo Technician Relationship Specialty Start Date End Date Ángel Iverson MD [address] [place] [phone] PCP - General Family Medicine 07/07/23 Stella Nieto NP [address] [place] [address] Nurse Practitioner Family Medicine 07/07/23 Tattoo Technician Relationship Specialty Start Date End Date Ángel Iverson MD [address] [place] [phone] PCP - General Family Medicine 07/07/23 Stella Nieto NP [address] [place] [address] Nurse Practitioner Family Medicine 07/07/23 Tattoo Technician Relationship Specialty Start Date End Date Ángel Iverson MD [address] [place] [phone] PCP - General Family Medicine 07/07/23 Stella Nieto NP [address] [place] [phone] Nurse Practitioner Family Medicine 07/07/23 Tattoo Technician Relationship Specialty Start Date End Date Ángel Iverson MD [address] [place] [address] PCP - General Family Medicine 07/07/23 Stella Nieto NP [address] [place] [address] Nurse Practitioner Family Medicine 07/07/23 Goals [...] BE BASED ON THE PRIMARY CLINICAL RECORDS. [employer] provides no warranty or guarantee of the accuracy or completeness of information in this document.
== END 2024-09-08 08:39 | disposition home or self-care (01) ==
LOC: RAD 08:38
PROVIDERS: PCP Nurse Practitioner; Visit Provider Nurse Practitioner
DX: M81.0 Age-related osteoporosis without current pathological fracture (principal); E55.9 Vitamin D deficiency, unspecified
CPT/HCPCS: 77080

== ENCOUNTER 2024-10-20 13:42 | Outpatient (OUT) | payer MEDICARE, SELFPAY ==
--- NOTE | 2024-10-20 13:48 | XR_ITS ---
[address] [address] Patient Name: KEE MANUEL MRN: [id number] date: 1955 Sex: F Assigned Patient Location: LAB Current Patient Location: LAB Accession/Order Number: [id number] Exam Date: 10/20/2024 14:40 Report Date: 10/20/2024 14:41 At the request of: ADRI BARRAGAN NP Procedure: XR hip RT min 2V RIGHT HIP - 2 views: CLINICAL HISTORY: Right Hip Pain COMPARISON: Pelvis 01/07/2023 FINDINGS: Mild degenerative changes involving the right hip without acute bony process. XR/XR hip RT min 2V IMPRESSION: MILD DEGENERATIVE CHANGES INVOLVING THE RIGHT HIP WITHOUT ACUTE BONY PROCESS.. Impression dictated by: Humza Booker Jr., D.O. 10/20/2024 2:41 PM Dictation Location: [place] [address] Electronically authenticated by: [id number] Y Date: 10/20/2024 14:41
--- NOTE | 2024-10-20 13:48 | XR_ITS ---
[address] [address] Patient Name: KEE MANUEL MRN: [id number] date: 1955 Sex: F Assigned Patient Location: LAB Current Patient Location: LAB Accession/Order Number: [id number] Exam Date: 10/20/2024 14:42 Report Date: 10/20/2024 14:44 At the request of: ADRI BARRAGAN NP Procedure: XR knee RT 3V RIGHT KNEE - 3 views CLINICAL HISTORY: Right Knee Pain COMPARISON: None FINDINGS: Mild degenerative changes of the right knee with chondral calcinosis of the menisci. No acute bony process. XR/XR knee RT 3V IMPRESSION: MILD DEGENERATIVE CHANGES INVOLVING THE RIGHT KNEE WITHOUT ACUTE BONY PROCESS. Impression dictated by: Humza Booker Jr., D.O. 10/20/2024 2:44 PM Dictation Location: [place] [address] Electronically authenticated by: [id number] Y Date: 10/20/2024 14:44
--- NOTE | 2024-10-20 13:48 | XR_ITS ---
[place] [id number] Patient Name: KEE MANUEL MRN: [id number] date: 1955 Sex: F Assigned Patient Location: LAB Current Patient Location: LAB Accession/Order Number: [id number] Exam Date: 10/20/2024 14:41 Report Date: 10/20/2024 14:42 At the request of: ADRI BARRAGAN NP Procedure: XR lumbar spine 2-3V LUMBAR SPINE - 2 views CLINICAL HISTORY: Right Hip Pain COMPARISON: Lumbar spine 01/07/2023 FINDINGS: Vertebral body heights appear maintained. Mild diffuse degenerative disease with endplate and facet joint degenerative changes similar to the prior study. XR/XR lumbar spine 2-3V IMPRESSION: MILD DIFFUSE DEGENERATIVE DISEASE SIMILAR TO THE PRIOR STUDY. Impression dictated by: Humza Booker Jr., D.O. 10/20/2024 2:42 PM Dictation Location: [place] [address] Electronically authenticated by: [id number] Y Date: 10/20/2024 14:42
== END 2024-10-20 13:43 | disposition home or self-care (01) ==
LOC: LAB 13:44
PROVIDERS: PCP Nurse Practitioner; Visit Provider Nurse Practitioner
DX: M25.551 Pain in right hip (principal); M25.561 Pain in right knee; M51.369 Other intervertebral disc degeneration, lumbar region without mention of lumbar back pain or lower extremity pain
CPT/HCPCS: 72100; 73502; 73562

== ENCOUNTER 2024-10-26 08:34 | Outpatient (RCR) | payer MEDICARE, SELFPAY | END 2024-12-08 07:27 | disposition home or self-care (01) | LOC: PT 08:34 | PROVIDERS: PCP Nurse Practitioner; Visit Provider Nurse Practitioner | DX: M25.561 Pain in right knee (principal); M25.551 Pain in right hip | CPT/HCPCS: 20560; 97035; 97110; 97112; 97140; 97161; 97530 ==

== ENCOUNTER 2024-11-07 08:20 | Emergency (ER) | payer MEDICARE, SELFPAY ==
[2024-11-07 08:23] VITALS: BP 149/85; PULSE 97; TEMP 37.3; O2SAT 98; BMI 28.1
--- OUTSIDE RECORDS SUMMARY | 2024-11-07 08:28 | XMS_ITS | Continuity of Care Document ---
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 Social History Type Response Date Comment Sourc e This section is an empty social history section. [facility]
--- OUTSIDE RECORDS SUMMARY | 2024-11-07 08:29 | XMS_ITS | Patient Health Record ---
Author Organization [facility] Address [address] [place] [address] Care Team Providers Care Instructor Product Inspection Name Role Phone Caleb Alexandro Primary Care Provider [phone] Humza Weinberg Unavailable [phone] Yoly Florence Unavailable [phone] Marcela Sanchez Unavailable [phone] Reason For Referral No Information Medications Medication SIG (Take, Route, Fr equency, Duration) Notes Start Date End Date Status Ibuprofen 800 MG 1 tablet with food o r milk as needed Orally Three times a day 02/03/2024 Active Encounters Encounter Location Date Provider Diagnosis [facility] [address] [place] [address] 05/10/2024 Fabienne Moses [place] [address] [place] [address] 08/04/2024 Fabienne Moses [facility] [address] [place] [address] 01/02/2024 Yoly Florence Chronic periodontitis, generalized, slight K05.321 [facility] [address] [place] [address] 02/03/2024 Fabienne Moses Cracked tooth K03.81 and Partial loss of teeth, unspecified cause, class I K08.401 [facility] [address] [place] [address] 08/25/2024 Fabienne Moses Dental caries on pit and fissure surface penetrating into dentin K02.52 and Necrosis of pulp K04.1 [facility] [address] [place] [address] 10/07/2024 Humza Sultana [facility] [address] [place] [address] 07/05/2024 Yoly Florence Encounter for dental examination and cleaning with abnormal findings Z01.21 Assessments Encounter Date Diagnosis (ICD Code) Assessment Notes Treatment Notes Treatment Clinical Notes Section Notes 07/05/2024 Encounter for dental examination and cleaning with abnormal findings (ICD-10 - Z01.21) 02/03/2024 Cracked tooth (ICD-10 - K03.81) 01/02/2024 Chronic periodontitis, generalized, slight (ICD-10 - K05.321) 08/25/2024 Dental caries on pit and fissure surface penetrating into dentin (ICD-10 - K02.52) 08/25/2024 Necrosis of pulp (ICD-10 - K04.1) 02/03/2024 Partial loss of teeth, unspecified cause, class I (ICD-10 - K08.401) Plan Of Treatment Next Appt Details Provider Name:Humza Weinberg, 0 11/15/2024 10:30:00 AM, [address] [place], [address], Provider Name:Humza Weinberg, 0 12/17/2024 03:00:00 PM, [place], [address], Provider Name:Yoly Caballero on, 01/17/2025 10:30:00 AM, [address] [place], [address], Provider Name:Yoly Caballero on, 02/03/2025 09:00:00 AM, [address] [place], [address], Insurance Providers Payer Name Payer Address Payer Phone Subscriber Number Group Number Insured Name Patient Relationship to Insured Coverage Start Date Coverage End Date [employer] [address] [place] [address] [id number] [phone] MAR KEE Self - patient is the insured 5 5 MEDICARE CGS 1 TIFFANY RODRÍGUEZ [facility] [place] [address] [id number] MAR KEE Self - patient is the insured 3
--- OUTSIDE RECORDS SUMMARY | 2024-11-07 08:29 | XMS_ITS | Clinical Summary ---
Author Organization [employer] [facility] tem Address [id number] [place] [address] Care Team Providers Care Laundry Operator Wash Room Name Role Phone DedeStella patel Bola OCHOAN-EGGS INSPECTOR Primary Care Provider Social History Tobacco Use Types Packs/Day Years Used Date Smoking Tobacco: Never Assessed Childcare Answer Date Recorded Childcare Unknown 09/30/2018 Employment Answer Date Recorded Employment Unknown 09/30/2018 Comments Unknown Sex and Gender Information Value Date Recorded Sex Assigned at Not on file Legal Sex Female 11:47 AM EDT Gender Identity Not on file Sexual Orientation Not on file Plan of Treatment Health Maintenance Due Date Last Done Comments Depression Screening 1966 Tobacco Screening 1966 Adult BMI Screening 1972 DTaP,Tdap and Td Vaccines (1 - Tdap) 1973 Zoster (Shingles) Vaccine (2 of 3) 03/26/2016 01/30/2016 Fall Risk Screening 2019 COVID-19 Vaccine (2023-2 5 season) 2023 01/14/2023, 04/23/2022, 07/30/2021, Additional history exists Influenza Vaccine 12/20/2024 01/14/2023, , 01/22/2020, Additional history exists Medical Devices Not on file Insurance MEDICARE [place]ICAID [place] Care Teams Laundry Operator Wash Room Relationship Specialty Start Date End Date Stella Nieto, GIFTED PROGRAM TEACHER-EGGS INSPECTOR PCP - General Nurse Practitioner 06/05/23
--- OUTSIDE RECORDS SUMMARY | 2024-11-07 08:30 | XMS_ITS | Patient Health Record ---
Author Organization [facility] Address [address] [place] [address] Support Name Relationship Address Phone ROSA TEE Emergency Contact Unknown [phone] KEE MANUEL Guarantor Unknown [phone] Allergies Allergen (clinical drug ingredient) Drug/Non Drug Allergy documented on EMR Reaction Allergy Type Onset Date Status penicillin (uncoded) swelling,rash, difficulty breathing Allergy Active Reason For Referral No Information Medications Medication SIG (Take, Route, Frequency, Duration) Notes Start Date End Date Status DULoxetine Active levothyroxine Active omeprazole Active cetirizine Active atorvastatin Active Vitamin D3 Active alendronate Active lisinopril Active aspirin Active metFORMIN Active pioglitazone Active triamcinolone Active Ozempic Active Social History Tobacco Use: Social History Observation Description Date Details (start date - stop date) Never Smoker NA - NA AUDIT-C (Standard) Question Answer Notes Did you have a drink contain ing alcohol in the past year? Yes How often did you have six o r more drinks on one occasion in the past year? Never (0 point) How many drinks did you have on a typical day when you were drinking in the past year? 1 or 2 drinks (0 point) How often did you have a dri nk containing alcohol in the past year? 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
--- OUTSIDE RECORDS SUMMARY | 2024-11-07 08:31 | XMS_ITS | CCD ---
Author Organization [facility] Care Team Providers Care Battery Tester And Repairer Name Role Phone PHYSICIAN, DEFAULT Unavailable Unavailable PHYSICIAN, DEFAULT Unavailable Unavailable PHYSICIAN, DEFAULT Unavailable Unavailable PHYSICIAN, DEFAULT Unavailable Unavailable AICHHOLZ, STELLA J Primary Care Physician [phone] AICHHOLZ, PARASITOLOGY TEACHER STELLA Attending Unavailable AICHHOLZ, PARASITOLOGY TEACHER STELLA Primary Care Unavailable AICHHOLZ, PARASITOLOGY TEACHER STELLA Admitting Unavailable AICHHOLZ, PARASITOLOGY TEACHER STELLA Consulting Unavailable AICHHOLZ, PARASITOLOGY TEACHER STELLA Admitting Unavailable AICHHOLZ, PARASITOLOGY TEACHER STELLA Attending Unavailable AICHHOLZ, PARASITOLOGY TEACHER STELLA Primary Care Unavailable AICHHOLZ, PARASITOLOGY TEACHER STELLA Consulting Unavailable DR GEORGINA HATCH Consulting Unavailable AICHHOLZ, PARASITOLOGY TEACHER STELLA Attending Unavailable AICHHOLZ, PARASITOLOGY TEACHER STELLA Primary Care Unavailable AICHHOLZ, PARASITOLOGY TEACHER STELLA Admitting Unavailable AICHHOLZ, PARASITOLOGY TEACHER STELLA Consulting Unavailable AICHHOLZ, PARASITOLOGY TEACHER STELLA Attending Unavailable AICHHOLZ, PARASITOLOGY TEACHER STELLA Primary Care Unavailable AICHHOLZ, PARASITOLOGY TEACHER STELLA Referring Unavailable AICHHOLZ, PARASITOLOGY TEACHER STELLA Admitting Unavailable AICHHOLZ, PARASITOLOGY TEACHER STELLA Consulting Unavailable DR LIZY MEADE V Consulting Unavailable AICHHOLZ, PARASITOLOGY TEACHER STELLA Primary Care Unavailable AICHHOLZ, PARASITOLOGY TEACHER STLELA Attending Unavailable AICHHOLZ, PARASITOLOGY TEACHER STELLA Admitting Unavailable AICHHOLZ, PARASITOLOGY TEACHER STELLA Consulting Unavailable AICHHOLZ, PARASITOLOGY TEACHER STELLA Consulting Unavailable AICHHOLZ, PARASITOLOGY TEACHER STELLA Primary Care Unavailable AICHHOLZ, PARASITOLOGY TEACHER STELLA Attending Unavailable AICHHOLZ, PARASITOLOGY TEACHER STELLA Admitting Unavailable AICHHOLZ, PARASITOLOGY TEACHER STELLA Consulting Unavailable AICHHOLZ, PARASITOLOGY TEACHER STELLA Primary Care Unavailable AICHHOLZ, PARASITOLOGY TEACHER STELLA Attending Unavailable AICHHOLZ, PARASITOLOGY TEACHER STELLA Admitting Unavailable AICHHOLZ, PARASITOLOGY TEACHER STELLA Consulting Unavailable AICHHOLZ, PARASITOLOGY TEACHER STELLA Admitting Unavailable AICHHOLZ, PARASITOLOGY TEACHER STELLA Primary Care Unavailable AICHHOLZ, PARASITOLOGY TEACHER STELLA Attending Unavailable AICHHOLZ, PARASITOLOGY TEACHER STELLA Consulting Unavailable AICHHOLZ, PARASITOLOGY TEACHER STELLA Primary Care Unavailable AICHHOLZ, PARASITOLOGY TEACHER STELLA Attending Unavailable AICHHOLZ, PARASITOLOGY TEACHER STELLA Admitting Unavailable Melchor, Beth A Attending Unavailable Melchor, Faye A Attending Unavailable SALAM, Dias Referring Unavailable SALAM, Dias Attending Unavailable SALAM, Dias Attending Unavailable SALAM, Dias Admitting Unavailable Aicamanda Stella J Primary Care Provider MD Jean Quick Attending Provider JEAN QUICK Referring Unavailable MONICA NIETOA J Primary Care Unavailable Monica Nietoa J Primary Care Provider [phone] MD Jean Quick Attending Provider [phone] Ángel Iverson MD Primary Care Provider [phone] Gerson BOAT PILOT, Stella Unavailable Jean Quick Attending Unavailable Debora, Ahmad Admitting Unavailable Gerson Stella J Primary Care Unavailable Aicamanda, Stella J Primary Care Unavailable Debora, Ahmad Attending Unavailable Debora, Ahmad Admitting Unavailable AICHHOLZ, STELLA Attending Unavailable AICHHOLZ, STELLA Attending Unavailable AICHHOLZ, STELLA Attending Unavailable DEBORA, AHMAD F Attending Unavailable DEBORA, AHMAD F Referring Unavailable AICHHOLZ, STELLA Attending Unavailable AICHHOLZ, STELLA Attending Unavailable Allergies Allergy Classification Reported Allergen(s) Allergy Type Date of Onset Reaction(s) Facility (20 sources) Penicillins; Translations: [penicillins] Drug allergy 09-18-2013 [facility] Medications Current Medications Medication Drug Class(es) Dates Sig (Normalized) Sig (Original) alendronic acid 70 mg oral tablet (20 sources) Bisphosphonate Start: 09-15-2024 End: 12-08-2024 take 1 tablet by mouth in the morning alendronate (Fosamax) 70 MG tablet Indications: Age-related osteoporosis without current pathological fracture Take 1 tablet (70 mg) by mouth every 7 (seven) days Take in the morning with a full glass of water, on an empty stomach, and do not take anything else by mouth or lie down for the next 30 min. 12 tablet 1 09/15/2024 12/08/2024 Active Start: 07-07-2024 End: 10-12-2024 alendronate (Fosamax) 35 MG tablet Indications: Other specified disorders of bone density and structure, unspecified site Take 1 tablet (35 mg) by mouth every 7 (seven) days 12 tablet 1 07/20/2024 09/15/2024 Discontinued (Ineffective) Start: 10-07-2023 End: 12-30-2023 alendronate (Fosamax) 35 [...] Acid 7540 MG / POLYETHYLENE GLYCOL 3350 82544 MG / Potassium Chloride 1200 MG / Sodium Ascorbate 35859 MG / Sodium Chloride 3200 MG Powder for Oral Solution) / 1 (POLYETHYLENE GLYCOL 3350 136366 MG / Potassium Chloride 1000 MG / Sodium Chlori (1 source) Osmotic Laxative, Vitamin C Start: 08-19-2022 Plenvu oral powder for reconstitution See Instructions, 1 EA, Refill(s) 0, samples given to patient (Rx), See physicians instructions prior to procedure. Start Date: 08/19/22 Status: Ordered aspirin 81 mg delayed release oral tablet (20 sources) Platelet Aggregation Inhibitor, Nonsteroidal Anti-inflammatory Drug [...] sources) HMG-CoA Reductase Inhibitor Start: 07-07-2024 End: 01-16-2025 take 1 tablet by mouth in the evening atorvastatin (Lipitor) 80 MG tablet Indications: Mixed hyperlipidemia Take 1 tablet (80 mg) by mouth in the evening 90 tablet 1 10/18/2024 01/16/2025 Active Start: 11-10-2023 End: 05-31-2024 take 1 [...] sources) Histamine-1 Receptor Antagonist Start: 04-18-2024 End: 01-16-2025 take 1 tablet by mouth once daily cetirizine (ZyrTEC) 10 MG tablet Indications: Environmental allergies Take 1 tablet (10 mg) by mouth Daily 90 tablet 1 10/18/2024 01/16/2025 Active Start: 10-07-2023 take 1 tablet by [facility] once daily cetirizine (ZyrTEC) 10 MG tablet Indications: Environmental allergies Take 1 tablet (10 mg) by mouth Daily 30 tablet 5 10/07/2023 Active DULoxetine 30 mg delayed release oral capsule (20 sources) Serotonin and Norepinephrine Reuptake Inhibitor Start: 11-10-2023 End: 01-16-2025 take 1 capsule by mouth once daily DULoxetine (Cymbalta) [address] capsule Indications: Other specified anxiety disorders , Mild episode of recurrent major depressive disorder Take 1 capsule (30 mg) by mouth Daily 90 capsule 1 10/18/2024 01/16/2025 Active Start: 03-24-2017 take 30 mg by mouth once daily duloxetine 30 mg, Oral, Daily, Refills(s) 0, Depression Start Date: 03/24/17 Status: Ordered fluticasone propionate 0.05 mg/actuat metered dose nasal spray (20 sources) Corticosteroid Start: 06-24-2024 End: 11-17-2024 take 2 spray(s) nasal route once daily fluticasone (Flonase) 50 MCG/ACT nasal spray Indications: Environmental allergies Administer 2 sprays into each nostril Daily Shake gently. Before first use, prime pump. After use, clean tip and replace cap. 16 g 5 10/18/2024 11/17/2024 Active ibuprofen 800 mg oral tablet (20 sources) Nonsteroidal Anti-inflammatory Drug Start: 02-03-2024 take [...] tablet (20 sources) l-Thyroxine Start: 07-07-2024 End: 12-15-2024 take 1 tablet by mouth before mealtime levothyroxine (Synthroid, Levoxyl) 88 MCG tablet Indications: Hypothyroidism, unspecified type Take 1 tablet (88 mcg) by mouth in the morning. Take before meals. 90 tablet 1 09/16/2024 12/15/2024 Active Start: 10-08-2023 End: 06-17-2024 take 1 [...] Status: Ordered LORazepam 0.5 mg oral tablet (20 sources) Benzodiazepine Start: 08-17-2024 LORazepam (Ativan) 0.5 MG tablet Indications: Anxiety in acute stress reaction , Dental disease May take 1 pill night before dental procedure, and then repeat 2 hours prior to dental procedure, will need a truss driver helper 2 tablet 1 08/17/2024 Active Start: 10-07-2023 End: 01-28-2024 LORazepam (Ativan) 0.5 MG ta blet Indications: Anxiety in acute stress reaction (CMS/HCC) , Dental disease 1 dose the night before the scheduled dental procedure, then may repeat a dose in the morning about 2 hours prior to procedure. Must have a truss driver helper for this 2 tablet 01/28/2024 Active magnesium oxide 400 mg oral tablet (3 sources) Start: 10-07-2023 End: 01-07-2024 take 1 tablet by mouth once daily magnesium oxide (Mag-Ox) 400 mg tablet Indications: Hypomagnesemia Take 1 tablet (400 mg) by mouth Daily 90 tablet 1 10/07/2023 01/07/2024 Active 24 hr metFORMIN hydrochloride 750 mg extended release oral tablet (20 sources) Biguanide Start: 11-10-2023 End: 01-16-2025 take 1 tablet by mouth every twenty-four hours in the morning metFORMIN XR (Glucophage-XR) 750 MG 24 hr tablet Indications: Type 2 diabetes mellitus without complications (HCC) Take 1 tablet (750 mg) by mouth in the morning and 1 tablet (750 mg) in the evening. Take before meals. 180 tablet 1 10/18/2024 01/16/2025 Active Start: 03-24-2017 take 500 mg by mouth twice daily metformin 500 mg, Oral, BID, Refills(s) 0, Blood glucose Start Date: 03/24/17 Status: Ordered 24 hr metoprolol succinate 25 mg extended release oral tablet (20 sources) beta-Adrenergic Antonino Start: 07-22-2024 End: 01-09-2025 take 0.5 tablet by mouth once daily metoprolol succinate XL (Toprol-XL) 25 MG 24 hr tablet Indications: Primary hypertension Take 0.5 tablets (12.5 mg) by mouth Daily Do not crush or chew. 45 tablet 1 10/11/2024 01/09/2025 Active Start: 03-24-2017 metoprolol 100 mg ER Tab 100 mg = 1 tab(s), Oral, Refills(s) 0, High blood pressure Start Date: 03/24/17 Status: Ordered omeprazole 20 mg delayed release oral capsule (20 sources) Proton Pump Inhibitor Start: 07-07-2024 End: 01-16-2025 take 1 capsule by mouth before mealtime omeprazole (PriLOSEC) [address] capsule Indications: Gastroesophageal reflux disease without esophagitis Take 1 capsule (20 mg) by mouth in the morning. Take before meals. 90 capsule 1 10/18/2024 01/16/2025 Active Start: 10-07-2023 End: 01-05-2024 take 1 [...] stomach acid Start Date: 03/24/17 Status: Ordered Ozempic, 0.25 or 0.5 MG/DOSE , 2 MG/3ML solution pen-injector (9 sources) Start: 09-16-2024 End: 12-09-2024 Ozempic, 0.25 or 0.5 MG/DOSE , 2 MG/3ML solution pen-injector Indications: Type 2 diabetes mellitus without complications (HCC) Inject 0.5 mg as directed 1 (one) time per week 9 mL 1 09/16/2024 12/09/2024 Active Start: 09-16-2024 End: 12-09-2024 Ozempic, 0.25 or 0.5 MG/DOSE , 2 MG/3ML solution pen-injector Indications: Type 2 diabetes mellitus without complications Inject 0.5 mg as directed 1 (one) time per week 9 mL 1 09/16/2024 12/09/2024 Active pioglitazone 15 mg oral tablet (20 sources) Peroxisome Proliferator Receptor alpha Agonist, Peroxisome Proliferator Receptor gamma Agonist, Thiazolidinedione Start: 04-18-2024 End: 11-15-2024 take 1 tablet by mouth once daily pioglitazone (Actos) 15 MG tablet Indications: Type 2 diabetes mellitus without complications (HCC) Take 1 tablet (15 mg) by mouth Daily 90 tablet 1 08/17/2024 11/15/2024 Active Start: 10-07-2023 End: 01-05-2024 take 1 tablet by mouth once daily pioglitazone (Actos) 15 MG tablet Indications: Type 2 diabetes mellitus without complications (CMS/HCC) Take 1 tablet (15 mg) by mouth Daily 90 tablet 1 10/07/2023 Active Vitamin D (1 source) [...] by mouth Daily 07/22/2024 Discontinued (Therapy completed) Semaglutide,0.25 or 0.5MG/DO S, (Ozempic, 0.25 or 0.5 MG/DOSE,) 2 MG/3ML solution pen-injector (20 sources) Start: 07-07-2024 End: 09-16-2024 Semaglutide,0.25 or 0.5MG/DO S, (Ozempic, 0.25 or 0.5 MG/DOSE,) 2 MG/3ML solution pen-injector Indications: Type 2 diabetes mellitus without complications Inject 0.5 mg as directed 1 (one) time per week 9 mL 1 07/07/2024 09/16/2024 Discontinued Start: 07-07-2024 End: 09-29-2024 Semaglutide,0.25 or 0.5MG/DO [...] week 9 mL 1 10/07/2023 01/05/2024 Active Problems Active Problems Problem Classification Problem Date Documented Date Episodic/Chronic Anxiety disorders (20 sources) Anxiety; Translations: [Generalized anxiety disorder] Onset: 11-19-2022 01-28-2024 Chronic Diabetes mellitus with complications (19 sources) Type 2 diabetes mellitus; Translations: [Type [...] Onset: 11-19-2022 Resolved: 07-07-2024 11-19-2022 Chronic Other non-traumatic joint disorders (10 sources) Hip pain; Translations: [Pain in right hip] Onset: 10-18-2024 10-18-2024 Episodic Other non-traumatic joint disorders (9 sources) Pain in right knee; Translations: [Pain in joint, lower leg] Onset: 10-18-2024 10-18-2024 Episodic Other nutritional; endocrine; and metabolic disorders (2 [...] Hypothyroidism, unspecified; Translations: [Hypothyroidism] Onset: 10-02-2021 Chronic Unclassified (1 source) Right knee pain, unspecified chronicity 10-21-2024 Urinary tract infections (4 sources) Urinary tract [...] Onset: 11-19-2022 Resolved: 11-19-2022 11-19-2022 Chronic Other nutritional; endocrine; and metabolic disorders (20 sources) Unintentional weight loss; Translations: [Abnormal weight loss] Onset: 07-07-2024 07-07-2024 Episodic Other screening for suspected conditions (not mental disorders or infectious disease) (20 sources) Encounter for screening mammogram for malignant neoplasm of breast; Translations: [Patient encounter status] Onset: 07-04-2022 Episodic Residual codes; unclassified (20 sources) Family history of polyp of colon; Translations: [Family history of colonic polyps] Onset: 11-19-2022 Resolved: 11-19-2022 11-19-2022 Episodic Spondylosis; intervertebral disc disorders; other back problems (20 sources) Pain in the coccyx; Translations: [Sacrococcygeal disorders, not elsewhere classified] Onset: 07-07-2024 07-07-2024 Episodic Sprains and strains (20 sources) Strain of left trapezius muscle; Translations: [Strain of other muscles, fascia and tendons at shoulder and upper arm level, left arm, subsequent encounter] Onset: 04-02-2023 Resolved: 07-07-2023 07-07-2023 Episodic Unclassified (20 sources) Onset: 01-07-2024 01-07-2024 Viral infection (20 sources) Herpes zoster; Translations: [Zoster without complications] Onset: 04-02-2023 04-02-2023 Episodic Results Test Name Value Interpretation Reference Range Facility No Panel InformationOrdered By: Radiologist Radiology on 10-20-2024 [facility] Mot[employer] Count Work Phone: XR Hip - right [address] [place] [address] XRay Report Signed Patient: KEE ADORNO MR#: [id number] : 1955 Acct:[id number] Age/Sex: 69 / F ADM Date: 10/20/24 Loc: LAB Attending Dr: Stella Nieto NP Ordering Physician: Stella Nieto NP Date of Service: 10/20/24 Procedure(s): XR hip RT min 2V Accession Number(s): [id number] cc: Stella Nieto NP [place] [id number] Patient Name: KEE ADORNO MRN: [id number]:[id number] date: 1955 Sex: F Assigned Patient Location: LAB Current Patient Location: LAB Accession/Order Number: [id number] Exam Date: 10/20/2024 14:40 Report Date: 10/20/2024 14:41 At the request of: STELLA NIETO NP Procedure: XR hip RT min 2V RIGHT HIP - 2 views: CLINICAL HISTORY: Right Hip Pain COMPARISON: Pelvis 01/07/2023 FINDINGS: Mild degenerative changes involving the right hip without acute bony process. XR/XR hip RT min 2V IMPRESSION: MILD DEGENERATIVE CHANGES INVOLVING THE RIGHT HIP WITHOUT ACUTE BONY PROCESS.. Impression dictated by: Humza Booker Jr., D.O. 10/20/2024 2:41 PM Dictation Location: [place] [address] Electronically authenticated by: [id number] Y Date: 10/20/2024 14:41 Dictated By: Humza Booker M.D. Signed By: 10/20/24 1444 DD/ 1441 TD/TT: Receivable Executive: [facility] Radiology, Radiologist, MD - 10/20/2024 [place] [address] XRay Report Signed Patient: KEE ADORNO MR#: [id number] : 1955 Acct:[id number] Age/Sex: 69 / F ADM Date: 10/20/24 Loc: LAB Attending Dr: Stella Nieto NP Ordering Physician: Stella Nieto NP Date of Service: 10/20/24 Procedure(s): XR hip RT min 2V Accession Number(s): [id number] cc: Stella Nieto NP [place] [id number] Patient Name: KEE ADORNO MRN: [facility]:[id number] date: 1955 Sex: F Assigned Patient Location: LAB Current Patient Location: LAB Accession/Order Number: [id number] Exam Date: 10/20/2024 14:40 Report Date: 10/20/2024 14:41 At the request of: STELLA NIETO NP Procedure: XR hip RT min 2V RIGHT HIP - 2 views: CLINICAL HISTORY: Right Hip Pain COMPARISON: Pelvis 01/07/2023 FINDINGS: Mild degenerative changes involving the right hip without acute bony process. XR/XR hip RT min 2V IMPRESSION: MILD DEGENERATIVE CHANGES INVOLVING THE RIGHT HIP WITHOUT ACUTE BONY PROCESS.. Impression dictated by: Humza Booker Jr., D.O. 10/20/2024 2:41 PM Dictation Location: [facility] Electronically authenticated by: [id number] Y Date: 10/20/2024 14:41 Dictated By: Humza Booker M.D. Signed By: 10/20/24 1444 DD/ 40 TD/TT: Receivable Executive[facility] Rad[facility] Study observation (narrative) [facility] XR Knee - right [address] [place] [address] XRay Report Signed Patient: KEE ADORNO MR#: [id number] : 1955 Acct:[id number] Age/Sex: 69 / F ADM Date: 10/20/24 Loc: LAB Attending Dr: Stella Nieto NP Ordering Physician: Stella Nieto NP Date of Service: 10/20/24 Procedure(s): XR knee RT 3V Accession Number(s): [id number] cc: Stella Nieto NP [place] [address] Patient Name: KEE ADORNO MRN: [id number]:[id number] date: 1955 Sex: F Assigned Patient Location: LAB Current Patient Location: LAB Accession/Order Number: [id number] Exam Date: 10/20/2024 14:42 Report Date: 10/20/2024 14:44 At the request of: STELLA NIETO NP Procedure: XR knee RT 3V RIGHT KNEE - 3 views CLINICAL HISTORY: Right Knee Pain COMPARISON: None FINDINGS: Mild degenerative changes of the right knee with chondral calcinosis of the menisci. No acute bony process. XR/XR knee RT 3V IMPRESSION: MILD DEGENERATIVE CHANGES INVOLVING THE RIGHT KNEE WITHOUT ACUTE BONY PROCESS. Impression dictated by: Humza Booker Jr. DFernandoOFernando 10/20/2024 2:44 PM Dictation Location: [facility] Electronically authenticated by: [id number] Y Date: 10/20/2024 14:44 Dictated By: Humza Booker M.D. Signed By: 10/20/24 1447 DD/ 43 TD/TT: Receivable Executive: [facility] Radiology, Radiologist, - 10/20/2024 The [place] [id number] XRay Report Signed Patient: KEE ADORNO MR#: [id number] : 1955 Acct:[id number] Age/Sex: 69 / F ADM Date: 10/20/24 Loc: LAB Attending Dr: Stella Nieto BOAT PILOT Ordering Physician: Stella Nieto NP Date of Service: 10/20/24 Procedure(s): XR knee RT 3V Accession Number(s): [id number] cc: Stella Nieto NP [place] [address] Patient Name: KEE ADORNO MRN: [facility]:[id number] date: 1955 Sex: F Assigned Patient Location: LAB Current Patient Location: LAB Accession/Order Number: [id number] Exam Date: 10/20/2024 14:42 Report Date: 10/20/2024 14:44 At the request of: STELLA NIETO NP Procedure: XR knee RT 3V RIGHT KNEE - 3 views CLINICAL HISTORY: Right Knee Pain COMPARISON: None FINDINGS: Mild degenerative changes of the right knee with chondral calcinosis of the menisci. No acute bony process. XR/XR knee RT 3V IMPRESSION: MILD DEGENERATIVE CHANGES INVOLVING THE RIGHT KNEE WITHOUT ACUTE BONY PROCESS. Impression dictated by: Humza Booker Jr., D.O. 10/20/2024 2:44 PM Dictation Location: [place] [address] Electronically authenticated by: [id number] Y Date: 10/20/2024 14:44 Dictated By: Humza Booker M.D. Signed By: 10/20/24 1447 DD/ 43 TD/TT: Receivable Executive: [facility] Radiology Study observation (narrative) [facility] XR Knee - right 3 ViewsOrder ed By: Radiologist Radiology on 10-20-2024 [facility] Work Phone: XR LUMBAR SPINE 2 OR 3Von The [address] [address] XRay Report Signed Patient: KEE ADORNO MR#: [id number] : 1955 Acct:[id number] Age/Sex: 69 / F ADM Date: 10/20/24 Loc: LAB Attending Dr: Stella Nieto NP Ordering Physician: Stella Nieto NP Date of Service: 10/20/24 Procedure(s): XR lumbar spine 2-3V Accession Number(s): [id number] cc: Stella Nieto NP [address] [address] Patient Name: KEE ADORNO MRN: [facility]:[id number] date: 1955 Sex: F Assigned Patient Location: LAB Current Patient Location: LAB Accession/Order Number: [id number] Exam Date: 10/20/2024 14:41 Report Date: 10/20/2024 14:42 At the request of: STELLA NIETO NP Procedure: XR lumbar spine 2-3V LUMBAR SPINE - 2 views CLINICAL HISTORY: Right Hip Pain COMPARISON: Lumbar spine 01/07/2023 FINDINGS: Vertebral body heights appear maintained. Mild diffuse degenerative disease with endplate and facet joint degenerative changes similar to the prior study. XR/XR lumbar spine 2-3V IMPRESSION: MILD DIFFUSE DEGENERATIVE DISEASE SIMILAR TO THE PRIOR STUDY. Impression dictated by: Humza Booker Jr., D.O. 10/20/2024 2:42 PM Dictation Location: [place] [address] Electronically authenticated by: [id number] Y Date: 10/20/2024 14:42 Dictated By: Humza Booker M.D. Signed By: 10/20/24 1444 DD/ 41 TD/TT: Receivable Executive: [facility] Radiology, Radiologist, MD - 10/20/[address] [address] XRay Report Signed Patient: KEE ADORNO MR#: [id number] : 1955 Acct:[id number] Age/Sex: 69 / F ADM Date: 10/20/24 Loc: LAB Attending Dr: Stella Nieto NP Ordering Physician: Stella Nieto NP Date of Service: 10/20/24 Procedure(s): XR lumbar spine 2-3V Accession Number(s): [id number] cc: Stella Nieto NP [place] [address] Patient Name: KEE ADORNO MRN: [id number]:[id number] date: 1955 Sex: F Assigned Patient Location: LAB Current Patient Location: LAB Accession/Order Number: [id number] Exam Date: 10/20/2024 14:41 Report Date: 10/20/2024 14:42 At the request of: STELLA NIETO NP Procedure: XR lumbar spine 2-3V LUMBAR SPINE - 2 views CLINICAL HISTORY: Right Hip Pain COMPARISON: Lumbar spine 01/07/2023 FINDINGS: Vertebral body heights appear maintained. Mild diffuse degenerative disease with endplate and facet joint degenerative changes similar to the prior study. XR/XR lumbar spine 2-3V IMPRESSION: MILD DIFFUSE DEGENERATIVE DISEASE SIMILAR TO THE PRIOR STUDY. Impression dictated by: Humza Booker Jr., D.O. 10/20/2024 2:42 PM Dictation Location: [place] [address] Electronically authenticated by: [id number] Y Date: 10/20/2024 14:42 Dictated By: Humza Booker M.D. Signed By: 10/20/24 1444 DD/ 144 TD/TT: Receivable Executive: [facility] Radiology Study observation (narrative) [facility] HbA1c (Bld) [Mass fraction]o n 10-18-2024 Interpretation and review of laboratory results Abnormal [facility] Laboratory - Hematology and Cell countson 10-18-2024 HbA1c (Bld) [Mass fraction] 5.9 % [facility] Magnesiumon 03-22-2024 Magnesium [Mass/Vol] 1.8 mg/dL Low 1.9-2.7 The Pending Sale To [facility] Comment on above: Performed By: #### P TH, RENAL, [id number], MG #### [address] Parathyroid Hormone Intacton 03-22-2024 Parathyroid Hormone Intact 67.5 pg/mL Normal 12-88 The Pending [facility] To [facility] Comment on above: Result Comment: PERF ORMED BY: [place] [address] PATHOLOGIST [employer]IN[employer] KIRSTIN GUZMAN M.D. Performed By: #### P TH, RENAL, [id number], MG #### [address] Renal Function Panelon 03-22 Albumin [Mass/Vol] 4.0 g/dL Normal 3.5-5.7 The [facility] Comment on above: Performed By: #### P TH, RENAL, [id number], MG #### [address] Anion gap [Moles/Vol] 12.1 mmol/L Normal 6.0-15.0 Th [facility] Comment on above: Performed By: #### P TH, RENAL, [id number], MG #### [address] Calcium [Mass/Vol] 10.3 mg/dL Normal 8.6-10.3 The [facility] Comment on above: Performed By: #### P TH, RENAL, [id number], MG #### [address] Chloride [Moles/Vol] 101 mmol/L Normal 98-107 The Pending [facility] To [facility] Comment on above: Performed By: #### P TH, RENAL, [id number], MG #### [address] CO2 [Moles/Vol] 30.6 mmol/L Normal 21.0-31.0 [facility] Comment on above: Performed By: #### P TH, RENAL, [id number], MG #### [facility] [address] Creatinine [Mass/Vol] 0.76 mg/dL Normal 0.60-1.20 The [facility] Comment on above: Performed By: #### P TH, RENAL, [id number], MG #### [facility] [address] [place] [address] [place] GFR/1.73 sq M.predicted MDRD (S/P/Bld) [Vol rate/Area] mL/min/{1.73_m2} Normal [facility] Comment on above: Performed By: #### P TH, RENAL, [id number], MG #### [facility] [address] Glucose [Mass/Vol] 108 mg/dL High 70-100 The [facility] Comment on above: Result Comment: [place] Glucose Reference Range is dependent on time and content of last meal. Glucose of more than 200 mg/dL in a nonstressed, ambulatory subject supports the diagnosis of Diabetes Mellitus. ADA recommended reference range Performed By: #### P TH, RENAL, [id number], MG #### [facility] [address] [place] [address] [place] Phosphate [Mass/Vol] 3.7 mg/dL Normal 2.5-4.5 [facility] Comment on above: Performed By: #### P TH, RENAL, [id number], MG #### [place] [address] [place] Potassium [Moles/Vol] 4.7 mmol/L Normal 3.5-5.1 [facility] Comment on above: Performed By: #### P TH, RENAL, [id number], MG #### [facility] [address] [place] [address] [place] Sodium [Moles/Vol] 139 mmol/L Normal 136-145 [facility] Comment on above: Performed By: #### P TH, RENAL, [id number], MG #### [facility] [address] [place] [address] [place] Urea nitrogen [Mass/Vol] 13 mg/dL Normal 7-25 [facility] Comment on above: Performed By: #### P TH, RENAL, [id number], MG #### [address] Vitamin D 25 Hydroxy Totalon 03-22-2024 Vitamin D 25 Hydroxy Total 34.5 ng/mL Normal 30-100 The [facility] Comment on above: Result Comment: JUAN PABLO MIN D STATUS 25(OH)VITAMIN D RANGE (ng/mL) Deficient <20 Insufficient 20 to <30 Sufficient 30 to 100 Reference: Verito MF,Magali NC, Yumiko SCHWARZ, et al. Evaluation,treatment, and prevention of vitamin D deficiency; an Endocrine Society clinical practice guideline. JCEM. 2010; 96(7):1911-30. PERFORMED BY: [place] [address] PATHOLOGIST [employer] KIRSTIN GUZMAN M.D. Performed By: #### P TH, RENAL, [id number], MG #### [place] [id number] [facility] MLR HEMOGLOBIN A1Con 15-2 024 Glucose [Mass/Vol] 123 mg/dL [facility] HbA1c (Bld) [Mass fraction] 5.9 % 4.5 - 6.2 % [facility] Comment on above: ADA RECOMMENDED LIMI T 4.0 - 6.0 ADA THERAPEUTIC TARGET < 7.0 ACTION SUGGESTED > 7.0 [facility] Albumin [Mass/volume] in Ser um or Plasma by Bromocresol green (BCG) dye binding methoOrdered By: Jean Quick on 09-25-2023 Albumin BCG dye [Mass/Vol] 4.2 g/dL 3.5-5.7 [facility] Calcium [Mass/volume] in Ser um or PlasmaOrdered By: Jean Quick on 09-25-2023 Calcium [Mass/Vol] 10.3 mg/dL Normal 8.6-10.[address] [facility] Comment on above: Performed By: #### V [id number], MG, PTH, RENAL #### [address] Carbon dioxide, total [Moles /volume] in Serum or PlasmaOrdered By: Jean Quick on 09-25-2023 CO2 [Moles/Vol] 29.4 mmol/L Normal 21.0-31.0 [facility] Comment on above: Performed By: #### V [id number], MG, PTH, RENAL #### [facility] [address] [place] [address] [place] Chloride [Moles/volume] in S rosalind or PlasmaOrdered By: Jean Quick on 09-25-2023 Chloride [Moles/Vol] 103 mmol/L Normal 98-107 [facility] Comment on above: Performed By: #### V [id number], MG, PTH, RENAL #### [facility] [address] Creatinine [Mass/volume] in Serum or PlasmaOrdered By: Jean Quick on 09-25-2023 Creatinine [Mass/Vol] 0.75 mg/dL Normal 0.60-1.20 [facility] Comment on above: Performed By: #### V [id number], MG, PTH, RENAL #### [facility] [address] [place] [address] [place] Glucose [Mass/volume] in Ser um or PlasmaOrdered By: Jean Quick on 09-25-2023 Glucose [Mass/Vol] 108 mg/dL High 70-[address] [facility] Comment on above: ADA recommended refe rence rangeRandom Glucose Reference Range is dependent on time and content of last meal. Glucose of more than 200 mg/dL in a nonstressed, ambulatory subject supports the diagnosis of Diabetes Mellitus. Result Comment: [place] om Glucose Reference Range is dependent on time and content of last meal. Glucose of more than 200 mg/dL in a nonstressed, ambulatory subject supports the diagnosis of Diabetes Mellitus. ADA recommended reference range Performed By: #### V [id number], MG, PTH, RENAL #### [facility] [address] [place] [address] [place] Magnesium [Mass/volume] in S rosalind or PlasmaOrdered By: Jean Quick on 09-25-2023 Magnesium [Mass/Vol] 1.8 mg/dL Low 1.9-2.7 [facility] Comment on above: Performed By: #### V [id number], MG, PTH, RENAL #### [facility] [address] [place] [address] No Panel InformationOrdered By: Jean Quick on 09-25-2023 Estimated GFR (CKD-EPI) > 60.0 mL/Min [facility] Creatinine Clearance (Chem N/A [facility] Parathyrin.intact [Mass/volu me] in Serum or PlasmaOrdered By: Jean Quick on 09-25-2023 Parathyrin.intact [Mass/Vol] 74.4 pg/mL [facility] Parathyroid Hormone Intacton 09-25-2023 Parathyroid Hormone Intact 74.4 pg/mL Normal [facility] Comment on above: Result Comment: PERF ORMED BY: [place] [address] PATHOLOGIST [employer] EZEQUIEL FIGUEREDO M.D. Performed By: #### V [id number], MG, PTH, RENAL #### [facility] [address] [place] [address] Phosphate [Mass/volume] in S rosalind or PlasmaOrdered By: Jean Quick on 09-25-2023 Phosphate [Mass/Vol] 3.3 mg/dL Normal 2.5-4.5 [facility] Comment on above: Performed By: #### V [id number], MG, PTH, RENAL #### [facility] [address] [place] [address] Potassium [Moles/volume] in Serum or PlasmaOrdered By: Jean Quick on 09-25-2023 Potassium [Moles/Vol] 4.3 mmol/L Normal 3.5-5.1 [facility] Comment on above: Performed By: #### V [id number], MG, PTH, RENAL #### [facility] [address] [place] [address] Renal Function Panelon 09-24 Albumin [Mass/Vol] 4.2 g/dL Normal 3.5-5.7 [facility] Comment on above: Performed By: #### V [id number], MG, PTH, RENAL #### [place] [address] [place] GFR/1.73 sq M.predicted MDRD (S/P/Bld) [Vol rate/Area] mL/min/{1.73_m2} Normal [facility] Comment on above: Performed By: #### V [id number], MG, PTH, RENAL #### [address] Serum or plasma anion gap de terminationOrdered By: Jean Quick on 09-25-2023 Anion gap [Moles/Vol] 11.9 mmol/L Normal 6.0-15.0 [facility] Comment on above: Performed By: #### V [id number], MG, PTH, RENAL #### [address] Sodium [Moles/volume] in Ser um or PlasmaOrdered By: Jean Quick on 09-25-2023 Sodium [Moles/Vol] 140 mmol/L Normal 136-[address] [facility] Comment on above: Performed By: #### V [id number], MG, PTH, RENAL #### [address] Urea nitrogen [Mass/volume] in Serum or PlasmaOrdered By: Jean Quick on 09-25-2023 Urea nitrogen [Mass/Vol] 11 mg/dL Normal 7-25 [facility] Comment on above: Performed By: #### V [id number], MG, PTH, RENAL #### [address] Vitamin D 25 Hydroxy Totalon 09-25-2023 Vitamin D 25 Hydroxy Total 36.4 ng/mL Normal 30-100 [facility] Comment on above: Result Comment: JUAN PABLO MIN D STATUS 25(OH)VITAMIN D RANGE (ng/mL) Deficient <20 Insufficient 20 to <30 Sufficient 30 to 100 Reference: Holnaomi MCGHEE,Magali GRIJALVA, Yumiko SCHWARZ, et al. Evaluation,treatment, and prevention of vitamin D deficiency; an Endocrine Society clinical practice guideline. JCEM. 2010; 96(7):191-. PERFORMED BY: [facility] [address] [facility] [place] [id number] PATHOLOGIST [employer]IN[employer] EZEQUIEL FIGUEREDO M.D. Performed By: #### V [id number], MG, PTH, RENAL #### [facility] [address] [place] [id number] [facility] Vitamin D+Metabolites [Mass/ volume] in Serum or PlasmaOrdered By: Jean Quick on 09-25-2023 Vitamin D+Metabolites [Mass/Vol] 36.4 ng/mL 30-100 [facility] Comment on above: VITAMIN D STATUS 25( [place])VITAMIN D RANGE (ng/mL) Deficient <20 Insufficient 20 to <30Sufficient 30 to 100Reference: Magali Oliveros, Yumiko SCHWARZ, et al. Evaluation,treatment, and prevention of vitamin D deficiency; an Endocrine Society clinical practice guideline. JCEM. 2010; 96(7):1911-. CALCIUMon 06-05-2023 Calcium [Mass/Vol] 10.3 mg/dL Normal 8.5-10.5 [facility] Comment on above: Performed By: #### 1 7861-6, 01619-0, 2731-8, 26516-5 #### [facility] ([id number]) [address], [address] [place] [address] MAGNESIUMon 06-05-2023 Magnesium [Mass/Vol] 1.7 mg/dL Low 1.8-2.6 [facility] Comment on above: Performed By: #### 1 7861-6, 92816-9, 2731-8, 35412-0 #### [facility] ([id number]) [address], [address] [place] [address] Parathyrin.intact [Mass/Vol] on 06-05-2023 PTH INTACT 71 pg/mL Normal 12-88 [facility] Comment on above: Performed By: #### 1 7861-6, 63402-8, 2731-8, 36485-4 #### [facility] ([id number]) [address], [address] [place] [address] RENAL PANELon 06-05-2023 Albumin [Mass/Vol] 4.3 g/dL Normal 3.2-5.3 [facility] Comment on above: Performed By: #### R ENAL #### [facility] ([id number]) [address], [address] [place] [address] Anion gap [Moles/Vol] 8 mmol/L Normal 5-15 [facility] Comment on above: Performed By: #### R ENAL #### [facility] ([id number]) [address], [address] [place] [address] Calcium [Mass/Vol] 10.6 mg/dL High 8.5-10.5 [facility] Comment on above: Performed By: #### R ENAL #### [facility] ([id number]) [address] [place] [address] Chloride [Moles/Vol] 98 mmol/L Normal 98-109 [facility] Comment on above: Performed By: #### R ENAL #### [facility] ([id number]) [address] [place] [address] CO2 [Moles/Vol] 31 mmol/L Normal 22-32 [facility] Comment on above: Performed By: #### R ENAL #### [facility] ([id number]) [address] [place] [address] Creatinine [Mass/Vol] 0.82 mg/dL Normal 0.40-1.00 [facility] Comment on above: Result Comment: METH OD TRACEABLE TO IDMS STANDARD Performed By: #### R ENAL #### [facility] ([id number]) [address], [address] [place] [address] GFR/1.73 sq M.predicted among non-blacks MDRD (S/P/Bld) [Vol rate/Area] 77 mL/min/{1.73_m2} Normal >59 [facility] Comment on above: Result Comment: Reported eGFR is based on the CKD-EPI 2020 equation that does not use a race coefficient. Performed By: #### R ENAL #### [facility] ([id number]) [address], [address] [place] [address] Glucose [Mass/Vol] 156 mg/dL High 65-99 [facility] Comment on above: Performed By: #### R ENAL #### [facility] ([id number]) [address] [place] [address] Phosphate [Mass/Vol] 3.2 mg/dL Normal 2.4-4.9 [facility] Comment on above: Performed By: #### R ENAL #### [facility] ([id number]) [address] [place] [address] Potassium [Moles/Vol] 4.2 mmol/L Normal 3.5-5.0 [facility] Comment on above: Performed By: #### R ENAL #### [facility] ([id number]) [address] [place] [address] Sodium [Moles/Vol] 137 mmol/L Normal 134-146 [facility] Comment on above: Performed By: #### R ENAL #### [facility] ([id number]) [address] [place] [address] Urea nitrogen [Mass/Vol] 11 mg/dL Normal 5-27 [facility] Comment on above: Performed By: #### R ENAL #### [facility] ([id number]) [address], [address] [place] [address] Vitamin D+Metabolites [Mass/ Vol]on 06-05-2023 VITAMIN D 25 HYD TOT 36.7 ng/mL Normal 30-100 [facility] Comment on above: Result Comment: Vitamin D status 25 [place] Vitamin D Deficiency <20 ng/mL Insufficiency 20-29 ng/mL Sufficiency 30-100 ng/mL Toxicity >100 ng/mL NOTE: A pediatric reference range has not been established by the education and outreach coordinator of this kit. The [place] [employer] recommends a Vitamin D level of = or >20ng/mL in infants and children. Performed By: #### 1 7861-6, 00158-0, 2731-8, 06201-1 #### [facility] ([id number]) [address] [address] [place] [address] Albumin [Mass/volume] in Ser um or Plasma by Bromocresol green (BCG) dye binding methoOrdered By: Jean Quick on 03-26-2023 Albumin BCG dye [Mass/Vol] 4.3 g/dL 3.5-5.7 [facility] Calcium [Mass/volume] in Ser um or PlasmaOrdered By: Jean Quick on 03-26-2023 Calcium [Mass/Vol] 10.5 mg/dL 8.6-10.[address] [facility] Carbon dioxide, total [Moles /volume] in Serum or PlasmaOrdered By: Jean Quick on 03-26-2023 CO2 [Moles/Vol] 29.4 mmol/L 21.0-31.0 [facility] Chloride [Moles/volume] in S rosalind or PlasmaOrdered By: Jean Quick on 03-26-2023 Chloride [Moles/Vol] 104 mmol/L 98-107 [facility] Creatinine [Mass/volume] in Serum or PlasmaOrdered By: Jean Quick on 03-26-2023 Creatinine [Mass/Vol] 0.79 mg/dL 0.60-1.20 [facility] Glucose [Mass/volume] in Ser um or PlasmaOrdered By: Jean Quick on 03-26-2023 Glucose [Mass/Vol] 136 mg/dL 70-[address] [facility] Comment on above: ADA recommended refe rence rangeRandom Glucose Reference Range is dependent on time and content of last meal. Glucose of more than 200 mg/dL in a nonstressed, ambulatory subject supports the diagnosis of Diabetes Mellitus. Magnesium [Mass/volume] in S rosalind or PlasmaOrdered By: Jean Quick on 03-26-2023 Magnesium [Mass/Vol] 1.6 mg/dL 1.9-2.7 [facility] No Panel InformationOrdered By: Jean Quick on 03-26-2023 Estimated GFR (CKD-EPI) > 60.0 mL/Min [facility] Creatinine Clearance (Chem N/A [facility] Parathyrin.intact [Mass/volu me] in Serum or PlasmaOrdered By: Jean Quick on 03-26-2023 Parathyrin.intact [Mass/Vol] 105.1 pg/mL [facility] Phosphate [Mass/volume] in S rosalind or PlasmaOrdered By: Jean Quick on 03-26-2023 Phosphate [Mass/Vol] 3.1 mg/dL 2.5-4.5 [facility] Potassium [Moles/volume] in Serum or PlasmaOrdered By: Jean Quick on 03-26-2023 Potassium [Moles/Vol] 4.8 mmol/L 3.5-5.1 [facility] Serum or plasma anion gap de terminationOrdered By: Jean Quick on 03-26-2023 Anion gap [Moles/Vol] 11.4 mmol/L 6.0-15.0 [facility] Sodium [Moles/volume] in Ser um or PlasmaOrdered By: Jean Quick on 03-26-2023 Sodium [Moles/Vol] 140 mmol/L 136-[address] [facility] Urea nitrogen [Mass/volume] in Serum or PlasmaOrdered By: Jean Quick on 03-26-2023 Urea nitrogen [Mass/Vol] 8 mg/dL 7-25 [facility] Vitamin D+Metabolites [Mass/ volume] in Serum or PlasmaOrdered By: Jean Quick on 03-26-2023 Vitamin D+Metabolites [Mass/Vol] 38.1 ng/mL 30-100 [facility] Comment on above: VITAMIN D STATUS 25( [...] 6 years(2029) due to tubular adenoma Normal [facility] XR DEXA BONE DENSITYon 09-02 XR [...] GEORGINA HATCH Date: 2022-09-02 13:17 Normal [facility] Outside Colonoscopyon 2022 Outside Colonoscopy [id number]:127 Normal [facility] Physician Orderon 08-27-2022 Physician Order [id number]:127 Normal [facility] CULTURE URINEon 08-12-2022 CULTURE URINE Culture Observations: NO GROWTH. Normal [facility] Comment on above: Performed By: #### T SH, FT3 #### [facility] [address] [place] [address] Dr. Herve Machado UA RANDOM W/MICROSCOPICon BACTERIA NONE SEEN Normal NONE SEEN [facility] Comment on above: Performed By: #### T SH, FT3 #### [facility] [address] [place] [address] Dr. Herve Machado Bilirubin Ql (U) Negative Normal NEGATIVE [facility] Comment on above: Performed By: #### T SH, FT3 #### [facility] [address] [place] [address] Dr. Herve Machado CAST NONE SEEN Normal NONE SEEN [facility] Comment on above: Performed By: #### T SH, FT3 #### [facility] [address] [place] [address] Dr. Herve Machado Clarity (U) CLEAR Normal CLEAR [facility] Comment on above: Performed By: #### T SH, FT3 #### [facility] [address] [place] [address] Dr. Herve Machado Color (U) LT. YELLOW Normal YELLOW [facility] Comment on above: Performed By: #### T SH, FT3 #### [facility] [address] [place] [address] Dr. Herve Machado Crystals LM Nom (Urine sed) NONE SEEN Normal NONE SEEN [facility] Comment on above: Performed By: #### T SH, FT3 #### [facility] [address] [place] [address] Dr. Herve Machado Epithelial cells LM Ql (Urine sed) RARE Normal NONE SEEN /RARE [facility] Comment on above: Performed By: #### T SH, FT3 #### [facility] [address] [place] [address] Dr. Herve Machado Glucose Ql (U) 500 mg/dl Abnormal NEGATIVE [facility] Comment on above: Performed By: #### T SH, FT3 #### [facility] [address] [place] [address] Dr. Herve Machado Hemoglobin Ql (U) Negative Normal NEGATIVE [facility] Comment on above: Performed By: #### T SH, FT3 #### [facility] [address] [place] [address] Dr. Herve Machado Ketones Ql (U) Negative Normal NEGATIVE [facility] Comment on above: Performed By: #### T SH, FT3 #### [facility] [address] [place] [address] Dr. Herve Machado LEUKOCYTES Negative Normal NEGATIVE [facility] Comment on above: Performed By: #### T SH, FT3 #### [facility] [address] [place] [address] Dr. Herve Machado MUCOUS NONE SEEN Normal NONE SEEN [facility] Comment on above: Performed By: #### T SH, FT3 #### [facility] [address] [place] [address] Dr. Herve Machado Nitrite Ql (U) Negative Normal NEGATIVE [facility] Comment on above: Performed By: #### T SH, FT3 #### [facility] [address] [place] [address] Dr. Herve Machado pH (U) 5.0 [pH] Normal 5-9 [facility] Comment on above: Performed By: #### T SH, FT3 #### [facility] [address] [place] [address] Dr. Herve Machado RBC 0-2 Normal 0-2 [facility] Comment on above: Performed By: #### T SH, FT3 #### [facility] [address] [place] [address] Dr. Herve Machado SPEC GRAVITY 1.020 Normal 1.005-<=1.025 [facility] Comment on above: Performed By: #### T SH, FT3 #### [facility] [address] [place] [address] [address] Herve Machado UA PROTEIN Negative Normal NEGATIVE/ TRACE [facility] Comment on above: Performed By: #### T SH, FT3 #### [facility] [address] [place] [address] [address] Herve Machado Urobilinogen Qn (U) 0.2 {Connie'U}/dL Normal 0.2 - 1. 0 [facility] Comment on above: Performed By: #### T SH, FT3 #### [facility] [address] [place] [address] [address] Herve Machado WBC NONE SEEN Normal NONE SEEN [facility] Comment on above: Performed By: #### T SH, FT3 #### [facility] [address] [place] [address] [address] Herve Machado Consent for Procedure/Surger yon 08-05-2022 Consent for Procedure/Surgery [id number]#[id number]:127 Normal [facility] Ambulatory Visit Summaryon 0 08-02-2022 Ambulatory Visit Summary KARTHIKKEE OSORIO Davon :1955 Visit Date:08/02/2022 Ambulatory Visit Instructions Your [...] See instructions Prior to colonoscopy. Pickup at [facility] 142 Unchanged alendronate (alendronate 35 mg oral tablet) [...] physician if questions or concerns Pharmacy Information [facility] 1429: [address] [place], [place] [id number] [phone] Allergies penicillins (unknown) Problems Ongoing - Any [...] including vitamins, herbs, eye drops, creams, and libs-ltm-wsrgisz medicines. ? Any problems you or family [...] anything starting (more content not included)... Normal [facility] Gastroenterology Office/Clin ic Noteon 08-02-2022 Gastroenterology [...] in 2013 she had previous colonoscopy in [place], [place] that showed polyps- no record to [...] 1 EA, Refill(s) 0, Prior to colonoscopy., [facility]29, 139.7, cm, 08/02/22 [...] 08/02/2022 Immunizations Vaccine Date Status SARS-CoV-2 (COVID-19) mRNAMUL.[id number] 04/23/2022 Recorded SARSCoV2 mRNA(tozinamer-tri s-sucros) vac 07/30/2021 [...] Recorded influenza, whole 02/06/2009 Recorded Normal [facility] Comment on above: Result Comment: Elec tronically Signed By: Faye Roche CNP\.reyes\Date and Time Signed: 08/02/22 10:38 EDT Patient [...] including vitamins, herbs, eye drops, creams, and uplb-iaq-idtagwu medicines. ? Any problems you or family [...] air t (more content not included)... Normal [facility] Provider Letteron 07-16-2022 Provider Letter July 16, 2022 [address]EE ADORNO [address] [place] [phone] KEE ADORNO 1955 Dear Kee, We have been trying to reach you with no success. It is important that you return our call regarding your referral sent by your primary care physician to see our office upon receiving this letter. Also, at the time of your call, please provide us with your current information. Thank you for your prompt attention to this matter. Sincerely, [facility]. Normal [facility] CBC AUTO DIFFon 07-15-2022 BASO # 0.0 103/ul Normal 0.0-0.1 [facility] Comment on above: Performed By: #### C BC #### [facility] [address] [place] [address] Dr. Herve Machado Basophils/100 WBC (Bld) 0.4 % Normal 0.2-2.0 [facility] Comment on above: Performed By: #### C BC #### [facility] [address] [place] [address] Dr. Herve Machado EO # 0.2 103/ul Normal 0.0-0.7 [facility] Comment on above: Performed By: #### C BC #### [facility] [address] [place] [address] Dr. Herve Machado Eosinophils/100 WBC (Bld) 2.7 % Normal 0.9-7.0 [facility] Comment on above: Performed By: #### C BC #### [facility] [address] [place] [address] Dr. Herve Machado Erythrocyte distribution width (RBC) [Ratio] 12.3 % Normal 11.0-15.0 [facility] Comment on above: Performed By: #### C BC #### [facility] [address] [place] [address] Dr. Herve Machado Hematocrit (Bld) [Volume fraction] 43.8 % Normal 36.0-48.0 [facility] Comment on above: Performed By: #### C BC #### [facility] [address] [place] [address] Dr. Herve Machado Hemoglobin (Bld) [Mass/Vol] 14.1 g/dL Normal 12.0-16.0 [facility] Comment on above: Performed By: #### C BC #### [facility] [address] [place] [address] Dr. Herve Machado IG # 0.01 10e3/ul Normal 0.00-0.03 [facility] Comment on above: Performed By: #### C BC #### [facility] [address] [place] [address] Dr. Herve Machado IG % 0.1 % Normal 0.0-0.5 [facility] Comment on above: Performed By: #### C BC #### [facility] [address] [place] [address] Dr. Herve Machado LYMPH # 1.7 103/ul Normal 1.2-3.8 [facility] Comment on above: Performed By: #### C BC #### [facility] [address] [place] [address] Dr. Herve Machado Lymphocytes/100 WBC (Bld) 23.6 % Normal 20.5-60.0 [facility] Comment on above: Performed By: #### C BC #### [facility] [address] [place] [address] Dr. Herve Machado MANUAL DIFF REQ NO Normal [facility] Comment on above: Performed By: #### C BC #### [facility] [address] [place] [address] Dr. Herve Machado MCH (RBC) [Entitic mass] 31.1 pg Normal 26.7-34.0 [facility] Comment on above: Performed By: #### C BC #### [facility] [address] [place] [address] Dr. Herve Machado MCHC (RBC) [Mass/Vol] 32.2 g/dL Normal 29.9-35.2 [facility] Comment on above: Performed By: #### C BC #### [facility] [address] [place] [address] Dr. Herve Machado MCV (RBC) [Entitic vol] 96.5 fL Normal 81.0-99.0 [facility] Comment on above: Performed By: #### C BC #### [facility] [address] [place] [address] Dr. Herve Machado MONO # 0.4 103/ul Normal 0.3-0.8 [facility] Comment on above: Performed By: #### C BC #### [facility] [address] [place] [address] Dr. Herve Machado Monocytes/100 WBC (Bld) 5.8 % Normal 1.7-12.0 [facility] Comment on above: Performed By: #### C BC #### [facility] [address] [place] [address] Dr. Herve Machado NEUT # 4.9 103/ul Normal 1.4-6.5 [facility] Comment on above: Performed By: #### C BC #### [facility] [address] [place] [address] Dr. Herve Machado Neutrophils/100 WBC (Bld) 67.4 % Normal 43.0-75.0 [facility] Comment on above: Performed By: #### C BC #### [facility] [address] [place] [address] Dr. Herve Machado Platelet mean volume (Bld) [Entitic vol] 9.9 fL Normal 9.5-13.5 [facility] Comment on above: Performed By: #### C BC #### [facility] [address] [place] [address] Dr. Herve Machado PLT 229 103/ul Normal 150-450 [facility] Comment on above: Performed By: #### C BC #### [facility] [address] [place] [address] Dr. Herve Machado RBC 4.54 106/ul Normal 4.20-5.40 [facility] Comment on above: Performed By: #### C BC #### [facility] [address] [address] [address] Herve Machado WBC 7.3 103/ul Normal 4.0-11.0 [facility] Comment on above: Performed By: #### C BC #### [facility] [address] [address] [address] Herve Machado GLYCOHEMOGLOBIN A1Con 2022 ADA RECOMMENDATION SEE BELOW Normal [facility] Comment on above: Result Comment: ADA RECOMMENDED LIMIT 4.0 - 6.0 ADA THERAPEUTIC TARGET < 7.0 ACTION SUGGESTED > 7.0 Performed By: #### T SH, FT3 #### [facility] [address] [place] [address] Dr. Herve Machado Glucose [Mass/Vol] 160 mg/dL Normal [facility] Comment on above: Performed By: #### T SH, FT3 #### [facility] [address] [place] [address] Dr. Herve Machado HbA1c (Bld) [Mass fraction] 7.2 % Critically high 4.5-6.2 [facility] Comment on above: Performed By: #### T SH, FT3 #### [facility] [address] [place] [address] Dr. Herve Machado LIPID PROFILEon 07-15-2022 CHOL-HDL RATIO NORM SEE BELOW Normal [facility] Comment on above: Result Comment: 3.3 - 4.4 LOW RISK 4.4 - 7.1 AVERAGE RISK 7.1 - 11.0 MODERATE RISK >11.0 HIGH RISK Performed By: #### T SH, FT3 #### [facility] [address] [place] [address] Dr. Herve Machado Cholesterol [Mass/Vol] 136 mg/dL Normal <=200 Th [facility] Comment on above: Performed By: #### T SH, FT3 #### [facility] [address] [address] [address] Herve Machado Cholesterol in HDL [Mass/Vol] 51 mg/dL Normal 40-60 [facility] Comment on above: Performed By: #### T SH, FT3 #### [facility] [address] [address] [address] Herve Machado Cholesterol in LDL [Mass/Vol] 68.6 mg/dL Normal [facility] Comment on above: Performed By: #### T SH, FT3 #### [facility] [address] [place] [address] Dr. Herve Machado Cholesterol.total/Choles terol in HDL [Mass ratio] 2.7 {ratio} Normal [facility] Comment on above: Performed By: #### T SH, FT3 #### [facility] [address] [place] [address] Dr. Herve Machado HDL NORMAL > or = 60 mg/dl - LOW CARDIOVASCULAR RISK <40 mg/dl - HIGH CARDIOVASCULAR RISK Normal [facility] Comment on above: Performed By: #### T SH, FT3 #### [facility] [address] [place] [address] Dr. Herve Machado LDL CALC NORMAL SEE BELOW Normal [facility] Comment on above: Result Comment: <100 mg/dl OPTIMAL 100 - 129 mg/dl NEAR OR ABOVE OPTIMAL 130 - 159 mg/dl BORDERLINE HIGH 160 - 189 mg/dl HIGH >190 mg/dl VERY HIGH Performed By: #### T SH, FT3 #### [facility] [address] [place] [address] Dr. Herve Machado Triglyceride [Mass/Vol] 82 mg/dL Normal <=150 T [facility] Comment on above: Performed By: #### T SH, FT3 #### [facility] [address] [place] [address] Dr. Herve Machado VLDL CALC 16.4 mg/dL Normal [facility] Comment on above: Performed By: #### T SH, FT3 #### [facility] [address] [place] [address] Dr. Herve Machado MICROALBUMIN, RAND URon 06-20 mALB <1.3 Normal <=30.0 [facility] Comment on above: Performed By: #### T SH, FT3 #### [facility] [address] [place] [address] Dr. Herve Machado PROF 14(COMP METB)on 023 Albumin [Mass/Vol] 3.6 g/dL Normal 3.4-5.0 [facility] Comment on above: Performed By: #### T SH, FT3 #### [facility] [address] [place] [address] Dr. Herve Machado Albumin/Globulin [Mass ratio] 1.1 {ratio} Normal [facility] Comment on above: Performed By: #### T ASIA, FT3 #### [facility] [address] [place] [address] Dr. Herve Machado ALP [Catalytic activity/Vol] 64 U/L Normal 46-116 [facility] Comment on above: Performed By: #### T ASIA, FT3 #### [facility] [address] [place] [address] Dr. Herve Machado ALT [Catalytic activity/Vol] 21 U/L Normal 14-59 [facility] Comment on above: Performed By: #### T ASIA, FT3 #### [facility] [address] [place] [address] Dr. Herve Machado Anion gap [Moles/Vol] 11.2 mmol/L Normal [facility] Comment on above: Performed By: #### T SH, FT3 #### [facility] [address] [place] [address] Dr. Herve Machado AST [Catalytic activity/Vol] 18 U/L Normal 15-37 [facility] Comment on above: Performed By: #### T SH, FT3 #### [facility] [address] [place] [address] Dr. Herve Machado Bilirubin [Mass/Vol] 0.6 mg/dL Normal 0.2-1.0 [facility] Comment on above: Performed By: #### T SH, FT3 #### [facility] [address] [place] [address] Dr. Herve Machado Calcium [Mass/Vol] 10.2 mg/dL Critically high 8.5-10.1 [facility] Comment on above: Performed By: #### T SH, FT3 #### [facility] [address] [place] [address] Dr. Herve Machado Chloride [Moles/Vol] 107 mmol/L Normal 98-107 [facility] Comment on above: Performed By: #### T SH, FT3 #### [facility] [address] [place] [address] Dr. Herve Machado CO2 [Moles/Vol] 28.3 mmol/L Normal 21.0-32.0 [facility] Comment on above: Performed By: #### T SH, FT3 #### [facility] [address] [place] [address] Dr. Herve Machado Creatinine [Mass/Vol] 0.66 mg/dL Normal 0.55-1.02 [facility] Comment on above: Performed By: #### T SH, FT3 #### [facility] [address] [place] [address] Dr. Herve Machado EGFR-AF WELSH >60 Normal >=60 [facility] Comment on above: Performed By: #### T SH, FT3 #### [facility] [address] [place] [address] Dr. Herve Machado EGFR-NON AF WELSH >60 Normal >=60 [facility] Comment on above: Performed By: #### T SH, FT3 #### [facility] [address] [place] [address] Dr. Herve Machado Globulin (S) [Mass/Vol] 3.3 g/dL Normal [facility] Comment on above: Performed By: #### T SH, FT3 #### [facility] [address] [place] [address] Dr. Herve Machado Glucose [Mass/Vol] 154 mg/dL Critically high 74-106 [facility] Comment on above: Performed By: #### T SH, FT3 #### [facility] [address] [place] [address] Dr. Herve Machado Potassium [Moles/Vol] 4.5 mmol/L Normal 3.5-5.1 [facility] Comment on above: Performed By: #### T SH, FT3 #### [facility] [address] [place] [address] Dr. Herve Machado Protein [Mass/Vol] 6.9 g/dL Normal 6.4-8.2 [facility] Comment on above: Performed By: #### T SH, FT3 #### [facility] [address] [place] [address] Dr. Herve Machado Sodium [Moles/Vol] 142 mmol/L Normal 136-145 [facility] Comment on above: Performed By: #### T SH, FT3 #### [facility] [address] [place] [address] Dr. Herve Machado Urea nitrogen [Mass/Vol] 11.0 mg/dL Normal 7.0-18.0 [facility] Comment on above: Performed By: #### T SH, FT3 #### [facility] [address] [place] [address] Dr. Herve Machado Urea nitrogen/Creatinine [Mass ratio] 16.7 mg/mg Normal [facility] Comment on above: Performed By: #### T SH, FT3 #### [facility] [address] [place] [address] Dr. Herve Machado UA RANDOM W/MICROSCOPICon BACTERIA MODERATE Abnormal NONE SEEN [facility] Comment on above: Performed By: #### U AMIC #### [facility] [address] [place] [address] Dr. Herve Machado Bilirubin Ql (U) Negative Normal NEGATIVE [facility] Comment on above: Performed By: #### U AMIC #### [facility] [address] [place] [address] Dr. Herve Machado CAST NONE SEEN Normal NONE SEEN [facility] Comment on above: Performed By: #### U AMIC #### [facility] [address] [address] [address] Herve Machado Clarity (U) CLEAR Normal CLEAR [facility] Comment on above: Performed By: #### U AMIC #### [facility] [address] [address] [address] Herve Machado Color (U) LT. YELLOW Normal YELLOW [facility] Comment on above: Performed By: #### U AMIC #### [facility] [address] [address] [address] Herve Machado Crystals LM Nom (Urine sed) NONE SEEN Normal NONE SEEN [facility] Comment on above: Performed By: #### U AMIC #### [facility] [address] [place] [address] Dr. Herve Machado Epithelial cells LM Ql (Urine sed) FEW Abnormal NONE SEEN /RARE [facility] Comment on above: Performed By: #### U AMIC #### [facility] [address] [place] [address] Dr. Herve Machado Glucose Ql (U) Negative Normal NEGATIVE [facility] Comment on above: Performed By: #### U AMIC #### [facility] [address] [place] [address] Dr. Herve Machado Hemoglobin Ql (U) Negative Normal NEGATIVE [facility] Comment on above: Performed By: #### U AMIC #### [facility] [address] [place] [address] Dr. Herve Machado Ketones Ql (U) Negative Normal NEGATIVE The [facility] Comment on above: Performed By: #### U AMIC #### [facility] [address] [place] [address] Dr. Herve Machado LEUKOCYTES Negative Normal NEGATIVE [facility] Comment on above: Performed By: #### U AMIC #### [facility] [address] [place] [address] Dr. Herve Machado MUCOUS NONE SEEN Normal NONE SEEN [facility] Comment on above: Performed By: #### U AMIC #### [facility] [address] [place] [address] Dr. Herve Machado Nitrite Ql (U) Positive Abnormal NEGATIVE [facility] Comment on above: Performed By: #### U AMIC #### [facility] [address] [address] [address] Herve Machado pH (U) 6.0 [pH] Normal 5-9 [facility] Comment on above: Performed By: #### U AMIC #### [facility] [address] [address] [address] Herve Machado RBC 0-2 Normal 0-2 [facility] Comment on above: Performed By: #### U AMIC #### [facility] [address] [address] [address] Herve Machado SPEC GRAVITY 1.010 Normal 1.005-<=1.025 [facility] Comment on above: Performed By: #### U AMIC #### [facility] [address] [place] [address] Dr. Herve Machado UA PROTEIN Negative Normal NEGATIVE/ TRACE [facility] Comment on above: Performed By: #### U AMIC #### [facility] [address] [address] [address] Herve Machado Urobilinogen Qn (U) 0.2 {Connie'U}/dL Normal 0.2 - 1. 0 [facility] Comment on above: Performed By: #### U AMIC #### [facility] [address] [place] [address] Dr. Herve Machado WBC 2-5 Abnormal NONE SEEN [facility] Comment on above: Performed By: #### U AMIC #### [facility] [address] [place] [address] Dr. Herve Machado Physician Referralon 023 Physician Referral [phone] [id number] Normal [facility] MG MAMM SCREEN 3D VEDA CADon 07-04-2022 MG MAMM SCREEN 3D VEDA CAD Patient: KEE ADORNO Exam Date: 07/04/2022 : 1955 Gender:F Ordering : ARLEEN NIETO [employer] Admission #: [id number] Family : Order #: [id number] CLICK HERE TO VIEW EXAM RADIOLOGY REPORT [...] pancreatic cancer at age 64. LOCATION: [facility] BREAST COMPOSITION: Scattered areas fibroglandular density. [...] Meade MD on 07/04/2022 at 10:24 Normal [facility] GLYCOHEMOGLOBIN A1Con 2021 ADA RECOMMENDATION SEE BELOW Normal [facility] Comment on above: Result Comment: ADA RECOMMENDED LIMIT 4.0 - 6.0 ADA THERAPEUTIC TARGET < 7.0 ACTION SUGGESTED > 7.0 Performed By: #### A 1C #### [facility] [address] [address] [address] Herve Machado Glucose [Mass/Vol] 189 mg/dL Normal [facility] Comment on above: Performed By: #### A 1C #### [facility] [address] [address] [address] Herve Machado HbA1c (Bld) [Mass fraction] 8.2 % Critically high 4.5-6.2 [facility] Comment on above: Performed By: #### A 1C #### [facility] [address] [address] [address] Herve Machado FREE T3on 02-28-2022 FREE T3 2.44 pg/mlL Normal 2.18-3.98 [facility] Comment on above: Performed By: #### T SH, FT3 #### [facility] [address] [place] [address] Dr. Herve Machado FREE T4on 02-28-2022 Free T4 [Mass/Vol] 1.48 ng/dL Critically high 0.76-1.46 [facility] Comment on above: Performed By: #### T SH, FT3 #### [facility] [address] [place] [address] Dr. Herve Machado TSHon 02-28-2022 TSH 1.115 uIU/mL Normal 0.358-3.740 [facility] Comment on above: Performed By: #### T SH, FT3 #### [facility] [address] [place] [address] Dr. Herev Machado FREE T3on 11-27-2021 FREE T3 2.54 pg/mlL Normal 2.18-3.98 [facility] Comment on above: Performed By: #### T SH, FT3 #### [facility] [address] [place] [address] Dr. Herve Machado FREE T4on 11-27-2021 Free T4 [Mass/Vol] 1.85 ng/dL Critically high 0.76-1.46 [facility] Comment on above: Performed By: #### T SH, FT3 #### [facility] [address] [place] [address] Dr. Herve Machado TSHon 11-27-2021 TSH 0.228 uIU/mL Critically low 0.358-3.740 [facility] Comment on above: Performed By: #### T SH, FT3 #### [facility] [address] [place] [address] Dr. Herve Machado FREE T3on 10-25-2021 FREE T3 2.50 pg/mlL Normal 2.18-3.98 [facility] Comment on above: Performed By: #### T SH, FT3 #### [facility] [address] [place] [address] Dr. Herve Machado FREE T4on 10-25-2021 Free T4 [Mass/Vol] 1.61 ng/dL Critically high 0.76-1.46 [facility] Comment on above: Performed By: #### T SH, FT3 #### [facility] [address] [place] [address] Dr. Herve Machado TSHon 10-25-2021 TSH 1.949 uIU/mL Normal 0.358-3.740 [facility] Comment on above: Performed By: #### T SH, FT3 #### [facility] [address] [place] [address] Dr. Herve Machado FREE T4on 09-28-2021 Free T4 [Mass/Vol] 1.50 ng/dL Critically high 0.76-1.46 [facility] Comment on above: Performed By: #### T SH, FT3 #### [facility] [address] [place] [address] Dr. Herve Machado LIPID PROFILEon 09-28-2021 CHOL-HDL RATIO NORM SEE BELOW Normal [facility] Comment on above: Result Comment: 3.3 - 4.4 LOW RISK 4.4 - 7.1 AVERAGE RISK 7.1 - 11.0 MODERATE RISK >11.0 HIGH RISK Performed By: #### L IPID, TSH #### [facility] [address] [place] [address] Dr. Herve Machado Cholesterol [Mass/Vol] 223 mg/dL Critically high <=200 [facility] Comment on above: Performed By: #### L IPID, TSH #### [facility] [address] [place] [address] Dr. Herve Machado Cholesterol in HDL [Mass/Vol] 53 mg/dL Normal 40-60 [facility] Comment on above: Performed By: #### L IPID, TSH #### [facility] [address] [place] [address] Dr. Herve Machado Cholesterol in LDL [Mass/Vol] 152.2 mg/dL Normal [facility] Comment on above: Performed By: #### L IPID, TSH #### [facility] [address] [place] [address] Dr. Herve Machado Cholesterol.total/Choles terol in HDL [Mass ratio] 4.2 {ratio} Normal [facility] Comment on above: Performed By: #### L IPID, TSH #### [facility] [address] [address] [address] Herve Machado HDL NORMAL > or = 60 mg/dl - LOW CARDIOVASCULAR RISK <40 mg/dl - HIGH CARDIOVASCULAR RISK Normal [facility] Comment on above: Performed By: #### L IPID, TSH #### [facility] [address] [address] [address] Herve Machado LDL CALC NORMAL SEE BELOW Normal [facility] Comment on above: Result Comment: <100 mg/dl OPTIMAL 100 - 129 mg/dl NEAR OR ABOVE OPTIMAL 130 - 159 mg/dl BORDERLINE HIGH 160 - 189 mg/dl HIGH >190 mg/dl VERY HIGH Performed By: #### L IPID, TSH #### [facility] [address] [address] [address] Herve Machado Triglyceride [Mass/Vol] 89 mg/dL Normal <=150 [facility] Comment on above: Performed By: #### L IPID, TSH #### [facility] [address] [address] [address] Herve Machado VLDL CALC 17.8 mg/dL Normal [facility] Comment on above: Performed By: #### L IPID, TSH #### [facility] [address] [place] [address] Dr. Herve Machado TSHon 09-28-2021 TSH 1.423 uIU/mL Normal 0.358-3.740 [facility] Comment on above: Performed By: #### T SH, FT3 #### [facility] [address] [address] [address] Herve Machado TSH RANGE SEE BELOW Normal [facility] Comment on above: Result Comment: <0.3 4 UIU/ml HYPERTHYROID 0.34-5.60 UIU/ml EUTHYROID >5.60 UIU/ml HYPOTHYROID Performed By: #### T SH, FT3 #### [facility] [address] [address] [address] Herve Machado Vital Signs Date Time Vital Sign Value Performing Clinician Alexis dobson 10-18-2024 08:51-0400 Body mass index (BMI) [Ratio] 28.45 kg/m2 Stellaeverette Nieto [employer] Work Phone: [facility] 10-18-2024 08:51-0400 Body temperature 98.1 [degF] Stella Gerson [employer] Work Phone: [facility] 10-18-2024 08:51-0400 Body weight 55.52 kg Stella Aichkrishanz [employer] Work Phone: [facility] 10-18-2024 08:51-0400 Diastolic blood pressure 68 mm[Hg] Stella Aichkrishanz [employer] Work Phone: [facility] 10-18-2024 08:51-0400 Heart rate 80 /min Stella Aichholz [employer] Work Phone: [facility] 10-18-2024 08:51-0400 Respiratory rate 18 /min Stella Aichkrishanz [employer] Work Phone: [facility] 10-18-2024 08:51-0400 SaO2% (BldA) [Mass fraction] 99 % Stella Dedehkrishanz [employer] Work Phone: [facility] 10-18-2024 08:51-0400 Systolic blood pressure 128 mm[Hg] Stella Aichholz [employer] Work Phone: [facility] 08-17-2024 08:57-0400 Body mass index (BMI) [Ratio] 29.01 kg/m2 Stella Aichholz [employer] Work Phone: [facility] 08-17-2024 08:57-0400 Body temperature 98.1 [degF] Stella Dedehholz [employer] Work Phone: [facility] 08-17-2024 08:57-0400 Body weight 56.61 kg Stella Aichholz [employer] Work Phone: [facility] 08-17-2024 08:57-0400 Diastolic blood pressure 72 mm[Hg] Stella Aichholz [employer] Work Phone: [facility] 08-17-2024 08:57-0400 Heart rate 81 /min Stella Aichholz [employer] Work Phone: [facility] 08-17-2024 08:57-0400 Respiratory rate 18 /min Stella Aichholz [employer] Work Phone: [facility] 08-17-2024 08:57-0400 SaO2% (BldA) [Mass fraction] 99 % Stella Aichholz [employer] Work Phone: [facility] 08-17-2024 08:57-0400 Systolic blood pressure 112 mm[Hg] Stella Aichholz [employer] Work Phone: [facility] 07-22-2024 13:51-0400 Body height 139.7 cm Stella Aichholz [employer] Work Phone: [facility] 07-22-2024 13:51-0400 Body mass index (BMI) [Ratio] 28.68 kg/m2 Stella Aichholz [employer] Work Phone: [facility] 07-22-2024 13:51-0400 Body temperature 98.71 [degF] Stella Aichholz [employer] Work Phone: [facility] 07-22-2024 13:51-0400 Body weight 55.97 kg Stella Aichholz [employer] Work Phone: [facility] 07-22-2024 13:51-0400 Diastolic blood pressure 76 mm[Hg] Stella Aichholz [employer] Work Phone: [facility] 07-22-2024 13:51-0400 Heart rate 112 /min Stella Aichholz [employer] Work Phone: [facility] 07-22-2024 13:51-0400 Respiratory rate 18 /min Stella Aichholz [employer] Work Phone: [facility] 07-22-2024 13:51-0400 SaO2% (BldA) [Mass fraction] 98 % Stella Nieto [employer] Work Phone: [facility] 07-22-2024 13:51-0400 Systolic blood pressure 118 mm[Hg] Stella Gerson [employer] Work Phone: [facility] 03-29-2024 09:10-0500 Body height 139.7 cm Jean Quick MD Work Phone: [facility] 03-29-2024 09:10-0500 Body mass index (BMI) [Ratio] 31.38 kg/m2 Jean Quick MD Work Phone: [facility] 03-29-2024 09:10-0500 Body weight 61.24 kg Jean Quick MD Work Phone: [facility] 03-29-2024 09:10-0500 Diastolic blood pressure 64 mm[Hg] eJan Quick MD Work Phone: [facility] 03-29-2024 09:10-0500 Heart rate 100 /min Jean Quick MD Work Phone: [facility] 03-29-2024 09:10-0500 Respiratory rate 20 /min Jean Quick MD Work Phone: [facility] 03-29-2024 09:10-0500 Systolic blood pressure 124 mm[Hg] Jean Quick MD Work Phone: [facility] 01-07-2024 09:06-0400 Body mass index (BMI) [Ratio] 31.75 kg/m2 Stella Nieto [employer] Work Phone: [facility] 01-07-2024 09:06-0400 Body temperature 98.29 [degF] Stella Nieto [employer] Work Phone: [facility] 01-07-2024 09:06-0400 Body weight 61.96 kg Stella Nieto [employer] Work Phone: [facility] 01-07-2024 09:06-0400 Diastolic blood pressure 76 mm[Hg] Stella Molinabreezy [employer] Work Phone: [facility] 01-07-2024 09:06-0400 Heart rate 107 /min Stella Nieto [employer] Work Phone: [facility] 01-07-2024 09:06-0400 Respiratory rate 19 /min Stella Molinabreezy [employer] Work Phone: [facility] 01-07-2024 09:06-0400 SaO2% (BldA) [Mass fraction] 97 % Stella Molinaz [employer] Work Phone: [facility] 01-07-2024 09:06-0400 Systolic blood pressure 116 mm[Hg] Stella Molinaz [employer] Work Phone: [facility] Healthcare Encounters Encounter Date Encounter Type Care Provider Facility Start: 10-21-2024 End: 10-21-2024 Orders Only Stella Mendezsachin [employer] Work Phone: [facility] Comment on above: Right knee pain, uns pecified chronicity (Primary Dx); Right hip pain; Facet arthropathy, lumbar Start: 10-20-2024 End: 10-20-2024 Clinisync Result Encounter Stella Nieto [employer] Work Phone: [facility] External Department Unsolicited Start: 10-20-2024 End: 10-20-2024 Clinisync Result Encounter Stella Nieto [employer] Work Phone: [facility] External Department Unsolicited Start: 10-18-2024 End: 10-18-2024 Bamboo flowsheet Stella Mendezsachin [employer] Work Phone: [facility] Start: 10-18-2024 End: 10-18-2024 Bamboo flowsheet Stella Mendezkrishanz [employer] Work Phone: [facility] Start: 10-18-2024 End: 10-18-2024 Office outpatient visit 25 minutes Stella Mendezsachin [employer] Work Phone: [facility] Comment on above: Type 2 diabetes leah itus without complication, without long- term current use of insulin (HCC) (Primary Dx); Primary hypertension ; Gastroesophageal reflux disease without esophagitis; Hypothyroidism, unspecified type ; Mixed hyperlipidemia ; Right hip pain; Right knee pain, unspecified chronicity; Environmental allergies; Other specified anxiety disorders; Mild episode of recurrent major depressive disorder ; Type 2 diabetes mellitus without complications (HCC) Start: 10-18-2024 End: 10-18-2024 ambulatory STELLA AICHHOLZ Not Available Start: 10-10-2024 End: 10-11-2024 Refill Stella Aichholz [employer] Work Phone: [facility] Comment on above: Primary hypertension Start: 09-16-2024 End: 09-16-2024 Refill Stella Aichholz [employer] Work Phone: [facility] Comment on above: Hypothyroidism, unsp ecified type (CMS/HCC); Essential (primary) hypertension (CMS/HCC); Type 2 diabetes mellitus without complications Start: 09-15-2024 End: 09-15-2024 Refill Stella Aichholz [employer] Work Phone: [facility] Comment on above: Age-related osteopor osis without current pathological fracture (CMS/HCC) (Primary Dx) Start: 08-17-2024 End: 08-17-2024 Bamboo flowsheet Stella Aichholz [employer] Work Phone: [facility] Start: 08-17-2024 End: 08-17-2024 Bamboo flowsheet Stella Aichholz [employer] Work Phone: [facility] Start: 08-17-2024 End: 08-17-2024 Office outpatient visit 15 minutes Stlela Aichholz [employer] Work Phone: [facility] Comment on above: Primary hypertension (CMS/HCC) (Primary Dx); Environmental allergies; Anxiety in acute stress reaction (CMS/HCC); Dental disease Start: 08-17-2024 End: 08-17-2024 Refill Stella Aichholz [employer] Work Phone: [facility] Comment on above: Type 2 diabetes leah itus without complications Start: 07-22-2024 End: 07-22-2024 Bamboo flowsheet Stella Aicleydaholz [employer] Work Phone: [facility] Start: 07-22-2024 End: 07-22-2024 Bamboo flowsheet Stella Aichholz [employer] Work Phone: [facility] Start: 07-22-2024 End: 07-22-2024 Office outpatient visit 25 minutes Stella Gerson [employer] Work Phone: [facility] Comment on above: Primary hypertension (CMS/HCC) (Primary Dx); Type 2 diabetes mellitus with other specified complication; Mixed hyperlipidemia (CMS/HCC); Weight loss, unintentional; Pain in the coccyx Start: 07-22-2024 End: 07-22-2024 ambulatory STELLA AICHHOLZ Not Available Start: 07-20-2024 End: 07-20-2024 Refill Stella Aichholz [employer] Work Phone: [facility] Comment on above: Other specified diso rders of bone density and structure, unspecified site Start: 07-07-2024 End: 07-07-2024 ambulatory STELLA AICHHOLZ Not Available Start: 06-24-2024 End: 06-24-2024 Orders Only Stella Aichholz [employer] Work Phone: [facility] Comment on above: Environmental allerg ies (Primary Dx) Start: 05-19-2024 End: 05-19-2024 Refill Stella Aichholz [employer] Work Phone: [facility] Comment on above: Type 2 diabetes leah itus without complications (CMS/HCC); Other specified anxiety disorders; Mild episode of recurrent major depressive disorder (HCC) (CMS/HCC) Start: 04-16-2024 End: 04-18-2024 Refill Stella Aichholz [employer] Work Phone: [facility] Comment on above: Type 2 diabetes leah itus without complications (CMS/HCC); Environmental allergies Start: 04-10-2024 End: 04-11-2024 Refill Stella Nieto [employer] Work Phone: [facility] Comment on above: Type 2 diabetes leah itus without complications (CMS/HCC) Start: 03-29-2024 End: 03-29-2024 Bamboo flowsheet Jean Quick MD Work Phone: [facility] Start: 03-29-2024 End: 03-29-2024 Bamboo flowsheet Jean Quick MD Work Phone: [facility] Start: 03-29-2024 End: 03-29-2024 Office outpatient visit 25 minutes Jean Quick MD Work Phone: [facility] Comment on above: Hypercalcemia (Prima ry Dx); Vitamin D deficiency; Hypomagnesemia; Osteopenia of multiple sites Start: 03-29-2024 End: 03-29-2024 ambulatory JEAN QUICK Not Available Start: 03-22-2024 End: 03-22-2024 ambulatory Stella Nieto Facility:[facility] Start: 03-19-2024 End: 03-19-2024 Refill Stella Nieto [employer] Work Phone: [facility] Comment on above: Hypothyroidism, unsp ecified type (CMS/HCC) Start: 03-02-2024 End: 03-02-2024 Refill Melissa Olguin MA [facility] Comment on above: Type 2 diabetes leah itus without complications (CMS/HCC); Mixed hyperlipidemia (CMS/HCC) Start: 02-03-2024 End: 02-03-2024 Clinisync Result Encounter Stella Nieto [employer] Work Phone: [facility] External Department Unsolicited Start: 02-03-2024 End: 02-03-2024 Clinisync Result Encounter Stella Nieto [employer] Work Phone: [facility] External Department Unsolicited Start: 01-28-2024 End: 01-28-2024 Refill Stella Aichholz [employer] Work Phone: [facility] Comment on above: Anxiety in acute str ess reaction (CMS/HCC) (Primary Dx); Dental disease Start: 01-07-2024 End: 01-07-2024 Bamboo flowsheet Stella Aichholz [employer] Work Phone: [facility] Start: 01-07-2024 End: 01-07-2024 Bamboo flowsheet Stella Aichholz [employer] Work Phone: [facility] Start: 01-07-2024 End: 01-07-2024 Patient encounter procedure Stella Aichholz [employer] Work Phone: [facility] Healthcare Comment on above: Encounter for subseq [...] Start: 12-27-2023 End: 12-29-2023 Refill Stella Aichholz [employer] Work Phone: [facility] Comment on above: Hypothyroidism, unsp ecified type (CMS/HCC) Start: 09-25-2023 End: 09-25-2023 Patient encounter procedure Stella Vanessaholz Work Phone: [facility] [place] Work Phone: Start: 09-25-2023 End: 09-25-2023 ambulatory Stella J Jessez Work Phone: [facility] Work Phone: Start: 06-05-2023 End: 06-06-2023 ambulatory JEAN [facility] Start: 03-26-2023 End: 03-26-2023 ambulatory Stella Mendezholz Work Phone: [facility] Work Phone: Start: 03-26-2023 End: 03-26-2023 Patient encounter procedure Stella Mendezholz Work Phone: [facility] [place] Work Phone: Start: 09-06-2022 ambulatory Faye Roche Facili ty:[facility] Start: 09-02-2022 End: 09-03-2022 ambulatory PARASITOLOGY TEACHER STELLA AICHHOLZ Facility:[facility] Start: 08-27-2022 End: 08-27-2022 Lab Drop off Dias CLIFFORDAM [facility] Start: 08-27-2022 End: 08-28-2022 ambulatory Dias SALAM Facility:[facility] Start: 08-12-2022 End: 08-13-2022 ambulatory PARASITOLOGY TEACHER STELLA AICHHOLZ Facility:[facility] Start: 08-02-2022 End: 08-03-2022 ambulatory Faye Roche Facility:[facility] Start: 07-15-2022 End: 07-16-2022 ambulatory PARASITOLOGY TEACHER STELLA AICHHOLZ Facility:[facility] Start: 07-11-2022 ambulatory Faye Roche Facility :[facility] Start: 07-04-2022 End: 07-05-[address] LIZY MEADE Facility:[facility] Start: 04-04-2022 End: 04-05-2022 ambulatory PARASITOLOGY TEACHER STELLA AICHHOLZ Facility:[facility] Start: 02-28-2022 End: 03-01-2022 ambulatory PARASITOLOGY TEACHER STELLA AICHHOLZ Facility:[facility] Start: 11-27-2021 End: 11-28-2021 ambulatory PARASITOLOGY TEACHER STELLA AICHHOLZ Facility:[facility] Start: 10-25-2021 End: 10-26-2021 ambulatory PARASITOLOGY TEACHER STELLA AICHHOLZ Facility:[facility] Start: 09-28-2021 End: 09-29-2021 ambulatory PARASITOLOGY TEACHER STELLA AICHHOLZ Facility: Start: 10-23-2017 End: 10-24-2017 Ambulatory DEFAULT PHYSICIAN Facility:[facility] Start: 10-13-2017 End: 10-14-2017 Ambulatory DEFAULT PHYSICIAN Facility:[facility] Procedures Date Procedure Procedure Detail Performing Clinician Start: 10-20-2024 XR LUMBAR SPINE 2 OR 3V Stella Nieto [employer] Work Phone: Start: 10-20-2024 End: 10-20-2024 Radex hip unilateral with pelvis 2-3 views Stella Nieto [employer] Work Phone: Start: 10-18-2024 Hemoglobin glycosyla tish a1c Stella Mendezsachin [employer] Work Phone: Start: 07-13-2024 Mammography Stella calderón [employer] Work Phone: Start: 02-03-2024 MLR HEMOGLOBIN A1C Stella Mendezsachin [employer] Work Phone: Start: 07-11-2023 Mammography Stella calderón [employer] Work Phone: Start: 08-27-2022 Colonoscopy Stella calderón [employer] Work Phone: Plan of Treatment Date Care Activity Detail Author Start: 08-27-2032 Screening for malign ant neoplasm of colon [facility] Start: 07-13-2025 Screening for malign ant neoplasm of breast Mammogram [facility] Start: 07-13-2025 Urine screening for protein Diabetes: Urine Protein Screening [facility] Start: 06-24-2025 Glaucoma screening Diabetes: R etinopathy Screening [facility] Start: 03-28-2025 End: 03-28-2025 Patient encounter procedure 03/28/2025 9:00 AM EST Office Visit [facility] [address] [place] [address] Jean Quick MD [address] [place] [address] [facility] Start: 01-18-2025 Hemoglobin A1c measurement Diabetes: Hemoglobin A1C [facility] Start: 01-10-2025 End: 01-10-2025 Patient encounter procedure 01/10/2025 10:00 AM EDT Office Visit [facility] [address] [place] [address] Stella Nieto, RICHARD [address] [place] [id number] [facility] Start: 01-06-2025 Medicare Annual Well ness (AWV) Medicare Annual Wellness (AWV) [facility] Start: 12-20-2024 Influenza vaccination Influenza Vacc ine (#1) [facility] Start: 12-02-2024 End: 12-02-2024 Patient encounter procedure 12/02/2024 9:40 AM EDT Office Visit [facility] [address] [place] [address] Stella Nieto NP [address] [place] [phone] [facility] Start: 10-18-2024 End: 10-18-2025 XR Hip - right 3 Views XR hip right 2 or 3 views Imaging Routine Right hip pain Expected: 10/18/2024, Expires: 10/18/2025 [facility] Work Phone: Comment on above: Expected: 10/18/2024 , Expires: 10/18/2025 Start: 10-18-2024 End: 10-18-2025 XR Knee - right 3 Views XR knee 3 views right Imaging Routine Right knee pain, unspecified chronicity Expected: 10/18/2024, Expires: 10/18/2025 [facility] Comment on above: Expected: 10/18/2024 , Expires: 10/18/2025 Start: 10-18-2024 End: 10-18-2025 XR Lumbar spine 2 or 3 Views XR lumbar spine 2 or 3 views Imaging Routine Right hip pain Expected: 10/18/2024 (Approximate), Expires: 10/18/2025 [facility] Comment on above: Expected: 10/18/2024 (Approximate), Expires: 10/18/2025 Start: 10-18-2024 End: 10-18-2024 Patient encounter procedure [facility] Comment on above: Primary hypertension (Primary Dx); Gastroesophageal reflux disease without esophagitis; Hypothyroidism, unspecified type ; Type 2 diabetes mellitus without complication, without long-term current use of insulin (HCC); Mixed hyperlipidemia Start: 10-07-2024 Hemoglobin A1c measurement Diabetes: Hemoglobin A1C [facility] Start: 08-17-2024 End: 08-17-2024 Patient encounter procedure [facility] Comment on above: Primary hypertension (CMS/HCC) (Primary Dx); Weight loss, unintentional Start: 08-13-2024 Urine screening for protein Diabetes: Urine Protein Screening [facility] Start: 07-22-2024 End: 07-22-2024 Patient encounter procedure [facility] Comment on above: Primary hypertension (CMS/HCC) (Primary Dx); Type 2 diabetes mellitus with other specified complication; Mixed hyperlipidemia (CMS/HCC); Weight loss, unintentional; Pain in the coccyx Start: 07-10-2024 Screening for malign ant neoplasm of breast Mammogram [facility] Start: 07-07-2024 End: 07-07-2024 Patient encounter procedure 07/07/2024 9:00 AM EDT Office Visit [facility] [address] [place] [address] Stella Nieto NP [address] [place] [address] [facility] Start: 05-05-2024 Hemoglobin A1c measurement Diabetes: Hemoglobin A1C [facility] Start: 03-29-2024 End: 03-29-2025 25-hydroxyvitamin D3 [Mass/volume] in Serum or Plasma Vitamin D 25 hydroxy Total Lab Routine Vitamin D deficiency Expected: 03/29/2024 (Approximate), Expires: 03/29/2025 [facility] Work Phone: Comment on above: Expected: 03/29/2024 [...] 02-19-2024 Influenza vaccination Influenza Vacc ine (#1) [facility] Comment on above: Postponed from 12/20 (Patient Does Not Have Time) Start: 01-07-2024 End: 01-06-2025 Hemoglobin A1c/Hemoglobin.total in Blood Hemoglobin A1c Lab Routine Type 2 diabetes mellitus without complication, without long-term current use of insulin ([facility]) Expected: 01/07/2024 (Approximate), Expires: 01/06/2025 [facility] Work Phone: Comment on above: Expected: 01/07/2024 (Approximate), Expires: 01/06/2025 Start: 01-07-2024 Medicare Annual Well ness (AWV) Medicare Annual Wellness (AWV) [facility] Start: 01-07-2024 End: 01-07-2024 Patient encounter procedure [facility] Comment on above: Arrived Start: 12-21-2023 Influenza vaccination Influenza Vacc ine (#1) [facility] Start: 11-13-2023 Hemoglobin A1c measurement Diabetes: Hemoglobin A1C [facility] Start: 07-23-2023 Hemoglobin A1c measurement Diabetes: Hemoglobin A1C [facility] Start: 1965 Glaucoma screening Diabetes: R etinopathy Screening [facility] Start: 1955 Screening for malign ant neoplasm of colon [facility] Immunizations Immunization Date Immunization Notes Care Provider Fa caridadty 08-17-2024 zoster vaccine recombinant Stella Aichholz [employer] Work Phone: [facility] 05-07-2024 influenza, high dose seasonal, preservative-free Stella Aichholz [employer] Work Phone: [facility] 05-07-2024 tetanus toxoid, redu chloé diphtheria toxoid, and acellular pertussis vaccine, adsorbed Stella Aichholz [employer] Work Phone: [facility] 05-07-2024 zoster vaccine recombinant Stella Aichholz [employer] Work Phone: [facility] 05-07-2024 influenza virus vaccine, unspecified formulation Stella Aichholz [employer] Work Phone: [facility] 01-14-2023 Influenza, Seasonal, Quadrivalent, Adjuvanted Stella Aichholz [employer] Work Phone: [facility] 01-14-2023 SARS-COV-2 (COVID-19 ) vaccine, mRNA, spike protein, LNP, PF, digna-sucrose, 30 mcg/0.3 mL Stella Aichholz [employer] Work Phone: [facility] 01-14-2023 influenza virus vaccine, unspecified formulation Stella Aichholz [employer] Work Phone: [facility] 04-23-[address] 12 Years [address] Older Stella Aichholz [employer] Work Phone: [facility] 04-23-2022 SARS-CoV-2 (COVID-19 ) [id number] Dias SALAM [facility] 07-30-2021 Pfizer Myles Cap SARS-CoV-2 Vaccination Stella Aichholz [employer] Work Phone: [facility] 07-30-2021 SARS-CoV-2 mRNA (tpsbeamzvzk-dtso-ldkag se) vaccine Dias SALAM [facility] 07-30-2021 SARS-CoV-2, Unspecified Stella Aichholz [employer] Work Phone: [facility] 02-02-2021 influenza virus vaccine, unspecified formulation Dias SALAM [facility] 02-02-2021 Influenza, High-dose Seasonal, Quadrivalent, Preservative Free Stella Aichholz [employer] Work Phone: [facility] 02-02-2021 pneumococcal conjuga te vaccine, 13 valent Dias SALAM [facility] 01-15-2021 SARS-CoV-2 (COVID-19 ) mRNA BNT-162b2 vax Dias SALAM [facility] 07-11-2020 SARS-CoV-2 (COVID-19 ) mRNA BNT-162b2 vax Dias SALAM [facility] 06-19-2020 SARS-CoV-2 (COVID-19 ) mRNA BNT-162b2 vax Dias SALAM [facility] 01-22-2020 influenza virus vaccine, unspecified formulation Dias SALAM [facility] 01-22-2020 Influenza, High-dose Seasonal, Quadrivalent, Preservative Free Stella Aichholz [employer] Work Phone: [facility] 04-26-2019 influenza virus vaccine, unspecified formulation Dias SALAM [facility] 04-26-2019 Seasonal, quadrivale nt, recombinant, injectable influenza vaccine, preservative free Stella Aichholz [employer] Work Phone: [facility] 02-06-2018 influenza virus vaccine, unspecified formulation Dias SALAM [facility] 02-06-2018 influenza, injectabl e, quadrivalent, preservative free Setlla Aichholz [employer] Work Phone: [facility] 01-30-2017 influenza virus vaccine, unspecified formulation Dias SALAM [facility] 01-30-2017 influenza, seasonal, injectable, preservative free Stella Aichholz [employer] Work Phone: [facility] 01-30-2016 zoster vaccine, live Dias S ALAM [facility] 01-15-2016 influenza virus vaccine, unspecified formulation Dias SALAM [facility] 01-15-2016 influenza, seasonal, injectable, preservative free Stella Aichholz [employer] Work Phone: [facility] 04-22-2012 influenza virus vaccine, whole virus Stella Aichholz [employer] Work Phone: [facility] 04-22-2012 influenza, injectabl e, quadrivalent, contains preservative Stella Aichholz [employer] Work Phone: [facility] 04-22-2012 influenza, whole Dias SALAM [facility] 02-06-2009 influenza virus vaccine, whole virus Stella Aichholz [employer] Work Phone: [facility] 02-06-2009 influenza, injectabl e, quadrivalent, contains preservative Stella Aichholz [employer] Work Phone: [facility] 02-06-2009 influenza, whole Dias SALAM [facility] Payers Date Payer Category Payer Medicare (Managed Care) [employer] [id number] 2024 Medicare [id number] 2023 Self-pay [id number] 2019 Medicare [id number] 1959 Medicaid [id number] 1960 Medicare [id number] 1954 Unknown [id number] 2.16.840.1.013724.3.579.2. 593 1954 Unknown [id number] 2.16.840.1.008362.3.579.2. 593 1954 Unknown [id number] 2.16.840.1.142479.3.579.2. 593 1954 Unknown [id number] 2.16.840.1.797363.3.579.2. 593 1954 Unknown [id number] 2.16.840.1.446145.3.579.2. 593 1954 Unknown [id number] 2.16.840.1.186784.3.579.2. 593 1954 Unknown [id number] 2.16.840.1.597442.3.579.2. 593 1954 Unknown [id number] 2.16.840.1.558550.3.579.2. 593 1954 Unknown [id number] 2.16.840.1.428015.3.579.2. 593 1954 Unknown [id number] 2.16.840.1.007006.3.579.2. 727 1954 Unknown [id number] 2.16.840.1.300565.3.579.2. 727 1954 Unknown [id number] 2.16.840.1.478070.3.579.2. 727 1954 Unknown [id number] 2.16.840.1.980535.3.579.2. 727 1954 Unknown [id number] 2.16.840.1.956485.3.579.2. 727 1954 Unknown [id number] 2.16.840.1.376179.3.579.2. 1286 1954 Unknown [id number] 2.16.840.1.641479.3.579.2. 1259 1954 Unknown [id number] 2.16.840.1.369869.3.579.2. 1259 1954 Unknown [id number] 2.16.840.1.745460.3.579.2. 1259 1954 Unknown [id number] 2.16.840.1.250624.3.579.2. 1259 1954 Unknown [id number] 2.16.840.1.476354.3.579.2. 1259 1954 Unknown [id number] 2.16.840.1.698294.3.579.2. 1259 Unknown Unknown [id number] 2.16.840.1.373411.3.579.2. 531 Unknown [id number] 2.16.840.1.167799.3.579.2. 531 Social History Date Type Detail Facility Start: 08-02-2022 End: 11-25-2022 Tobacco smoking status Never smoked tobacco (finding) [facility] Tobacco smoking status Never [facility] Start: 03-26-2023 End: 08-10-2024 Sex Assigned At Female [facility] Start: 1955 Sex Assigned At Female [facility] Start: 11-25-2022 Tobacco use and exposure Smokeless tobacco non-user [facility] Start: 01-07-2024 End: 10-18-2024 Alcoholic beverage intake Ex-drinker (finding) [facility] [...] to any clubs or organizations such as buddhism groups, unions, fraternal or athletic groups, or school groups? Yes [facility] Do you feel stress - tense, restless, nervous, or anxious, or unable to sleep at night because your mind is troubled all the time - these days [OSQ] Only a little [facility] Medical Equipment Procedure Code Equipment Code Equipment Origin al Text Equipment Identifier Dates Once daily [id number] Start: 06-26-2023 Clinical Notes 01-07-2024 to 10-18-2024 RICHARD LOONEY - 10/18/2024 9:00 AM Rio Nieto NP - 10/18/2024 9:00 AM Rio Nieto, RICHARD - 10/18/2024 6:13 AM EDDomo Nieto, RICHARD - 10/18/2024 6:13 AM EDTPatient Instructions Note Date & Type Note Facility 10-18-2024 History of Present illness Narrative Right groin- pain, unsure if its a muscle or tendon Right inner knee-pain Right ear-itchy, wet after taking hearing aid out. Images from the original note were not included. Kee Adorno is a 69 y.o. female presents with chief complaint of Diabetes HPI: Pain right groin/inner knee: achy pain, constant, intensity changes, notices more problem climbing in vehicles that are too tall for her to get into No low back pain, no NT in the leg. No hip pain. Diabetes She presents for her follow-up diabetic visit. She has type 2 diabetes mellitus. Her disease course has been stable. There are no hypoglycemic associated symptoms. Pertinent negatives for hypoglycemia include no dizziness, headaches, nervousness/anxiousness, seizures or tremors. Pertinent negatives for diabetes include no chest pain, no polydipsia, no polyphagia and no polyuria. There are no hypoglycemic complications. Symptoms are improving. Pertinent negatives for diabetic complications include no heart disease, nephropathy or peripheral neuropathy. Risk factors for coronary artery disease include diabetes mellitus, dyslipidemia and sedentary lifestyle. Current diabetic treatment includes oral agent (monotherapy) (GLP 1). She is following a generally healthy diet. Her overall blood glucose range is 110-130 mg/dl. An LEXII inhibitor/angiotensin II receptor antonino is not being taken. She does not see a knockdown man.Eye exam is current. SUBJECTIVE: MEDICATIONS: Current Outpatient Medications Medication Instructions alendronate (FOSAMAX) 70 mg, Oral, Every 7 days, Take in the morning with a full glass of water, on an empty stomach, and do not take anything else by mouth or lie down for the next 30 min. aspirin 81 mg, Daily atorvastatin (LIPITOR) 80 [...] before breakfast LORazepam (Ativan) 0.5 MG tablet May take 1 pill night before dental procedure, and then repeat 2 hours prior to dental procedure, will need a truss driver helper metFORMIN XR (GLUCOPHAGE-XR) 750 mg, Oral, 2 [...] History of colon polyps 11/19/2022 Hypercalcemia Hypercholesterolemia Hyperlipidemia Hyperparathyroidism (HCC) Hypertension Hypomagnesemia Hypothyroidism Nausea and/or vomiting Osteopenia Osteoporosis Restless legs Right thigh pain Seborrhea Shingles Thyroid nodule Trapezius strain, left, subsequent encounter Type 2 diabetes mellitus (HCC) Vitamin D deficiency White matter abnormality on [...] in her mother. OBJECTIVE: Visit Vitals BP 128/68 (BP Location: Left arm, Patient Position: Sitting, BP Cuff Size: Adult long) Pulse 80 Temp 98.1 F (Temporal) Resp 18 Wt 122 lb 6.4 oz SpO2 99% BMI 28.45 kg/m Smoking Status Never BSA 1.47 m Physical Exam Vitals and nursing note reviewed. Constitutional: General: She is not in acute distress. Appearance: Normal appearance. HENT: Head: Normocephalic and atraumatic. Right Ear: Tympanic membrane and external ear normal. Left Ear: External ear normal. Ears: Comments: Small scabbed area canal, pt has been itching it with match stick Nose: Nose normal. Mouth/Throat: Mouth: Mucous membranes [...] edema. Left lower leg: No edema. Comments: Pain inner thigh with abduction of right hip No pain w internal rotation Full flexion/extension of the right knee DTR's 2+ bilat patellar/achilles, MMT 5/5 bilat LE Near full flexion lumbar, ext less than 10 -SLR X2 Lymphadenopathy: Cervical: No cervical adenopathy. Skin: General: Skin is warm and dry. Capillary Refill: Capillary refill takes 2 to 3 seconds. Findings: No rash. Neurological: General: No focal deficit present. Mental Status: She is alert and oriented to person, place, and time. Psychiatric: Mood and Affect: Mood normal. Behavior: Behavior normal. Thought Content: Thought content normal. Judgment: Judgment normal. ASSESSMENT AND PLAN: Follow up in about 6 weeks (around 11/29/2024) for Recheck. Problem List Items Addressed This Visit Type 2 diabetes mellitus (HCC) - Primary Check blood sugars daily, notify if <70 [...] diet low in carbohydrates, and simple sugars. Current meds: asa, statin, metformin, pioglitazone, ozempic A1c: 5.9% 10/18/24, 6% 07/07/2024 Relevant Orders POCT glycosylated hemoglobin (Hb A1C) docked device (Completed) Hypertension Please check blood pressure daily and record DASH diet Limit caffeine Take medication as directed Contact office if chest pain, pressure, dizziness, shortness of breath, swelling legs Recommend slow position changes Current meds: metoprolol 12.5mg daily Check BP 2-3 times per week: 110/70's Hypothyroidism On levothyroxine Check labs yearly , prn dose changes, or prn sxs change Environmental allergies Relevant Medications cetirizine (ZyrTEC) 10 MG tablet fluticasone (Flonase) 50 MCG/ACT nasal spray GERD (gastroesophageal reflux disease) Recommendations: freq small meals, nothing to eat or drink at least 2 hours prior to bed, limit caffeine, alcohol, as well as spicy foods Meds to limit or avoid if possible: NSAIDS Elevate HOB if possible Current med: omeprazole Relevant Medications omeprazole (PriLOSEC) [address] capsule Hyperlipidemia On statin therapy Check labs yearly and prn dose changes Relevant Medications atorvastatin (Lipitor) 80 MG tablet Right hip pain Relevant Orders XR hip right 2 or 3 views XR lumbar spine 2 or 3 views Right knee pain Relevant Orders XR knee 3 views right Other Visit Diagnoses Other specified anxiety disorders Relevant Medications DULoxetine (Cymbalta) [address] capsule Mild episode of recurrent major depressive disorder Relevant Medications DULoxetine (Cymbalta) [address] capsule Type 2 diabetes mellitus without complications (HCC) Relevant Medications metFORMIN XR (Glucophage-XR) 750 MG 24 hr tablet Other Relevant Orders POCT glycosylated hemoglobin (Hb A1C) docked device (Completed) Associated Problem(s): Hyperlipidemia On statin therapy Check labs yearly and prn dose changes Associated Problem(s): Type 2 diabetes mellitus (HCC) Check blood sugars daily, notify if <70 [...] diet low in carbohydrates, and simple sugars. Current meds: asa, statin, metformin, pioglitazone, ozempic A1c: 5.9% 10/18/24, 6% 07/07/2024 Associated Problem(s): Hypothyroidism On levothyroxine Check labs yearly , prn dose changes, or prn sxs change Associated Problem(s): GERD (gastroesophageal reflux disease) Recommendations: freq small meals, nothing to eat or drink at least 2 hours prior to bed, limit caffeine, alcohol, as well as spicy foods Meds to limit or avoid if possible: NSAIDS Elevate HOB if possible Current med: omeprazole Associated Problem(s): Hypertension Please check blood pressure daily and record DASH diet Limit caffeine Take medication as directed Contact office if chest pain, pressure, dizziness, shortness of breath, swelling legs Recommend slow position changes Current meds: metoprolol 12.5mg daily Check BP 2-3 times per week: 110/70's documented in this encounter [facility] 10-18-2024 Instructions Stella Nieto NP - 10/18/2024 9:00 AM EDT Check xrays No med dose changes documented in this encounter [facility] 08-17-2024 History of Present illness Narrative Associated [...] from the original note were not included. Kee Adorno is a 69 y.o. female presents with chief complaint of No chief complaint on file. HPI: Here for recheck of blood pressure: last appt we stopped her lisinopril, but started on b antonino d/t sl elevated HR She is here [...] times per week documented in this encounter [facility] 08-17-2024 Instructions Stella Nieto NP - 08/17/2024 9:00 AM EDT Metamucil daily documented in this encounter [facility] 07-22-2024 History of Present illness Narrative 119/77 112 Images from the original note were not included. Kee Adorno is a 69 y.o. female presents [...] weeks for recheck documented in this encounter [facility] 07-22-2024 Instructions Stella Nieto NP - 07/22/2024 1:40 PM EDT Bone density: Call centralized scheduling for schedule bone density test: [phone] BP/HR: stop lisinopril , we will start Metoprolol succinate XL: 12.5mg (1/2 of a 25mg tablet) ONCE a day. Check blood pressure documented in this encounter [facility] 03-29-2024 History of Present illness Narrative Kee Adorno is a 68 y.o. female Jean [...] HPI: 07/06 Follow up patient sent from [facility] in [place] Stella Ortiz CNP for hypercalcemia. The last time [...] hours prior to procedure. Must have a truss driver helper for this metFORMIN XR (GLUCOPHAGE-XR) 750 mg, [...] year (around 03/29/2025). documented in this encounter [facility] 01-07-2024 History of Present illness Narrative Associated [...] from the original note were not included. Kee Adorno is a 68 y.o. female presents [...] the time. An LEXII inhibitor/angiotensin II receptor antonino is being taken. She does not see a knockdown man.Eye exam is current. SUBJECTIVE: MEDICATIONS: Current Outpatient [...] hours prior to procedure. Must have a truss driver helper for this magnesium oxide (MAG-OX) 400 mg, [...] yearly and prn documented in this encounter [facility] Healthcare Evaluation + Plan note No data available for this section [facility] Evaluation note No assessment inform ation available [facility] Work Phone: Evaluation note Diagnosis Anxiety in acute stress reaction (CMS/HCC)- Primary Dental disease Unspecified disorder of the teeth and supporting structures documented in this encounter [facility] HealthcareEvaluation note* Diagnosis Type 2 diabetes [...] complication, without long-term current use of insulin ([facility]) Dental disease Unspecified disorder of the teeth and supporting structures Anxiety in acute stress reaction ([facility]) Encounter for subsequent annual wellness visit (AWV) in Medicare patient- Primary Type 2 diabetes mellitus without complication, without long-term current use of insulin ([facility]) Hypothyroidism, unspecified type ([facility]) Mild episode of recurrent major depressive disorder (HCC) ([facility]) Primary hypertension ([facility]) Unspecified essential hypertension Obesity (BMI 30-39.9) Type 2 diabetes mellitus without complications ([facility] Mixed hyperlipidemia ([facility]) Mixed hyperlipidemia documented in this encounter [facility] HealthcareEvaluation note* Diagnosis Type 2 diabetes mellitus without complication, without long-term current use of insulin ([facility])- Primary Obesity (BMI 30-39.9) Hyperparathyroidism ([facility]) Hyperparathyroidism, unspecified Primary hypertension ([facility]) Unspecified essential hypertension Gastroesophageal reflux disease without esophagitis Esophageal reflux Depression with anxiety Dysthymic disorder Primary hypertension ([facility])- Primary Unspecified essential hypertension Vitamin D deficiency Type 2 diabetes mellitus without complication, without long-term current use of insulin ([facility]) Hypothyroidism, unspecified type ([facility]) Mixed hyperlipidemia ([facility]) Mixed hyperlipidemia Encounter for screening mammogram for malignant neoplasm of breast Hyperparathyroidism ([facility]) Hyperparathyroidism, unspecified Hyperparathyroidism, unspecified (E21.3) Hyperparathyroidism, unspecified Lateral epicondylitis of right elbow- Primary Obesity (BMI 30-39.9) Dental disease Unspecified disorder of the teeth and supporting structures Anxiety in acute stress reaction ([facility]) Type 2 diabetes mellitus without complications ([facility])- Primary Mixed hyperlipidemia ([facility]) Mixed hyperlipidemia Other specified disorders of bone density and structure, unspecified site Environmental allergies Other allergy, other than to medicinal agents Other specified anxiety disorders Mild episode of recurrent major depressive disorder (HCC) ([facility]) Hypothyroidism, unspecified type ([facility]) Essential (primary) hypertension ([facility]) Unspecified essential hypertension Gastroesophageal reflux disease without esophagitis Esophageal reflux Hypomagnesemia Disorders of magnesium metabolism Primary hypertension ([facility]) Unspecified essential hypertension Type 2 diabetes mellitus without complication, without long-term current use of insulin ([facility]) Dental disease Unspecified disorder of the teeth and supporting structures Anxiety in acute stress reaction ([facility]) Encounter for subsequent annual wellness visit (AWV) in Medicare patient- Primary Type 2 diabetes mellitus without complication, without long-term current use of insulin ([facility]) Hypothyroidism, unspecified type ([facility]) Mild episode of recurrent major depressive disorder (HCC) ([facility]) Primary hypertension ([facility]) Unspecified essential hypertension Obesity (BMI 30-39.9) Hypothyroidism, unspecified type ([facility]) documented in this encounter [facility] HealthcareEvaluation note* Diagnosis Type 2 diabetes mellitus without complication, without long-term current use of insulin ([facility])- Primary Obesity (BMI 30-39.9) Hyperparathyroidism ([facility]) Hyperparathyroidism, unspecified Primary hypertension ([facility]) Unspecified essential hypertension Gastroesophageal reflux disease without esophagitis Esophageal reflux Depression with anxiety Dysthymic disorder Primary hypertension ([facility])- Primary Unspecified essential hypertension Vitamin D deficiency Type 2 diabetes mellitus without complication, without long-term current use of insulin ([facility]) Hypothyroidism, unspecified type ([facility]) Mixed hyperlipidemia ([facility]) Mixed hyperlipidemia Encounter for screening mammogram for malignant neoplasm of breast Hyperparathyroidism ([facility]) Hyperparathyroidism, unspecified Hyperparathyroidism, unspecified (E21.3) Hyperparathyroidism, unspecified Lateral epicondylitis of right elbow- Primary Obesity (BMI 30-39.9) Dental disease Unspecified disorder of the teeth and supporting structures Anxiety in acute stress reaction ([facility]) Type 2 diabetes mellitus without complications ([facility])- Primary Mixed hyperlipidemia ([facility]) Mixed hyperlipidemia Other specified disorders of bone density and structure, unspecified site Environmental allergies Other allergy, other than to medicinal agents Other specified anxiety disorders Mild episode of recurrent major depressive disorder (HCC) ([facility]/H[facility]) Hypothyroidism, unspecified type ([facility]/H[facility]) Essential (primary) hypertension ([facility]) Unspecified essential hypertension Gastroesophageal reflux disease without esophagitis Esophageal reflux Hypomagnesemia Disorders of magnesium metabolism Primary hypertension ([facility]) Unspecified essential hypertension Type 2 diabetes mellitus without complication, without long-term current use of insulin ([facility]) Dental disease Unspecified disorder of the teeth and supporting structures Anxiety in acute stress reaction ([facility]) Encounter for subsequent annual wellness visit (AWV) in Medicare patient- Primary Type 2 diabetes mellitus without complication, without long-term current use of insulin ([facility]) Hypothyroidism, unspecified type ([facility]/HCC) Mild episode of recurrent major depressive disorder [...] 30-39.9) Hyperparathyroidism (CMS/HCC) Hyperparathyroidism, unspecified Primary hypertension ([facility]/HCC) Unspecified essential hypertension Gastroesophageal reflux disease without esophagitis Esophageal reflux Depression with anxiety Dysthymic disorder Primary hypertension (CMS/HCC)- Primary Unspecified essential hypertension Vitamin D deficiency Type 2 diabetes mellitus without complication, without long-term current use of insulin ([facility]) Hypothyroidism, unspecified type (CMS/HCC) Mixed hyperlipidemia ([facility]) Mixed hyperlipidemia Encounter for screening mammogram for malignant neoplasm of breast Hyperparathyroidism ([facility]) Hyperparathyroidism, unspecified Hyperparathyroidism, unspecified (E21.3) Hyperparathyroidism, unspecified [...] complication, without long-term current use of insulin ([facility]) Dental disease Unspecified disorder of the teeth and supporting structures Anxiety in acute stress reaction ([facility]) Encounter for subsequent annual wellness visit (AWV) in Medicare patient- Primary Type 2 diabetes mellitus without complication, without long-term current use of insulin ([facility]) Hypothyroidism, unspecified type (CMS/HCC) Mild episode of recurrent major depressive disorder (HCC) ([facility]) Primary hypertension ([facility]) Unspecified essential hypertension Obesity (BMI 30-39.9) Type 2 diabetes mellitus without complications ([facility]/HCC) documented in this encounter [facility] HealthcareEvaluation note* Diagnosis Type 2 diabetes mellitus without complication, without long-term current use of insulin ([facility])- Primary Obesity (BMI 30-39.9) Hyperparathyroidism ([facility]) Hyperparathyroidism, unspecified Primary hypertension ([facility]) Unspecified essential hypertension Gastroesophageal reflux disease without esophagitis Esophageal reflux Depression with anxiety Dysthymic disorder Primary hypertension ([facility])- Primary Unspecified essential hypertension Vitamin D deficiency Type 2 diabetes mellitus without complication, without long-term current use of insulin ([facility]) Hypothyroidism, unspecified type (CMS/HCC) Mixed hyperlipidemia ([facility]) Mixed hyperlipidemia Encounter for screening mammogram for malignant neoplasm of breast Hyperparathyroidism ([facility]) Hyperparathyroidism, unspecified Hyperparathyroidism, unspecified (E21.3) Hyperparathyroidism, unspecified Lateral epicondylitis of right elbow- Primary Obesity (BMI 30-39.9) Dental disease Unspecified disorder of the teeth and supporting structures Anxiety in acute stress reaction ([facility]) Type 2 diabetes mellitus without complications ([facility])- Primary Mixed hyperlipidemia ([facility]) Mixed hyperlipidemia Other specified disorders of bone density and structure, unspecified site Environmental allergies Other allergy, other than to medicinal agents Other specified anxiety disorders Mild episode of recurrent major depressive disorder (HCC) (CMS/HCC) Hypothyroidism, unspecified type ([facility]) Essential (primary) hypertension ([facility]/HCC) Unspecified essential hypertension Gastroesophageal reflux disease without esophagitis Esophageal reflux Hypomagnesemia Disorders of magnesium metabolism Primary hypertension ([facility]) Unspecified essential hypertension Type 2 diabetes mellitus without complication, without long-term current use of insulin ([facility]) Dental disease Unspecified disorder of the teeth and supporting structures Anxiety in acute stress reaction ([facility]) Encounter for subsequent annual wellness visit (AWV) in Medicare patient- Primary Type 2 diabetes mellitus without complication, without long-term current use of insulin ([facility]) Hypothyroidism, unspecified type (CMS/HCC) Mild episode of recurrent major depressive disorder (HCC) (CMS/HCC) Primary hypertension ([facility]) Unspecified essential hypertension Obesity (BMI 30-39.9) Type 2 diabetes mellitus without complications (CMS/HCC) Environmental allergies Other allergy, other than to medicinal agents documented in this encounter [facility] HealthcareEvaluation note* Diagnosis Type 2 diabetes mellitus without complication, without long-term current use of insulin ([facility])- Primary Obesity (BMI 30-39.9) Hyperparathyroidism (CMS/HCC) Hyperparathyroidism, unspecified Primary hypertension ([facility]/HCC) Unspecified essential hypertension Gastroesophageal reflux disease without esophagitis Esophageal reflux Depression with anxiety Dysthymic disorder Primary hypertension ([facility])- Primary Unspecified essential hypertension Vitamin D deficiency Type 2 diabetes mellitus without complication, without long-term current use of insulin ([facility]) Hypothyroidism, unspecified type ([facility]) Mixed hyperlipidemia ([facility]) Mixed hyperlipidemia Encounter for screening mammogram for malignant neoplasm of breast Hyperparathyroidism ([facility]) Hyperparathyroidism, unspecified Hyperparathyroidism, unspecified (E21.3) Hyperparathyroidism, unspecified Lateral epicondylitis of right elbow- Primary Obesity (BMI 30-39.9) Dental disease Unspecified disorder of the teeth and supporting structures Anxiety in acute stress reaction (CMS/[facility]) Type 2 diabetes mellitus without complications ([facility]/HCC)- Primary Mixed hyperlipidemia ([facility]) Mixed hyperlipidemia Other specified disorders of bone density and structure, unspecified site Environmental allergies Other allergy, other than to medicinal agents Other specified anxiety disorders Mild episode of recurrent major depressive disorder (HCC) (CMS/HCC) Hypothyroidism, unspecified type (CMS/HCC) Essential (primary) hypertension ([facility]/HCC) Unspecified essential hypertension Gastroesophageal reflux disease without esophagitis Esophageal reflux Hypomagnesemia Disorders of magnesium metabolism Primary hypertension ([facility]/HCC) Unspecified essential hypertension Type 2 diabetes mellitus without complication, without long-term current use of insulin ([facility]) Dental disease Unspecified disorder of the teeth and supporting structures Anxiety in acute stress reaction ([facility]) Encounter for subsequent annual wellness visit (AWV) in Medicare patient- Primary Type 2 diabetes mellitus without complication, without long-term current use of insulin ([facility]) Hypothyroidism, unspecified type ([facility]) Mild episode of recurrent major depressive disorder (HCC) (CMS/HCC) Primary hypertension (CMS/HCC) Unspecified essential hypertension Obesity (BMI 30-39.9) Type 2 diabetes mellitus without complications (CMS/HCC) Other specified anxiety disorders Mild episode of recurrent major depressive disorder (HCC) (CMS/HCC) documented in this encounter [facility] HealthcareEvaluation note* Diagnosis Type 2 diabetes [...] complication, without long-term current use of insulin ([facility]) Hypothyroidism, unspecified type (CMS/HCC) Mixed hyperlipidemia (CMS/[facility]) Mixed hyperlipidemia Encounter for screening mammogram for malignant neoplasm of breast Hyperparathyroidism ([facility]) Hyperparathyroidism, unspecified Hyperparathyroidism, unspecified (E21.3) Hyperparathyroidism, unspecified Lateral epicondylitis of right elbow- Primary Obesity (BMI 30-39.9) Dental disease Unspecified disorder of the teeth and supporting structures Anxiety in acute stress reaction (CMS/HCC) Type 2 diabetes mellitus without complications (CMS/HCC)- Primary Mixed hyperlipidemia ([facility]) Mixed hyperlipidemia Other specified disorders of bone density and structure, unspecified site Environmental allergies Other allergy, other than to medicinal agents Other specified anxiety disorders Mild episode of recurrent major depressive disorder (HCC) (CMS/HCC) Hypothyroidism, unspecified type (CMS/HCC) Essential (primary) hypertension ([facility]/HCC) Unspecified essential hypertension Gastroesophageal reflux disease without esophagitis Esophageal reflux Hypomagnesemia Disorders of magnesium metabolism Primary hypertension (CMS/HCC) Unspecified essential hypertension Type 2 diabetes mellitus without complication, without long-term current use of insulin (CMS/HCC) Dental disease Unspecified disorder of the teeth and supporting structures Anxiety in acute stress reaction ([facility]) Encounter for subsequent annual wellness visit (AWV) in Medicare patient- Primary Type 2 diabetes mellitus without complication, without long-term current use of insulin ([facility]) Hypothyroidism, unspecified type (CMS/HCC) Mild episode of recurrent major depressive disorder (HCC) (CMS/HCC) Primary hypertension ([facility]/HCC) Unspecified essential hypertension Obesity (BMI 30-39.9) Environmental allergies- Primary Other allergy, other than to medicinal agents documented in this encounter [facility] HealthcareEvaluation note* Diagnosis Type 2 diabetes [...] mammogram for malignant neoplasm of breast Hyperparathyroidism ([facility]) Hyperparathyroidism, unspecified Hyperparathyroidism, unspecified (E21.3) Hyperparathyroidism, unspecified Lateral epicondylitis of right elbow- Primary Obesity (BMI 30-39.9) Dental disease Unspecified disorder of the teeth and supporting structures Anxiety in acute stress reaction ([facility]) Type 2 diabetes mellitus without complications- Primary Mixed hyperlipidemia ([facility]) Mixed hyperlipidemia Other specified disorders of bone density and structure, unspecified site Environmental allergies Other allergy, other than to medicinal agents Other specified anxiety disorders Mild episode of recurrent major depressive disorder (HCC) (CMS/HCC) Hypothyroidism, unspecified type (CMS/HCC) Essential (primary) hypertension ([facility]) Unspecified essential hypertension Gastroesophageal reflux disease without esophagitis Esophageal reflux Hypomagnesemia Disorders of magnesium metabolism Primary hypertension ([facility]/HCC) Unspecified essential hypertension Type 2 diabetes mellitus without complication, without long-term current use of insulin Dental disease Unspecified disorder of the teeth and supporting structures Anxiety in acute stress reaction ([facility]) Encounter for subsequent annual wellness visit (AWV) in Medicare patient- Primary Type 2 diabetes mellitus without complication, without long-term current use of insulin Hypothyroidism, unspecified type (CMS/HCC) Mild episode of recurrent major depressive disorder (HCC) (CMS/[facility]) Primary hypertension ([facility]) Unspecified essential hypertension Obesity (BMI 30-39.9) Type 2 diabetes mellitus without complication, without long-term current use of insulin- Primary Primary hypertension (CMS/HCC) Unspecified essential hypertension Gastroesophageal reflux disease without esophagitis Esophageal reflux Age-related osteoporosis without current pathological fracture (CMS/HCC) Hyperparathyroidism (CMS/HCC) Hyperparathyroidism, unspecified Hypothyroidism, unspecified type (CMS/HCC) Obesity (BMI 30-39.9) Vitamin D deficiency Depression with anxiety Dysthymic disorder Mixed hyperlipidemia (CMS/HCC) Mixed hyperlipidemia Encounter for screening mammogram for malignant neoplasm of breast Other specified disorders of bone density and structure, unspecified site Environmental allergies Other allergy, other than to medicinal agents Other specified anxiety disorders Mild episode of recurrent major depressive disorder (HCC) ([facility]) Type 2 diabetes mellitus without complications Pain in the coccyx Other disorder of coccyx Weight loss, unintentional Loss of weight Other specified disorders of bone density and structure, unspecified site documented in this encounter [facility] HealthcareEvaluation note* Diagnosis Type 2 diabetes mellitus without complication, without long-term current use of insulin- Primary Obesity (BMI 30-39.9) Hyperparathyroidism (CMS/HCC) Hyperparathyroidism, unspecified Primary hypertension ([facility]/HCC) Unspecified essential hypertension Gastroesophageal reflux disease without esophagitis Esophageal reflux Depression with anxiety Dysthymic disorder Primary hypertension ([facility])- Primary Unspecified essential hypertension Vitamin D deficiency Type 2 diabetes mellitus without complication, without long-term current use of insulin Hypothyroidism, unspecified type (CMS/HCC) Mixed hyperlipidemia ([facility]) Mixed hyperlipidemia Encounter for screening mammogram for malignant neoplasm of breast Hyperparathyroidism ([facility]) Hyperparathyroidism, unspecified Hyperparathyroidism, unspecified (E21.3) Hyperparathyroidism, unspecified Lateral epicondylitis of right elbow- Primary Obesity (BMI 30-39.9) Dental disease Unspecified disorder of the teeth and supporting structures Anxiety in acute stress reaction ([facility]) Type 2 diabetes mellitus without complications- Primary Mixed hyperlipidemia ([facility]) Mixed hyperlipidemia Other specified disorders of bone density and structure, unspecified site Environmental allergies Other allergy, other than to medicinal agents Other specified anxiety disorders Mild episode of recurrent major depressive disorder (HCC) (CMS/HCC) Hypothyroidism, unspecified type (CMS/HCC) Essential (primary) hypertension ([facility]) Unspecified essential hypertension Gastroesophageal reflux disease without esophagitis Esophageal reflux Hypomagnesemia Disorders of magnesium metabolism Primary hypertension (CMS/HCC) Unspecified essential hypertension Type 2 diabetes mellitus without complication, without long-term current use of insulin Dental disease Unspecified disorder of the teeth and supporting structures Anxiety in acute stress reaction ([facility]) Encounter for subsequent annual wellness visit (AWV) [...] Depression with anxiety Dysthymic disorder Mixed hyperlipidemia (CMS/HCC) Mixed hyperlipidemia Encounter for screening mammogram for malignant neoplasm of breast Other specified disorders of bone density and structure, unspecified site Environmental allergies Other allergy, other than to medicinal agents Other specified anxiety disorders Mild episode of recurrent major depressive disorder (HCC) ([facility]) Type 2 diabetes mellitus without complications Pain in the coccyx Other disorder of coccyx Weight loss, unintentional Loss of weight Primary hypertension ([facility])- Primary Unspecified essential hypertension Type 2 diabetes mellitus with other specified complication Mixed hyperlipidemia ([facility]) Mixed hyperlipidemia Weight loss, unintentional Loss of weight Pain in the coccyx Other disorder of coccyx documented in this encounter [facility] HealthcareEvaluation note* Diagnosis Type 2 diabetes mellitus without complication, without long-term current use of insulin- Primary Obesity (BMI 30-39.9) Hyperparathyroidism (CMS/HCC) Hyperparathyroidism, unspecified Primary hypertension ([facility]/HCC) Unspecified essential hypertension Gastroesophageal reflux disease without esophagitis Esophageal reflux Depression with anxiety Dysthymic disorder Primary hypertension ([facility])- Primary Unspecified essential hypertension Vitamin D deficiency Type 2 diabetes mellitus without complication, without long-term current use of insulin Hypothyroidism, unspecified type (CMS/HCC) Mixed hyperlipidemia ([facility]) Mixed hyperlipidemia Encounter for screening mammogram for malignant neoplasm of breast Hyperparathyroidism ([facility]) Hyperparathyroidism, unspecified Hyperparathyroidism, unspecified (E21.3) Hyperparathyroidism, unspecified Lateral epicondylitis of right elbow- Primary Obesity (BMI 30-39.9) Dental disease Unspecified disorder of the teeth and supporting structures Anxiety in acute stress reaction ([facility]) Type 2 diabetes mellitus without complications- Primary Mixed hyperlipidemia ([facility]) Mixed hyperlipidemia Other specified disorders of bone [...] supporting structures Anxiety in acute stress reaction ([facility]) Encounter for subsequent annual wellness visit (AWV) [...] Depression with anxiety Dysthymic disorder Mixed hyperlipidemia ([facility]) Mixed hyperlipidemia Encounter for screening mammogram for [...] mellitus with other specified complication Mixed hyperlipidemia ([facility]) Mixed hyperlipidemia Weight loss, unintentional Loss of weight Pain in the coccyx Other disorder of coccyx Primary hypertension (CMS/HCC)- Primary Unspecified essential hypertension Environmental allergies Other allergy, other than to medicinal agents Anxiety in acute stress reaction ([facility]) Dental disease Unspecified disorder of the teeth and supporting structures documented in this encounter [facility] HealthcareEvaluation note* Diagnosis Type 2 diabetes [...] diabetes mellitus without complications- Primary Mixed hyperlipidemia ([facility]) Mixed hyperlipidemia Other specified disorders of bone [...] supporting structures Anxiety in acute stress reaction ([facility]) Encounter for subsequent annual wellness visit (AWV) [...] Depression with anxiety Dysthymic disorder Mixed hyperlipidemia (CMS/HCC) Mixed hyperlipidemia Encounter for [...] medicinal agents Anxiety in acute stress reaction ([facility]) Dental disease Unspecified disorder of the teeth and supporting structures Type 2 diabetes mellitus without complications documented in this encounter [facility] HealthcareEvaluation note* Diagnosis Type 2 diabetes mellitus without complication, without long-term current use of insulin- Primary Obesity (BMI 30-39.9) Hyperparathyroidism ([facility]) Hyperparathyroidism, unspecified Primary hypertension ([facility]) Unspecified essential hypertension Gastroesophageal reflux disease without esophagitis Esophageal reflux Depression with anxiety Dysthymic disorder Primary hypertension ([facility])- Primary Unspecified essential hypertension Vitamin D deficiency Type 2 diabetes mellitus without complication, without long-term current use of insulin Hypothyroidism, unspecified type (CMS/HCC) Mixed hyperlipidemia ([facility]/HCC) Mixed hyperlipidemia Encounter for screening mammogram for malignant neoplasm of breast Hyperparathyroidism ([facility]) Hyperparathyroidism, unspecified Hyperparathyroidism, unspecified (E21.3) Hyperparathyroidism, unspecified Lateral epicondylitis of right elbow- Primary Obesity (BMI 30-39.9) Dental disease Unspecified disorder of the teeth and supporting structures Anxiety in acute stress reaction ([facility]) Type 2 diabetes mellitus without complications- Primary Mixed hyperlipidemia ([facility]) Mixed hyperlipidemia Other specified disorders of bone density and structure, unspecified site Environmental allergies Other allergy, other than to medicinal agents Other specified anxiety disorders Mild episode of recurrent major depressive disorder (HCC) ([facility]) Hypothyroidism, unspecified type ([facility]) Essential (primary) hypertension ([facility]) Unspecified essential hypertension Gastroesophageal reflux disease without esophagitis Esophageal reflux Hypomagnesemia Disorders of magnesium metabolism Primary hypertension (CMS/HCC) Unspecified essential hypertension Type 2 diabetes mellitus without complication, without long-term current use of insulin Dental disease Unspecified disorder of the teeth and supporting structures Anxiety in acute stress reaction ([facility]) Encounter for subsequent annual wellness visit (AWV) [...] Depression with anxiety Dysthymic disorder Mixed hyperlipidemia (CMS/HCC) Mixed hyperlipidemia Encounter for [...] loss, unintentional Loss of weight Primary hypertension ([facility])- Primary Unspecified essential hypertension Type 2 diabetes mellitus with other specified complication Mixed hyperlipidemia ([facility]) Mixed hyperlipidemia Weight loss, unintentional Loss of weight Pain in the coccyx Other disorder of coccyx Primary hypertension ([facility])- Primary Unspecified essential hypertension Environmental allergies Other allergy, other than to medicinal agents Anxiety in acute stress reaction ([facility]) Dental disease Unspecified disorder of the teeth and supporting structures Age-related osteoporosis without current pathological fracture ([facility])- Primary documented in this encounter [facility] HealthcareEvaluation note* Diagnosis Type 2 diabetes mellitus without complication, without long-term current use of insulin- Primary Obesity (BMI 30-39.9) Hyperparathyroidism (CMS/HCC) Hyperparathyroidism, unspecified Primary hypertension (CMS/HCC) Unspecified essential hypertension Gastroesophageal reflux disease without esophagitis Esophageal reflux Depression with anxiety Dysthymic disorder Primary hypertension ([facility])- Primary Unspecified essential hypertension Vitamin D deficiency Type 2 diabetes mellitus without complication, without long-term current use of insulin Hypothyroidism, unspecified type (CMS/HCC) Mixed hyperlipidemia ([facility]) Mixed hyperlipidemia Encounter for screening mammogram for [...] supporting structures Anxiety in acute stress reaction ([facility]) Encounter for subsequent annual wellness visit (AWV) in Medicare patient- Primary Type 2 diabetes mellitus without complication, without long-term current use of insulin Hypothyroidism, unspecified type (CMS/HCC) Mild episode of recurrent major depressive disorder (HCC) (CMS/HCC) Primary hypertension ([facility]) Unspecified essential hypertension Obesity (BMI 30-39.9) Type 2 diabetes mellitus without complication, without long-term current use of insulin- Primary Primary hypertension (CMS/HCC) Unspecified essential hypertension Gastroesophageal reflux disease without esophagitis Esophageal reflux Age-related osteoporosis without current pathological fracture ([facility]) Hyperparathyroidism ([facility]) Hyperparathyroidism, unspecified Hypothyroidism, unspecified type (CMS/HCC) Obesity (BMI 30-39.9) Vitamin D deficiency Depression with anxiety Dysthymic disorder Mixed hyperlipidemia (CMS/HCC) Mixed hyperlipidemia Encounter for screening mammogram for malignant neoplasm of breast Other specified disorders of bone density and structure, unspecified site Environmental allergies Other allergy, other than to medicinal agents Other specified anxiety disorders Mild episode of recurrent major depressive disorder (HCC) ([facility]) Type 2 diabetes mellitus without complications Pain [...] medicinal agents Anxiety in acute stress reaction ([facility]) Dental disease Unspecified disorder of the teeth and supporting structures Hypothyroidism, unspecified type (CMS/HCC) Essential (primary) hypertension (CMS/HCC) Unspecified essential hypertension Type 2 diabetes mellitus without complications documented in this encounter [facility] HealthcareEvaluation note* Diagnosis Type 2 diabetes mellitus without complication, without long-term current use of insulin (HCC)- Primary Obesity (BMI 30-39.9) Hyperparathyroidism (HCC) Hyperparathyroidism, unspecified Primary hypertension Unspecified essential hypertension Gastroesophageal reflux disease without esophagitis Esophageal reflux Depression with anxiety Dysthymic disorder Primary hypertension- Primary Unspecified essential hypertension Vitamin D deficiency Type 2 diabetes mellitus without complication, without long-term current use of insulin (HCC) Hypothyroidism, unspecified type Mixed hyperlipidemia Mixed hyperlipidemia Encounter for screening mammogram for malignant neoplasm of breast Hyperparathyroidism (HCC) Hyperparathyroidism, unspecified Hyperparathyroidism, unspecified (E21.3) Hyperparathyroidism, unspecified Lateral epicondylitis of right elbow- Primary Obesity (BMI 30-39.9) Dental disease Unspecified disorder of the teeth and supporting structures Anxiety in acute stress reaction Type 2 diabetes mellitus without complications (HCC)- Primary Mixed hyperlipidemia Mixed hyperlipidemia Other specified disorders of bone density and structure, unspecified site Environmental allergies Other allergy, other than to medicinal agents Other specified anxiety disorders Mild episode of recurrent major depressive disorder Hypothyroidism, unspecified type Essential (primary) hypertension Unspecified essential hypertension Gastroesophageal reflux disease without esophagitis Esophageal reflux Hypomagnesemia Disorders of magnesium metabolism Primary hypertension Unspecified essential hypertension Type 2 diabetes mellitus without complication, without long-term current use of insulin ([facility]) Dental disease Unspecified disorder of the teeth and supporting structures Anxiety in acute stress reaction Encounter for subsequent annual wellness visit (AWV) in Medicare patient- Primary Type 2 diabetes mellitus without complication, without long-term current use of insulin ([facility]) Hypothyroidism, unspecified type Mild episode of recurrent major depressive disorder Primary hypertension Unspecified essential hypertension Obesity (BMI 30-39.9) Type 2 diabetes mellitus without complication, without long-term current use of insulin (HCC)- Primary Primary hypertension Unspecified essential hypertension Gastroesophageal reflux disease without esophagitis Esophageal reflux Age-related osteoporosis without current pathological fracture Hyperparathyroidism (HCC) Hyperparathyroidism, unspecified Hypothyroidism, unspecified type Obesity (BMI 30-39.9) Vitamin D deficiency Depression with anxiety Dysthymic disorder Mixed hyperlipidemia Mixed hyperlipidemia Encounter for screening mammogram for malignant neoplasm of breast Other specified disorders of bone density and structure, unspecified site Environmental allergies Other allergy, other than to medicinal agents Other specified anxiety disorders Mild episode of recurrent major depressive disorder Type 2 diabetes mellitus without complications (HCC) Pain in the coccyx Other disorder of coccyx Weight loss, unintentional Loss of weight Primary hypertension- Primary Unspecified essential hypertension Type 2 diabetes mellitus with other specified complication (HCC) Mixed hyperlipidemia Mixed hyperlipidemia Weight loss, unintentional Loss of weight Pain in the coccyx Other disorder of coccyx Primary hypertension- Primary Unspecified essential hypertension Environmental allergies Other allergy, other than to medicinal agents Anxiety in acute stress reaction Dental disease Unspecified disorder of the teeth and supporting structures Primary hypertension Unspecified essential hypertension documented in this encounter [facility] HealthcareEvaluation note* Diagnosis Type 2 diabetes mellitus without complication, without long-term current use of insulin (HCC)- Primary Obesity (BMI 30-39.9) Hyperparathyroidism (HCC) Hyperparathyroidism, unspecified Primary hypertension Unspecified essential hypertension Gastroesophageal reflux disease without esophagitis Esophageal reflux Depression with anxiety Dysthymic disorder Primary hypertension- Primary Unspecified essential hypertension Vitamin D deficiency Type 2 diabetes mellitus without complication, without long-term current use of insulin (HCC) Hypothyroidism, unspecified type Mixed hyperlipidemia Mixed hyperlipidemia Encounter for screening mammogram for malignant neoplasm of breast Hyperparathyroidism (HCC) Hyperparathyroidism, unspecified Hyperparathyroidism, unspecified (E21.3) Hyperparathyroidism, unspecified Lateral epicondylitis of right elbow- Primary Obesity (BMI 30-39.9) Dental disease Unspecified disorder of the teeth and supporting structures Anxiety in acute stress reaction Type 2 diabetes mellitus without complications (HCC)- Primary Mixed hyperlipidemia Mixed hyperlipidemia Other specified disorders of bone density and structure, unspecified site Environmental allergies Other allergy, other than to medicinal agents Other specified anxiety disorders Mild episode of recurrent major depressive disorder Hypothyroidism, unspecified type Essential (primary) hypertension Unspecified essential hypertension Gastroesophageal reflux disease without esophagitis Esophageal reflux Hypomagnesemia Disorders of magnesium metabolism Primary hypertension Unspecified essential hypertension Type 2 diabetes mellitus without complication, without long-term current use of insulin (HCC) Dental disease Unspecified disorder of the teeth and supporting structures Anxiety in acute stress reaction Encounter for subsequent annual wellness visit (AWV) in Medicare patient- Primary Type 2 diabetes mellitus without complication, without long-term current use of insulin (HCC) Hypothyroidism, unspecified type Mild episode of recurrent major depressive disorder Primary hypertension Unspecified essential hypertension Obesity (BMI 30-39.9) Type 2 diabetes mellitus without complication, without long-term current use of insulin (HCC)- Primary Primary hypertension Unspecified essential hypertension Gastroesophageal reflux disease without esophagitis Esophageal reflux Age-related osteoporosis without current pathological fracture Hyperparathyroidism (HCC) Hyperparathyroidism, unspecified Hypothyroidism, unspecified type Obesity (BMI 30-39.9) Vitamin D deficiency Depression with anxiety Dysthymic disorder Mixed hyperlipidemia Mixed hyperlipidemia Encounter for screening mammogram for malignant neoplasm of breast Other specified disorders of bone density and structure, unspecified site Environmental allergies Other allergy, other than to medicinal agents Other specified anxiety disorders Mild episode of recurrent major depressive disorder Type 2 diabetes mellitus without complications (HCC) Pain in the coccyx Other disorder of coccyx Weight loss, unintentional Loss of weight Primary hypertension- Primary Unspecified essential hypertension Type 2 diabetes mellitus with other specified complication (HCC) Mixed hyperlipidemia Mixed hyperlipidemia Weight loss, unintentional Loss of weight Pain in the coccyx Other disorder of coccyx Primary hypertension- Primary Unspecified essential hypertension Environmental allergies Other allergy, other than to medicinal agents Anxiety in acute stress reaction Dental disease Unspecified disorder of the teeth and supporting structures Type 2 diabetes mellitus without complication, without long-term current use of insulin (HCC)- Primary Primary hypertension Unspecified essential hypertension Gastroesophageal reflux disease without esophagitis Esophageal reflux Hypothyroidism, unspecified type Mixed hyperlipidemia Mixed hyperlipidemia Right hip pain Pain in joint, pelvic region and thigh Right knee pain, unspecified chronicity Environmental allergies Other allergy, other than to medicinal agents Other specified anxiety disorders Mild episode of recurrent major depressive disorder Type 2 diabetes mellitus without complications (HCC) documented in this encounter [facility] HealthcareEvaluation note* Diagnosis Type 2 diabetes mellitus without complication, without long-term current use of insulin (HCC)- Primary Obesity (BMI 30-39.9) Hyperparathyroidism (HCC) Hyperparathyroidism, unspecified Primary hypertension Unspecified essential hypertension Gastroesophageal reflux disease without esophagitis Esophageal reflux Depression with anxiety Dysthymic disorder Primary hypertension- Primary Unspecified essential hypertension Vitamin D deficiency Type 2 diabetes mellitus without complication, without long-term current use of insulin (HCC) Hypothyroidism, unspecified type Mixed hyperlipidemia Mixed hyperlipidemia Encounter for screening mammogram for malignant neoplasm of breast Hyperparathyroidism (HCC) Hyperparathyroidism, unspecified Hyperparathyroidism, unspecified (E21.3) Hyperparathyroidism, unspecified Lateral epicondylitis of right elbow- Primary Obesity (BMI 30-39.9) Dental disease Unspecified disorder of the teeth and supporting structures Anxiety in acute stress reaction Type 2 diabetes mellitus without complications (HCC)- Primary Mixed hyperlipidemia Mixed hyperlipidemia Other specified disorders of bone density and structure, unspecified site Environmental allergies Other allergy, other than to medicinal agents Other specified anxiety disorders Mild episode of recurrent major depressive disorder Hypothyroidism, unspecified type Essential (primary) hypertension Unspecified essential hypertension Gastroesophageal reflux disease without esophagitis Esophageal reflux Hypomagnesemia Disorders of magnesium metabolism Primary hypertension Unspecified essential hypertension Type 2 diabetes mellitus without complication, without long-term current use of insulin (HCC) Dental disease Unspecified disorder of the teeth and supporting structures Anxiety in acute stress reaction Encounter for subsequent annual wellness visit (AWV) in Medicare patient- Primary Type 2 diabetes mellitus without complication, without long-term current use of insulin (HCC) Hypothyroidism, unspecified type Mild episode of recurrent major depressive disorder Primary hypertension Unspecified essential hypertension Obesity (BMI 30-39.9) Type 2 diabetes mellitus without complication, without long-term current use of insulin (HCC)- Primary Primary hypertension Unspecified essential hypertension Gastroesophageal reflux disease without esophagitis Esophageal reflux Age-related osteoporosis without current pathological fracture Hyperparathyroidism (HCC) Hyperparathyroidism, unspecified Hypothyroidism, unspecified type Obesity (BMI 30-39.9) Vitamin D deficiency Depression with anxiety Dysthymic disorder Mixed hyperlipidemia Mixed hyperlipidemia Encounter for screening mammogram for malignant neoplasm of breast Other specified disorders of bone density and structure, unspecified site Environmental allergies Other allergy, other than to medicinal agents Other specified anxiety disorders Mild episode of recurrent major depressive disorder Type 2 diabetes mellitus without complications (HCC) Pain in the coccyx Other disorder of coccyx Weight loss, unintentional Loss of weight Primary hypertension- Primary Unspecified essential hypertension Type 2 diabetes mellitus with other specified complication (HCC) Mixed hyperlipidemia Mixed hyperlipidemia Weight loss, unintentional Loss of weight Pain in the coccyx Other disorder of coccyx Primary hypertension- Primary Unspecified essential hypertension Environmental allergies Other allergy, other than to medicinal agents Anxiety in acute stress reaction Dental disease Unspecified disorder of the teeth and supporting structures Type 2 diabetes mellitus without complication, without long-term current use of insulin (HCC)- Primary Primary hypertension Unspecified essential hypertension Gastroesophageal reflux disease without esophagitis Esophageal reflux Hypothyroidism, unspecified type Mixed hyperlipidemia Mixed hyperlipidemia Right hip pain Pain in joint, pelvic region and thigh Right knee pain, unspecified chronicity Environmental allergies Other allergy, other than to medicinal agents Other specified anxiety disorders Mild episode of recurrent major depressive disorder Type 2 diabetes mellitus without complications (HCC) Right knee pain, unspecified chronicity- Primary Right hip pain Pain in joint, pelvic region and thigh Facet arthropathy, lumbar documented in this encounter [facility] HealthcareHospital Discharge instructions No data available for this section [facility] data available for this section [facility] Summary Purpose Family History Relationship Condition Age [...] and content) DATE CREATED AUTHOR 10/24/2017 [facility] DATE CREATED AUTHOR AUTHOR'S ORGANIZ ATION 09/02/2022 [facility] DATE CREATED AUTHOR AUTHOR'S ORGANIZ ATION 09/04/2022 [facility] DATE CREATED AUTHOR AUTHOR'S ORGANIZ ATION 06/07/2023 [facility] DATE CREATED AUTHOR AUTHOR'S ORGANIZ ATION 03/30/2024 [facility] DATE CREATED AUTHOR AUTHOR'S ORGANIZ ATION 10/18/2024 [facility] EPIC Patient Care team [...] September 25, 2023 End: September 25, 2023 [employer] Relationship Specialty Start Date End Date Ángel Iverson MD [address] [place] [address] PCP - General Family Medicine 07/07/23 Stella Nieto NP [address] [place] [address] Nurse Practitioner Family Medicine 07/07/23 [employer] Relationship Specialty Start Date End Date Ángel Iverson MD [address] [place] [address] PCP - General Family Medicine 07/07/23 Stella Nieto NP [address] [place] [address] Nurse Practitioner Family Medicine 07/07/23 [employer] Relationship Specialty Start Date End Date Ángel Iverson MD [address] [place] [address] PCP - General Family Medicine 07/07/23 Stella Nieto NP [address] [place] [address] Nurse Practitioner Family Medicine 07/07/23 [employer] Relationship Specialty Start Date End Date Ángel Iverson MD [address] [place] [address] PCP - General Family Medicine 07/07/23 Stella Nieto NP [address] [place] [address] Nurse Practitioner Family Medicine 07/07/23 [employer] Relationship Specialty Start Date End Date Ángel Iverson MD [address] [place] [address] PCP - General Family Medicine 07/07/23 Stella Nieto NP [address] [place] [address] Nurse Practitioner Family Medicine 07/07/23 [employer] Relationship Specialty Start Date End Date Ángel Iverson MD [address] [place] [address] PCP - General Family Medicine 07/07/23 Stella Nieto NP [address] [place] [address] Nurse Practitioner Family Medicine 07/07/23 [employer] Relationship Specialty Start Date End Date Ángel Iverson MD [address] [place] [address] PCP - General Family Medicine 07/07/23 Stella Nieto NP [address] [place] [address] Nurse Practitioner Family Medicine 07/07/23 [employer] Relationship Specialty Start Date End Date Ángel Iverson MD [address] [place] [address] PCP - General Family Medicine 07/07/23 Stella Nieto NP [address] [place] [address] Nurse Practitioner Family Medicine 07/07/23 [employer] Relationship Specialty Start Date End Date Ángel Iverson MD [address] [place] [address] PCP - General Family Medicine 07/07/23 Stella Nieto NP [address] [place] [address] Nurse Practitioner Family Medicine 07/07/23 [employer] Relationship Specialty Start Date End Date Ángel Iverson MD [address] [place] [address] PCP - General Family Medicine 07/07/23 Stella Nieto NP [address] [place] [address] Nurse Practitioner Family Medicine 07/07/23 [employer] Relationship Specialty Start Date End Date Ángel Iverson MD [address] [place] [address] PCP - General Family Medicine 07/07/23 Stella Nieto NP [address] [place] [address] Nurse Practitioner Family Medicine 07/07/23 [employer] Relationship Specialty Start Date End Date Ángel Iverson MD [address] [place] [address] PCP - General Family Medicine 07/07/23 Stella Nieto NP [address] [place] [address] Nurse Practitioner Family Medicine 07/07/23 [employer] Relationship Specialty Start Date End Date Ángel Iverson MD [address] [place] [address] PCP - General Family Medicine 07/07/23 Stella Nieto NP [address] [place] [address] Nurse Practitioner Family Medicine 07/07/23 [employer] Relationship Specialty Start Date End Date Ángle Iverson MD [address] [place] [address] PCP - General Family Medicine 07/07/23 Stella Nieto NP [address] [place] [address] Nurse Practitioner Family Medicine 07/07/23 [employer] T[employer] Rep[employer] Relationship Specialty Start Date End Date Ángel Iverson MD [address] [place] [address] PCP - General Family Medicine 07/07/23 Stella Nieto NP [address] [place] [address] Nurse Practitioner Family Medicine 07/07/23 [employer] T[employer] Rep[employer]r Relationship Specialty Start Date End Date Ángel Iverson MD [address] [place] [address] PCP - General Family Medicine 07/07/23 Stella Nieto NP [address] [place] [address] Nurse Practitioner Family Medicine 07/07/23 [employer] Rep[employer] Relationship Specialty Start Date End Date Naderer, Ángel, MD [address] [place] [address] PCP - General Family Medicine 07/07/23 Stella Nieto NP [address] [place] [address] Nurse Practitioner Family Medicine 07/07/23 [employer] T[employer] Rep[employer]r Relationship Specialty Start Date End Date Ángel Iverson MD [address] [place] [address] PCP - General Family Medicine 07/07/23 Stella Nieto NP [address] [place] [address] Nurse Practitioner Family Medicine 07/07/23 Battery T[employer] Rep[employer]r Relationship Specialty Start Date End Date Ángel Iverson MD [address] [place] [address] PCP - General Family Medicine 07/07/23 Stella Nieto NP [address] [place] [address] Nurse Practitioner Family Medicine 07/07/23 [employer] T[employer] Rep[employer]r Relationship Specialty Start Date End Date Ángel Iverson MD [address] [place] [address] PCP - General Family Medicine 07/07/23 Stella Nieto NP [address] [place] [address] Nurse Practitioner Family Medicine 07/07/23 [employer] T[employer] Rep[employer]r Relationship Specialty Start Date End Date Ángel Iverson MD [address] [place] [address] PCP - General Family Medicine 07/07/23 Stella Nieto NP [address] [place] [address] Nurse Practitioner Family Medicine 07/07/23 [employer] T[employer] Rep[employer]r Relationship Specialty Start Date End Date Ángel Iverson MD [address] [place] [address] PCP - General Family Medicine 07/07/23 Stella Nieto NP [address] [place] [address] Nurse Practitioner Family Medicine 07/07/23 [employer] T[employer] Rep[employer]r Relationship Specialty Start Date End Date Ángel Iverson MD [address] [place] [address] PCP - General Family Medicine 07/07/23 Stella Nieto NP [address] [place] [address] Nurse Practitioner Family Medicine 07/07/23 [employer] T[employer] Rep[employer]r Relationship Specialty Start Date End Date Ángel Iverson MD [address] [place] [address] PCP - General Family Medicine 07/07/23 Stella Nieto NP [address] [place] [address] Nurse Practitioner Family Medicine 07/07/23 Goals (unrecognized section and content) Goals may be documented in a n alternate section Reason for Visit (unrecogniz ed section and content) Reason Onset Date Comments Med Refill 03/02/2024 Reason Comments Med Refill Reason Comments Thyroid Problem Follow-up LAB Reason Comments Diabetes FOR RECORDS PERTAINING TO PATIENTS WHO ARE [...] BE BASED ON THE PRIMARY CLINICAL RECORDS. [employer] provides no warranty or guarantee of the accuracy or completeness of information in this document.
--- NOTE | 2024-11-07 08:36 | XR_ITS ---
[address] [address] Patient Name: KEE MANUEL MRN: [id number] date: 1955 Sex: F Assigned Patient Location: ER Current Patient Location: ER Accession/Order Number: [id number] Exam Date: 11/07/2024 09:40 Report Date: 11/07/2024 09:41 At the request of: EPIFANIO TAPIA MD Procedure: XR knee RT 3V RIGHT KNEE - 3 views CLINICAL HISTORY: swelling COMPARISON: 10/20/2024 FINDINGS: Mild tricompartmental degenerative changes of the right knee with chondral calcinosis of the menisci. No acute bony process. Moderate patellar joint effusion. Mild soft tissue swelling. There are vascular effusion. XR/XR knee RT 3V IMPRESSION: Joint effusion. Mild degenerative change. No acute osseous abnormality. Impression dictated by: Edy Delacruz M.D. 11/07/2024 9:41 AM Dictation Location: [place] [address] Electronically authenticated by: [id number] Y Date: 11/07/2024 09:41
--- NOTE | 2024-11-07 08:37 | ED.EXTPRO1 ---
HPI - Extremity Problem General Chief complaint: Extremity Problem, Nontraumatic Stated complaint: RT KNEE PAIN Time Seen by Provider: 11/07/24 08:29 Source: patient Mode of arrival: Wheelchair History of Present Illness HPI Narrative: The patient is a 69-year-old female who recently started having physical therapy for her right extremity for mostly hip and muscle pain The patient apparently almost 10 days ago started having her physical therapy session on on she had her last session after that next day the patient started having swelling of her right knee, the patient mentioned that she is not able to put fully her weight on her right knee because of the pain and the swelling and the swelling has been getting worse over the last 24 hours No fall no trauma no fever and no other concerns The patient did take Tylenol for pain that did not help her pain and off at home Related Data Home Medications �Medication �Instructions �Recorded �Confirmed alendronate 35 mg tablet 35 mg PO .WEEKLY 07/13/23 11/07/24 aspirin 81 mg tablet,delayed 81 mg PO DAILY 07/13/23 11/07/24 release (Adult Aspirin Regimen) atorvastatin 80 mg tablet 80 mg PO DAILY 07/13/23 11/07/24 cetirizine 10 mg tablet 10 mg PO DAILY 07/13/23 11/07/24 cholecalciferol (vitamin D3) 50 10,000 unit PO .TWICE WEEKLY 07/13/23 11/07/24 mcg (2,000 unit) tablet (Vitamin D3) duloxetine 30 mg capsule,delayed 30 mg PO DAILY 07/13/23 11/07/24 release levothyroxine 112 mcg tablet 112 mcg PO DAILY 07/13/23 11/07/24 lisinopril 10 mg tablet 10 mg PO DAILY 07/13/23 11/07/24 magnesium oxide 400 mg (241.3 mg 400 mg PO DAILY 07/13/23 11/07/24 magnesium) tablet metformin 750 mg tablet,extended 750 mg PO BID 07/13/23 11/07/24 release 24 hr omeprazole 20 mg capsule,delayed 20 mg PO DAILY PRN dyspepsia 07/13/23 11/07/24 release pioglitazone 15 mg tablet 15 mg PO DAILY 07/13/23 11/07/24 semaglutide 0.25 mg or 0.5 mg (2 0.25 mg subcut .WEEKLY 07/13/23 11/07/24 mg/3 mL) subcutaneous pen injector (Ozempic) triamcinolone acetonide 55 mcg 2 spray intranasal DAILY 07/13/23 11/07/24 nasal spray aerosol Previous Rx's �Medication �Instructions �Recorded diclofenac sodium 50 mg 50 mg PO Q12H PRN pain #20 tabs 11/07/24 tablet,delayed release Allergies Allergy/AdvReac Type Severity Reaction Status Date / Time Penicillins Allergy Intermediate Verified 07/13/23 18:43 Review of Systems ROS Status of ROS 10 or more systems reviewed and unremarkable except as noted in history and below PFSH PFSH Social History Little interest or pleasure in doing things: not at all Feeling down, depressed, or hopeless: not at all Exam Narrative Exam Narrative: Nurses notes and vital signs reviewed and patient is not hypoxic. General: Well-appearing and in no apparent distress. Skin: Warm, dry, no pallor noted. No rash. Head: Normocephalic, atraumatic. Right lower extremity exam: No vascular injury detected the patient have a significant edema of the right knee compared to the left almost moderate to severe effusion, no redness no hotness and the patient have decreased lateral movement with flexion at 90 degrees due to the swelling No ecchymosis no open wound or skin changes Constitutional Vital Signs, click to edit/add: Last Vital Signs Temp 99.1 F 11/07/24 08:23 Pulse 97 H 11/07/24 08:23 Resp 20 11/07/24 08:23 BP 149/85 H 11/07/24 08:23 Pulse Ox 98 11/07/24 08:23 Course Vital Signs Vital signs: Vital Signs Temperature 99.1 F 11/07/24 08:23 Pulse Rate 97 H 11/07/24 08:23 Respiratory Rate 20 11/07/24 08:23 Blood Pressure 149/85 H 11/07/24 08:23 Pulse Oximetry 98 11/07/24 08:23 Temperature 99.1 F 11/07/24 08:23 Pulse Rate 97 H 11/07/24 08:23 Respiratory Rate 20 11/07/24 08:23 Blood Pressure 149/85 H 11/07/24 08:23 Pulse Oximetry 98 11/07/24 08:23 MDM - Extremity (Nontraumatic) MDM Narrative Medical decision making narrative: The patient was treated in the ER with Toradol X-ray of the right knee shows effusion there is no acute pathology otherwise Patient provided with Adam wrap and knee immobilizer and instructed to rest her right knee and use crutches for the next 2 days in addition to elevation and rest and follow-up with orthopedic as outpatient Patient discharged home with Denisse for pain control The patient is to follow up with primary care physician in next 2-3 days or to return to the emergency department should any of the signs or symptoms worsen or new symptoms develop. The patient agrees with the following Diagnosis and Treatment plan and the patient will be discharged home. Discharge Plan Discharge Chief Complaint: Extremity Problem, Nontraumatic Clinical Impression: Effusion of knee, Arthritis Patient Disposition: Home, Self-Care Time of Disposition Decision: 09:53 Prescriptions / Home Meds: New diclofenac sodium 50 mg tablet,delayed release (DR/EC) 50 mg PO Q12H PRN (Reason: pain) Qty: 20 0RF No Action duloxetine 30 mg capsule,delayed release(DR/EC) 30 mg PO DAILY alendronate 35 mg tablet 35 mg PO .WEEKLY lisinopril 10 mg tablet 10 mg PO DAILY metformin 750 mg tablet extended release 24 hr 750 mg PO BID atorvastatin 80 mg tablet 80 mg PO DAILY cetirizine 10 mg tablet 10 mg PO DAILY magnesium oxide 400 mg (241.3 mg magnesium) tablet 400 mg PO DAILY pioglitazone 15 mg tablet 15 mg PO DAILY Ozempic 0.25 mg or 0.5 mg (2 mg/3 mL) pen injector 0.25 mg SUBCUT .WEEKLY aspirin [Adult Aspirin Regimen] 81 mg tablet,delayed release (DR/EC) 81 mg PO DAILY triamcinolone acetonide 55 mcg aerosol,spray 2 spray INTRANASAL DAILY levothyroxine 112 mcg tablet 112 mcg PO DAILY cholecalciferol (vitamin D3) [Vitamin D3] 50 mcg (2,000 unit) tablet 10,000 unit PO .TWICE WEEKLY omeprazole 20 mg capsule,delayed release(DR/EC) 20 mg PO DAILY PRN (Reason: dyspepsia) Print Language: Tajik Instructions: Swollen Knee Joint (ED) Referrals: HEMA STONER [Physician, Orthopedics] - 1 week Stella Nieto NP [Primary Care Provider, Family Practice] - 1 week Discharge Date/Time: 11/07/24 10:11
[2024-11-07] MEDS: KETOROLAC TROMETHAMINE 30 MG/ML VIAL 15 MG IM (08:48)
== END 2024-11-07 10:11 | disposition home or self-care (01) ==
PROVIDERS: Emergency Provider Emergency Medicine; PCP Nurse Practitioner
DX: M25.461 Effusion, right knee (principal); M17.11 Unilateral primary osteoarthritis, right knee
CPT/HCPCS: 73562; 96372; 99284; J1885

== ENCOUNTER 2024-11-08 11:33 | Emergency (ER) | payer MEDICARE, SELFPAY ==
--- OUTSIDE RECORDS SUMMARY | 2023-08-11 06:20 | XMS_ITS ---
Author Organization [facility] Address [address] [place] [address] Care Team Providers Care Hook Up Driver Name Role Phone Darrick Medina Unavailable [phone] REASON FOR VISIT RIGHT ELBOW OA Encounters Encounter Location Date Provider Diagnosis [facility] [address] [facility] [place] [address] [place] [address] 08/11/2023 Darrick Medina Plan Of Treatment No Information Progress Notes * KEE MANUEL KDOB:1955 (69 yo F)Acc No.[id number]:08/11/2023 Patient: KEE GUILLEN Provider: Levi Medina MD :1955 A ge:68 Y S ex:Female Date:08/11/2023 Address:[address] [place], [place] [id number] Subjective: * Chief Complaints: * 1 . RIGHT ELBOW OA. * Medical History: Objective: * Vitals: Assessment: Plan: * Treatment: Forms: * Images: * Electronic signature of Mando Medina MD on 11/08/2024 at 11:45 AM EDT Sign off status: Pending * Provider: Levi Medina MD Date: 08/11/2023 Generated for Rubeni ng/Faaprilg/eTransmitting on: 0 11/08/2024 11:45 AM EDT
[2024-11-08 11:45] VITALS: BP 156/98; PULSE 83; TEMP 36.5; O2SAT 100; BMI 28.1
--- OUTSIDE RECORDS SUMMARY | 2024-11-08 11:45 | XMS_ITS | Continuity of Care Document ---
Author Name [facility] Organization [facility] Care Team Providers Care Direct Customer Service Representative Name Role Phone [facility] Unavailable Unavailable Social History Combined list of available smoking, tobacco, and other social history from Department of Defense and Veterans Affairs facilities. Social History Type Response Date Comment Sourc e This section is an empty social history section. [facility]
--- OUTSIDE RECORDS SUMMARY | 2024-11-08 11:46 | XMS_ITS | Patient Health Record ---
Author Organization [facility] Serv es Address [address] [place] [address] Care Team Providers Care Fashion Artist Name Role Phone Marybethsom Alexandro Primary Care Provider Fabienne Mercer Unavailable Dr. Humza Weinberg Unavailable [phone] Yoly Florence Unavailable [phone] Marcela Sanchez Unavailable [phone] Reason For Referral No Information Medications Medication SIG (Take, Route, Fr equency, Duration) Notes Start Date End Date Status Ibuprofen 800 MG 1 tablet with food o r milk as needed Orally Three times a day 02/03/2024 Active Encounters Encounter Location Date Provider Diagnosis [facility] [address] [place] [address] 05/10/2024 Fabienne Moses [place] [address] [place] [address] 08/04/2024 Fabienne Moses [facility] [address] [place] [address] 10/07/2024 Humza Weinberg [facility] [address] [place] [address] 07/05/2024 Yoly Florence Encounter for dental examination and cleaning with abnormal findings Z01.21 [facility] [address] [place] [address] 02/03/2024 Fabienne Moses Cracked tooth K03.81 and Partial loss of teeth, unspecified cause, class I K08.401 [facility] [address] [place] [address] 08/25/2024 Fabienne Moses Dental caries on pit and fissure surface penetrating into dentin K02.52 and Necrosis of pulp K04.1 [facility] [address] [place] [address] 01/02/2024 Yoly Florence Chronic periodontitis, generalized, slight K05.321 Assessments Encounter Date Diagnosis (ICD Code) Assessment Notes Treatment Notes Treatment Clinical Notes Section Notes 01/02/2024 Chronic periodontitis, generalized, slight (ICD-10 - K05.321) 02/03/2024 Cracked tooth (ICD-10 - K03.81) 07/05/2024 Encounter for dental examination and cleaning with abnormal findings (ICD-10 - Z01.21) 08/25/2024 Dental caries on pit and fissure surface penetrating into dentin (ICD-10 - K02.52) 08/25/2024 Necrosis of pulp (ICD-10 - K04.1) 02/03/2024 Partial loss of teeth, unspecified cause, class I (ICD-10 - K08.401) Plan Of Treatment Next Appt Details Provider Name:Humza Weinberg, 0 11/15/2024 10:30:00 AM, [place], [address], Provider Name:Humza Weinberg, 0 12/17/2024 03:00:00 PM, [place], [address], Provider Name:Yoly Caballero on, 01/17/2025 10:30:00 AM, [address] [place], [address], Provider Name:Yoly Caballero on, 02/03/2025 09:00:00 AM, [address] [place], [address], Insurance Providers Payer Name Payer Address Payer Phone Subscriber Number Group Number Insured Name Patient Relationship to Insured Coverage Start Date Coverage End Date [employer] [address] [place] [address] [id number] MAR KEE Self - patient is the insured 5 5 MEDICARE CGS 1 TIFFANY RODRÍGUEZ [place] [address] [id number] MAR KEE Self - patient is the insured 3
--- OUTSIDE RECORDS SUMMARY | 2024-11-08 11:46 | XMS_ITS | Patient Health Record ---
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 [address] [place] [address] [id number] KEE MANUEL Self - patient is the insured Medical (General) History Medical History History ICD Code Depression Anxiety CPAP Machine: Drug Allergies
--- OUTSIDE RECORDS SUMMARY | 2024-11-08 11:46 | XMS_ITS | Clinical Summary ---
Author Organization [email or web address] [facility] tem Address [id number] [address] [place] [address] Care Team Providers Care Pump Rebuilder Name Role Phone DedeStella patel Bola OCHOAN-MANAGER TECHNICAL TRAINING Primary Care Provider Social History Tobacco Use [...] file Insurance MEDICARE [place]ICAID [place] Care Teams Pump Rebuilder Relationship Specialty Start Date End Date Stella Nieto, ENTERPRISE APPLICATION ARCHITECT-MANAGER TECHNICAL TRAINING PCP - General Nurse Practitioner 06/05/23
[2024-11-08 11:54] VITALS: PULSE 70
--- NOTE | 2024-11-08 17:35 | ED.GENADUL1 ---
HPI HPI - General Adult General Chief complaint: Extremity Injury, Lower Stated complaint: R FOOT SWOLLEN Time Seen by Provider: 11/08/24 12:00 Source: patient Mode of arrival: Wheelchair Limitations: physical limitation History of Present Illness HPI narrative: 69-year-old female to the emergency department chief complaint of ankle swelling. Patient reports she was recently here with knee swelling. She reports that she has been wearing an Adam wrap around her knee as well as a knee immobilizer and is now developed swelling around her ankle. She denies any pain. No redness or warmth. No fever, sweats, chills. She is concerned about blood clot. Related Data Home Medications �Medication �Instructions �Recorded �Confirmed alendronate 35 mg tablet 35 mg PO .WEEKLY 07/13/23 11/07/24 aspirin 81 mg tablet,delayed 81 mg PO DAILY 07/13/23 11/07/24 release (Adult Aspirin Regimen) atorvastatin 80 mg tablet 80 mg PO DAILY 07/13/23 11/07/24 cetirizine 10 mg tablet 10 mg PO DAILY 07/13/23 11/07/24 cholecalciferol (vitamin D3) 50 10,000 unit PO .TWICE WEEKLY 07/13/23 11/07/24 mcg (2,000 unit) tablet (Vitamin D3) duloxetine 30 mg capsule,delayed 30 mg PO DAILY 07/13/23 11/07/24 release levothyroxine 112 mcg tablet 112 mcg PO DAILY 07/13/23 11/07/24 lisinopril 10 mg tablet 10 mg PO DAILY 07/13/23 11/07/24 magnesium oxide 400 mg (241.3 mg 400 mg PO DAILY 07/13/23 11/07/24 magnesium) tablet metformin 750 mg tablet,extended 750 mg PO BID 07/13/23 11/07/24 release 24 hr omeprazole 20 mg capsule,delayed 20 mg PO DAILY PRN dyspepsia 07/13/23 11/07/24 release pioglitazone 15 mg tablet 15 mg PO DAILY 07/13/23 11/07/24 semaglutide 0.25 mg or 0.5 mg (2 0.25 mg subcut .WEEKLY 07/13/23 11/07/24 mg/3 mL) subcutaneous pen injector (Ozempic) triamcinolone acetonide 55 mcg 2 spray intranasal DAILY 07/13/23 11/07/24 nasal spray aerosol Previous Rx's �Medication �Instructions �Recorded diclofenac sodium 50 mg 50 mg PO Q12H PRN pain #20 tabs 11/07/24 tablet,delayed release Allergies Allergy/AdvReac Type Severity Reaction Status Date / Time Penicillins Allergy Intermediate Hives Verified 11/08/24 11:51 Opioid HPI Opioid Management Most Recent Opioid Data: Last Pain Scale 7 07/13/23, 18:46 Review of Systems ROS Status of ROS 10 or more systems reviewed and unremarkable except as noted in history and below PFSH PFSH Social History Little interest or pleasure in doing things: not at all Feeling down, depressed, or hopeless: not at all Exam Narrative Exam Narrative: VITALS: I have reviewed the triage vital signs. GENERAL: Well developed, well appearing adult in no acute distress. NEURO: Alert and oriented. Moves all extremities. Face is symmetric and expressive. EYES: PERRL. No scleral icterus or conjunctival injection. No discharge. HENT: Normocephalic, atraumatic. Hearing is grossly intact. Nares grossly patent and without discharge. Mucous membranes moist. NECK: No JVD. Patient moves neck without restriction. CARDIO: Rhythm regular. Normal rate. No murmur, rub, or gallop. Pulses equal bilaterally in the upper and lower extremity. No lower extremity edema. PULM: Lungs clear to auscultation in all senior. No wheezes, rales, or rhonchi. No conversational dyspnea. No splinting, stridor, or accessory muscle use. Right lower Extremity: DP and PT pulses intact. Limb is similar color and temperature to the contralateral limb. Compartments soft. Trace ankle swelling. No ecchymosis. No medial malleolus tenderness. No lateral malleolus tenderness. No tenderness at the base of the fifth metatarsal. No midfoot tenderness. No fibular head tenderness. Able to bear weight with arches maintained. Sensation is intact over the foot and lower leg. Dorsiflexion/plantar flexion, knee flexion/extension, hip flexion/extension are grossly intact by strength testing. SKIN: Warm and dry. Normal turgor. No rash or lesions appreciated. PSYCH: Mood, affect, and interaction is appropriate to the setting. Constitutional Vital Signs, click to edit/add: Last Vital Signs Temp 97.7 F 11/08/24 11:45 Pulse 70 11/08/24 11:54 Resp 16 11/08/24 11:45 BP 156/98 H 11/08/24 11:45 Pulse Ox 100 11/08/24 11:45 O2 Del Method Room Air 11/08/24 11:45 Course Vital Signs Vital signs: Vital Signs Temperature 97.7 F 11/08/24 11:45 Pulse Rate 83 11/08/24 11:45 Respiratory Rate 16 11/08/24 11:45 Blood Pressure 156/98 H 11/08/24 11:45 Pulse Oximetry 100 11/08/24 11:45 Oxygen Delivery Method Room Air 11/08/24 11:45 Temperature 97.7 F 11/08/24 11:45 Pulse Rate 70 11/08/24 11:54 Respiratory Rate 16 11/08/24 11:45 Blood Pressure 156/98 H 11/08/24 11:45 Pulse Oximetry 100 11/08/24 11:45 Oxygen Delivery Method Room Air 11/08/24 11:45 Medical Decision Making MDM Narrative Medical decision making narrative: 69-year-old female to the emergency department chief complaint of right ankle swelling. Vital stable, the patient is afebrile. She has dependent edema in that ankle now with decreased venous return due to the knee immobilizer/Aadm wrap she is wearing around her knee. Will obtain a duplex. Patient agrees with this plan. The limb is neurovascularly intact. No evidence of infectious process. Duplex is negative. Discussed with the patient. Recommended compression stockings. Return precautions were discussed. Follow-up with PCP. Patient was discharged home. Discharge Plan Discharge Chief Complaint: Extremity Injury, Lower Clinical Impression: Dependent edema Patient Disposition: Home, Self-Care Time of Disposition Decision: 15:09 Condition: Good Mode of Transportation: Private Vehicle Prescriptions / Home Meds: No Action duloxetine 30 mg capsule,delayed release(DR/EC) 30 mg PO DAILY alendronate 35 mg tablet 35 mg PO .WEEKLY lisinopril 10 mg tablet 10 mg PO DAILY metformin 750 mg tablet extended release 24 hr 750 mg PO BID atorvastatin 80 mg tablet 80 mg PO DAILY cetirizine 10 mg tablet 10 mg PO DAILY magnesium oxide 400 mg (241.3 mg magnesium) tablet 400 mg PO DAILY pioglitazone 15 mg tablet 15 mg PO DAILY Ozempic 0.25 mg or 0.5 mg (2 mg/3 mL) pen injector 0.25 mg SUBCUT .WEEKLY aspirin [Adult Aspirin Regimen] 81 mg tablet,delayed release (DR/EC) 81 mg PO DAILY triamcinolone acetonide 55 mcg aerosol,spray 2 spray INTRANASAL DAILY levothyroxine 112 mcg tablet 112 mcg PO DAILY cholecalciferol (vitamin D3) [Vitamin D3] 50 mcg (2,000 unit) tablet 10,000 unit PO .TWICE WEEKLY omeprazole 20 mg capsule,delayed release(DR/EC) 20 mg PO DAILY PRN (Reason: dyspepsia) diclofenac sodium 50 mg tablet,delayed release (DR/EC) 50 mg PO Q12H PRN (Reason: pain) Qty: 20 0RF Print Language: Tajik Instructions: Edema (ED) Additional Instructions: Call the office of your primary care doctor to arrange for follow-up within the above-stated timeframe. Your ED visit was focused on your acute issue and does not replace primary care. You should review your labs, imaging, and diagnoses from this ED visit with your primary care physician. There may be non-emergent/ incidental findings that need further evaluation. You should review your vital signs including blood pressure with your PCP. If you were prescribed medications you should discuss possible side-effects and drug interactions with your pharmacist. Call 911 or go to the nearest Emergency Department if you develop any new or worsening symptoms. Obtain compression stockings wear when on the right lower extremity while you are wearing the knee brace. Referrals: Stella Nieto NP [Primary Care Provider, Family Practice] - 1 week Discharge Date/Time: 11/08/24 15:20
== END 2024-11-08 15:20 | disposition home or self-care (01) ==
PROVIDERS: Emergency Provider Student in an Organized Health Care Education/Training Program; PCP Nurse Practitioner
DX: R60.0 Localized edema (principal)
CPT/HCPCS: 93971; 99284